=== PATIENT | male | born 1960 | race Caucasian/White ===

== ENCOUNTER 2019-04-10 10:50 | Inpatient (IN) | payer MEDICAID, SELFPAY ==
[2019-04-13] VITALS (12 sets, daily range): BP systolic 116–148; BP diastolic 82–102; PULSE 82–134; RESP 14–20; TEMP 36.5–37.5; O2SAT 90–99
[2019-04-13] MEDS: ipratropium-albuterol 3 mL Neb INHALATION ×2 (02:27→08:55)
[2019-04-13] MEDS: LORazepam 2 mg/mL INJ 1 mL IVP (07:37)
[2019-04-13] MEDS: folic acid 1 mg Tablet PO (08:25)
[2019-04-13] MEDS: multivitamin therapeutic Tablet 1 TAB PO (08:25)
[2019-04-13] MEDS: predniSONE 20 mg Tablet PO (08:25)
[2019-04-13] MEDS: duloxetine 20 mg Capsule PO (08:25)
[2019-04-13] MEDS: thiamine 100 mg Tablet PO (08:25)
[2019-04-13] MEDS: nicotine 21 mg Patch 1 PATCH TRANSDERMA (08:25)
[2019-04-13] MEDS: LORazepam 2 mg Tablet PO (09:31)
--- NOTE | 2019-04-13 10:57 | PM.PN ---
Subjective Subjective: Interval history: Overnight patient THALIA went up to greater than 20. This morning he was noted to be extremely jittery and tachycardic with a withdrawal of Precedex. He did receive some IV Ativan. Since resuming the Precedex this morning he is now more calm and not withdrawing. Vitals/I&O/Wt Last Vital Signs Temp 97.7 F 04/13/19 04:00 Pulse 104 H 04/13/19 09:00 Resp 16 04/13/19 08:58 BP 116/82 04/13/19 04:00 Pulse Ox 97 04/13/19 04:00 04/12/19 04/13/19 04/13/19 22:59 06:59 14:59 Intake Total 450 / 450 Balance 450 / 450 Weight last 48 hrs Weight 59.931 kg Physical Exam Const: COMMON NORMALS: no apparent distress, oriented x3 and alert GENERAL APPEARANCE: comfortable Resp: COMMON NORMALS: normal respiratory effort, no retractions, no use of accessory muscles and clear to auscultation bilaterally AUSCULTATION: clear to auscultation bilaterally Cardio: COMMON NORMALS: regular rate, regular rhythm, S1 normal heart sound and S2 normal heart sound RATE: regular rate RHYTHM: regular rhythm HEART SOUNDS: S1 normal and S2 normal GI: COMMON NORMALS: normal to inspection, nondistended, normoactive bowel sounds and non-tender Extremity: COMMON NORMALS: normal to inspection Neuro: COMMON NORMALS: oriented x3, CN's II-XII intact bilaterally and moves all extremities SENSORIUM/ORIENTATION: Yes alert Psych: COMMON NORMALS: mental status grossly normal OTHER: depressed Data Labs: Other Labs: All Labs last 24 hrs except CBC/BMP 04/12/19 04/12/19 03:04 03:04 RBC 3.82 L MCV 103.7 H D MCH 34.0 MCHC 32.8 RDW 13.4 MPV 10.2 Neut % (Auto) 79.2 Lymph % (Auto) 15.8 [place] % (Auto) 4.6 Eos % (Auto) 0.0 Baso % (Auto) 0.2 Neut # (Auto) 5.0 Lymph # (Auto) 1.0 [place] # (Auto) 0.3 Eos # (Auto) 0.0 Baso # (Auto) 0.0 Nucleated RBC % (a uto) 0 Nucleated RBCs # 0.0 GFR Calculation 172.0 H Random Glucose 175 H Calcium 9.6 Total Bilirubin 0.4 AST 86 H ALT 58 H Alkaline Phosphata se 108 Total Protein 6.5 L Albumin 4.6 Globulin 1.9 A&P Assessment and plan (1) COPD (chronic obstructive pulmonary disease): Status: Acute Code(s): J44.9 - Chronic obstructive pulmonary disease, unspecified (2) Alcohol withdrawal delirium: Poorly controlled with Ativan. With higher doses patient was noted to be going into deep sedation. Will stop ativan and switch to librium 50mg q8h. Also on Precedex infusion. Will aim to titrate down. Started On Cymbalta today. 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
[2019-04-13] MEDS: chlordiazePOXIDE 25 mg Capsule 50 MG PO (12:02)
--- NOTE | 2019-04-13 13:52 | PC.NURSE ---
PT resltess all morning requesting to leave and smoke cigarettes. Attmepting to get out of bed all morning. Bed alarm set, seizure precautions explained. Risks of DT's explained. Pt expeiriencing visual hallucinations seeing people out there plotting against him. Pt sweating and tremoring. Precedex drip restarted (see Mar) and other medications adjusted. at 1235 Pt attempting to get out of bed, RN in notices cigarettes in pt pocket. RN states that pt can't keep those in the room with him, that she will keep them at nurses station until his discharge. Pt refuses to be from cigarettes insists that he needs to go smoke. RN state she will have Dr. Ibanez come have conversation with pt. 1310 Dr. Ibanez at bedside along with Ace from Security. Policy on keeping cigarettes explained, risks of alcohol withdrawal explained. Pt insists on wanting to leave. Pt friend Gilson called to come get him per his request.
--- NOTE | 2019-04-13 14:34 | PC.CHAP ---
Pastoral Care Encounter/Spiritual Assessment Type of Contact [] Declined mud temperer visit [] Patient/Family/Request visit [] Outpatient visit [] Follow-up visit [] Physician referral [] Code/Alert [x] Routine visit [] Staff referral [] Actively dying [] Patient sleeping [] Family support [] [] Out of room [] Palliative care [] [] Receiving care in room [] Pre-surgical visit [] Trauma [] Long length of stay [] ICU visit [] Other: Relational/Emotional Strength [] Patient feels connected with others/family/visitors/staff [x Distress [x] Loneliness/isolation [] Abandonment Spirituality of Patient [x] Person of Keisha [x] Attends Restorationism of their Keisha [] Believes in Prayer [x] Reads Bible or Pentecostal materials [] There are Spiritual issues to be addressed Black Puller Interventions [x] Prayer [x] Active listening [] Non-anxious presence [x] Spiritual/emotional support [x] Crisis/trauma care [x] Spiritual counseling [] Bereavement support [] Provided bereavement packet [] Provided Bible/devotional materials [] Provided toy/stuffed animal, coloring book to patient or family member [] Completed spiritual assessment [] Provided Communion [] Anointing/[place] [] Salvation [] Other: Impact on Illness or Injury [] Angry [] Fearful [x] Anxious [] Often cries [] Exhaustion [] Unable to work [] Unable to attend voodoo [] Unable to walk/stand [] Unable to read [x] Unable to drive [] Unable to eat/drink [] Unable to sleep [x] Unable to be with family [] Other: Summary Talkive good commuination good attidue resppnsive to what is going on Time spent with patient 10 mins
--- NOTE | 2019-04-13 16:08 | PC.NURSE ---
Pt left AMA at 1515. Escorted to door with RN and friend Gilson. Belongings sent with pt.
--- NOTE | 2019-04-13 17:36 | P.CONIM_ITS ---
Providers/Reason for Consult Consulting Physican/Specialty*: Prem Smyth MD. Psychiatry. Reason for Consult*: Question of capacity for medical decision making Attending Physician: Meri Ibanez MD Primary Care Provider: Lazaro Mack MD Psych Consult HPI History of Present Illness Vasyl Reis is a 58 year old male who presented to the ICU after presenting to the ER with some dizziness and possible respiratory problems. Upon arrival he was also noted to be intoxicated and was admitted to the ICU. He has been here for a few days with his withdrawal being managed. He is a limited historian secondary to likely memory issues as well as guardedness related to hi s ultimate goals. He was upset multiple times during the hospitalization due to issues like not being able to smoke and the treatment team holding him down. There have been moments where he pulled his line out but he did allow them to re-establish a peripheral line. Per the treatment team he had a extensive conversation with him yesterday about the plan and ultimately if they can get another day or so in of treating his withdrawal they would feel comfortable discharging him and will give him prescriptions that he apparently has run out of. However today he is decided that he wants to leave. During the encounter there were moments where he was frustrated and upset with this radio script writer secondary to me identifying the fact that AMA discharges generally do not come with prescription coverage given that this physician has not had a chance to bring all concerns to a medically appropriate end. He understood the conversation and the points this radio script writer was making, however he also demonstrated very limited impulse control which seems to be clouding his ability to make the right decision. He was not the best historian. He did report that he gets around town with the assistance of a friend of the family and that he does not drive. He understands the impact of his drinking in the sense that he knows he could be bad he did not acknowledge that it was bad for him. But he was very driven by what is allowed. And per his report he is allowed to drink, it is not against the law. I discussed with him concerns about his beliefs and desire about getting certain prescriptions which was reportedly my goal of coming to the hospital in the first place, given that 1 of the medications he feels he should get is Ativan and he still has a little mild gait instability which is expected given that he has not really walked around for 3 or 4 days. He acknowledged his instability but stated they were keeping me in bed and saying that they were afraid I might fall. I am not going to fall. But he gives no rational argument as to how he knows that he wouldn't fall. We discussed the alternatives to treatment but he was focused on what he wanted and what he could not be prevented from doing. We discussed the risks of disengagement from treatment and he appeared to understand but was unwilling to consider another day of treatment. Ultimately the conversation ended after I had stepped out and talk to the doctor about her plans for prescriptions in the event he did leave AMA and return to convey that information and he angrily stood up and demanded to leave reporting that he would just get the prescriptions from somebody else. PFSH NPU PFSH: Statuses (acute, chronic, etc) shown below reflect problem list status as previously entered and may not be historically accurate Medical History Alcohol withdrawal delirium (Acute) COPD (chronic obstructive pulmonary disease) (Acute) continue nebulization q4h. Taper steroids to 10mg po qd. Social History Smoking and tobacco status: current every day smoker Alcohol intake: current Alcohol intake frequency: 3 or more drinks per day Alcohol type: hard liquor Substance/Drug Use: current Mental Status Exam MSE Comments: This is an underweight white male appearing older than his stated age with adequate dress and grooming but limited eye contact. No abnormal movements except for significant psychomotor retardation. Semicooperative with exam in mild distress sometimes moderate distress. Speech was decreased rate and volume with occasional bouts of raising his voice. Mood described as fine affect irritable. Thought process organized. Thought content: Patient denied any suicidal or homicidal ideation, there were no delusions reported or noted, he denied any auditory or visual hallucinations. Attention and concentration were intact and memory was generally reliable but none were formally tested. He is alert and oriented x3. Insight and judgment are limited. Vitals/I&O/Wt Last Vital Signs Temp 99.5 F 04/13/19 08:00 Pulse 88 04/13/19 14:00 Resp 20 H 04/13/19 14:00 BP 148/102 04/13/19 12:00 Pulse Ox 90 04/13/19 10:00 04/13/19 04/13/19 04/13/19 06:59 14:59 22:59 Intake Total 450 / 450 50.14 / 50.14 Balance 450 / 450 50.14 / 50.14 Weight last 48 hrs Weight 59.931 kg A&P Additional A&P Information Additional A&P Information: This is a 58-year-old white male with a history of alcohol use disorder, with recent ICU admission secondary to medical issues as well as withdrawal who presents desiring to discharge AMA with questions about his decision-making capacity. 1. Patient is capable of understanding the information provided to him including the risks, benefits and alternatives of treatment. 2. Patient appears to be having a common limitation seen with people with addictions that the drive to return to his smoking and to a lesser degree his drinking are clouding his judgment. 3. Additionally he may have some further issues related to a history of a TBI he reports which might be impacting his impulse control. 4. We will certainly not give him medication without leaving prior to treatment being concluded. 5. I would state that in situations like this when there is some ambiguity about capacity that he be allowed to exercise his civil liberties. Especially given that we are not suggesting that he have the door opened and he walked out in the elements and make his way home, but that the support network that he generally relies on is mobilized for his discharge. They have been made abreast of the concerns. And they are used to him being in this condition to a large extent. Attestations NPU Medical Necessity Statement*: Inpatient hospitalization is medically necessary and the clinically appropriate intervention at this time. However patient has requesting to leave AMA. We will defer to the treating physician but support her plan to allow AMA discharge as noted in this document. Coding Level of Care Code Acute [facility] Caretaker for Josey Hope
--- NOTE | 2019-04-14 10:47 | PC.NURSE ---
[facility] at [place] on phone stating Mr. Reis is looking for his Zyprexa and Hydrocodone prescriptions. Double checked with Dr Ibanez , via phone, Pt left AMA, no prescriptions given. Informed [facility] staff of this.
--- NOTE | 2019-05-27 07:46 | PM.DCS ---
Discharge Providers Date of Admission: 04/10/19 10:50 Date of Discharge: 04/13/19 Attending Provider at Admission: Meri Ibanez MD Attending Provider at Discharge: Meri Ibanez MD Primary Care Provider: Lazaro Mack MD Diagnoses at Discharge Discharge Diagnosis (1) COPD (chronic obstructive pulmonary disease): Status: Acute Problem details: continue nebulization q4h. Taper steroids to 10mg po qd. (2) Alcohol withdrawal delirium: Status: Acute Reason for Visit Reason for Visit: Reason For Visit: Copd Exacerbation, Alcohol Intoxication Hospital Course Discharge Summary: patient left AMA with his friend Gilson in spite of being counselled as to adverse effects such as risk of withdrawal, respiratory arrest and even . He is alert, awake at time of discharge, off precedex and wishes to leave AMA. Discharge Data Vitals: Last Vital Signs Temp 99.5 F 04/13/19 08:00 Pulse 88 04/13/19 14:00 Resp 20 H 04/13/19 14:00 BP 148/102 04/13/19 12:00 Pulse Ox 90 04/13/19 10:00 Discharge Plan Discharge Patient Disposition: Left Against Medical Advice Condition: Stable Prescriptions: No Action No Known Home Medications RF: 0 Discharge Date/Time: 04/13/19 15:15 Discharge Attestations Time Spent in Discharge Care*: other Quality Metrics Clinical Quality Measures During this hospital stay, did patient experience: None Coding Level of Care Code Acute Technical Associate for Chg Fwd Diagnoses COPD (chronic obstructive pulmonary disease) J44.9 Alcohol withdrawal delirium F10.231
== END 2019-04-13 15:15 | disposition left against medical advice (07) | DRG 894 ==
PROVIDERS: Admitting Provider Student in an Organized Health Care Education/Training Program; Emergency Provider Student in an Organized Health Care Education/Training Program; Family Provider Family Medicine; PCP Family Medicine; Referring Provider Student in an Organized Health Care Education/Training Program; Visit Provider Student in an Organized Health Care Education/Training Program
DX: F10.229 Alcohol dependence with intoxication, unspecified (principal); F10.239 Alcohol dependence with withdrawal, unspecified; Y90.8 Blood alcohol level of 240 mg/100 ml or more; J44.9 Chronic obstructive pulmonary disease, unspecified; F17.210 Nicotine dependence, cigarettes, uncomplicated
CPT/HCPCS: 12345; 36415; 36416; 36600; 71045; 80053; 80307; 81001; 82550; 82803; 82962; 83735; 83880; 84484; 85007; 85025; 85027; 87040; 87804; 93005; 94640; 96372; 96374; 96375; 96376; 97161; 97530; 99252; 99285; G0378; J0456; J1630; J1650; J1885; J2060; J2920; J2930; J7512; J7611; J7614; J7644; J7799

== ENCOUNTER 2020-07-10 18:58 | Emergency (ER) | payer MEDICAID, SELFPAY ==
[2020-07-10 19:01] VITALS: BP 124/83; PULSE 92; RESP 14; TEMP 36.8; O2SAT 94; BMI 19.1
--- NOTE | 2020-07-10 19:06 | ED_ITS ---
HPI - Back Pain/Injury General: Chief Complaint: Extremity Injury, Lower Stated Complaint: BILAT LOWER EXT PAIN Time Seen by Provider: 07/10/20 18:59 Source: patient and EMS Mode of arrival: EMS Limitations: no limitations History of Present Illness: HPI Narrative: 59-year-old male who has a history of chronic pain with chronic extremity pain from from an injury years ago. He states he has been in pain for years. He states that he had a fall roughly a month ago and injured his lower back. He states he been having increasing back and leg pain since then. He states he been having difficulty walking. Denies any leg injuries. Rates his pain a 7 out of 10. Denies hitting his head. Denies any fevers. Associated symptoms: Deny abdominal pain, chills, dysuria, fever(s), nausea or vomiting Review of Systems Const: Denies: fever(s), chills, body aches or change in appetite Eyes: Denies: blurry vision or eye discomfort ENMT: Denies: throat pain or dental pain Card: Denies: chest pain Resp: Denies: dyspnea GI: Denies: abdominal pain, nausea, vomiting or diarrhea : Denies: dysuria Musc: Reports: back pain and extremity pain Skin/Breast: Denies: rash Neuro: Denies: headache(s) Psych: Denies: depression Gabe/Lymph: Denies: easy bruising All/Imm: Denies: urticaria [facility] ED PFSH: Medical History (Updated 07/10/20 @ 21:37 by Crystal Javed MD) Alcohol withdrawal delirium COPD (chronic obstructive pulmonary disease) continue nebulization q4h. Taper steroids to 10mg po qd. Social History Smoking and tobacco status: current every day smoker Alcohol intake: current Alcohol intake frequency: 3 or more drinks per day Alcohol type: hard liquor Physical Exam Const: COMMON NORMALS: no acute distress, patient oriented x3 and healthy appearing HENMT: COMMON NORMALS: normocephalic and atraumatic HEAD & SCALP: normocephalic and atraumatic Eye: COMMON NORMALS: Equal, round and reactive pupils present and EOMs intact bilaterally PUPIL: Yes Equal, round and reactive pupils present Neck/C-Spine: COMMON NORMALS: full ROM and supple Chest: COMMONS NORMALS: normal inspection of the chest and normal palpation of entire chest wall Resp: COMMON NORMALS: normal respiratory effort, No retractions, No use of accessory muscles and clear to auscultation bilaterally AUSCULTATION: clear to auscultation bilaterally Cardio: COMMON NORMALS: regular rate, regular rhythm and No murmurs present (Cardio) RATE: regular rate RHYTHM: regular rhythm GI: COMMON NORMALS: Normal to inspection, nondistended, normoactive bowel sounds present, Soft to palpation, non-tender and no masses PALPATION: Yes Soft to palpation Back/Pelvis: OTHER: Tenderness along L and T-spine with no obvious abnormali ties Extremity: COMMON NORMALS: normal to inspection and full ROM Neuro: COMMON NORMALS: patient oriented x3, moves all extremities and no focal motor deficits Psych: COMMON NORMALS: mental status grossly normal, Normal thought process present and cooperative THOUGHT PROCESS: Normal thought process present Skin: COMMON NORMALS: no rashes or lesions noted and no wounds GENERAL SKIN EXAM: no rashes or lesions noted Course Vital Signs: Vital signs: Vital Signs Temperature 98.2 F 07/10/20 22:37 Pulse Rate 81 07/10/20 22:37 Respiratory Rate 16 07/10/20 22:37 Blood Pressure 156/109 07/10/20 22:37 Pulse Oximetry 93 07/10/20 22:37 MDM - Back Pain/Injury MDM Narrative: Medical decision making narrative: Patient presents here with a fall and chronic lower extremity and back pain. Exam of his legs are normal and he has no fractures in his back. He does have rib fractures from his fall and of possible pneumonia. We will place him on pain medicine and antibiotics needs follow-up with PCP for repeat imaging. He is return if worsening. Lab Data: Labs: Lab Results 07/10/20 07/10/20 Range/Units 19:58 19:58 WBC 4.1 (4.0-10.0) 10^3/ uL RBC 3.26 L (4.1-5.3) 10^6/u L Hgb 10.2 L (11.7-16.6) g/dL Hct 33.6 L (42.0-52.0) % MCV 103.1 H (80-94) fL MCH 31.3 (28.0-34.0) pg MCHC 30.4 (30.0-36.0) g/dL RDW 17.7 H (12.1-15.1) % Plt Count 307 (130-400) 10^3/c mm MPV 10.3 (7.4-10.4) fL Neut % (Auto) 47.3 % Lymph % (Auto) 43.0 % White % (Auto) 7.6 % Eos % (Auto) 0.7 % Baso % (Auto) 1.2 % Neut # (Auto) 1.93 (1.8-7.7) 10^3/u L Lymph # (Auto) 1.8 (0.8-4.8) 10^3/u L White # (Auto) 0.3 (0.2-0.9) 10^3/u L Eos # (Auto) 0.0 (0.0-0.8) 10^3/u L Baso # (Auto) 0.1 (0.0-0.1) 10^3/u L Nucleated RBC % (a uto) 0 % Nucleated RBCs # 0.0 /100WBC Sodium 142 (136-145) mmol/L Potassium 3.7 (3.5-5.1) mmol/L Chloride 100 (98-107) mmol/L Carbon Dioxide 28 (22-29) mmol/L Anion Gap 17.7 (5-19) BUN 6 (6-20) mg/dL Creatinine 0.3 L (0.7-1.2) mg/dL GFR Calculation 309.0 H (90-130) mL/min Glucose 82 (65-115) mg/dL Calculated Osmolal ity 291 (285-295) mOsm/k g Calcium 8.7 (8.5-10.5) mg/dL Imaging Data^: CT Chest: Attestation: I personally reviewed and interpreted this imaging study as follows: Radiologist's impression: [address] [address] [address] Scan Report Signed Patient: Vasyl Reis Unit #: [id number] : 1960 Age/Sex: 59 / M ADM Date: 07/10/20 Loc: ER Room/Bed: Attending Dr: Ordering Provider/Ordering MD: Crystal Javed MD Date of Service: 07/10/20 Procedure(s): CT chest w con* [id number] Accession Number(s): [id number] Report Number: [id number] PROCEDURE INFORMATION: Exam: CT Chest With Contrast; Diagnostic Exam date and time: 07/10/2020 7:58 PM Age: 59 years old Clinical indication: Injury or trauma; Fall; Blunt trauma (contusions or hematomas); Additional info: Rib FX TECHNIQUE: Imaging protocol: Diagnostic computed tomography of the chest with contrast. Total images: 281 Radiation optimization: All CT scans at this facility use at least one of these dose optimization techniques: automated exposure control; mA and/or kV adjustment per patient size (includes targeted exams where dose is matched to clinical indication); or iterative reconstruction. Contrast material: OMNI 300; Contrast volume: 95 ml; Contrast route: INTRAVENOUS (IV); COMPARISON: CR Chest 1 [place] [id number] 04/09/2019 2:15 AM RADIATION DOSE METRICS: Total DLP (mGy-cm): 378.96 FINDINGS: Lungs: Advanced centrilobular emphysema. Small volume subsegmental patchy consolidated alveolar airspace disease involving predominantly the posterior basal segment left lower lobe which could reflect active pneumonia. Would recommend follow-up until clearing to exclude a potential for underlying neoplasm. 5 mm posterior basal segment right lower lobe calcified pulmonary nodule (series 2, image 44) of antecedent granulomatous disease. Minimal dependent atelectasis. Pleural spaces: No pneumothorax. No pleural effusion. Heart: Coronary artery disease. No cardiomegaly. No visible pericardial effusion. Aorta: The thoracic aorta is nonaneurysmal. No visible intimal flap or dissection. Mild arteriosclerosis. Lymph nodes: No visible active mediastinal or hilar lymphadenopathy. Liver: Diffuse fatty infiltration of the liver. Gallbladder and bile ducts: Hepatization of the gallbladder within the field of view. Bones/joints: Nondisplaced fracture right 10th posterior rib at the costovertebral junction. Cortical fracture right 9th posterior rib at the costovertebral junction. Subacute minimally displaced posterolateral right 9th and 10th rib fractures. Old bilateral rib fractures. Soft tissues: No visible soft tissue contusion, hematoma, or seroma. CT/CT chest w con* [id number] IMPRESSION: 1. Small volume subsegmental patchy consolidated alveolar airspace disease involving predominantly the posterior basal segment left lower lobe which could reflect active pneumonia. Would recommend follow-up until clearing to exclude a potential for underlying neoplasm. 2. Advanced centrilobular emphysema. 3. Nondisplaced fracture right 10th posterior rib at the costovertebral junction. Cortical fracture right 9th posterior rib at the costovertebral junction. Subacute minimally displaced posterolateral right 9th and 10th rib fractures. Old bilateral rib fractures. 4. Coronary artery disease. 5. Antecedent granulomatous disease. ct l spine: Attestation: I personally reviewed and interpreted this imaging study as follows: Radiologist's impression: [employer] [address] [place] [address] CT Scan Report Signed Patient: Vasyl Reis Unit #: [id number] : 1960 Age/Sex: 59 / M ADM Date: 07/10/20 Loc: ER Room/Bed: Attending Dr: Ordering Provider/Ordering MD: Crystal Javed MD Date of Service: 07/10/20 Procedure(s): CT lumbar spine wo con* [id number] Accession Number(s): [id number] Report Number: [id number] PROCEDURE INFORMATION: Exam: CT Lumbar Spine Without Contrast Exam date and time: 07/10/2020 7:09 PM Age: 59 years old Clinical indication: Low back pain; Additional info: Fall TECHNIQUE: Imaging protocol: Computed tomography images of the lumbar spine without contrast. Total images: 490 Radiation optimization: All CT scans at this facility use at least one of these dose optimization techniques: automated exposure control; mA and/or kV adjustment per patient size (includes targeted exams where dose is matched to clinical indication); or iterative reconstruction. COMPARISON: No relevant prior studies available. RADIATION DOSE METRICS: Total DLP (mGy-cm): 1270.27 FINDINGS: Vertebrae: No acute fracture. Normal alignment. No visible traumatic spondylolysis or spondylolisthesis. Mild degenerative disease. Discs/Spinal canal/Neural foramina: Intervertebral disc space heights preserved. No visible herniated nucleus pulposis or significant posterior annular disc bulge. No significant disc protrusion. No severe spinal canal stenosis. No significant neural foraminal narrowing. Liver: Incidental note of diffuse fatty infiltration of the liver. Soft tissues: No visible soft tissue contusion, hematoma, or seroma. CT/CT lumbar spine wo con* [id number] IMPRESSION: No acute findings. ct t spine: Radiologist's impression: [employer] [place] [address] CT Scan Report Signed Patient: Vasyl Reis Unit #: [id number] : 1960 Age/Sex: 59 / M ADM Date: 07/10/20 Loc: ER Room/Bed: Attending Dr: Ordering Provider/Ordering MD: Crystal Javed MD Date of Service: 07/10/20 Procedure(s): CT thoracic spin wo con* [id number] Accession Number(s): [id number] Report Number: [id number] PROCEDURE INFORMATION: Exam: CT Thoracic Spine Without Contrast Exam date and time: 07/10/2020 7:09 PM Age: 59 years old Clinical indication: Pain in thoracic spine; Additional info: Fall TECHNIQUE: Imaging protocol: Computed tomography images of the thoracic spine without contrast. Total images: 530 Radiation optimization: All CT scans at this facility use at least one of these dose optimization techniques: automated exposure control; mA and/or kV adjustment per patient size (includes targeted exams where dose is matched to clinical indication); or iterative reconstruction. COMPARISON: No relevant prior studies available. RADIATION DOSE METRICS: Total DLP (mGy-cm): 812.85 FINDINGS: Vertebrae: Scoliosis. No visible fracture of the thoracic spine. Osteopenia/osteoporosis. Mild degenerative disease. Discs/Spinal canal/Neural foramina: No visible herniated nucleus pulposis or significant posterior annular disc bulge that would result in central canal stenosis or neural foraminal stenosis. Other bones/joints: Nondisplaced fracture right 10th posterior rib at the costovertebral junction. Cortical fracture right 9th posterior rib at the costovertebral junction. Old left rib fractures. Soft tissues: No visible soft tissue contusion, hematoma, or seroma. Lungs: Advanced centrilobular emphysema. Small volume subsegmental patchy consolidated alveolar airspace disease involving predominantly the posterior basal segment left lower lobe which could reflect active pneumonia. Would recommend follow-up until clearing to exclude a potential for underlying neoplasm. Heart: Coronary artery disease. CT/CT thoracic spin wo con* [id number] IMPRESSION: 1. Nondisplaced fracture right 10th posterior rib at the costovertebral junction. 2. Cortical fracture right 9th posterior rib at the costovertebral junction. 3. Old left rib fractures. 4. Advanced centrilobular emphysema. 5. Small volume subsegmental patchy consolidated alveolar airspace disease involving predominantly the posterior basal segment left lower lobe which could reflect active pneumonia. Would recommend follow-up until clearing to exclude a potential for underlying neoplasm. Discharge Plan Discharge Patient Disposition: Home Clinical Impression: Closed rib fracture Qualifiers: Encounter type: initial encounter Rib fracture type: multiple ribs Laterality: unspecified laterality Qualified Code(s): S22.49XA - Multiple fractures of ribs, unspecified side, initial encounter for closed fracture Pneumonia Qualifiers: Pneumonia type: due to unspecified organism Laterality: unspecified laterality Lung location: unspecified part of lung Qualified Code(s): J18.9 - Pneumonia, unspecified organism Back pain Qualifiers: Back pain location: thoracic back pain Chronicity: chronic Back pain laterality: bilateral Qualified Code(s): M54.6 - Pain in thoracic spine Condition: Stable Prescriptions: New hydrocodone-acetaminophen 5-325 mg tablet 1 tab PO Q6H PRN (Reason: pain) Qty: 14 RF: 0 doxycycline hyclate 100 mg capsule 100 mg PO BID 7 Days Qty: 14 RF: 0 Discharge Orders: Discharge ED (Routine); Ordered 07/10/20 Ordered By: Crystal Javed Discharge Diet: Advance as tolerated Discharge Activity: Resume usual activity Patient Instructions: Rib Fracture (ED), Opioid Safety Coding Level of Care Code 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
[2020-07-10 19:11] VITALS: PULSE 68
[2020-07-10 19:52] VITALS: RESP 16; O2SAT 98
[2020-07-10] MEDS: morphine 4 mg/mL SDV 1 mL IVP (19:52)
[2020-07-10] MEDS: ondansetron 2 mg/ML SDV 2 mL 4 MG IVP (19:53)
--- NOTE | 2020-07-10 19:58 | CTR_ITS ---
PROCEDURE INFORMATION: Exam: CT Chest With Contrast; Diagnostic Exam date and time: 07/10/2020 7:58 PM Age: 59 years old Clinical indication: Injury or trauma; Fall; Blunt trauma (contusions or hematomas); Additional info: Rib FX TECHNIQUE: Imaging protocol: Diagnostic computed tomography of the chest with contrast. Total images: 281 Radiation optimization: All CT scans at this facility use at least one of these dose optimization techniques: automated exposure control; mA and/or kV adjustment per patient size (includes targeted exams where dose is matched to clinical indication); or iterative reconstruction. Contrast material: OMNI 300; Contrast volume: 95 ml; Contrast route: INTRAVENOUS (IV); COMPARISON: CR Chest 1 [place] [id number] 04/09/2019 2:15 AM RADIATION DOSE METRICS: Total DLP (mGy-cm): 378.96 FINDINGS: Lungs: Advanced centrilobular emphysema. Small volume subsegmental patchy consolidated alveolar airspace disease involving predominantly the posterior basal segment left lower lobe which could reflect active pneumonia. Would recommend follow-up until clearing to exclude a potential for underlying neoplasm. 5 mm posterior basal segment right lower lobe calcified pulmonary nodule (series 2, image 44) of antecedent granulomatous disease. Minimal dependent atelectasis. Pleural spaces: No pneumothorax. No pleural effusion. Heart: Coronary artery disease. No cardiomegaly. No visible pericardial effusion. Aorta: The thoracic aorta is nonaneurysmal. No visible intimal flap or dissection. Mild arteriosclerosis. Lymph nodes: No visible active mediastinal or hilar lymphadenopathy. Liver: Diffuse fatty infiltration of the liver. Gallbladder and bile ducts: Hepatization of the gallbladder within the field of view. Bones/joints: Nondisplaced fracture right 10th posterior rib at the costovertebral junction. Cortical fracture right 9th posterior rib at the costovertebral junction. Subacute minimally displaced posterolateral right 9th and 10th rib fractures. Old bilateral rib fractures. Soft tissues: No visible soft tissue contusion, hematoma, or seroma. CT/CT chest w con* [id number] IMPRESSION: 1. Small volume subsegmental patchy consolidated alveolar airspace disease involving predominantly the posterior basal segment left lower lobe which could reflect active pneumonia. Would recommend follow-up until clearing to exclude a potential for underlying neoplasm. 2. Advanced centrilobular emphysema. 3. Nondisplaced fracture right 10th posterior rib at the costovertebral junction. Cortical fracture right 9th posterior rib at the costovertebral junction. Subacute minimally displaced posterolateral right 9th and 10th rib fractures. Old bilateral rib fractures. 4. Coronary artery disease. 5. Antecedent granulomatous disease. Radiation Dose CTDIVOL = (mGy): DLP = 378.96 (mGy-cm)
[2020-07-10 20:19] LABS: Basophils # 0.1 10^3/uL (0.0-0.1); Basophils % 1.2 %; Eosinophils % 0.7 %; Hematocrit 33.6 % (42.0-52.0); Hemoglobin 10.2 g/dL (11.7-16.6); Lymphocytes # 1.8 10^3/uL (0.8-4.8); Mean Corpuscular HGB Conc 30.4 g/dL (30.0-36.0); Mean Corpuscular Hemoglobin 31.3 pg (28.0-34.0); Mean Corpuscular Volume 103.1 fL (80-94); Mean Platelet Volume 10.3 fL (7.4-10.4); Monocytes # 0.3 10^3/uL (0.2-0.9); Monocytes % 7.6 %; Neutrophils # 1.93 10^3/uL (1.8-7.7); Neutrophils % 47.3 %; Nucleated Red Blood Cells % 0 %; Platelet Count 307 10^3/cmm (130-400); Red Blood Count 3.26 10^6/uL (4.1-5.3); Red Cell Distribution Width 17.7 % (12.1-15.1); White Blood Count 4.1 10^3/uL (4.0-10.0)
[2020-07-10] MEDS: iohexol 300 mg/mL 100 mL Btl IV (20:19)
[2020-07-10 20:43] LABS: Blood Urea Nitrogen 6 mg/dL (6-20); Calcium 8.7 mg/dL (8.5-10.5); Carbon Dioxide 28 mmol/L (22-29); Chloride 100 mmol/L (98-107); Glucose 82 mg/dL (65-115); Osmolality Calculated 291 mOsm/kg (285-295); Sodium 142 mmol/L (136-145)
[2020-07-10 20:49] LABS: Slide Review Slide Review Perform
[2020-07-10 20:50] LABS: Anion Gap 17.7 (5-19); Potassium 3.7 mmol/L (3.5-5.1)
[2020-07-10 21:11] VITALS: BP 127/76; PULSE 70; RESP 24; O2SAT 95
[2020-07-10] MEDS: HYDROcodone-acetaminophen 10-325 mg Tablet 1 TAB PO (22:29)
[2020-07-10 22:37] VITALS: BP 156/109; PULSE 81; RESP 16; TEMP 36.8; O2SAT 93
== END 2020-07-10 22:39 | disposition home or self-care (01) ==
PROVIDERS: Emergency Provider Emergency Medicine
DX: S22.41XA Multiple fractures of ribs, right side, initial encounter for closed fracture (principal); J18.9 Pneumonia, unspecified organism; M54.6 Pain in thoracic spine; J44.9 Chronic obstructive pulmonary disease, unspecified; F17.210 Nicotine dependence, cigarettes, uncomplicated; W19.XXXA Unspecified fall, initial encounter
CPT/HCPCS: 71260; 72128; 72131; 80048; 85025; 96374; 96375; 99283; J2270; J2405; Q9967

== ENCOUNTER 2020-07-15 19:00 | Emergency (ER) | payer MEDICAID, SELFPAY ==
[2020-07-15 19:33] VITALS: BP 105/76; PULSE 100; RESP 18; TEMP 36.7; O2SAT 98; BMI 15.8
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
[2020-07-15 20:39] VITALS: BP 110/80; PULSE 90; RESP 16; O2SAT 96
[2020-07-15] MEDS: HYDROcodone-acetaminophen 7.5-325 mg Tablet 1 TAB PO (20:40)
[2020-07-15] MEDS: dexamethasone 10 mg/mL INJ IM (20:43)
[2020-07-15 20:46] VITALS: PULSE 90
[2020-07-15 21:04] VITALS: BP 110/80; PULSE 91; RESP 15; TEMP 36.7; O2SAT 98
--- NOTE | 2020-07-18 11:50 | DCPLANNER ---
manager commercial sales had message to speak with patient about getting established with a primary care physician. manager commercial sales spoke with patient, he stated that he would like for comp field case manager to get him established with a primary care physician. manager commercial sales offered to get patient established at the [facility], patient stated that would be fine, but he does not know when he could make the appointment. Patient is to call comp field case manager when he wants an appointment scheduled.
== END 2020-07-15 21:16 | disposition home or self-care (01) ==
PROVIDERS: Emergency Provider Physician Assistant
DX: G89.29 Other chronic pain (principal); M79.605 Pain in left leg; M79.604 Pain in right leg; J44.9 Chronic obstructive pulmonary disease, unspecified; F17.210 Nicotine dependence, cigarettes, uncomplicated
CPT/HCPCS: 96372; 99283; J1100

== ENCOUNTER 2020-08-28 10:00 | Inpatient (IN) | payer MEDICAID, SELFPAY ==
[2020-08-28] VITALS (17 sets, daily range): BP systolic 97–123; BP diastolic 65–89; PULSE 76–119; RESP 14–27; TEMP 36.7–37.1; O2SAT 94–100; BMI 20.4
--- NOTE | 2020-08-28 10:15 | CT_ITS ---
WS: [id number] CT pelvis TECHNIQUE: Contrast-enhanced CT of the pelvis with coronal and sagittal reformatted images. CLINICAL INFORMATION: decub ulcer with lots of surrounding edema/cellulitis COMPARISON: None. DLP: 247.[address] scans at [facility] use at least one of these dose optimization techniques: automat ed exposure control; mA and/or kV adjustment per patient size (includes targeted exams where dose is matched to clinical indication); or iterative reconstruction. FINDINGS: Small amount of subcutaneous edema in the midline soft tissues overlying the distal sacral soft tissues. Small amount of edema extends along the upper gluteal cleft with edematous anal sphinct er and perirectal soft tissues. No evidence of drainable abscess or fluid collection. No evidence of perirectal fistula No evidence of osteomyelitis. Urine distended bladder. Prostate size appears normal. Mild body wall a nasarca. Diffuse fatty infiltration of the liver. Urine distended bladder. Distended rectum with rectosigmoid constipation. Small fat-containing umbilical hernia. Normal caliber distal abdominal aorta. CT/CT pelvis w con* [id number] IMPRESSION: 1. Small amount of subcutaneous edema overlying the distal sacrum with a tiny amount of induration extending along the upper gluteal cleft and perirectal sof t tissues. No evidence of drainable abscess or fluid collection. No definite ev idence of perirectal fistula. 2. Urine distended bladder. 3. Rectal constipation. 4. Diffuse fatty infiltration of the liver. Notified KYLIE Newton at 08/28/2020 12:03 PM.
--- NOTE | 2020-08-28 10:15 | XRR_ITS ---
PROCEDURE INFORMATION: Exam: XR Chest Exam date and time: 08/28/2020 10:22 AM Age: 59 years old Clinical indication: Other: AMS; Poss sepsis TECHNIQUE: Imaging protocol: XR of the chest. Views: 1 view. COMPARISON: CT chest w con* [id number] 07/10/2020 8:28 PM FINDINGS: Lungs: Unremarkable. No consolidation. Pleural spaces: Unremarkable. No pleural effusion. No pneumothorax. Heart/Mediastinum: Unremarkable. No cardiomegaly. Bones/joints: There are multiple old healed right rib fractures. XR/XR chest 1V portable [id number] IMPRESSION: No significant cardiopulmonary abnormality.
--- NOTE | 2020-08-28 10:20 | W.ED.GENADLT ---
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 impression: [facility] [id number] [place], [place] [address]Osjhiadgzv ReportSigned Patient: Vasyl Reis #: [id number]: 1960Acct#:[id number]/Sex: 59 / MADM Date: 08/28/20Loc: ERRoom/Bed:Attending Dr: Ordering Provider/Ordering MD: Shani Cm Date of Service: 08/28/20 Procedure(s): US gall bladder 24249 Accession Number(s): [id number] Report Number: [id number] WS: [id number] ULTRASOUND ABDOMEN LIMITED CLINICAL INFORMATION: RUQ pain, elevated LFTs COMPARISON: None. FINDINGS: Liver Size: Enlarged Craniocaudal length: 17.4 cm. Echogenicity: Dense Surface nodularity: None. Mass (size and location): None. Bile ducts Intrahepatic ducts: Normal. Common bile duct diameter: 0.3 cm. Gallbladder Tiny gallstones or sludge in the gallbladder Gallbladder wall thickening: None. Pericholecystic fluid: None. Sonographic Arias sign: Absent. Pancreas Normal as visualized. Right kidney: Normal. Hydronephrosis: None. Size: 11.1 cm x 5.6 cm x 5.2 cm. Abdominal aorta and IVC Visualized portions are normal. Ascites: None. US/US gall bladder 64038 IMPRESSION: 1. Hepatomegaly with diffuse fatty infiltration. 2. Tiny gallstones or sludge in the gallbladder. No gallbladder wall thickening or pericholecystic fluid. 3. No hydronephrosis in right kidney. Dictated By:Rob Grey MDSigned By:Rob Grey MDSigned Date/Time:08/28/20 1242DD/ 1234 Discharge Plan Discharge Patient Disposition: Admitted As Inpatient Admit Provider: Aramis Canas Clinical Impression: Acute alcohol intoxication, Decubitus ulcer of back, stage 2, Sepsis Condition: Stable Coding Level of Care Code ED Securities Adviser for Chg Fwd Exam Detailed Documented by User: Mariano Lopes MD, [facility] [place] 08/28/20 22:49 HPI - General Adult General: Chief complaint: General Medical Stated complaint: HURTING ALL OVER/ ETOH/ GENERALIZED WKNS Time Seen by Provider: 08/28/20 10:03 PFSH ED PFSH: Medical History Alcohol withdrawal delirium Alcoholism COPD (chronic obstructive pulmonary disease) continue nebulization q4h. Taper steroids to 10mg po qd. Social History (Updated 08/28/20 @ 15:23 by Aramis Canas MD) Smoking and tobacco status: current every day smoker Alcohol intake: current Alcohol intake frequency: 3 or more drinks per day Alcohol type: hard liquor Caregiver/support person: No Lives independently: No Household members: friend(s) Course Consultations: Consultation #1: Discussed the patient with Dr. Mata, hospitalist he kindly accepted the patient to his service. Time: 13:35 Vital Signs: Vital signs: Vital Signs Temperature 98.0 F 08/28/20 19:47 Pulse Rate 110 H 08/28/20 19:47 Respiratory Rate 18 08/28/20 19:47 Blood Pressure 122/84 08/28/20 19:47 Pulse Oximetry 99 08/28/20 19:47 MDM - General Adult MDM Narrative: Medical decision making narrative: Kindly evaluate the midlevel providers note for complete history and physical examination. I agree with her findings. Essentially he is a 59-year-old male who is in poor living conditions, he is an alcoholic and has sacral decubitus ulcer. He is admitted to the hospitalist service for further evaluation and management. Lab Data: Labs: Lab Results 08/28/20 08/28/20 08/28/20 Range/Units 10:40 11:00 11:00 WBC 8.7 (4.0-10.0) 10^3/ uL RBC 2.80 L (4.1-5.3) 10^6/u L Hgb 9.8 L (11.7-16.6) g/dL Hct 28.7 L (42.0-52.0) % MCV 102.5 H (80-94) fL MCH 35.0 H (28.0-34.0) pg MCHC 34.1 (30.0-36.0) g/dL RDW 17.2 H (12.1-15.1) % Plt Count 310 (130-400) 10^3/c mm MPV 9.1 (7.4-10.4) fL Neut % (Auto) 83.4 % Lymph % (Auto) 8.2 % [place] % (Auto) 7.5 % Eos % (Auto) 0.0 % Baso % (Auto) 0.2 % Neut # (Auto) 7.23 (1.8-7.7) 10^3/u L Lymph # (Auto) 0.7 L (0.8-4.8) 10^3/u L [place] # (Auto) 0.7 (0.2-0.9) 10^3/u L Eos # (Auto) 0.0 (0.0-0.8) 10^3/u L Baso # (Auto) 0.0 (0.0-0.1) 10^3/u L Nucleated RBC % (a uto) 0.2 % Nucleated RBCs # 0.0 /100WBC PT (12.1-14.9) SECO NDS INR (0.8-1.2) Specimen Type Arterial Sample Site Radial, right ABG pH 7.47 H (7.35-7.45) ABG pCO2 34.1 L (35-45) mmHg ABG pO2 64.2 L (80.0-100.0) mmH g ABG HCO3 24.8 (22-26) mmol/L ABG O2 Saturation 89.4 ABG Base Excess 1.2 (-2.0-2.0) mmol/ L Vasyl Test Pos A-a O2 Gradient 5.6 (5-10) mmHg Hematocrit 27.2 L (42-52) % Hgb O2 Saturation 86.6 L (95-100) % Carboxyhemoglobin 2.4 (0.4-20.1) %THgb Methemoglobin 0.8 (0.4-1.5) % Total Hemoglobin 8.9 L (14-18) g/dL Sodium 137.0 133 L (131-143) mmol/L Potassium 3.0 L 3.2 L (3.5-5.0) mmol/L Glucose 137.0 H 123 H (70-115) mg/dL Ionized Calcium 1.1 (1.1-1.4) mmol/L O2 Delivery Device Room air FiO2 21.0 % Archives Technician ID [place] Chloride 89 L (98-107) mmol/L Carbon Dioxide 22 (22-29) mmol/L Anion Gap 25.2 H (5-19) BUN 15 (6-20) mg/dL Creatinine 0.5 L (0.7-1.2) mg/dL GFR Calculation 171.4 H (90-130) mL/min Calculated Osmolal ity 278 L (285-295) mOsm/k g Lactic Acid (0.5-2.2) mmol/L Calcium 7.9 L (8.5-10.5) mg/dL Iron (59-158) ug/dL TIBC mcg/dl % Saturation (20-50) % Unsat Iron Binding (112-347) ug/dL Ferritin (30-400) ng/mL Total Bilirubin 1.1 (0.15-1.2) mg/dL AST 152 H (0-40) U/L ALT 45 H (0-41) U/L Alkaline Phosphata se 133 H (40-130) IU/L Ammonia (16-60) umol/L Creatine Kinase 190 (39-308) U/L Troponin T Baselin e (0-15) ng/L Troponin T 120 Min sun'aq (0-15) ng/L Delta Troponin T (0-10) ABS# C-Reactive Protein 10.1 H (0.0-4.9) mg/L NT-Pro-B Natriuret Pep 155 H (0-125) pg/mL Total Protein 6.6 (6.6-8.7) g/dL Albumin 3.6 (3.5-5.2) g/dL Globulin 3.0 (1.3-4.6) g/dL Vitamin B12 (232-1245) pg/mL Folate (4.5-32.2) ng/mL Procalcitonin 0.54 H (0-0.5) ng/mL TSH (0.27-4.20) uIU/ mL Urine Color (Yellow) Urine Appearance (CLEAR) Urine pH (5-7) Ur Specific Gravit y (1.005-1.030) Urine Protein (Negative) Urine Glucose (UA) (Normal) Urine Ketones (Negative) Urine Blood (Negative) Urine Nitrate (Negative) Urine Bilirubin (Negative) Urine Urobilinogen (Negative) mg/dL Ur Leukocyte Maribel ase (Negative) Urine RBC (0-2) /hpf Urine WBC (0-5) /hpf Ur Squamous Epith Cells (0-5) /hpf Amorphous Sediment Urine Bacteria (NONE) /hpf Hyaline Casts /lpf Urine Mucus /hpf Ur Random Sodium mmol/L Ur Random Potassiu m mmol/L Ur Random Chloride mmol/L Urine Opiates Scre en (Negative) ng/mL Ur Barbiturates Sc reen (Negative) ng/mL Ur Phencyclidine S crn (Negative) ng/mL Ur Amphetamines Sc reen (Negative) ng/mL U Benzodiazepines Scrn (Negative) ng/mL Urine Cocaine Scre en (Negative) ng/mL U Marijuana (THC) Screen (Negative) ng/mL Ethyl Alcohol 314 H* (0-10) mg/dL 08/28/20 08/28/20 08/28/20 Range/Units 11:00 11:00 11:00 WBC (4.0-10.0) 10^3/ uL RBC (4.1-5.3) 10^6/u L Hgb (11.7-16.6) g/dL Hct (42.0-52.0) % MCV (80-94) fL MCH (28.0-34.0) pg MCHC (30.0-36.0) g/dL RDW (12.1-15.1) % Plt Count (130-400) 10^3/c mm MPV (7.4-10.4) fL Neut % (Auto) % Lymph % (Auto) % [place] % (Auto) % Eos % (Auto) % Baso % (Auto) % Neut # (Auto) (1.8-7.7) 10^3/u L Lymph # (Auto) (0.8-4.8) 10^3/u L [place] # (Auto) (0.2-0.9) 10^3/u L Eos # (Auto) (0.0-0.8) 10^3/u L Baso # (Auto) (0.0-0.1) 10^3/u L Nucleated RBC % (a uto) % Nucleated RBCs # /100WBC PT (12.1-14.9) SECO NDS INR (0.8-1.2) Specimen Type Sample Site ABG pH (7.35-7.45) ABG pCO2 (35-45) mmHg ABG pO2 (80.0-100.0) mmH g ABG HCO3 (22-26) mmol/L ABG O2 Saturation ABG Base Excess (-2.0-2.0) mmol/ L Vasyl Test A-a O2 Gradient (5-10) mmHg Hematocrit (42-52) % Hgb O2 Saturation (95-100) % Carboxyhemoglobin (0.4-20.1) %THgb Methemoglobin (0.4-1.5) % Total Hemoglobin (14-18) g/dL Sodium (131-143) mmol/L Potassium (3.5-5.0) mmol/L Glucose (70-115) mg/dL Ionized Calcium (1.1-1.4) mmol/L O2 Delivery Device FiO2 % Archives Technician ID Chloride (98-107) mmol/L Carbon Dioxide (22-29) mmol/L Anion Gap (5-19) BUN (6-20) mg/dL Creatinine (0.7-1.2) mg/dL GFR Calculation (90-130) mL/min Calculated Osmolal ity (285-295) mOsm/k g Lactic Acid 3.8 H (0.5-2.2) mmol/L Calcium (8.5-10.5) mg/dL Iron (59-158) ug/dL TIBC mcg/dl % Saturation (20-50) % Unsat Iron Binding (112-347) ug/dL Ferritin (30-400) ng/mL Total Bilirubin (0.15-1.2) mg/dL AST (0-40) U/L ALT (0-41) U/L Alkaline Phosphata se (40-130) IU/L Ammonia 19 (16-60) umol/L Creatine Kinase (39-308) U/L Troponin T Baselin e 21 H (0-15) ng/L Troponin T 120 Min sun'aq (0-15) ng/L Delta Troponin T (0-10) ABS# C-Reactive Protein (0.0-4.9) mg/L NT-Pro-B Natriuret Pep (0-125) pg/mL Total Protein (6.6-8.7) g/dL Albumin (3.5-5.2) g/dL Globulin (1.3-4.6) g/dL Vitamin B12 (232-1245) pg/mL Folate (4.5-32.2) ng/mL Procalcitonin (0-0.5) ng/mL TSH (0.27-4.20) uIU/ mL Urine Color (Yellow) Urine Appearance (CLEAR) Urine pH (5-7) Ur Specific Gravit y (1.005-1.030) Urine Protein (Negative) Urine Glucose (UA) (Normal) Urine Ketones (Negative) Urine Blood (Negative) Urine Nitrate (Negative) Urine Bilirubin (Negative) Urine Urobilinogen (Negative) mg/dL Ur Leukocyte Maribel ase (Negative) Urine RBC (0-2) /hpf Urine WBC (0-5) /hpf Ur Squamous Epith Cells (0-5) /hpf Amorphous Sediment Urine Bacteria (NONE) /hpf Hyaline Casts /lpf Urine Mucus /hpf Ur Random Sodium mmol/L Ur Random Potassiu m mmol/L Ur Random Chloride mmol/L Urine Opiates Scre en (Negative) ng/mL Ur Barbiturates Sc reen (Negative) ng/mL Ur Phencyclidine S crn (Negative) ng/mL Ur Amphetamines Sc reen (Negative) ng/mL U Benzodiazepines Scrn (Negative) ng/mL Urine Cocaine Scre en (Negative) ng/mL U Marijuana (THC) Screen (Negative) ng/mL Ethyl Alcohol (0-10) mg/dL 08/28/20 08/28/20 08/28/20 Range/Units 11:00 11:00 11:00 WBC (4.0-10.0) 10^3/ uL RBC (4.1-5.3) 10^6/u L Hgb (11.7-16.6) g/dL Hct (42.0-52.0) % MCV (80-94) fL MCH (28.0-34.0) pg MCHC (30.0-36.0) g/dL RDW (12.1-15.1) % Plt Count (130-400) 10^3/c mm MPV (7.4-10.4) fL Neut % (Auto) % Lymph % (Auto) % [place] % (Auto) % Eos % (Auto) % Baso % (Auto) % Neut # (Auto) (1.8-7.7) 10^3/u L Lymph # (Auto) (0.8-4.8) 10^3/u L [place] # (Auto) (0.2-0.9) 10^3/u L Eos # (Auto) (0.0-0.8) 10^3/u L Baso # (Auto) (0.0-0.1) 10^3/u L Nucleated RBC % (a uto) % Nucleated RBCs # /100WBC PT 12.70 (12.1-14.9) SECO NDS INR 0.93 (0.8-1.2) Specimen Type Sample Site ABG pH (7.35-7.45) ABG pCO2 (35-45) mmHg ABG pO2 (80.0-100.0) mmH g ABG HCO3 (22-26) mmol/L ABG O2 Saturation ABG Base Excess (-2.0-2.0) mmol/ L Vasyl Test A-a O2 Gradient (5-10) mmHg Hematocrit (42-52) % Hgb O2 Saturation (95-100) % Carboxyhemoglobin (0.4-20.1) %THgb Methemoglobin (0.4-1.5) % Total Hemoglobin (14-18) g/dL Sodium (131-143) mmol/L Potassium (3.5-5.0) mmol/L Glucose (70-115) mg/dL Ionized Calcium (1.1-1.4) mmol/L O2 Delivery Device FiO2 % Archives Technician ID Chloride (98-107) mmol/L Carbon Dioxide (22-29) mmol/L Anion Gap (5-19) BUN (6-20) mg/dL Creatinine (0.7-1.2) mg/dL GFR Calculation (90-130) mL/min Calculated Osmolal ity (285-295) mOsm/k g Lactic Acid (0.5-2.2) mmol/L Calcium (8.5-10.5) mg/dL Iron 166 H (59-158) ug/dL TIBC 182.87312 mcg/dl % Saturation 90.0 H (20-50) % Unsat Iron Binding < 17 L (112-347) ug/dL Ferritin 2830 H (30-400) ng/mL Total Bilirubin (0.15-1.2) mg/dL AST (0-40) U/L ALT (0-41) U/L Alkaline Phosphata se (40-130) IU/L Ammonia (16-60) umol/L Creatine Kinase (39-308) U/L Troponin T Baselin e (0-15) ng/L Troponin T 120 Min sun'aq (0-15) ng/L Delta Troponin T (0-10) ABS# C-Reactive Protein (0.0-4.9) mg/L NT-Pro-B Natriuret Pep (0-125) pg/mL Total Protein (6.6-8.7) g/dL Albumin (3.5-5.2) g/dL Globulin (1.3-4.6) g/dL Vitamin B12 788 (232-1245) pg/mL Folate (4.5-32.2) ng/mL Procalcitonin (0-0.5) ng/mL TSH 2.34 (0.27-4.20) uIU/ mL Urine Color (Yellow) Urine Appearance (CLEAR) Urine pH (5-7) Ur Specific Gravit y (1.005-1.030) Urine Protein (Negative) Urine Glucose (UA) (Normal) Urine Ketones (Negative) Urine Blood (Negative) Urine Nitrate (Negative) Urine Bilirubin (Negative) Urine Urobilinogen (Negative) mg/dL Ur Leukocyte Maribel ase (Negative) Urine RBC (0-2) /hpf Urine WBC (0-5) /hpf Ur Squamous Epith Cells (0-5) /hpf Amorphous Sediment Urine Bacteria (NONE) /hpf Hyaline Casts /lpf Urine Mucus /hpf Ur Random Sodium mmol/L Ur Random Potassiu m mmol/L Ur Random Chloride mmol/L Urine Opiates Scre en (Negative) ng/mL Ur Barbiturates Sc reen (Negative) ng/mL Ur Phencyclidine S crn (Negative) ng/mL Ur Amphetamines Sc reen (Negative) ng/mL U Benzodiazepines Scrn (Negative) ng/mL Urine Cocaine Scre en (Negative) ng/mL U Marijuana (THC) Screen (Negative) ng/mL Ethyl Alcohol (0-10) mg/dL 08/28/20 08/28/20 08/28/20 Range/Units 11:00 12:19 12:19 WBC (4.0-10.0) 10^3/ uL RBC (4.1-5.3) 10^6/u L Hgb (11.7-16.6) g/dL Hct (42.0-52.0) % MCV (80-94) fL MCH (28.0-34.0) pg MCHC (30.0-36.0) g/dL RDW (12.1-15.1) % Plt Count (130-400) 10^3/c mm MPV (7.4-10.4) fL Neut % (Auto) % Lymph % (Auto) % [place] % (Auto) % Eos % (Auto) % Baso % (Auto) % Neut # (Auto) (1.8-7.7) 10^3/u L Lymph # (Auto) (0.8-4.8) 10^3/u L [place] # (Auto) (0.2-0.9) 10^3/u L Eos # (Auto) (0.0-0.8) 10^3/u L Baso # (Auto) (0.0-0.1) 10^3/u L Nucleated RBC % (a uto) % Nucleated RBCs # /100WBC PT (12.1-14.9) SECO NDS INR (0.8-1.2) Specimen Type Sample Site ABG pH (7.35-7.45) ABG pCO2 (35-45) mmHg ABG pO2 (80.0-100.0) mmH g ABG HCO3 (22-26) mmol/L ABG O2 Saturation ABG Base Excess (-2.0-2.0) mmol/ L Vasyl Test A-a O2 Gradient (5-10) mmHg Hematocrit (42-52) % Hgb O2 Saturation (95-100) % Carboxyhemoglobin (0.4-20.1) %THgb Methemoglobin (0.4-1.5) % Total Hemoglobin (14-18) g/dL Sodium (131-143) mmol/L Potassium (3.5-5.0) mmol/L Glucose (70-115) mg/dL Ionized Calcium (1.1-1.4) mmol/L O2 Delivery Device FiO2 % Archives Technician ID Chloride (98-107) mmol/L Carbon Dioxide (22-29) mmol/L Anion Gap (5-19) BUN (6-20) mg/dL Creatinine (0.7-1.2) mg/dL GFR Calculation (90-130) mL/min Calculated Osmolal ity (285-295) mOsm/k g Lactic Acid (0.5-2.2) mmol/L Calcium (8.5-10.5) mg/dL Iron (59-158) ug/dL TIBC mcg/dl % Saturation (20-50) % Unsat Iron Binding (112-347) ug/dL Ferritin (30-400) ng/mL Total Bilirubin (0.15-1.2) mg/dL AST (0-40) U/L ALT (0-41) U/L Alkaline Phosphata se (40-130) IU/L Ammonia (16-60) umol/L Creatine Kinase (39-308) U/L Troponin T Baselin e (0-15) ng/L Troponin T 120 Min sun'aq (0-15) ng/L Delta Troponin T (0-10) ABS# C-Reactive Protein (0.0-4.9) mg/L NT-Pro-B Natriuret Pep (0-125) pg/mL Total Protein (6.6-8.7) g/dL Albumin (3.5-5.2) g/dL Globulin (1.3-4.6) g/dL Vitamin B12 (232-1245) pg/mL Folate 2.0 L (4.5-32.2) ng/mL Procalcitonin (0-0.5) ng/mL TSH (0.27-4.20) uIU/ mL Urine Color Dark yellow (Yellow) Urine Appearance Hazy A (CLEAR) Urine pH 6 (5-7) Ur Specific Gravit y 1.010 (1.005-1.030) Urine Protein Trace (Negative) Urine Glucose (UA) Norm (Normal) Urine Ketones 1+ H (Negative) Urine Blood Neg (Negative) Urine Nitrate Negative (Negative) Urine Bilirubin 1+ H (Negative) Urine Urobilinogen 4 H (Negative) mg/dL Ur Leukocyte Maribel ase Negative (Negative) Urine RBC 0-4 H (0-2) /hpf Urine WBC None (0-5) /hpf Ur Squamous Epith Cells 0-4 H (0-5) /hpf Amorphous Sediment Not Reportable Urine Bacteria Trace (NONE) /hpf Hyaline Casts 25-40 H /lpf Urine Mucus 2+ /hpf Ur Random Sodium mmol/L Ur Random Potassiu m mmol/L Ur Random Chloride mmol/L Urine Opiates Scre en Negative (Negative) ng/mL Ur Barbiturates Sc reen Negative (Negative) ng/mL Ur Phencyclidine S crn Negative (Negative) ng/mL Ur Amphetamines Sc reen Negative (Negative) ng/mL U Benzodiazepines Scrn Negative (Negative) ng/mL Urine Cocaine Scre en Negative (Negative) ng/mL U Marijuana (THC) Screen Negative (Negative) ng/mL Ethyl Alcohol (0-10) mg/dL 08/28/20 08/28/20 Range/Units 12:19 13:00 WBC (4.0-10.0) 10^3/ uL RBC (4.1-5.3) 10^6/u L Hgb (11.7-16.6) g/dL Hct (42.0-52.0) % MCV (80-94) fL MCH (28.0-34.0) pg MCHC (30.0-36.0) g/dL RDW (12.1-15.1) % Plt Count (130-400) 10^3/c mm MPV (7.4-10.4) fL Neut % (Auto) % Lymph % (Auto) % [place] % (Auto) % Eos % (Auto) % Baso % (Auto) % Neut # (Auto) (1.8-7.7) 10^3/u L Lymph # (Auto) (0.8-4.8) 10^3/u L [place] # (Auto) (0.2-0.9) 10^3/u L Eos # (Auto) (0.0-0.8) 10^3/u L Baso # (Auto) (0.0-0.1) 10^3/u L Nucleated RBC % (a uto) % Nucleated RBCs # /100WBC PT (12.1-14.9) SECO NDS INR (0.8-1.2) Specimen Type Sample Site ABG pH (7.35-7.45) ABG pCO2 (35-45) mmHg ABG pO2 (80.0-100.0) mmH g ABG HCO3 (22-26) mmol/L ABG O2 Saturation ABG Base Excess (-2.0-2.0) mmol/ L Vasyl Test A-a O2 Gradient (5-10) mmHg Hematocrit (42-52) % Hgb O2 Saturation (95-100) % Carboxyhemoglobin (0.4-20.1) %THgb Methemoglobin (0.4-1.5) % Total Hemoglobin (14-18) g/dL Sodium (131-143) mmol/L Potassium (3.5-5.0) mmol/L Glucose (70-115) mg/dL Ionized Calcium (1.1-1.4) mmol/L O2 Delivery Device FiO2 % Archives Technician ID Chloride (98-107) mmol/L Carbon Dioxide (22-29) mmol/L Anion Gap (5-19) BUN (6-20) mg/dL Creatinine (0.7-1.2) mg/dL GFR Calculation (90-130) mL/min Calculated Osmolal ity (285-295) mOsm/k g Lactic Acid (0.5-2.2) mmol/L Calcium (8.5-10.5) mg/dL Iron (59-158) ug/dL TIBC mcg/dl % Saturation (20-50) % Unsat Iron Binding (112-347) ug/dL Ferritin (30-400) ng/mL Total Bilirubin (0.15-1.2) mg/dL AST (0-40) U/L ALT (0-41) U/L Alkaline Phosphata se (40-130) IU/L Ammonia (16-60) umol/L Creatine Kinase (39-308) U/L Troponin T Baselin e (0-15) ng/L Troponin T 120 Min sun'aq 17.79 H (0-15) ng/L Delta Troponin T -3.21 L (0-10) ABS# C-Reactive Protein (0.0-4.9) mg/L NT-Pro-B Natriuret Pep (0-125) pg/mL Total Protein (6.6-8.7) g/dL Albumin (3.5-5.2) g/dL Globulin (1.3-4.6) g/dL Vitamin B12 (232-1245) pg/mL Folate (4.5-32.2) ng/mL Procalcitonin (0-0.5) ng/mL TSH (0.27-4.20) uIU/ mL Urine Color (Yellow) Urine Appearance (CLEAR) Urine pH (5-7) Ur Specific Gravit y (1.005-1.030) Urine Protein (Negative) Urine Glucose (UA) (Normal) Urine Ketones (Negative) Urine Blood (Negative) Urine Nitrate (Negative) Urine Bilirubin (Negative) Urine Urobilinogen (Negative) mg/dL Ur Leukocyte Maribel ase (Negative) Urine RBC (0-2) /hpf Urine WBC (0-5) /hpf Ur Squamous Epith Cells (0-5) /hpf Amorphous Sediment Urine Bacteria (NONE) /hpf Hyaline Casts /lpf Urine Mucus /hpf Ur Random Sodium 19 mmol/L Ur Random Potassiu m 33 mmol/L Ur Random Chloride 30 mmol/L Urine Opiates Scre en (Negative) ng/mL Ur Barbiturates Sc reen (Negative) ng/mL Ur Phencyclidine S crn (Negative) ng/mL Ur Amphetamines Sc reen (Negative) ng/mL U Benzodiazepines Scrn (Negative) ng/mL Urine Cocaine Scre en (Negative) ng/mL U Marijuana (THC) Screen (Negative) ng/mL Ethyl Alcohol (0-10) mg/dL Discharge Plan Discharge Patient Disposition: Admitted As Inpatient Admit Provider: Aramis Canas Clinical Impression: Acute alcohol intoxication, Decubitus ulcer of back, stage 2, Sepsis Condition: Stable Coding Level of Care Code ED Securities Adviser for Chg Fwd Exam Detailed
[2020-08-28] MEDS: sodium chloride 0.9% 1,000 ML 250 ML IV (10:30)
[2020-08-28 10:53] LABS: ABG PCO2 34.1 mmHg (35-45); ABG PH Result 7.47 (7.35-7.45); Alveolar-Arterial Oxygen Gradi 5.6 mmHg (5-10); Arterial Blood Gas Hematocrit 27.2 % (42-52); Base Excess ABG 1.2 mmol/L (-2.0-2.0); Blood Gas Allen Test Pos; Blood Gas Operator Identificat MONRO; Blood Gas Sample Site Radial, right; Blood Gas Sample Type Arterial; Carboxyhemoglobin 2.4 %THgb (0.4-20.1); HCO3 ABG 24.8 mmol/L (22-26); HGB O2 Sat 86.6 % (95-100); Ionized Calcium Level - ABG 1.1 mmol/L (1.1-1.4); Methemoglobin 0.8 % (0.4-1.5); Oxygen Device ROOM AIR; Oxygen Saturation ABG 89.4; PO2 ABG 64.2 mmHg (80.0-100.0); Total Hemoglobin 8.9 g/dL (14-18)
[2020-08-28 11:02] LABS: Basophils % 0.2 %; Hematocrit 28.7 % (42.0-52.0); Hemoglobin 9.8 g/dL (11.7-16.6); Lymphocytes # 0.7 10^3/uL (0.8-4.8); Lymphocytes % 8.2 %; Mean Corpuscular HGB Conc 34.1 g/dL (30.0-36.0); Mean Corpuscular Volume 102.5 fL (80-94); Mean Platelet Volume 9.1 fL (7.4-10.4); Monocytes # 0.7 10^3/uL (0.2-0.9); Monocytes % 7.5 %; Neutrophils # 7.23 10^3/uL (1.8-7.7); Neutrophils % 83.4 %; Nucleated Red Blood Cells % 0.2 %; Platelet Count 310 10^3/cmm (130-400); Red Cell Distribution Width 17.2 % (12.1-15.1); White Blood Count 8.7 10^3/uL (4.0-10.0)
[2020-08-28 11:24] LABS: Ammonia 19 umol/L (16-60); Lactic Sepsis W/Reflex 3.8 mmol/L (0.5-2.2)
[2020-08-28] MEDS: iohexol 300 mg/mL 100 mL Btl IV ×2 (11:26→22:03)
[2020-08-28 11:28] LABS: Troponin(5th) Baseline 21 ng/L (0-15)
[2020-08-28 11:36] LABS: NT Pro B Type Natriuretic Pept 155 pg/mL (0-125); Procalcitonin 0.54 ng/mL (0-0.5)
[2020-08-28 11:47] LABS: Alanine Aminotransferase 45 U/L (0-41); Albumin Level 3.6 g/dL (3.5-5.2); Alkaline Phosphatase 133 IU/L (40-130); Anion Gap 25.2 (5-19); Aspartate Amino Transferase 152 U/L (0-40); Blood Urea Nitrogen 15 mg/dL (6-20); C Reactive Protein 10.1 mg/L (0.0-4.9); Calcium 7.9 mg/dL (8.5-10.5); Carbon Dioxide 22 mmol/L (22-29); Chloride 89 mmol/L (98-107); Creatine Phosphokinase 190 U/L (39-308); Glomerular Filtration Rate 171.4 mL/min (90-130); Glucose 123 mg/dL (65-115); Osmolality Calculated 278 mOsm/kg (285-295); Potassium 3.2 mmol/L (3.5-5.1); Sodium 133 mmol/L (136-145); Total Bilirubin 1.1 mg/dL (0.15-1.2); Total Protein 6.6 g/dL (6.6-8.7)
[2020-08-28 11:53] LABS: Alcohol Level 314 mg/dL (0-10)
[2020-08-28] MEDS: vancomycin 1,000 MG in sodium chloride 0.9% 250 ML 250 MG IV (11:54)
--- NOTE | 2020-08-28 12:01 | US_ITS ---
WS: [id number] ULTRASOUND ABDOMEN LIMITED CLINICAL INFORMATION: RUQ pain, elevated LFTs COMPARISON: None. FINDINGS: Liver Size: Enlarged Craniocaudal length: 17.4 cm. Echogenicity: Dense Surface nodularity: None. Mass (size and location): None. Bile ducts Intrahepatic ducts: Normal. Common bile duct diameter: 0.3 cm. Gallbladder Tiny gallstones or sludge in the gallbladder Gallbladder wall thickening: None. Pericholecystic fluid: None. Sonographic Arias sign: Absent. Pancreas Normal as visualized. Right kidney: Normal. Hydronephrosis: None. Size: 11.1 cm x 5.6 cm x 5.2 cm. Abdominal aorta and IVC Visualized portions are normal. Ascites: None. US/US gall bladder [id number] IMPRESSION: 1. Hepatomegaly with diffuse fatty infiltration. 2. Tiny gallstones or sludge in the gallbladder. No gallbladder wall thickenin g or pericholecystic fluid. 3. No hydronephrosis in right kidney.
--- NOTE | 2020-08-28 12:17 | ECG_ITS ---
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 Measurements Intervals [place] Rate: 109 P: 81 NE: 179 QRS: 81 QRSD: 79 T: 74 QT: 348 QTc: 469 Interpretive Statements SINUS TACHYCARDIA NONSPECIFIC T-WAVE ABNORMALITY Compared to ECG 04/09/2019 08:29:54 T-wave abnormality now present Sinus rhythm no longer present Electronically Signed On 08-29-2020 7:02:51 CDT by Yoko Restrepo M.D. [email or web address]
[2020-08-28 12:49] LABS: Reflex Lactate Order REFLEX LACTIC ORDERD
[2020-08-28] MEDS: ondansetron 2 mg/ML SDV 2 mL 4 MG IVP (13:00)
[2020-08-28 13:18] LABS: Add Urine Microscopic? YES; Bilirubin Urine 1+ (Negative); Blood Urine Neg (Negative); Glucose Urine UA Norm (Normal); Ketones Urine 1+ (Negative); Leukocyte Esterase Urine Negative (Negative); Nitrate Urine Negative (Negative); Protein Urine Trace (Negative); Urine Appearance Hazy (CLEAR); Urine Color Dark Yellow (Yellow); Urobilinogen Urine 4 mg/dL (Negative); pH Urine 6 (5-7)
[2020-08-28 13:23] LABS: Bacteria Urine TRACE /hpf; Hyaline Casts Urine 25-40 /lpf; Mucus Urine 2+ /hpf; RBC Urine 0-4 /hpf (0-2); Squamous Epithelial Cell Urine 0-4 /hpf (0-5)
[2020-08-28 13:24] LABS: Add Urine Culture? No
[2020-08-28] MEDS: morphine 4 mg/mL SDV 1 mL 2 MG IVP (14:14)
[2020-08-28] MEDS: metroNIDAZOLE IV 500 MG/100 ML PREMIX 100 MG IV (14:16)
[2020-08-28] MEDS: folic acid 1 MG, multivitamin inj 10 ML, thiamine 100 MG in sodium chloride 0.9% 1,000 ML 252.8 MG IV (14:17)
[2020-08-28 14:34] LABS: Lactic Acid level (Lactate) 2.2 mmol/L (0.5-2.2)
[2020-08-28 14:34] LABS: Troponin 5 2HR 17.79 ng/L (0-15)
[2020-08-28 14:39] LABS: Troponin 5 2HR Delta -3.21 ABS# (0-10)
[2020-08-28 14:57] LABS: Amphetamines Screen Urine Negative (Negative); Barbiturates Screen Urine Negative (Negative); Benzodiazepines Screen Urine Negative (Negative); Cocaine Screen Urine Negative (Negative); Opiate Screen Urine Negative (Negative); PCP Screen Urine Negative (Negative); THC Screen Urine Negative (Negative)
[2020-08-28 15:11] LABS: Thyroid Stimulating Hormone 2.34 uIU/mL (0.27-4.20)
--- NOTE | 2020-08-28 15:20 | PM.HP ---
Providers/Chief Complaint Admitting Physician: Aramis Canas MD Chief Complaint: HURTING ALL OVER/ ETOH/ GENERALIZED WKNS History of Present Illness Vasyl Reis is a 59 year old male with past medical history of alcoholism, COPD, chronic pain who presented to the ER today via EMS after a friend check documentation found him to be living in his home covered in his feces. When patient presented to the ER he was cleaned up and after that patient is a little more awake and gave history of drinking half a pint of whiskey today earlier in the morning. He stated he is drinking alcohol because of significant pain. He has been having diarrhea for the patient for last couple of weeks. He is not really sure the color of bowel movements or any blood in the bowel movements. Denies any nausea or vomiting. Complaining of generalized body pain. Not able to localize the pain. In the ER on examination he was found to have a small sacral decubitus ulcer. He has been afebrile, saturating well on 2 L oxygen supplementation. Blood pressure usually maintained with maps over 65. Blood work in the ER showed white count of 8.7, hemoglobin of 9.8, MCV of 102, ABG showing a pH of 7.4, CO2 34.1, PO2 of 64.2, chemistries, showing a sodium of 133, potassium of 3.2, anion gap of 25, creatinine of 0.5, lactic acid of 3.8, calcium 7.9, AST/ALT of 152/45 with alkaline phosphatase of 133, procalcitonin 0.5, UA negative for signs of infection, Ethyl alcohol levels of 314. Pelvis CT scan showed small amount of subcutaneous edema overlying distal sacrum without any abscess or rectal fistula, chest x-ray negative for any acute consolidation, gallbladder ultrasound showing hepatomegaly with diffuse fatty infiltration with tiny gallstones with sludge in the gallbladder. Review of Systems General: Reports: 10 or more systems reviewed and unremarkable except in HPI and below Const: Denies: fever(s), chills, body aches, change in appetite, change in weight, malaise, night sweats, diaphoresis, change in sleep pattern, daytime sleepiness or snoring Eyes: Denies: change in vision, blurry vision, photophobia, eye discomfort or eye discharge ENMT: Denies: throat pain, enlarged tonsils, hoarseness, mouth pain, oral sores, dry mouth, tinnitus, nasal congestion or post nasal drip Card: Denies: chest pain, palpitations, irregular heart rhythm, edema, swelling of feet/ankles, lightheadedness, syncope, pre-syncope, dyspnea on exertion, orthopnea, leg pain with exertion or acrocyanosis Resp: Denies: dyspnea, productive cough, non-productive cough, wheezing, stridor, pain on inspiration, change in phlegm color, hemoptysis or chest congestion GI: Denies: abdominal pain, nausea, vomiting, hematemesis, coffee ground emesis, dysphagia, heartburn, diarrhea, constipation, bloating, GI cramping, change in bowel habits, pain on defecation, hematochezia or melena : Denies: flank pain, difficulty urinating, dysuria, urinary frequency, urinary urgency, urinary hesitancy, urinary dribbling, difficulty starting urination, change in urine stream, nocturia or hematuria Musc: Denies: neck pain, back pain, extremity pain, joint pain, joint swelling, joint redness, joint stiffness or limited range of motion Neuro: Denies: headache(s), numbness in extremities, weakness in extremities, sensory changes, lack of coordination, difficulty walking, frequent falls, dizziness, vertigo, confusion, Slurred speech present, difficulty communicating thoughts or seizure-like activity Psych: Denies: anxiety, depression, mood swings, panic attacks, hopelessness or irritability Endo: Denies: polyuria, polydipsia, tired all the time, cold intolerance, excessive sweating, flushing or heat intolerance Gabe/Lymph: Denies: easy bruising or easy bleeding All/Imm: Denies: tongue swelling, facial swelling or acute wheezing Medications/Allergies Home Medications Medication Instructions Recorded Confirmed Last Taken Type No Known Home Medications 08/28/20 08/28/20 Unknown History Allergies Allergy/AdvReac Type Severity Reaction Status Date / Time Penicillins Allergy Unknown Verified 08/28/20 10:31 PFSH Acute PFSH: Medical History Alcohol withdrawal delirium Alcoholism COPD (chronic obstructive pulmonary disease) continue nebulization q4h. Taper steroids to 10mg po qd. Social History (Updated 08/28/20 @ 15:23 by Aramis Canas MD) Smoking and tobacco status: current every day smoker Alcohol intake: current Alcohol intake frequency: 3 or more drinks per day Alcohol type: hard liquor Caregiver/support person: No Lives independently: No Household members: friend(s) Vitals/I&O/Wt Last Vital Signs Temp 98.7 F 08/28/20 14:41 Pulse 109 H 08/28/20 14:41 Resp 18 08/28/20 14:41 BP 102/81 08/28/20 14:41 Pulse Ox 98 08/28/20 14:41 08/28/20 08/28/20 08/28/20 06:59 14:59 22:59 Intake Total 1250 / 1250 Balance 1250 / 1250 Weight last 48 hrs Weight 70.307 kg Physical Exam Narrative: EXAM NARRATIVE: General: No acute distress, AO x3, drowsy, smelling of alcohol HEENT: PERRLA, pupils bilaterally equal and reactive Chest: Normal vesicular breath sounds, no added sounds, equal good air entry bilaterally CVS: S1-S2 regular, no murmurs, no tachycardia, no gallops, no rubs Abdomen: Soft, generalized abdominal pain, no guarding, no organomegaly, bowel sounds present but sluggish Neuro: No focal deficits, no facial deformity, AO x3, power 5/5 in all limbs Urinary Catheter Management^: Orourke: Cath Placed During This Visit: yes Urinary Catheter Date of Insertion: 08/28/20 Urinary Catheter Time of Insertion: 12:11 Data : 08/28/20 11:00 08/28/20 11:00 Micro: Microbiology 08/28/20 10:47 Blood Culture - Preliminary Blood SPECIMEN COLLECTED 08/28/20 10:33 Blood Culture - Preliminary Blood SPECIMEN COLLECTED A&P Assessment and plan (1) AMS (altered mental status): Status: Acute (2) Acute alcohol intoxication: Status: Acute Qualifiers: Complication of substance-induced condition: uncomplicated Qualified Code(s): F10.920 - Alcohol use, unspecified with intoxication, uncomplicated (3) Diarrhea: Status: Acute (4) Anemia: Status: Acute (5) Hypoxia: Status: Acute Additional A&P Information Altered mental status: Secondary to acute alcohol intoxication. Check urine drug screen. Banana bag. After that normal saline with 20 mg potassium at 75 cc/h. Folic acid oral thiamine. WA protocol. Monitor for alcohol withdrawal. Fall precautions. Recurrent orientation. Diarrhea: No signs of sepsis for now. Patient has been afebrile, no tachycardia with blood pressure within normal limits. Patient does not have any leukocytosis. Patient having generalized abdominal pain. Check CT abdomen pelvis. Stool studies. For now start patient on Zosyn which will also cover for possible aspiration pneumonia. Hypoxia: Could be secondary to aspiration as patient was found in alcohol intoxication. Zosyn as above will also cover for any new pneumonia. We will try to de-escalate antibiotics as soon as possible. Blood culture, sputum culture. Anemia: Hemoglobin 9.8. Seems to be lower than his baseline a year ago. Stool studies. Occult blood. Protonix 40 twice daily orally for now. We will continue to monitor hemoglobin daily for now. Check vitamin B12, folate levels. Check iron panel, ferritin, HbA1c, TSH, lipid panel. Full code. Regular diet. CIWA protocol. Lovenox for DVT prophylaxis. Attestations Medical Necessity Statement*: Admission for more than 2 midnights for altered mental status secondary to alcohol intoxication, hypoxia, anemia Time Spent in Patient Care: Greater than 35 minutes (>than 50% of time spent in counselling and/or direct pt care on unit). Coding Level of Care Code Acute Tester [employer] for [facility] [place] Diagnoses AMS (altered mental status) R41.82 Acute alcohol intoxication F10.920 Complication of substance-induced condition: uncomplicated Diarrhea R19.7 Anemia D64.9 Hypoxia R09.02
--- NOTE | 2020-08-28 15:47 | CTR_ITS ---
PROCEDURE INFORMATION: Exam: CT Abdomen And Pelvis With Contrast Exam date and time: 08/28/2020 9:27 PM Age: 59 years old Clinical indication: Abdominal pain TECHNIQUE: Imaging protocol: Computed tomography of the abdomen and pelvis with contrast. Radiation optimization: All CT scans at this facility use at least one of these dose optimization techniques: automated exposure control; mA and/or kV adjustment per patient size (includes targeted exams where dose is matched to clinical indication); or iterative reconstruction. Contrast material: OMNI 300; Contrast volume: 95 ml; Contrast route: INTRAVENOUS (IV); COMPARISON: CT pelvis w con* [id number] 08/28/2020 11:04 AM RADIATION DOSE METRICS: Total DLP (mGy-cm): 714.84 FINDINGS: Lungs: There is a patchy focus of consolidation in the left lower lobe. Liver: There is fatty infiltration of the liver. Gallbladder and bile ducts: No wall thickening, pericholecystic fluid or stones. Pancreas: Normal. No ductal dilation. Spleen: Normal. No splenomegaly. Adrenal glands: Normal. No mass. Kidneys and ureters: 1.3 cm right interpolar region renal cyst. Stomach and bowel: Large formed stool in the rectum. Appendix: No evidence of appendicitis. Intraperitoneal space: Tiny amount of free fluid in the pelvis. Vasculature: Unremarkable. No abdominal aortic aneurysm. Lymph nodes: Unremarkable. No enlarged lymph nodes. Urinary bladder: Unremarkable as visualized. Reproductive: Unremarkable as visualized. Bones/joints: Unremarkable. No acute fracture. Soft tissues: Fat containing umbilical hernia. CT/CT abdomen pelvis w con* [id number] IMPRESSION: 1. Patchy consolidation in the left lower lobe concerning for pneumonia. 2. Fatty infiltration of the liver. 3. Large formed stool in the rectum. 4. Fat containing umbilical hernia. COMMENTS: Consistent with the [employer]'s Incidental Findings Committee white paper (J Am Ronit Radiol 2018): Any incidental renal lesion less than 1 cm or classified as too small to characterize, or any incidental cystic renal lesion characterized as simple-appearing, is likely benign. No follow-up imaging is recommended for these lesions per consensus recommendations based on imaging criteria. Radiation Dose CTDIVOL = (mGy): DLP = 714.84 (mGy-cm)
[2020-08-28 15:58] LABS: INR 0.93 (0.8-1.2)
--- NOTE | 2020-08-28 16:17 | ECG_ITS ---
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 Measurements Intervals [place] Rate: 100 P: 80 IN: 181 QRS: 83 QRSD: 77 T: 89 QT: 356 QTc: 461 Interpretive Statements SINUS TACHYCARDIA NONSPECIFIC ST & T-WAVE ABNORMALITY ABNORMAL RHYTHM ECG Compared to ECG 08/28/2020 12:55:06 No significant changes Electronically Signed On 08-29-2020 7:01:12 CDT by Yoko Restrepo M.D. [id number]
[2020-08-28 16:23] LABS: Potassium, Radom Urine 33 mmol/L; Urine Random Chloride 30 mmol/L
[2020-08-28 16:24] LABS: Urine Random Sodium 19 mmol/L
[2020-08-28 16:33] LABS: Iron 166 ug/dL (59-158); Vitamin B12 788 pg/mL (232-1245)
[2020-08-28 16:51] LABS: Ferritin 2830 ng/mL (30-400)
[2020-08-28] MEDS: pantoprazole DR 40 mg Tablet PO (18:05)
[2020-08-28] MEDS: enoxaparin 40 mg/0.4 mL Syringe SUBCUT (18:05)
--- NOTE | 2020-08-28 18:12 | PC.NURSE ---
1615 Attempted to start a second IV to get meds in but I had 2 unsuccessful attempts. Ask coworkers to try. 1715 Patient refused to let nurse try to get an IV since he was talking on the phone at the time. She will try when he's finished on the phone.
--- NOTE | 2020-08-28 18:14 | PC.NURSE ---
1800 Patient is asking for more pain med, but he keeps falling asleep as soon as I finish talking to him, and between admission questions. He fell asleep while talking on the phone. When he is sleeping he snores. SCD's applied.
[2020-08-28 18:24] LABS: Troponin 5 6HR 15.12 ng/L (0-15)
[2020-08-28 18:25] LABS: Troponin 5 6HR Delta -5.88 ng/L (0-12)
[2020-08-28] MEDS: sodium chlor 0.9% + KCl 20 mEq 20 MEQ/1,000 ML BAG 100 MEQ IV (18:35)
[2020-08-28 20:43] LABS: Unsaturated Iron Binding < 17 ug/dL (112-347)
[2020-08-28] MEDS: LORazepam 2 mg Tablet PO (21:34)
[2020-08-29] VITALS (71 sets, daily range): BP systolic 90–123; BP diastolic 58–85; PULSE 67–145; RESP 10–49; TEMP 36.3–37; O2SAT 61–100
[2020-08-29] MEDS: LORazepam 2 mg/mL INJ 1 mL IM ×2 (00:27→21:49)
--- NOTE | 2020-08-29 00:57 | PC.NURSE ---
Patients heart rate was 132 He scored 18 on Ciwa scale gave 2mg ativan IM due to nausea and dry heaves. Patients heart rate is staying at 117-135 called hospitalist. He said to put pt on continuous pulse ox and give additional Ativan dose if heart rate is still high in 30 minutes.
[2020-08-29] MEDS: tamsulosin 0.4 mg Capsule PO ×2 (04:44→21:28)
[2020-08-29 06:05] LABS: Basophils % 0.3 %; Eosinophils % 0.5 %; Hematocrit 21.3 % (42.0-52.0); Hemoglobin 6.8 g/dL (11.7-16.6); Lymphocytes # 0.8 10^3/uL (0.8-4.8); Lymphocytes % 13.6 %; Mean Corpuscular HGB Conc 31.9 g/dL (30.0-36.0); Mean Corpuscular Hemoglobin 34.5 pg (28.0-34.0); Mean Corpuscular Volume 108.1 fL (80-94); Mean Platelet Volume 10.2 fL (7.4-10.4); Monocytes # 0.7 10^3/uL (0.2-0.9); Monocytes % 11.5 %; Neutrophils % 73.4 %; Nucleated Red Blood Cells % 0.3 %; Platelet Count 246 10^3/cmm (130-400); Red Blood Count 1.97 10^6/uL (4.1-5.3); Red Cell Distribution Width 17.6 % (12.1-15.1); White Blood Count 5.7 10^3/uL (4.0-10.0)
[2020-08-29 06:38] LABS: Alanine Aminotransferase 34 U/L (0-41); Albumin Level 2.6 g/dL (3.5-5.2); Alkaline Phosphatase 94 IU/L (40-130); Aspartate Amino Transferase 116 U/L (0-40); Blood Urea Nitrogen 12 mg/dL (6-20); Calcium 6.9 mg/dL (8.5-10.5); Carbon Dioxide 28 mmol/L (22-29); Chloride 97 mmol/L (98-107); Globulin 2.6 g/dL (1.3-4.6); Glomerular Filtration Rate 493.4 mL/min (90-130); Glucose 75 mg/dL (65-115); Osmolality Calculated 280 mOsm/kg (285-295); Sodium 136 mmol/L (136-145); Total Bilirubin 1.1 mg/dL (0.15-1.2); Total Protein 5.2 g/dL (6.6-8.7)
[2020-08-29 06:39] LABS: Magnesium 1.1 mg/dL (1.7-2.3); Phosphorus 3.9 mg/dL (2.5-4.5)
[2020-08-29] MEDS: LORazepam 2 mg Tablet PO (09:35)
[2020-08-29] MEDS: sodium chlor 0.9% + KCl 20 mEq 20 MEQ/1,000 ML BAG 100 MEQ IV ×2 (09:36→18:32)
[2020-08-29] MEDS: pantoprazole DR 40 mg Tablet PO (09:37)
[2020-08-29] MEDS: multivitamin therapeutic Tablet 1 TAB PO (09:37)
[2020-08-29] MEDS: folic acid 1 mg Tablet PO (09:37)
[2020-08-29] MEDS: thiamine 100 mg Tablet PO (09:37)
[2020-08-29] MEDS: ipratropium-albuterol 3 mL Neb INHALATION ×3 (09:50→20:17)
--- NOTE | 2020-08-29 10:50 | CT_ITS ---
WS: [id number] CT CHEST TECHNIQUE: Noncontrast CT of the chest with coronal and sagittal reformatted images. CLINICAL INFORMATION: SOB COMPARISON: CT July 10, 2020 DLP: 577.[address] scans at [facility] use at least one of these dose optimization techniques: automat ed exposure control; mA and/or kV adjustment per patient size (includes targeted exams where dose is matched to clinical indication); or iterative reconstruction. FINDINGS: Moderate chronic emphysematous changes. Bullous formation lung apices. Patchy infiltrates in the left lower lobe with subsegmental atelectasis similar in appearance to previous. Small left pleural effus ion. Patchy infiltrates have improved slightly. Recommend follow-up to resolution. Stable calcified opacity right lower lobe. Subsegmental atelectasis right lower lobe. Aortic calcific ation. Normal caliber thoracic aorta. Coronary calcification. No mediastinal or hilar lymphadenopathy . No axillary lymphadenopathy. Previously described healing/healed rib fractures. Chronic fractures w ith callus formation. Moderate thoracic kyphosis. CT/CT chest wo con [id number] IMPRESSION: 1. Patchy infiltrate in left lower lobe with small left pleural effusion. Patc hy infiltrates in the left lower lobe are similar to previous with slight impro vement. Recommend follow-up to resolution. Findings suspicious for pneumonia. 2. Small left pleural effusion is new from previous. 3. Moderate chronic emphysematous changes. 4. Multiple subacute and chronic rib fractures previously described. 5. No mediastinal or hilar lymphadenopathy.
--- NOTE | 2020-08-29 10:50 | CT_ITS ---
WS: [id number] CT HEAD TECHNIQUE: Noncontrast and contrast-enhanced CT of the head. CLINICAL INFORMATION: seizure COMPARISON: 2 17,019 DLP: 1721.[address] scans at [facility] use at least one of these dose optimization techniques: automat ed exposure control; mA and/or kV adjustment per patient size (includes targeted exams where dose is matched to clinical indication); or iterative reconstruction. FINDINGS: Some images degraded by patient motion. Moderate small vessel changes. Moderate parenchymal volume lo ss. No intracranial hemorrhage or mass effect. No extra axial fluid collections. No abnormal intracranial enhancement. Normal optic chiasm and pituitary infundibulum. Mastoid air jr ls and paranasal sinuses are well aerated. Normal visualized soft tissues. CT/CT head wo/w con [id number] IMPRESSION: 1. No evidence of intracranial hemorrhage or mass effect. 2. Moderate small vessel changes moderate parenchymal volume loss. 3. No abnormal intracranial enhancement. 4. No acute intracranial findings.
--- NOTE | 2020-08-29 10:51 | PC.CHAP ---
Pastoral Care Encounter/Spiritual Assessment Type of Contact [] Declined hand carver visit [] Patient/Family/Request visit [] Outpatient visit [] Follow-up visit [] Physician referral [] Code/Alert [X] Routine visit [] Staff referral [] Actively dying [] Patient sleeping [] Family support [] [] Out of room [] Palliative care [] [] Receiving care in room [] Pre-surgical visit [] Trauma [] Long length of stay [] ICU visit [] Other: Relational/Emotional Strength [] Patient feels connected with others/family/visitors/staff [] Distress [] Loneliness/isolation [] Abandonment Spirituality of Patient [X] Person of Keisha [] Attends Methodist of their Keisha [] Believes in Prayer [] Reads Bible or Spiritism materials [] There are Spiritual issues to be addressed [employer] Interventions [X] Prayer [X] Active listening [] Non-anxious presence [] Spiritual/emotional support [] Crisis/trauma care [] Spiritual counseling [] Bereavement support [] Provided bereavement packet [X] Provided Bible/devotional materials [] Provided toy/stuffed animal, coloring book to patient or family member [] Provided Communion [] Anointing/[place] [] Salvation [X] Completed spiritual assessment [] Other: Impact on Illness or Injury [] Angry [] Fearful [] Anxious [] Often cries [] Exhaustion [] Unable to work [] Unable to attend gnosticism [] Unable to walk/stand [] Unable to read [] Unable to drive [] Unable to eat/drink [] Unable to sleep [] Unable to be with family [] Patient intubated [] Other: Summary PATIENT SHAKING VERY BAD COULD NOT HOLD CUP OF WATER Time spent with patient 15 MIN
[2020-08-29] MEDS: LORazepam 2 mg/mL INJ 1 mL IVP (10:57)
--- NOTE | 2020-08-29 11:00 | PC.NURSE ---
Pt transfer Received pt from Med Surg. Nurse report given at bedside. Pt is on CIWA protocol. Ativan IM given by MS Nurse Jennifer. Pt is on 3L/NC. HR is in the 130's. BP 110/63. Sat 97%. Orourke is in place.
[2020-08-29] MEDS: iohexol 300 mg/mL 100 mL Btl IV (11:11)
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
[2020-08-29] MEDS: pantoprazole 40 mg SDV IVP (12:52)
[2020-08-29] MEDS: dexmedetomidine 400 MCG in sodium chloride 0.9% (100 ml) 100 ML IV (13:26)
[2020-08-29] MEDS: sodium chloride 0.9% (100 ml) 100 ML 10 ML (15:10)
--- NOTE | 2020-08-29 17:57 | P.PN_ITS ---
Subjective Subjective: Interval history: Patient seen multiple times during the day. Overnight patient has received 4 mg of Ativan 2 mg p.o., 2 mg IM. He had urinary retention with Orourke was placed. Patient had one episode of seizure activity at around 11 AM this lasted for around 20 seconds and aborted by itself. After that patient was moved to the ICU and was loaded loaded with Keppra. CT head and CT chest were done. While in the ICU he was on oxygen mask oxygen supplementation with 10 L coming down to 6 L) saturation 100% with heart rate ranging from 110 to 120 bpm. He has been on Precedex drip. Vitals/I&O/Wt Last Vital Signs Temp 97.9 F 08/29/20 15:11 Pulse 128 H 08/29/20 15:48 Resp 12 08/29/20 15:11 BP 99/61 08/29/20 15:11 Pulse Ox 100 08/29/20 15:11 08/29/20 08/29/20 08/29/20 06:59 14:59 22:59 Intake Total 1100 / 2450 200 / 200 0 / 200 Output Total 0 / 250 Balance 1100 / 2200 200 / 200 0 / 200 Weight last 48 hrs Weight 70.307 kg Physical Exam Narrative: EXAM NARRATIVE: General: No acute distress, AO x3, Dex drip, arousable HEENT: PERRLA, pupils bilaterally equal and reactive Chest: Normal vesicular breath sounds, coarse crackles present on the lung pierre, more so on the right lower zone, equal good air entry bilaterally CVS: S1-S2 regular, no murmurs, tachycardia, no gallops, no rubs Abdomen: Soft, generalized abdominal pain, no guarding, no organomegaly, bowel sounds present but sluggish Neuro: No focal deficits, no facial deformity, AO x3, power 5/5 in all limbs Urinary Catheter Management^: Orourke: Cath Placed During This Visit: yes, but has since been removed by the nurse Reason for Continuing Indwelling Catheter: Acute Urinary Retention or Obstruction Urinary Catheter Date of Insertion: 08/28/20 Urinary Catheter Time of Insertion: 12:11 Date Urinary Catheter Removed: 08/28/20 Time Urinary Catheter Discontinued: 18:00 Data : 08/29/20 04:45 08/29/20 04:45 Micro: Microbiology 08/28/20 18:30 MRSA Culture - Final Nose 08/28/20 10:47 Blood Culture - Preliminary Blood NEGATIVE TO DATE 08/28/20 10:33 Blood Culture - Preliminary Blood NEGATIVE TO DATE 08/28/20 12:19 Legionella Urinary Antigen - Final Unknown Source A&P Assessment and plan (1) Seizure: Status: Acute (2) AMS (altered mental status): Status: Acute (3) Acute alcohol intoxication: Status: Acute Qualifiers: Complication of substance-induced condition: uncomplicated Qualified Code(s): F10.920 - Alcohol use, unspecified with intoxication, uncomplicated (4) Anemia: Status: Acute (5) Hypoxia: Status: Acute (6) COPD (chronic obstructive pulmonary disease): Status: Acute (7) Diarrhea: Status: Acute (8) Urinary retention: Status: Acute Additional A&P Information Seizure: Most likely alcohol withdrawal seizure. Continue with Keppra 1 g IV every 12. Continue with Ativan as needed as per [facility] protocol. Seizure precautions, fall precautions. Maintain saturation over 90%. Precedex drip. Alcohol intoxication: Continue with normal saline 1 disease per hour. Thiamine, folic acid. Once patient is able to take orally can start patient on Librium 50 every 6 from tomorrow. Will wean off Librium accordingly. Normal saline at 100 cc/h. Anemia: Cannot rule out GI bleed. Iron panel appreciated. Consistent with anemia of chronic disease. Vitamin B12 within normal limits, folate on the lower side. Transfuse 1 unit PRBC. Protonix 40 mg IV twice daily. GI consult for possible endoscopy and colonoscopy. NPO. Hypoxia: Most likely because of aspiration during seizure and alcohol intoxication along with COPD exacerbation. DuoNebs every 6 hour, budesonide twice daily. Solu-Medrol 40 every 12 hourly. Oxygen supplementation keeping saturation over 90%. Diarrhea: No bowel movements since admission. CT abdomen negative for colitis but does show retained stool. Bowel regimen once able. If not we'll do enema tomorrow. Urinary retention: Continue Flomax started last night. Orourke catheterization. Strict input output charting. Full code. NPO. [facility] protocol No therapeutic DVT prophylaxis because of severe anemia. 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
[2020-08-29] MEDS: budesonide 0.5 mg/2 mL Neb INHALATION (20:17)
[2020-08-29 21:11] LABS: Estmated Average Glucose 80; Hemoglobin A1C 4.4 % (4.0-6.0)
[2020-08-30] VITALS (109 sets, daily range): BP systolic 81–126; BP diastolic 53–88; PULSE 58–112; RESP 11–26; TEMP 36.6–37; O2SAT 80–100
[2020-08-30] MEDS: pantoprazole 40 mg SDV IVP ×2 (00:27→11:43)
[2020-08-30] MEDS: ipratropium-albuterol 3 mL Neb INHALATION ×4 (02:34→20:05)
[2020-08-30] MEDS: LORazepam 2 mg Tablet PO (03:13)
[2020-08-30] MEDS: sodium chlor 0.9% + KCl 20 mEq 20 MEQ/1,000 ML BAG 100 MEQ IV ×3 (03:14→19:20)
[2020-08-30] MEDS: dexmedetomidine 400 MCG in sodium chloride 0.9% (100 ml) 100 ML 7.3 MCG IV (05:01)
[2020-08-30 05:09] LABS: Basophils % 0.2 %; Hematocrit 25.2 % (42.0-52.0); Hemoglobin 7.9 g/dL (11.7-16.6); Lymphocytes # 0.5 10^3/uL (0.8-4.8); Lymphocytes % 8.9 %; Mean Corpuscular HGB Conc 31.3 g/dL (30.0-36.0); Mean Corpuscular Hemoglobin 32.4 pg (28.0-34.0); Mean Corpuscular Volume 103.3 fL (80-94); Mean Platelet Volume 9.9 fL (7.4-10.4); Monocytes # 0.5 10^3/uL (0.2-0.9); Monocytes % 9.2 %; Neutrophils # 4.45 10^3/uL (1.8-7.7); Neutrophils % 80.6 %; Nucleated Red Blood Cells % 0.5 %; Platelet Count 219 10^3/cmm (130-400); Red Blood Count 2.44 10^6/uL (4.1-5.3); Red Cell Distribution Width 21.5 % (12.1-15.1); White Blood Count 5.5 10^3/uL (4.0-10.0)
[2020-08-30 05:28] LABS: Alanine Aminotransferase 35 U/L (0-41); Albumin Level 2.3 g/dL (3.5-5.2); Alkaline Phosphatase 78 IU/L (40-130); Anion Gap 15.4 (5-19); Aspartate Amino Transferase 130 U/L (0-40); Blood Urea Nitrogen 6 mg/dL (6-20); Calcium 6.9 mg/dL (8.5-10.5); Carbon Dioxide 25 mmol/L (22-29); Chloride 102 mmol/L (98-107); Globulin 2.6 g/dL (1.3-4.6); Glomerular Filtration Rate 493.4 mL/min (90-130); Glucose 120 mg/dL (65-115); Osmolality Calculated 285 mOsm/kg (285-295); Potassium 4.4 mmol/L (3.5-5.1); Sodium 138 mmol/L (136-145); Total Bilirubin 0.4 mg/dL (0.15-1.2); Total Protein 4.9 g/dL (6.6-8.7)
--- NOTE | 2020-08-30 05:34 | PC.NURSE ---
Shift Summary Patient transfered from [facility] yesterday due to seizures, was started on precidex and keppra, also getting Ativan per CIWA protocol, seems to be tolerating it all fine so far, has a Orourke and great urine out put. He has had over 2L out so far. Patient is alert at times, has some pain, but then falls right back to sleep. Patient is on 5L NC tolerating it fine so far. Patient does not like to be repositioned overly much, having to do everything we can to keep him off his bottom, due to pressure ulcer. Patient states he is barely able to walk around at home, seems like he needs assistance at home.
[2020-08-30] MEDS: budesonide 0.5 mg/2 mL Neb INHALATION ×2 (08:21→20:05)
[2020-08-30] MEDS: thiamine 100 mg Tablet PO (08:45)
[2020-08-30] MEDS: folic acid 1 mg Tablet PO (08:46)
[2020-08-30] MEDS: multivitamin therapeutic Tablet 1 TAB PO (08:46)
[2020-08-30] MEDS: tamsulosin 0.4 mg Capsule PO (08:46)
--- NOTE | 2020-08-30 08:57 | PC.CHAP ---
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 [] Patient/Family/Request visit [] Outpatient visit [] Follow-up visit [] Physician referral [] Code/Alert [x] Routine visit [] Staff referral [] Actively dying [] Patient sleeping [] Family support [] [] Out of room [] Palliative care [] [] Receiving care in room [] Pre-surgical visit [] Trauma [] Long length of stay [x] ICU visit [] Other: Relational/Emotional Strength [] Patient feels connected with others/family/visitors/staff [] Distress [] Loneliness/isolation [] Abandonment Spirituality of Patient [] Person of Keisha [] Attends Synagogue of their Keisha [] Believes in Prayer [] Reads Bible or Baptism materials [] There are Spiritual issues to be addressed Judicial Clerk Interventions [x] Prayer [x] Active listening [x] Non-anxious presence [x] Spiritual/emotional support [] Crisis/trauma care [] Spiritual counseling [] Bereavement support [] Provided bereavement packet [] Provided Bible/devotional materials [] Provided toy/stuffed animal, coloring book to patient or family member [] Provided Communion [] Anointing/[place] [] Salvation [x] Completed spiritual assessment [] Other: Impact on Illness or Injury [] Angry [] Fearful [] Anxious [] Often cries [] Exhaustion [] Unable to work [] Unable to attend anglican [] Unable to walk/stand [] Unable to read [] Unable to drive [] Unable to eat/drink [] Unable to sleep [] Unable to be with family [] Patient intubated [] Other: Summary resting.. requested coffee. staff stated patient couldn't have it... asked to advise patient Time spent with patient 5 min
--- NOTE | 2020-08-30 11:15 | PM.PN ---
Subjective Subjective: Interval history: The patient seems more alert today but he is still slow to answer questions. He continues to say that my whole all was body hurts. He is unaware of any previous diagnoses of peptic ulcer disease. Vitals/I&O/Wt Last Vital Signs Temp 97.9 F 08/30/20 03:45 Pulse 91 08/30/20 08:33 Resp 14 08/30/20 08:19 BP 91/66 08/30/20 04:00 Pulse Ox 99 08/30/20 08:19 08/29/20 08/30/20 08/30/20 22:59 06:59 14:59 Intake Total 1152.583 / 2487.333 1023.73 / 2487.333 863.333 / 863.333 Output Total 1450 / 5 625 / 2075 Balance -297.417 / 412.333 398.73 / 412.333 863.333 / 863.333 Weight last 48 hrs Weight 132 lb Physical Exam Narrative: EXAM NARRATIVE: Abdomen remains soft. Urinary Catheter Management^: Orourke: Cath Placed During This Visit: yes, but has since been removed by the nurse Reason for Continuing Indwelling Catheter: Acute Urinary Retention or Obstruction Urinary Catheter Date of Insertion: 08/28/20 Urinary Catheter Time of Insertion: 12:11 Date Urinary Catheter Removed: 08/28/20 Time Urinary Catheter Discontinued: 18:00 Data : 08/30/20 04:40 08/30/20 04:40 Micro: Microbiology 08/28/20 18:30 MRSA Culture - Final Nose 08/28/20 10:47 Blood Culture - Preliminary Blood NEGATIVE TO DATE 08/28/20 10:33 Blood Culture - Preliminary Blood NEGATIVE TO DATE A&P Assessment and plan (1) Anemia: Hemoglobin improved following transfusion. I discussed an EGD with the patient in detail. Procedural details and risks were gone over. The patient has been n.p.o. He seems to understand and is agreeable to proceeding with an EGD today. Status: Acute (2) Melena: The patient reports black stools for the last 2 months. Status: Acute (3) Alcoholism: Status: Acute Attestations Medical Necessity Statement*: See admitting service's notation. 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 Diagnoses Anemia D64.9 Melena K92.1 Alcoholism F10.20
--- NOTE | 2020-08-30 14:05 | P.PN_ITS ---
Subjective Subjective: Interval history: No acute events overnight. Patient has remained hemodynamically stable. Patient underwent EGD today which showed gastritis, duodenitis without any active source of bleeding. On examination patient is on Precedex drip of 0.5. He complains of pain all over the body, nausea, patient is tremulous, denies any verbal or visual hallucinations. Asking for pain medication and something to eat. We discussed regarding alcohol rehabilitation center and he states he does not think he drink much. Vitals/I&O/Wt Last Vital Signs Temp 97.9 F 08/30/20 03:45 Pulse 91 08/30/20 08:33 Resp 14 08/30/20 08:19 BP 91/66 08/30/20 04:00 Pulse Ox 99 08/30/20 08:19 08/29/20 08/30/20 08/30/20 22:59 06:59 14:59 Intake Total 1152.583 / 1465.687 3949.73 / 2487.333 963.333 / 963.333 Output Total 1450 / 1450 625 / 2075 Balance -297.417 / 13.603 398.73 / 412.333 963.333 / 963.333 Weight last 48 hrs Weight 59.874 kg Physical Exam Narrative: EXAM NARRATIVE: General: No acute distress, AO x3, Precedex drip, arousable HEENT: PERRLA, pupils bilaterally equal and reactive Chest: Normal vesicular breath sounds, coarse crackles present on the lung pierre, more so on the right lower zone, equal good air entry bilaterally CVS: S1-S2 regular, no murmurs, tachycardia, no gallops, no rubs Abdomen: Soft, generalized abdominal pain, no guarding, no organomegaly, bowel sounds present but sluggish Neuro: No focal deficits, no facial deformity, AO x3, power 5/5 in all limbs Urinary Catheter Management^: Orourke: Cath Placed During This Visit: yes, but has since been removed by the nurse Reason for Continuing Indwelling Catheter: Acute Urinary Retention or Obstruction Urinary Catheter Date of Insertion: 08/28/20 Urinary Catheter Time of Insertion: 12:11 Date Urinary Catheter Removed: 08/28/20 Time Urinary Catheter Discontinued: 18:00 Data : 08/30/20 04:40 08/30/20 04:40 Micro: Microbiology 08/28/20 18:30 MRSA Culture - Final Nose 08/28/20 10:47 Blood Culture - Preliminary Blood NEGATIVE TO DATE 08/28/20 10:33 Blood Culture - Preliminary Blood NEGATIVE TO DATE Microbiology 08/28/20 18:30 Nose MRSA Culture - Final 08/28/20 10:47 Blood Blood Culture - Preliminary NEGATIVE TO DATE 08/28/20 10:33 Blood Blood Culture - Preliminary NEGATIVE TO DATE 08/28/20 12:19 Unknown Source Legionella Urinary Antigen - Final A&P Assessment and plan (1) Seizure: Status: Acute (2) AMS (altered mental status): Status: Acute (3) Acute alcohol intoxication: Status: Acute Qualifiers: Complication of substance-induced condition: uncomplicated Qualified Code(s): F10.920 - Alcohol use, unspecified with intoxication, uncomplicated (4) Anemia: Status: Acute (5) Hypoxia: Status: Acute (6) COPD (chronic obstructive pulmonary disease): Status: Acute (7) Diarrhea: Status: Acute (8) Urinary retention: Status: Acute Additional A&P Information Seizure: Most likely alcohol withdrawal seizure. Continue with Keppra 1 g IV every 12. Ativan as needed for seizure activity. Seizure precautions, fall precautions. Maintain saturation over 90%. Precedex drip. Alcohol intoxication: Normal saline at 100 cc/h. Thiamine, folic acid. None continue Precedex drip. Start patient on Librium 25 mg every 6 hours. For now stop CIWA protocol Ativan. If needed can uptitrate Precedex. Anemia: Post EGD. No active source of bleeding. Post 1 unit PRBC transfusion. Hemoglobin 7.9 today. Repeat hemoglobin in evening. Constipation: Milk of magnesia once. Lactulose 30 mg 3 times daily till the time patient has good bowel movements. Protonix 40 mg twice daily. Clear liquid diet Appreciate surgical recommendations. Hypoxia: Most likely because of aspiration during seizure and alcohol intoxication along with COPD exacerbation. DuoNebs every 6 hour, budesonide twice daily. Continue with Solu-Medrol 40 every 12 hourly. Will wean off tomorrow. Oxygen supplementation keeping saturation over 90%. Urinary retention: Continue Flomax started last night. Orourke catheterization. Strict input output charting. Full code. Clear liquid diet No therapeutic DVT prophylaxis because of severe anemia. 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
[2020-08-30] MEDS: lactulose oral liq 20 gm/30 mL UDC 30 GM PO ×2 (14:35→20:57)
[2020-08-30] MEDS: magnesium hydroxide 30 mL UDC 15 ML PO (14:36)
[2020-08-30] MEDS: chlordiazePOXIDE 25 mg Capsule PO ×2 (15:15→20:58)
--- NOTE | 2020-08-30 16:42 | PC.RESP ---
SMOKING CESSATION AND PULMONARY REHAB INFORMATION SENT TO PATIENT.
[2020-08-30 18:18] LABS: Hemoglobin 8.3 g/dL (11.7-16.6)
[2020-08-30] MEDS: morphine 4 mg/mL SDV 1 mL 1 MG IVP (20:58)
--- NOTE | 2020-08-30 21:14 | PC.NURSE ---
O2 sat at 2100 patient O2 sat dropped to 79% with good waveform. Breathing remained even and non-labored. Pt did express feeling some shortness of breath at this time. Placed on 3L oxymask at this time. O2 sat remained 95%. After few minutes pt was non-compliant and took oxygen off. O2 sat now 92% with no signs of breathing difficulty. Will continue to monitor.
--- NOTE | 2020-08-30 21:17 | PC.NURSE ---
Repositioned Nurse provided education on repositioning and turn schedule to assist with healing of wound to sacrum, reinforcement needed. Pt reports of pain to sacrum, will not allow nurse to turn him at this time. Pt remains slightly turned to right side. Will continue to provide education and redirection.
[2020-08-30] MEDS: dexmedetomidine 400 MCG in sodium chloride 0.9% (100 ml) 100 ML 9.1 MCG IV (23:19)
[2020-08-31] VITALS (37 sets, daily range): BP systolic 99–155; BP diastolic 66–103; PULSE 69–119; RESP 13–23; TEMP 36.5–37.1; O2SAT 84–99; BMI 18.3
[2020-08-31] MEDS: pantoprazole 40 mg SDV IVP ×3 (00:02→23:43)
[2020-08-31] MEDS: ipratropium-albuterol 3 mL Neb INHALATION ×4 (02:47→20:19)
[2020-08-31] MEDS: morphine 4 mg/mL SDV 1 mL 1 MG IVP (03:03)
[2020-08-31 04:56] LABS: Basophils % 0.1 %; Eosinophils % 0.2 %; Hemoglobin 7.6 g/dL (11.7-16.6); Lymphocytes % 11.8 %; Mean Corpuscular HGB Conc 31.7 g/dL (30.0-36.0); Mean Corpuscular Hemoglobin 32.9 pg (28.0-34.0); Mean Corpuscular Volume 103.9 fL (80-94); Mean Platelet Volume 9.6 fL (7.4-10.4); Monocytes # 0.8 10^3/uL (0.2-0.9); Monocytes % 8.8 %; Neutrophils # 6.59 10^3/uL (1.8-7.7); Neutrophils % 77.1 %; Nucleated Red Blood Cells % 0.2 %; Platelet Count 255 10^3/cmm (130-400); Red Blood Count 2.31 10^6/uL (4.1-5.3); Red Cell Distribution Width 21.3 % (12.1-15.1); White Blood Count 8.6 10^3/uL (4.0-10.0)
[2020-08-31 05:14] LABS: Alanine Aminotransferase 32 U/L (0-41); Alkaline Phosphatase 68 IU/L (40-130); Anion Gap 12.3 (5-19); Aspartate Amino Transferase 95 U/L (0-40); Blood Urea Nitrogen 4 mg/dL (6-20); Calcium 7.1 mg/dL (8.5-10.5); Carbon Dioxide 25 mmol/L (22-29); Chloride 105 mmol/L (98-107); Globulin 2.1 g/dL (1.3-4.6); Glomerular Filtration Rate 493.4 mL/min (90-130); Glucose 112 mg/dL (65-115); Osmolality Calculated 286 mOsm/kg (285-295); Potassium 3.3 mmol/L (3.5-5.1); Sodium 139 mmol/L (136-145); Total Bilirubin 0.5 mg/dL (0.15-1.2); Total Protein 5.1 g/dL (6.6-8.7)
[2020-08-31] MEDS: sodium chlor 0.9% + KCl 20 mEq 20 MEQ/1,000 ML BAG 100 MEQ IV ×2 (05:33→15:31)
[2020-08-31] MEDS: lactulose oral liq 20 gm/30 mL UDC 30 GM PO (08:04)
[2020-08-31] MEDS: multivitamin therapeutic Tablet 1 TAB PO (08:05)
[2020-08-31] MEDS: budesonide 0.5 mg/2 mL Neb INHALATION ×2 (08:05→20:20)
[2020-08-31] MEDS: thiamine 100 mg Tablet PO (08:05)
[2020-08-31] MEDS: tamsulosin 0.4 mg Capsule PO (08:05)
[2020-08-31] MEDS: folic acid 1 mg Tablet PO (08:05)
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
[2020-08-31] MEDS: chlordiazePOXIDE 25 mg Capsule 50 MG PO ×3 (09:29→20:03)
[2020-08-31] MEDS: dexmedetomidine 400 MCG in sodium chloride 0.9% (100 ml) 100 ML 9.1 MCG IV (10:59)
[2020-08-31] MEDS: levETIRAcetam 500 mg Tablet 1000 MG PO (17:34)
[2020-08-31] MEDS: TRAMadol 50 mg Tablet PO (20:04)
[2020-09-01] VITALS (32 sets, daily range): BP systolic 76–119; BP diastolic 53–85; PULSE 86–144; RESP 16–27; TEMP 36.8–37.1; O2SAT 88–98
[2020-09-01] MEDS: ipratropium-albuterol 3 mL Neb INHALATION ×3 (02:09→20:37)
[2020-09-01] MEDS: sodium chlor 0.9% + KCl 20 mEq 20 MEQ/1,000 ML BAG 100 MEQ IV (03:27)
[2020-09-01] MEDS: chlordiazePOXIDE 25 mg Capsule 50 MG PO ×4 (03:27→21:01)
[2020-09-01] MEDS: dexmedetomidine 400 MCG in sodium chloride 0.9% (100 ml) 100 ML 5.5 MCG IV (03:28)
[2020-09-01 05:50] LABS: Basophils % 0.3 %; Eosinophils # 0.1 10^3/uL (0.0-0.8); Eosinophils % 1.6 %; Hematocrit 25.6 % (42.0-52.0); Hemoglobin 8.3 g/dL (11.7-16.6); Lymphocytes # 1.1 10^3/uL (0.8-4.8); Lymphocytes % 16.3 %; Mean Corpuscular HGB Conc 32.4 g/dL (30.0-36.0); Mean Corpuscular Hemoglobin 33.1 pg (28.0-34.0); Monocytes # 0.7 10^3/uL (0.2-0.9); Monocytes % 9.7 %; Neutrophils # 4.86 10^3/uL (1.8-7.7); Neutrophils % 70.6 %; Nucleated Red Blood Cells % 0 %; Platelet Count 284 10^3/cmm (130-400); Red Blood Count 2.51 10^6/uL (4.1-5.3); White Blood Count 6.9 10^3/uL (4.0-10.0)
[2020-09-01 06:14] LABS: Alanine Aminotransferase 25 U/L (0-41); Albumin Level 3.2 g/dL (3.5-5.2); Alkaline Phosphatase 67 IU/L (40-130); Anion Gap 13.5 (5-19); Aspartate Amino Transferase 56 U/L (0-40); Blood Urea Nitrogen 2 mg/dL (6-20); Calcium 7.7 mg/dL (8.5-10.5); Carbon Dioxide 27 mmol/L (22-29); Chloride 104 mmol/L (98-107); Globulin 1.6 g/dL (1.3-4.6); Glomerular Filtration Rate 493.4 mL/min (90-130); Glucose 86 mg/dL (65-115); Osmolality Calculated 287 mOsm/kg (285-295); Potassium 3.5 mmol/L (3.5-5.1); Sodium 141 mmol/L (136-145); Total Bilirubin 0.5 mg/dL (0.15-1.2); Total Protein 4.8 g/dL (6.6-8.7)
[2020-09-01] MEDS: budesonide 0.5 mg/2 mL Neb INHALATION ×2 (07:46→20:37)
[2020-09-01] MEDS: tamsulosin 0.4 mg Capsule PO (08:04)
[2020-09-01] MEDS: thiamine 100 mg Tablet PO (08:04)
[2020-09-01] MEDS: levETIRAcetam 500 mg Tablet 1000 MG PO (08:04)
[2020-09-01] MEDS: multivitamin therapeutic Tablet 1 TAB PO (08:04)
[2020-09-01] MEDS: folic acid 1 mg Tablet PO (08:04)
--- NOTE | 2020-09-01 10:45 | PM.PN ---
Subjective Subjective: Interval history: No acute events overnight. Precedex turned off early in the morning. Patient is tremulous but a more awake today morning. Asking for food. Denies any nausea, vomiting, but complaining of marked pain all over the body, tremors, sweats. Heart rate running high since morning. Patient denies any palpitations or chest pain. Documented urine output in last 24 hours around 4 L and 3 bowel movements after bowel regimen. Vitals/I&O/Wt Last Vital Signs Temp 98.4 F 09/01/20 08:00 Pulse 130 H 09/01/20 10:00 Resp 18 09/01/20 10:00 BP 77/53 09/01/20 10:00 Pulse Ox 92 09/01/20 10:00 08/31/20 09/01/20 09/01/20 22:59 06:59 14:59 Intake Total 1287.515 / 2985.905 6277.435 / 3156.950 8.757 / 8.757 Output Total 1800 / 3000 1000 / 4000 480 / 480 Balance -512.485 / -1068.485 225.435 / -843.050 -471.243 / -471.243 Weight last 48 hrs Weight 62.051 kg Weight 61.507 kg Weight 61.507 kg Physical Exam Narrative: EXAM NARRATIVE: General: No acute distress, AO x3,, tremors present, CIWA 8 HEENT: PERRLA, pupils bilaterally equal and reactive Chest: Normal vesicular breath sounds, coarse crackles present on the lung pierre, more so on the right lower zone, equal good air entry bilaterally CVS: S1-S2 regular, no murmurs, tachycardia, no gallops, no rubs Abdomen: Soft, generalized abdominal pain, no guarding, no organomegaly, bowel sounds present but sluggish Neuro: No focal deficits, no facial deformity, AO x3, power 5/5 in all limbs Urinary Catheter Management^: Orourke: Cath Placed During This Visit: yes, but has since been removed by the nurse Reason for Continuing Indwelling Catheter: Acute Urinary Retention or Obstruction Urinary Catheter Date of Insertion: 08/28/20 Urinary Catheter Time of Insertion: 12:11 Date Urinary Catheter Removed: 08/28/20 Time Urinary Catheter Discontinued: 18:00 Data : 09/01/20 05:33 09/01/20 05:33 Micro: Microbiology 08/30/20 18:45 Stool Lactoferrin - Final Stool Enteric Pathogens (PCR) - Final Parasite Antigen Panel - Final C.difficile Toxin B Gene (PCR) - Final Occult Blood (FIT) - Final A&P Assessment and plan (1) Seizure: Status: Acute (2) AMS (altered mental status): Status: Acute (3) Acute alcohol intoxication: Status: Acute Qualifiers: Complication of substance-induced condition: uncomplicated Qualified Code(s): F10.920 - Alcohol use, unspecified with intoxication, uncomplicated (4) Anemia: Status: Acute (5) Hypoxia: Status: Acute (6) COPD (chronic obstructive pulmonary disease): Status: Acute (7) Diarrhea: Status: Acute (8) Urinary retention: Status: Acute Additional A&P Information Seizure: Most likely alcohol withdrawal seizure. No further seizure. Keppra 1 g oral daily twice daily. GI soft diet. Seizure precautions, fall precautions. Maintain saturation over 90%. Ativan as needed for seizures. Alcohol intoxication: Increase fluids to 150 cc/h given high urine output at present normal saline at 100 cc/h. Thiamine, folic acid. Precedex stop last night. Wean Librium to 50 every 8 hourly. We will continue to monitor. For now stop CIWA protocol Ativan. If needed can uptitrate Precedex. Tachycardia: Most likely secondary to alcohol withdrawal and dehydration from excess urine output. 500 cc bolus. Increase fluid 250 cc/h. Lopressor 12.5 mg twice daily. Will monitor for hypotension. Polyuria: Most likely secondary to seizure and excessive alcohol intake before. Check urine lites. Urine osmolality. Anemia: Post EGD. No active source of bleeding. Hemoglobin stable. Post 1 unit PRBC transfusion. Protonix 40 mg twice daily. EGD consistent with gastritis, duodenitis without any active source of bleeding. Constipation: Resolved. Patient having multiple bowel movements. Lactulose as needed now. Hypoxia: Most likely because of aspiration during seizure and alcohol intoxication along with COPD exacerbation. DuoNebs every 6 hour, budesonide twice daily. Prednisone 40 mg oral daily for next 5 days. Oxygen supplementation keeping saturation over 90%. Patient has remained afebrile. Has finished antibiotic course of 4 days. Low suspicion of pneumonia at present. Currently on 1 L saturating 96%. Stop imipenem. Urinary retention: Continue Flomax. Orourke catheterization. Will do Orourke removal trial tomorrow. Strict input output charting. Full code. GI soft diet No therapeutic DVT prophylaxis because of severe anemia. Attestations Medical Necessity Statement*: Requires further hospitalization for management of severe alcohol withdrawal, alcohol withdrawal seizures Time Spent in Patient Care: Greater than 35 minutes (>than 50% of time spent in counselling and/or direct pt care on unit). 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
[2020-09-01] MEDS: sodium chlor 0.9% + KCl 20 mEq 20 MEQ/1,000 ML BAG 150 MEQ IV ×2 (11:08→17:43)
[2020-09-01] MEDS: sodium chloride 0.9% 500 ML 999 ML IV (11:08)
[2020-09-01] MEDS: pantoprazole 40 mg SDV IVP (11:09)
[2020-09-01] MEDS: metoprolol tartrate 25 mg Tablet 12.5 MG PO ×2 (14:12→21:01)
--- NOTE | 2020-09-01 14:48 | ECG_ITS ---
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 Measurements Intervals [place] Rate: 124 P: 18 PA: 128 QRS: 38 QRSD: 77 T: 87 QT: 336 QTc: 483 Interpretive Statements SINUS TACHYCARDIA NONSPECIFIC T-WAVE ABNORMALITY Compared to ECG 08/28/2020 16:08:36 No significant changes Electronically Signed On 09-02-2020 15:37:09 CDT by Hermann Nava M.D. [id number]
[2020-09-01 15:56] LABS: Potassium, Radom Urine 66 mmol/L; Urine Random Sodium 162 mmol/L
[2020-09-01 16:35] LABS: Urine Random Chloride 241 mmol/L
[2020-09-01] MEDS: levETIRAcetam 500 mg Tablet PO (17:40)
--- NOTE | 2020-09-01 23:28 | XRR_ITS ---
PROCEDURE INFORMATION: Exam: XR Chest Exam date and time: 09/01/2020 11:30 PM Age: 59 years old Clinical indication: Dyspnea; Additional info: Evaluation of pulmonary congestion TECHNIQUE: Imaging protocol: XR of the chest. Views: 1 view. COMPARISON: CT chest con [id number] 08/29/2020 11:06 AM FINDINGS: Lungs: Mild right basilar atelectasis. No focal consolidation. Mildly prominent pulmonary vasculature. Pleural spaces: Trace right pleural effusion. No pneumothorax. Heart/Mediastinum: The cardiac shadow is normal in size. Bones/joints: No acute abnormality. XR/XR chest 1V portable [id number] IMPRESSION: 1. No focal consolidation. Mild right basilar atelectasis. 2. Mildly prominent pulmonary vasculature and trace right pleural effusion.
--- NOTE | 2020-09-01 23:30 | PC.NURSE ---
Pt resting in bed on nurse heard coughing and went to bedside. Pt was found gurgling white frothy secretions from mouth. HOB raised to fowlers, preformed suction and had copious amount of thin clear frothy sputum. Maintained oxygen saturation on 2L. Lung sounds diminished throughout with rhonchi auscultated to RLL. Audible wet vocal cords. Pt refuses to cough to clear any more secretions at this time. Fluids stopped due to suspicion of fluid overload. Dr. Byrd was notified and received orders for chest xray and BNP. Order received to hold fluids until other orders have been completed.
[2020-09-02] VITALS (27 sets, daily range): BP systolic 97–128; BP diastolic 75–92; PULSE 93–129; RESP 14–29; TEMP 36.4–37; O2SAT 90–99
[2020-09-02] MEDS: pantoprazole 40 mg SDV IVP ×3 (00:23→23:45)
[2020-09-02 00:37] LABS: NT Pro B Type Natriuretic Pept 1372 pg/mL (0-125)
[2020-09-02] MEDS: ipratropium-albuterol 3 mL Neb INHALATION ×4 (02:28→19:59)
[2020-09-02 05:31] LABS: Basophils # 0.1 10^3/uL (0.0-0.1); Basophils % 0.7 %; Eosinophils # 0.1 10^3/uL (0.0-0.8); Eosinophils % 1.5 %; Hematocrit 30.4 % (42.0-52.0); Lymphocytes # 1.4 10^3/uL (0.8-4.8); Lymphocytes % 19.4 %; Mean Corpuscular HGB Conc 29.6 g/dL (30.0-36.0); Mean Corpuscular Hemoglobin 32.5 pg (28.0-34.0); Mean Corpuscular Volume 109.7 fL (80-94); Mean Platelet Volume 9.4 fL (7.4-10.4); Monocytes # 0.9 10^3/uL (0.2-0.9); Neutrophils # 4.69 10^3/uL (1.8-7.7); Nucleated Red Blood Cells % 0 %; Platelet Count 273 10^3/cmm (130-400); Red Blood Count 2.77 10^6/uL (4.1-5.3); Red Cell Distribution Width 21.1 % (12.1-15.1); White Blood Count 7.2 10^3/uL (4.0-10.0)
[2020-09-02] MEDS: chlordiazePOXIDE 25 mg Capsule 50 MG PO ×3 (05:51→21:25)
[2020-09-02 05:55] LABS: Alanine Aminotransferase 25 U/L (0-41); Alkaline Phosphatase 76 IU/L (40-130); Anion Gap 13.6 (5-19); Aspartate Amino Transferase 45 U/L (0-40); Blood Urea Nitrogen 4 mg/dL (6-20); Calcium 7.8 mg/dL (8.5-10.5); Carbon Dioxide 25 mmol/L (22-29); Chloride 103 mmol/L (98-107); Globulin 2.1 g/dL (1.3-4.6); Glucose 82 mg/dL (65-115); Osmolality Calculated 282 mOsm/kg (285-295); Potassium 3.6 mmol/L (3.5-5.1); Sodium 138 mmol/L (136-145); Total Bilirubin 0.6 mg/dL (0.15-1.2); Total Protein 5.1 g/dL (6.6-8.7)
[2020-09-02] MEDS: levETIRAcetam 500 mg Tablet PO ×2 (08:03→18:03)
[2020-09-02] MEDS: folic acid 1 mg Tablet PO (08:03)
[2020-09-02] MEDS: tamsulosin 0.4 mg Capsule PO (08:03)
[2020-09-02] MEDS: thiamine 100 mg Tablet PO (08:03)
[2020-09-02] MEDS: predniSONE 20 mg Tablet 40 MG PO (08:03)
[2020-09-02] MEDS: multivitamin therapeutic Tablet 1 TAB PO (08:03)
[2020-09-02] MEDS: metoprolol tartrate 25 mg Tablet PO ×2 (08:03→21:25)
[2020-09-02] MEDS: budesonide 0.5 mg/2 mL Neb INHALATION ×2 (09:01→19:59)
--- NOTE | 2020-09-02 09:22 | PM.PN ---
Subjective Subjective: Interval history: Patient remains in ICU due to tachycardia but hemoglobin appears to be remaining stable. He might be getting transferred to the floor today. Vitals/I&O/Wt Last Vital Signs Temp 98.0 F 09/02/20 07:00 Pulse 111 H 09/02/20 09:11 Resp 18 09/02/20 08:55 BP 111/87 09/02/20 08:00 Pulse Ox 97 09/02/20 08:55 09/01/20 09/02/20 09/02/20 22:59 06:59 14:59 Intake Total 1327.5 / 3675.424 867.5 / 3675.424 250 / 250 Output Total 780 / 4335 1675 / 4335 Balance 547.5 / -659.576 -807.5 / -659.576 250 / 250 Weight last 48 hrs Weight 137 lb 8 oz Weight 136 lb 12.8 oz Weight 135 lb 9.6 oz Physical Exam Urinary Catheter Management^: Orourke: Cath Placed During This Visit: yes, but has since been removed by the nurse Reason for Continuing Indwelling Catheter: Acute Urinary Retention or Obstruction Urinary Catheter Date of Insertion: 08/28/20 Urinary Catheter Time of Insertion: 12:11 Date Urinary Catheter Removed: 08/28/20 Time Urinary Catheter Discontinued: 18:00 Data : 09/02/20 05:10 09/02/20 05:10 A&P Assessment and plan (1) Anemia: Status post EGD on 08/31/2020 with findings of gastritis. I performed a BRITTON test at the time of the patient's procedure but cannot find the results anywhere in the computer system. I have contacted the lab and they cannot find one, either. They have sent a message to pathology, but with today being Thursday I do not expect we will get any further information on this until at least tomorrow. Status: Acute (2) Gastritis: Status: Acute (3) Melena: The patient reports black stools for the last 2 months. Status: Acute (4) Alcoholism: Status: Acute Attestations Medical Necessity Statement*: See admitting service's notation. 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
--- NOTE | 2020-09-02 10:55 | PM.PN ---
Subjective Subjective: Interval history: No acute events overnight. Patient on examination he still having tremors, seems confused but is able to tell me his name, his date of he thinks he is at home complaining of pain all over his body. Denies any nausea. Patient seems to have been having occasional hallucinations as well as per the nurse. Has remained hemodynamically stable. On 3 l nasal cannula. Vitals/I&O/Wt Last Vital Signs Temp 98.0 F 09/02/20 07:00 Pulse 111 H 09/02/20 09:11 Resp 18 09/02/20 08:55 BP 111/87 09/02/20 08:00 Pulse Ox 97 09/02/20 08:55 09/01/20 09/02/20 09/02/20 22:59 06:59 14:59 Intake Total 1327.5 / 2807.924 867.5 / 3675.424 250 / 250 Output Total 780 / 2660 1675 / 4335 Balance 547.5 / 147.924 -807.5 / -659.576 250 / 250 Weight last 48 hrs Weight 62.369 kg Weight 62.051 kg Weight 61.507 kg Physical Exam Narrative: EXAM NARRATIVE: General: No acute distress, AO x3, tremors present, CIWA 8 HEENT: PERRLA, pupils bilaterally equal and reactive Chest: Normal vesicular breath sounds, coarse crackles present on the lung pierre, more so on the right lower zone, equal good air entry bilaterally CVS: S1-S2 regular, no murmurs, tachycardia, no gallops, no rubs Abdomen: Soft, generalized abdominal pain, no guarding, no organomegaly, bowel sounds present but sluggish Neuro: No focal deficits, no facial deformity, AO x3, power 5/5 in all limbs Urinary Catheter Management^: Orourke: Cath Placed During This Visit: yes, but has since been removed by the nurse Reason for Continuing Indwelling Catheter: Acute Urinary Retention or Obstruction Urinary Catheter Date of Insertion: 08/28/20 Urinary Catheter Time of Insertion: 12:11 Date Urinary Catheter Removed: 08/28/20 Time Urinary Catheter Discontinued: 18:00 Data : 09/02/20 05:10 09/02/20 05:10 A&P Assessment and plan (1) Alcohol withdrawal seizure with delirium: Status: Acute (2) AMS (altered mental status): Status: Acute (3) Acute alcohol intoxication: Status: Acute Qualifiers: Complication of substance-induced condition: uncomplicated Qualified Code(s): F10.920 - Alcohol use, unspecified with intoxication, uncomplicated (4) Gastritis: Status: Acute (5) Anemia: Status: Acute (6) Hypoxia: Status: Acute (7) COPD (chronic obstructive pulmonary disease): Status: Acute (8) Urinary retention: Status: Acute (9) Diarrhea: Status: Acute Additional A&P Information Alcohol withdrawal seizure: Continue Keppra 500 mg twice daily as per the body weight. Seizure precautions, fall precautions. Maintain saturation 90%. Ativan as needed for seizure. History of alcohol abuse: Alcohol withdrawal present: Continue with Librium 50 every 8 hours for now. For now we will continue the same dose and wean off tomorrow. Thiamine, folic acid. Swallow eval. Will change diet accordingly. Hypoxia: Has a history of COPD: Mild exacerbation most likely because of occasional aspiration. Swallow eval as above. Start IV fluids. Cannot rule out possible CHF. Echocardiogram to rule out alcohol induced cardiomyopathy. For now hold off on any Lasix as patient is having polyuria. Prednisone 40 mg oral daily for next 4 days. DuoNebs, budesonide. Oxygen supplementation keeping saturation of 90%. Anemia: Post monitored transfusion. Hemoglobin stable. EEG done consistent with gastritis and duodenitis. Continue with Protonix twice daily. Lactulose as needed for constipation. Polyuria: Most likely secondary to excessive alcohol intake in the past. Urine lites appreciated. Osmolality pending. No signs of dehydration for now. Urinary retention: Continue Flomax. Orourke catheterization. Will do Orourke removal trial tomorrow. Strict input output charting. Full code. GI soft diet for now. Will change as per speech and swallow eval. No therapeutic DVT prophylaxis because of severe anemia. Transfer to medical surgical floor. Attestations Medical Necessity Statement*: Requires further hospitalization for management of alcohol withdrawal seizure and delirium Time Spent in Patient Care: Greater than 35 minutes (>than 50% of time spent in counselling and/or direct pt care on unit). 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
[2020-09-02] MEDS: lactulose oral liq 20 gm/30 mL UDC 30 GM PO (11:08)
--- NOTE | 2020-09-02 13:26 | USCV_ITS ---
Vasyl Reis Age: 59 Gender: M : 1960 Exam Date: 09/02/2020 15:57 Ordering Phys: Aramis Canas MD Technologist: July Falcon Exam Location: [facility] [place] Indication: ALCOHOLIC CARDIOMYOPATHY BP: 112 / 81 HR: 111 Rhythm: Sinus Technical Quality: TDS MEASUREMENTS (Male / Female) Normal Values 2D ECHO LV Diastolic Diameter PLAX 2.6 cm 4.2 - 5.9 / 3.9 - 5.3 cm LV Systolic Diameter PLAX 2.3 cm LV Chamber Size 3.1 cm IVS Diastolic Thickness 1.3 cm 0.6 - 1.0 / 0.6 - 0.9 cm IVS Systolic Thickness 1.3 cm LVPW Diastolic Thickness 1.1 cm 0.6 - 1.0 / 0.6 - 0.9 cm LVPW Systolic Thickness 1.5 cm RV Chamber Size 1.6 cm LVOT Diameter 2.0 cm LV Ejection Fraction 2D Teich 1.2 % LV Ejection Fraction MOD 2C 69.0 % LV Ejection Fraction 2C AL 68.7 % LA Diameter 2.7 cm LA Width 2.4 cm LA Height 0.0 cm RA Width 3.3 cm RA Height 3.9 cm Aorta at Sinotubular Diameter 3.2 cm M-MODE LV Diastolic Diameter MM 4.6 cm 4.2 - 5.9 / 3.9 - 5.3 cm LV Systolic Diameter MM 2.6 cm LV Ejection Fraction MM Teich 75.7 % IVS Diastolic Thickness MM 1.6 cm 0.6 - 1.0 / 0.6 - 0.9 cm IVS Systolic Thickness MM 1.6 cm LVPW Diastolic Thickness MM 1.7 cm 0.6 - 1.0 / 0.6 - 0.9 cm LVPW Systolic Thickness MM 2.0 cm Aortic Annulus Diameter 3.5 cm LA Ao Ratio MM 0.9 MV E Point Septal Separation 0.8 cm DOPPLER AV Peak Velocity 123.7 cm/s LVOT Peak Velocity 95.0 cm/s AV Area Cont Eq vti 2.3 cm squared AV Area Cont Eq pk 2.5 cm squared MV Area PHT 11.0 cm squared Mitral E to A Ratio 0.8 MV E' Velocity 37.5 cm/s Mitral E to MV E' Ratio 5.1 Mitral E to LV E' Lateral Ratio 6.3 Mitral E to LV E' Septal Ratio 4.3 TR Peak Velocity 203.4 cm/s TR Peak Gradient 16.5 mmHg TR Mean Velocity 130.9 cm/s TR Mean Gradient 8.0 mmHg TR Velocity Time Integral 47.5 cm TV Peak E Velocity 75.0 cm/s Right Atrial Pressure 3.0 mmHg Pulmonary Artery Systolic Pressu 19.5 mmHg PV Peak Velocity 73.0 cm/s RV Acceleration Time 0.1 s RV Ejection Time 0.3 s RV AcT/ET 0.3 FINDINGS Left Ventricle Technically difficult study. Normal left ventricular size. LV systolic function is normal with EF of 60-65%. No regional wall motion abnormalities. Diastolic function is indeterminate because of tachycardia Right Ventricle Grossly normal Right Atrium Grossly normal Left Atrium Grossly normal Mitral Valve Grossly normal Aortic Valve Not well visualized. No significant stenosis noted Tricuspid Valve Not well visualized Pulmonic Valve Not visualized Pericardium Normal pericardium without effusion. Aorta Grossly normal CONCLUSIONS Poor ultrasonic windows LV systolic function is normal with EF of 60-65% Valvular structures not well visualized but no gross abnormalities No comparison studies are available Hermann Nava MD (Electronically Signed) Final Date: 02 Sep 2020 21:43 S
[2020-09-03] VITALS (12 sets, daily range): BP systolic 96–138; BP diastolic 64–91; PULSE 82–111; RESP 16–22; TEMP 36.4–36.7; O2SAT 92–100
[2020-09-03] MEDS: ipratropium-albuterol 3 mL Neb INHALATION ×3 (02:58→15:50)
[2020-09-03 05:02] LABS: Basophils % 0.4 %; Eosinophils % 0.5 %; Hematocrit 27.2 % (42.0-52.0); Hemoglobin 8.7 g/dL (11.7-16.6); Mean Corpuscular Hemoglobin 33.3 pg (28.0-34.0); Mean Corpuscular Volume 104.2 fL (80-94); Mean Platelet Volume 9.4 fL (7.4-10.4); Monocytes # 1.1 10^3/uL (0.2-0.9); Monocytes % 14.8 %; Neutrophils # 5.07 10^3/uL (1.8-7.7); Neutrophils % 69.3 %; Nucleated Red Blood Cells % 0 %; Platelet Count 386 10^3/cmm (130-400); Red Blood Count 2.61 10^6/uL (4.1-5.3); White Blood Count 7.3 10^3/uL (4.0-10.0)
--- NOTE | 2020-09-03 05:07 | PC.NURSE ---
When entering the pt's room, pt was sideways in bed with one leg hanging over the bedrail. After placing pt's leg back into bed, and bending down to empty catheter, this nurse noticed that the clamp had been unclamped and urine leaked all under the bed all the way to the wall next to the bathroom. This was documented as one void, but it was a large amount of urine that was cleaned up.
[2020-09-03 05:22] LABS: Alanine Aminotransferase 25 U/L (0-41); Albumin Level 3.4 g/dL (3.5-5.2); Alkaline Phosphatase 76 IU/L (40-130); Blood Urea Nitrogen 4 mg/dL (6-20); Calcium 8.1 mg/dL (8.5-10.5); Carbon Dioxide 29 mmol/L (22-29); Chloride 105 mmol/L (98-107); Globulin 2.1 g/dL (1.3-4.6); Glucose 83 mg/dL (65-115); Osmolality Calculated 292 mOsm/kg (285-295); Sodium 143 mmol/L (136-145); Total Bilirubin 0.7 mg/dL (0.15-1.2); Total Protein 5.5 g/dL (6.6-8.7)
[2020-09-03 05:28] LABS: Anion Gap 12.5 (5-19); Aspartate Amino Transferase 42 U/L (0-40); Potassium 3.5 mmol/L (3.5-5.1)
[2020-09-03] MEDS: chlordiazePOXIDE 25 mg Capsule 50 MG PO (06:47)
[2020-09-03] MEDS: budesonide 0.5 mg/2 mL Neb INHALATION (08:17)
--- NOTE | 2020-09-03 10:47 | P.PN_ITS ---
Subjective Subjective: Interval history: No events overnight. Patient is a lot more alert today but still having episodes of confusion. Continues to remain tremulous. Wants to go home. States he wants to wear his clothes and walked out of the room. Denies any nausea vomiting, headache. Still feels extremely weak. Not able to stand up by himself. Vitals/I&O/Wt Last Vital Signs Temp 97.6 F 09/03/20 08:00 Pulse 111 H 09/03/20 08:28 Resp 22 H 09/03/20 08:17 BP 135/90 09/03/20 08:00 Pulse Ox 94 09/03/20 08:17 09/02/20 09/03/20 09/03/20 22:59 06:59 14:59 Intake Total 132.5 / 832.5 Output Total 0 / 1000 350 / 1350 Balance 132.5 / -167.5 -350 / -517.5 Weight last 48 hrs Weight 54.023 kg Weight 62.369 kg Physical Exam Narrative: EXAM NARRATIVE: General: No acute distress, AO x3, tremors present, CIWA 5 HEENT: PERRLA, pupils bilaterally equal and reactive Chest: Normal vesicular breath sounds, coarse crackles present on the lung pierre, more so on the right lower zone, equal good air entry bilaterally CVS: S1-S2 regular, no murmurs, tachycardia, no gallops, no rubs Abdomen: Soft, generalized abdominal pain, no guarding, no organomegaly, bowel sounds present but sluggish Neuro: No focal deficits, no facial deformity, AO x3, power 5/5 in all limbs Urinary Catheter Management^: Orourke: Cath Placed During This Visit: yes, but has since been removed by the nurse Reason for Continuing Indwelling Catheter: Acute Urinary Retention or Obstruction Urinary Catheter Date of Insertion: 08/28/20 Urinary Catheter Time of Insertion: 12:11 Date Urinary Catheter Removed: 08/28/20 Time Urinary Catheter Discontinued: 18:00 Data : 09/03/20 04:43 09/03/20 04:43 Micro: Microbiology 08/28/20 10:47 Blood Culture - Final Blood NO GROWTH AFTER 5 DAYS 08/28/20 10:33 Blood Culture - Final Blood NO GROWTH AFTER 5 DAYS A&P Assessment and plan (1) Alcohol withdrawal seizure with delirium: Status: Acute (2) AMS (altered mental status): Status: Acute (3) Acute alcohol intoxication: Status: Acute Qualifiers: Complication of substance-induced condition: uncomplicated Qualified Code(s): F10.920 - Alcohol use, unspecified with intoxication, uncomplicated (4) Gastritis: Status: Acute (5) Anemia: Status: Acute (6) Hypoxia: Status: Acute (7) COPD (chronic obstructive pulmonary disease): Status: Acute (8) Urinary retention: Status: Acute (9) Diarrhea: Status: Acute Additional A&P Information Alcohol withdrawal seizure: Continue Keppra 500 mg twice daily as per the body weight. Seizure precautions, fall precautions. Maintain saturation 90%. Ativan as needed for seizure. History of alcohol abuse: Alcohol withdrawal present: Wean Librium 25 every 8 hours for now. We will continue to wean and most likely convert to twice daily tomorrow. Thiamine, folic acid. Add gabapentin 200 mg 3 times daily. Swallow eval. Will change diet accordingly. Hypoxia: Has a history of COPD: Mild exacerbation most likely because of occasional aspiration. Fluids stopped. Echocardiogram shows EF of 60 to 65% without concerns for alcohol induced cardiomyopathy. Prednisone 40 mg daily for 2 more days. DuoNebs, budesonide. Oxygen supplementation keeping saturation of 90%. Anemia: Post monitored transfusion. Hemoglobin stable. EEG done consistent with gastritis and duodenitis. Continue with Protonix twice daily. Lactulose as needed for constipation. Polyuria: Resolved. Most likely secondary to excessive alcohol intake in the past. Urine lites appreciated. Osmolality pending. No signs of dehydration for now. Urinary retention: Continue Flomax. DC Orourke and do a voiding trial. Strict input output charting. Full code. Pur?ed diet as per swallow evaluation. No therapeutic DVT prophylaxis because of severe anemia. PT/OT/swallow evaluation. Attestations Medical Necessity Statement*: Requires further hospitalization for alcohol withdrawal. Time Spent in Patient Care: Greater than 35 minutes (>than 50% of time spent in counselling and/or direct pt care on unit) . 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
--- NOTE | 2020-09-03 11:12 | PC.NUTR ---
Nutrition reassessment: Added Ensure Plus with meals back to diet order, as it appears to have been dropped when texture was changed. Recommend to encourage po intakes of meals/supplement. Recommend assistance at meals and weighted utensils as appropriate, per nursing report that pt is struggling to feed self. Weight loss of 16 lbs noted since last review--error in current weight suspected. Recommend obtain current weight when possible to rule out significant weight loss since admission.
[2020-09-03] MEDS: pantoprazole 40 mg SDV IVP (12:10)
[2020-09-03 13:38] LABS: Osmolality Urine 593 mOsm/kg (50-1200)
[2020-09-03] MEDS: chlordiazePOXIDE 25 mg Capsule PO ×2 (13:49→21:33)
--- NOTE | 2020-09-03 14:42 | PC.OT ---
Patient refused OT x 3 today. Will attempt again tomorrow.
[2020-09-03] MEDS: gabapentin 100 mg Capsule 200 MG PO ×2 (18:07→21:32)
[2020-09-03] MEDS: levETIRAcetam 500 mg Tablet PO (18:07)
[2020-09-03] MEDS: metoprolol tartrate 25 mg Tablet PO (21:33)
[2020-09-04] VITALS (35 sets, daily range): BP systolic 81–117; BP diastolic 53–95; PULSE 92–126; RESP 13–24; TEMP 36.7; O2SAT 88–100
[2020-09-04] MEDS: pantoprazole 40 mg SDV IVP (00:46)
[2020-09-04 01:14] LABS: Glucose Point of Care 88 mg/dL (70-110)
--- NOTE | 2020-09-04 01:18 | XRR_ITS ---
PROCEDURE INFORMATION: Exam: XR Chest Exam date and time: 09/04/2020 1:41 AM Age: 59 years old Clinical indication: Dyspnea; Additional info: Lung sounds TECHNIQUE: Imaging protocol: XR of the chest. Views: 1 view. COMPARISON: CR (CHEST, ) 09/01/2020 11:43 PM FINDINGS: Lungs: Upper lobe emphysema. Increase in right basilar opacities likely relating to increase in pleural fluid from prior study. Left basilar opacities are stable. Pleural spaces: See Lungs finding. Heart/Mediastinum: Unremarkable. No cardiomegaly. Bones/joints: No acute findings. XR/XR chest 1V portable [id number] IMPRESSION: Interval increase in right basilar opacities likely relating to increase in pleural fluid. Left basilar opacities that may relate to combination of airspace disease and pleural fluid are stable.
[2020-09-04 01:22] LABS: ABG PCO2 51.6 mmHg (35-45); ABG PH Result 7.41 (7.35-7.45); Arterial Blood Gas Hematocrit 26.9 % (42-52); Base Excess ABG 6.8 mmol/L (-2.0-2.0); Blood Gas Allen Test Pos; Blood Gas Sample Site Radial, left; Blood Gas Sample Type Arterial; HCO3 ABG 32.4 mmol/L (22-26); Oxygen Device OXY MASK; PO2 ABG 59.7 mmHg (80.0-100.0)
--- NOTE | 2020-09-04 01:44 | PM.EVENT ---
Event Note Event Note: I was notified by the nurse regarding hypoxia. Patient was evaluated at the bedside, he was saturating 84-88% on 10 L oxymask, lethargic, however able to follow commands Fingerstick review blood glucose 80 mg/deciliter Sinus tachycardia Pale complexion Chest congestion, patient sounds very wet, upper airway secretions Assessment and plan Start nonrebreather 15 L, I stayed in the room to see the response, O2 saturation was 98% on nonrebreather mask, Patient received 1 amp of D50 as well Transfer to ICU Requested stat x-ray, as per the nurses he is swallowing is not optimal, high risk for aspiration, previous x-ray is showing right lower lobe infiltrate however he has been afebrile no leukocytosis, I would hold off on adding antibiotics until I compare today's x-ray
[2020-09-04] MEDS: dextrose 50% syringe 50 mL IVP (01:47)
--- NOTE | 2020-09-04 02:18 | PC.NURSE ---
Arrived on unit from [place] approximately 0200, arrived on 15L NRB sat 100% switched to 5L Oxymask sat currently 94%. suctioned per RT, AO to name and being in [place] follows commands, lungs coarse, supine 45 degrees call light within reach at this time
--- NOTE | 2020-09-04 02:44 | PC.NURSE ---
O2 sat 86 5L Oxymask, 88 10L Oxymask, NRB 15L placed back on, RT notified
[2020-09-04] MEDS: acetylcysteine 200 mg/mL SDV 4 mL 100 MG INHALATION ×6 (04:01→23:01)
[2020-09-04] MEDS: ipratropium-albuterol 3 mL Neb INHALATION ×6 (04:01→22:59)
[2020-09-04] MEDS: clindamycin 300 MG/50 ML PREMIX 100 MG IV (04:18)
[2020-09-04 04:33] LABS: Basophils # 0.1 10^3/uL (0.0-0.1); Basophils % 0.6 %; Eosinophils # 0.1 10^3/uL (0.0-0.8); Eosinophils % 0.8 %; Hematocrit 29.2 % (42.0-52.0); Lymphocytes # 0.7 10^3/uL (0.8-4.8); Lymphocytes % 7.8 %; Mean Corpuscular HGB Conc 30.8 g/dL (30.0-36.0); Mean Corpuscular Hemoglobin 33.1 pg (28.0-34.0); Mean Corpuscular Volume 107.4 fL (80-94); Mean Platelet Volume 8.9 fL (7.4-10.4); Monocytes # 1.1 10^3/uL (0.2-0.9); Monocytes % 12.5 %; Neutrophils % 77.7 %; Nucleated Red Blood Cells % 0 %; Platelet Count 457 10^3/cmm (130-400); Red Blood Count 2.72 10^6/uL (4.1-5.3); Red Cell Distribution Width 19.8 % (12.1-15.1); White Blood Count 8.7 10^3/uL (4.0-10.0)
[2020-09-04 04:38] LABS: Alanine Aminotransferase 22 U/L (0-41); Albumin Level 3.1 g/dL (3.5-5.2); Alkaline Phosphatase 75 IU/L (40-130); Aspartate Amino Transferase 33 U/L (0-40); Blood Urea Nitrogen 7 mg/dL (6-20); Carbon Dioxide 31 mmol/L (22-29); Chloride 104 mmol/L (98-107); Globulin 2.3 g/dL (1.3-4.6); Glucose 103 mg/dL (65-115); Osmolality Calculated 296 mOsm/kg (285-295); Sodium 144 mmol/L (136-145); Total Bilirubin 0.5 mg/dL (0.15-1.2); Total Protein 5.4 g/dL (6.6-8.7)
[2020-09-04 04:45] LABS: Anion Gap 12.8 (5-19); Potassium 3.8 mmol/L (3.5-5.1)
[2020-09-04 05:09] LABS: Procalcitonin 0.08 ng/mL (0-0.5)
[2020-09-04 05:18] LABS: Glucose Point of Care 96 mg/dL (70-110)
[2020-09-04 06:54] LABS: H. Pylori IgG Antibody Negative (Negative)
--- NOTE | 2020-09-04 08:00 | PC.NURSE ---
Pt was 100% on Non rebreather. Put on Simple mask at 8.
--- NOTE | 2020-09-04 09:15 | PC.NURSE ---
Sats dropped to 86% on 8L. Increased to 15 simple mask. Spoke with Felecia SHERWOOD, regarding next options regarding cpap/bipap. Also notified Dr. Curiel regarding decrease in BP and decreased Mean. New orders received.
--- NOTE | 2020-09-04 09:22 | PC.NURSE ---
Oral medications held this am because pt is too weak to take anything by mouth. is aware.
--- NOTE | 2020-09-04 09:33 | PC.CHAP ---
Pastoral Care Encounter/Spiritual Assessment Type of Contact [] Declined household refrigerator mechanic visit [] Patient/Family/Request visit [] Outpatient visit [] Follow-up visit [] Physician referral [] Code/Alert [x] Routine visit [] Staff referral [] Actively dying [] Patient sleeping [] Family support [] [] Out of room [] Palliative care [] [x] Receiving care in room [] Pre-surgical visit [] Trauma [] Long length of stay [x] ICU visit [x] Other: 3 doctors present.. Relational/Emotional Strength [] Patient feels connected with others/family/visitors/staff [] Distress [] Loneliness/isolation [] Abandonment Spirituality of Patient [] Person of Keisha [] Attends Muslim of their Keisha [] Believes in Prayer [] Reads Bible or Adventism materials [] There are Spiritual issues to be addressed Oil Well Engineer Interventions [x] Prayer [] Active listening [] Non-anxious presence [] Spiritual/emotional support [] Crisis/trauma care [] Spiritual counseling [] Bereavement support [] Provided bereavement packet [] Provided Bible/devotional materials [] Provided toy/stuffed animal, coloring book to patient or family member [] Provided Communion [] Anointing/[place] [] Salvation [x Completed spiritual assessment [] Other: Impact on Illness or Injury [] Angry [] Fearful [] Anxious [] Often cries [] Exhaustion [] Unable to work [] Unable to attend hinduism [] Unable to walk/stand [] Unable to read [] Unable to drive [] Unable to eat/drink [] Unable to sleep [] Unable to be with family [] Patient intubated [] Other: Summary Time spent with patient
[2020-09-04] MEDS: lactated ringers 500 ML 999 ML IV (10:37)
[2020-09-04 11:25] LABS: Add Urine Microscopic? NO; Charge for UA Resulting for Rev
[2020-09-04 11:59] LABS: Bilirubin Urine Neg (Negative); Blood Urine Neg (Negative); Glucose Urine UA 1+ (Normal); Ketones Urine Negative (Negative); Leukocyte Esterase Urine Negative (Negative); Nitrate Urine Negative (Negative); Protein Urine Neg (Negative); Urine Appearance Clear (CLEAR); Urine Color Yellow (Yellow); Urobilinogen Urine 1 mg/dL (Negative); pH Urine 6.5 (5-7)
[2020-09-04 12:26] LABS: SARS Covid-2 Antigen Negative (Negative)
[2020-09-04 12:30] LABS: Glucose Point of Care 87 mg/dL (70-110)
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
--- NOTE | 2020-09-04 16:14 | PC.OT ---
OT tx attempted. Pt transferred to ICU due to decline in status. ICU nurse requested therapy to be held today. OTR to attempt tomorrow.
[2020-09-04] MEDS: chlordiazePOXIDE 25 mg Capsule PO (16:32)
[2020-09-04] MEDS: vancomycin 750 MG in sodium chloride 0.9% 250 ML 250 MG IV ×2 (16:35→22:00)
[2020-09-04 16:39] LABS: Levetiracetam Keppra 24.3 mcg/mL
--- NOTE | 2020-09-04 17:04 | PM.PN ---
Subjective Subjective: Interval history: Somewhat difficult to understand due to speaking quietly and indistinctly. Appears to perhaps be bothered by some neck pain. Denies being short of breath. No chest pain. Overnight became more hypoxic. This morning also hypotensive. Nursing staff reported concern regarding aspiration on pudding last night, though not clear that this was witnessed. Vitals/I&O/Wt Last Vital Signs Temp 98.1 F 09/04/20 11:00 Pulse 96 09/04/20 15:20 Resp 17 09/04/20 15:05 BP 99/66 09/04/20 12:00 Pulse Ox 98 09/04/20 15:05 09/04/20 09/04/20 09/04/20 06:59 14:59 22:59 Intake Total 100 / 100 108.047 / 208.047 Output Total 500 / 500 Balance -400 / -400 108.047 / -291.953 Weight last 48 hrs Weight 53.977 kg Weight 54.023 kg Physical Exam Const: COMMON NORMALS: no acute distress GENERAL APPEARANCE: disheveled and frail appearing OTHER: Generally weak HENMT: COMMON NORMALS: oropharynx normal Neck/C-Spine: COMMON NORMALS: no JVD Resp: COMMON NORMALS: normal respiratory effort AUSCULTATION: rhonchi, wheezes and diminished lung sounds Cardio: COMMON NORMALS: no JVD, regular rhythm, S1 normal heart sound present, S2 normal heart sound present and No murmurs present (Cardio) RHYTHM: regular rhythm HEART SOUNDS: S1 normal heart sound present and S2 normal heart sound present GI: COMMON NORMALS: Normal to inspection, nondistended, normoactive bowel sounds present, Soft to palpation and non-tender PALPATION: Yes Soft to palpation Extremity: COMMON NORMALS: no joint enlargement and no pedal edema Neuro: COMMON NORMALS: moves all extremities Skin: COMMON NORMALS: no rashes or lesions noted GENERAL SKIN EXAM: no rashes or lesions noted Urinary Catheter Management^: Orourke: Cath Placed During This Visit: yes, but has since been removed by the nurse Reason for Continuing Indwelling Catheter: Decision to DC Catheter Urinary Catheter Date of Insertion: 09/04/20 Urinary Catheter Time of Insertion: 10:00 Date Urinary Catheter Removed: 09/03/20 Time Urinary Catheter Discontinued: 15:30 Data : 09/04/20 04:26 09/04/20 03:27 Micro: Microbiology 05/25/21 10:12 Blood Culture - Preliminary Blood SPECIMEN COLLECTED 09/04/20 10:00 Blood Culture - Preliminary Blood SPECIMEN COLLECTED A&P Assessment and plan (1) Acute respiratory failure with hypoxemia: Suspected aspiration pneumonia. Rapid COVID-19 negative. Afebrile. Suspected aspiration on pudding last night. Small pleural effusion. Not enough at this time for thoracentesis. Appreciate pulmonology assessment. Penicillin allergic. Broaden antibiotic coverage with Zosyn. Vancomycin. Follow-up blood cultures. Reassess chest x-ray, ABG in the morning. Continue oxygen support, wean off as tolerating. Aspiration precautions. Was n.p.o. initially, assessed by speech therapy with recommendation for level 2 dysphagia diet. Status: Acute (2) Hypotension: Considerations resume given to need for pressors, however, responded to bolus. For now hold off additional bolus as per discussion with intensive care. Appears without fluctuation and IVC for now. Per night, appears may be fluid responsive. Blood pressure has improved. Monitor. Hold Flomax. Status: Acute (3) Alcohol withdrawal seizure with delirium: So far without seizure recurrence. Continue alcohol withdrawal protocol. For now continue Librium. Taper off. Is also on Keppra. Status: Acute (4) AMS (altered mental status): Continue supportive care for alcohol withdrawal. Status: Acute Qualifiers: Altered mental status type: transient alteration of awareness Qualified Code(s): R40.4 - Transient alteration of awareness (5) Acute alcohol intoxication: Resolved Status: Acute Qualifiers: Complication of substance-induced condition: uncomplicated Qualified Code(s): F10.920 - Alcohol use, unspecified with intoxication, uncomplicated (6) Gastritis: PPI Status: Acute (7) Anemia: Appears stable posttransfusion Gastritis, duodenitis Status: Acute (8) Hypoxia: Status: Acute (9) COPD (chronic obstructive pulmonary disease): Status: Acute Qualifiers: COPD type: unspecified COPD Qualified Code(s): J44.9 - Chronic obstructive pulmonary disease, unspecified (10) Urinary retention: Orourke replaced due to hypotension, lack of urine output. Prior retention. Appears close to a liter came out after placing a Orourke. Flomax on hold for now due to hypotension. Status: Acute (11) Diarrhea: Status: Acute (12) Aspiration pneumonia: As above. Status: Acute Qualifiers: Aspiration pneumonia type: due to regurgitated food Laterality: right Lung location: lower lobe of lung Qualified Code(s): J69.0 - Pneumonitis due to inhalation of food and vomit Additional A&P Information History of alcohol abuse Polyuria: Resolved. Most likely secondary to excessive alcohol intake in the past. Attestations Medical Necessity Statement*: Continue admission for assessment management of acute respiratory failure with hypoxia, hypotension, aspiration pneumonia, urinary retention. 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 [facility] Diagnoses Acute respiratory failure with hypoxemia J96.01 Hypotension I95.9 Alcohol withdrawal seizure with delirium F10.231; R56.9 AMS (altered mental status) R40.4 Altered mental status type: transient alteration of awareness Acute alcohol intoxication F10.920 Complication of substance-induced condition: uncomplicated Gastritis K29.70 Anemia D64.9 Hypoxia R09.02 COPD (chronic obstructive pulmonary disease) J44.9 COPD type: unspecified COPD Urinary retention R33.9 Diarrhea R19.7 Aspiration pneumonia J69.0 Aspiration pneumonia type: due to regurgitated food Laterality: right Lung location: lower lobe of lung
[2020-09-04 20:50] LABS: Glucose Point of Care 118 mg/dL (70-110)
--- NOTE | 2020-09-04 21:03 | ECG_ITS ---
[facility] Test Date: 2020-09-04 Pat Name: Vasyl Reis Department: Room: [facility] Gender: Male Director Software: : 1960 Requested By: Aspen Mijares Order Number: [id number] Agustin MD: Yoko Restrepo M.D. Measurements Intervals [place] Rate: 127 P: 68 WI: 156 QRS: 64 QRSD: 72 T: 86 QT: 335 QTc: 488 Interpretive Statements SINUS TACHYCARDIA WITH OCCASIONAL SUPRAVENTRICULAR PREMATURE COMPLEXES NONSPECIFIC T-WAVE ABNORMALITY ABNORMAL RHYTHM ECG Compared to ECG 09/01/2020 17:19:33 No significant changes Electronically Signed On 09-04-2020 23:10:23 CDT by Yoko Restrepo M.D. [id number]
--- NOTE | 2020-09-04 21:07 | PC.NURSE ---
New Orders; RN notified MD Dyllan on shift of patient's condition and status. Concerns voiced of patient inability to effectively clear throat, and currently has PO medications ordered to be administered including Lopressor. PO meds held as of now based on inability to swallow. New orders received to obtain EKG. Patient currently needs frequently reminding to cough and attempt to clear throat. Yaunker suction used to clear secretions frequently thus far. EKG results reported to .
--- NOTE | 2020-09-04 23:23 | PC.NURSE ---
New Orders; MD Dyllan on shift gave orders to RN to give PRN IVP Labetalol if HR increases/sustains >150
[2020-09-05] VITALS (33 sets, daily range): BP systolic 92–150; BP diastolic 67–89; PULSE 80–121; RESP 14–23; TEMP 36.8; O2SAT 90–100
[2020-09-05] MEDS: ipratropium-albuterol 3 mL Neb INHALATION ×5 (02:59→23:39)
[2020-09-05] MEDS: acetylcysteine 200 mg/mL SDV 4 mL 100 MG INHALATION ×4 (02:59→23:39)
[2020-09-05] MEDS: chlordiazePOXIDE 25 mg Capsule PO (05:05)
[2020-09-05] MEDS: vancomycin 750 MG in sodium chloride 0.9% 250 ML 250 MG IV ×2 (05:07→18:16)
[2020-09-05 05:43] LABS: Basophils # 0.1 10^3/uL (0.0-0.1); Basophils % 0.8 %; Eosinophils # 0.1 10^3/uL (0.0-0.8); Eosinophils % 1.1 %; Hemoglobin 8.5 g/dL (11.7-16.6); Lymphocytes # 1.2 10^3/uL (0.8-4.8); Lymphocytes % 13.4 %; Mean Corpuscular HGB Conc 31.5 g/dL (30.0-36.0); Mean Corpuscular Hemoglobin 33.1 pg (28.0-34.0); Mean Corpuscular Volume 105.1 fL (80-94); Mean Platelet Volume 9.4 fL (7.4-10.4); Monocytes % 11.4 %; Neutrophils # 6.57 10^3/uL (1.8-7.7); Nucleated Red Blood Cells % 0 %; Platelet Count 442 10^3/cmm (130-400); Red Blood Count 2.57 10^6/uL (4.1-5.3); Red Cell Distribution Width 18.9 % (12.1-15.1)
[2020-09-05 05:45] LABS: ABG PCO2 40.4 mmHg (35-45); ABG PH Result 7.51 (7.35-7.45); Arterial Blood Gas Hematocrit 25.8 % (42-52); Blood Gas Allen Test Pos; Blood Gas Operator Identificat JB; Blood Gas Sample Site Radial, right; Blood Gas Sample Type Arterial; HCO3 ABG 31.8 mmol/L (22-26); Oxygen Device HAG; PO2 ABG 47.7 mmHg (80.0-100.0)
[2020-09-05 05:53] LABS: Anion Gap 9.1 (5-19); Blood Urea Nitrogen 9 mg/dL (6-20); Calcium 7.5 mg/dL (8.5-10.5); Carbon Dioxide 30 mmol/L (22-29); Chloride 104 mmol/L (98-107); Glucose 85 mg/dL (65-115); Osmolality Calculated 288 mOsm/kg (285-295); Potassium 3.1 mmol/L (3.5-5.1); Sodium 140 mmol/L (136-145)
[2020-09-05 05:56] LABS: Glucose Point of Care 111 mg/dL (70-110)
--- NOTE | 2020-09-05 06:00 | XR_ITS ---
WS: [id number] Exam: XR chest 1V portable [id number] Date/Time of Exam: 09/05/2020 12:00 AM Reason For Exam: Hypoxia Comparison 09/04/2020. Increasing consolidating infiltrate in the mid and lower right lung and also the left lower lung zone since previous study. Heart size is within normal limits. Bibasal pleural effusions are noted. No pn eumothorax. The mediastinum and bony thorax are unremarkable. Monitoring leads superimpose the chest. XR/XR chest 1V portable [id number] IMPRESSION: 1. Increasing bilateral pulmonary infiltrates since previous exam. Bilateral ba mike pleural effusions.
[2020-09-05 08:05] LABS: Glucose Point of Care 94 mg/dL (70-110)
--- NOTE | 2020-09-05 09:12 | FL_ITS ---
WS: [id number] The exam was performed in conjunction with the speech therapy department. Exam: FL barium swallow modifd [id number] Date/Time of Exam: 09/05/2020 9:12 AM Reason For Exam: Other dysphagia Fluoroscopy time: 3.0 minutes The exam was performed in conjunction with the speech therapy department. The patient tolerated thin liquid, thick liquid and nectar consistency barium foodstuffs without aspi ration or penetration into the laryngeal inlet. Swallowing function at the level of the oropharynx wa s normal. FL/FL barium swallow modifd [id number] IMPRESSION: 1. The patient tolerated thin liquid, thick liquid and nectar consistency bariu m foodstuffs without aspiration or penetration. The speech therapy department will also report findings and recommendations.
[2020-09-05] MEDS: potassium chloride ER 20 mEq Tablet 40 MEQ PO (09:13)
[2020-09-05] MEDS: pantoprazole DR 40 mg Tablet PO (09:13)
[2020-09-05] MEDS: folic acid 1 mg Tablet PO (09:13)
[2020-09-05] MEDS: multivitamin therapeutic Tablet 1 TAB PO (09:13)
[2020-09-05] MEDS: predniSONE 20 mg Tablet 40 MG PO (09:13)
[2020-09-05] MEDS: thiamine 100 mg Tablet PO (09:14)
[2020-09-05] MEDS: levETIRAcetam 500 mg Tablet PO (09:14)
[2020-09-05] MEDS: metoprolol tartrate 25 mg Tablet PO (09:16)
--- NOTE | 2020-09-05 09:40 | PC.CHAP ---
Pastoral Care Encounter/Spiritual Assessment Type of Contact [] Declined courtesy car driver visit [] Patient/Family/Request visit [] Outpatient visit [] Follow-up visit [] Physician referral [] Code/Alert [x] Routine visit [] Staff referral [] Actively dying [] Patient sleeping [] Family support [] [] Out of room [] Palliative care [] [x] Receiving care in room [] Pre-surgical visit [] Trauma [] Long length of stay [x] ICU visit [] Other: Relational/Emotional Strength [] Patient feels connected with others/family/visitors/staff [] Distress [] Loneliness/isolation [] Abandonment Spirituality of Patient [] Person of Keisha [] Attends Hinduism of their Keisha [] Believes in Prayer [] Reads Bible or Alevism materials [] There are Spiritual issues to be addressed Marketing Copywriter Interventions [x] Prayer [] Active listening [] Non-anxious presence [] Spiritual/emotional support [] Crisis/trauma care [] Spiritual counseling [] Bereavement support [] Provided bereavement packet [] Provided Bible/devotional materials [] Provided toy/stuffed animal, coloring book to patient or family member [] Provided Communion [] Anointing/[place] [] Salvation [x] Completed spiritual assessment [] Other: Impact on Illness or Injury [] Angry [] Fearful [] Anxious [] Often cries [] Exhaustion [] Unable to work [] Unable to attend bahai [] Unable to walk/stand [] Unable to read [] Unable to drive [] Unable to eat/drink [] Unable to sleep [] Unable to be with family [] Patient intubated [] Other: Summary Time spent with patient
[2020-09-05 12:55] LABS: Glucose Point of Care 133 mg/dL (70-110)
[2020-09-05] MEDS: FUROsemide 10 mg/mL SDV 2mL 20 MG IVP (15:17)
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
--- NOTE | 2020-09-05 16:00 | PC.NURSE ---
Vanc trough clotted from lab draw. Nurse had to draw labs. Collected and sent down to lab. Vanc will be administered late.
[2020-09-05 17:23] LABS: Glucose Point of Care 157 mg/dL (70-110)
--- NOTE | 2020-09-05 17:26 | PC.NURSE ---
MAR other delay on Imipenem-cilastin due to nurse very busy with other patients.
[2020-09-05 17:42] LABS: Vancomycin Trough 9.2 ug/mL (10-15)
[2020-09-05 17:59] LABS: Anion Gap 17.7 (5-19); Blood Urea Nitrogen 9 mg/dL (6-20); Calcium 7.8 mg/dL (8.5-10.5); Carbon Dioxide 23 mmol/L (22-29); Chloride 101 mmol/L (98-107); Glucose 116 mg/dL (65-115); Magnesium 1.4 mg/dL (1.7-2.3); Osmolality Calculated 286 mOsm/kg (285-295); Potassium 3.7 mmol/L (3.5-5.1); Sodium 138 mmol/L (136-145)
--- NOTE | 2020-09-05 18:45 | PC.NURSE ---
NG inserted. Meds scanned. Pt pulled out NG tube while waiting on XRay. Pt adamantly refusing NG placement. Med administration undone and meds left with night nurse.
--- NOTE | 2020-09-05 19:00 | XRR_ITS ---
PROCEDURE INFORMATION: Exam: XR Chest Exam date and time: 09/05/2020 7:03 PM Age: 59 years old Clinical indication: Device placement; Ng tube; Additional info: For ng tube /tube feeding TECHNIQUE: Imaging protocol: XR of the chest. Views: 1 view. COMPARISON: CR (CHEST, ) 09/04/2020 1:39 AM FINDINGS: Tubes, catheters and devices: Enteric tube tip is beyond the proximal portion of the stomach and is not seen because it is below the inferior margin of the film. Lungs: Decreased [id number] right basilar atelectasis and/or infiltrate and/or effusion. Mild left basilar atelectasis and/or infiltrate and/or effusion. Pleural spaces: Unremarkable. No pleural effusion. No pneumothorax. Heart/Mediastinum: Unremarkable. No cardiomegaly. Bones/joints: Stable one or more healed right rib fractures. XR/XR chest 1V portable [id number] IMPRESSION: 1. Enteric tube tip is beyond the proximal portion of the stomach and is not seen because it is below the inferior margin of the film. 2. Decreased [id number] right basilar atelectasis and/or infiltrate and/or effusion. 3. Mild left basilar atelectasis and/or infiltrate and/or effusion.
--- NOTE | 2020-09-05 19:13 | P.PN_ITS ---
Subjective Subjective: Interval history: Overall he is feeling about the same. Bothered by some hardened mucus in his nose behind the nasal cannula. Denies chest pain. Vitals/I&O/Wt Last Vital Signs Temp 98.1 F 09/04/20 11:00 Pulse 91 09/05/20 15:45 Resp 16 09/05/20 15:38 BP 101/69 09/05/20 04:01 Pulse Ox 93 09/05/20 15:38 09/05/20 09/05/20 09/05/20 06:59 14:59 22:59 Intake Total 600 / 1272.994 Output Total 400 / 1050 1900 / 1900 Balance 200 / 222.994 -1900 / -1900 Weight last 48 hrs Weight 56.245 kg Weight 53.977 kg Physical Exam Const: COMMON NORMALS: no acute distress GENERAL APPEARANCE: disheveled and frail appearing OTHER: Generally weak, but appears more alert, more interactive, will be stronger today. HENMT: COMMON NORMALS: oropharynx normal Neck/C-Spine: COMMON NORMALS: no JVD Resp: COMMON NORMALS: normal respiratory effort AUSCULTATION: diminished lung sounds Cardio: COMMON NORMALS: no JVD, regular rhythm, S1 normal heart sound present, S2 normal heart sound present and No murmurs present (Cardio) RHYTHM: regular rhythm HEART SOUNDS: S1 normal heart sound present and S2 normal heart sound present GI: COMMON NORMALS: Normal to inspection, nondistended, normoactive bowel so unds present, Soft to palpation and non-tender PALPATION: Yes Soft to palpation Extremity: COMMON NORMALS: no joint enlargement and no pedal edema Neuro: COMMON NORMALS: moves all extremities Skin: COMMON NORMALS: no rashes or lesions noted GENERAL SKIN EXAM: no rashes or lesions noted Urinary Catheter Management^: Orourke: Cath Placed During This Visit: yes, but has since been removed by the nurse Reason for Continuing Indwelling Catheter: Accurate Measurement of Urinary Out put in Critically Ill Patients Urinary Catheter Date of Insertion: 09/04/20 Urinary Catheter Time of Insertion: 10:00 Date Urinary Catheter Removed: 09/03/20 Time Urinary Catheter Discontinued: 15:30 Data : 09/05/20 05:15 09/05/20 16:10 Micro: Microbiology 09/05/20 14:50 Gram Stain - Final Sputum - Expectorated Sputum 09/04/20 10:12 Blood Culture - Preliminary Blood NEGATIVE TO DATE 09/04/20 10:00 Blood Culture - Preliminary Blood NEGATIVE TO DATE A&P Assessment and plan (1) Acute respiratory failure with hypoxemia: Today there is some worsening on chest x-ray noted, however, clinically he actually appears to be showing improvement, with improvement in oxygenation. Weaning down on oxygen requirement. With slight increase in pleural effusion, some possible degree of pulmonary edema, was given small dose, 20 mg IV Lasix by pulmonology and appears to be responding well. Was assessed also by speech therapy and additionally by MBS with finding of poor awareness of food bolus presence, required extensive coaching regarding swallowing to avoid aspiration. Aspiration not noted during the study, but at high risk. High possibility that he has had 1 or several events leading to the current respiratory failure. As such for now we will place NG tube, starting tube feeds until his mental status improves, continue speech therapy assessments, and consider repeat imaging once he is doing a bit better. At this time continue antibiotics. Pulmonary toilet. Status: Acute (2) Hypotension: Hypotension so far has resolved, has not required pressors. Monitor. Flomax on hold for now. Status: Acute (3) Alcohol withdrawal seizure with delirium: CIWA scores decreasing. We will further cut down Librium dose. So far without seizure recurrence. Continue alcohol withdrawal protocol. Is also on Keppra. Status: Acute (4) AMS (altered mental status): Appears to be showing gradual improvement. Continue supportive care for alcohol withdrawal. Status: Acute Qualifiers: Altered mental status type: transient alteration of awareness Qualified Code(s): R40.4 - Transient alteration of awareness (5) Acute alcohol intoxication: Resolved Status: Acute Qualifiers: Complication of substance-induced condition: uncomplicated Qualified Code(s): F10.920 - Alcohol use, unspecified with intoxication, uncomplicated (6) Gastritis: PPI Status: Acute (7) Anemia: Appears stable posttransfusion Gastritis, duodenitis Status: Acute (8) Hypoxia: Status: Acute (9) COPD (chronic obstructive pulmonary disease): Status: Acute Qualifiers: COPD type: unspecified COPD Qualified Code(s): J44.9 - Chronic obstructive pulmonary disease, unspecified (10) Urinary retention: Orourke replaced due to hypotension, lack of urine output. Prior retention. Appears close to a liter came out after placing a Orourke. Flomax on hold for now due to hypotension. Keep Orourke in place for now. Status: Acute (11) Diarrhea: Status: Acute (12) Aspiration pneumonia: As above. Status: Acute Qualifiers: Aspiration pneumonia type: due to regurgitated food Laterality: right Lung location: lower lobe of lung Qualified Code(s): J69.0 - Pneumonitis due to inhalation of food and vomit Additional A&P Information History of alcohol abuse Polyuria: Resolved. Most likely secondary to excessive alcohol intake in the past. Attestations Medical Necessity Statement*: Continue admission for assessment management of acute respiratory failure, aspiration and aspiration pneumonia, improving encephalopathy with alcohol withdrawal. Coding Level of Care Code Acute [employer] [facility] Fwd Diagnoses Acute respiratory failure with hypoxemia J96.01 Hypotension I95.9 Alcohol withdrawal seizure with delirium F10.231; R56.9 AMS (altered mental status) R40.4 Altered mental status type: transient alteration of awareness Acute alcohol intoxication F10.920 Complication of substance-induced condition: uncomplicated Gastritis K29.70 Anemia D64.9 Hypoxia R09.02 COPD (chronic obstructive pulmonary disease) J44.9 COPD type: unspecified COPD Urinary retention R33.9 Diarrhea R19.7 Aspiration pneumonia J69.0 Aspiration pneumonia type: due to regurgitated food Laterality: right Lung location: lower lobe of lung
--- NOTE | 2020-09-05 19:30 | PC.NURSE ---
Pt pulled out NG tube after chest xray verification. Pt refuses for nurse to put another one in. Nurse explained use for it explained prior test results. Pt continues to refuse says you can not make me . RT in room and also refuses breathing treatment at this time. Pt verbalizes he is going to walk to [email or web address] and get him something to eat
[2020-09-05] MEDS: magnesium sulfate premix 4 GM/100 ML PREMIX IV (20:25)
--- NOTE | 2020-09-05 21:00 | PC.NURSE ---
Hallucinations During assessment, pt pointing out into hallway reports seeing all the little kittens . Pt oriented to self. Redirected and provided reorientation.
[2020-09-05] MEDS: pantoprazole 40 mg SDV IVP (22:01)
[2020-09-05 22:14] LABS: Glucose Point of Care 105 mg/dL (70-110)
[2020-09-06] VITALS (28 sets, daily range): BP systolic 92–151; BP diastolic 64–90; PULSE 72–99; RESP 12–23; TEMP 36.5–37.1; O2SAT 89–100
[2020-09-06] MEDS: vancomycin 750 MG in sodium chloride 0.9% 250 ML 250 MG IV ×3 (02:21→18:12)
[2020-09-06 02:35] LABS: Glucose Point of Care 84 mg/dL (70-110)
[2020-09-06] MEDS: ipratropium-albuterol 3 mL Neb INHALATION ×5 (03:22→19:37)
[2020-09-06] MEDS: acetylcysteine 200 mg/mL SDV 4 mL 100 MG INHALATION ×5 (03:22→19:38)
[2020-09-06 05:34] LABS: Basophils # 0.1 10^3/uL (0.0-0.1); Basophils % 0.7 %; Eosinophils # 0.1 10^3/uL (0.0-0.8); Eosinophils % 1.2 %; Hematocrit 26.1 % (42.0-52.0); Lymphocytes # 1.4 10^3/uL (0.8-4.8); Lymphocytes % 18.1 %; Mean Corpuscular HGB Conc 30.7 g/dL (30.0-36.0); Mean Corpuscular Hemoglobin 32.8 pg (28.0-34.0); Mean Platelet Volume 10.1 fL (7.4-10.4); Monocytes % 13.6 %; Neutrophils # 4.96 10^3/uL (1.8-7.7); Neutrophils % 65.9 %; Nucleated Red Blood Cells % 0 %; Platelet Count 463 10^3/cmm (130-400); Red Blood Count 2.44 10^6/uL (4.1-5.3); Red Cell Distribution Width 18.6 % (12.1-15.1); White Blood Count 7.5 10^3/uL (4.0-10.0)
[2020-09-06 05:58] LABS: Procalcitonin 0.12 ng/mL (0-0.5)
[2020-09-06 06:03] LABS: Anion Gap 12.9 (5-19); Blood Urea Nitrogen 7 mg/dL (6-20); Calcium 7.8 mg/dL (8.5-10.5); Carbon Dioxide 28 mmol/L (22-29); Chloride 105 mmol/L (98-107); Glucose 76 mg/dL (65-115); Magnesium 2.1 mg/dL (1.7-2.3); Osmolality Calculated 293 mOsm/kg (285-295); Sodium 143 mmol/L (136-145)
[2020-09-06 06:05] LABS: Potassium 2.9 mmol/L (3.5-5.1)
[2020-09-06] MEDS: lidocaine 1% 5 ML in potassium chloride premix 100 ML 25 ML IV (06:32)
[2020-09-06] MEDS: pantoprazole 40 mg SDV IVP ×2 (08:08→21:19)
[2020-09-06] MEDS: multivitamin therapeutic Tablet 1 TAB PO (08:08)
[2020-09-06] MEDS: metoprolol tartrate 25 mg Tablet PO (08:08)
[2020-09-06] MEDS: folic acid 1 mg Tablet PO (08:08)
[2020-09-06] MEDS: predniSONE 20 mg Tablet 40 MG PO (08:09)
--- NOTE | 2020-09-06 09:16 | PC.CHAP ---
Pastoral Care Encounter/Spiritual Assessment Type of Contact [] Declined data center operator visit [] Patient/Family/Request visit [] Outpatient visit [] Follow-up visit [] Physician referral [] Code/Alert [x] Routine visit [] Staff referral [] Actively dying [] Patient sleeping [] Family support [] [] Out of room [] Palliative care [] [] Receiving care in room [] Pre-surgical visit [] Trauma [] Long length of stay [x] ICU visit [] Other: Relational/Emotional Strength [] Patient feels connected with others/family/visitors/staff [] Distress [] Loneliness/isolation [] Abandonment Spirituality of Patient [x] Person of Keisha [] Attends Jew of their Keisha [] Believes in Prayer [] Reads Bible or Zoroastrian materials [] There are Spiritual issues to be addressed Billet Heater Operator Interventions [x] Prayer [x] Active listening [x] Non-anxious presence [x] Spiritual/emotional support [] Crisis/trauma care [] Spiritual counseling [] Bereavement support [] Provided bereavement packet [] Provided Bible/devotional materials [] Provided toy/stuffed animal, coloring book to patient or family member [] Provided Communion [] Anointing/[place] [] Salvation [x] Completed spiritual assessment [] Other: Impact on Illness or Injury [] Angry [] Fearful [] Anxious [] Often cries [] Exhaustion [] Unable to work [] Unable to attend advent [] Unable to walk/stand [] Unable to read [] Unable to drive [] Unable to eat/drink [] Unable to sleep [] Unable to be with family [] Patient intubated [] Other: Summary spend some time with patient... discussed Leonard.. patient states he is feeling better Time spent with patient 15 min
--- NOTE | 2020-09-06 12:22 | PC.NUTR ---
Nutritional reassessment: Pt with significant weight loss since admission of 9% X 7 days, from 132 to 120 lbs, assuming admit weight of 155 lbs to be inaccurate. Estimated nutritional needs recalculated using current weight. Recommend advance diet if appropriate pending further MANAGER KNOWLEDGE recommendations and/or initiate TF if pt is willing to accept. If diet resumed, recommend resuming Ensure Plus supplement as well, thickened to appropriate consistency if necessary. If TF initiated, recommend Pulmocare at 20 ml/hr, increasing by 10 ml q 8 hours, to goal rate of 55 ml/hr, with 200 mL H2O flushes q6 hours, to provide 1980 kcal, 83 g protein, and 1836 ml [address]2O. See RD assessment for further details.
--- NOTE | 2020-09-06 14:55 | P.PN_ITS ---
Subjective Subjective: Interval history: Patient seen at bedside today Labs and imaging reviewed Appears a bit more alert today Pulled off his NG tube and had possible aspiration again today morning Bedside ultrasound showed mild to moderate pleural effusion -Responded well to Lasix 20 mg yesterday and had 2.3 L urine output Potassium today morning 2.9 and received supplementation Still having tremors, less confused and still complaining of generalized body pains Medications: Reviewed: Yes Vitals/I&O/Wt Last Vital Signs Temp 98.8 F 09/06/20 14:00 Pulse 86 09/06/20 14:00 Resp 16 09/06/20 14:00 BP 151/84 09/06/20 14:00 Pulse Ox 98 09/06/20 14:00 09/05/20 09/06/20 09/06/20 22:59 06:59 14:59 Intake Total 555 / 555 350 / 905 900 / 900 Output Total 2125 / 2125 225 / 2350 625 / 625 Balance -1570 / -1570 125 / -1445 275 / 275 Weight last 48 hrs Weight 120 lb 1.6 oz Weight 124 lb Physical Exam Narrative: EXAM NARRATIVE: General: Appears drowsy, responding appropriately to questions HEENT:NCAT, PERRLA, EOMI Neck: Supple Lungs: Reduced breath sounds on right lower zone, mild wheeze on the left upper zone Heart: s1/s2, RRR Abd: soft, NT, ND, BS + Normoactive Extremities: No edema MANAGER OF PATIENT: Drowsy, 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, moving all limbs, strength 3 x 5, no gross sensory de fects SKIN: no rash Urinary Catheter Management^: [place]: Cath Placed During This Visit: yes, but has since been removed by the nurse Reason for Continuing Indwelling Catheter: Accurate Measurement of Urinary Output in Critically Ill Patients Urinary Catheter Date of Insertion: 09/04/20 Urinary Catheter Time of Insertion: 10:00 Date Urinary Catheter Removed: 09/03/20 Time Urinary Catheter Discontinued: 15:30 Data : 09/06/20 04:34 09/06/20 04:34 Other Labs: Laboratory Results WBC 7.5 10^3/uL (4.0-10.0) 09/06/20 04:34 Corrected WBC Cancelled 09/04/20 03:27 RBC 2.44 10^6/uL (4.1-5.3) L 09/06/20 04:34 Hgb 8.0 g/dL (11.7-16.6) L 09/06/20 04:34 Hct 26.1 % (42.0-52.0) L 09/06/20 04:34 MCV 107.0 fL (80-94) H 09/06/20 04:34 MCH 32.8 pg (28.0-34.0) 09/06/20 04:34 MCHC 30.7 g/dL (30.0-36.0) 09/06/20 04:34 RDW 18.6 % (12.1-15.1) H 09/06/20 04:34 Plt Count 463 10^3/cmm (130-400) H 09/06/20 04:34 MPV 10.1 fL (7.4-10.4) 09/06/20 04:34 Gran % Cancelled 09/04/20 03:27 Neut % (Auto) 65.9 % 09/06/20 04:34 Lymph % (Auto) 18.1 % 09/06/20 04:34 [place] % (Auto) 13.6 % 09/06/20 04:34 Eos % (Auto) 1.2 % 09/06/20 04:34 Baso % (Auto) 0.7 % 09/06/20 04:34 Neut # (Auto) 4.96 10^3/uL (1.8-7.7) 09/06/20 04:34 Lymph # (Auto) 1.4 10^3/uL (0.8-4.8) 09/06/20 04:34 [place] # (Auto) 1.0 10^3/uL (0.2-0.9) H 09/06/20 04:34 Eos # (Auto) 0.1 10^3/uL (0.0-0.8) 09/06/20 04:34 Baso # (Auto) 0.1 10^3/uL (0.0-0.1) 09/06/20 04:34 Absolute Gran (auto) Cancelled 09/04/20 03:27 Nucleated RBC % (auto) 0 % 09/06/20 04:34 Nucleated RBCs # 0.0 /100WBC 09/06/20 04:34 PT 12.70 SECONDS (12.1-14.9) 08/28/20 11:00 INR 0.93 (0.8-1.2) 08/28/20 11:00 Specimen Type Arterial 09/05/20 05:31 Sample Site Radial, right 09/05/20 05:31 ABG pH 7.51 (7.35-7.45) H 09/05/20 05:31 ABG pCO2 40.4 mmHg (35-45) 09/05/20 05:31 ABG pO2 47.7 mmHg (80.0-100.0) L 09/05/20 05:31 ABG HCO3 31.8 mmol/L (22-26) H 09/05/20 05:31 ABG O2 Saturation 89.4 08/28/20 10:40 ABG Base Excess 8.0 mmol/L (-2.0-2.0) H 09/05/20 05:31 Vasyl Test Pos 09/05/20 05:31 A-a O2 Gradient 5.6 mmHg (5-10) 08/28/20 10:40 Hematocrit 25.8 % (42-52) L 09/05/20 05:31 Hgb O2 Saturation 86.6 % (95-100) L 08/28/20 10:40 Carboxyhemoglobin 2.4 %THgb (0.4-20.1) 08/28/20 10:40 Methemoglobin 0.8 % (0.4-1.5) 08/28/20 10:40 Total Hemoglobin 8.9 g/dL (14-18) L 08/28/20 10:40 Sodium 137.0 mmol/L (131-143) 08/28/20 10:40 Potassium 3.0 mmol/L (3.5-5.0) L 08/28/20 10:40 Glucose 137.0 mg/dL (70-115) H 08/28/20 10:40 Ionized Calcium 1.1 mmol/L (1.1-1.4) 08/28/20 10:40 O2 Delivery Device Hag 09/05/20 05:31 O2 Liters/Min 35.0 % 09/05/20 05:31 FiO2 40.0 % 09/05/20 05:31 Vp Treasurer ID Hieu 09/05/20 05:31 Sodium 143 mmol/L (136-145) 09/06/20 04:34 Potassium 2.9 mmol/L (3.5-5.1) L D 09/06/20 04:34 Chloride 105 mmol/L (98-107) 09/06/20 04:34 Carbon Dioxide 28 mmol/L (22-29) 09/06/20 04:34 Anion Gap 12.9 (5-19) 09/06/20 04:34 BUN 7 mg/dL (6-20) 09/06/20 04:34 Creatinine 0.3 mg/dL (0.7-1.2) L 09/06/20 04:34 GFR Calculation 309.0 mL/min (90-130) H 09/06/20 04:34 Glucose 76 mg/dL (65-115) 09/06/20 04:34 POC Glucose 84 mg/dL (70-110) 09/06/20 02:20 Estimat Average Glucose 80 08/29/20 04:45 Hemoglobin A1c 4.4 % (4.0-6.0) 08/29/20 04:45 Calculated Osmolality 293 mOsm/kg (285-295) 09/06/20 04:34 Lactic Acid 3.8 mmol/L (0.5-2.2) H 08/28/20 11:00 Lactic Acid (Sepsis) 2.2 mmol/L (0.5-2.2) 08/28/20 13:58 Calcium 7.8 mg/dL (8.5-10.5) L 09/06/20 04:34 Phosphorus 3.9 mg/dL (2.5-4.5) 08/29/20 04:45 Magnesium 2.1 mg/dL (1.7-2.3) 09/06/20 04:34 Iron 166 ug/dL (59-158) H 08/28/20 11:00 TIBC 182.84252 mcg/dl 08/28/20 11:00 % Saturation 90.0 % (20-50) H 08/28/20 11:00 Unsat Iron Binding < 17 ug/dL (112-347) L 08/28/20 11:00 Ferritin 2830 ng/mL (30-400) H 08/28/20 11:00 Total Bilirubin 0.5 mg/dL (0.15-1.2) 09/04/20 03:27 AST 33 U/L (0-40) 09/04/20 03:27 ALT 22 U/L (0-41) 09/04/20 03:27 Alkaline Phosphatase 75 IU/L (40-130) 09/04/20 03:27 Ammonia 19 umol/L (16-60) 08/28/20 11:00 Creatine Kinase 190 U/L (39-308) 08/28/20 11:00 Troponin T Baseline 21 ng/L (0-15) H 08/28/20 11:00 Troponin T 120 Minute 17.79 ng/L (0-15) H 08/28/20 13:00 Delta Troponin T -3.21 ABS# (0-10) L 08/28/20 13:00 Troponin T Hi Sens 6Hr 15.12 ng/L (0-15) H 08/28/20 17:39 Troponin T Hi Sens 6Hr Delta -5.88 ng/L (0-12) L 08/28/20 17:39 C-Reactive Protein 10.1 mg/L (0.0-4.9) H 08/28/20 11:00 NT-Pro-B Natriuret Pep 1372 pg/mL (0-125) H 09/01/20 23:45 Total Protein 5.4 g/dL (6.6-8.7) L 09/04/20 03:27 Albumin 3.1 g/dL (3.5-5.2) L 09/04/20 03:27 Globulin 2.3 g/dL (1.3-4.6) 09/04/20 03:27 Vitamin B12 788 pg/mL (232-1245) 08/28/20 11:00 Folate 2.0 ng/mL (4.5-32.2) L 08/28/20 11:00 Procalcitonin 0.12 ng/mL (0-0.5) 09/06/20 04:34 TSH 2.34 uIU/mL (0.27-4.20) 08/28/20 11:00 Urine Color Yellow (Yellow) 09/04/20 11:00 Urine Appearance Clear (CLEAR) 09/04/20 11:00 Urine pH 6.5 (5-7) 09/04/20 11:00 Ur Specific [place] 1.010 (1.005-1.030) 09/04/20 11:00 Urine Protein Neg (Negative) 09/04/20 11:00 Urine Glucose (UA) 1+ (Normal) 09/04/20 11:00 Urine Ketones Negative (Negative) 09/04/20 11:00 Urine Blood Neg (Negative) 09/04/20 11:00 Urine Nitrate Negative (Negative) 09/04/20 11:00 Urine Bilirubin Neg (Negative) 09/04/20 11:00 Urine Urobilinogen 1 mg/dL (Negative) H 09/04/20 11:00 Ur Leukocyte Esterase Negative (Negative) 09/04/20 11:00 Urine RBC 0-4 /hpf (0-2) H 08/28/20 12:19 Urine WBC None /hpf (0-5) 08/28/20 12:19 Ur Squamous Epith Cells 0-4 /hpf (0-5) H 08/28/20 12:19 Amorphous Sediment Not Reportable 08/28/20 12:19 Urine Bacteria Trace /hpf (NONE) 08/28/20 12:19 Hyaline Casts 25-40 /lpf H 08/28/20 12:19 Urine Mucus 2+ /hpf 08/28/20 12:19 Urine Osmolality 593 mOsm/kg (50-1200) 09/01/20 15:15 Ur Random Sodium 162 mmol/L 09/01/20 15:15 Ur Random Potassium 66 mmol/L 09/01/20 15:15 Ur Random Chloride 241 mmol/L 09/01/20 15:15 Vancomycin Trough 9.2 ug/mL (10-15) L 09/05/20 16:10 Urine Opiates Screen Negative ng/mL (Negative) 08/28/20 12:19 Ur Barbiturates Screen Negative ng/mL (Negative) 08/28/20 12:19 Levetiracetam 24.3 mcg/mL 08/31/20 04:35 Ur Phencyclidine Scrn Negative ng/mL (Negative) 08/28/20 12:19 Ur Amphetamines Screen Negative ng/mL (Negative) 08/28/20 12:19 U Benzodiazepines Scrn Negative ng/mL (Negative) 08/28/20 12:19 Urine Cocaine Screen Negative ng/mL (Negative) 08/28/20 12:19 U Marijuana (THC) Screen Negative ng/mL (Negative) 08/28/20 12:19 Ethyl Alcohol 314 mg/dL (0-10) H* 08/28/20 11:00 H. pylori IgG Antibody Negative (Negative) 09/04/20 03:27 SARS-CoV-2 Ag (Rapid) Negative (Negative) 09/04/20 11:00 Blood Type O Positive 08/29/20 12:12 Rho(D) Type Positive / 4+ 08/29/20 12:12 Antibody Screen Negative 08/29/20 12:12 Crossmatch See Detail 08/29/20 12:[address] 08/28/20 10:15 IMPRESSION: 1. Small amount of subcutaneous edema overlying the distal sacrum with a tiny amount of induration extending along the upper gluteal cleft and perirectal soft tissues. No evidence of drainable abscess or fluid collection. No definite evidence of perirectal fistula. 2. Urine distended bladder. 3. Rectal constipation. 4. Diffuse fatty infiltration of the liver. Notified KYLIE Newton at 08/28/2020 12:03 PM. Gallbladder Ultrasound 08/28/20 12:01 IMPRESSION: 1. Hepatomegaly with diffuse fatty infiltration. 2. Tiny gallstones or sludge in the gallbladder. No gallbladder wall thickening or pericholecystic fluid. 3. No hydronephrosis in right kidney. Abdomen/Pelvis CT 08/28/20 15:47 IMPRESSION: 1. Patchy consolidation in the left lower lobe concerning for pneumonia. 2. Fatty infiltration of the liver. 3. Large formed stool in the rectum. 4. Fat containing umbilical hernia. COMMENTS: Consistent with the [employer]'s Incidental Findings Committee white paper (J Am Ronit Radiol 2018): Any incidental renal lesion less than 1 cm or classified as too small to characterize, or any incidental cystic renal lesion characterized as simple-appearing, is likely benign. No follow-up imaging is recommended for these lesions per consensus recommendations based on imaging criteria. Radiation Dose CTDIVOL = (mGy): DLP = 714.84 (mGy-cm) Chest CT 08/29/20 10:50 IMPRESSION: 1. Patchy infiltrate in left lower lobe with small left pleural effusion. P atchy infiltrates in the left lower lobe are similar to previous with slight improvement. Recommend follow-up to resolution. Findings suspicious for pneumonia. 2. Small left pleural effusion is new from previous. 3. Moderate chronic emphysematous changes. 4. Multiple subacute and chronic rib fractures previously described. 5. No mediastinal or hilar lymphadenopathy. Head CT 08/29/20 10:50 IMPRESSION: 1. No evidence of intracranial hemorrhage or mass effect. 2. Moderate small vessel changes moderate parenchymal volume loss. 3. No abnormal intracranial enhancement. 4. No acute intracranial findings. Modified Barium Swallow 09/05/20 09:12 IMPRESSION: 1. The patient tolerated thin liquid, thick liquid and nectar consistency barium foodstuffs without aspiration or penetration. The speech therapy department will also report findings and recommendations. Chest X-Ray 09/05/20 19:00 IMPRESSION: 1. Enteric tube tip is beyond the proximal portion of the stomach and is not seen because it is below the inferior margin of the film. 2. Decreased maen-lt-yfalemwm right basilar atelectasis and/or infiltrate and/or effusion. 3. Mild left basilar atelectasis and/or infiltrate and/or effusion. Micro: Microbiology 09/05/20 14:50 Gram Stain - Final Sputum - Expectorated Sputum Sputum Culture - Preliminary Gram Negative Rods 09/04/20 10:12 Blood Culture - Preliminary Blood NEGATIVE TO DATE 09/04/20 10:00 Blood Culture - Preliminary Blood NEGATIVE TO DATE A&P Assessment and plan (1) AMS (altered mental status): Status: Acute Qualifiers: Altered mental status type: transient alteration of awareness Qualified Code(s): R40.4 - Transient alteration of awareness (2) Alcohol withdrawal seizure with delirium: Status: Acute (3) Alcoholism: Status: Acute (4) Hypoxia: Status: Acute (5) COPD (chronic obstructive pulmonary disease): Status: Acute Qualifiers: COPD type: unspecified COPD Qualified Code(s): J44.9 - Chronic obstructive pulmonary disease, unspecified (6) Aspiration pneumonia: Status: Acute Qualifiers: Aspiration pneumonia type: due to regurgitated food Laterality: right Lung location: lower lobe of lung Qualified Code(s): J69.0 - Pneumonitis due to inhalation of food and vomit (7) At high risk for aspiration: Status: Acute (8) Melena: Status: Acute (9) Seizure: Status: Acute (10) Sepsis: Status: Acute Qualifiers: Sepsis acute organ dysfunction status: without acute organ dysfunction Sepsis type: sepsis due to unspecified organism Qualified Code(s): A41.9 - Sepsis, unspecified organism (11) Unspecified pleural effusion: Status: Acute # Altered mental status due to alcohol delirium & possible sepsis due to aspiration pneumonia # Acute hypoxic respiratiory failure due to COPD exacerbation and aspiration pneumonia # At high risk for aspiration and intubation # Drop in H & H - S/P 1 Unit prbc - secondary to gastritis - Currently on room air- saturating 95% - Hemodynamically stable - CXR: Decreased [id number] right basilar atelectasis and/or infiltrate; and/or effusion. Mild left basilar atelectasis and/or infiltrate and/or effusion. -Bedside USG today: right pleural effusion - not enough pocket to safely tap -Hemodynamically stable -Monitor bp and if MAP < 65 ; Recommended to start Levophed -Echo 09/02/20: Poor ultrasonic windows. LV systolic function is normal with EF of 60-65%. Valvular structures not well visualized but no gross abnormalities. No comparison studies are available. -Currently on Vancomycin & Imipenam to cover gram negative and anerobes ; sputum cultures positive for gram-negative rods, identification and sensitivity pending; send for MRSA nares - Continue Scheduled Duoneb nebulizations and prednisone 20 mg daily - CIWA score: Visible Tremors at rest - 7 , mild nausea - 1, mildy anxious - 0, moderate fidgety & restlessness - 3 , mild Headache - 2 = 13 - On tapering doses of PO librium; - H & H - stable after 1 unit prbc ; on pantoprazole for gastritis - Keppra 500 mg PO bid for seizures - MVT/FA/Thaimine - Monitor electrolytes and supplement to keep K > 4 and Mg > 2 - Barium swallow 09/06/2020 reported as the patient tolerated thin liquid, thick liquid and nectar consistency barium foodstuffs without aspiration or penetration. But speech therapy assessment is that his cognitive status is impr oving and already pulled to NG placements and he was noted to demonstrate significant tongue pumping in an effort to propel the bolus posteriorly. Even with half teaspoon of pudding patient demonstrated difficulty breathing and suctioning was attempted however patient refused -Patient is high risk of aspiration-needs PEG tube but is refusing and has history of PEG tube placed 18 months ago which was taken out later - Continue clinical monitoring for delirium tremens & respiratory status Recommendations conveyed to Hospitalist , RN covering the patient. Attestations Medical Necessity Statement*: Continue admission for assessment management of acute respiratory failure with hypoxia, hypotension, aspiration pneumonia, urinary retention. Time Spent in Patient Care: Greater than 35 minutes (>than 50% of time spent in counselling and/or direct pt care on unit) . The high probability of a clinically significant, sudden or life threatening deterioration of the patient's respiratory, cardiac, neurological, system(s) required my full and d irect attention, intervention and personal management. The critical care time is as shown. 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 Die Designer for Chg Fwd Patient Type Established History Comprehensive Exam Comprehensive Medical Decision Making High Complexity Diagnoses AMS (altered mental status) R40.4 Altered mental status type: transient alteration of awareness Alcohol withdrawal seizure with delirium F10.231; R56.9 Alcoholism F10.20 Hypoxia R09.02 COPD (chronic obstructive pulmonary disease) J44.9 COPD type: unspecified COPD Aspiration pneumonia J69.0 Aspiration pneumonia type: due to regurgitated food Laterality: right Lung location: lower lobe of lung At high risk for aspiration Z91.89 Melena K92.1 Seizure R56.9 Sepsis A41.9 Sepsis acute organ dysfunction status: without acute organ dysfunction Sepsis type: sepsis due to unspecified organism Unspecified pleural effusion J90 Time Spent (min) 45
[2020-09-06 17:25] LABS: Amylase 39 U/L (28-100); Anion Gap 15.6 (5-19); Blood Urea Nitrogen 6 mg/dL (6-20); Calcium 8.1 mg/dL (8.5-10.5); Carbon Dioxide 27 mmol/L (22-29); Chloride 102 mmol/L (98-107); Glucose 97 mg/dL (65-115); Lipase 10 U/L (13-60); Magnesium 1.9 mg/dL (1.7-2.3); Osmolality Calculated 290 mOsm/kg (285-295); Potassium 3.6 mmol/L (3.5-5.1); Sodium 141 mmol/L (136-145)
[2020-09-06 17:51] LABS: Vancomycin Trough 13.4 ug/mL (10-15)
[2020-09-06 17:54] LABS: Glucose Point of Care 111 mg/dL (70-110)
--- NOTE | 2020-09-06 18:35 | P.PN_ITS ---
Subjective Subjective: Interval history: He subjectively reports feeling better today, ostomy if he can see improved brightness in his eyes . Still noted confused by nursing staff. Did not do well during speech therapy reevaluation today with aspiration. Declines consideration of replacement of NG tube for tube feeding. Request for some coffee with cream and sugar. Vitals/I&O/Wt Last Vital Signs Temp 98.8 F 09/06/20 18:00 Pulse 82 09/06/20 18:00 Resp 16 09/06/20 18:00 BP 151/84 09/06/20 18:00 Pulse Ox 93 09/06/20 18:00 09/06/20 09/06/20 09/06/20 06:59 14:59 22:59 Intake Total 350 / 905 900 / 900 Output Total 225 / 2350 625 / 625 1000 / 1625 Balance 125 / -1445 275 / 275 -1000 / -725 Weight last 48 hrs Weight 54.476 kg Weight 56.245 kg Physical Exam Const: COMMON NORMALS: no acute distress GENERAL APPEARANCE: disheveled and frail appearing OTHER: More awake and alert. HENMT: COMMON NORMALS: oropharynx normal Neck/C-Spine: COMMON NORMALS: no JVD Resp: COMMON NORMALS: normal respiratory effort AUSCULTATION: diminished lung sounds Cardio: COMMON NORMALS: no JVD, regular rhythm, S1 normal heart sound present, S2 normal heart sound present and No murmurs present (Cardio) RHYTHM: regular rhythm HEART SOUNDS: S1 normal heart sound present and S2 normal heart sound present GI: COMMON NORMALS: Normal to inspection, nondistended, normoactive bowel sounds present, Soft to palpation and non-tender PALPATION: Yes Soft to palpation Extremity: COMMON NORMALS: no joint enlargement and no pedal edema Neuro: COMMON NORMALS: moves all extremities Skin: COMMON NORMALS: no rashes or lesions noted GENERAL SKIN EXAM: no rashes or lesions noted Urinary Catheter Management^: Orourke: Cath Placed During This Visit: yes, but has since been removed by the nurse Reason for Continuing Indwelling Catheter: Accurate Measurement of Urinary Output in Critically Ill Patients Urinary Catheter Date of Insertion: 09/04/20 Urinary Catheter Time of Insertion: 10:00 Date Urinary Catheter Removed: 09/03/20 Time Urinary Catheter Discontinued: 15:30 Data : 09/06/20 04:34 09/06/20 16:54 Micro: Microbiology 09/05/20 14:50 Gram Stain - Final Sputum - Expectorated Sputum Sputum Culture - Preliminary Gram Negative Rods A&P Assessment and plan (1) Acute respiratory failure with hypoxemia: Was doing much better in terms of oxygenation this morning, off oxygen and on room air, however, still did not do well with speech therapy, without suppuration. Overall does appear more alert and interactive. However, still n oted confused, with possibly some hallucinations prescription with nursing staff. Appears to still have persistent DT. He had pulled out his NG tube, and absolutely declined to have it replaced. Dis cussing today again does not want it back in. At this time as he does appear to show some slow but positive improvement in mental status, continue speech therapy reassessments. Appears replacement of NG tube or placement of PEG tube at this time is not an option. Consideration may be given to TPN in case there is delay in resumption of oral intake. Otherwise continue supportive care for severe alcohol withdrawal. Continue treatment of aspiration pneumonia. Gram-negative rods in sputum. Co ntinue IV antibiotics. Aspiration precautions. Discussed with pulmonology, since she had a very good response to Lasix yesterday, they will repeat additional small dose today. Status: Acute (2) Hypotension: Resolved. Resume Flomax if will be able to tolerate oral intake. Hypotension so far has resolved, has not required pressors. Monitor. Status: Acute (3) Alcohol withdrawal seizure with delirium: Continue Librium for now due to persistent DT. Appears to be responding positively. So far without seizure recurrence. Continue alcohol withdrawal protocol. Quin. Status: Acute (4) AMS (altered mental status): Very slow improvement. Persistent DTs, severe alcohol withdrawal. Continue supportive care for alcohol withdrawal. Status: Acute Qualifiers: Altered mental status type: transient alteration of awareness Qualified Code(s): R40.4 - Transient alteration of awareness (5) Acute alcohol intoxication: Resolved Status: Acute Qualifiers: Complication of substance-induced condition: uncomplicated Qualified Code(s): F10.920 - Alcohol use, unspecified with intoxication, uncomplicated (6) Gastritis: PPI Status: Acute (7) Anemia: Appears stable posttransfusion Gastritis, duodenitis Status: Acute (8) Hypoxia: Status: Acute (9) COPD (chronic obstructive pulmonary disease): Status: Acute Qualifiers: COPD type: unspecified COPD Qualified Code(s): J44.9 - Chronic obstructive pulmonary disease, unspecified (10) Urinary retention: Orourke replaced due to hypotension, lack of urine output. Prior retention. Appears close to a liter came out after placing a Orourke. Flomax on hold for now due to hypotension. Keep Orourke in place for now. Status: Acute (11) Diarrhea: Status: Acute (12) Aspiration pneumonia: As above. Status: Acute Qualifiers: Aspiration pneumonia type: due to regurgitated food Laterality: right Lung location: lower lobe of lung Qualified Code(s): J69.0 - Pneumonitis due to inhalation of food and vomit Additional A&P Information History of alcohol abuse Polyuria: Resolved. Most likely secondary to excessive alcohol intake in the past. Attestations Medical Necessity Statement*: Continue admission for assessment management of respiratory failure, aspiration pneumonia, severe alcohol withdrawal, severe dysphagia with risk of aspiration. Coding Level of Care Code Acute International Marketing Intern for [facility] Diagnoses Acute respiratory failure with hypoxemia J96.01 Hypotension I95.9 Alcohol withdrawal seizure with delirium F10.231; R56.9 AMS (altered mental status) R40.4 Altered mental status type: transient alteration of awareness Acute alcohol intoxication F10.920 Complication of substance-induced condition: uncomplicated Gastritis K29.70 Anemia D64.9 Hypoxia R09.02 COPD (chronic obstructive pulmonary disease) J44.9 COPD type: unspecified COPD Urinary retention R33.9 Diarrhea R19.7 Aspiration pneumonia J69.0 Aspiration pneumonia type: due to regurgitated food Laterality: right Lung location: lower lobe of lung
[2020-09-06 21:43] LABS: Glucose Point of Care 86 mg/dL (70-110)
[2020-09-07] VITALS (21 sets, daily range): BP systolic 92–149; BP diastolic 59–99; PULSE 74–132; RESP 14–23; TEMP 36.6–36.7; O2SAT 90–99
[2020-09-07] MEDS: vancomycin 750 MG in sodium chloride 0.9% 250 ML 166 MG IV (01:36)
--- NOTE | 2020-09-07 01:43 | PC.NURSE ---
Continues to have hallucinations throughout night. Oriented to self only. Reorientation and redirection ineffective. Attempting to get out of bed and go down yonder . Pt restless and agitated, argumentative and wanting food, a cigarette, and alcohol. Continues to refuse NG tube placement. Will not leave monitor on, continuously removing leads, probes, and oxygen. Tugging at alvarenga catheter. Dr. Mijares notified by phone concerns of patient not receiving librium due to failed swallowed study and no NG tube to administer medications. Orders received to give 1mg Ativan IV X 1. Bed alarm on, bed in lowest position. Will continue to monitor.
[2020-09-07] MEDS: LORazepam 2 mg/mL INJ 1 mL 1 MG IVP (01:54)
[2020-09-07] MEDS: ipratropium-albuterol 3 mL Neb INHALATION ×4 (03:42→20:21)
[2020-09-07] MEDS: acetylcysteine 200 mg/mL SDV 4 mL 100 MG INHALATION ×4 (03:42→20:21)
[2020-09-07 05:25] LABS: Glucose Point of Care 78 mg/dL (70-110)
[2020-09-07 05:27] LABS: Basophils % 0.5 %; Eosinophils # 0.1 10^3/uL (0.0-0.8); Eosinophils % 0.7 %; Hematocrit 26.2 % (42.0-52.0); Hemoglobin 8.1 g/dL (11.7-16.6); Lymphocytes # 1.1 10^3/uL (0.8-4.8); Lymphocytes % 13.7 %; Mean Corpuscular HGB Conc 30.9 g/dL (30.0-36.0); Mean Corpuscular Hemoglobin 32.4 pg (28.0-34.0); Mean Corpuscular Volume 104.8 fL (80-94); Mean Platelet Volume 9.9 fL (7.4-10.4); Monocytes # 0.9 10^3/uL (0.2-0.9); Monocytes % 10.8 %; Neutrophils # 6.01 10^3/uL (1.8-7.7); Neutrophils % 73.8 %; Nucleated Red Blood Cells % 0 %; Platelet Count 546 10^3/cmm (130-400); Red Cell Distribution Width 17.8 % (12.1-15.1); White Blood Count 8.2 10^3/uL (4.0-10.0)
[2020-09-07 06:02] LABS: Anion Gap 14.2 (5-19); Blood Urea Nitrogen 4 mg/dL (6-20); Calcium 7.6 mg/dL (8.5-10.5); Carbon Dioxide 27 mmol/L (22-29); Chloride 103 mmol/L (98-107); Glomerular Filtration Rate 493.4 mL/min (90-130); Glucose 66 mg/dL (65-115); Osmolality Calculated 287 mOsm/kg (285-295); Potassium 3.2 mmol/L (3.5-5.1); Sodium 141 mmol/L (136-145)
[2020-09-07] MEDS: pantoprazole 40 mg SDV IVP ×2 (09:07→20:32)
[2020-09-07] MEDS: folic acid 1 mg Tablet PO (09:08)
[2020-09-07] MEDS: predniSONE 20 mg Tablet PO (09:09)
[2020-09-07] MEDS: multivitamin therapeutic Tablet 1 TAB PO (09:09)
[2020-09-07] MEDS: tamsulosin 0.4 mg Capsule PO (09:09)
[2020-09-07] MEDS: metoprolol tartrate 25 mg Tablet PO ×2 (09:10→20:32)
[2020-09-07] MEDS: vancomycin 750 MG in sodium chloride 0.9% 250 ML 250 MG IV (09:59)
[2020-09-07 12:28] LABS: Glucose Point of Care 95 mg/dL (70-110)
--- NOTE | 2020-09-07 13:13 | P.PN_ITS ---
Subjective Subjective: Interval history: Patient seen at bedside -Sitting out of bed to chair -Slight improvement in his mentation and alertness but still confused at times -Labs and imaging reviewed -Potassium 3.2 and supplemented --800 cc in last 24 hours -Complain pain all over the body, denied any hallucinations, tremors still present Medications: Reviewed: Yes Vitals/I&O/Wt Last Vital Signs Temp 97.8 F 09/07/20 12:00 Pulse 100 09/07/20 12:00 Resp 18 09/07/20 12:00 BP 131/80 09/07/20 12:00 Pulse Ox 94 09/07/20 12:00 09/06/20 09/07/20 09/07/20 22:59 06:59 14:59 Intake Total 455 / 1355 350 / 1705 475 / 475 Output Total 1250 / 1875 650 / 2525 700 / 700 Balance -795 / -520 -300 / -820 -225 / -225 Weight last 48 hrs Weight 119 lb Weight 120 lb 1.6 oz Physical Exam Narrative: EXAM NARRATIVE: General: Appears drowsy, responding appropriately to questions HEENT:NCAT, PERRLA, EOMI Neck: Supple Lungs: Improving breath sounds on the right lower lobe Heart: s1/s2, RRR Abd: soft, NT, ND, BS + Normoactive Extremities: No edema SUPERVISOR FINE GRADING: Drowsy, 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, moving all limbs, strength 4 x 5, no gross sensory defects, sitting out of bed to chair SKIN: no rash Urinary Catheter Management^: Orourke: Cath Placed During This Visit: yes, but has since been removed by the nurse Reason for Continuing Indwelling Catheter: Accurate Measurement of Urinary Output in Critically Ill Patients Urinary Catheter Date of Insertion: 09/04/20 Urinary Catheter Time of Insertion: 10:00 Date Urinary Catheter Removed: 09/03/20 Time Urinary Catheter Discontinued: 15:30 Data : 09/07/20 04:02 09/07/20 04:02 Micro: Microbiology 09/06/20 15:40 MRSA Culture - Final Nose 09/05/20 14:50 Gram Stain - Final Sputum - Expectorated Sputum Sputum Culture - Final Proteus mirabilis A&P Assessment and plan (1) AMS (altered mental status): Status: Acute Qualifiers: Altered mental status type: transient alteration of awareness Qualified Code(s): R40.4 - Transient alteration of awareness (2) Alcohol withdrawal seizure with delirium: Status: Acute (3) Alcoholism: Status: Acute (4) Hypoxia: Status: Acute (5) COPD (chronic obstructive pulmonary disease): Status: Acute Qualifiers: COPD type: unspecified COPD Qualified Code(s): J44.9 - Chronic obstructive pulmonary disease, unspecified (6) Aspiration pneumonia: Status: Acute Qualifiers: Aspiration pneumonia type: due to regurgitated food Laterality: right Lung location: lower lobe of lung Qualified Code(s): J69.0 - Pneumonitis due to inhalation of food and vomit (7) At high risk for aspiration: Status: Acute (8) Melena: Status: Acute (9) Seizure: Status: Acute (10) Sepsis: Status: Acute Qualifiers: Sepsis acute organ dysfunction status: without acute organ dysfunction Sepsis type: sepsis due to unspecified organism Qualified Code(s): A41.9 - Sepsis, unspecified organism (11) Unspecified pleural effusion: Status: Acute # Altered mental status due to alcohol delirium & possible sepsis due to aspiration pneumonia # Acute hypoxic respiratiory failure due to COPD exacerbation and aspiration pneumonia # At high risk for aspiration and intubation # Drop in H & H - S/P 1 Unit prbc - secondary to gastritis - Currently on room air- saturating 95% and sitting out of bed to chair - Hemodynamically stable - CXR: Decreased [id number] right basilar atelectasis and/or infiltrate; and/or effusion. Mild left basilar atelectasis and/or infiltrate and/or effusion. -Bedside USG today: right pleural effusion -appeared improving-not enough pocket to safely tap -Hemodynamically stable -Echo 09/02/20: Poor ultrasonic windows. LV systolic function is normal with EF of 60-65%. Valvular structures not well visualized but no gross abnormalities. No comparison studies are available. -Currently on Vancomycin & Imipenam to cover gram negative and anerobes ; sputum cultures positive for pansensitive Proteus mirabilis, MRSA nares negative -DC vancomycin and change imipenem to levofloxacin - Continue Scheduled Duoneb nebulizations and prednisone 20 mg daily - CIWA score: Visible Tremors at rest -5, mild nausea -0, mildy anxious - 0, moderate fidgety & restlessness -2, mild Headache - 2 = 9 - On tapering doses of PO librium; Ativan 2 mg every every 8 hours - H & H - stable after 1 unit prbc ; on pantoprazole for gastritis - Keppra 500 mg PO bid for seizures - MVT/FA/Thaimine - Monitor electrolytes and supplement to keep K > 4 and Mg > 2 - Barium swallow 09/06/2020 reported as the patient tolerated thin liquid, thick liquid and nectar consistency barium foodstuffs without aspiration or penetration. But speech therapy assessment is that his cognitive status is improving and already pulled to NG placements and he was noted to demonstrate significant tongue pumping in an effort to propel the bolus posteriorly. Even with half teaspoon of pudding patient demonstrated difficulty breathing and suctioning was attempted however patient refused -Patient is high risk of aspiration-needs PEG tube but is refusing and has history of PEG tube placed 18 months ago which was taken out later -Okay to do soft food with aspiration precautions - Continue clinical monitoring for delirium tremens & respiratory status Recommendations conveyed to Hospitalist , RN covering the patient. Attestations Medical Necessity Statement*: Continue admission for assessment management of acute respiratory failure with hypoxia, hypotension, aspiration pneumonia, urinary retention. Time Spent in Patient Care: Greater than 35 minutes (>than 50% of time spent in counselling and/or direct pt care on unit) . The high probability of a clinically significant, sudden or life threatening deterioration of the patient's respiratory, cardiac, neurological, system(s) required my full and direct attention, intervention and personal management. The critical care time is as shown. This time is in addition to time spent performing any reported procedures but includes the following: [x] Data and vital sign review and interpretation [x] Patient assessment, examination and intervention [x] Documentation [x] Medication orders and management Critical Care Time: Critical Care Time (min): 45 Coding Level of Care Code Established Pt Acute [employer]yglo Technician for [facility] Patient Type Established History Comprehensive Exam Comprehensive Medical Decision Making High Complexity Diagnoses AMS (altered mental status) R40.4 Altered mental status type: transient alteration of awareness Alcohol withdrawal seizure with delirium F10.231; R56.9 Alcoholism F10.20 Hypoxia R09.02 COPD (chronic obstructive pulmonary disease) J44.9 COPD type: unspecified COPD Aspiration pneumonia J69.0 Aspiration pneumonia type: due to regurgitated food Laterality: right Lung location: lower lobe of lung At high risk for aspiration Z91.89 Melena K92.1 Seizure R56.9 Sepsis A41.9 Sepsis acute organ dysfunction status: without acute organ dysfunction Sepsis type: sepsis due to unspecified organism Unspecified pleural effusion J90 Time Spent (min) 45
[2020-09-07] MEDS: levofloxacin-dextrose 5 % 750 MG/150 ML PREMIX 100 MG IV (14:30)
[2020-09-07] MEDS: chlordiazePOXIDE 10 mg Capsule PO (18:08)
--- NOTE | 2020-09-07 20:00 | PC.NURSE ---
Assuming Care; RN found patient had removed leads, electrodes, BP cuff, and other monitoring devices. Patient rambling and hard to understand verbally. RN educated on need for these to be kept on for assessment and monitoring, and placed devices back on patient. Patient immediately removed these, once again. VS obtained while at bedside included; 101-120 HR SR/ST, 98.0 temp, 94% SPO2, and BP 116/83. Patient asked RN to phone his brother, and began rambling off random number sequences that were inconclusive of being a designated phone number. Patient's brother Tom had called the unit about this time, wishing to speak with RN and with his brother. RN updated family on patient's condition and current plan of care. All questioned answered. Brother Tom had given information into patient's mentality, and states that patient will return to a more baseline normal and be somewhat more alert when alcohol has left his system. He also stated that this typically can take a couple of days for baseline to return. History given stating patient typically drinks a 5th of whiskey and/or Vodka with multiple beers each day. And that the patient was not very compliant with medical care/advice after being discharged from the hospital in the past. Family also asked if patient was ready to be picked up and could be discharged at this time. RN explained that patient was not discharged at this time, to which brother agreed that he was not ready to be discharged at this time.
--- NOTE | 2020-09-07 21:43 | P.PN_ITS ---
Subjective Subjective: Interval history: Today he is doing little bit better. Denies pain. Denies trouble breathing. Appears still somewhat confused. States that his girl keeps walking around with his food, getting it cold . Request whether he could get placement to alf facility. Vitals/I&O/Wt Last Vital Signs Temp 97.8 F 09/07/20 18:00 Pulse 109 H 09/07/20 20:33 Resp 16 09/07/20 20:23 BP 131/80 09/07/20 18:00 Pulse Ox 92 09/07/20 20:23 09/07/20 09/07/20 09/07/20 06:59 14:59 22:59 Intake Total 350 / 1705 475 / 475 500 / 975 Output Total 650 / 2525 700 / 700 900 / 1600 Balance -300 / -820 -225 / -225 -400 / -625 Weight last 48 hrs Weight 53.977 kg Weight 54.476 kg Physical Exam Const: COMMON NORMALS: no acute distress GENERAL APPEARANCE: disheveled and frail appearing ORIENTATION/CONSCIOUSNESS: Yes confused OTHER: More awake and alert. HENMT: COMMON NORMALS: oropharynx normal Neck/C-Spine: COMMON NORMALS: no JVD Resp: COMMON NORMALS: normal respiratory effort AUSCULTATION: diminished l juan jose sounds Cardio: COMMON NORMALS: no JVD, regular rhythm, S1 normal heart sound present, S2 normal heart sound present and No murmurs present (Cardio) RHYTHM: regular rhythm HEART SOUNDS: S1 normal heart sound present and S2 normal heart sound present GI: COMMON NORMALS: Normal to inspection, nondistended, normoactive bowel sounds present, Soft to palpation and non-tender PALPATION: Yes Soft to palpation Extremity: COMMON NORMALS: no joint enlargement and no pedal edema Neuro: COMMON NORMALS: moves all extremities Skin: COMMON NORMALS: no rashes or lesions noted GENERAL SKIN EXAM: no rashes or lesions noted Urinary Catheter Management^: Orourke: Cath Placed During This Visit: yes, but has since been removed by the nurse Reason for Continuing Indwelling Catheter: Accurate Measurement of Urinary Output in Critically Ill Patients Urinary Catheter Date of Insertion: 09/04/20 Urinary Catheter Time of Insertion: 10:00 Date Urinary Catheter Removed: 09/03/20 Time Urinary Catheter Discontinued: 15:30 Data : 09/07/20 04:02 09/07/20 04:02 Micro: Microbiology 09/06/20 20:30 Occult Blood (FIT) - Final Stool Routine Collection 09/06/20 15:40 MRSA Culture - Final Nose 09/05/20 14:50 Gram Stain - Final Sputum - Expectorated Sputum Sputum Culture - Final Proteus mirabilis A&P Assessment and plan (1) Alcohol withdrawal delirium: Persistence of confusion, tremor, protracted alcohol withdrawal. Continue supportive care with benzodiazepines. Appreciate inspector coated fabrics recommendations. Started on Ativan. Today perhaps slightly better, more redirectable, little bit better safety awareness. Worked with speech therapy. Status: Acute (2) At high risk for aspiration: High risk of aspiration, but today a little bit better safety awareness, more redirectable. Starting on trial of oral intake. Status: Acute (3) Acute respiratory failure with hypoxemia: Improved, but at high risk of recurrence of aspiration. Continue treatment of aspiration pneumonia. Proteus mirabilis and sputum culture. Appreciate pulmonology recommendations, antibiotics adjusted to Levaquin. MRSA PCR negative. Primaxin, vancomycin discontinued. Pulmonology noted decrease in pleural effusion. Status: Acute (4) Hypotension: Resolved. Resume Flomax if will be able to tolerate oral intake. Hypotension so far has resolved, has not required pressors. Monitor. Status: Acute (5) Alcohol withdrawal seizure with delirium: Continue support with benzodiazepines for protracted alcohol withdrawal. Keppra. Status: Acute (6) AMS (altered mental status): Very slow improvement. Persistent DTs, severe alcohol withdrawal. Continue supportive care for alcohol withdrawal as above. Status: Acute Qualifiers: Altered mental status type: transient alteration of awareness Qualified Code(s): R40.4 - Transient alteration of awareness (7) Acute alcohol intoxication: Resolved Status: Acute Qualifiers: Complication of substance-induced condition: uncomplicated Qualified Code(s): F10.920 - Alcohol use, unspecified with intoxication, uncomplicated (8) Gastritis: PPI Status: Acute (9) Anemia: Appears stable posttransfusion Gastritis, duodenitis Status: Acute (10) Hypoxia: Status: Acute (11) COPD (chronic obstructive pulmonary disease): Status: Acute Qualifiers: COPD type: unspecified COPD Qualified Code(s): J44.9 - Chronic obstructive pulmonary disease, unspecified (12) Urinary retention: Orourke replaced due to hypotension, lack of urine output. Prior retention. Appears close to a liter came out after placing a Orourke. Flomax on hold for now due to hypotension. Keep Orourke in place for now. Status: Acute (13) Diarrhea: Status: Acute (14) Aspiration pneumonia: As above. Status: Acute Qualifiers: Aspiration pneumonia type: due to regurgitated food Laterality: right Lung location: lower lobe of lung Qualified Code(s): J69.0 - Pneumonitis due to inhalation of food and vomit Additional A&P Information History of alcohol abuse Polyuria: Resolved. Most likely secondary to excessive alcohol intake in the past. Attestations Medical Necessity Statement*: Continue admission for assessment management of protracted alcohol withdrawal with delirium tremens, status post withdrawal seizure, treatment of aspiration pneumonia with very high risk of reaspiration. Coding Level of Care Code Acute Icing Mixer for [facility] Diagnoses Alcohol withdrawal delirium F10.231 At high risk for aspiration Z91.89 Acute respiratory failure with hypoxemia J96.01 Hypotension I95.9 Alcohol withdrawal seizure with delirium F10.231; R56.9 AMS (altered mental status) R40.4 Altered mental status type: transient alteration of awareness Acute alcohol intoxication F10.920 Complication of substance-induced condition: uncomplicated Gastritis K29.70 Anemia D64.9 Hypoxia R09.02 COPD (chronic obstructive pulmonary disease) J44.9 COPD type: unspecified COPD Urinary retention R33.9 Diarrhea R19.7 Aspiration pneumonia J69.0 Aspiration pneumonia type: due to regurgitated food Laterality: right Lung location: lower lobe of lung
[2020-09-08] VITALS (24 sets, daily range): BP systolic 96–140; BP diastolic 63–89; PULSE 75–177; RESP 0–21; TEMP 36.7–36.9; O2SAT 92–98
[2020-09-08] MEDS: acetylcysteine 200 mg/mL SDV 4 mL 100 MG INHALATION ×6 (00:32→23:36)
[2020-09-08] MEDS: ipratropium-albuterol 3 mL Neb INHALATION ×6 (00:32→23:36)
[2020-09-08 04:56] LABS: Basophils # 0.1 10^3/uL (0.0-0.1); Basophils % 0.9 %; Eosinophils % 0.6 %; Hematocrit 30.4 % (42.0-52.0); Hemoglobin 9.4 g/dL (11.7-16.6); Lymphocytes # 1.6 10^3/uL (0.8-4.8); Lymphocytes % 25.8 %; Mean Corpuscular HGB Conc 30.9 g/dL (30.0-36.0); Mean Corpuscular Hemoglobin 32.1 pg (28.0-34.0); Mean Corpuscular Volume 103.8 fL (80-94); Mean Platelet Volume 9.4 fL (7.4-10.4); Monocytes # 0.8 10^3/uL (0.2-0.9); Monocytes % 12.6 %; Neutrophils # 3.79 10^3/uL (1.8-7.7); Neutrophils % 59.6 %; Nucleated Red Blood Cells % 0 %; Platelet Count 645 10^3/cmm (130-400); Red Blood Count 2.93 10^6/uL (4.1-5.3); Red Cell Distribution Width 17.9 % (12.1-15.1); White Blood Count 6.4 10^3/uL (4.0-10.0)
[2020-09-08 05:18] LABS: Alanine Aminotransferase 24 U/L (0-41); Albumin Level 3.4 g/dL (3.5-5.2); Alkaline Phosphatase 98 IU/L (40-130); Anion Gap 15.3 (5-19); Aspartate Amino Transferase 34 U/L (0-40); Blood Urea Nitrogen 3 mg/dL (6-20); Calcium 8.3 mg/dL (8.5-10.5); Carbon Dioxide 29 mmol/L (22-29); Chloride 106 mmol/L (98-107); Globulin 2.5 g/dL (1.3-4.6); Glomerular Filtration Rate 171.4 mL/min (90-130); Glucose 99 mg/dL (65-115); Magnesium 1.5 mg/dL (1.7-2.3); Osmolality Calculated 301 mOsm/kg (285-295); Potassium 3.3 mmol/L (3.5-5.1); Sodium 147 mmol/L (136-145); Total Bilirubin 0.5 mg/dL (0.15-1.2); Total Protein 5.9 g/dL (6.6-8.7)
[2020-09-08] MEDS: chlordiazePOXIDE 10 mg Capsule PO ×2 (06:05→17:07)
[2020-09-08 06:13] LABS: Glucose Point of Care 128 mg/dL (70-110)
--- NOTE | 2020-09-08 07:12 | PC.NURSE ---
Shift Summary; Patient had restless evening in total. RN had to remind patient on multiple attempts to keep monitoring devices alone, in order for assessment and monitoring. RN found patient pulling at IV, and had pulled out IV catheter. 2 new IV's placed in return to bilateral arms. Bed bath given with linen change completed. Patient's tremors, anxiety, and hallucinations (both visual and auditory) increased in severity and frequency throughout overnight hours. Patient unable to grasp at objects without dropping items almost immediately. RN reoriented patient to self and situation on multiple occasions, and gave education on importance of adhering to current medical plan of care. Changed from Rm Air, to 3L NC based on increased O2 demand and need. During breathing tx, patient began coughing and had episode of O2 decreasing sporadically. RN placed O2 on patient, and adamantly reminded patient to remember to take deep breaths as needed, and avoid talking when these episodes occur. Patient still continues to have difficultly in swallowing fluids and/or bites of soft foods without leaning into a coughing episode. Multiple episodes of patient becoming agitated with RN and other staff, accusing them of stealing his cartons of cigarettes, and conspiring in multiple ways against him. No needs at this time. Patient now relaxed and resting. Report given to marie simeon RN.
[2020-09-08] MEDS: predniSONE 20 mg Tablet PO (08:26)
[2020-09-08] MEDS: lidocaine 1% 5 ML in potassium chloride premix 100 ML 25 ML IV (08:26)
[2020-09-08] MEDS: magnesium sulfate premix 2 GM/50 ML PIGGYBACK IV (08:26)
[2020-09-08] MEDS: folic acid 1 mg Tablet PO (08:26)
[2020-09-08] MEDS: tamsulosin 0.4 mg Capsule PO (08:27)
[2020-09-08] MEDS: multivitamin therapeutic Tablet 1 TAB PO (08:27)
[2020-09-08] MEDS: pantoprazole 40 mg SDV IVP ×2 (08:27→20:20)
[2020-09-08] MEDS: metoprolol tartrate 25 mg Tablet PO ×2 (08:30→20:20)
[2020-09-08 11:13] LABS: Glucose Point of Care 158 mg/dL (70-110)
--- NOTE | 2020-09-08 16:07 | PC.OT ---
OT tx attempted at 1130. Pt is sleeping and nurse requests pt be allowed to sleep today as pt hasn't slept in several days. will attempt OT tx again tomorrow.
--- NOTE | 2020-09-08 20:15 | P.PN_ITS ---
Subjective Subjective: Interval history: This morning he is finally getting some sleep for the first time in a while as reported by his RN. On waking confused, going off on random tangents, at one point asks for a cigarette. Agreeable to nicotine patch instead. Vitals/I&O/Wt Last Vital Signs Temp 98.1 F 09/08/20 18:00 Pulse 83 09/08/20 20:05 Resp 19 H 09/08/20 19:56 BP 101/64 09/08/20 18:00 Pulse Ox 93 09/08/20 19:56 09/08/20 09/08/20 09/08/20 06:59 14:59 22:59 Intake Total 150 / 1330 455 / 455 395 / 850 Output Total 1300 / 2900 600 / 600 Balance -1150 / -1570 455 / 455 -205 / 250 Weight last 48 hrs Weight 54.724 kg Weight 53.977 kg Physical Exam Const: COMMON NORMALS: no acute distress GENERAL APPEARANCE: cooperative (Cooperative, but needing several prompts for simple commands), disheveled and frail appearing ORIENTATION/CONSCIOUSNESS: Yes confused OTHER: Sleeping, wakes up easily. HENMT: COMMON NORMALS: oropharynx normal Neck/C-Spine: COMMON NORMALS: no JVD Resp: COMMON NORMALS: normal respiratory effort AUSCULTATION: diminished lung sounds Cardio: COMMON NORMALS: no JVD, regular rhythm, S1 normal heart sound present, S2 normal heart sound present and No murmurs present (Cardio) RHYTHM: regular rhythm HEART SOUNDS: S1 normal heart sound present and S2 normal heart sound present GI: COMMON NORMALS: Normal to inspection, nondistended, normoactive bowel sounds present, Soft to palpation and non-tender PALPATION: Yes Soft to palpation Extremity: COMMON NORMALS: no joint enlargement and no pedal edema Neuro: COMMON NORMALS: moves all extremities Skin: COMMON NORMALS: no rashes or lesions noted GENERAL SKIN EXAM: no rashes or lesions noted Urinary Catheter Management^: [place]: Cath Placed During This Visit: yes, but has since been removed by the nurse Reason for Continuing Indwelling Catheter: Accurate Measurement of Urinary Output in Critically Ill Patients Urinary Catheter Date of Insertion: 09/04/20 Urinary Catheter Time of Insertion: 10:00 Date Urinary Catheter Removed: 09/03/20 Time Urinary Catheter Discontinued: 15:30 Data : 09/08/20 04:36 09/08/20 04:36 Micro: Microbiology 09/06/20 20:30 Occult Blood (FIT) - Final Stool Routine Collection A&P Assessment and plan (1) Alcohol withdrawal delirium: Replace hypomagnesemia. Hypokalemia. Confused, tremulous. No additional seizure. No sign of active infection. Continue benzodiazepine support for persistent DT, protracted withdrawal. Librium, Ativan as needed. He has done better eating today. Requesting for cigarette, but agreeable to nicotine patch instead. Added. Status: Acute (2) At high risk for aspiration: Has been eating little bit better. Continue aspiration precautions. ST. Status: Acute (3) Acute respiratory failure with hypoxemia: Improved, but at high risk of recurrence of aspiration. Proteus mirabilis and sputum culture. Levaquin. MRSA PCR negative. Primaxin, vancomycin discontinued. Noted decrease in pleural effusion. Status: Acute (4) Hypotension: Resolved. BP soft, but tolerating Flomax. Hypotension so far has resolved, has not required pressors. Monitor. Status: Acute (5) Alcohol withdrawal seizure with delirium: Continue support with benzodiazepines for protracted alcohol withdrawal. Keppra. Status: Acute (6) AMS (altered mental status): Very slow improvement. Persistent DTs, severe alcohol withdrawal. Continue supportive care. Status: Acute Qualifiers: Altered mental status type: transient alteration of awareness Qualified Code(s): R40.4 - Transient alteration of awareness (7) Acute alcohol intoxication: Resolved Status: Acute Qualifiers: Complication of substance-induced condition: uncomplicated Qualified Code(s): F10.920 - Alcohol use, unspecified with intoxication, uncomplicated (8) Gastritis: PPI Status: Acute (9) Anemia: Appears stable posttransfusion Gastritis, duodenitis Status: Acute (10) Hypoxia: Status: Acute (11) COPD (chronic obstructive pulmonary disease): Status: Acute Qualifiers: COPD type: unspecified COPD Qualified Code(s): J44.9 - Chronic obstructive pulmonary disease, unspecified (12) Urinary retention: [place]. Monitor for recurrence of retention with voiding trial. Flomax restarted. Status: Acute (13) Diarrhea: Status: Acute (14) Aspiration pneumonia: As above. Status: Acute Qualifiers: Aspiration pneumonia type: due to regurgitated food Laterality: right Lung location: lower lobe of lung Qualified Code(s): J69.0 - Pneumonitis due to inhalation of food and vomit Additional A&P Information History of alcohol abuse Polyuria: Resolved. Most likely secondary to excessive alcohol intake in the past. Attestations Medical Necessity Statement*: Continue admission for assessment management of protracted delirium, alcohol withdrawal, benzodiazepine support, supportive care, aspiration precautions with high risk of aspiration, with prior aspiration and aspiration pneumonia. Coding Level of Care Code Acute [facility] for [facility] Fwd Diagnoses Alcohol withdrawal delirium F10.231 At high risk for aspiration Z91.89 Acute respiratory failure with hypoxemia J96.01 Hypotension I95.9 Alcohol withdrawal seizure with delirium F10.231; R56.9 AMS (altered mental status) R40.4 Altered mental status type: transient alteration of awareness Acute alcohol intoxication F10.920 Complication of substance-induced condition: uncomplicated Gastritis K29.70 Anemia D64.9 Hypoxia R09.02 COPD (chronic obstructive pulmonary disease) J44.9 COPD type: unspecified COPD Urinary retention R33.9 Diarrhea R19.7 Aspiration pneumonia J69.0 Aspiration pneumonia type: due to regurgitated food Laterality: right Lung location: lower lobe of lung
[2020-09-09] VITALS (21 sets, daily range): BP systolic 101–145; BP diastolic 67–88; PULSE 70–120; RESP 13–92; TEMP 36.4–36.8; O2SAT 91–100; BMI 16.2
[2020-09-09] MEDS: acetylcysteine 200 mg/mL SDV 4 mL 100 MG INHALATION ×2 (03:19→08:30)
[2020-09-09] MEDS: ipratropium-albuterol 3 mL Neb INHALATION ×6 (03:19→23:14)
[2020-09-09 03:26] LABS: Basophils # 0.1 10^3/uL (0.0-0.1); Basophils % 0.8 %; Eosinophils % 0.3 %; Hematocrit 28.6 % (42.0-52.0); Hemoglobin 8.4 g/dL (11.7-16.6); Lymphocytes # 1.7 10^3/uL (0.8-4.8); Lymphocytes % 26.2 %; Mean Corpuscular HGB Conc 29.4 g/dL (30.0-36.0); Mean Corpuscular Hemoglobin 31.9 pg (28.0-34.0); Mean Corpuscular Volume 108.7 fL (80-94); Mean Platelet Volume 9.5 fL (7.4-10.4); Monocytes # 0.8 10^3/uL (0.2-0.9); Monocytes % 11.6 %; Neutrophils # 3.92 10^3/uL (1.8-7.7); Neutrophils % 60.6 %; Nucleated Red Blood Cells % 0 %; Platelet Count 488 10^3/cmm (130-400); Red Blood Count 2.63 10^6/uL (4.1-5.3); Red Cell Distribution Width 18.6 % (12.1-15.1); White Blood Count 6.5 10^3/uL (4.0-10.0)
[2020-09-09 03:44] LABS: Alanine Aminotransferase 25 U/L (0-41); Albumin Level 2.9 g/dL (3.5-5.2); Alkaline Phosphatase 86 IU/L (40-130); Aspartate Amino Transferase 35 U/L (0-40); Blood Urea Nitrogen 6 mg/dL (6-20); Calcium 7.9 mg/dL (8.5-10.5); Carbon Dioxide 24 mmol/L (22-29); Chloride 111 mmol/L (98-107); Globulin 2.4 g/dL (1.3-4.6); Glomerular Filtration Rate 221.7 mL/min (90-130); Glucose 99 mg/dL (65-115); Magnesium 1.9 mg/dL (1.7-2.3); Osmolality Calculated 300 mOsm/kg (285-295); Sodium 146 mmol/L (136-145); Total Bilirubin 0.4 mg/dL (0.15-1.2); Total Protein 5.3 g/dL (6.6-8.7)
[2020-09-09 03:54] LABS: Anion Gap 14.4 (5-19); Potassium 3.4 mmol/L (3.5-5.1)
[2020-09-09] MEDS: chlordiazePOXIDE 10 mg Capsule PO ×2 (06:15→17:04)
--- NOTE | 2020-09-09 06:39 | PC.NURSE ---
SHIFT SUMMARY Patient remains very confused and is having hallucinations that continued throughout the evening. He had 150 mLs of clear dark urine out all evening. No drips are infusing at this time. Patient reported generalized body pain at a 10 out of 10 on the numeric scale except for when sleeping, then patient was not noted to be in any pain per the FACES scale.
[2020-09-09] MEDS: pantoprazole 40 mg SDV IVP ×2 (08:24→20:26)
[2020-09-09] MEDS: predniSONE 20 mg Tablet PO (08:25)
[2020-09-09] MEDS: tamsulosin 0.4 mg Capsule PO (08:25)
[2020-09-09] MEDS: folic acid 1 mg Tablet PO (08:25)
[2020-09-09] MEDS: multivitamin therapeutic Tablet 1 TAB PO (08:25)
[2020-09-09] MEDS: lidocaine 1% 5 ML in potassium chloride premix 100 ML 50 ML IV (08:26)
[2020-09-09] MEDS: metoprolol tartrate 25 mg Tablet PO ×2 (08:30→20:27)
--- NOTE | 2020-09-09 09:41 | PM.PN ---
Subjective Subjective: Interval history: When asked how he is doing, states terrible, when asked if he is in pain, states yes, everywhere. Discussing with his nurse, he was doing great earlier this morning, conversant, cracking jokes, and did great with his breakfast, ate the whole thing which he also tells me, however, currently is having pain in his right arm with the potassium replacement which is completely changed his mood. He remembers that he is in [place] when asked, but does not recall what type of place we are in. Vitals/I&O/Wt Last Vital Signs Temp 97.9 F 09/09/20 08:00 Pulse 103 H 09/09/20 08:58 Resp 18 09/09/20 08:31 BP 117/83 09/09/20 08:00 Pulse Ox 93 09/09/20 08:31 09/08/20 09/09/20 09/09/20 22:59 06:59 14:59 Intake Total 700 / 1155 300 / 1455 250.833 / 250.833 Output Total 600 / 600 150 / 750 Balance 100 / 555 150 / 705 250.833 / 250.833 Weight last 48 hrs Weight 54.459 kg Weight 54.724 kg Physical Exam Const: COMMON NORMALS: no acute distress GENERAL APPEARANCE: cooperative (Cooperative, but needing several prompts for simple commands), disheveled and frail appearing ORIENTATION/CONSCIOUSNESS: Yes confused OTHER: Sleeping, wakes up easily. HENMT: COMMON NORMALS: oropharynx normal Neck/C-Spine: COMMON NORMALS: no JVD Resp: COMMON NORMALS: normal respiratory effort AUSCULTATION: diminished lung sounds Cardio: COMMON NORMALS: no JVD, regular rhythm, S1 normal heart sound present, S2 normal heart sound present and No murmurs present (Cardio) RHYTHM: regular rhythm HEART SOUNDS: S1 normal heart sound present and S2 normal heart sound present GI: COMMON NORMALS: Normal to inspection, nondistended, normoactive bowel sounds present, Soft to palpation and non-tender PALPATION: Yes Soft to palpation Extremity: COMMON NORMALS: no joint enlargement and no pedal edema Neuro: COMMON NORMALS: moves all extremities Skin: COMMON NORMALS: no rashes or lesions noted GENERAL SKIN EXAM: no rashes or lesions noted Urinary Catheter Management^: [place]: Cath Placed During This Visit: yes, but has since been removed by the nurse Reason for Continuing Indwelling Catheter: Accurate Measurement of Urinary Output in Critically Ill Patients Urinary Catheter Date of Insertion: 09/04/20 Urinary Catheter Time of Insertion: 10:00 Date Urinary Catheter Removed: 09/03/20 Time Urinary Catheter Discontinued: 15:30 Data : 09/09/20 02:34 09/09/20 02:34 A&P Assessment and plan (1) Alcohol withdrawal delirium: Overall he appears to be doing a bit better. He is bothered by the potassium infusion, but otherwise reportedly has had a good morning, conversant, joking. 8 his entire breakfast. He is still tremulous. He is still having difficulty telling me what place he is in, although knows it is located in [place]. Still goes off on unrelated tangents, when discussing blood glucose checks, states that those are off his brother. Continue Librium, Ativan as needed. Received magnesium replacement. Not tolerating potassium replacement once a day, will switch to oral. Maintain fall precautions, seizure precautions. Otherwise should be able to transition to medical floor. Maintain aspiration precautions. Speech therapy follow-up. Case management working on disposition planning. Status: Acute (2) At high risk for aspiration: Oral intake improving. At risk of aspiration. Continue aspiration precautions. ST. Status: Acute (3) Acute respiratory failure with hypoxemia: Continue Levaquin course. Aspiration precautions. ST. Improved, but at high risk of recurrence of aspiration. Proteus mirabilis and sputum culture. MRSA PCR negative. Primaxin, vancomycin discontinued. Noted decrease in pleural effusion. Status: Acute (4) Hypotension: Resolved. BP soft, but tolerating Flomax. Hypotension so far has resolved, has not required pressors. Monitor. Status: Acute (5) Alcohol withdrawal seizure with delirium: Continue support with benzodiazepines for protracted alcohol withdrawal. Keppra. Status: Acute (6) AMS (altered mental status): Very slow improvement. Persistent DTs, severe alcohol withdrawal. Continue supportive care. Status: Acute Qualifiers: Altered mental status type: transient alteration of awareness Qualified Code(s): R40.4 - Transient alteration of awareness (7) Acute alcohol intoxication: Resolved Status: Acute Qualifiers: Complication of substance-induced condition: uncomplicated Qualified Code(s): F10.920 - Alcohol use, unspecified with intoxication, uncomplicated (8) Gastritis: PPI Status: Acute (9) Anemia: Appears stable posttransfusion Gastritis, duodenitis Status: Acute (10) Hypoxia: Status: Acute (11) COPD (chronic obstructive pulmonary disease): Status: Acute Qualifiers: COPD type: unspecified COPD Qualified Code(s): J44.9 - Chronic obstructive pulmonary disease, unspecified (12) Urinary retention: [place]. Monitor for recurrence of retention with voiding trial. Flomax restarted. Status: Acute (13) Diarrhea: Status: Acute (14) Aspiration pneumonia: As above. Status: Acute Qualifiers: Aspiration pneumonia type: due to regurgitated food Laterality: right Lung location: lower lobe of lung Qualified Code(s): J69.0 - Pneumonitis due to inhalation of food and vomit Additional A&P Information Smoking addiction: Nicotine patch History of alcohol abuse Polyuria: Resolved. Most likely secondary to excessive alcohol intake in the past. Attestations Medical Necessity Statement*: Continue admission for assessment management of protracted alcohol withdrawal, aspiration pneumonia, at risk of reaspiration while recovering from alcohol withdrawal.. Coding Level of Care Code Acute [employer] [facility] for [facility] Fwd Diagnoses Alcohol withdrawal delirium F10.231 At high risk for aspiration Z91.89 Acute respiratory failure with hypoxemia J96.01 Hypotension I95.9 Alcohol withdrawal seizure with delirium F10.231; R56.9 AMS (altered mental status) R40.4 Altered mental status type: transient alteration of awareness Acute alcohol intoxication F10.920 Complication of substance-induced condition: uncomplicated Gastritis K29.70 Anemia D64.9 Hypoxia R09.02 COPD (chronic obstructive pulmonary disease) J44.9 COPD type: unspecified COPD Urinary retention R33.9 Diarrhea R19.7 Aspiration pneumonia J69.0 Aspiration pneumonia type: due to regurgitated food Laterality: right Lung location: lower lobe of lung
[2020-09-09] MEDS: potassium chloride oral liq 20 mEq/15 mL UDC PO (10:08)
[2020-09-09] MEDS: HYDROmorphone 1 mg/mL INJ 1 mL IVP (23:41)
[2020-09-10] VITALS (18 sets, daily range): BP systolic 102–155; BP diastolic 65–96; PULSE 76–126; RESP 16–22; TEMP 36.4–37.3; O2SAT 90–99
[2020-09-10] MEDS: ipratropium-albuterol 3 mL Neb INHALATION ×6 (03:02→23:28)
[2020-09-10] MEDS: chlordiazePOXIDE 10 mg Capsule PO ×2 (06:14→17:36)
[2020-09-10 07:09] LABS: Basophils # 0.1 10^3/uL (0.0-0.1); Basophils % 1.3 %; Eosinophils # 0.1 10^3/uL (0.0-0.8); Eosinophils % 1.3 %; Hematocrit 30.5 % (42.0-52.0); Hemoglobin 9.1 g/dL (11.7-16.6); Lymphocytes # 2.6 10^3/uL (0.8-4.8); Lymphocytes % 30.7 %; Mean Corpuscular HGB Conc 29.8 g/dL (30.0-36.0); Mean Corpuscular Hemoglobin 31.9 pg (28.0-34.0); Mean Platelet Volume 9.2 fL (7.4-10.4); Monocytes # 0.8 10^3/uL (0.2-0.9); Monocytes % 9.5 %; Neutrophils # 4.75 10^3/uL (1.8-7.7); Neutrophils % 56.5 %; Nucleated Red Blood Cells % 0 %; Platelet Count 485 10^3/cmm (130-400); Red Blood Count 2.85 10^6/uL (4.1-5.3); Red Cell Distribution Width 18.6 % (12.1-15.1); White Blood Count 8.4 10^3/uL (4.0-10.0)
[2020-09-10 07:28] LABS: Alanine Aminotransferase 26 U/L (0-41); Albumin Level 3.2 g/dL (3.5-5.2); Alkaline Phosphatase 90 IU/L (40-130); Anion Gap 12.7 (5-19); Aspartate Amino Transferase 35 U/L (0-40); Blood Urea Nitrogen 8 mg/dL (6-20); Calcium 8.1 mg/dL (8.5-10.5); Carbon Dioxide 30 mmol/L (22-29); Chloride 108 mmol/L (98-107); Globulin 2.5 g/dL (1.3-4.6); Glomerular Filtration Rate 221.7 mL/min (90-130); Glucose 72 mg/dL (65-115); Osmolality Calculated 301 mOsm/kg (285-295); Potassium 3.7 mmol/L (3.5-5.1); Sodium 147 mmol/L (136-145); Total Bilirubin 0.3 mg/dL (0.15-1.2); Total Protein 5.7 g/dL (6.6-8.7)
[2020-09-10] MEDS: pantoprazole DR 40 mg Tablet PO ×2 (10:18→21:00)
[2020-09-10] MEDS: tamsulosin 0.4 mg Capsule PO (10:19)
[2020-09-10] MEDS: folic acid 1 mg Tablet PO (10:19)
[2020-09-10] MEDS: multivitamin therapeutic Tablet 1 TAB PO (10:19)
[2020-09-10] MEDS: levETIRAcetam 500 mg Tablet PO ×2 (10:19→21:00)
[2020-09-10] MEDS: thiamine 100 mg Tablet PO (10:19)
[2020-09-10] MEDS: metoprolol tartrate 25 mg Tablet PO ×2 (10:19→21:00)
[2020-09-10] MEDS: predniSONE 20 mg Tablet PO (10:19)
--- NOTE | 2020-09-10 16:16 | PC.NURSE ---
patient had 250ml urine output for shift. patient has isolation order and is negative for covid. food writer notified Dr Harris
--- NOTE | 2020-09-10 16:18 | PC.NURSE ---
cleaned patient's pressure ulcer with NS and optifoam applied.
--- NOTE | 2020-09-10 20:11 | PM.PN ---
Subjective Subjective: Interval history: He is feeling somewhat achy today. Having some tenderness in the right bottom side of his chest which he says is new. When asked about her breathing says it is not the best . Knows he is in [place], does not remember what kind of building he is in. States the year correctly. He is not entirely sure why he is here. Vitals/I&O/Wt Last Vital Signs Temp 98.7 F 09/10/20 16:00 Pulse 125 H 09/10/20 20:10 Resp 18 09/10/20 20:10 BP 102/65 09/10/20 16:00 Pulse Ox 91 09/10/20 20:10 09/10/20 09/10/20 09/10/20 06:59 14:59 22:59 Intake Total 530 / 530 0 / 530 Output Total 250 / 250 250 / 500 Balance 280 / 280 -250 / 30 Weight last 48 hrs Weight 59.012 kg Weight 54.459 kg Physical Exam Const: COMMON NORMALS: no acute distress GENERAL APPEARANCE: cooperative (Cooperative, but needing several prompts for simple commands), disheveled and frail appearing ORIENTATION/CONSCIOUSNESS: Yes confused OTHER: Awake, laying lopsided in this bed diagonally with his head against the bed rail, and feet hanging down, gown off to the side exposed below the waist. HENMT: COMMON NORMALS: oropharynx normal Neck/C-Spine: COMMON NORMALS: no JVD Resp: COMMON NORMALS: normal respiratory effort AUSCULTATION: diminished lung sounds Cardio: COMMON NORMALS: no JVD, regular rhythm, S1 normal heart sound present, S2 normal heart sound present and No murmurs present (Cardio) RHYTHM: regular rhythm HEART SOUNDS: S1 normal heart sound present and S2 normal heart sound present GI: COMMON NORMALS: Normal to inspection, nondistended, normoactive bowel sounds present, Soft to palpation and non-tender PALPATION: Yes Soft to palpation Extremity: COMMON NORMALS: no joint enlargement and no pedal edema Neuro: COMMON NORMALS: moves all extremities Skin: COMMON NORMALS: no rashes or lesions noted GENERAL SKIN EXAM: no rashes or lesions noted Urinary Catheter Management^: [place]: Cath Placed During This Visit: yes, but has since been removed by the nurse Reason for Continuing Indwelling Catheter: Assist healing open wound Urinary Catheter Date of Insertion: 09/04/20 Urinary Catheter Time of Insertion: 10:00 Date Urinary Catheter Removed: 09/03/20 Time Urinary Catheter Discontinued: 15:30 Data : 09/10/20 06:55 09/10/20 06:55 A&P Assessment and plan (1) Alcohol withdrawal delirium: Overall he appears to be doing a bit better. He is bothered by the potassium infusion, but otherwise reportedly has had a good morning, conversant, joking. 8 his entire breakfast. He is still tremulous. He is still having difficulty telling me what place he is in, although knows it is located in [place]. Still goes off on unrelated tangents, when discussing blood glucose checks, states that those are off his brother. Continue Librium, Ativan as needed. Received magnesium replacement. Not tolerating potassium replacement once a day, will switch to oral. Maintain fall precautions, seizure precautions. Otherwise should be able to transition to medical floor. Maintain aspiration precautions. Speech therapy follow-up. Case management working on disposition planning. Status: Acute (2) At high risk for aspiration: Oral intake improving. At risk of aspiration. Continue aspiration precautions. ST. Status: Acute (3) Acute respiratory failure with hypoxemia: Appears to be back on oxygen. Reports some pain in his right lower chest. Ordered repeat chest x-ray. Continue Levaquin course. Aspiration precautions. Dysphagia level [address] Improved, but at high risk of recurrence of aspiration. Proteus mirabilis and sputum culture. MRSA PCR negative. Off Primaxin, vancomycin Noted decrease in pleural effusion. Status: Acute (4) Hypotension: Resolved. Blood pressures rather variable. Monitor. So far tolerating resumed Flomax. Hypotension so far has resolved, has not required pressors. Monitor. Status: Acute (5) Alcohol withdrawal seizure with delirium: Continue support with benzodiazepines for protracted alcohol withdrawal. Keppra. Status: Acute (6) AMS (altered mental status): Very slow improvement. Persistent DTs, severe alcohol withdrawal. Continue supportive care. Status: Acute Qualifiers: Altered mental status type: transient alteration of awareness Qualified Code(s): R40.4 - Transient alteration of awareness (7) Acute alcohol intoxication: Resolved Status: Acute Qualifiers: Complication of substance-induced condition: uncomplicated Qualified Code(s): F10.920 - Alcohol use, unspecified with intoxication, uncomplicated (8) Gastritis: PPI Status: Acute (9) Anemia: Appears stable posttransfusion Gastritis, duodenitis Status: Acute (10) Hypoxia: Status: Acute (11) COPD (chronic obstructive pulmonary disease): Status: Acute Qualifiers: COPD type: unspecified COPD Qualified Code(s): J44.9 - Chronic obstructive pulmonary disease, unspecified (12) Urinary retention: [place]. Monitor for recurrence of retention with voiding trial. Flomax restarted and has tolerated it so far. Consider repeat voiding trial. Status: Acute (13) Diarrhea: Status: Acute (14) Aspiration pneumonia: As above. Status: Acute Qualifiers: Aspiration pneumonia type: due to regurgitated food Laterality: right Lung location: lower lobe of lung Qualified Code(s): J69.0 - Pneumonitis due to inhalation of food and vomit Additional A&P Information Smoking addiction: Nicotine patch History of alcohol abuse Polyuria: Resolved. Most likely secondary to excessive alcohol intake in the past. Attestations Medical Necessity Statement*: Continue admission for assessment management of persistent alcohol withdrawal, delirium, aspiration pneumonia, with high risk of aspiration, reassessment of return of hypoxia. Coding Level of Care Code Acute [employer] for [facility] Fwd Diagnoses Alcohol withdrawal delirium F10.231 At high risk for aspiration Z91.89 Acute respiratory failure with hypoxemia J96.01 Hypotension I95.9 Alcohol withdrawal seizure with delirium F10.231; R56.9 AMS (altered mental status) R40.4 Altered mental status type: transient alteration of awareness Acute alcohol intoxication F10.920 Complication of substance-induced condition: uncomplicated Gastritis K29.70 Anemia D64.9 Hypoxia R09.02 COPD (chronic obstructive pulmonary disease) J44.9 COPD type: unspecified COPD Urinary retention R33.9 Diarrhea R19.7 Aspiration pneumonia J69.0 Aspiration pneumonia type: due to regurgitated food Laterality: right Lung location: lower lobe of lung
--- NOTE | 2020-09-10 20:24 | XRR_ITS ---
PROCEDURE INFORMATION: Exam: XR Chest Exam date and time: 09/10/2020 8:45 PM Age: 59 years old Clinical indication: Shortness of breath; Additional info: Hypoxia TECHNIQUE: Imaging protocol: XR of the chest. Views: 1 view. COMPARISON: CR (CHEST, ) 09/05/2020 7:11 PM FINDINGS: Lungs: Bibasilar atelectasis versus minimal infiltrate decreased compared to prior exam. Emphysematous changes suspected. Pleural spaces: Unremarkable. No pleural effusion. No pneumothorax. Heart/Mediastinum: Unremarkable. No cardiomegaly. Bones/joints: Unremarkable. XR/XR chest 1V portable [id number] IMPRESSION: 1. Bibasilar atelectasis versus minimal infiltrate decreased compared to prior exam. 2. Emphysematous changes suspected.
[2020-09-11] VITALS (19 sets, daily range): BP systolic 98–171; BP diastolic 62–92; PULSE 88–126; RESP 16–22; TEMP 36.6–36.8; O2SAT 87–99
[2020-09-11] MEDS: ipratropium-albuterol 3 mL Neb INHALATION ×6 (03:05→23:05)
[2020-09-11] MEDS: chlordiazePOXIDE 10 mg Capsule PO ×3 (05:48→23:11)
[2020-09-11 06:18] LABS: Basophils # 0.1 10^3/uL (0.0-0.1); Basophils % 1.7 %; Eosinophils # 0.1 10^3/uL (0.0-0.8); Eosinophils % 1.7 %; Hematocrit 30.9 % (42.0-52.0); Hemoglobin 8.9 g/dL (11.7-16.6); Lymphocytes # 2.2 10^3/uL (0.8-4.8); Mean Corpuscular HGB Conc 28.8 g/dL (30.0-36.0); Mean Corpuscular Hemoglobin 32.1 pg (28.0-34.0); Mean Corpuscular Volume 111.6 fL (80-94); Mean Platelet Volume 9.2 fL (7.4-10.4); Monocytes # 0.7 10^3/uL (0.2-0.9); Monocytes % 9.5 %; Neutrophils # 4.32 10^3/uL (1.8-7.7); Nucleated Red Blood Cells % 0 %; Platelet Count 409 10^3/cmm (130-400); Red Blood Count 2.77 10^6/uL (4.1-5.3); Red Cell Distribution Width 18.4 % (12.1-15.1); White Blood Count 7.6 10^3/uL (4.0-10.0)
[2020-09-11 06:29] LABS: Anion Gap 12.4 (5-19); Blood Urea Nitrogen 10 mg/dL (6-20); Carbon Dioxide 29 mmol/L (22-29); Chloride 106 mmol/L (98-107); Glomerular Filtration Rate 221.7 mL/min (90-130); Glucose 79 mg/dL (65-115); Osmolality Calculated 296 mOsm/kg (285-295); Potassium 3.4 mmol/L (3.5-5.1); Sodium 144 mmol/L (136-145)
[2020-09-11] MEDS: thiamine 100 mg Tablet PO (08:30)
[2020-09-11] MEDS: tamsulosin 0.4 mg Capsule PO (08:30)
[2020-09-11] MEDS: pantoprazole DR 40 mg Tablet PO ×2 (08:30→21:15)
[2020-09-11] MEDS: nicotine 14 mg Patch 1 PATCH TRANSDERMA (08:30)
[2020-09-11] MEDS: folic acid 1 mg Tablet PO (08:30)
[2020-09-11] MEDS: levETIRAcetam 500 mg Tablet PO ×2 (08:30→21:15)
[2020-09-11] MEDS: predniSONE 20 mg Tablet PO (08:30)
[2020-09-11] MEDS: metoprolol tartrate 25 mg Tablet PO ×2 (08:30→21:15)
[2020-09-11] MEDS: multivitamin therapeutic Tablet 1 TAB PO (08:30)
[2020-09-11] MEDS: LORazepam 2 mg Tablet PO (08:37)
--- NOTE | 2020-09-11 14:20 | P.PN_ITS ---
Subjective Subjective: Interval history: Hospital course and labs appreciated. Examination patient on phone with his friend. He is a lot more awake today. Alert and oriented to self, time, place. He is complaining of epigastric pain. Denies any nausea, vomiting. Did receive p.o. Ativan early in the morning for high CIWA score. Currently CIWA score seems to be around 4 Medications: Reviewed: Yes Vitals/I&O/Wt Last Vital Signs Temp 98.3 F 09/11/20 11:06 Pulse 102 H 09/11/20 13:43 Resp 18 09/11/20 13:39 BP 98/62 09/11/20 11:06 Pulse Ox 96 09/11/20 13:39 09/10/20 09/11/20 09/11/20 22:59 06:59 14:59 Intake Total 0 / 530 360 / 360 Output Total 650 / 900 350 / 1250 Balance -650 / -370 -350 / -720 360 / 360 Weight last 48 hrs Weight 55.656 kg Weight 59.012 kg Physical Exam Narrative: EXAM NARRATIVE: General: No acute distress, AO x3, tremors present, CIWA 5 HEENT: PERRLA, pupils bilaterally equal and reactive Chest: Normal vesicular breath sounds, coarse crackles present on the lung pierre, more so on the right lower zone, equal good air entry bilaterally CVS: S1-S2 regular, no murmurs, tachycardia, no gallops, no rubs Abdomen: Soft, generalized abdominal pain, no guarding, no organomegaly, bowel sounds present but sluggish Neuro: No focal deficits, no facial deformity, AO x3, power 5/5 in all limbs Urinary Catheter Management^: Orourke: Cath Placed During This Visit: yes, but has since been removed by the nurse Reason for Continuing Indwelling Catheter: Assist healing open wound Urinary Catheter Date of Insertion: 09/04/20 Urinary Catheter Time of Insertion: 10:00 Date Urinary Catheter Removed: 09/03/20 Time Urinary Catheter Discontinued: 15:30 Data : 09/11/20 06:00 09/11/20 06:00 A&P Assessment and plan (1) Alcohol withdrawal delirium: CIWA improving. AOx3. He is still tremulous. Continue Librium 10 mg every 8 hours, Ativan as needed. Received magnesium replacement. Not tolerating potassium replacement once a day, will switch to oral. Maintain aspiration precautions. Speech therapy follow-up. Case management working on disposition planning. Status: Acute (2) At high risk for aspiration: Oral intake improving. At risk of aspiration. Continue aspiration precautions. ST. Status: Acute (3) Acute respiratory failure with hypoxemia: Secondary to COPD exacerbation with aspiration pneumonia. Improving now. Off antibiotics. Oxygen supplementation keeping saturation over 92%. DuoNebs every 6 hours. Prednisone 10 mg for 3 more days. Weaning today. Dysphagia 1 diet as per aspiration precautions and speech and swallow evaluation. Case discussed with pulmonology on board. Noted decrease in pleural effusion. Status: Acute (4) Hypotension: Resolved. Blood pressures rather variable. Monitor. So far tolerating resumed Flomax. Hypotension so far has resolved, has not required pressors. Monitor. Status: Acute (5) Alcohol withdrawal seizure with delirium: Continue support with benzodiazepines for protracted alcohol withdrawal. Keppra. Status: Acute (6) AMS (altered mental status): Very slow improvement. Persistent DTs, severe alcohol withdrawal. Continue supportive care. Status: Acute Qualifiers: Altered mental status type: transient alteration of awareness Qualified Code(s): R40.4 - Transient alteration of awareness (7) Acute alcohol intoxication: Resolved Status: Acute Qualifiers: Complication of substance-induced condition: uncomplicated Qualified Code(s): F10.920 - Alcohol use, unspecified with intoxication, uncomplicated (8) Gastritis: PPI and Carafate with meals and at bedtime. Status: Acute (9) Anemia: Appears stable posttransfusion Gastritis, duodenitis Status: Acute (10) Hypoxia: Status: Acute (11) COPD (chronic obstructive pulmonary disease): Status: Acute Qualifiers: COPD type: unspecified COPD Qualified Code(s): J44.9 - Chronic obstruct corbin pulmonary disease, unspecified (12) Urinary retention: Orourke. Monitor for recurrence of retention with voiding trial. Flomax restarted and has tolerated it so far. Consider repeat voiding trial. Status: Acute (13) Diarrhea: To rule out C. difficile. Status: Acute (14) Aspiration pneumonia: As above. Status: Acute Qualifiers: Aspiration pneumonia type: due to regurgitated food Laterality: right Lung location: lower lobe of lung Qualified Code(s): J69.0 - Pneumonitis due to inhalation of food and vomit (15) Physical deconditioning: Status: Acute Additional A&P Information Smoking addiction: Nicotine patch History of alcohol abuse Polyuria: Resolved. Most likely secondary to excessive alcohol intake in the past. Discharge planning: Given extreme weakness, multiple episodes of aspiration pneumonia patient would need placement to SNF. Patient is agreeable. Case management has been consulted and is working on the same. Attestations Medical Necessity Statement*: Patient requires further hospitalization for management of alcohol withdrawal delirium, high risk of aspiration, severe decon ditioning while safe discharge planning is sought. Time Spent in Patient Care: Greater than 35 minutes (>than 50% of time spent in counselling and/or direct pt care on unit) . 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 [facility] Fwd Diagnoses Alcohol withdrawal delirium F10.231 At high risk for aspiration Z91.89 Acute respiratory failure with hypoxemia J96.01 Hypotension I95.9 Alcohol withdrawal seizure with delirium F10.231; R56.9 AMS (altered mental status) R40.4 Altered mental status type: transient alteration of awareness Acute alcohol intoxication F10.920 Complication of substance-induced condition: uncomplicated Gastritis K29.70 Anemia D64.9 Hypoxia R09.02 COPD (chronic obstructive pulmonary disease) J44.9 COPD type: unspecified COPD Urinary retention R33.9 Diarrhea R19.7 Aspiration pneumonia J69.0 Aspiration pneumonia type: due to regurgitated food Laterality: right Lung location: lower lobe of lung Physical deconditioning R53.81
[2020-09-11] MEDS: gabapentin 100 mg Capsule PO (17:57)
[2020-09-11] MEDS: sucralfate 1 gm/10 mL Oral Liq UDC PO (21:15)
[2020-09-11] MEDS: HYDROmorphone 1 mg/mL INJ 1 mL 0.5 MG IVP (23:26)
[2020-09-12] VITALS (18 sets, daily range): BP systolic 105–141; BP diastolic 69–90; PULSE 90–111; RESP 16–22; TEMP 36.6–36.9; O2SAT 90–98
[2020-09-12] MEDS: ipratropium-albuterol 3 mL Neb INHALATION ×4 (03:09→15:27)
[2020-09-12 06:20] LABS: Basophils # 0.1 10^3/uL (0.0-0.1); Basophils % 1.3 %; Eosinophils # 0.1 10^3/uL (0.0-0.8); Eosinophils % 1.6 %; Hematocrit 28.4 % (42.0-52.0); Hemoglobin 8.5 g/dL (11.7-16.6); Lymphocytes % 28.9 %; Mean Corpuscular HGB Conc 29.9 g/dL (30.0-36.0); Mean Corpuscular Hemoglobin 32.7 pg (28.0-34.0); Mean Corpuscular Volume 109.2 fL (80-94); Mean Platelet Volume 9.6 fL (7.4-10.4); Monocytes # 0.7 10^3/uL (0.2-0.9); Neutrophils # 4.07 10^3/uL (1.8-7.7); Neutrophils % 57.5 %; Nucleated Red Blood Cells % 0 %; Platelet Count 407 10^3/cmm (130-400); Red Cell Distribution Width 18.8 % (12.1-15.1); White Blood Count 7.1 10^3/uL (4.0-10.0)
[2020-09-12] MEDS: sucralfate 1 gm/10 mL Oral Liq UDC PO ×4 (06:50→21:36)
[2020-09-12] MEDS: chlordiazePOXIDE 10 mg Capsule PO ×3 (06:50→17:48)
[2020-09-12 06:56] LABS: Alanine Aminotransferase 28 U/L (0-41); Alkaline Phosphatase 76 IU/L (40-130); Anion Gap 10.4 (5-19); Aspartate Amino Transferase 30 U/L (0-40); Blood Urea Nitrogen 11 mg/dL (6-20); Calcium 7.9 mg/dL (8.5-10.5); Carbon Dioxide 31 mmol/L (22-29); Chloride 105 mmol/L (98-107); Globulin 2.6 g/dL (1.3-4.6); Glucose 88 mg/dL (65-115); Osmolality Calculated 295 mOsm/kg (285-295); Potassium 3.4 mmol/L (3.5-5.1); Sodium 143 mmol/L (136-145); Total Bilirubin 0.2 mg/dL (0.15-1.2); Total Protein 5.6 g/dL (6.6-8.7)
[2020-09-12] MEDS: levETIRAcetam 500 mg Tablet PO ×2 (08:46→21:35)
[2020-09-12] MEDS: pantoprazole DR 40 mg Tablet PO ×2 (08:46→21:35)
[2020-09-12] MEDS: tamsulosin 0.4 mg Capsule PO (08:46)
[2020-09-12] MEDS: folic acid 1 mg Tablet PO (08:46)
[2020-09-12] MEDS: multivitamin therapeutic Tablet 1 TAB PO (08:46)
[2020-09-12] MEDS: thiamine 100 mg Tablet PO (08:46)
[2020-09-12] MEDS: gabapentin 100 mg Capsule PO ×2 (08:46→17:31)
[2020-09-12] MEDS: predniSONE 20 mg Tablet 10 MG PO (08:47)
[2020-09-12] MEDS: nicotine 14 mg Patch 1 PATCH TRANSDERMA (08:48)
[2020-09-12] MEDS: metoprolol tartrate 25 mg Tablet PO ×2 (08:49→21:35)
[2020-09-12] MEDS: LORazepam 0.5 mg Tablet PO ×2 (12:34→18:46)
--- NOTE | 2020-09-12 14:46 | PM.PN ---
Subjective Subjective: Interval history: No acute events overnight. Patient denies any nausea, vomiting, headache. Patient is a lot more awake. Complaining of generalized body pain. He states he has been having diarrhea though is confirming with the nurse he has not had any bowel movement since last night. Patient is alert oriented to self and place but not to the ER which seems to be consistent with his examination from yesterday. Has remained hemodynamically stable and afebrile overnight. Medications: Reviewed: Yes Vitals/I&O/Wt Last Vital Signs Temp 98.0 F 09/12/20 11:53 Pulse 90 09/12/20 11:53 Resp 16 09/12/20 11:53 BP 107/72 09/12/20 11:53 Pulse Ox 93 09/12/20 13:51 09/11/20 09/12/20 09/12/20 22:59 06:59 14:59 Intake Total 240 / 600 480 / 480 Output Total 825 / 1825 Balance 240 / -400 -825 / -1225 480 / 480 Weight last 48 hrs Weight 58.423 kg Weight 55.656 kg Physical Exam Narrative: EXAM NARRATIVE: General: No acute distress, AO x3, tremors present, CIWA 5-8 HEENT: PERRLA, pupils bilaterally equal and reactive Chest: Normal vesicular breath sounds, coarse crackles present on the lung pierre, more so on the right lower zone, equal good air entry bilaterally CVS: S1-S2 regular, no murmurs, tachycardia, no gallops, no rubs Abdomen: Soft, generalized abdominal pain, no guarding, no organomegaly, bowel sounds present but sluggish Neuro: No focal deficits, no facial deformity, AO x3, power 5/5 in all limbs Urinary Catheter Management^: Orourke: Cath Placed During This Visit: yes, but has since been removed by the nurse Reason for Continuing Indwelling Catheter: Assist healing open wound Urinary Catheter Date of Insertion: 09/04/20 Urinary Catheter Time of Insertion: 10:00 Date Urinary Catheter Removed: 09/03/20 Time Urinary Catheter Discontinued: 15:30 Data : 09/12/20 05:40 09/12/20 05:40 A&P Assessment and plan (1) Alcohol withdrawal delirium: CIWA improving. AOx3. He is still tremulous. Wean Librium to 10 mg twice daily. Start patient on Ativan 0.5 mg every 8 hours. Received magnesium replacement. Maintain aspiration precautions. Speech therapy follow-up. Case management working on disposition planning. Status: Acute (2) At high risk for aspiration: Oral intake improving. At risk of aspiration. Continue aspiration precautions. ST. Status: Acute (3) Acute respiratory failure with hypoxemia: Secondary to COPD exacerbation with aspiration pneumonia. Improving now. Off antibiotics. Oxygen supplementation keeping saturation over 92%. DuoNebs every 8 hours. Stop Mucomyst. Tapering prednisone. 10 mg 2/3. Dysphagia 1 diet as per aspiration precautions and speech and swallow evaluation. Case discussed with pulmonology on board. Noted decrease in pleural effusion. Status: Acute (4) Hypotension: Resolved. Blood pressures rather variable. Monitor. So far tolerating resumed Flomax. Hypotension so far has resolved, has not required pressors. Monitor. Status: Acute (5) Alcohol withdrawal seizure with delirium: Continue support with benzodiazepines for protracted alcohol withdrawal. Keppra. Status: Acute (6) AMS (altered mental status): Cannot rule out Warnicke's encephalopathy. MR brain if possible. Thiamine 250 mg IM for next 3 days. Continue oral supplementation as well. Very slow improvement. Persistent DTs, severe alcohol withdrawal. Continue supportive care. Status: Acute Qualifiers: Altered mental status type: transient alteration of awareness Qualified Code(s): R40.4 - Transient alteration of awareness (7) Acute alcohol intoxication: Resolved Status: Acute Qualifiers: Complication of substance-induced condition: uncomplicated Qualified Code(s): F10.920 - Alcohol use, unspecified with intoxication, uncomplicated (8) Gastritis: PPI and Carafate with meals and at bedtime. Status: Acute (9) Anemia: Appears stable posttransfusion Gastritis, duodenitis Status: Acute (10) Hypoxia: Status: Acute (11) COPD (chronic obstructive pulmonary disease): Status: Acute Qualifiers: COPD type: unspecified COPD Qualified Code(s): J44.9 - Chronic obstructive pulmonary disease, unspecified (12) Urinary retention: Orourke. Monitor for recurrence of retention with voiding trial. Flomax restarted and has tolerated it so far. Consider repeat voiding trial. Status: Acute (13) Diarrhea: To rule out C. difficile. Status: Acute (14) Aspiration pneumonia: As above. Status: Acute Qualifiers: Aspiration pneumonia type: due to regurgitated food Laterality: right Lung location: lower lobe of lung Qualified Code(s): J69.0 - Pneumonitis due to inhalation of food and vomit (15) Physical deconditioning: Status: Acute Additional A&P Information Smoking addiction: Nicotine patch History of alcohol abuse Polyuria: Resolved. Most likely secondary to excessive alcohol intake in the past. Discharge planning: Given extreme weakness, multiple episodes of aspiration pneumonia patient would need placement to SNF. Patient is agreeable. Case management has been consulted and is working on the same. Attestations Medical Necessity Statement*: Requires further hospitalization for management of alcohol withdrawal delirium, possible Wernicke's while safe discharge planning is sought due to severe physical deconditioning, ongoing aspiration risk. Time Spent in Patient Care: Greater than 35 minutes (>than 50% of time spent in counselling and/or direct pt care on unit). 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 [facility] Fwd Diagnoses Alcohol withdrawal delirium F10.231 At high risk for aspiration Z91.89 Acute respiratory failure with hypoxemia J96.01 Hypotension I95.9 Alcohol withdrawal seizure with delirium F10.231; R56.9 AMS (altered mental status) R40.4 Altered mental status type: transient alteration of awareness Acute alcohol intoxication F10.920 Complication of substance-induced condition: uncomplicated Gastritis K29.70 Anemia D64.9 Hypoxia R09.02 COPD (chronic obstructive pulmonary disease) J44.9 COPD type: unspecified COPD Urinary retention R33.9 Diarrhea R19.7 Aspiration pneumonia J69.0 Aspiration pneumonia type: due to regurgitated food Laterality: right Lung location: lower lobe of lung Physical deconditioning R53.81
[2020-09-12] MEDS: TRAMadol 50 mg Tablet PO (15:35)
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
--- NOTE | 2020-09-12 21:26 | XRR_ITS ---
PROCEDURE INFORMATION: Exam: XR Left Shoulder Exam date and time: 09/12/2020 9:35 PM Age: 59 years old Clinical indication: Injury or trauma; Fall; Blunt trauma (contusions or hematomas); Shoulder; Left; Injury date: 09/12/2020 TECHNIQUE: Imaging protocol: XR Left shoulder. Views: 1 view. COMPARISON: No relevant prior studies available. FINDINGS: Bones/joints: No acute fractures. No evidence of joint dislocation. Elevated humeral head with narrowing of subacromial space suggestive of underlying rotator tearing or dysfunction. Hypertrophic osseous spurring of distal clavicle and acromion process. Suspect old left posterior rib fractures. Soft tissues: Normal. XR/XR shoulder LT 1V [id number] IMPRESSION: No acute fractures are identified.
[2020-09-12 21:34] LABS: Glucose Point of Care 119 mg/dL (70-110)
--- NOTE | 2020-09-12 23:15 | PM.EVENT ---
Event Note Event Note: I was called by Gayathri to evaluate the patient after a fall. When I entered the room patient was laying supine comfortably in his bed he was awake, alert oriented x3 GCS 15 NIH 0 Blood sugar 119 mg/dL Patient was able to tell me that he was trying to walk in the room with a walker when because of his excessive tremors he could not balance himself and fell on his right side and his arm twisted around the walker, he is able to tell me that nursing unit coordinator witnessed this fall and called for help When he was evaluated by the nurses, for about 10 to 20 seconds he seemed confused however his mentation improved afterwards, his pupils were reported to be pinpoint and nonreactive however at the time of my evaluation there is symmetrical and normal in dimensions. 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
[2020-09-13] VITALS (14 sets, daily range): BP systolic 105–134; BP diastolic 63–89; PULSE 88–106; RESP 16–23; TEMP 36.6–36.8; O2SAT 84–97
[2020-09-13] MEDS: ipratropium-albuterol 3 mL Neb INHALATION ×4 (00:11→23:30)
[2020-09-13] MEDS: TRAMadol 50 mg Tablet PO ×3 (00:21→21:36)
--- NOTE | 2020-09-13 00:57 | PC.NURSE ---
FALL 2112- JESSICA Dyson, called for help in patient's room. Karis reports she heard a noise and when she came in to the patient's room she found him lying in the floor. When this magnetic tape typewriter operator entered the room the patient was saying my arm hurts then he went silent. BRODIE Hodges assessed the patient's pupils and found them to be twitching from side to side. Patient would not respond for about a minute. Patient began to arouse but pupils were pinpoint and nonreactive. Dr Mijares was notified and patient was assisted back to bed. Patient's oxygen saturation was at 84%. Patient was put back on his 2L nasal cannula and oxygen saturations came up to 91-92%. Patient was able to tell his last name and the year he was born but states he has to think about his first name as he goes by a couple of names. Dr Mijares arrived to room and assessed patient and ordered A CT of the head and a Left shoulder xray and ordered removal of patient's alvarenga catheter. BRETT Zavala attempted to notify the person to notify that is listed in the patient's medical record, but was unsuccessful to reach anyone as the only phone number that is in the chart is a disconnected phone number. Since the fall patient has been resting comfortably in bed and is alert and oriented to person, place, and time but not to situation.
[2020-09-13] MEDS: LORazepam 0.5 mg Tablet PO ×3 (03:32→18:19)
[2020-09-13] MEDS: sucralfate 1 gm/10 mL Oral Liq UDC PO ×4 (06:51→20:56)
[2020-09-13] MEDS: gabapentin 100 mg Capsule PO ×2 (08:50→17:45)
[2020-09-13] MEDS: levETIRAcetam 500 mg Tablet PO (08:50)
[2020-09-13] MEDS: tamsulosin 0.4 mg Capsule PO (08:50)
[2020-09-13] MEDS: nicotine 14 mg Patch 1 PATCH TRANSDERMA (08:50)
[2020-09-13] MEDS: multivitamin therapeutic Tablet 1 TAB PO (08:50)
[2020-09-13] MEDS: pantoprazole DR 40 mg Tablet PO ×2 (08:50→20:56)
[2020-09-13] MEDS: folic acid 1 mg Tablet PO (08:50)
[2020-09-13] MEDS: metoprolol tartrate 25 mg Tablet PO ×2 (08:50→20:56)
[2020-09-13] MEDS: thiamine 100 mg Tablet PO (08:50)
[2020-09-13] MEDS: predniSONE 20 mg Tablet 10 MG PO (08:51)
[2020-09-13] MEDS: chlordiazePOXIDE 10 mg Capsule PO (09:27)
--- NOTE | 2020-09-13 10:15 | MR_ITS ---
WS: [id number] MRI HEAD WITH CONTRAST TECHNIQUE: Sagittal T1, T2 axial, T2 axial FLAIR, axial susceptibility weighted imaging, axial diffus ion weighted images, and coronal T2 images were obtained. Pre and post-T1 axial and post T1 coronal i mages. ADC and FSPGR images. CLINICAL INFORMATION: possible wernicke's encephalopathy COMPARISON: CT head September 12, 2020 FINDINGS: No evidence of restricted diffusion to suggest acute ischemia. Ventricular system and basal cisterns are patent. Moderate small vessel changes with moderate parenchymal volume loss. Small vessel changes in the judi. Normal cerebellum. Normal vascular flow voids at the skull base. No extra axial fluid c ollections. No evidence of mass or mass effect. Paranasal sinuses are well aerated. Mild mucosal thic kening in the left mastoid air cells. No hemosiderin on the susceptibly weighted images. Mild superior vermian atrophy. Small amount of T2 signal abnormality involving the mamillary bodies which are somewhat atrophic. Tiny amount of T2 hype rintensity in the periaqueductal arellano. Findings can be seen with chronic alcoholic encephalopathy. No abnormal enhancement. Normal optic chiasm and pituitary infundibulum. Some images degraded by patient motion. Impression MR/MR head wo/w con [id number] IMPRESSION: 1. No evidence of restricted diffusion to suggest acute ischemia. 2. Moderate small vessel changes with moderate parenchymal volume loss. 3. Small vessel changes in the judi. 4. Findings suggestive of chronic alcoholic encephalopathy described above. 5. No abnormal gadolinium enhancement.
--- NOTE | 2020-09-13 11:22 | PC.OT ---
Attempted to see patient, he was out for MRI. Will attempt later when able.
--- NOTE | 2020-09-13 17:20 | PM.PN ---
Subjective Subjective: Interval history: Overnight patient had a fall which seems mechanical. CT head seems negative. On examination patient seems to be at baseline mentation. He is AO x2-3. Denies any nausea, vomiting, headache. Complaining of generalized body pain. Eating almost 100% of his meals. Still on 2 L oxygen supplementation saturating 95%. Has remained medically stable and afebrile. CIWA 3. Medications: Reviewed: Yes Vitals/I&O/Wt Last Vital Signs Temp 97.8 F 09/13/20 16:00 Pulse 92 09/13/20 16:00 Resp 18 09/13/20 16:00 BP 111/75 09/13/20 16:00 Pulse Ox 97 09/13/20 16:00 09/13/20 09/13/20 09/13/20 06:59 14:59 22:59 Intake Total 360 / 1080 365 / 365 Output Total 240 / 1360 450 / 450 Balance 120 / -280 365 / 365 -450 / -85 Weight last 48 hrs Weight 55.066 kg Weight 58.423 kg Physical Exam Narrative: EXAM NARRATIVE: General: No acute distress, AO x3, tremors present, CIWA 3 HEENT: PERRLA, pupils bilaterally equal and reactive Chest: Normal vesicular breath sounds, coarse crackles present on the lung pierre, more so on the right lower zone, equal good air entry bilaterally CVS: S1-S2 regular, no murmurs, tachycardia, no gallops, no rubs Abdomen: Soft, generalized abdominal pain, no guarding, no organomegaly, bowel sounds present but sluggish Neuro: No focal deficits, no facial deformity, AO x3, power 5/5 in all limbs Urinary Catheter Management^: Orourke: Cath Placed During This Visit: yes, but has since been removed by the nurse Reason for Continuing Indwelling Catheter: Decision to DC Catheter Urinary Catheter Date of Insertion: 09/04/20 Urinary Catheter Time of Insertion: 10:00 Date Urinary Catheter Removed: 09/12/20 Time Urinary Catheter Discontinued: 22:54 Data : 09/12/20 05:40 09/12/20 05:40 Micro: Microbiology 09/11/20 17:23 Stool Lactoferrin - Final Stool Enteric Pathogens (PCR) - Final Parasite Antigen Panel - Final C.difficile Toxin B Gene (PCR) - Final Occult Blood (FIT) - Final A&P Assessment and plan (1) Wernicke encephalopathy: MRI results appreciated. Continue with IM thiamine for 3 days. Continue with oral thiamine. Status: Acute (2) Alcohol withdrawal delirium: CIWA improving. AOx3. He is still tremulous. Wean Librium to 10 mg daily. Start patient on Ativan 0.5 mg every 8 hours. Received magnesium replacement. Maintain aspiration precautions. Speech therapy follow-up. Case management working on disposition planning. Status: Acute (3) At high risk for aspiration: Oral intake improving. At risk of aspiration. Continue aspiration precautions. ST. Status: Acute (4) Acute respiratory failure with hypoxemia: Secondary to COPD exacerbation with aspiration pneumonia. Improving now. Off antibiotics. Remained stable. Oxygen supplementation keeping saturation around 90%. We will try to wean. DuoNebs every 8 hours. Stop Mucomyst. Tapering prednisone. Last dose of 10 mg today. Dysphagia 1 diet as per aspiration precautions and speech and swallow evaluation. Case discussed with pulmonology on board. Noted decrease in pleural effusion. Status: Acute (5) Hypotension: Resolved. Blood pressures rather variable. Monitor. So far tolerating resumed Flomax. Hypotension so far has resolved, has not required pressors. Monitor. Status: Acute (6) Alcohol withdrawal seizure with delirium: Continue support with benzodiazepines for protracted alcohol withdrawal. Keppra. Status: Acute (7) AMS (altered mental status): Secondary to Wernicke's encephalopathy. Has been resolved. Status: Acute Qualifiers: Altered mental status type: transient alteration of awareness Qualified Code(s): R40.4 - Transient alteration of awareness (8) Acute alcohol intoxication: Resolved Status: Acute Qualifiers: Complication of substance-induced condition: uncomplicated Qualified Code(s): F10.920 - Alcohol use, unspecified with intoxication, uncomplicated (9) Gastritis: PPI and Carafate with meals and at bedtime. Status: Acute (10) Anemia: Appears stable posttransfusion Gastritis, duodenitis Status: Acute (11) Hypoxia: Status: Acute (12) COPD (chronic obstructive pulmonary disease): Status: Acute Qualifiers: COPD type: unspecified COPD Qualified Code(s): J44.9 - Chronic obstructive pulmonary disease, unspecified (13) Urinary retention: Orourke. Monitor for recurrence of retention with voiding trial. Flomax restarted and has tolerated it so far. Consider repeat voiding trial. Status: Acute (14) Diarrhea: To rule out C. difficile. Status: Acute (15) Aspiration pneumonia: As above. Status: Acute Qualifiers: Aspiration pneumonia type: due to regurgitated food Laterality: right Lung location: lower lobe of lung Qualified Code(s): J69.0 - Pneumonitis due to inhalation of food and vomit (16) Physical deconditioning: Status: Acute Additional A&P Information Smoking addiction: Nicotine patch History of alcohol abuse Polyuria: Resolved. Most likely secondary to excessive alcohol intake in the past. Discharge planning: Given extreme weakness, multiple episodes of aspiration pneumonia patient would need placement to SNF but unfortunately unable to place because of insurance issues. Patient is refusing as well. Discussed with family members are trying to arrange for somebody to stay with patient for next few days daily regain strength. Attestations Medical Necessity Statement*: Patient was further hospitalization for management of Wernicke's include fatigue, high aspiration risk while safe discharge planning is sought. Time Spent in Patient Care: Greater than 35 minutes (>than 50% of time spent in counselling and/or direct pt care on unit). Coding Level of Care Code Acute Supervisor [employer] for [facility] F[facility] Diagnoses Wernicke encephalopathy E51.2 Alcohol withdrawal delirium F10.231 At high risk for aspiration Z91.89 Acute respiratory failure with hypoxemia J96.01 Hypotension I95.9 Alcohol withdrawal seizure with delirium F10.231; R56.9 AMS (altered mental status) R40.4 Altered mental status type: transient alteration of awareness Acute alcohol intoxication F10.920 Complication of substance-induced condition: uncomplicated Gastritis K29.70 Anemia D64.9 Hypoxia R09.02 COPD (chronic obstructive pulmonary disease) J44.9 COPD type: unspecified COPD Urinary retention R33.9 Diarrhea R19.7 Aspiration pneumonia J69.0 Aspiration pneumonia type: due to regurgitated food Laterality: right Lung location: lower lobe of lung Physical deconditioning R53.81
[2020-09-13] MEDS: levETIRAcetam 500 mg Tablet 250 MG PO (20:56)
[2020-09-14] VITALS (8 sets, daily range): BP systolic 108–131; BP diastolic 73–92; PULSE 85–119; RESP 17–24; TEMP 36.4–37.2; O2SAT 90–98
[2020-09-14] MEDS: LORazepam 0.5 mg Tablet PO ×4 (03:25→23:06)
[2020-09-14 06:40] LABS: Basophils # 0.1 10^3/uL (0.0-0.1); Basophils % 1.4 %; Eosinophils # 0.2 10^3/uL (0.0-0.8); Eosinophils % 2.4 %; Hemoglobin 7.8 g/dL (11.7-16.6); Lymphocytes # 1.4 10^3/uL (0.8-4.8); Lymphocytes % 17.4 %; Mean Corpuscular Hemoglobin 32.1 pg (28.0-34.0); Mean Platelet Volume 9.8 fL (7.4-10.4); Monocytes # 0.6 10^3/uL (0.2-0.9); Neutrophils # 5.66 10^3/uL (1.8-7.7); Neutrophils % 70.3 %; Nucleated Red Blood Cells % 0 %; Platelet Count 361 10^3/cmm (130-400); Red Blood Count 2.43 10^6/uL (4.1-5.3); Red Cell Distribution Width 18.3 % (12.1-15.1)
[2020-09-14] MEDS: sucralfate 1 gm/10 mL Oral Liq UDC PO ×4 (06:40→23:09)
--- NOTE | 2020-09-14 06:44 | PC.NURSE ---
SHIFT SUMMARY Has rested well tonight. Is quite tremory and has no balance when he tries to sit up on side of bed. Has been incont of urine and bowels and used urinal couple of times as well. Has c/o generalized pain and received po Tramadol per request X1. Has confusion as to date month and year and tells me that sometimes he sees and hears things. Leaves his O2 in his mouth and says it is a tooth.
[2020-09-14 07:03] LABS: Alanine Aminotransferase 25 U/L (0-41); Albumin Level 2.7 g/dL (3.5-5.2); Alkaline Phosphatase 76 IU/L (40-130); Anion Gap 10.9 (5-19); Aspartate Amino Transferase 25 U/L (0-40); Blood Urea Nitrogen 8 mg/dL (6-20); Carbon Dioxide 31 mmol/L (22-29); Chloride 104 mmol/L (98-107); Globulin 2.8 g/dL (1.3-4.6); Glucose 80 mg/dL (65-115); Osmolality Calculated 291 mOsm/kg (285-295); Potassium 3.9 mmol/L (3.5-5.1); Sodium 142 mmol/L (136-145); Total Bilirubin 0.3 mg/dL (0.15-1.2); Total Protein 5.5 g/dL (6.6-8.7)
[2020-09-14] MEDS: predniSONE 20 mg Tablet 10 MG PO (08:49)
[2020-09-14] MEDS: tamsulosin 0.4 mg Capsule PO (08:49)
[2020-09-14] MEDS: levETIRAcetam 500 mg Tablet 250 MG PO ×2 (08:50→23:06)
[2020-09-14] MEDS: multivitamin therapeutic Tablet 1 TAB PO (08:50)
[2020-09-14] MEDS: pantoprazole DR 40 mg Tablet PO ×2 (08:50→23:08)
[2020-09-14] MEDS: metoprolol tartrate 25 mg Tablet PO ×2 (08:50→23:08)
[2020-09-14] MEDS: chlordiazePOXIDE 10 mg Capsule PO (08:50)
[2020-09-14] MEDS: folic acid 1 mg Tablet PO (08:50)
[2020-09-14] MEDS: thiamine 100 mg Tablet PO (08:50)
[2020-09-14] MEDS: gabapentin 100 mg Capsule PO ×2 (08:51→17:26)
[2020-09-14 13:16] LABS: Lipase 9 U/L (13-60)
--- NOTE | 2020-09-14 14:15 | PM.PN ---
Subjective Medications: Reviewed: Yes Vitals/I&O/Wt Last Vital Signs Temp 97.6 F 09/14/20 11:48 Pulse 113 H 09/14/20 11:48 Resp 17 09/14/20 11:48 BP 110/79 09/14/20 11:48 Pulse Ox 94 09/14/20 11:48 09/13/20 09/14/20 09/14/20 22:59 06:59 14:59 Intake Total 420 / 785 120 / 905 720 / 720 Output Total 825 / 825 650 / 1475 Balance -405 / -40 -530 / -570 720 / 720 Weight last 48 hrs Weight 121 lb 8 oz Weight 121 lb 6.4 oz Physical Exam Narrative: EXAM NARRATIVE: General:bit more alert, responding appropriately to questions HEENT:NCAT, PERRLA, EOMI Neck: Supple Lungs: Improving breath sounds on the right lower lobe Heart: s1/s2, RRR Abd:epigastic tenderness, soft, , ND, BS + Normoactive Extremities: No edema COLLECTIONS DIRECTOR: Drowsy, 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, moving all limbs, strength 4 x 5, no gross sensory defects, sitting out of bed to chair SKIN: no rash Urinary Catheter Management^: Orourke: Cath Placed During This Visit: yes, but has since been removed by the nurse Reason for Continuing Indwelling Catheter: Decision to DC Catheter Urinary Catheter Date of Insertion: 09/04/20 Urinary Catheter Time of Insertion: 10:00 Date Urinary Catheter Removed: 09/12/20 Time Urinary Catheter Discontinued: 21:00 Data : 09/14/20 06:13 09/14/20 06:13 Other Labs: Laboratory Results WBC 8.0 10^3/uL (4.0-10.0) 09/14/20 06:13 Corrected WBC Cancelled 09/04/20 03:27 RBC 2.43 10^6/uL (4.1-5.3) L 09/14/20 06:13 Hgb 7.8 g/dL (11.7-16.6) L 09/14/20 06:13 Hct 26.0 % (42.0-52.0) L 09/14/20 06:13 MCV 107.0 fL (80-94) H 09/14/20 06:13 MCH 32.1 pg (28.0-34.0) 09/14/20 06:13 MCHC 30.0 g/dL (30.0-36.0) 09/14/20 06:13 RDW 18.3 % (12.1-15.1) H 09/14/20 06:13 Plt Count 361 10^3/cmm (130-400) 09/14/20 06:13 MPV 9.8 fL (7.4-10.4) 09/14/20 06:13 Gran % Cancelled 09/04/20 03:27 Neut % (Auto) 70.3 % 09/14/20 06:13 Lymph % (Auto) 17.4 % 09/14/20 06:13 [place] % (Auto) 8.0 % 09/14/20 06:13 Eos % (Auto) 2.4 % 09/14/20 06:13 Baso % (Auto) 1.4 % 09/14/20 06:13 Neut # (Auto) 5.66 10^3/uL (1.8-7.7) 09/14/20 06:13 Lymph # (Auto) 1.4 10^3/uL (0.8-4.8) 09/14/20 06:13 [place] # (Auto) 0.6 10^3/uL (0.2-0.9) 09/14/20 06:13 Eos # (Auto) 0.2 10^3/uL (0.0-0.8) 09/14/20 06:13 Baso # (Auto) 0.1 10^3/uL (0.0-0.1) 09/14/20 06:13 Absolute Gran (auto) Cancelled 09/04/20 03:27 Nucleated RBC % (auto) 0 % 09/14/20 06:13 Nucleated RBCs # 0.0 /100WBC 09/14/20 06:13 PT 12.70 SECONDS (12.1-14.9) 08/28/20 11:00 INR 0.93 (0.8-1.2) 08/28/20 11:00 Specimen Type Arterial 09/05/20 05:31 Sample Site Radial, right 09/05/20 05:31 ABG pH 7.51 (7.35-7.45) H 09/05/20 05:31 ABG pCO2 40.4 mmHg (35-45) 09/05/20 05:31 ABG pO2 47.7 mmHg (80.0-100.0) L 09/05/20 05:31 ABG HCO3 31.8 mmol/L (22-26) H 09/05/20 05:31 ABG O2 Saturation 89.4 08/28/20 10:40 ABG Base Excess 8.0 mmol/L (-2.0-2.0) H 09/05/20 05:31 Vasyl Test Pos 09/05/20 05:31 A-a O2 Gradient 5.6 mmHg (5-10) 08/28/20 10:40 Hematocrit 25.8 % (42-52) L 09/05/20 05:31 Hgb O2 Saturation 86.6 % (95-100) L 08/28/20 10:40 Carboxyhemoglobin 2.4 %THgb (0.4-20.1) 08/28/20 10:40 Methemoglobin 0.8 % (0.4-1.5) 08/28/20 10:40 Total Hemoglobin 8.9 g/dL (14-18) L 08/28/20 10:40 Sodium 137.0 mmol/L (131-143) 08/28/20 10:40 Potassium 3.0 mmol/L (3.5-5.0) L 08/28/20 10:40 Glucose 137.0 mg/dL (70-115) H 08/28/20 10:40 Ionized Calcium 1.1 mmol/L (1.1-1.4) 08/28/20 10:40 O2 Delivery Device Hag 09/05/20 05:31 O2 Liters/Min 35.0 % 09/05/20 05:31 FiO2 40.0 % 09/05/20 05:31 Staffing Account Manager ID Hieu 09/05/20 05:31 Sodium 142 mmol/L (136-145) 09/14/20 06:13 Potassium 3.9 mmol/L (3.5-5.1) 09/14/20 06:13 Chloride 104 mmol/L (98-107) 09/14/20 06:13 Carbon Dioxide 31 mmol/L (22-29) H 09/14/20 06:13 Anion Gap 10.9 (5-19) 09/14/20 06:13 BUN 8 mg/dL (6-20) 09/14/20 06:13 Creatinine 0.3 mg/dL (0.7-1.2) L 09/14/20 06:13 GFR Calculation 309.0 mL/min (90-130) H 09/14/20 06:13 Glucose 80 mg/dL (65-115) 09/14/20 06:13 POC Glucose 119 mg/dL (70-110) H 09/12/20 21:30 Estimat Average Glucose 80 08/29/20 04:45 Hemoglobin A1c 4.4 % (4.0-6.0) 08/29/20 04:45 Calculated Osmolality 291 mOsm/kg (285-295) 09/14/20 06:13 Lactic Acid 3.8 mmol/L (0.5-2.2) H 08/28/20 11:00 Lactic Acid (Sepsis) 2.2 mmol/L (0.5-2.2) 08/28/20 13:58 Calcium 8.0 mg/dL (8.5-10.5) L 09/14/20 06:13 Phosphorus 3.9 mg/dL (2.5-4.5) 08/29/20 04:45 Magnesium 1.9 mg/dL (1.7-2.3) 09/09/20 02:34 Iron 166 ug/dL (59-158) H 08/28/20 11:00 TIBC 182.78281 mcg/dl 08/28/20 11:00 % Saturation 90.0 % (20-50) H 08/28/20 11:00 Unsat Iron Binding < 17 ug/dL (112-347) L 08/28/20 11:00 Ferritin 2830 ng/mL (30-400) H 08/28/20 11:00 Total Bilirubin 0.3 mg/dL (0.15-1.2) 09/14/20 06:13 AST 25 U/L (0-40) 09/14/20 06:13 ALT 25 U/L (0-41) 09/14/20 06:13 Alkaline Phosphatase 76 IU/L (40-130) 09/14/20 06:13 Ammonia 19 umol/L (16-60) 08/28/20 11:00 Creatine Kinase 190 U/L (39-308) 08/28/20 11:00 Troponin T Baseline 21 ng/L (0-15) H 08/28/20 11:00 Troponin T 120 Minute 17.79 ng/L (0-15) H 08/28/20 13:00 Delta Troponin T -3.21 ABS# (0-10) L 08/28/20 13:00 Troponin T Hi Sens 6Hr 15.12 ng/L (0-15) H 08/28/20 17:39 Troponin T Hi Sens 6Hr Delta -5.88 ng/L (0-12) L 08/28/20 17:39 C-Reactive Protein 10.1 mg/L (0.0-4.9) H 08/28/20 11:00 NT-Pro-B Natriuret Pep 1372 pg/mL (0-125) H 09/01/20 23:45 Total Protein 5.5 g/dL (6.6-8.7) L 09/14/20 06:13 Albumin 2.7 g/dL (3.5-5.2) L 09/14/20 06:13 Globulin 2.8 g/dL (1.3-4.6) 09/14/20 06:13 Amylase 39 U/L (28-100) 09/06/20 16:54 Lipase 9 U/L (13-60) L 09/14/20 06:13 Vitamin B12 788 pg/mL (232-1245) 08/28/20 11:00 Folate 2.0 ng/mL (4.5-32.2) L 08/28/20 11:00 Procalcitonin 0.12 ng/mL (0-0.5) 09/06/20 04:34 TSH 2.34 uIU/mL (0.27-4.20) 08/28/20 11:00 Urine Color Yellow (Yellow) 09/04/20 11:00 Urine Appearance Clear (CLEAR) 09/04/20 11:00 Urine pH 6.5 (5-7) 09/04/20 11:00 Ur Specific [place] 1.010 (1.005-1.030) 09/04/20 11:00 Urine Protein Neg (Negative) 09/04/20 11:00 Urine Glucose (UA) 1+ (Normal) 09/04/20 11:00 Urine Ketones Negative (Negative) 09/04/20 11:00 Urine Blood Neg (Negative) 09/04/20 11:00 Urine Nitrate Negative (Negative) 09/04/20 11:00 Urine Bilirubin Neg (Negative) 09/04/20 11:00 Urine Urobilinogen 1 mg/dL (Negative) H 09/04/20 11:00 Ur Leukocyte Esterase Negative (Negative) 09/04/20 11:00 Urine RBC 0-4 /hpf (0-2) H 08/28/20 12:19 Urine WBC None /hpf (0-5) 08/28/20 12:19 Ur Squamous Epith Cells 0-4 /hpf (0-5) H 08/28/20 12:19 Amorphous Sediment Not Reportable 08/28/20 12:19 Urine Bacteria Trace /hpf (NONE) 08/28/20 12:19 Hyaline Casts 25-40 /lpf H 08/28/20 12:19 Urine Mucus 2+ /hpf 08/28/20 12:19 Urine Osmolality 593 mOsm/kg (50-1200) 09/01/20 15:15 Ur Random Sodium 162 mmol/L 09/01/20 15:15 Ur Random Potassium 66 mmol/L 09/01/20 15:15 Ur Random Chloride 241 mmol/L 09/01/20 15:15 Vancomycin Trough 13.4 ug/mL (10-15) 09/06/20 16:54 Urine Opiates Screen Negative ng/mL (Negative) 08/28/20 12:19 Ur Barbiturates Screen Negative ng/mL (Negative) 08/28/20 12:19 Levetiracetam 24.3 mcg/mL 08/31/20 04:35 Ur Phencyclidine Scrn Negative ng/mL (Negative) 08/28/20 12:19 Ur Amphetamines Screen Negative ng/mL (Negative) 08/28/20 12:19 U Benzodiazepines Scrn Negative ng/mL (Negative) 08/28/20 12:19 Urine Cocaine Screen Negative ng/mL (Negative) 08/28/20 12:19 U Marijuana (THC) Screen Negative ng/mL (Negative) 08/28/20 12:19 Ethyl Alcohol 314 mg/dL (0-10) H* 08/28/20 11:00 H. pylori IgG Antibody Negative (Negative) 09/04/20 03:27 SARS-CoV-2 Ag (Rapid) Negative (Negative) 09/04/20 11:00 Blood Type O Positive 08/29/20 12:12 Rho(D) Type Positive / 4+ 08/29/20 12:12 Antibody Screen Negative 08/29/20 12:12 Crossmatch See Detail 08/29/20 12:[address] 08/28/20 10:15 IMPRESSION: 1. Small amount of subcutaneous edema overlying the distal sacrum with a tiny amount of induration extending along the upper gluteal cleft and perirectal soft tissues. No evidence of drainable abscess or fluid collection. No definite evidence of perirectal fistula. 2. Urine distended bladder. 3. Rectal constipation. 4. Diffuse fatty infiltration of the liver. Notified KYLIE Newton at 08/28/2020 12:03 PM. Gallbladder Ultrasound 08/28/20 12:01 IMPRESSION: 1. Hepatomegaly with diffuse fatty infiltration. 2. Tiny gallstones or sludge in the gallbladder. No gallbladder wall thickening or pericholecystic fluid. 3. No hydronephrosis in right kidney. Abdomen/Pelvis CT 08/28/20 15:47 IMPRESSION: 1. Patchy consolidation in the left lower lobe concerning for pneumonia. 2. Fatty infiltration of the liver. 3. Large formed stool in the rectum. 4. Fat containing umbilical hernia. COMMENTS: Consistent with the [employer]'s Incidental Findings Committee white paper (J Am Ronit Radiol 2018): Any incidental renal lesion less than 1 cm or classified as too small to characterize, or any incidental cystic renal lesion characterized as simple-appearing, is likely benign. No follow-up imaging is recommended for these lesions per consensus recommendations based on imaging criteria. Radiation Dose CTDIVOL = (mGy): DLP = 714.84 (mGy-cm) Chest CT 08/29/20 10:50 IMPRESSION: 1. Patchy infiltrate in left lower lobe with small left pleural effusion. Patchy infiltrates in the left lower lobe are similar to previous with slight improvement. Recommend follow-up to resolution. Findings suspicious for pneumonia. 2. Small left pleural effusion is new from previous. 3. Moderate chronic emphysematous changes. 4. Multiple subacute and chronic rib fractures previously described. 5. No mediastinal or hilar lymphadenopathy. Modified Barium Swallow 09/05/20 09:12 IMPRESSION: 1. The patient tolerated thin liquid, thick liquid and nectar consistency barium foodstuffs without aspiration or penetration. The speech therapy department will also report findings and recommendations. Chest X-Ray 09/10/20 20:24 IMPRESSION: 1. Bibasilar atelectasis versus minimal infiltrate decreased compared to prior exam. 2. Emphysematous changes suspected. Head CT 09/12/20 21:25 IMPRESSION: Negative for acute intracranial injury. Radiation Dose CTDIVOL = (mGy): DLP = 1355.41 (mGy-cm) Shoulder X-Ray 09/12/20 21:26 IMPRESSION: No acute fractures are identified. Head MRI 09/13/20 10:15 IMPRESSION: 1. No evidence of restricted diffusion to suggest acute ischemia. 2. Moderate small vessel changes with moderate parenchymal volume loss. 3. Small vessel changes in the judi. 4. Findings suggestive of chronic alcoholic encephalopathy described above. 5. No abnormal gadolinium enhancement. Micro: Microbiology 09/11/20 17:23 Stool Lactoferrin - Final Stool Enteric Pathogens (PCR) - Final Parasite Antigen Panel - Final C.difficile Toxin B Gene (PCR) - Final Occult Blood (FIT) - Final A&P Assessment and plan (1) AMS (altered mental status): Status: Acute Qualifiers: Altered mental status type: transient alteration of awareness Qualified Code(s): R40.4 - Transient alteration of awareness (2) Alcohol withdrawal seizure with delirium: Status: Acute (3) Alcoholism: Status: Acute (4) Hypoxia: Status: Acute (5) COPD (chronic obstructive pulmonary disease): Status: Acute Qualifiers: COPD type: unspecified COPD Qualified Code(s): J44.9 - Chronic obstructive pulmonary disease, unspecified (6) Aspiration pneumonia: Status: Acute Qualifiers: Aspiration pneumonia type: due to regurgitated food Laterality: right Lung location: lower lobe of lung Qualified Code(s): J69.0 - Pneumonitis due to inhalation of food and vomit (7) At high risk for aspiration: Status: Acute (8) Melena: Status: Acute (9) Seizure: Status: Acute (10) Sepsis: Status: Acute Qualifiers: Sepsis acute organ dysfunction status: without acute organ dysfunction Sepsis type: sepsis due to unspecified organism Qualified Code(s): A41.9 - Sepsis, unspecified organism (11) Unspecified pleural effusion: Status: Acute # Altered mental status due to alcohol delirium-slowly recovering #MRA head findings suggestive of chronic alcoholic encephalopathy-possible Wernicke's # Acute hypoxic respiratiory failure due to COPD exacerbation and aspiration pneumonia # At high risk for aspiration and intubation # Drop in H & H - S/P 1 Unit prbc - secondary to gastritis #Epigastric pain and tenderness-lipase 9-likely gastritis - Currently on room air- saturating 95% and sitting out of bed to chair - Hemodynamically stable -Improving alertness, reducing tremors-overall CIWA improving - Keppra 250 mg PO bid for seizures -On weaning dose of Librium-currently 10 mg daily and on Ativan 0.5 mg every 8 hours -Continue MBT/FA/thiamine -Monitor electrolytes and supplement to keep magnesium more than 2 and potassium greater than 4 -Chest x-ray 09/10/2020: Bibasilar atelectasis versus minimal infiltrate decreased compared to previous chest x-rays. Emphysematous changes suspected. -Echo 09/02/20: Poor ultrasonic windows. LV systolic function is normal with EF of 60-65%. Valvular structures not well visualized but no gross abnormalities. No comparison studies are available. -sputum cultures positive for pansensitive Proteus mirabilis, MRSA nares negative-s/p imipenem and Levaquin for 5 days; afebrile, normal WBC - Continue Scheduled Duoneb nebulizations and prednisone 10 mg daily - H & H - stable after 1 unit prbc ; on pantoprazole and sucralfate for gastritis - Barium swallow 09/06/2020 reported as the patient tolerated thin liquid, thick liquid and nectar consistency barium foodstuffs without aspiration or penetration. But speech therapy assessment is that his cognitive status is improving and already pulled to NG placements and he was noted to demonstrate significant tongue pumping in an effort to propel the bolus posteriorly. Even with half teaspoon of pudding patient demonstrated difficulty breathing and suctioning was attempted however patient refused -Patient is high risk of aspiration-needs PEG tube but is refusing and has history of PEG tube placed 18 months ago which was taken out later -Okay to do soft food with aspiration precautions - Continue clinical monitoring for delirium tremens & respiratory status -Upon discharge patient needs ICS plus LABA twice daily we will follow up in pulmonary clinic for COPD Recommendations conveyed to Hospitalist , RN covering the patient. Attestations Medical Necessity Statement*: Patient was further hospitalization for management of Wernicke's include fatigue, high aspiration risk while safe discharge planning is sought. Time Spent in Patient Care: Greater than 35 minutes (>than 50% of time spent in counselling and/or direct pt care on unit). 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 [employer] Patient Type Established History Comprehensive Exam Comprehensive Medical Decision Making High Complexity Diagnoses AMS (altered mental status) R40.4 Altered mental status type: transient alteration of awareness Alcohol withdrawal seizure with delirium F10.231; R56.9 Alcoholism F10.20 Hypoxia R09.02 COPD (chronic obstructive pulmonary disease) J44.9 COPD type: unspecified COPD Aspiration pneumonia J69.0 Aspiration pneumonia type: due to regurgitated food Laterality: right Lung location: lower lobe of lung At high risk for aspiration Z91.89 Melena K92.1 Seizure R56.9 Sepsis A41.9 Sepsis acute organ dysfunction status: without acute organ dysfunction Sepsis type: sepsis due to unspecified organism Unspecified pleural effusion J90 Time Spent (min) 35
[2020-09-14] MEDS: ipratropium-albuterol 3 mL Neb INHALATION (15:07)
[2020-09-14] MEDS: TRAMadol 50 mg Tablet PO (15:12)
--- NOTE | 2020-09-14 16:10 | CTR_ITS ---
PROCEDURE INFORMATION: Exam: CT Abdomen And Pelvis With Contrast Exam date and time: 09/14/2020 8:55 PM Age: 59 years old Clinical indication: Abdominal pain; Epigastric; Additional info: Epigastric pain TECHNIQUE: Imaging protocol: Computed tomography of the abdomen and pelvis with contrast. Radiation optimization: All CT scans at this facility use at least one of these dose optimization techniques: automated exposure control; mA and/or kV adjustment per patient size (includes targeted exams where dose is matched to clinical indication); or iterative reconstruction. Contrast material: OMNI 300; Contrast volume: 95 ml; Contrast route: INTRAVENOUS (IV); COMPARISON: CT abdomen pelvis w con* [id number] 08/28/2020 9:56 PM RADIATION DOSE METRICS: Total DLP (mGy-cm): 800.5 FINDINGS: Lungs: Lower lobe compressive atelectasis. Noncalcified 6 mm right lower lobe pulmonary nodule on axial series 2, image 3. Moderate severity emphysematous lung changes. Pleural spaces: Small volume bilateral pleural effusions. Liver: Normal. No mass. Gallbladder and bile ducts: Normal. No calcified stones. No ductal dilation. Pancreas: Normal. No ductal dilation. Spleen: Normal. No splenomegaly. Adrenal glands: Normal. No mass. Kidneys and ureters: Normal. No hydronephrosis. Stomach and bowel: Large fecal volume. Mild rectal distension. No inflammatory bowel wall thickening changes. Negative for focal bowel wall mass. Negative for bowel obstruction. Negative bowel perforation. Distal small bowel loops are mildly distended with fluid. There is a short segment small bowel to small bowel intussusception in the anterior left lower quadrant conspicuous on coronal series 602, images 30 1-32. There is no evidence a lead point. No surrounding soft tissue inflammation. Appendix: No evidence of appendicitis. Intraperitoneal space: Unremarkable. No free air. No significant fluid collection. Vasculature: Mesenteric vasculature is patent. Scattered atherosclerosis of abdominal aorta without aneurysm. Lymph nodes: Unremarkable. No enlarged lymph nodes. Urinary bladder: Unremarkable as visualized. Reproductive: Unremarkable as visualized. Bones/joints: Several chronic right posterior rib fractures. Negative for acute fracture. Unremarkable lumbar alignment. No focal suspicious bone lesion. Soft tissues: Unremarkable abdominal wall. CT/CT abdomen pelvis w con* [id number] IMPRESSION: 1. No focal acute pathology in the abdomen or pelvis identified. 2. Incidental finding of a short segment small bowel to small bowel intussusception in the anterior left lower abdomen. Generally discovered as an incidental, self-limiting subclinical finding but clinical correlation is recommended. Radiation Dose CTDIVOL = (mGy): DLP = 800.5 (mGy-cm)
--- NOTE | 2020-09-14 16:11 | P.PN_ITS ---
Subjective Subjective: Interval history: No events overnight. Patient has remained hemodynamically stable. He is currently on 2 L oxygen supplementation maintaining saturation 94%. Complaining of epigastric pain. No diarrhea. Has remained afebrile. Patient is alert oriented on examination. States he wants to go home. We discussed in detail regarding safe discharge planning. Medications: Reviewed: Yes Vitals/I&O/Wt Last Vital Signs Temp 97.6 F 09/14/20 11:48 Pulse 100 09/14/20 15:12 Resp 18 09/14/20 15:10 BP 110/79 09/14/20 11:48 Pulse Ox 94 09/14/20 15:10 09/14/20 09/14/20 09/14/20 06:59 14:59 22:59 Intake Total 120 / 905 720 / 720 Output Total 650 / 1475 Balance -530 / -570 720 / 720 Weight last 48 hrs Weight 55.111 kg Weight 55.066 kg Physical Exam Narrative: EXAM NARRATIVE: General: No acute distress, AO x3, tremors present, CIWA 3 HEENT: PERRLA, pupils bilaterally equal and reactive Chest: Normal vesicular breath sounds, coarse crackles present on the lung pierre, more so on the right lower zone, equal good air entry bilaterally CVS: S1-S2 regular, no murmurs, tachycardia, no gallops, no rubs Abdomen: Soft, generalized abdominal pain, no guarding, no organomegaly, bowel sounds present but sluggish Neuro: No focal deficits, no facial deformity, AO x3, power 5/5 in all limbs Urinary Catheter Management^: Orourke: Cath Placed During This Visit: yes, but has since been removed by the nurse Reason for Continuing Indwelling Catheter: Decision to DC Catheter Urinary Catheter Date of Insertion: 09/04/20 Urinary Catheter Time of Insertion: 10:00 Date Urinary Catheter Removed: 09/12/20 Time Urinary Catheter Discontinued: 21:00 Data : 09/14/20 06:13 09/14/20 06:13 Micro: Microbiology 09/11/20 17:23 Stool Lactoferrin - Final Stool Enteric Pathogens (PCR) - Final Parasite Antigen Panel - Final C.difficile Toxin B Gene (PCR) - Final Occult Blood (FIT) - Final A&P Assessment and plan (1) Wernicke encephalopathy: MRI results appreciated. She has finished 3-day course of IM thiamine. Continue with oral thiamine. Status: Acute (2) Alcohol withdrawal delirium: CIWA improving. AOx3. He is still tremulous. Wean Librium to 10 mg daily. Will stop Librium tomorrow. Continue on Ativan 0.5 mg 8 hourly. Maintain aspiration precautions. Speech therapy follow-up. Case management working on disposition planning. Status: Acute (3) At high risk for aspiration: Oral intake improving. At risk of aspiration. Continue aspiration precautions. ST. Status: Acute (4) Acute respiratory failure with hypoxemia: Secondary to COPD exacerbation with aspiration pneumonia. Improving now. Off antibiotics. Remained stable. Oxygen supplementation keeping saturation around 90%. We will try to wean. DuoNebs every 8 hours. Stop Mucomyst. Last oral steroids today. Dysphagia 1 diet as per aspiration precautions and speech and swallow evaluation. Case discussed with pulmonology on board. Noted decrease in pleural effusion. Status: Acute (5) Hypotension: Resolved. Blood pressures rather variable. Monitor. So far tolerating resumed Flomax. Hypotension so far has resolved, has not required pressors. Monitor. Status: Acute (6) Alcohol withdrawal seizure with delirium: Continue support with benzodiazepines for protracted alcohol withdrawal. Decrease Keppra to 50 mg twice daily. Status: Acute (7) AMS (altered mental status): Secondary to Wernicke's encephalopathy. Has been resolved. Status: Acute Qualifiers: Altered mental status type: transient alteration of awareness Qualified Code(s): R40.4 - Transient alteration of awareness (8) Acute alcohol intoxication: Resolved Status: Acute Qualifiers: Complication of substance-induced condition: uncomplicated Qualified Code(s): F10.920 - Alcohol use, unspecified with intoxication, uncomplicated (9) Gastritis: PPI and Carafate with meals and at bedtime. Status: Acute (10) Anemia: Appears stable posttransfusion Gastritis, duodenitis Status: Acute (11) Hypoxia: Status: Acute (12) COPD (chronic obstructive pulmonary disease): Status: Acute Qualifiers: COPD type: unspecified COPD Qualified Code(s): J44.9 - Chronic obstructive pulmonary disease, unspecified (13) Urinary retention: [place]ourke. Monitor for recurrence of retention with voiding trial. Flomax restarted and has tolerated it so far. Consider repeat voiding trial. Status: Acute (14) Diarrhea: To rule out C. difficile. Status: Acute (15) Aspiration pneumonia: As above. Status: Acute Qualifiers: Aspiration pneumonia type: due to regurgitated food Laterality: right Lung location: lower lobe of lung Qualified Code(s): J69.0 - Pneumonitis due to inhalation of food and vomit (16) Physical deconditioning: Status: Acute Additional A&P Information Smoking addiction: Nicotine patch History of alcohol abuse Epigastric pain: Continue with Carafate and pantoprazole. Check lipase. Check CT abdomen pelvis with contrast. Patient's LFTs are within normal limits. Discharge planning: Patient is evaluated for physical deconditioning. Patient requires continuous physical therapy. Unfortunately safe discharge planning is difficult. Patient does not qualify for physical therapy at SNF because he is Medicaid only. Patient does not have good family support to take care of him as an outpatient if he remains this physically deconditioned. Patient has been declined to swing bed and at LTAC. Case management is involved. Had a long discussion with patient regarding safe discharge planning. We discus sed that if patient does not want placed to be SNF he would need to work better with physical therapy and get stronger. He should at least be able to stand up with assist and walk a few steps. Patient states he understands and will try. Attestations Medical Necessity Statement*: Patient requires further hospitalization for Wernicke's encephalopathy while safe discharge planning is sought because of severe physical deconditioning. Patient is at risk of fall and readmission because of severe deconditioning. Time Spent in Patient Care: Greater than 35 minutes (>than 50% of time spent in counselling and/or direct pt care on unit) . 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[facility] Diagnoses Wernicke encephalopathy E51.2 Alcohol withdrawal delirium F10.231 At high risk for aspiration Z91.89 Acute respiratory failure with hypoxemia J96.01 Hypotension I95.9 Alcohol withdrawal seizure with delirium F10.231; R56.9 AMS (altered mental status) R40.4 Altered mental status type: transient alteration of awareness Acute alcohol intoxication F10.920 Complication of substance-induced condition: uncomplicated Gastritis K29.70 Anemia D64.9 Hypoxia R09.02 COPD (chronic obstructive pulmonary disease) J44.9 COPD type: unspecified COPD Urinary retention R33.9 Diarrhea R19.7 Aspiration pneumonia J69.0 Aspiration pneumonia type: due to regurgitated food Laterality: right Lung location: lower lobe of lung Physical deconditioning R53.81
[2020-09-14] MEDS: nicotine 14 mg Patch 1 PATCH TRANSDERMA (18:51)
[2020-09-14] MEDS: iohexol 300 mg/mL 100 mL Btl IV (20:58)
[2020-09-15] VITALS (14 sets, daily range): BP systolic 79–151; BP diastolic 53–88; PULSE 90–122; RESP 16–20; TEMP 36.7–37.1; O2SAT 78–95
[2020-09-15] MEDS: LORazepam 0.5 mg Tablet PO ×3 (03:15→18:21)
[2020-09-15] MEDS: sucralfate 1 gm/10 mL Oral Liq UDC PO ×4 (06:02→22:14)
[2020-09-15] MEDS: ipratropium-albuterol 3 mL Neb INHALATION ×3 (07:49→23:53)
[2020-09-15] MEDS: chlordiazePOXIDE 10 mg Capsule PO (08:44)
[2020-09-15] MEDS: levETIRAcetam 500 mg Tablet 250 MG PO ×2 (08:44→20:34)
[2020-09-15] MEDS: gabapentin 100 mg Capsule PO ×2 (08:44→18:21)
[2020-09-15] MEDS: thiamine 100 mg Tablet PO (08:44)
[2020-09-15] MEDS: multivitamin therapeutic Tablet 1 TAB PO (08:45)
[2020-09-15] MEDS: pantoprazole DR 40 mg Tablet PO ×2 (08:45→20:35)
[2020-09-15] MEDS: tamsulosin 0.4 mg Capsule PO (08:45)
[2020-09-15] MEDS: folic acid 1 mg Tablet PO (08:45)
[2020-09-15] MEDS: metoprolol tartrate 25 mg Tablet PO ×2 (08:45→20:35)
--- NOTE | 2020-09-15 16:38 | P.PN_ITS ---
Subjective Subjective: Interval history: No acute events overnight. Today morning patient sitting in chair on examination. Complaining of abdominal pain. Denies any nausea, vomiting. Complaining of generalized pain, denies having any hallucinations headache or cold sweats. Worked with physical therapy and OT but was max assist. Medications: Reviewed: Yes Vitals/I&O/Wt Last Vital Signs Temp 98.2 F 09/15/20 15:48 Pulse 106 H 09/15/20 15:48 Resp 16 09/15/20 15:48 BP 79/53 09/15/20 15:48 Pulse Ox 94 09/15/20 15:48 09/15/20 09/15/20 09/15/20 06:59 14:59 22:59 Intake Total 240 / 1080 240 / 240 Output Total 800 / 800 500 / 500 Balance -560 / 280 -260 / -260 Weight last 48 hrs Weight 54.567 kg Weight 55.111 kg Physical Exam Narrative: EXAM NARRATIVE: General: No acute distress, AO x3, tremors present, CIWA 3 HEENT: PERRLA, pupils bilaterally equal and reactive Chest: Normal vesicular breath sounds, coarse crackles present on the lung pierre, more so on the right lower zone, equal good air entry bilaterally CVS: S1-S2 regular, no murmurs, tachycardia, no gallops, no rubs Abdomen: Soft, generalized abdominal pain, no guarding, no organomegaly, bowel s ounds present but sluggish Neuro: No focal deficits, no facial deformity, AO x3, power 5/5 in all limbs Urinary Catheter Management^: Orourke: Cath Placed During This Visit: yes, but has since been removed by the nurse Reason for Continuing Indwelling Catheter: Decision to DC Catheter Urinary Catheter Date of Insertion: 09/04/20 Urinary Catheter Time of Insertion: 10:00 Date Urinary Catheter Removed: 09/12/20 Time Urinary Catheter Discontinued: 21:00 Data : 09/14/20 06:13 09/14/20 06:13 A&P Assessment and plan (1) Wernicke encephalopathy: MRI results appreciated. She has finished 3-day course of IM thiamine. Continue with oral thiamine. Status: Acute (2) Alcohol withdrawal delirium: CIWA improving. AOx3. He is still tremulous. Librium stopped on September 15. Continue on Ativan 0.5 mg 8 hourly. Maintain aspiration precautions. Speech therapy follow-up. Case management working on disposition planning. Status: Acute (3) At high risk for aspiration: Oral intake improving. At risk of aspiration. Continue aspiration precautions. ST. Status: Acute (4) Acute respiratory failure with hypoxemia: Secondary to COPD exacerbation with aspiration pneumonia. Improving now. Off antibiotics. Remained stable. Oxygen supplementation keeping saturation around 90%. We will try to wean. DuoNebs every 8 hours. Stop Mucomyst. Last oral steroids today. Dysphagia 1 diet as per aspiration precautions and speech and swallow evaluation. Case discussed with pulmonology on board. Noted decrease in pleural effusion. Status: Acute (5) Hypotension: Resolved. Blood pressures rather variable. Monitor. So far tolerating resumed Flomax. Hypotension so far has resolved, has not required pressors. Monitor. Status: Acute (6) Alcohol withdrawal seizure with delirium: Continue support with benzodiazepines for protracted alcohol withdrawal. Decrease Keppra to 50 mg twice daily. Status: Acute (7) AMS (altered mental status): Secondary to Wernicke's encephalopathy. Has been resolved. Status: Acute Qualifiers: Altered mental status type: transient alteration of awareness Qualified Code(s): R40.4 - Transient alteration of awareness (8) Acute alcohol intoxication: Resolved Status: Acute Qualifiers: Complication of substance-induced condition: uncomplicated Qualified Code(s): F10.920 - Alcohol use, unspecified with intoxication, uncomplicated (9) Gastritis: PPI and Carafate with meals and at bedtime. Status: Acute (10) Anemia: Appears stable posttransfusion Gastritis, duodenitis Status: Acute (11) Hypoxia: Status: Acute (12) COPD (chronic obstructive pulmonary disease): Status: Acute Qualifiers: COPD type: unspecified COPD Qualified Code(s): J44.9 - Chronic obstructive pulmonary disease, unspecified (13) Urinary retention: [place]ourke. Monitor for recurrence of retention with voiding trial. Flomax restarted and has tolerated it so far. Consider repeat voiding trial. Status: Acute (14) Diarrhea: To rule out C. difficile. Status: Acute (15) Aspiration pneumonia: As above. Status: Acute Qualifiers: Aspiration pneumonia type: due to regurgitated food Laterality: right Lung location: lower lobe of lung Qualified Code(s): J69.0 - Pneumonitis due to inhalation of food and vomit (16) Physical deconditioning: Status: Acute Additional A&P Information Smoking addiction: Nicotine patch History of alcohol abuse Abdominal pain: Continue with Carafate and pantoprazole. Lipase within normal limits. CT abdomen pelvis: Consistent with possible intussusception. Care discussed with Dr. Allen from surgery. He states we will continue to monitor for next few days and patient continues to have abdominal pain to repeat a CT scan. Dr. Allen advises for aggressive bowel regimen and an enema for constipation seen on CT scan. Discharge planning: Patient is evaluated for physical deconditioning. Patient requires continuous physical therapy. Unfortunately safe discharge planning is difficult. Patient does not qualify for physical therapy at SNF because he is Medicaid only. Patient does not have good family support to take care of him as an outpatient if he remains this physically deconditioned. Patient has been declined to swing bed and at LTAC. Case management is involved. Had a long discussion with patient regarding safe discharge planning. We discussed that if patient does not want placed to be SNF he would need to work better with physical therapy and get stronger. He should at least be able to stand up with assist and walk a few steps. Patient states he understands and will try. Attestations Medical Necessity Statement*: Patient requires further hospitalization for management of severe generalized deconditioning in setting of chronic alcohol abuse, Wernicke's encephalopathy, severe risk of fall and aspiration pneumonia while safe discharge planning is sought. Time Spent in Patient Care: Greater than 35 minutes (>than 50% of time spent in counselling and/or direct pt care on unit) . 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[facility] Diagnoses Wernicke encephalopathy E51.2 Alcohol withdrawal delirium F10.231 At high risk for aspiration Z91.89 Acute respiratory failure with hypoxemia J96.01 Hypotension I95.9 Alcohol withdrawal seizure with delirium F10.231; R56.9 AMS (altered mental status) R40.4 Altered mental status type: transient alteration of awareness Acute alcohol intoxication F10.920 Complication of substance-induced condition: uncomplicated Gastritis K29.70 Anemia D64.9 Hypoxia R09.02 COPD (chronic obstructive pulmonary disease) J44.9 COPD type: unspecified COPD Urinary retention R33.9 Diarrhea R19.7 Aspiration pneumonia J69.0 Aspiration pneumonia type: due to regurgitated food Laterality: right Lung location: lower lobe of lung Physical deconditioning R53.81
[2020-09-15] MEDS: TRAMadol 50 mg Tablet PO (18:20)
[2020-09-15] MEDS: magnesium citrate Btl 296 mL PO (18:20)
[2020-09-15] MEDS: nicotine 14 mg Patch 1 PATCH TRANSDERMA (20:35)
[2020-09-16] VITALS (13 sets, daily range): BP systolic 100–148; BP diastolic 32–90; PULSE 87–104; RESP 16–20; TEMP 36.4–37.8; O2SAT 90–100
[2020-09-16] MEDS: TRAMadol 50 mg Tablet PO ×3 (00:26→20:49)
[2020-09-16] MEDS: LORazepam 0.5 mg Tablet PO ×3 (02:59→18:28)
--- NOTE | 2020-09-16 05:22 | PC.NURSE ---
SHIFT SUMMARY Was awake much of the night. Resting with eyes closed after he received scheduled po Ativan. At first of shift was oriented and able to tell me correctly where he was, what day, month and year it was. Later in night was not able to do this. Did always know place but confused to date, year and time. Tells me he has hallucinations and sometimes he sees good things and sometimes he sees bad things that scare me Talks about seeing kids playing. Also says he hears people talking to him. Contines to have tremors but are better than they were. Reports generalized pain. Received po Tramadol X1. Voids per urinal at times and is incont occ as well.
[2020-09-16] MEDS: sucralfate 1 gm/10 mL Oral Liq UDC PO ×4 (07:02→20:49)
[2020-09-16] MEDS: ipratropium-albuterol 3 mL Neb INHALATION ×2 (07:18→23:08)
[2020-09-16] MEDS: pantoprazole DR 40 mg Tablet PO ×2 (09:56→20:49)
[2020-09-16] MEDS: folic acid 1 mg Tablet PO (09:56)
[2020-09-16] MEDS: multivitamin therapeutic Tablet 1 TAB PO (09:56)
[2020-09-16] MEDS: tamsulosin 0.4 mg Capsule PO (09:57)
[2020-09-16] MEDS: metoprolol tartrate 25 mg Tablet PO ×2 (09:57→20:48)
[2020-09-16] MEDS: gabapentin 100 mg Capsule PO ×2 (09:57→18:28)
[2020-09-16] MEDS: levETIRAcetam 500 mg Tablet 250 MG PO ×2 (09:57→20:48)
[2020-09-16] MEDS: thiamine 100 mg Tablet PO (09:57)
--- NOTE | 2020-09-16 11:02 | P.PN_ITS ---
Subjective Subjective: Interval history: No acute events overnight. Today on examination patient is sitting up in chair. Patient up to the chair with help of physical therapy and Occupational Therapy and was max assist. Patient participating poorly in physical therapy. Denies any nausea vomiting, headache. Having occasional hallucinations. Does not have suicidal or homicidal ideation. St ates abdominal pain is little better. Did not have any bowel movement today morning but did have one last night. Refused enema yesterday. Medications: Reviewed: Yes Vitals/I&O/Wt Last Vital Signs Temp 98.1 F 09/16/20 07:37 Pulse 87 09/16/20 07:37 Resp 17 09/16/20 07:37 BP 137/90 09/16/20 07:37 Pulse Ox 96 09/16/20 07:37 09/15/20 09/16/20 09/16/20 22:59 06:59 14:59 Intake Total 120 / 360 360 / 720 120 / 120 Output Total 650 / 1150 300 / 1450 Balance -530 / -790 60 / -730 120 / 120 Weight last 48 hrs Weight 55.066 kg Weight 54.567 kg Physical Exam Narrative: EXAM NARRATIVE: General: No acute distress, AO x3, tremors present, CIWA 3 HEENT: PERRLA, pupils bilaterally equal and reactive Chest: Normal vesicular breath sounds, coarse crackles present on the lung f ields, more so on the right lower zone, equal good air entry bilaterally CVS: S1-S2 regular, no murmurs, tachycardia, no gallops, no rubs Abdomen: Soft, generalized abdominal pain, no guarding, no organomegaly, bowel sounds present but sluggish Neuro: No focal deficits, no facial deformity, AO x3, power 5/5 in all limbs Urinary Catheter Management^: Orourke: Cath Placed During This Visit: yes, but has since been removed by the nurse Reason for Continuing Indwelling Catheter: Decision to DC Catheter Urinary Catheter Date of Insertion: 09/04/20 Urinary Catheter Time of Insertion: 10:00 Date Urinary Catheter Removed: 09/12/20 Time Urinary Catheter Discontinued: 21:00 Data : 09/14/20 06:13 09/14/20 06:13 A&P Assessment and plan (1) Wernicke encephalopathy: MRI results appreciated. She has finished 3-day course of IM thiamine. Continue with oral thiamine. Status: Acute (2) Alcohol withdrawal delirium: CIWA improving. AOx3. He is still tremulous. Librium stopped on September 15. Continue on Ativan 0.5 mg 8 hourly. Maintain aspiration precautions. Speech therapy follow-up. Case management working on disposition planning. Status: Acute (3) At high risk for aspiration: Oral intake improving. At risk of aspiration. Continue aspiration precautions. ST. Status: Acute (4) Acute respiratory failure with hypoxemia: Secondary to COPD exacerbation with aspiration pneumonia. Improving now. Off antibiotics. Remained stable. Oxygen supplementation keeping saturation around 90%. We will try to wean. DuoNebs every 8 hours. Stop Mucomyst. Last oral steroids today. Dysphagia 1 diet as per aspiration precautions and speech and swallow evaluatio n. Case discussed with pulmonology on board. Noted decrease in pleural effusion. Status: Acute (5) Hypotension: Resolved. Blood pressures rather variable. Monitor. So far tolerating resumed Flomax. Hypotension so far has resolved, has not required pressors. Monitor. Status: Acute (6) Alcohol withdrawal seizure with delirium: Continue support with benzodiazepines for protracted alcohol withdrawal. Decrease Keppra to 50 mg twice daily. Status: Acute (7) AMS (altered mental status): Secondary to Wernicke's encephalopathy. Has been resolved. Status: Acute Qualifiers: Altered mental status type: transient alteration of awareness Qualified Code(s): R40.4 - Transient alteration of awareness (8) Acute alcohol intoxication: Resolved Status: Acute Qualifiers: Complication of substance-induced condition: uncomplicated Qualified Code(s): F10.920 - Alcohol use, unspecified with intoxication, uncomplicated (9) Gastritis: PPI and Carafate with meals and at bedtime. Status: Acute (10) Anemia: Appears stable posttransfusion Gastritis, duodenitis Status: Acute (11) Hypoxia: Status: Acute (12) COPD (chronic obstructive pulmonary disease): Status: Acute Qualifiers: COPD type: unspecified COPD Qualified Code(s): J44.9 - Chronic obstructive pulmonary disease, unspecified (13) Urinary retention: Orourke. Monitor for recurrence of retention with voiding trial. Flomax restarted and has tolerated it so far. Consider repeat voiding trial. Status: Acute (14) Diarrhea: To rule out C. difficile. Status: Acute (15) Aspiration pneumonia: As above. Status: Acute Qualifiers: Aspiration pneumonia type: due to regurgitated food Laterality: right Lung location: lower lobe of lung Qualified Code(s): J69.0 - Pneumonitis due to inhalation of food and vomit (16) Physical deconditioning: Status: Acute Additional A&P Information Smoking addiction: Nicotine patch History of alcohol abuse Abdominal pain: Continue with Carafate and pantoprazole. Lipase within normal limits. CT abdomen pelvis done was consistent with possible intussusception. Care discussed with Dr. Allen from surgery. He states we will continue to monitor for next few days and patient continues to have abdominal pain to repeat a CT scan. Dr. Allen advises for aggressive bowel regimen and an enema for constipation seen on CT scan. Patient refused enema yesterday. Will repeat mag citrate today. Discharge planning: Patient is evaluated for physical deconditioning. Patient requires continuous physical therapy. Unfortunately safe discharge planning is difficult. Patient does not qualify for physical therapy at SNF because he is Medicaid only. Patient does not have good family support to take care of him as an outpatient if he remains this physically deconditioned. Patient has been declined to swing bed and at LTAC. Case management is involved. Had a long discussion with patient regarding safe discharge planning. We discussed that if patient does not want placed to be SNF he would need to work better with physical therapy and get stronger. He should at least be able to stand up with assist and walk a few steps. Patient states he understands and will try. Attestations Medical Necessity Statement*: Requires further hospitalization for management of Wernicke's encephalopathy, severe physical deconditioning at a high risk of fall and aspiration risk while safe discharge planning is sought Time Spent in Patient Care: Greater than 35 minutes (>than 50% of time spent in counselling and/or direct pt care on unit) . Coding Level of Care Code Acute Manager Of Engineering for [facility] Fwd Diagnoses Wernicke encephalopathy E51.2 Alcohol withdrawal delirium F10.231 At high risk for aspiration Z91.89 Acute respiratory failure with hypoxemia J96.01 Hypotension I95.9 Alcohol withdrawal seizure with delirium F10.231; R56.9 AMS (altered mental status) R40.4 Altered mental status type: transient alteration of awareness Acute alcohol intoxication F10.920 Complication of substance-induced condition: uncomplicated Gastritis K29.70 Anemia D64.9 Hypoxia R09.02 COPD (chronic obstructive pulmonary disease) J44.9 COPD type: unspecified COPD Urinary retention R33.9 Diarrhea R19.7 Aspiration pneumonia J69.0 Aspiration pneumonia type: due to regurgitated food Laterality: right Lung location: lower lobe of lung Physical deconditioning R53.81
[2020-09-16] MEDS: magnesium citrate Btl 296 mL PO (12:46)
[2020-09-17] VITALS (9 sets, daily range): BP systolic 94–125; BP diastolic 57–85; PULSE 90–129; RESP 16–18; TEMP 36.7–37.7; O2SAT 90–93
[2020-09-17] MEDS: LORazepam 0.5 mg Tablet PO ×3 (03:32→18:53)
[2020-09-17] MEDS: sucralfate 1 gm/10 mL Oral Liq UDC PO ×4 (06:38→20:31)
[2020-09-17] MEDS: ipratropium-albuterol 3 mL Neb INHALATION ×3 (07:47→15:28)
[2020-09-17] MEDS: gabapentin 100 mg Capsule PO ×2 (08:22→17:57)
[2020-09-17] MEDS: tamsulosin 0.4 mg Capsule PO (08:22)
[2020-09-17] MEDS: folic acid 1 mg Tablet PO (08:22)
[2020-09-17] MEDS: metoprolol tartrate 25 mg Tablet PO ×2 (08:22→20:31)
[2020-09-17] MEDS: levETIRAcetam 500 mg Tablet 250 MG PO ×2 (08:22→20:31)
[2020-09-17] MEDS: thiamine 100 mg Tablet PO (08:22)
[2020-09-17] MEDS: pantoprazole DR 40 mg Tablet PO ×2 (08:22→20:31)
[2020-09-17] MEDS: multivitamin therapeutic Tablet 1 TAB PO (08:22)
--- NOTE | 2020-09-17 08:45 | PC.NURSE ---
Was called to patient's bedside by Occupational therapist. Patient had multiple episodes of coughing and seemed to be having trouble choking. Patient was done coughing when I got to room. Patient had been drinking milk previous to choking fit. Was not using a straw. Lungs were auscultated and found to have crackles in left lower lung. Physician notified. Will continue to monitor.
--- NOTE | 2020-09-17 11:35 | PC.NURSE ---
Spoke to patient about what his plan was for discharge. Patient reported that he would have to stay another night, and would consider [facility]. Patient seemed confused at the time, so will reassess at a later time.
[2020-09-17] MEDS: TRAMadol 50 mg Tablet PO (17:57)
--- NOTE | 2020-09-17 20:05 | P.PN_ITS ---
Subjective Subjective: Interval history: States he continues to see things which are not there. Today saw a group of [place] at his table playing cards. States he thinks he knew they were not real, but they were playing real . States he is in some pain in his shoulders, upper back, neck, denies any numbness, overall has been getting gradually stronger, although I cannot walk. Has been feeding himself, otherwise unable to care for himself beyond that. States that his friend, as well as his brother and other family would not be able to adequately care for him, at the same time states would perhaps consider going to skilled nurse facility if he did not have to give up his check. Vitals/I&O/Wt Last Vital Signs Temp 98.6 F 09/17/20 19:54 Pulse 129 H 09/17/20 19:54 Resp 16 09/17/20 19:54 BP 105/66 09/17/20 19:54 Pulse Ox 91 09/17/20 19:54 09/17/20 09/17/20 09/17/20 06:59 14:59 22:59 Intake Total 480 / 1440 480 / 480 360 / 840 Balance 480 / 1438 480 / 480 360 / 840 Weight last 48 hrs Weight 55.021 kg Weight 55.066 kg Physical Exam Const: COMMON NORMALS: no acute distress GENERAL APPEARANCE: cooperative (Cooperative, but needing several prompts for simple commands) and frail appearing ORIENTATION/CONSCIOUSNESS: Yes confused OTHER: Sitting up in chair, slowly working on his lunch. Tremulous. HENMT: COMMON NORMALS: oropharynx normal Neck/C-Spine: COMMON NORMALS: no JVD Resp: COMMON NORMALS: normal respiratory effort AUSCULTATION: diminished lung sounds Cardio: COMMON NORMALS: no JVD, regular rhythm, S1 normal heart sound present, S2 normal heart sound present and No murmurs present (Cardio) RHYTHM: regular rhythm HEART SOUNDS: S1 normal heart sound present and S2 normal heart sound present GI: COMMON NORMALS: Normal to inspection, nondistended, normoactive bowel sounds present, Soft to palpation and non-tender PALPATION: Yes Soft to palpation Extremity: COMMON NORMALS: no joint enlargement and no pedal edema Neuro: COMMON NORMALS: moves all extremities Skin: COMMON NORMALS: no rashes or lesions noted GENERAL SKIN EXAM: no rashes or lesions noted Urinary Catheter Management^: Orourke: Cath Placed During This Visit: yes, but has since been removed by the nurse Reason for Continuing Indwelling Catheter: Decision to DC Catheter Urinary Catheter Date of Insertion: 09/04/20 Urinary Catheter Time of Insertion: 10:00 Date Urinary Catheter Removed: 09/12/20 Time Urinary Catheter Discontinued: 21:00 Data : 09/14/20 06:13 09/14/20 06:13 A&P Assessment and plan (1) Wernicke encephalopathy: Appears to still be having intermittent hallucinations. Generally weak. Tremulous. Very deconditioned. Does appear to have general understanding of his condition, with generalized weakness, inability to care for self at the moment. MRI results appreciated. She has finished 3-day course of IM thiamine. Continue with oral thiamine. Status: Acute (2) Alcohol withdrawal delirium: Still intermittent hallucinations. Appears to have gradually/slowly improving acute on chronic encephalopathy with chronic alcoholic encephalopathy, as well as acute withdrawal delirium. Continue on Ativan 0.5 mg 8 hourly. Maintain aspiration precautions. Speech therapy follow-up. Case management working on disposition planning. Status: Acute (3) At high risk for aspiration: Low-grade fever last night, 100 Fahrenheit. Appears may have choked on some milk. We are asking for additional reassessment by speech therapy. He does appear to be overall functioning better. Feeding himself. As his appetite is coming back, he does appear to possibly kathleen through his meal somewhat. Continue aspiration precautions. Status: Acute (4) Acute respiratory failure with hypoxemia: Low-grade temp, possibly mild aspiration, monitor. Continues on minimal oxygen 2 L nasal cannula. Secondary to COPD exacerbation with aspiration pneumonia. Off antibiotics. Off steroid. Remained stable. DuoNebs every 8 hours. Status: Acute (5) Hypotension: Resolved. Blood pressures variable. Monitor. Status: Acute (6) Alcohol withdrawal seizure with delirium: Continue support with benzodiazepines for protracted alcohol withdrawal. Decrease Keppra to 50 mg twice daily. Status: Acute (7) AMS (altered mental status): Secondary to Wernicke's encephalopathy. Status: Acute Qualifiers: Altered mental status type: transient alteration of awareness Qualified Code(s): R40.4 - Transient alteration of awareness (8) Acute alcohol intoxication: Resolved Status: Acute Qualifiers: Complication of substance-induced condition: uncomplicated Qualified Code(s): F10.920 - Alcohol use, unspecified with intoxication, uncomplicated (9) Gastritis: PPI and Carafate with meals and at bedtime. Status: Acute (10) Anemia: Appears stable posttransfusion Gastritis, duodenitis Status: Acute (11) Hypoxia: Status: Acute (12) COPD (chronic obstructive pulmonary disease): Status: Acute Qualifiers: COPD type: unspecified COPD Qualified Code(s): J44.9 - Chronic obstructive pulmonary disease, unspecified (13) Urinary retention: Orourke has been removed. Continue Flomax. Monitor for retention. Status: Acute (14) Diarrhea: Negative C. difficile Status: Acute (15) Aspiration pneumonia: As above. Status: Acute Qualifiers: Aspiration pneumonia type: due to regurgitated food Laterality: right Lung location: lower lobe of lung Qualified Code(s): J69.0 - Pneumonitis due to inhalation of food and vomit (16) Physical deconditioning: Status: Acute Additional A&P Information Smoking addiction: Nicotine patch History of alcohol abuse Abdominal pain: Continue with Carafate and pantoprazole. Tolerating oral intake. In case recurrence of abdominal pain, repeat CT scan. Continue aggressive bowel regimen. Attestations Medical Necessity Statement*: Continue admission for assessment of management of Warnicke encephalopathy, gradually resolving acute on chronic encephalopathy secondary to alcohol withdrawal, severe deconditioning and generalized weakness, unable to care for self. Coding Level of Care Code Acute Senior Consultant for [facility] Fwd Diagnoses Wernicke encephalopathy E51.2 Alcohol withdrawal delirium F10.231 At high risk for aspiration Z91.89 Acute respiratory failure with hypoxemia J96.01 Hypotension I95.9 Alcohol withdrawal seizure with delirium F10.231; R56.9 AMS (altered mental status) R40.4 Altered mental status type: transient alteration of awareness Acute alcohol intoxication F10.920 Complication of substance-induced condition: uncomplicated Gastritis K29.70 Anemia D64.9 Hypoxia R09.02 COPD (chronic obstructive pulmonary disease) J44.9 COPD type: unspecified COPD Urinary retention R33.9 Diarrhea R19.7 Aspiration pneumonia J69.0 Aspiration pneumonia type: due to regurgitated food Laterality: right Lung location: lower lobe of lung Physical deconditioning R53.81
[2020-09-18] VITALS (10 sets, daily range): BP systolic 92–141; BP diastolic 58–94; PULSE 90–122; RESP 16–18; TEMP 36.4–37.1; O2SAT 90–98
[2020-09-18] MEDS: LORazepam 0.5 mg Tablet PO ×3 (03:14→18:29)
[2020-09-18 05:40] LABS: Basophils # 0.1 10^3/uL (0.0-0.1); Eosinophils # 0.3 10^3/uL (0.0-0.8); Hematocrit 28.8 % (42.0-52.0); Hemoglobin 8.8 g/dL (11.7-16.6); Lymphocytes # 1.6 10^3/uL (0.8-4.8); Lymphocytes % 19.9 %; Mean Corpuscular HGB Conc 30.6 g/dL (30.0-36.0); Mean Corpuscular Hemoglobin 32.2 pg (28.0-34.0); Mean Corpuscular Volume 105.5 fL (80-94); Mean Platelet Volume 9.9 fL (7.4-10.4); Monocytes # 0.9 10^3/uL (0.2-0.9); Monocytes % 10.3 %; Neutrophils # 5.38 10^3/uL (1.8-7.7); Neutrophils % 65.4 %; Nucleated Red Blood Cells % 0 %; Platelet Count 419 10^3/cmm (130-400); Red Blood Count 2.73 10^6/uL (4.1-5.3); Red Cell Distribution Width 17.2 % (12.1-15.1); White Blood Count 8.2 10^3/uL (4.0-10.0)
[2020-09-18 05:59] LABS: Blood Urea Nitrogen 10 mg/dL (6-20); Calcium 8.4 mg/dL (8.5-10.5); Carbon Dioxide 27 mmol/L (22-29); Chloride 102 mmol/L (98-107); Glomerular Filtration Rate 221.7 mL/min (90-130); Glucose 107 mg/dL (65-115); Osmolality Calculated 292 mOsm/kg (285-295); Sodium 141 mmol/L (136-145)
[2020-09-18] MEDS: sucralfate 1 gm/10 mL Oral Liq UDC PO ×4 (06:49→21:13)
[2020-09-18] MEDS: ipratropium-albuterol 3 mL Neb INHALATION ×2 (07:40→15:25)
[2020-09-18] MEDS: thiamine 100 mg Tablet PO (09:34)
[2020-09-18] MEDS: multivitamin therapeutic Tablet 1 TAB PO (09:34)
[2020-09-18] MEDS: tamsulosin 0.4 mg Capsule PO (09:34)
[2020-09-18] MEDS: metoprolol tartrate 25 mg Tablet PO ×2 (09:34→21:14)
[2020-09-18] MEDS: gabapentin 100 mg Capsule PO ×2 (09:35→17:18)
[2020-09-18] MEDS: folic acid 1 mg Tablet PO (09:35)
[2020-09-18] MEDS: pantoprazole DR 40 mg Tablet PO ×2 (09:35→21:13)
[2020-09-18] MEDS: levETIRAcetam 500 mg Tablet 250 MG PO ×2 (09:36→21:14)
--- NOTE | 2020-09-18 21:01 | P.PN_ITS ---
Subjective Subjective: Interval history: He states that he is intent on trying to improve. I have got to get stronger, even if I have to do something on my own . Not sure what you had meant by this as he did not elaborate when asked, however, encouraged him to work with physical therapy given generalized weakness, poor ability to maintain activities of daily living. He does still state intermittently seeing things that should not be there, previously had seen several people sitting in his room. Vitals/I&O/Wt Last Vital Signs Temp 98.8 F 09/18/20 20:00 Pulse 90 09/18/20 20:00 Resp 18 09/18/20 20:00 BP 127/86 09/18/20 20:00 Pulse Ox 91 09/18/20 20:00 09/18/20 09/18/20 09/18/20 06:59 14:59 22:59 Intake Total 200 / 1280 360 / 360 360 / 720 Balance 200 / 1280 360 / 360 360 / 720 Weight last 48 hrs Weight 55.021 kg Physical Exam Const: COMMON NORMALS: no acute distress GENERAL APPEARANCE: cooperative (Cooperative, but needing several prompts for simple commands) and frail appearing ORIENTATION/CONSCIOUSNESS: Yes confused OTHER: Sitting up in bed. Sleeping. Wakes up to voice. Initially somewhat confused, thinking he is in [place]. HENMT: COMMON NORMALS: oropharynx normal Neck/C-Spine: COMMON NORMALS: no JVD Resp: COMMON NORMALS: normal respiratory effort AUSCULTATION: diminished lung sounds Cardio: COMMON NORMALS: no JVD, regular rhythm, S1 normal heart sound present, S2 normal heart sound present and No murmurs present (Cardio) RHYTHM: regular rhythm HEART SOUNDS: S1 normal heart sound present and S2 normal heart sound present GI: COMMON NORMALS: Normal to inspection, nondistended, normoactive bowel sounds present, Soft to palpation and non-tender PALPATION: Yes Soft to palpation Extremity: COMMON NORMALS: no joint enlargement and no pedal edema Neuro: COMMON NORMALS: moves all extremities Skin: COMMON NORMALS: no rashes or lesions noted GENERAL SKIN EXAM: no rashes or lesions noted Urinary Catheter Management^: Orourke: Cath Placed During This Visit: yes, but has since been removed by the nurse Reason for Continuing Indwelling Catheter: Decision to DC Catheter Urinary Catheter Date of Insertion: 09/04/20 Urinary Catheter Time of Insertion: 10:00 Date Urinary Catheter Removed: 09/12/20 Time Urinary Catheter Discontinued: 21:00 Data : 09/18/20 05:30 09/18/20 05:30 A&P Assessment and plan (1) Wernicke encephalopathy: We are additionally scaling back on his Ativan as concern is whether this may be affecting his mental status. Monitor. Appears to still be having intermittent hallucinations. Generally weak. Tremulous. Very deconditioned. Does appear to have general understanding of his condition, with generalized weakness, inability to care for self at the moment. MRI results appreciated. Continue with oral thiamine. Status: Acute (2) Alcohol withdrawal delirium: Still intermittent hallucinations. Appears to have gradually/slowly improving acute on chronic encephalopathy with chronic alcoholic encephalopathy, as well as acute withdrawal delirium. Ativan 0.5 mg daily as needed. Maintain aspiration precautions. Speech therapy follow-up. Case management working on disposition planning. Status: Acute (3) At high risk for aspiration: No recurrence of low-grade fever so far since 09/16. Appears may have choked on some milk at that time. So far otherwise feeding himself. Continue special precautions. Speech therapy follow-up. Status: Acute (4) Acute respiratory failure with hypoxemia: Low-grade temp resolved, possibly mild aspiration, mild pneumonitis, monitor off antibiotic for now. Continues on minimal oxygen nasal cannula. Secondary to COPD exacerbation with aspiration pneumonia. Off antibiotics. Off steroid. Remained stable. DuoNebs every 8 hours. Status: Acute (5) Hypotension: Resolved. Blood pressures variable. Monitor. Status: Acute (6) Alcohol withdrawal seizure with delirium: Weaning of benzodiazepine support. Continue Keppra. Status: Acute (7) AMS (altered mental status): Secondary to Wernicke's encephalopathy. Status: Acute Qualifiers: Altered mental status type: transient alteration of awareness Qualified Code(s): R40.4 - Transient alteration of awareness (8) Acute alcohol intoxication: Resolved Status: Acute Qualifiers: Complication of substance-induced condition: uncomplicated Qualified Code(s): F10.920 - Alcohol use, unspecified with intoxication, uncomplicated (9) Gastritis: PPI and Carafate with meals and at bedtime. Status: Acute (10) Anemia: Appears stable posttransfusion Gastritis, duodenitis Status: Acute (11) Hypoxia: Status: Acute (12) COPD (chronic obstructive pulmonary disease): Status: Acute Qualifiers: COPD type: unspecified COPD Qualified Code(s): J44.9 - Chronic obstructive pulmonary disease, unspecified (13) Urinary retention: Orourke has been removed. Continue Flomax. Monitor for retention. Status: Acute (14) Diarrhea: Negative C. difficile Status: Acute (15) Aspiration pneumonia: As above. Status: Acute Qualifiers: Aspiration pneumonia type: due to regurgitated food Laterality: right Lung location: lower lobe of lung Qualified Code(s): J69.0 - Pneumonitis due to inhalation of food and vomit (16) Physical deconditioning: Status: Acute Additional A&P Information Smoking addiction: Nicotine patch History of alcohol abuse Abdominal pain: Continue with Carafate and pantoprazole. Tolerating oral intake. In case recurrence of abdominal pain, repeat CT scan. Continue aggressive bowel regimen. Attestations Medical Necessity Statement*: Continue admission for assessment management of chronic encephalopathy, weaning of benzodiazepines, continued mobilization, strengthening due to physical and functional decline. Disposition planning and arrangements. Coding Level of Care Code Acute Handkerchief Folder for g Fwd Diagnoses Wernicke encephalopathy E51.2 Alcohol withdrawal delirium F10.231 At high risk for aspiration Z91.89 Acute respiratory failure with hypoxemia J96.01 Hypotension I95.9 Alcohol withdrawal seizure with delirium F10.231; R56.9 AMS (altered mental status) R40.4 Altered mental status type: transient alteration of awareness Acute alcohol intoxication F10.920 Complication of substance-induced condition: uncomplicated Gastritis K29.70 Anemia D64.9 Hypoxia R09.02 COPD (chronic obstructive pulmonary disease) J44.9 COPD type: unspecified COPD Urinary retention R33.9 Diarrhea R19.7 Aspiration pneumonia J69.0 Aspiration pneumonia type: due to regurgitated food Laterality: right Lung location: lower lobe of lung Physical deconditioning R53.81
[2020-09-19] VITALS (14 sets, daily range): BP systolic 114–144; BP diastolic 69–93; PULSE 87–118; RESP 17–20; TEMP 36.6–38.5; O2SAT 84–96
[2020-09-19] MEDS: TRAMadol 50 mg Tablet PO ×2 (00:20→19:46)
[2020-09-19] MEDS: LORazepam 0.5 mg Tablet PO (04:38)
[2020-09-19] MEDS: sucralfate 1 gm/10 mL Oral Liq UDC PO ×3 (06:10→20:27)
[2020-09-19 06:14] LABS: Basophils # 0.1 10^3/uL (0.0-0.1); Basophils % 1.1 %; Eosinophils # 0.2 10^3/uL (0.0-0.8); Eosinophils % 2.6 %; Hematocrit 27.5 % (42.0-52.0); Hemoglobin 8.4 g/dL (11.7-16.6); Lymphocytes # 1.4 10^3/uL (0.8-4.8); Mean Corpuscular HGB Conc 30.5 g/dL (30.0-36.0); Mean Corpuscular Hemoglobin 31.2 pg (28.0-34.0); Mean Corpuscular Volume 102.2 fL (80-94); Mean Platelet Volume 10.2 fL (7.4-10.4); Monocytes # 0.9 10^3/uL (0.2-0.9); Monocytes % 10.1 %; Neutrophils # 5.91 10^3/uL (1.8-7.7); Neutrophils % 69.8 %; Nucleated Red Blood Cells % 0 %; Platelet Count 439 10^3/cmm (130-400); Red Blood Count 2.69 10^6/uL (4.1-5.3); Red Cell Distribution Width 16.9 % (12.1-15.1); White Blood Count 8.5 10^3/uL (4.0-10.0)
[2020-09-19 06:32] LABS: Anion Gap 13.1 (5-19); Blood Urea Nitrogen 6 mg/dL (6-20); Calcium 8.6 mg/dL (8.5-10.5); Carbon Dioxide 30 mmol/L (22-29); Chloride 101 mmol/L (98-107); Glomerular Filtration Rate 221.7 mL/min (90-130); Glucose 83 mg/dL (65-115); Osmolality Calculated 287 mOsm/kg (285-295); Potassium 4.1 mmol/L (3.5-5.1); Sodium 140 mmol/L (136-145)
--- NOTE | 2020-09-19 08:24 | XR_ITS ---
WS: [id number] Portable AP upright chest, 09/19/2020 Clinical Data: fever Comparison: Portable chest, 09/10/2020. Findings: No nodules, masses or effusions are seen. The heart is normal. The pulmonary vascularity is not increased. No pneumonia or pneumothorax is seen. The diaphragms are flattened. The aortic arch a nd descending aorta show tortuosity. There is a dextroscoliosis of the thoracic spine. There are heal ed right fourth through eighth rib fractures. XR/XR chest 1V portable [id number] Impression: Atherosclerosis and hyperinflation.
[2020-09-19] MEDS: ipratropium-albuterol 3 mL Neb INHALATION ×3 (08:55→23:35)
[2020-09-19] MEDS: pantoprazole DR 40 mg Tablet PO ×2 (10:04→20:27)
[2020-09-19] MEDS: thiamine 100 mg Tablet PO (10:04)
[2020-09-19] MEDS: folic acid 1 mg Tablet PO (10:04)
[2020-09-19] MEDS: gabapentin 100 mg Capsule PO ×2 (10:04→18:36)
[2020-09-19] MEDS: tamsulosin 0.4 mg Capsule PO (10:04)
[2020-09-19] MEDS: multivitamin therapeutic Tablet 1 TAB PO (10:05)
[2020-09-19] MEDS: levETIRAcetam 500 mg Tablet 250 MG PO ×2 (10:17→20:27)
[2020-09-19] MEDS: metoprolol tartrate 25 mg Tablet PO ×2 (10:18→20:27)
[2020-09-19 16:01] LABS: Add Urine Microscopic? NO; Charge for UA Resulting for Rev
[2020-09-19 16:38] LABS: Bilirubin Urine Neg (Negative); Blood Urine Neg (Negative); Glucose Urine UA Norm (Normal); Ketones Urine Negative (Negative); Nitrate Urine Negative (Negative); Protein Urine Neg (Negative); Sulfosalicylic Acid Urine Negative (Negative); Urine Appearance Clear (CLEAR); Urine Color Yellow (Yellow); Urobilinogen Urine Norm (Negative); pH Urine 8 (5-7)
[2020-09-19 16:39] LABS: Leukocyte Esterase Urine Negative (Negative)
--- NOTE | 2020-09-19 20:36 | P.PN_ITS ---
Subjective Subjective: Interval history: He is awake, watching TV. Having some pain in his shoulders and a mild headache. Feels like breathing is not the best like it is diminished . Nose he is in [place]. States the year is 22, but agrees when corrected. Vitals/I&O/Wt Last Vital Signs Temp 99.0 F 09/19/20 19:53 Pulse 99 09/19/20 19:53 Resp 17 09/19/20 19:53 BP 131/82 09/19/20 19:53 Pulse Ox 93 09/19/20 19:53 09/19/20 09/19/20 09/19/20 06:59 14:59 22:59 Intake Total 960 / 960 240 / 1200 Output Total 350 / 350 Balance -350 / 430 959 / 959 240 / 1199 Weight last 48 hrs Weight 53.977 kg Physical Exam Const: COMMON NORMALS: no acute distress GENERAL APPEARANCE: cooperative (Cooperative, but needing several prompts for simple commands) and frail appearing ORIENTATION/CONSCIOUSNESS: Yes confused OTHER: Sitting up in bed. HENMT: COMMON NORMALS: oropharynx normal Neck/C-Spine: COMMON NORMALS: no JVD Resp: COMMON NORMALS: normal respiratory effort AUSCULTATION: diminished lung sounds Cardio: COMMON NORMALS: no JVD, regular rhythm, S1 normal heart sound present, S2 normal heart sound present and No murmurs present (Cardio) RHYTHM: regular rhythm HEART SOUNDS: S1 normal heart sound present and S2 normal heart sound present GI: COMMON NORMALS: Normal to inspection, nondistended, normoactive bowel sounds present, Soft to palpation and non-tender PALPATION: Yes Soft to palpation Extremity: COMMON NORMALS: no joint enlargement and no pedal edema Neuro: COMMON NORMALS: moves all extremities Skin: COMMON NORMALS: no rashes or lesions noted GENERAL SKIN EXAM: no rashes or lesions noted Urinary Catheter Management^: Orourke: Cath Placed During This Visit: yes, but has since been removed by the nurse Reason for Continuing Indwelling Catheter: Decision to DC Catheter Urinary Catheter Date of Insertion: 09/04/20 Urinary Catheter Time of Insertion: 10:00 Date Urinary Catheter Removed: 09/12/20 Time Urinary Catheter Discontinued: 21:00 Data : 09/19/20 05:55 09/19/20 05:55 A&P Assessment and plan (1) Wernicke encephalopathy: Not oriented to year, but close, knows he is in [place]. Perhaps slightly better today. Appears to be thinking somewhat about discharge from hospital, asking me that he does not have any close, and that he had had a brand-new pair of pants caught up with him on the way to the hospital. We will try to confirm if this statement is true as this may be making further improvement with regards to cognition, planning, safety awareness. Monitor after scaling back on Ativan. Generally weak. Tremulous. Very deconditioned. MRI results appreciated. Continue with oral thiamine. Status: Acute (2) Fever: Up to one 101.3 at midnight last night. No leukocytosis. Obtain chest x- ray, urinalysis. No obvious pneumonia, but I do suspect microaspiration given history of with dysphagia. UA unremarkable. Denies abdominal pain. Tiny gallstones and sludge previously noted, will check CMP. Continue aspiration precautions. Patient also some noted possible intussusception. He again does not have abdominal pain, however, if fever recurs, consider repeat imaging. Status: Acute (3) Alcohol withdrawal delirium: Intermittent hallucinations, but overall appears to be slowly improving. Ativan 0.5 mg daily as needed. Maintain aspiration precautions. Speech therapy follow-up. Case management working on disposition planning. Status: Acute (4) At high risk for aspiration: No recurrence of low-grade fever so far since 09/16. Appears may have choked on some milk at that time. So far otherwise feeding himself. Continue special precautions. Speech therapy follow-up. Status: Acute (5) Acute respiratory failure with hypoxemia: Continues on minimal oxygen nasal cannula. Secondary to COPD exacerbation with aspiration pneumonia. Off antibiotics. Off steroid. Remained stable. DuoNebs every 8 hours. Status: Acute (6) Hypotension: Resolved. Blood pressures variable. Monitor. Status: Acute (7) Alcohol withdrawal seizure with delirium: Weaning of benzodiazepine support. Continue Keppra. Status: Acute (8) AMS (altered mental status): Secondary to Wernicke's encephalopathy. Status: Acute Qualifiers: Altered mental status type: transient alteration of awareness Qualified Code(s): R40.4 - Transient alteration of awareness (9) Acute alcohol intoxication: Resolved Status: Acute Qualifiers: Complication of substance-induced condition: uncomplicated Qualified Code(s): F10.920 - Alcohol use, unspecified with intoxication, uncomplicated (10) Gastritis: PPI and Carafate with meals and at bedtime. Status: Acute (11) Anemia: Appears stable posttransfusion Gastritis, duodenitis Status: Acute (12) Hypoxia: Status: Acute (13) COPD (chronic obstructive pulmonary disease): Status: Acute Qualifiers: COPD type: unspecified COPD Qualified Code(s): J44.9 - Chronic obstructive pulmonary disease, unspecified (14) Urinary retention: Orourke has been removed. Continue Flomax. Monitor for retention. Status: Acute (15) Diarrhea: Negative C. difficile Status: Acute (16) Aspiration pneumonia: As above. Status: Acute Qualifiers: Aspiration pneumonia type: due to regurgitated food Laterality: right Lung location: lower lobe of lung Qualified Code(s): J69.0 - Pneumonitis due to inhalation of food and vomit (17) Physical deconditioning: Status: Acute Additional A&P Information Smoking addiction: Nicotine patch History of alcohol abuse Abdominal pain: Had resolved. Continue with Carafate and pantoprazole. Tolerating oral intake. In case recurrence of abdominal pain, repeat CT scan. Continue aggressive bowel regimen. Attestations Medical Necessity Statement*: Continue admission for assessment management of delirium, Warnicke encephalopathy, recurrence of fever. Disposition planning and arrangements. Coding Level of Care Code Acute Director Traffic And Planning for [facility] Fwd Diagnoses Wernicke encephalopathy E51.2 Fever R50.9 Alcohol withdrawal delirium F10.231 At high risk for aspiration Z91.89 Acute respiratory failure with hypoxemia J96.01 Hypotension I95.9 Alcohol withdrawal seizure with delirium F10.231; R56.9 AMS (altered mental status) R40.4 Altered mental status type: transient alteration of awareness Acute alcohol intoxication F10.920 Complication of substance-induced condition: uncomplicated Gastritis K29.70 Anemia D64.9 Hypoxia R09.02 COPD (chronic obstructive pulmonary disease) J44.9 COPD type: unspecified COPD Urinary retention R33.9 Diarrhea R19.7 Aspiration pneumonia J69.0 Aspiration pneumonia type: due to regurgitated food Laterality: right Lung location: lower lobe of lung Physical deconditioning R53.81
[2020-09-19 21:05] LABS: C Reactive Protein 33.9 mg/L (0.0-4.9)
[2020-09-20] VITALS (9 sets, daily range): BP systolic 86–149; BP diastolic 57–91; PULSE 91–135; RESP 12–18; TEMP 36.4–37.6; O2SAT 87–99
[2020-09-20 06:00] LABS: Basophils # 0.1 10^3/uL (0.0-0.1); Basophils % 1.1 %; Eosinophils # 0.3 10^3/uL (0.0-0.8); Eosinophils % 4.9 %; Hematocrit 27.9 % (42.0-52.0); Hemoglobin 8.7 g/dL (11.7-16.6); Lymphocytes # 1.5 10^3/uL (0.8-4.8); Lymphocytes % 22.2 %; Mean Corpuscular HGB Conc 31.2 g/dL (30.0-36.0); Mean Corpuscular Hemoglobin 31.6 pg (28.0-34.0); Mean Corpuscular Volume 101.5 fL (80-94); Mean Platelet Volume 9.9 fL (7.4-10.4); Monocytes # 0.8 10^3/uL (0.2-0.9); Monocytes % 11.9 %; Neutrophils # 3.93 10^3/uL (1.8-7.7); Neutrophils % 59.6 %; Nucleated Red Blood Cells % 0 %; Platelet Count 405 10^3/cmm (130-400); Red Blood Count 2.75 10^6/uL (4.1-5.3); Red Cell Distribution Width 16.8 % (12.1-15.1); White Blood Count 6.6 10^3/uL (4.0-10.0)
[2020-09-20] MEDS: sucralfate 1 gm/10 mL Oral Liq UDC PO ×4 (06:13→21:22)
[2020-09-20 06:19] LABS: Anion Gap 12.6 (5-19); Blood Urea Nitrogen 8 mg/dL (6-20); Calcium 8.9 mg/dL (8.5-10.5); Carbon Dioxide 29 mmol/L (22-29); Chloride 102 mmol/L (98-107); Creatinine Clr Calc Pharmacy 150.5758; Glomerular Filtration Rate 221.7 mL/min (90-130); Glucose 91 mg/dL (65-115); Osmolality Calculated 288 mOsm/kg (285-295); Potassium 3.6 mmol/L (3.5-5.1); Sodium 140 mmol/L (136-145)
[2020-09-20] MEDS: ipratropium-albuterol 3 mL Neb INHALATION (07:45)
[2020-09-20] MEDS: metoprolol tartrate 25 mg Tablet PO (08:16)
[2020-09-20] MEDS: tamsulosin 0.4 mg Capsule PO (08:16)
[2020-09-20] MEDS: levETIRAcetam 500 mg Tablet 250 MG PO ×2 (08:16→21:22)
[2020-09-20] MEDS: thiamine 100 mg Tablet PO (08:16)
[2020-09-20] MEDS: multivitamin therapeutic Tablet 1 TAB PO (08:16)
[2020-09-20] MEDS: folic acid 1 mg Tablet PO (08:16)
[2020-09-20] MEDS: gabapentin 100 mg Capsule PO (08:16)
[2020-09-20] MEDS: pantoprazole DR 40 mg Tablet PO ×2 (08:16→21:22)
--- NOTE | 2020-09-20 08:30 | PC.NURSE ---
i reprted low BPs to nurse and low O2 saturation to nurse
[2020-09-20] MEDS: nicotine 14 mg Patch 1 PATCH TRANSDERMA (08:40)
--- NOTE | 2020-09-20 09:40 | ECG_ITS ---
[facility] ED Test Date: 2020-09-20 Pat Name: Vasyl Reis Department: Room: 259 Gender: Male Superintendent Meters: : 1960 Requested By: Jose Harris Order Number: [id number] Agustin MD: Yoko Restrepo M.D. Measurements Intervals [place] Rate: 96 P: 76 [place]: 160 QRS: 78 QRSD: 77 T: 79 QT: 388 QTc: 491 Interpretive Statements SINUS RHYTHM Compared to ECG 09/04/2020 21:08:21 Sinus tachycardia no longer present T-wave abnormality no longer present Electronically Signed On 09-24-2020 23:16:49 CDT by Yoko Restrepo M.D. [id number]
[2020-09-20] MEDS: sodium chloride 0.9% 250 ML IV (10:36)
--- NOTE | 2020-09-20 19:40 | PM.PN ---
Subjective Subjective: Interval history: He is doing little bit better today. This morning blood pressure was low, but this resolved. She is looking forward to his lunch. Reports slight abdominal discomfort with palpation, otherwise has not been bothered. Breathing is a little bit better today. Saw some people sitting in his room this morning which he realized were not there. He is not seeing any currently. Vitals/I&O/Wt Last Vital Signs Temp 97.6 F 09/20/20 15:48 Pulse 99 09/20/20 15:48 Resp 15 09/20/20 15:48 BP 123/82 09/20/20 15:48 Pulse Ox 96 09/20/20 15:48 09/20/20 09/20/20 09/20/20 06:59 14:59 22:59 Intake Total 490 / 490 240 / 730 Output Total 450 / 451 325 / 325 Balance -450 / 749 165 / 165 240 / 405 Weight last 48 hrs Weight 52.248 kg Weight 53.977 kg Physical Exam Const: COMMON NORMALS: no acute distress and alert GENERAL APPEARANCE: cooperative and frail appearing ORIENTATION/CONSCIOUSNESS: Yes awake OTHER: Sitting up in bed. Putting [id number] on his lunch. Conversant. HENMT: COMMON NORMALS: oropharynx normal Neck/C-Spine: COMMON NORMALS: no JVD Resp: COMMON NORMALS: normal respiratory effort and clear to auscultation bilaterally AUSCULTATION: clear to auscultation bilaterally Cardio: COMMON NORMALS: no JVD, regular rhythm, S1 normal heart sound present, S2 normal heart sound present and No murmurs present (Cardio) RHYTHM: regular rhythm HEART SOUNDS: S1 normal heart sound present and S2 normal heart sound present GI: COMMON NORMALS: Normal to inspection, nondistended, normoactive bowel sounds present, Soft to palpation and non-tender PALPATION: Yes Soft to palpation and Yes Tenderness to palpation present (GI) (Mildly tender) Extremity: COMMON NORMALS: no joint enlargement and no pedal edema Neuro: COMMON NORMALS: moves all extremities SENSORIUM/ORIENTATION: Yes alert Skin: COMMON NORMALS: no rashes or lesions noted GENERAL SKIN EXAM: no rashes or lesions noted Urinary Catheter Management^: Orourke: Cath Placed During This Visit: yes, but has since been removed by the nurse Reason for Continuing Indwelling Catheter: Decision to DC Catheter Urinary Catheter Date of Insertion: 09/04/20 Urinary Catheter Time of Insertion: 10:00 Date Urinary Catheter Removed: 09/12/20 Time Urinary Catheter Discontinued: 21:00 Data : 09/20/20 05:51 09/20/20 05:51 A&P Assessment and plan (1) Hypotension: Blood pressure this morning low, down to 86/57. Suspect due to some autonomic instability. Otherwise she did not have new complaints. Afebrile currently. We held his metoprolol, Flomax, gabapentin, although this was after he had already received them. Monitor blood pressures. Responded well to 250 mL bolus of NS. This afternoon doing well, eating lunch. Asymptomatic. Status: Acute (2) Wernicke encephalopathy: Episodes of hallucinations/visions appear to be less frequent, less pronounced. Now appear limited to him seeing some people who are not there occasionally, and realizing the extent of the illusion. He is not oriented to year, but is close, stating 2021. Knows he is in [place]. Appears to be working better with physical therapy. Continue mobilization. Reorient. Supportive care. Generally weak. Very deconditioned. MRI results appreciated. Continue with oral thiamine. Case management working on discharge planning. Perhaps may be able to return to live with his brother. Status: Acute (3) Fever: Fevers so far has resolved. No leukocytosis. Monitor. In case of recurrence given mild tenderness of the abdomen we will reimage due to prior findings of possible intussusception. No obvious pneumonia, but I do suspect had microaspiration given history of with dysphagia. UA unremarkable. Denies abdominal pain. Tiny gallstones and sludge previously noted, will check CMP. Continue aspiration precautions. Status: Acute (4) Alcohol withdrawal delirium: Intermittent hallucinations, but overall appears to be slowly improving. Ativan 0.5 mg daily as needed. Maintain aspiration precautions. Speech therapy follow-up. Status: Acute (5) At high risk for aspiration: Continue aspiration precautions. Speech therapy follow-up. Status: Acute (6) Acute respiratory failure with hypoxemia: Continues on minimal oxygen nasal cannula. Secondary to COPD exacerbation with aspiration pneumonia. Off antibiotics. Off steroid. Remained stable. DuoNebs every 8 hours. Status: Acute (7) Alcohol withdrawal seizure with delirium: Weaning of benzodiazepine support. Continue Keppra. Status: Acute (8) AMS (altered mental status): Secondary to Wernicke's encephalopathy. Status: Acute Qualifiers: Altered mental status type: transient alteration of awareness Qualified Code(s): R40.4 - Transient alteration of awareness (9) Acute alcohol intoxication: Resolved Status: Acute Qualifiers: Complication of substance-induced condition: uncomplicated Qualified Code(s): F10.920 - Alcohol use, unspecified with intoxication, uncomplicated (10) Gastritis: PPI and Carafate with meals and at bedtime. Status: Acute (11) Anemia: Appears stable posttransfusion Gastritis, duodenitis Status: Acute (12) Hypoxia: Status: Acute (13) COPD (chronic obstructive pulmonary disease): Status: Acute Qualifiers: COPD type: unspecified COPD Qualified Code(s): J44.9 - Chronic obstructive pulmonary disease, unspecified (14) Urinary retention: Orourke has been removed. Continue Flomax. Monitor for retention. Status: Acute (15) Diarrhea: Negative C. difficile Status: Acute (16) Aspiration pneumonia: As above. Status: Acute Qualifiers: Aspiration pneumonia type: due to regurgitated food Laterality: right Lung location: lower lobe of lung Qualified Code(s): J69.0 - Pneumonitis due to inhalation of food and vomit (17) Physical deconditioning: Status: Acute Additional A&P Information Smoking addiction: Nicotine patch History of alcohol abuse Abdominal pain: Had resolved. Continue with Carafate and pantoprazole. Tolerating oral intake. In case recurrence of abdominal pain, repeat CT scan. Continue aggressive bowel regimen. Attestations Medical Necessity Statement*: Continue admission for assessment management following episode of hypotension, with autonomic instability, Warnicke encephalopathy, assess management of episodes of fevers, with aspiration, with severe physical deconditioning, disposition arrangements. Coding Level of Care Code Acute Extruder Operator Helper for [facility] Fwd Diagnoses Hypotension I95.9 Wernicke encephalopathy E51.2 Fever R50.9 Alcohol withdrawal delirium F10.231 At high risk for aspiration Z91.89 Acute respiratory failure with hypoxemia J96.01 Alcohol withdrawal seizure with delirium F10.231; R56.9 AMS (altered mental status) R40.4 Altered mental status type: transient alteration of awareness Acute alcohol intoxication F10.920 Complication of substance-induced condition: uncomplicated Gastritis K29.70 Anemia D64.9 Hypoxia R09.02 COPD (chronic obstructive pulmonary disease) J44.9 COPD type: unspecified COPD Urinary retention R33.9 Diarrhea R19.7 Aspiration pneumonia J69.0 Aspiration pneumonia type: due to regurgitated food Laterality: right Lung location: lower lobe of lung Physical deconditioning R53.81
[2020-09-21] VITALS (12 sets, daily range): BP systolic 123–156; BP diastolic 84–89; PULSE 67–113; RESP 15–19; TEMP 36.7–37.4; O2SAT 0–100
[2020-09-21 05:28] LABS: Basophils # 0.1 10^3/uL (0.0-0.1); Basophils % 0.9 %; Eosinophils # 0.3 10^3/uL (0.0-0.8); Eosinophils % 4.6 %; Hematocrit 29.4 % (42.0-52.0); Lymphocytes # 1.4 10^3/uL (0.8-4.8); Lymphocytes % 20.5 %; Mean Corpuscular HGB Conc 30.6 g/dL (30.0-36.0); Mean Corpuscular Hemoglobin 30.7 pg (28.0-34.0); Mean Corpuscular Volume 100.3 fL (80-94); Mean Platelet Volume 10.3 fL (7.4-10.4); Monocytes # 0.9 10^3/uL (0.2-0.9); Monocytes % 12.3 %; Neutrophils # 4.29 10^3/uL (1.8-7.7); Neutrophils % 61.4 %; Nucleated Red Blood Cells % 0 %; Platelet Count 473 10^3/cmm (130-400); Red Blood Count 2.93 10^6/uL (4.1-5.3); Red Cell Distribution Width 16.7 % (12.1-15.1)
[2020-09-21 05:44] LABS: Alanine Aminotransferase 13 U/L (0-41); Albumin Level 3.2 g/dL (3.5-5.2); Alkaline Phosphatase 72 IU/L (40-130); Anion Gap 12.7 (5-19); Aspartate Amino Transferase 19 U/L (0-40); Blood Urea Nitrogen 8 mg/dL (6-20); Calcium 8.7 mg/dL (8.5-10.5); Carbon Dioxide 29 mmol/L (22-29); Chloride 104 mmol/L (98-107); Globulin 3.1 g/dL (1.3-4.6); Glomerular Filtration Rate 221.7 mL/min (90-130); Glucose 92 mg/dL (65-115); Osmolality Calculated 292 mOsm/kg (285-295); Potassium 3.7 mmol/L (3.5-5.1); Sodium 142 mmol/L (136-145); Total Bilirubin 0.3 mg/dL (0.15-1.2); Total Protein 6.3 g/dL (6.6-8.7)
[2020-09-21] MEDS: sucralfate 1 gm/10 mL Oral Liq UDC PO ×4 (06:07→20:56)
[2020-09-21] MEDS: levETIRAcetam 500 mg Tablet 250 MG PO ×2 (08:14→20:56)
[2020-09-21] MEDS: folic acid 1 mg Tablet PO (08:15)
[2020-09-21] MEDS: nicotine 14 mg Patch 1 PATCH TRANSDERMA (08:15)
[2020-09-21] MEDS: pantoprazole DR 40 mg Tablet PO ×2 (08:15→20:56)
[2020-09-21] MEDS: thiamine 100 mg Tablet PO (08:15)
[2020-09-21] MEDS: gabapentin 100 mg Capsule PO ×2 (08:15→17:29)
[2020-09-21] MEDS: multivitamin therapeutic Tablet 1 TAB PO (08:15)
[2020-09-21] MEDS: metoprolol tartrate 25 mg Tablet 12.5 MG PO ×2 (10:09→20:56)
--- NOTE | 2020-09-21 12:59 | PM.PN ---
Subjective Subjective: Interval history: He is a little bit after asked how he is doing, and says actually he is doing better. Says occasionally is bothered by some pain in his shoulders, mild frontal headache, but otherwise currently is feeling well. Says that occasionally was seeing some people in his room who were not there, but not currently inside so far had not seen him this morning. Denies any abdominal pain. Appetite has been good. Vitals/I&O/Wt Last Vital Signs Temp 98.1 F 09/21/20 11:46 Pulse 102 H 09/21/20 11:46 Resp 18 09/21/20 11:46 BP 136/89 09/21/20 11:46 Pulse Ox 100 09/21/20 11:46 09/20/20 09/21/20 09/21/20 22:59 06:59 14:59 Intake Total 240 / 730 120 / 850 Output Total 0 / 325 100 / 425 275 / 275 Balance 240 / 405 20 / 425 -275 / -275 Weight last 48 hrs Weight 53.342 kg Weight 52.248 kg Physical Exam Const: COMMON NORMALS: no acute distress and alert GENERAL APPEARANCE: cooperative and frail appearing ORIENTATION/CONSCIOUSNESS: Yes awake OTHER: Sitting up in bed. Conversant. HENMT: COMMON NORMALS: oropharynx normal Neck/C-Spine: COMMON NORMALS: no JVD Resp: COMMON NORMALS: normal respiratory effort and clear to auscultation bilaterally AUSCULTATION: clear to auscultation bilaterally Cardio: COMMON NORMALS: no JVD, regular rhythm, S1 normal heart sound present, S2 normal heart sound present and No murmurs present (Cardio) RHYTHM: regular rhythm HEART SOUNDS: S1 normal heart sound present and S2 normal heart sound present GI: COMMON NORMALS: Normal to inspection, nondistended, normoactive bowel sounds present, Soft to palpation and non-tender PALPATION: Yes Soft to palpation and Yes Tenderness to palpation present (GI) (Mildly tender) Extremity: COMMON NORMALS: no joint enlargement and no pedal edema Neuro: COMMON NORMALS: moves all extremities SENSORIUM/ORIENTATION: Yes alert Skin: COMMON NORMALS: no rashes or lesions noted GENERAL SKIN EXAM: no rashes or lesions noted Urinary Catheter Management^: Orourke: Cath Placed During This Visit: yes, but has since been removed by the nurse Reason for Continuing Indwelling Catheter: Decision to DC Catheter Urinary Catheter Date of Insertion: 09/04/20 Urinary Catheter Time of Insertion: 10:00 Date Urinary Catheter Removed: 09/12/20 Time Urinary Catheter Discontinued: 21:00 Data : 09/21/20 05:00 09/21/20 05:00 A&P Assessment and plan (1) Hypotension: Hypotension so far appears to have resolved. He is tachycardic today heart rate 1-teens. We are resuming his metoprolol. Monitor blood pressure. If tolerating well, resume Flomax as well. Afebrile currently. Status: Acute (2) Wernicke encephalopathy: Episodes of hallucinations/visions appear to be less frequent, less pronounced. Now appear limited to him seeing some people who are not there occasionally, and realizing the extent of the illusion. He appears to be not making a few steps with PT. Continue mobilization. Reorient. Supportive care. Generally weak. Very deconditioned. MRI results appreciated. Continue with oral thiamine. Case management working on discharge planning. Perhaps may be able to return to live with his brother. Status: Acute (3) Fever: Fevers so far has resolved. Last on 09/19. No leukocytosis. Monitor. No abdominal pain or tenderness. In case of recurrence given mild tenderness of the abdomen we will reimage due to prior findings of possible intussusception. No obvious pneumonia, but I do suspect had microaspiration given history of with dysphagia. UA unremarkable. No abdominal pain. Tiny gallstones and sludge previously noted, will check CMP. Continue aspiration precautions. Status: Acute (4) Alcohol withdrawal delirium: Intermittent hallucinations, but overall appears to be slowly improving. Ativan 0.5 mg daily as needed. Last dose was 09/19. Maintain aspiration precautions. Speech therapy follow-up. Status: Acute (5) At high risk for aspiration: Continue aspiration precautions. Speech therapy follow-up. Status: Acute (6) Acute respiratory failure with hypoxemia: Continues on minimal oxygen nasal cannula. Secondary to COPD exacerbation with aspiration pneumonia. Off antibiotics. Off steroid. Remained stable. DuoNebs every 8 hours. Status: Acute (7) Alcohol withdrawal seizure with delirium: Weaning of benzodiazepine support. Continue Keppra. Status: Acute (8) AMS (altered mental status): Secondary to Wernicke's encephalopathy. Status: Acute Qualifiers: Altered mental status type: transient alteration of awareness Qualified Code(s): R40.4 - Transient alteration of awareness (9) Acute alcohol intoxication: Resolved Status: Acute Qualifiers: Complication of substance-induced condition: uncomplicated Qualified Code(s): F10.920 - Alcohol use, unspecified with intoxication, uncomplicated (10) Gastritis: PPI and Carafate with meals and at bedtime. Status: Acute (11) Anemia: Appears stable posttransfusion Gastritis, duodenitis Status: Acute (12) Hypoxia: Status: Acute (13) COPD (chronic obstructive pulmonary disease): Status: Acute Qualifiers: COPD type: unspecified COPD Qualified Code(s): J44.9 - Chronic obstructive pulmonary disease, unspecified (14) Urinary retention: Orourke has been removed. Continue Flomax. Monitor for retention. Status: Acute (15) Diarrhea: Negative C. difficile Status: Acute (16) Aspiration pneumonia: As above. Status: Acute Qualifiers: Aspiration pneumonia type: due to regurgitated food Laterality: right Lung location: lower lobe of lung Qualified Code(s): J69.0 - Pneumonitis due to inhalation of food and vomit (17) Physical deconditioning: Status: Acute Additional A&P Information Smoking addiction: Nicotine patch History of alcohol abuse Abdominal pain: Had resolved. Continue with Carafate and pantoprazole. Tolerating oral intake. In case recurrence of abdominal pain, repeat CT scan. Continue aggressive bowel regimen. Attestations Medical Necessity Statement*: Monitor blood pressure due to hypotension will restarting medications, continue mobilization, continue disposition arrangements. Coding Level of Care Code Acute Environmental Sampler for [facility] Fwd Diagnoses Hypotension I95.9 Wernicke encephalopathy E51.2 Fever R50.9 Alcohol withdrawal delirium F10.231 At high risk for aspiration Z91.89 Acute respiratory failure with hypoxemia J96.01 Alcohol withdrawal seizure with delirium F10.231; R56.9 AMS (altered mental status) R40.4 Altered mental status type: transient alteration of awareness Acute alcohol intoxication F10.920 Complication of substance-induced condition: uncomplicated Gastritis K29.70 Anemia D64.9 Hypoxia R09.02 COPD (chronic obstructive pulmonary disease) J44.9 COPD type: unspecified COPD Urinary retention R33.9 Diarrhea R19.7 Aspiration pneumonia J69.0 Aspiration pneumonia type: due to regurgitated food Laterality: right Lung location: lower lobe of lung Physical deconditioning R53.81
[2020-09-21] MEDS: ipratropium-albuterol 3 mL Neb INHALATION ×2 (15:21→23:36)
--- NOTE | 2020-09-21 15:30 | XR_ITS ---
WS: [id number] Portable AP upright chest, 09/21/2020 Clinical Data: shoulder, upper chest pain Comparison: Portable chest, 09/19/2020. Findings: No nodules, masses or effusions are seen. The heart is normal. The pulmonary vascularity is not increased. No pneumonia or pneumothorax is seen. The diaphragms are flattened. The aortic arch a nd descending aorta show tortuosity. There are healed bilateral rib fractures. XR/XR chest 1V portable [id number] Impression: Atherosclerosis and hyperinflation.
--- NOTE | 2020-09-21 15:34 | ECG_ITS ---
[facility] ED Test Date: 2020-09-21 Pat Name: Vasyl Reis Department: Room: 259 Gender: Male Curator Of Education: : 1960 Requested By: Jose Harris Order Number: [id number] Agustin MD: Yoko Restrepo M.D. Measurements Intervals [place] Rate: 110 P: 81 [place]: 174 QRS: 74 QRSD: 73 T: 80 QT: 293 QTc: 397 Interpretive Statements SINUS TACHYCARDIA NONSPECIFIC T-WAVE ABNORMALITY ABNORMAL RHYTHM ECG Compared to ECG 09/20/2020 09:56:30 T-wave abnormality now present Sinus rhythm no longer present Electronically Signed On 09-22-2020 23:15:14 CDT by Yoko Restrepo M.D. [id number]
[2020-09-21 16:32] LABS: Troponin T (5th) Once 19 ng/L (0-15)
--- NOTE | 2020-09-21 17:55 | ECG_ITS ---
[facility] ED Test Date: 2020-09-21 Pat Name: Vasyl Reis Department: Room: 259 Gender: Male Bioassayist: : 1960 Requested By: Jose Harris Order Number: [id number] Agustin MD: Yoko Restrepo M.D. Measurements Intervals [place] Rate: 107 P: 82 [place]: 180 QRS: 73 QRSD: 74 T: 78 QT: 358 QTc: 478 Interpretive Statements SINUS TACHYCARDIA Compared to ECG 09/21/2020 16:04:43 T-wave abnormality no longer present Electronically Signed On 09-22-2020 23:13:32 CDT by Yoko Restrepo M.D. [id number]
[2020-09-21 18:57] LABS: Troponin 5 2HR 15.48 ng/L (0-15)
--- NOTE | 2020-09-21 22:00 | ECG_ITS ---
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 Measurements Intervals [place] Rate: 104 P: 73 DE: 182 QRS: 67 QRSD: 68 T: 77 QT: 374 QTc: 492 Interpretive Statements SINUS TACHYCARDIA ABNORMAL RHYTHM ECG Compared to ECG 09/21/2020 18:41:37 No significant changes Electronically Signed On 09-22-2020 23:13:15 CDT by Yoko Restrepo M.D. [id number]
[2020-09-21 22:42] LABS: Troponin 5 6HR 16.71 ng/L (0-15)
[2020-09-22] VITALS (7 sets, daily range): BP systolic 104–161; BP diastolic 66–97; PULSE 73–110; RESP 16–18; TEMP 36.5–37.8; O2SAT 91–99
[2020-09-22] MEDS: sucralfate 1 gm/10 mL Oral Liq UDC PO ×4 (06:19→20:29)
[2020-09-22] MEDS: TRAMadol 50 mg Tablet PO ×2 (07:42→20:29)
[2020-09-22] MEDS: ipratropium-albuterol 3 mL Neb INHALATION ×2 (08:30→16:22)
[2020-09-22] MEDS: levETIRAcetam 500 mg Tablet 250 MG PO ×2 (09:35→20:29)
[2020-09-22] MEDS: pantoprazole DR 40 mg Tablet PO ×2 (09:35→20:29)
[2020-09-22] MEDS: nicotine 14 mg Patch 1 PATCH TRANSDERMA (09:35)
[2020-09-22] MEDS: gabapentin 100 mg Capsule PO ×2 (09:36→17:21)
[2020-09-22] MEDS: multivitamin therapeutic Tablet 1 TAB PO (09:36)
[2020-09-22] MEDS: folic acid 1 mg Tablet PO (09:36)
[2020-09-22] MEDS: thiamine 100 mg Tablet PO (09:36)
[2020-09-22] MEDS: metoprolol tartrate 25 mg Tablet 12.5 MG PO ×2 (09:38→20:29)
--- NOTE | 2020-09-22 09:51 | PC.OT ---
Occupational therapy treatment attempted twice. Patient declined both times, but he did open his eyes and look at therapist when he declined. He agreed to attempt therapy tomorrow if, and these are his words, he is still here in this place.
[2020-09-22 14:32] LABS: Basophils # 0.1 10^3/uL (0.0-0.1); Basophils % 0.9 %; Eosinophils # 0.2 10^3/uL (0.0-0.8); Eosinophils % 1.6 %; Hemoglobin 9.5 g/dL (11.7-16.6); Lymphocytes # 1.5 10^3/uL (0.8-4.8); Lymphocytes % 12.8 %; Mean Corpuscular HGB Conc 30.6 g/dL (30.0-36.0); Mean Corpuscular Hemoglobin 31.4 pg (28.0-34.0); Mean Corpuscular Volume 102.3 fL (80-94); Mean Platelet Volume 9.8 fL (7.4-10.4); Monocytes # 1.2 10^3/uL (0.2-0.9); Monocytes % 10.2 %; Nucleated Red Blood Cells % 0 %; Platelet Count 529 10^3/cmm (130-400); Red Blood Count 3.03 10^6/uL (4.1-5.3); Red Cell Distribution Width 16.7 % (12.1-15.1); White Blood Count 11.8 10^3/uL (4.0-10.0)
[2020-09-22 14:55] LABS: Alanine Aminotransferase 10 U/L (0-41); Albumin Level 3.4 g/dL (3.5-5.2); Alkaline Phosphatase 70 IU/L (40-130); Anion Gap 12.5 (5-19); Aspartate Amino Transferase 16 U/L (0-40); Blood Urea Nitrogen 8 mg/dL (6-20); Calcium 8.6 mg/dL (8.5-10.5); Carbon Dioxide 29 mmol/L (22-29); Chloride 101 mmol/L (98-107); Glomerular Filtration Rate 171.4 mL/min (90-130); Glucose 98 mg/dL (65-115); Osmolality Calculated 286 mOsm/kg (285-295); Potassium 3.5 mmol/L (3.5-5.1); Sodium 139 mmol/L (136-145); Total Bilirubin 0.4 mg/dL (0.15-1.2); Total Protein 6.4 g/dL (6.6-8.7)
--- NOTE | 2020-09-22 21:48 | P.PN_ITS ---
Subjective Subjective: Interval history: ChestStates last night was seeing a bed outside the window. Denies that it was reflection of his bed as the bed outside the window had all kinds of bedrails and bills and whistles not available on the beds in this facility. Having some aches and pains in various places. Nothing specific. I asked him if his brother Tom or nephew Khadar could connect electricity to the camper on Tom's property and if he is able to contribute financially to help Tom pay the bill. Tells me he owns the camper on Tom's property. States would like to avoid Tom's involvement in too many things. States he previously lived in that camper without air conditioning/electricity. Discussed with him that that would not be safe with the summer heat due to risk of . Vitals/I&O/Wt Last Vital Signs Temp 98.5 F 09/22/20 20:00 Pulse 98 09/22/20 20:00 Resp 16 09/22/20 20:00 BP 130/88 09/22/20 20:00 Pulse Ox 99 09/22/20 20:00 09/22/20 09/22/20 09/22/20 06:59 14:59 22:59 Intake Total 150 / 150 Output Total 375 / 650 400 / 400 Balance -375 / -410 -250 / -250 Weight last 48 hrs Weight 52.662 kg Weight 53.342 kg Physical Exam Const: COMMON NORMALS: no acute distress and alert GENERAL APPEARANCE: cooperative and frail appearing ORIENTATION/CONSCIOUSNESS: Yes awake OTHER: Sitting up in bed. Conversant. HENMT: COMMON NORMALS: oropharynx normal Neck/C-Spine: COMMON NORMALS: no JVD Resp: COMMON NORMALS: normal respiratory effort and clear to auscultation bilaterally AUSCULTATION: clear to auscultation bilaterally Cardio: COMMON NORMALS: no JVD, regular rhythm, S1 normal heart sound present, S2 normal heart sound present and No murmurs present (Cardio) RHYTHM: regular rhythm HEART SOUNDS: S1 normal heart sound present and S2 normal heart sound present GI: COMMON NORMALS: Normal to inspection, nondistended, normoactive bowel sounds present, Soft to palpation and non-tender PALPATION: Yes Soft to palpation and Yes Tenderness to palpation present (GI) (Mildly tender) Extremity: COMMON NORMALS: no joint enlargement and no pedal edema Neuro: COMMON NORMALS: moves all extremities SENSORIUM/ORIENTATION: Yes alert Skin: COMMON NORMALS: no rashes or lesions noted GENERAL SKIN EXAM: no rashes or lesions noted Urinary Catheter Management^: Orourke: Cath Placed During This Visit: yes, but has since been removed by the nurse Reason for Continuing Indwelling Catheter: Decision to DC Catheter Urinary Catheter Date of Insertion: 09/04/20 Urinary Catheter Time of Insertion: 10:00 Date Urinary Catheter Removed: 09/12/20 Time Urinary Catheter Discontinued: 21:00 Data : 09/22/20 14:17 09/22/20 14:17 A&P Assessment and plan (1) Hypotension: Hypotension so far resolved, tolerating metoprolol. We will go ahead and resume Flomax. Monitor for any urinary retention. Hypotension so far appears to have resolved. He is tachycardic today heart rate 1-teens. We are resuming his metoprolol. Monitor blood pressure. If tolerating well, resume Flomax as well. Afebrile currently. Status: Acute (2) Wernicke encephalopathy: Episodes of hallucinations/visions appear to be less frequent, less pronounced. Saw a bed outside his window last night. He appears to be not making a few steps with walker. Continue mobilization. Reorient. Supportive care. Generally weak. Very deconditioned. MRI results appreciated. Continue with oral thiamine. Case management working on discharge planning. Perhaps may be able to return to live with his brother. Status: Acute (3) Shoulder pain, bilateral: Bilateral shoulder pain, upper chest, neck, in case of recurrence of severe pain, consider assessment by CT angiogram. Chest x-ray did not remarkable apart from chronic changes. Troponin with moderate elevation 19-15.48-16.71, without acute peak to suggest acute NV. Sinus rhythm on EKG. CRP abnormal at 33.9. In case no additional signs of infection, no severe pain/no major vascular abnormalities, consider trial of low-dose steroid for possible PMR due to persi stent/recurrent symptoms. Perhaps may explain low-grade fevers as well. Status: Acute (4) Fever: Low-grade temp this morning 100 Fahrenheit. Again either possible microaspiration, or consider PMR as above. Does have some rise of leukocytosis to 11.8 today. Otherwise no new complaints. No suggestion of pulmonary or urinary infection recent studies. No new rashes or integumentary complaints. No focal joint swelling, erythema. No GI problems, although previously possibility of intussusception on abdominal i maging. Has not had further abdominal pain or discomfort. Tolerating diet without any problems. 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 Currently off antibiotics. Continue to monitor for any changes in symptoms. Consider low-dose steroid course for possible PMR. In case of high-grade fever, consider imaging with abdominal CT. Tiny gallstones and sludge previously noted, unremarkable CMP. No right upper quadrant pain. Doubt these are of significance. Continue aspiration precautions. Status: Acute (5) Alcohol withdrawal delirium: Intermittent hallucinations, but overall appears to be slowly improving. Ativan 0.5 mg daily as needed. Last dose was 09/19. Maintain aspiration precautions. Speech therapy follow-up. Status: Acute (6) At high risk for aspiration: Continue aspiration precautions. Speech therapy follow-up. Status: Acute (7) Acute respiratory failure with hypoxemia: Continues on minimal oxygen nasal cannula. Secondary to COPD exacerbation with aspiration pneumonia. Off antibiotics. Off steroid. Remained stable. DuoNebs every 8 hours. Status: Acute (8) Alcohol withdrawal seizure with delirium: Weaning of benzodiazepine support. Continue Keppra. Status: Acute (9) AMS (altered mental status): Secondary to Wernicke's encephalopathy. Status: Acute Qualifiers: Altered mental status type: transient alteration of awareness Qualified Code(s): R40.4 - Transient alteration of awareness (10) Acute alcohol intoxication: Resolved Status: Acute Qualifiers: Complication of substance-induced condition: uncomplicated Qualified Code(s): F10.920 - Alcohol use, unspecified with intoxication, uncomplicated (11) Gastritis: PPI and Carafate with meals and at bedtime. Status: Acute (12) Anemia: Appears stable posttransfusion Gastritis, duodenitis Status: Acute (13) Hypoxia: Status: Acute (14) COPD (chronic obstructive pulmonary disease): Status: Acute Qualifiers: COPD type: unspecified COPD Qualified Code(s): J44.9 - Chronic obstructive pulmonary disease, unspecified (15) Urinary retention: Orourke has been removed. Continue Flomax. Monitor for retention. Status: Acute (16) Diarrhea: Negative C. difficile Status: Acute (17) Aspiration pneumonia: As above. Status: Acute Qualifiers: Aspiration pneumonia type: due to regurgitated food Laterality: right Lung location: lower lobe of lung Qualified Code(s): J69.0 - Pneumonitis due to inhalation of food and vomit (18) Physical deconditioning: Status: Acute Additional A&P Information Smoking addiction: Nicotine patch History of alcohol abuse Abdominal pain: Had resolved. Continue with Carafate and pantoprazole. Tolerating oral intake. In case recurrence of abdominal pain, repeat CT scan. Continue aggressive bowel regimen. Attestations Medical Necessity Statement*: Continue assessment of management of low-grade fever, resumption of medications after episode of hypotension with monitoring blood pressure, mobilization, rate mentation, supportive care after severe alcohol withdrawal, with Warnicke encephalopathy, disposition planning and arrangements. Coding Level of Care Code Acute Granulating Blender for [facility] Fwd Diagnoses Hypotension I95.9 Wernicke encephalopathy E51.2 Shoulder pain, bilateral M25.511; M25.512 Fever R50.9 Alcohol withdrawal delirium F10.231 At high risk for aspiration Z91.89 Acute respiratory failure with hypoxemia J96.01 Alcohol withdrawal seizure with delirium F10.231; R56.9 AMS (altered mental status) R40.4 Altered mental status type: transient alteration of awareness Acute alcohol intoxication F10.920 Complication of substance-induced condition: uncomplicated Gastritis K29.70 Anemia D64.9 Hypoxia R09.02 COPD (chronic obstructive pulmonary disease) J44.9 COPD type: unspecified COPD Urinary retention R33.9 Diarrhea R19.7 Aspiration pneumonia J69.0 Aspiration pneumonia type: due to regurgitated food Laterality: right Lung location: lower lobe of lung Physical deconditioning R53.81
[2020-09-23] VITALS (10 sets, daily range): BP systolic 123–145; BP diastolic 75–95; PULSE 78–118; RESP 12–18; TEMP 36.6–37.6; O2SAT 93–100
[2020-09-23 05:44] LABS: Basophils # 0.1 10^3/uL (0.0-0.1); Basophils % 0.8 %; Eosinophils # 0.3 10^3/uL (0.0-0.8); Eosinophils % 3.3 %; Hematocrit 26.7 % (42.0-52.0); Hemoglobin 8.4 g/dL (11.7-16.6); Lymphocytes # 1.7 10^3/uL (0.8-4.8); Lymphocytes % 22.7 %; Mean Corpuscular HGB Conc 31.5 g/dL (30.0-36.0); Mean Corpuscular Hemoglobin 31.3 pg (28.0-34.0); Mean Corpuscular Volume 99.6 fL (80-94); Mean Platelet Volume 9.6 fL (7.4-10.4); Monocytes # 0.9 10^3/uL (0.2-0.9); Neutrophils # 4.55 10^3/uL (1.8-7.7); Neutrophils % 60.9 %; Nucleated Red Blood Cells % 0 %; Platelet Count 466 10^3/cmm (130-400); Red Blood Count 2.68 10^6/uL (4.1-5.3); Red Cell Distribution Width 16.6 % (12.1-15.1); White Blood Count 7.5 10^3/uL (4.0-10.0)
[2020-09-23 06:07] LABS: Alanine Aminotransferase 9 U/L (0-41); Albumin Level 3.2 g/dL (3.5-5.2); Alkaline Phosphatase 66 IU/L (40-130); Anion Gap 12.1 (5-19); Aspartate Amino Transferase 17 U/L (0-40); Blood Urea Nitrogen 8 mg/dL (6-20); Calcium 8.7 mg/dL (8.5-10.5); Carbon Dioxide 27 mmol/L (22-29); Chloride 101 mmol/L (98-107); Creatinine Clr Calc Pharmacy 152.4232; Globulin 2.7 g/dL (1.3-4.6); Glomerular Filtration Rate 221.7 mL/min (90-130); Glucose 87 mg/dL (65-115); Osmolality Calculated 282 mOsm/kg (285-295); Potassium 3.1 mmol/L (3.5-5.1); Sodium 137 mmol/L (136-145); Total Bilirubin 0.3 mg/dL (0.15-1.2); Total Protein 5.9 g/dL (6.6-8.7)
[2020-09-23] MEDS: ipratropium-albuterol 3 mL Neb INHALATION ×2 (07:31→15:53)
[2020-09-23] MEDS: sucralfate 1 gm/10 mL Oral Liq UDC PO ×4 (07:39→20:59)
[2020-09-23] MEDS: pantoprazole DR 40 mg Tablet PO ×2 (08:13→20:59)
[2020-09-23] MEDS: gabapentin 100 mg Capsule PO ×2 (08:13→17:04)
[2020-09-23] MEDS: levETIRAcetam 500 mg Tablet 250 MG PO ×2 (08:13→20:59)
[2020-09-23] MEDS: nicotine 14 mg Patch 1 PATCH TRANSDERMA (08:13)
[2020-09-23] MEDS: tamsulosin 0.4 mg Capsule PO (08:13)
[2020-09-23] MEDS: folic acid 1 mg Tablet PO (08:13)
[2020-09-23] MEDS: thiamine 100 mg Tablet PO (08:13)
[2020-09-23] MEDS: metoprolol tartrate 25 mg Tablet 12.5 MG PO ×2 (08:13→20:59)
[2020-09-23] MEDS: multivitamin therapeutic Tablet 1 TAB PO (08:13)
--- NOTE | 2020-09-23 08:18 | PC.NURSE ---
Sitting up on side of bed eating breakfast, denies pain, oriented to person, place and month. call light in reach, side rails up X2.
[2020-09-23] MEDS: potassium chloride ER 20 mEq Tablet 40 MEQ PO (10:06)
--- NOTE | 2020-09-23 11:21 | XRR_ITS ---
PROCEDURE INFORMATION: Exam: XR Spine; Lumbar Exam date and time: 09/23/2020 11:21 AM Age: 59 years old Clinical indication: Patient status: Conscious; Pain: Low back pain TECHNIQUE: Imaging protocol: XR of the spine. Exam focused on the lumbar spine. Views: 1 view. 1 view. COMPARISON: No relevant prior studies available. FINDINGS: Bones/joints: There is a transitional lumbosacral vertebra. There are degenerative changes throughout the visualized spine including marginal osteophyte formations, endplate degenerative changes, and facet arthropathy. Multilevel disc space narrowing. 8 degree lumbar levoscoliosis. Soft tissues: Normal. XR/XR lumbar spine 1V [id number] IMPRESSION: 1. There is an 8 degree lumbar levoscoliosis. 2. There are degenerative changes in the lumbar spine as described above.
--- NOTE | 2020-09-23 11:21 | XRR_ITS ---
PROCEDURE INFORMATION: Exam: XR Right Shoulder Exam date and time: 09/23/2020 11:21 AM Age: 59 years old Clinical indication: Pain; Shoulder; Right; Additional info: Shoulder pain TECHNIQUE: Imaging protocol: XR Right shoulder. Views: 1 view. COMPARISON: CR (CHEST, ) 09/12/2020 10:00 PM FINDINGS: Bones/joints: There are moderate degenerative changes across the acromioclavicular joint. There are old right rib fracture sites. Soft tissues: Normal. XR/XR shoulder RT 1V [id number] IMPRESSION: There are moderate degenerative changes across the acromioclavicular joint.
--- NOTE | 2020-09-23 11:21 | XRR_ITS ---
PROCEDURE INFORMATION: Exam: XR Cervical Spine Exam date and time: 09/23/2020 11:21 AM Age: 59 years old Clinical indication: Neck pain TECHNIQUE: Imaging protocol: XR of the cervical spine. Views: 2 or 3 views. COMPARISON: CT Cervical Spine wo* [id number] 10/12/2015 7:48 PM FINDINGS: Bones/joints: There are degenerative changes throughout the visualized spine including marginal osteophyte formations, endplate degenerative changes, and facet arthropathy. Multilevel disc space narrowing. Straightening of the usual cervical lordosis. Soft tissues: There are benign-appearing soft tissue calcifications. Vasculature: There is calcified plaque in the carotid bulbs. XR/XR cervical spine 3V* [id number] IMPRESSION: 1. There are degenerative changes as described above. No evidence for acute fracture. 2. Straightening of the usual cervical lordosis. This may be positional in nature however can be seen with muscle spasm as well.
--- NOTE | 2020-09-23 11:21 | XRR_ITS ---
PROCEDURE INFORMATION: Exam: XR Left Shoulder Exam date and time: 09/23/2020 11:21 AM Age: 59 years old Clinical indication: Pain; Shoulder; Left; Additional info: Shoulder pain TECHNIQUE: Imaging protocol: XR Left shoulder. Views: 2 or more views. COMPARISON: CR (CHEST, ) 09/12/2020 10:00 PM FINDINGS: Bones/joints: There are moderate degenerative changes across the acromioclavicular joint. There are old left rib fracture sites. Soft tissues: Normal. XR/XR shoulder LT 1V [id number] IMPRESSION: There are moderate degenerative changes across the acromioclavicular joint.
[2020-09-23] MEDS: bisacodyl 5 mg Tablet 10 MG PO (11:34)
[2020-09-23] MEDS: TRAMadol 50 mg Tablet PO (11:34)
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
[2020-09-23] MEDS: LORazepam 0.5 mg Tablet PO (22:06)
[2020-09-24] VITALS (8 sets, daily range): BP systolic 126–155; BP diastolic 85–98; PULSE 92–115; RESP 12–20; TEMP 36.9–37.6; O2SAT 94–98
[2020-09-24 05:25] LABS: Basophils # 0.1 10^3/uL (0.0-0.1); Basophils % 0.9 %; Eosinophils # 0.3 10^3/uL (0.0-0.8); Eosinophils % 3.9 %; Hematocrit 26.9 % (42.0-52.0); Hemoglobin 8.2 g/dL (11.7-16.6); Lymphocytes # 1.4 10^3/uL (0.8-4.8); Lymphocytes % 19.4 %; Mean Corpuscular HGB Conc 30.5 g/dL (30.0-36.0); Mean Corpuscular Hemoglobin 30.6 pg (28.0-34.0); Mean Corpuscular Volume 100.4 fL (80-94); Mean Platelet Volume 10.1 fL (7.4-10.4); Monocytes # 0.8 10^3/uL (0.2-0.9); Monocytes % 12.1 %; Neutrophils # 4.43 10^3/uL (1.8-7.7); Neutrophils % 63.4 %; Nucleated Red Blood Cells % 0 %; Platelet Count 508 10^3/cmm (130-400); Red Blood Count 2.68 10^6/uL (4.1-5.3); Red Cell Distribution Width 16.8 % (12.1-15.1)
[2020-09-24 05:47] LABS: Alanine Aminotransferase 10 U/L (0-41); Albumin Level 3.2 g/dL (3.5-5.2); Alkaline Phosphatase 64 IU/L (40-130); Anion Gap 13.5 (5-19); Aspartate Amino Transferase 17 U/L (0-40); Blood Urea Nitrogen 8 mg/dL (6-20); Calcium 8.7 mg/dL (8.5-10.5); Carbon Dioxide 27 mmol/L (22-29); Chloride 103 mmol/L (98-107); Globulin 2.8 g/dL (1.3-4.6); Glomerular Filtration Rate 221.7 mL/min (90-130); Glucose 89 mg/dL (65-115); Magnesium 1.3 mg/dL (1.7-2.3); Osmolality Calculated 288 mOsm/kg (285-295); Potassium 3.5 mmol/L (3.5-5.1); Sodium 140 mmol/L (136-145); Total Bilirubin 0.3 mg/dL (0.15-1.2)
[2020-09-24] MEDS: sucralfate 1 gm/10 mL Oral Liq UDC PO ×4 (06:22→20:41)
[2020-09-24] MEDS: ipratropium-albuterol 3 mL Neb INHALATION (07:54)
[2020-09-24] MEDS: thiamine 100 mg Tablet PO (10:21)
[2020-09-24] MEDS: nicotine 14 mg Patch 1 PATCH TRANSDERMA (10:21)
[2020-09-24] MEDS: tamsulosin 0.4 mg Capsule PO (10:21)
[2020-09-24] MEDS: gabapentin 100 mg Capsule PO ×2 (10:21→17:34)
[2020-09-24] MEDS: multivitamin therapeutic Tablet 1 TAB PO (10:21)
[2020-09-24] MEDS: folic acid 1 mg Tablet PO (10:21)
[2020-09-24] MEDS: metoprolol tartrate 25 mg Tablet 12.5 MG PO ×2 (10:23→20:42)
[2020-09-24] MEDS: levETIRAcetam 500 mg Tablet 250 MG PO ×2 (10:23→20:42)
[2020-09-24] MEDS: pantoprazole DR 40 mg Tablet PO ×2 (10:24→20:42)
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
[2020-09-25] VITALS (8 sets, daily range): BP systolic 118–155; BP diastolic 78–97; PULSE 82–97; RESP 14–17; TEMP 36.9–37.3; O2SAT 90–100
[2020-09-25 06:03] LABS: Basophils # 0.1 10^3/uL (0.0-0.1); Basophils % 0.8 %; Eosinophils # 0.3 10^3/uL (0.0-0.8); Eosinophils % 4.9 %; Hemoglobin 8.5 g/dL (11.7-16.6); Lymphocytes # 1.6 10^3/uL (0.8-4.8); Mean Corpuscular HGB Conc 30.4 g/dL (30.0-36.0); Mean Corpuscular Hemoglobin 30.2 pg (28.0-34.0); Mean Corpuscular Volume 99.6 fL (80-94); Mean Platelet Volume 10.1 fL (7.4-10.4); Monocytes # 0.9 10^3/uL (0.2-0.9); Monocytes % 14.8 %; Neutrophils # 3.45 10^3/uL (1.8-7.7); Nucleated Red Blood Cells % 0 %; Platelet Count 540 10^3/cmm (130-400); Red Blood Count 2.81 10^6/uL (4.1-5.3); Red Cell Distribution Width 16.3 % (12.1-15.1); White Blood Count 6.4 10^3/uL (4.0-10.0)
[2020-09-25 06:26] LABS: Alanine Aminotransferase 9 U/L (0-41); Albumin Level 3.4 g/dL (3.5-5.2); Alkaline Phosphatase 67 IU/L (40-130); Anion Gap 12.5 (5-19); Aspartate Amino Transferase 16 U/L (0-40); Blood Urea Nitrogen 7 mg/dL (6-20); Carbon Dioxide 28 mmol/L (22-29); Chloride 104 mmol/L (98-107); Creatinine Clr Calc Pharmacy 150.3309; Globulin 2.9 g/dL (1.3-4.6); Glomerular Filtration Rate 221.7 mL/min (90-130); Glucose 94 mg/dL (65-115); Magnesium 1.4 mg/dL (1.7-2.3); Osmolality Calculated 290 mOsm/kg (285-295); Phosphorus 4.3 mg/dL (2.5-4.5); Potassium 3.5 mmol/L (3.5-5.1); Sodium 141 mmol/L (136-145); Total Bilirubin 0.3 mg/dL (0.15-1.2); Total Protein 6.3 g/dL (6.6-8.7)
[2020-09-25] MEDS: sucralfate 1 gm/10 mL Oral Liq UDC PO ×2 (06:28→11:32)
[2020-09-25] MEDS: ipratropium-albuterol 3 mL Neb INHALATION (07:46)
[2020-09-25] MEDS: gabapentin 100 mg Capsule PO (09:08)
[2020-09-25] MEDS: levETIRAcetam 500 mg Tablet 250 MG PO (09:08)
[2020-09-25] MEDS: multivitamin therapeutic Tablet 1 TAB PO (09:08)
[2020-09-25] MEDS: thiamine 100 mg Tablet PO (09:08)
[2020-09-25] MEDS: tamsulosin 0.4 mg Capsule PO (09:08)
[2020-09-25] MEDS: pantoprazole DR 40 mg Tablet PO (09:08)
[2020-09-25] MEDS: folic acid 1 mg Tablet PO (09:08)
[2020-09-25] MEDS: metoprolol tartrate 25 mg Tablet 12.5 MG PO (09:09)
[2020-09-25] MEDS: nicotine 14 mg Patch 1 PATCH TRANSDERMA (09:11)
--- NOTE | 2020-09-25 11:43 | PM.DCS ---
Discharge Providers Date of Admission: 08/28/20 13:40 Date of Discharge: September 25, 2020 Attending Provider at Admission: Aramis Canas MD Attending Provider at Discharge: Eze Croft MD Diagnoses at Discharge Discharge Diagnosis (1) Hypotension: Status: Acute (2) Wernicke encephalopathy: Status: Acute (3) Shoulder pain, bilateral: Status: Acute (4) Fever: Status: Acute (5) Alcohol withdrawal delirium: Status: Acute (6) At high risk for aspiration: Status: Acute (7) Acute respiratory failure with hypoxemia: Status: Acute (8) Alcohol withdrawal seizure with delirium: Status: Acute (9) AMS (altered mental status): Status: Acute Qualifiers: Altered mental status type: transient alteration of awareness Qualified Code(s): R40.4 - Transient alteration of awareness (10) Acute alcohol intoxication: Status: Acute Qualifiers: Complication of substance-induced condition: uncomplicated Qualified Code(s): F10.920 - Alcohol use, unspecified with intoxication, uncomplicated (11) Gastritis: Status: Acute (12) Anemia: Status: Acute (13) Hypoxia: Status: Acute (14) COPD (chronic obstructive pulmonary disease): Status: Acute Qualifiers: COPD type: unspecified COPD Qualified Code(s): J44.9 - Chronic obstructive pulmonary disease, unspecified (15) Urinary retention: Status: Acute (16) Diarrhea: Status: Acute (17) Aspiration pneumonia: Status: Acute Qualifiers: Aspiration pneumonia type: due to regurgitated food Laterality: right Lung location: lower lobe of lung Qualified Code(s): J69.0 - Pneumonitis due to inhalation of food and vomit (18) Physical deconditioning: Status: Acute Reason for Visit Reason for Visit: HURTING ALL OVER/ ETOH/ [facility] Hospital Course Hospital Course This is a 59-year-old male with a past medical history of alcoholism, COPD chronic pain, who presents [facility] due to being found in his home by his friend confused, and covered in feces Patient was admitted to [facility] for altered mental status, secondary to alcohol intoxication, received banana bag, folic acid, thiamine, CIWA protocol, monitored for alcohol withdrawal, received antibiotics for aspiration pneumonia, found to be hypoxic requiring 2 L secondary to aspiration and COPD. Patient was managed to alcohol withdrawal, through CIWA protocol, eventually clinically improved, moved to general medical floors discharged to his friend's home on folic acid, thiamine, instructions to abstain from alcohol consumption. Patient also had evidence of Wernicke's encephalopathy and Korsakoff syndrome during his hospital admission, at baseline he is alert oriented x3, however continues to have episodes of confabulation and intermittent episodes of confusion. He throughout his hospitalization denied any suicidal ideation, no homicidal ideation, no attempts, denied feeling down, depresse,d or sad, denied any visual or auditory or tactile or command hallucinations. Discharged home with folic acid, thiamine, instructions to abstain from alcohol consumption For his seizures, he was discharged on Keppra Patient developed acute hypoxic respiratory failure secondary to alcohol delirium, sepsis secondary to aspiration pneumonia, COPD, was managed in the ICU, received broad-spectrum antibiotic therapy, pulmonary was consulted, clinically improved, remained on 2 L, had some degree of persistent low-grade fevers, likely secondary to recurrent aspiration events, no complaints of shortness of breath, no episodes of respiratory distress, lungs clear to auscultation bilaterally discharged on Levaquin for 5 remaining days, and oxygen therapy for COPD For his swallowing, he has a high risk of aspiration, barium swallow showed that he tolerated thin liquids, thick liquids, nectar thickened consistencies without aspiration For his anemia, hemoglobin nectar 9.8, with reports of melena, EGD performed showed gastritis, did receive 1 unit PRBC, no evidence of hemodynamic compromise, no evidence of lower GI bleed, hemoglobin at discharge 8.5. Likely anemia is a combination of bone marrow suppression from chronic alcoholism. Nonetheless have discharged on Protonix, Carafate, with outpatient follow-up with general surgery for consideration of colonoscopy In terms of discharge plan, given patient's deconditioning, chronic alcoholism, Warnicke's encephalopathy Korsakoff syndrome, I highly encourage patient to go to long term for short-term rehab however patient declined. I have encouraged patient to have home health care, however patient declined. I highly encourage patient to have his discharge plan to a stable home environment however patient declined. I highly encourage patient for admission to inpatient alcohol rehab however patient declined. Patient was alert oriented x3, answering all questions appropriately, following all commands, he was of sound mind to make his own decisions. I advised patient my significant concerns of his home environment, as he lives in a trailer on his brother's property and does not have adequate water or electricity. In addition discharging him to his friend's home is of concern as there is a concern that the environment might encourage alcohol consumption. I advised patient that I am highly concerned about his alcohol consumption, that if he continues to drink alcohol he has a high risk of morbidity and mortality, high risk of including but not limited to permanent brain damage, falls, liver cirrhosis, esophageal varices, bleeding, aspiration. After discussion of the risks and benefits, he voiced understanding, all questions answered, he declined all my interventions, agreed to go stay with his friend. He did agree to take all the medications I have prescribed, to follow-up with [facility], to abstain from alcohol consumption. Physical Exam Const: COMMON NORMALS: no acute distress and patient oriented x3 Lymph: LYMPHATIC: no lymphadenopathy noted Resp: COMMON NORMALS: normal respiratory effort and clear to auscultation bilaterally AUSCULTATION: clear to auscultation bilaterally Cardio: COMMON NORMALS: regular rate, regular rhythm, S1 normal heart sound present, S2 normal heart sound present, No gallops present (Cardio), No clicks present (Cardio) and No murmurs present (Cardio) RATE: regular rate RHYTHM: regular rhythm HEART SOUNDS: S1 normal heart sound present and S2 normal heart sound present GI: COMMON NORMALS: Normal to inspection, nondistended, normoactive bowel sounds present, Soft to palpation and non-tender PALPATION: Yes Soft to palpation Neuro: COMMON NORMALS: patient oriented x3 Psych: COMMON NORMALS: Normal thought process present and speech normal SPEECH: Yes normal speech THOUGHT PROCESS: Normal thought process present Urinary Catheter Management^: Orourke: Cath Placed During This Visit: yes, but has since been removed by the nurse Reason for Continuing Indwelling Catheter: Decision to DC Catheter Urinary Catheter Date of Insertion: 09/04/20 Urinary Catheter Time of Insertion: 10:00 Date Urinary Catheter Removed: 09/12/20 Time Urinary Catheter Discontinued: 21:00 Discharge Data Data Completed and Pending: Completed Studies During Hospitalization Category Date Time Status CT abdomen pelvis w con* 39488 Rout ine Cat Scan 08/28/20 15:[address] abdomen pelvis w con* 26531 Rout ine Cat Scan 09/14/20 16:[address] chest wo con 7 1250 Routine Cat Scan 08/29/20 10:[address] head wo con* 7 0450 Stat Cat Scan 09/12/20 21:[address] head wo/w con 24195 Routine Cat Scan 08/29/20 10:[address] pelvis w con* [id number] Urgent Cat Scan 08/28/20 10:15 Completed CXRP [XR chest 1V portable [id number]] S tat Exams 09/05/20 19:00 Completed Modified barium s wallow [FL barium swallow modifd 742 30 Exams 09/05/20 09:12 Completed ] Routine XR cervical spine 3V* [id number] Routine Exams 09/23/20 11:21 Completed XR chest 1V madai ble 37720 Routine Exams 09/01/20 23:28 Completed XR chest 1V madai ble 36924 Routine Exams 09/05/20 06:00 Completed XR chest 1V madai ble 22686 Routine Exams 09/10/20 20:24 Completed XR chest 1V madai ble 62082 Routine Exams 09/19/20 08:24 Completed XR chest 1V madai ble 88185 Stat Exams 09/04/20 01:18 Completed XR chest 1V madai ble 23605 Stat Exams 09/21/20 15:30 Completed XR chest 1V madai ble 90765 Urgent Exams 08/28/20 10:15 Completed XR lumbar spine 1 V 24886 Routine Exams 09/23/20 11:21 Completed XR shoulder LT 1V 26764 Routine Exams 09/12/20 21:26 Completed XR shoulder LT 1V 52764 Routine Exams 09/23/20 11:21 Completed XR shoulder RT 1V 97200 Routine Exams 09/23/20 11:21 Completed MR head wo/w con 55265 Routine MRI 09/13/20 10:15 Completed Pathology: Surgic al [PTH] Routine Pth 08/30/20 14:10 Completed CV echo complete* 06126 Routine Ultrasound 09/02/20 13:26 Completed US gall bladder 7 6705 Urgent Ultrasound 08/28/20 12:01 Completed Pending at discharge Category Date Time Status Complete Blood Co unt w/Auto AM LABS Lab 09/26/20 04:00 Ordered Comprehensive Met abolic Panel AM LA BS Lab 09/26/20 04:00 Ordered Magnesium AM LABS Lab 09/26/20 04:00 Ordered Phosphorus AM LAB S Lab 09/26/20 04:00 Ordered Labs from last 24 hours 09/25/20 09/25/20 05:33 05:33 WBC 6.4 RBC 2.81 L Hgb 8.5 L Hct 28.0 L MCV 99.6 H MCH 30.2 MCHC 30.4 RDW 16.3 H Plt Count 540 H MPV 10.1 Neut % (Auto) 54.0 Lymph % (Auto) 25.0 Will % (Auto) 14.8 Eos % (Auto) 4.9 Baso % (Auto) 0.8 Neut # (Auto) 3.45 Lymph # (Auto) 1.6 Will # (Auto) 0.9 Eos # (Auto) 0.3 Baso # (Auto) 0.1 Nucleated RBC % (a uto) 0 Nucleated RBCs # 0.0 Sodium 141 Potassium 3.5 Chloride 104 Carbon Dioxide 28 Anion Gap 12.5 BUN 7 Creatinine 0.4 L GFR Calculation 221.7 H Glucose 94 Calculated Osmolal ity 290 Calcium 9.0 Phosphorus 4.3 Magnesium 1.4 L Total Bilirubin 0.3 AST 16 ALT 9 Alkaline Phosphata se 67 Total Protein 6.3 L Albumin 3.4 L Globulin 2.9 Vitals: Last Vital Signs Temp 99.1 F 09/25/20 08:00 Pulse 84 09/25/20 08:00 Resp 14 09/25/20 08:00 BP 148/93 09/25/20 08:00 Pulse Ox 96 09/25/20 08:00 Discharge Plan Discharge Patient Disposition: Home Condition: Stable Prescriptions: New levetiracetam 500 mg Tablet 250 mg PO BID@00,2099 30 Days Qty: 30 RF: 0 gabapentin 100 mg Capsule 100 mg PO BID 30 Days Qty: 60 RF: 0 metoprolol tartrate 25 mg Tablet 12.5 mg PO BID@899,2099 30 Days Qty: 30 RF: 0 Thera 400 mcg Tablet 1 tab PO DAILY 30 Days Qty: 30 RF: 0 nicotine 14 mg/24 hr Patch 24 Hour 1 patch transdermal DAILY 30 Days Qty: 30 RF: 0 sucralfate 100 mg/mL Suspension 1 g PO AC&BEDTIME 30 Days Qty: 1000 RF: 0 tamsulosin 0.4 mg Capsule 0.4 mg PO DAILY 30 Days Qty: 30 RF: 0 pantoprazole 40 mg Tablet,Delayed Release (Dr/Ec) 40 mg PO BID@00,2099 30 Days Qty: 60 RF: 0 Vitamin B-1 (mononitrate) 100 mg Tablet 100 mg PO DAILY 30 Days Qty: 30 RF: 0 Non-Aspirin 325 mg tablet 325 mg PO Q6H PRN (Reason: pain) 14 Days Qty: 60 RF: 0 levofloxacin 750 mg tablet 750 mg PO DAILY 5 Days Qty: 5 RF: 0 Discharge Orders: Discharge Order (Routine); Ordered 09/25/20 Ordered By: Eze Croft Referrals: [facility] [Outside] Shobha Barros MD [Physician] - 10/01/20 1:40 pm (NEEDS COLONOSCOPY/ EGD CONSULT) Discharge Diet: GI Soft Discharge Activity: Resume usual activity Patient Instructions: Alcohol Abuse, Alcohol Withdrawal, Metoprolol (By mouth), Sucralfate (By mouth), Thiamine (Vitamin B-1) (By mouth), Nicotine (Absorbed through the skin), Gabapentin (By mouth), Levofloxacin (By mouth), Tamsulosin (By mouth), Pantoprazole (By mouth), Levetiracetam (By mouth), How to Stop Smoking (GEN), Cigarette Smoking and Your Health (GEN), GI Discharge Instructions, Opioid Safety, Seizures Activity Restrictions/Additional Instructions: -Please stop alcohol consumption -Please take multivitamins as prescribed -Please follow-up with general physician in 1 to 2 weeks -Follow-up with general surgery -Follow-up with [facility] in 1 to 3 days Discharge Attestations Time Spent in Discharge Care*: other Quality Metrics Clinical Quality Measures During this hospital stay, did patient experience: None Coding Level of Care Code Acute [facility] note Exam Detailed Diagnoses Hypotension I95.9 Wernicke encephalopathy E51.2 Shoulder pain, bilateral M25.511; M25.512 Fever R50.9 Alcohol withdrawal delirium F10.231 At high risk for aspiration Z91.89 Acute respiratory failure with hypoxemia J96.01 Alcohol withdrawal seizure with delirium F10.231; R56.9 AMS (altered mental status) R40.4 Altered mental status type: transient alteration of awareness Acute alcohol intoxication F10.920 Complication of substance-induced condition: uncomplicated Gastritis K29.70 Anemia D64.9 Hypoxia R09.02 COPD (chronic obstructive pulmonary disease) J44.9 COPD type: unspecified COPD Urinary retention R33.9 Diarrhea R19.7 Aspiration pneumonia J69.0 Aspiration pneumonia type: due to regurgitated food Laterality: right Lung location: lower lobe of lung Physical deconditioning R53.81
== END 2020-09-25 16:11 | disposition home or self-care (01) | DRG 896 ==
LOC: ER 13:42 → MEDSURG 14:10 → ICU 08-29 11:49 → MEDSURG 09-02 15:12 → ICU 09-04 02:02 → MEDSURG 09-09 12:20
PROVIDERS: Family Medicine; Internal Medicine; Internal Medicine Pulmonary Disease; Surgery; Admitting Provider Student in an Organized Health Care Education/Training Program; Emergency Provider Physician Assistant; Visit Provider Family Medicine
PROC: 0DJ08ZZ Inspection of Upper Intestinal Tract, Via Natural or Artificial Opening Endoscopic (ICD-10-PCS; CPT 43235; principal; 2020-08-30 12:40)
DX: F10.221 Alcohol dependence with intoxication delirium (principal); J96.01 Acute respiratory failure with hypoxia; J69.0 Pneumonitis due to inhalation of food and vomit; A41.9 Sepsis, unspecified organism; G40.89 Other seizures; J44.1 Chronic obstructive pulmonary disease with (acute) exacerbation; J90 Pleural effusion, not elsewhere classified; F10.231 Alcohol dependence with withdrawal delirium; G62.1 Alcoholic polyneuropathy; Y90.8 Blood alcohol level of 240 mg/100 ml or more; D63.8 Anemia in other chronic diseases classified elsewhere; F10.251 Alcohol dependence with alcohol-induced psychotic disorder with hallucinations; K44.9 Diaphragmatic hernia without obstruction or gangrene; K29.20 Alcoholic gastritis without bleeding; G89.29 Other chronic pain; F17.210 Nicotine dependence, cigarettes, uncomplicated; R19.7 Diarrhea, unspecified; F41.9 Anxiety disorder, unspecified; F32.9 Major depressive disorder, single episode, unspecified; F39 Unspecified mood [affective] disorder; I10 Essential (primary) hypertension; R33.9 Retention of urine, unspecified; K29.80 Duodenitis without bleeding; K59.00 Constipation, unspecified; Z88.0 Allergy status to penicillin; M25.562 Pain in left knee; M25.561 Pain in right knee; M25.512 Pain in left shoulder; M25.511 Pain in right shoulder; K80.80 Other cholelithiasis without obstruction; R51.9 Headache, unspecified; R53.81 Other malaise; W01.0XXA Fall on same level from slipping, tripping and stumbling without subsequent striking against object, initial encounter; Y92.230 Patient room in hospital as the place of occurrence of the external cause; M54.2 Cervicalgia; I95.9 Hypotension, unspecified; L89.152 Pressure ulcer of sacral region, stage 2
CPT/HCPCS: 12345; 36415; 36416; 36430; 36600; 43239; 51702; 70450; 70470; 70553; 71045; 71250; 72020; 72040; 72193; 73020; 74177; 74230; 76705; 80048; 80051; 80053; 80177; 80202; 80306; 80307; 81001; 81003; 82140; 82150; 82274; 82330; 82436; 82550; 82607; 82728; 82746; 82803; 82805; 82962; 83036; 83540; 83550; 83605; 83630; 83690; 83735; 83880; 83935; 84100; 84133; 84145; 84300; 84443; 84484; 85018; 85025; 85610; 86140; 86677; 86850; 86900; 86920; 87040; 87070; 87077; 87186; 87205; 87426; 87449; 87493; 87506; 87641; 88305; 92523; 92526; 92610; 92611; 93005; 93306; 94640; 94664; 94669; 96365; 96367; 96372; 96375; 97110; 97116; 97161; 97166; 97530; 97535; 99285; C9113; J0743; J1170; J1650; J1940; J1953; J1956; J2060; J2270; J2405; J2704; J2920; J3370; J3411; J3475; J3480; J3490; J7030; J7040; J7050; J7512; J7608; J7626; P9016; P9047; Q9967; S0030

== ENCOUNTER 2020-11-01 22:46 | Emergency (ER) | payer MEDICAID, SELFPAY ==
[2020-11-01 22:54] VITALS: BP 112/76; PULSE 112; RESP 16; TEMP 36.7; O2SAT 97; BMI 20.4
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
[2020-11-02] MEDS: LORazepam 0.5 mg Tablet PO (01:44)
[2020-11-02] MEDS: ketorolac 30 mg/mL INJ 15 MG IM (01:46)
[2020-11-02 02:07] VITALS: PULSE 101; O2SAT 95
== END 2020-11-02 02:08 | disposition home or self-care (01) ==
PROVIDERS: Emergency Provider Nurse Practitioner Family; PCP Family Medicine
DX: M54.16 Radiculopathy, lumbar region (principal); M54.5 Low back pain; G89.29 Other chronic pain; J44.9 Chronic obstructive pulmonary disease, unspecified; I10 Essential (primary) hypertension; F17.210 Nicotine dependence, cigarettes, uncomplicated
CPT/HCPCS: 96372; 99283; J1885

== ENCOUNTER 2020-11-30 13:08 | Emergency (ER) | payer MEDICAID, SELFPAY ==
[2020-11-30] VITALS (7 sets, daily range): BP systolic 122–168; BP diastolic 77–112; PULSE 65–147; RESP 14–22; TEMP 36.7; O2SAT 96–98
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
--- NOTE | 2020-11-30 14:37 | CTR_ITS ---
PROCEDURE INFORMATION: Exam: CT Head Without Contrast Exam date and time: 11/30/2020 2:37 PM Age: 59 years old Clinical indication: Walking, difficulty; Additional info: Fall, balance problems TECHNIQUE: Imaging protocol: Computed tomography of the head without contrast. Radiation optimization: All CT scans at this facility use at least one of these dose optimization techniques: automated exposure control; mA and/or kV adjustment per patient size (includes targeted exams where dose is matched to clinical indication); or iterative reconstruction. COMPARISON: MR head wo/w con [id number] 09/13/2020 10:30 AM RADIATION DOSE METRICS: Total DLP (mGy-cm): 828.02 FINDINGS: Brain: No hemorrhage. Moderate diffuse cerebral atrophy. Moderate low attenuation signal changes of the periventricular and deep white matter tracts suggestive of chronic small vessel ischemic disease. No mass effect. Cerebral ventricles: No ventriculomegaly. Paranasal sinuses: Visualized sinuses are unremarkable. No fluid levels. Mastoid air cells: Visualized mastoid air cells are well aerated. Bones/joints: Unremarkable. No acute fracture. Soft tissues: Unremarkable. CT/CT head wo con* [id number] IMPRESSION: 1. No acute intracranial abnormality. 2. Moderate diffuse cerebral atrophy and sequela of chronic small vessel ischemic disease. Radiation Dose CTDIVOL = (mGy): DLP = 828.02 (mGy-cm)
--- NOTE | 2020-11-30 14:42 | ECG_ITS ---
"[facility] Test Date: 2020-11-30 Pat Name: Vasyl Reis Department: Room: Gender: Male System Administrator: : 1960 Requested By: Aaron Mcleod Order Number: [id number] Agustin MD: Karen Villarreal M.D. Measurements Intervals [place] Rate: 121 P: 82 IL: 163 QRS: 79 QRSD: 85 T: 89 QT: 418 QTc: 595 Interpretive Statements Multifocal atrial tachycardia NONSPECIFIC T-WAVE ABNORMALITY ABNORMAL RHYTHM ECG Compared to ECG 09/21/2020 22:12:55 T-wave abnormality now present Electronically Signed On 11-30-2020 19:33:27 CDT by Karen Villarreal M.D. [email or web address]"
--- NOTE | 2020-11-30 14:50 | CTR_ITS ---
PROCEDURE INFORMATION: Exam: CTA Chest With Contrast Exam date and time: 11/30/2020 2:50 PM Age: 59 years old Clinical indication: Abdominal pain; Acute; Chest pressure; Additional info: Chest pain, tachy, abd pain, fall, generalized complaints TECHNIQUE: Imaging protocol: Computed tomographic angiography of the chest with contrast. 3D rendering (Not supervised by radiologist): MIP and/or 3D reconstructed images were created by the technologist. Radiation optimization: All CT scans at this facility use at least one of these dose optimization techniques: automated exposure control; mA and/or kV adjustment per patient size (includes targeted exams where dose is matched to clinical indication); or iterative reconstruction. Contrast material: OMNI 350; Contrast volume: 75 ml; Contrast route: INTRAVENOUS (IV); COMPARISON: CT chest [facility] [id number] 08/29/2020 11:06 AM RADIATION DOSE METRICS: Total DLP (mGy-cm): 1042.21 FINDINGS: Pulmonary arteries: Normal. No pulmonary emboli. Aorta: Unremarkable. No aortic aneurysm. No aortic dissection. Lungs: Advanced centrilobular emphysematous changes in the lungs. No mass. No consolidation. Calcified granuloma noted in the right lower lobe. Pleural spaces: Unremarkable. No pneumothorax. No pleural effusion. Heart: Coronary artery calcifications. Lymph nodes: Unremarkable. No enlarged lymph nodes. Bones/joints: Generalized osseous demineralization. No acute fracture. Soft tissues: Unremarkable. IMPRESSION: 1. Negative for pulmonary embolism. No acute intrathoracic findings. 2. Advanced emphysema. PROCEDURE INFORMATION: Exam: CT Abdomen And Pelvis With Contrast Exam date and time: 11/30/2020 2:50 PM Age: 59 years old Clinical indication: Abdominal pain; Acute; Chest pressure; Additional info: Chest pain, tachy, abd pain, fall, generalized complaints TECHNIQUE: Imaging protocol: Computed tomography of the abdomen and pelvis with contrast. Radiation optimization: All CT scans at this facility use at least one of these dose optimization techniques: automated exposure control; mA and/or kV adjustment per patient size (includes targeted exams where dose is matched to clinical indication); or iterative reconstruction. Contrast material: OMNI 350; Contrast volume: 75 ml; Contrast route: INTRAVENOUS (IV); COMPARISON: CT chest [facility] [id number] 08/29/2020 11:06 AM RADIATION DOSE METRICS: Total DLP (mGy-cm): 1042.21 FINDINGS: Liver: Normal. No mass. Gallbladder and bile ducts: Normal. No calcified stones. No ductal dilation. Pancreas: Normal. No ductal dilation. Spleen: Normal. No splenomegaly. Adrenal glands: Normal. No mass. Kidneys and ureters: Normal. No hydronephrosis. Stomach and bowel: Unremarkable. No obstruction. No mucosal thickening. Appendix: No evidence of appendicitis. Intraperitoneal space: Unremarkable. No free air. No significant fluid collection. Vasculature: Unremarkable. No abdominal aortic aneurysm. Lymph nodes: Unremarkable. No enlarged lymph nodes. Urinary bladder: Unremarkable as visualized. Reproductive: Unremarkable as visualized. Bones/joints: Generalized osseous demineralization. No acute fracture. Soft tissues: Unremarkable. CT/CT angio chest w abd pel w con IMPRESSION: No acute abdominal/pelvic findings. Radiation Dose CTDIVOL = (mGy): DLP = 1042.21~1042.21 (mGy-cm)
--- NOTE | 2020-11-30 15:08 | PC.PHAR ---
pt states he takes no rx medications-pt has rxs on hold at [facility] from 09/25/20 for gabapentin 100mg bid,levetiracetam 250mg bid,metoprolol tartrate 12.5mg bid,nicotine 1 patch daily, aspirin 325mg q6h prn,pantoprazole 40mg bid,sucralfate 1 g before meals and hs,flomax 0.4mg daily,thera 1 tab daily, vitamin b-1 100mg po daily, [facility] never filled just transferred to [facility]-rxs written on 11/02/20 for celecoxib 100mg bid and lyrica 25mg bid pt states he never filled those medications either
[2020-11-30] MEDS: ondansetron 2 mg/ML SDV 2 mL 4 MG IVP (15:33)
[2020-11-30] MEDS: morphine 4 mg/mL SDV 1 mL IVP (15:34)
[2020-11-30] MEDS: sodium chloride 0.9% 500 ML IV (15:38)
[2020-11-30 15:39] LABS: Basophils % 0.4 %; Eosinophils # 0.1 10^3/uL (0.0-0.8); Eosinophils % 1.1 %; Hematocrit 37.2 % (42.0-52.0); Hemoglobin 11.9 g/dL (11.7-16.6); Lymphocytes # 1.6 10^3/uL (0.8-4.8); Lymphocytes % 29.4 %; Mean Corpuscular Hemoglobin 30.9 pg (28.0-34.0); Mean Corpuscular Volume 96.6 fl (80-94); Mean Platelet Volume 10.5 fL (7.4-10.4); Monocytes # 0.6 10^3/uL (0.2-0.9); Monocytes % 10.6 %; Neutrophils # 3.08 10^3/uL (1.8-7.7); Neutrophils % 58.3 %; Nucleated Red Blood Cells % 0 %; Platelet Count 230 10^3/cmm (130-400); Red Blood Count 3.85 10^6/uL (4.1-5.3); White Blood Count 5.3 10^3/uL (4.0-10.0)
[2020-11-30] MEDS: iohexol 350 mg/mL 100 mL Btl IV (15:49)
[2020-11-30 16:13] LABS: Blood Urine Neg (Negative); Glucose Urine UA 2+ (Normal); Ketones Urine 1+ (Negative); Nitrate Urine Negative (Negative); Protein Urine Neg (Negative); Specific Gravity, Urine 1.005 (1.005-1.030); Urine Appearance Hazy (CLEAR); Urine Color Amber (Yellow); pH Urine 8 (5-7)
[2020-11-30 16:13] LABS: Troponin(5th) Baseline 16 ng/L (0-15)
[2020-11-30 16:14] LABS: Add Urine Microscopic? YES; Bilirubin Urine 1+ (Negative); Leukocyte Esterase Urine Trace (Negative); Squamous Epithelial Cell Urine 0-4 /hpf (0-5); Sulfosalicylic Acid Urine Negative (Negative); Transitional Epi Cells Urine 0-4 /hpf; Urobilinogen Urine 4+ mg/dL (Negative); WBC Urine 0-4 /hpf (0-5)
[2020-11-30 16:15] LABS: Add Urine Culture? No; Bacteria Urine TRACE /hpf; Mucus Urine 2+ /hpf
[2020-11-30 16:18] LABS: Alanine Aminotransferase 36 U/L (0-41); Albumin Level 4.1 g/dL (3.5-5.2); Alkaline Phosphatase 72 IU/L (40-130); Aspartate Amino Transferase 88 U/L (0-40); Blood Urea Nitrogen 11 mg/dL (6-20); Calcium 8.9 mg/dL (8.5-10.5); Carbon Dioxide 34 mmol/L (22-29); Chloride 91 mmol/L (98-107); Globulin 2.7 g/dL (1.3-4.6); Glomerular Filtration Rate 116.2 mL/min (90-130); Glucose 108 mg/dL (65-115); Osmolality Calculated 278 mOsm/kg (285-295); Sodium 134 mmol/L (136-145); Thyroid Stimulating Hormone 1.84 uIU/mL (0.27-4.20); Total Bilirubin 0.6 mg/dL (0.15-1.2); Total Protein 6.8 g/dL (6.6-8.7)
[2020-11-30 16:19] LABS: Anion Gap 12.4 (5-19); Potassium 3.4 mmol/L (3.5-5.1)
--- NOTE | 2020-11-30 16:42 | ECG_ITS ---
[facility] Test Date: 2020-11-30 Pat Name: Vasyl Reis Department: Room: Gender: Male Diamond Picker: : 1960 Requested By: Aaron Mcleod Order Number: [id number] Agustin MD: Karen Villarreal M.D. Measurements Intervals [place] Rate: 78 P: 79 SC: 204 QRS: 78 QRSD: 81 T: 83 QT: 408 QTc: 466 Interpretive Statements SINUS RHYTHM Compared to ECG 11/30/2020 13:31:26 Sinus tachycardia no longer present T-wave abnormality no longer present Electronically Signed On 11-30-2020 19:41:42 CDT by Karen Villarreal M.D. [email or web address] [email or web address].[employer]/store/[id number]
[2020-11-30 17:31] LABS: Troponin 5 2HR 15.83 ng/L (0-15)
[2020-11-30 17:33] LABS: Troponin 5 2HR Delta -0.17 ABS# (0-10)
[2020-11-30] MEDS: potassium chloride ER 20 mEq Tablet 40 MEQ PO (17:33)
--- NOTE | 2020-11-30 18:21 | ECG_ITS ---
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 Measurements Intervals [place] Rate: 68 P: 75 SD: 214 QRS: 78 QRSD: 86 T: 83 QT: 422 QTc: 450 Interpretive Statements SINUS RHYTHM WITH FIRST DEGREE AV BLOCK Compared to ECG 11/30/2020 15:34:30 First degree AV block now present Electronically Signed On 11-30-2020 19:36:11 CDT by Karen Villarreal M.D. [email or web address] Conceptswayne general hospitalHactusuniversity hospitals [facility].[employer]/store/[id number]
--- NOTE | 2020-12-04 15:31 | DCPLANNER ---
bench manager had message to schedule an outpatient stress test for patient and a follow up appointment with Heart Care. bench manager faxed signed order to centralized scheduling, who will call patient with appointment information. bench manager also had message to schedule a follow up appointment for patient with heart care. bench manager called heart care, spoke with Ashley, gave clinic patients information. A follow up appointment was scheduled for , January 03, 2021 at 12:[address] Torres. bench manager spoke with patients nephew, gave him the appointment information.
--- NOTE | 2020-12-05 11:51 | DCPLANNER ---
Patient has a followup appointment scheduled for Friday, January 01, 2021 at 11:30 for a stress test. Patient has an echo cardiogram scheduled for Friday, January 01, 2021 at 1:30.
--- NOTE | 2021-01-04 09:04 | DCPLANNER ---
Patient had a stress test and echo scheduled for 01.01.21 - patient did not attend Patient had a follow up appointment with heart care scheduled for 01.03.21 - patient did attend
== END 2020-11-30 18:11 | disposition home or self-care (01) ==
PROVIDERS: Emergency Provider Emergency Medicine
DX: R07.89 Other chest pain (principal); J44.9 Chronic obstructive pulmonary disease, unspecified; I10 Essential (primary) hypertension; F17.210 Nicotine dependence, cigarettes, uncomplicated
CPT/HCPCS: 70450; 71275; 74177; 80053; 81001; 84443; 84484; 85025; 93005; 96361; 96374; 96375; 99284; J2270; J2405; J7040; Q9967

== ENCOUNTER 2020-12-30 21:10 | Emergency (ER) | payer MEDICAID, SELFPAY ==
[2020-12-30 21:12] VITALS: BMI 20.4
--- NOTE | 2020-12-30 21:13 | XRR_ITS ---
PROCEDURE INFORMATION: Exam: XR Chest Exam date and time: 12/30/2020 9:13 PM Age: 60 years old Clinical indication: Patient HX: Weakness; just doesn't feel well ; Hasn't eaten much lately TECHNIQUE: Imaging protocol: XR of the chest. Views: 1 view. COMPARISON: CR XR chest 1V portable [id number] 09/21/2020 3:49 PM FINDINGS: Lungs: Severe emphysema. The lungs are clear. No consolidation. Pleural spaces: Unremarkable. No pleural effusion. No pneumothorax. Heart/Mediastinum: Unremarkable. No cardiomegaly. Bones/joints: Multiple old bilateral rib fractures. Thoracic curvature. No fracture visualized. XR/XR chest 1V portable [id number] IMPRESSION: 1. No acute finding.
--- NOTE | 2020-12-30 21:14 | ECG_ITS ---
[facility] Test Date: 2020-12-30 Pat Name: Vasyl Reis Department: Room: Gender: Male Public Speaker: : 1960 Requested By: Crystal Javed Order Number: [id number] Reading MD: Measurements Intervals [place] Rate: 88 P: 82 [place]: 183 QRS: 77 QRSD: 71 T: 98 QT: 356 QTc: 432 Interpretive Statements SINUS RHYTHM NONSPECIFIC T-WAVE ABNORMALITY No previous ECG available for comparison [id number]
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
[2020-12-30 21:27] LABS: Basophils # 0.1 10^3/uL (0.0-0.1); Basophils % 0.8 %; Eosinophils # 0.2 10^3/uL (0.0-0.8); Eosinophils % 2.7 %; Hematocrit 35.3 % (42.0-52.0); Hemoglobin 11.5 g/dL (11.7-16.6); Lymphocytes # 2.5 10^3/uL (0.8-4.8); Lymphocytes % 37.9 %; Mean Corpuscular HGB Conc 32.6 g/dL (30.0-36.0); Mean Corpuscular Hemoglobin 31.1 pg (28.0-34.0); Mean Corpuscular Volume 95.4 fl (80-94); Mean Platelet Volume 9.5 fL (7.4-10.4); Monocytes # 0.6 10^3/uL (0.2-0.9); Monocytes % 9.3 %; Neutrophils # 3.27 10^3/uL (1.8-7.7); Neutrophils % 49.1 %; Nucleated Red Blood Cells % 0 %; Platelet Count 355 10^3/cmm (130-400); Red Cell Distribution Width 14.8 % (12.1-15.1); White Blood Count 6.7 10^3/uL (4.0-10.0)
[2020-12-30] MEDS: sodium chloride 0.9% 1,000 ML 999 ML IV (21:29)
[2020-12-30 21:50] VITALS: BP 131/79; PULSE 78; RESP 18; O2SAT 98
[2020-12-30 21:57] LABS: Alanine Aminotransferase 8 U/L (0-41); Albumin Level 3.8 g/dL (3.5-5.2); Alcohol Level 202 mg/dL (0-10); Alkaline Phosphatase 63 IU/L (40-130); Anion Gap 15.1 (5-19); Aspartate Amino Transferase 15 U/L (0-40); Blood Urea Nitrogen 7 mg/dL (6-20); Calcium 9.4 mg/dL (8.5-10.5); Carbon Dioxide 25 mmol/L (22-29); Chloride 98 mmol/L (98-107); Globulin 2.7 g/dL (1.3-4.6); Glomerular Filtration Rate 138.4 mL/min (90-130); Glucose 91 mg/dL (65-115); Osmolality Calculated 278 mOsm/kg (285-295); Potassium 3.1 mmol/L (3.5-5.1); Sodium 135 mmol/L (136-145); Thyroid Stimulating Hormone 2.89 uIU/mL (0.27-4.20); Total Bilirubin 0.2 mg/dL (0.15-1.2); Total Protein 6.5 g/dL (6.6-8.7)
[2020-12-30 22:15] LABS: Add Urine Microscopic? NO; Charge for UA Resulting for Rev
[2020-12-30 22:19] LABS: Bilirubin Urine Neg (Negative); Blood Urine Neg (Negative); Glucose Urine UA Norm (Normal); Ketones Urine Negative (Negative); Leukocyte Esterase Urine Negative (Negative); Nitrate Urine Negative (Negative); Protein Urine Neg (Negative); Urine Appearance Clear (CLEAR); Urine Color Yellow (Yellow); Urobilinogen Urine Norm (Negative); pH Urine 5 (5-7)
[2020-12-30 22:31] VITALS: BP 132/86; PULSE 80; RESP 20; O2SAT 98
== END 2020-12-30 22:30 | disposition home or self-care (01) ==
PROVIDERS: Emergency Provider Emergency Medicine
DX: G89.29 Other chronic pain (principal); M79.606 Pain in leg, unspecified; F10.920 Alcohol use, unspecified with intoxication, uncomplicated; J44.9 Chronic obstructive pulmonary disease, unspecified; I10 Essential (primary) hypertension; F17.210 Nicotine dependence, cigarettes, uncomplicated
CPT/HCPCS: 71045; 80053; 80307; 81003; 84443; 85025; 93005; 96360; 99284; J7030

== ENCOUNTER 2021-06-05 18:56 | Inpatient (IN) | payer MEDICAID, SELFPAY ==
[2021-06-05] VITALS (30 sets, daily range): BP systolic 111–145; BP diastolic 64–90; PULSE 86–105; RESP 16–25; TEMP 36.5–36.6; O2SAT 88–98; BMI 20.5
--- NOTE | 2021-06-05 19:00 | CTR_ITS ---
PROCEDURE INFORMATION: Exam: CT Head Without Contrast Exam date and time: 06/05/2021 7:00 PM Age: 60 years old Clinical indication: Injury or trauma; Patient HX: Fall yesterday striking forehead TECHNIQUE: Imaging protocol: Computed tomography of the head without contrast. Radiation optimization: All CT scans at this facility use at least one of these dose optimization techniques: automated exposure control; mA and/or kV adjustment per patient size (includes targeted exams where dose is matched to clinical indication); or iterative reconstruction. COMPARISON: CT head wo con* [id number] 11/30/2020 3:42 PM RADIATION DOSE METRICS: Total DLP (mGy-cm): 1424.66 FINDINGS: Brain: Moderate diffuse white matter disease likely reflecting chronic microvascular ischemic changes. Cerebral ventricles: No ventriculomegaly. Paranasal sinuses: Visualized sinuses are unremarkable. No fluid levels. Mastoid air cells: Visualized mastoid air cells are well aerated. Bones/joints: Unremarkable. No acute fracture. Soft tissues: Unremarkable. CT/CT head wo con* [id number] IMPRESSION: Negative for intracranial hemorrhage or mass effect
--- NOTE | 2021-06-05 19:00 | ECG_ITS ---
[facility] Test Date: 2021-06-05 Pat Name: Vasyl Reis Department: Room: Gender: Male Wire Strander: : 1960 Requested By: Crystal Javed Order Number: [id number] Agustin MD: Karen Villarreal M.D. Measurements Intervals [place] Rate: 102 P: 101 [place]: 161 QRS: 83 QRSD: 80 T: 90 QT: 393 QTc: 513 Interpretive Statements SINUS TACHYCARDIA ABNORMAL RHYTHM ECG Compared to ECG 12/30/2020 21:20:37 Sinus rhythm no longer present T-wave abnormality no longer present Electronically Signed On 06-05-2021 20:08:24 LOCKET MAKER by Karen Villarreal M.D. [id number]
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
[2021-06-05 19:25] LABS: Basophils # 0.1 10^3/uL (0.0-0.1); Basophils % 0.3 %; Hematocrit 36.7 % (42.0-52.0); Hemoglobin 12.3 g/dL (11.7-16.6); Lymphocytes # 0.7 10^3/uL (0.8-4.8); Lymphocytes % 3.2 %; Mean Corpuscular HGB Conc 33.5 g/dL (30.0-36.0); Mean Corpuscular Hemoglobin 34.7 pg (28.0-34.0); Mean Corpuscular Volume 103.7 fl (80-94); Mean Platelet Volume 9.9 fL (7.4-10.4); Monocytes % 4.4 %; Neutrophils # 20.61 10^3/uL (1.8-7.7); Neutrophils % 91.7 %; Nucleated Red Blood Cells % 0 %; Platelet Count 318 10^3/cmm (130-400); Red Blood Count 3.54 10^6/uL (4.1-5.3); Red Cell Distribution Width 13.2 % (12.1-15.1); White Blood Count 22.5 10^3/uL (4.0-10.0)
--- NOTE | 2021-06-05 19:28 | CTR_ITS ---
PROCEDURE INFORMATION: Exam: CT Chest With Contrast; Diagnostic Exam date and time: 06/05/2021 7:28 PM Age: 60 years old Clinical indication: Abdominal pain; Generalized; Right-sided; Additional info: Abd pain, SOB, right sided rib pain. PT fell today hitting head and right side of ribs. TECHNIQUE: Imaging protocol: Diagnostic computed tomography of the chest with contrast. Radiation optimization: All CT scans at this facility use at least one of these dose optimization techniques: automated exposure control; mA and/or kV adjustment per patient size (includes targeted exams where dose is matched to clinical indication); or iterative reconstruction. Contrast material: OMNI 300; Contrast volume: 95 ml; Contrast route: INTRAVENOUS (IV); COMPARISON: CT abdomen pelvis w con* [id number] 09/14/2020 8:54 PM RADIATION DOSE METRICS: Total DLP (mGy-cm): 990.8 FINDINGS: Lungs: Emphysematous changes. Patchy bilateral airspace opacities may reflect pneumonic infiltrates. Pleural spaces: Small right pleural effusion. Heart: Coronary artery atherosclerotic calcifications. Aorta: Unremarkable. No aortic aneurysm. Lymph nodes: Several prominent mediastinal lymph nodes measuring up to 6.7 mm, nonspecific. Bones/joints: Bilateral chronic rib fractures. Soft tissues: Unremarkable. PROCEDURE INFORMATION: Exam: CT Abdomen And Pelvis With Contrast Exam date and time: 06/05/2021 7:28 PM Age: 60 years old Clinical indication: Abdominal pain; Generalized; Right-sided; Additional info: Abd pain, SOB, right sided rib pain. PT fell today hitting head and right side of ribs. TECHNIQUE: Imaging protocol: Computed tomography of the abdomen and pelvis with contrast. Radiation optimization: All CT scans at this facility use at least one of these dose optimization techniques: automated exposure control; mA and/or kV adjustment per patient size (includes targeted exams where dose is matched to clinical indication); or iterative reconstruction. Contrast material: OMNI 300; Contrast volume: 95 ml; Contrast route: INTRAVENOUS (IV); COMPARISON: CT abdomen pelvis w con* [id number] 09/14/2020 8:54 PM RADIATION DOSE METRICS: Total DLP (mGy-cm): 990.8 FINDINGS: Liver: Normal. No mass. Gallbladder and bile ducts: Normal. No calcified stones. No ductal dilation. Pancreas: Normal. No ductal dilation. Spleen: Normal. No splenomegaly. Adrenal glands: Normal. No mass. Kidneys and ureters: Right kidney cyst, negative for follow-up advised. Stomach and bowel: Prominent fluid throughout the small bowel without dilation may reflect an enteritis. Appendix: No evidence of appendicitis. Intraperitoneal space: Unremarkable. No free air. No significant fluid collection. Vasculature: Unremarkable. No abdominal aortic aneurysm. Lymph nodes: Unremarkable. No enlarged lymph nodes. Urinary bladder: Unremarkable as visualized. Reproductive: Unremarkable as visualized. Bones/joints: Unremarkable. No acute fracture. Soft tissues: Unremarkable. CT/CT chest abd pel w con* IMPRESSION: 1. Negative for acute traumatic injury to the chest. 2. Small right pleural effusion. 3. Coronary artery atherosclerotic calcifications. 4. Several prominent mediastinal lymph nodes measuring up to 6.7 mm, nonspecific. 5. Emphysematous changes. 6. Patchy bilateral airspace opacities may reflect pneumonic infiltrates. 7. Bilateral chronic rib fractures. IMPRESSION: 1. Negative for acute traumatic injury to the abdomen or pelvis. 2. Prominent fluid throughout the small bowel without dilation may reflect an enteritis. 3. Right kidney cyst, negative for follow-up advised.
[2021-06-05] MEDS: sodium chloride 0.9% 1,000 ML 999 ML IV ×2 (19:42→20:24)
[2021-06-05] MEDS: multivitamin therapeutic Tablet 1 TAB PO (19:44)
[2021-06-05] MEDS: iohexol 300 mg/mL 100 mL Btl IV (19:52)
[2021-06-05 19:55] LABS: Alanine Aminotransferase 11 U/L (0-41); Albumin Level 3.8 g/dL (3.5-5.2); Alcohol Level 245 mg/dL (0-10); Alkaline Phosphatase 76 IU/L (40-130); Anion Gap 21.2 (5-19); Aspartate Amino Transferase 23 U/L (0-40); Blood Urea Nitrogen 12 mg/dL (6-20); Calcium 8.7 mg/dL (8.5-10.5); Carbon Dioxide 22 mmol/L (22-29); Chloride 95 mmol/L (98-107); Globulin 3.3 g/dL (1.3-4.6); Glomerular Filtration Rate 170.8 mL/min (90-130); Glucose 126 mg/dL (65-115); Osmolality Calculated 279 mOsm/kg (285-295); Potassium 4.2 mmol/L (3.5-5.1); Sodium 134 mmol/L (136-145); Total Bilirubin 0.6 mg/dL (0.15-1.2); Total Protein 7.1 g/dL (6.6-8.7)
[2021-06-05] MEDS: cefTRIAXone 1,000 MG in sodium chloride 0.9% (plus) 50 ML 100 MG IV (20:25)
[2021-06-05 20:38] LABS: Add Urine Microscopic? NO; Charge for UA Resulting for Rev
[2021-06-05 20:49] LABS: Bilirubin Urine Neg (Negative); Blood Urine Neg (Negative); Glucose Urine UA Norm (Normal); Ketones Urine Negative (Negative); Leukocyte Esterase Urine Negative (Negative); Nitrate Urine Negative (Negative); Protein Urine Neg (Negative); Specific Gravity, Urine 1.005 (1.005-1.030); Urine Appearance Clear (CLEAR); Urine Color Straw (Yellow); Urobilinogen Urine Neg (Negative); pH Urine 5 (5-7)
[2021-06-05] MEDS: ondansetron 2 mg/ML SDV 2 mL 4 MG IVP (20:51)
[2021-06-05] MEDS: azithromycin 500 MG in sodium chloride 0.9% 250 ML 250 MG IV (20:59)
[2021-06-05] MEDS: morphine 4 mg/mL SDV 1 mL IVP (20:59)
[2021-06-05 22:01] LABS: Troponin T (5th) Once 12 ng/L (0-15)
[2021-06-05 22:04] LABS: Magnesium 1.2 mg/dL (1.7-2.3)
[2021-06-05 22:07] LABS: Lactic Sepsis W/Reflex 5.5 mmol/L (0.5-2.2)
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
[2021-06-05 22:21] LABS: Adenovirus Not Detected (NOT DETECT); Chlamydia Pneumoniae Not Detected (NOT DETECT); Coronavirus 229E,HKU1,NL63,OC4 Not Detected (NOT DETECT); Human Metapneumovirus Not Detected (NOT DETECT); Human Rhinovirus/Enterovirus Not Detected (NOT DETECT); Influenza A Not Detected (NOT DETECT); Influenza A H1 Not Detected (NOT DETECT); Influenza A H1-2009 Not Detected (NOT DETECT); Influenza A H3 Not Detected (NOT DETECT); Influenza B Not Detected (NOT DETECT); Mycoplasma Pneumoniae Not Detected (NOT DETECT); Parainfluenza Virus Type 1 Not Detected (NOT DETECT); Parainfluenza Virus Type 2 Not Detected (NOT DETECT); Parainfluenza Virus Type 3 Not Detected (NOT DETECT); Parainfluenza Virus Type 4 Not Detected (NOT DETECT); Respiratory Syncytial Virus A Not Detected (NOT DETECT); Respiratory Syncytial Virus B Not Detected (NOT DETECT); SARS-COV-2 Not Detected (NOT DETECT)
[2021-06-05] MEDS: sodium chloride 0.9% 1,000 ML 75 ML IV (22:42)
[2021-06-05] MEDS: acetaminophen 325 mg Tablet 650 MG PO (22:42)
--- NOTE | 2021-06-05 23:00 | PC.NURSE ---
Transfer Note Patient transferred to ICU from ER via wheelchair. Handoff received from BRETT Amador. Patient oriented to environment and equipment. Covering service notified. Orders reviewed and will continue to monitor. Family and/or sales representative jewelry notified. Patient belongings include belt, shoes, hat, and clothing placed in closet at bedside.
[2021-06-05 23:31] LABS: Reflex Lactate Order REFLEX LACTIC ORDERD
[2021-06-06] VITALS (88 sets, daily range): BP systolic 116–166; BP diastolic 68–113; PULSE 84–119; RESP 16–33; TEMP 36.7–37.7; O2SAT 85–97; BMI 16.8
[2021-06-06 00:03] LABS: Lactic Acid level (Lactate) 2.7 mmol/L (0.5-2.2)
[2021-06-06] MEDS: LORazepam 2 mg/mL INJ 1 mL IVP ×2 (00:39→08:02)
[2021-06-06 04:41] LABS: Basophils # 0.1 10^3/uL (0.0-0.1); Basophils % 0.3 %; Hematocrit 32.1 % (42.0-52.0); Hemoglobin 10.8 g/dL (11.7-16.6); Lymphocytes # 1.8 10^3/uL (0.8-4.8); Lymphocytes % 10.5 %; Mean Corpuscular HGB Conc 33.6 g/dL (30.0-36.0); Mean Corpuscular Hemoglobin 34.5 pg (28.0-34.0); Mean Corpuscular Volume 102.6 fl (80-94); Mean Platelet Volume 9.9 fL (7.4-10.4); Monocytes # 0.7 10^3/uL (0.2-0.9); Monocytes % 3.8 %; Neutrophils # 14.62 10^3/uL (1.8-7.7); Nucleated Red Blood Cells % 0 %; Platelet Count 274 10^3/cmm (130-400); Red Blood Count 3.13 10^6/uL (4.1-5.3); Red Cell Distribution Width 13.4 % (12.1-15.1); White Blood Count 17.2 10^3/uL (4.0-10.0)
[2021-06-06 05:03] LABS: Alanine Aminotransferase 9 U/L (0-41); Albumin Level 3.3 g/dL (3.5-5.2); Alkaline Phosphatase 70 IU/L (40-130); Anion Gap 9.9 (5-19); Aspartate Amino Transferase 18 U/L (0-40); Blood Urea Nitrogen 10 mg/dL (6-20); Calcium 8.1 mg/dL (8.5-10.5); Carbon Dioxide 27 mmol/L (22-29); Chloride 102 mmol/L (98-107); Globulin 2.7 g/dL (1.3-4.6); Glomerular Filtration Rate 220.9 mL/min (90-130); Glucose 85 mg/dL (65-115); Osmolality Calculated 278 mOsm/kg (285-295); Potassium 3.9 mmol/L (3.5-5.1); Sodium 135 mmol/L (136-145); Total Bilirubin 0.6 mg/dL (0.15-1.2)
--- NOTE | 2021-06-06 05:16 | PC.NURSE ---
Shift Note Frequent safety and comfort rounds continue. Orders and/or nursing care completed as indicated. Patient monitored for response to intervention and treatment(s). Education provided includes oxygen requirements. Patient verbalizes understanding of teaching but requires reinforcement. Patient is having auditory and visual disturbances, PRN Ativan administered per CIWA scale. Remains on 2LNC with no wounds/skin issues at this time. Patient reported pain overnight, PRN medication was administered. Will continue to monitor.
[2021-06-06] MEDS: azithromycin 250 mg Tablet 500 MG PO (08:04)
[2021-06-06] MEDS: folic acid 1 mg Tablet PO (08:05)
[2021-06-06] MEDS: multivitamin therapeutic Tablet 1 TAB PO (08:05)
[2021-06-06] MEDS: thiamine 100 mg Tablet PO (08:05)
[2021-06-06] MEDS: LORazepam 2 mg Tablet PO ×2 (10:01→15:30)
--- NOTE | 2021-06-06 10:20 | PC.CHAP ---
Pastoral Care Encounter/Spiritual Assessment Type of Contact [] Declined wastewater supervisor visit [] Patient/Family/Request visit [] Outpatient visit [] Follow-up visit [] Physician referral [] Code/Alert [x] Routine visit [] Staff referral [] Actively dying [] Patient sleeping [] Family support [] [] Out of room [] Palliative care [] [x] Receiving care in room [] Pre-surgical visit [] Trauma [] Long length of stay [x] ICU visit [] Other: Relational/Emotional Strength [] Patient feels connected with others/family/visitors/staff [] Distress [] Loneliness/isolation [] Abandonment Spirituality of Patient [] Person of Keisha [] Attends Advent of their Keisha [] Believes in Prayer [] Reads Bible or Restorationist materials [] There are Spiritual issues to be addressed Outpatient Coder Interventions [x] Prayer [] Active listening [] Non-anxious presence [] Spiritual/emotional support [] Crisis/trauma care [] Spiritual counseling [] Bereavement support [] Provided bereavement packet [] Provided Bible/devotional materials [] Provided toy/stuffed animal, coloring book to patient or family member [] Provided Communion [] Anointing/[place] [] Salvation [x] Completed spiritual assessment [] Other: Impact on Illness or Injury [] Angry [] Fearful [] Anxious [] Often cries [] Exhaustion [] Unable to work [] Unable to attend synagogue [] Unable to walk/stand [] Unable to read [] Unable to drive [] Unable to eat/drink [] Unable to sleep [] Unable to be with family [] Patient intubated [] Other: Summary Time spent with patient
[2021-06-06 10:29] LABS: Amphetamines Screen Urine Negative (Negative); Barbiturates Screen Urine Negative (Negative); Benzodiazepines Screen Urine Negative (Negative); Cocaine Screen Urine Negative (Negative); Opiate Screen Urine Negative (Negative); PCP Screen Urine Negative (Negative); THC Screen Urine Negative (Negative)
[2021-06-06 11:09] LABS: Iron 49 ug/dL (59-158); Percent Saturation 22.6 % (20-50); Total Iron Binding Capacity 216 mcg/dl; Unsaturated Iron Binding 167 ug/dL (112-347)
[2021-06-06 11:24] LABS: Vitamin B12 485 pg/mL (232-1245)
[2021-06-06 11:36] LABS: Folate Level > 20.0 ng/mL (4.5-32.2)
[2021-06-06] MEDS: sodium chloride 0.9% 1,000 ML 75 ML IV (13:43)
--- NOTE | 2021-06-06 14:20 | P.PN_ITS ---
Subjective Subjective: No events overnight. On examination patient lying comfortably in bed. Asking for food as he is hungry. No signs of alcohol withdrawal for now. Remains on 2 L. Vitals/I&O/Wt Last Vital Signs Temp 98.9 F 06/06/21 14:00 Pulse 102 H 06/06/21 14:00 Resp 27 H 06/06/21 14:00 BP 145/98 06/06/21 14:00 Pulse Ox 94 06/06/21 14:00 06/05/21 06/06/21 06/06/21 22:59 06:59 14:59 Intake Total 2300.000 / 2300.000 50 / 2350.000 1600 / 1600 Output Total 450 / 450 600 / 600 Balance 2300.000 / 2300.000 -400 / 0466.435 4824 / 1000 Weight last 48 hrs Weight 56.387 kg Weight 70.76 kg Physical Exam Narrative: GEN: Awake, alert and oriented, no acute distress CVS: S1S2 N RS: CTA B/L Abd: Soft, nt/nd , bs+ FARROWING WORKER: no focal neuro deficits Data : 06/06/21 04:27 06/06/21 04:27 Micro: Microbiology 06/05/21 20:23 Bacterial Antigens - Final Urine Kidney 06/06/21 08:20 Legionella Urinary Antigen - Final Unknown Source 06/05/21 20:24 Blood Culture - Preliminary Blood SPECIMEN COLLECTED 06/05/21 20:20 Blood Culture - Preliminary Blood SPECIMEN COLLECTED A&P Assessment and plan (1) Pneumonia: Concern for community acquired pneumonia vs aspiration pneumonia Started on empiric treatment with ceftriaxone and azithromycin DuoNebs, budesonide. Check MRSA swab, sputum culture. Urine Legionella, bacterial antigen negative. In past sputum culture positive for Proteus mirabilis. Follow blood cultures. Oxygen supplementation keeping saturation over 90%. Status: Acute (2) Fall: no intracranial injuries, no trauma related injuries on CT CAP Has a h/o seziures related to withdrawal. Monitor closely for seziure episodes as cause of passing out , though falls may be related to alcohol intoxication Status: Acute (3) Alcohol intoxication: blood alcohol level 245 monitor for withdrawal has a prior h/o withdrawal seizures CIWA protocol, Ativan per protocol Aspiration precautions and seizure precautions Thiamine 100mg po daily for h/o wernicke Korsakoff encephalopathy in 2021 Folic acid and MV daily. Status: Acute (4) Hypertension: continue home dose of metroprolol. BP currently within range Status: Acute Plan Lovenox for DVT prophylaxis. Protonix for PUD prophylaxis. Regular diet. Attestations Medical Necessity Statement*: Requires further hospitalization for management of alcohol intoxication, history of Wernicke's encephalopathy, pneumonia Time Spent in Patient Care: Greater than 35 minutes Coding Level of Care Code Acute Vacuum Cleaner Assembler for [facility] Diagnoses Pneumonia J18.9 Fall W19.XXXA Alcohol intoxication F10.929 Hypertension I10
[2021-06-06] MEDS: ipratropium-albuterol 3 mL Neb INHALATION (15:27)
[2021-06-06] MEDS: enoxaparin 40 mg/0.4 mL Syringe SUBCUT (15:28)
[2021-06-06] MEDS: metoprolol tartrate 1 mg/1 mL SDV 5 mL 5 MG IVP (16:47)
--- NOTE | 2021-06-06 16:54 | PC.NURSE ---
Pt persistently moves his nasal cannula to below his chin or up past his forehead.
[2021-06-06] MEDS: ferrous gluconate 324 mg Tablet PO (17:59)
[2021-06-06] MEDS: metoprolol tartrate 25 mg Tablet PO (17:59)
--- NOTE | 2021-06-06 18:49 | PC.NURSE ---
Shift Note Pt has rested in bed throughout shift. He stated he has fallen at home and he is afraid to move for falling. He has scored 15-9 on the CIWA. He has ate part of his meals. His main thing he requests coffee often. He does not leave the O2 cannula in his nose it is more often than not in his hair line or under his chin. He had an elevated heart rate this afternoon, metoprolol IVP administered, heart rate decreased to 90's. Frequent safety and comfort rounds continue. Orders and/or nursing care completed as indicated. Patient monitored for response to intervention and treatment(s). Education provided includes Metoprolol, ativan and plan of care. Patient and/or registration representative Progress, plan of care and medications. Will continue to monitor.
[2021-06-06] MEDS: cefTRIAXone 1,000 MG in sodium chloride 0.9% (plus) 50 ML 100 MG IV (21:15)
[2021-06-07] VITALS (21 sets, daily range): BP systolic 125–182; BP diastolic 86–113; PULSE 87–114; RESP 16–26; TEMP 36.3–37; O2SAT 88–98; BMI 16.3
[2021-06-07] MEDS: LORazepam 2 mg/mL INJ 1 mL IVP ×2 (00:17→20:19)
[2021-06-07] MEDS: sodium chloride 0.9% 1,000 ML 75 ML IV ×2 (02:50→17:12)
[2021-06-07 04:03] LABS: Basophils % 0.2 %; Eosinophils % 0.4 %; Hematocrit 31.8 % (42.0-52.0); Hemoglobin 10.6 g/dL (11.7-16.6); Lymphocytes # 1.4 10^3/uL (0.8-4.8); Lymphocytes % 12.4 %; Mean Corpuscular HGB Conc 33.3 g/dL (30.0-36.0); Mean Corpuscular Hemoglobin 34.2 pg (28.0-34.0); Mean Corpuscular Volume 102.6 fl (80-94); Mean Platelet Volume 10.6 fL (7.4-10.4); Monocytes # 0.5 10^3/uL (0.2-0.9); Monocytes % 4.7 %; Neutrophils # 8.98 10^3/uL (1.8-7.7); Nucleated Red Blood Cells % 0 %; Platelet Count 248 10^3/cmm (130-400); White Blood Count 10.9 10^3/uL (4.0-10.0)
[2021-06-07 04:20] LABS: Alanine Aminotransferase 7 U/L (0-41); Albumin Level 3.4 g/dL (3.5-5.2); Alkaline Phosphatase 82 IU/L (40-130); Anion Gap 16.6 (5-19); Aspartate Amino Transferase 17 U/L (0-40); Blood Urea Nitrogen 7 mg/dL (6-20); Calcium 8.7 mg/dL (8.5-10.5); Carbon Dioxide 25 mmol/L (22-29); Chloride 97 mmol/L (98-107); Globulin 2.3 g/dL (1.3-4.6); Glomerular Filtration Rate 170.8 mL/min (90-130); Glucose 83 mg/dL (65-115); Osmolality Calculated 277 mOsm/kg (285-295); Potassium 3.6 mmol/L (3.5-5.1); Sodium 135 mmol/L (136-145); Total Bilirubin 0.7 mg/dL (0.15-1.2); Total Protein 5.7 g/dL (6.6-8.7)
[2021-06-07 04:24] LABS: Chol HDL Ratio 1.59 mg/dL (1.0-5.00); Cholesterol 116 mg/dL (0-200); HDL Cholesterol 73 mg/dL (60-100); LDL Cholesterol Calculated 27 mg/dL (50-129); Triglycerides 79 mg/dL (0-150); VLDL Cholestrol Calculation 16 mg/dL (0-30)
[2021-06-07 04:29] LABS: Estmated Average Glucose 85; Hemoglobin A1C 4.6 % (4.0-6.0)
--- NOTE | 2021-06-07 06:47 | PC.NURSE ---
Shift Summary Patient had an uneventful shift, he remains confused. Nurse frequently reoriented patient to surroundings and place. Patient had 1380 mls of urine out overnight. NS is infusing please see MAR for infusion rates. No wounds or skin issues noted at this time.
[2021-06-07] MEDS: metoprolol tartrate 25 mg Tablet PO (08:02)
[2021-06-07] MEDS: multivitamin therapeutic Tablet 1 TAB PO (08:02)
[2021-06-07] MEDS: ferrous gluconate 324 mg Tablet PO ×2 (08:02→17:31)
[2021-06-07] MEDS: thiamine 100 mg Tablet PO (08:02)
[2021-06-07] MEDS: LORazepam 2 mg Tablet PO ×3 (08:02→16:45)
[2021-06-07] MEDS: folic acid 1 mg Tablet PO (08:02)
[2021-06-07] MEDS: acetaminophen 325 mg Tablet 650 MG PO (08:03)
[2021-06-07] MEDS: azithromycin 250 mg Tablet 500 MG PO (08:03)
[2021-06-07] MEDS: pantoprazole DR 40 mg Tablet PO (08:03)
[2021-06-07] MEDS: ipratropium-albuterol 3 mL Neb INHALATION ×4 (08:18→22:00)
[2021-06-07] MEDS: budesonide 0.5 mg/2 mL Neb INHALATION ×2 (08:19→22:01)
--- NOTE | 2021-06-07 10:10 | PC.CHAP ---
Pastoral Care Encounter/Spiritual Assessment Type of Contact [] Declined sound engineer visit [] Patient/Family/Request visit [] Outpatient visit [] Follow-up visit [] Physician referral [] Code/Alert [x] Routine visit [] Staff referral [] Actively dying [x] Patient sleeping [] Family support [] [] Out of room [] Palliative care [] [] Receiving care in room [] Pre-surgical visit [] Trauma [] Long length of stay [x] ICU visit [] Other: Relational/Emotional Strength [] Patient feels connected with others/family/visitors/staff [] Distress [] Loneliness/isolation [] Abandonment Spirituality of Patient [] Person of Keisha [] Attends Alevism of their Keisha [] Believes in Prayer [] Reads Bible or Pentecostal materials [] There are Spiritual issues to be addressed Certified Credit Counselor Interventions [x] Prayer [] Active listening [] Non-anxious presence [] Spiritual/emotional support [] Crisis/trauma care [] Spiritual counseling [] Bereavement support [] Provided bereavement packet [] Provided Bible/devotional materials [] Provided toy/stuffed animal, coloring book to patient or family member [] Provided Communion [] Anointing/[place] [] Salvation [x] Completed spiritual assessment [] Other: Impact on Illness or Injury [] Angry [] Fearful [] Anxious [] Often cries [] Exhaustion [] Unable to work [] Unable to attend muslim [] Unable to walk/stand [] Unable to read [] Unable to drive [] Unable to eat/drink [] Unable to sleep [] Unable to be with family [] Patient intubated [] Other: Summary Time spent with patient
[2021-06-07] MEDS: nicotine 14 mg Patch 1 PATCH TRANSDERMA (12:38)
--- NOTE | 2021-06-07 12:46 | P.PN_ITS ---
Subjective Subjective: Patient was seen and examined this morning, he was complaining of generalized body pain, says that morphine works fine for him. Medications: Medication Review Details: Generic Name Dose Route Start Last Admin Trade Name Clemente PRN Reason Stop Dose Admin Acetaminophen 650 mg 06/05/21 22:04 06/07/21 08:03 Acetaminophen 32 5 Mg Tablet PO 650 mg Q6H PRN Administration MILD PAIN Albuterol/Ipratrop ium 3 ml 06/06/21 16:00 06/07/21 11:21 Ipratropium-Albu terol 3 Ml Neb INHALATION 3 ml QID.RESPIRATORY S CH Administration Azithromycin 500 mg 06/06/21 09:00 06/07/21 08:03 Azithromycin 250 Mg Tablet PO 06/08/21 08:59 500 mg DAILY PRECIOUS Administration Protocol Budesonide 0.5 mg 06/06/21 20:00 06/07/21 08:19 Budesonide 0.5 M g/2 Ml Neb INHALATION 0.5 mg BID.RESPIRATORY S CH Administration Enoxaparin Sodium 40 mg 06/06/21 14:30 06/06/21 15:28 Enoxaparin 40 Mg /0.4 Ml Syringe SUBCUT 40 mg Q24H PRECIOUS Administration Ferrous Gluconate 324 mg 06/06/21 18:00 06/07/21 08:02 Ferrous Gluconat e 324 Mg Tablet PO 324 mg BIDWM PRECIOUS Administration Folic Acid 1 mg 06/06/21 09:00 06/07/21 08:02 Folic Acid 1 Mg Tablet PO 1 mg DAILY PRECIOUS Administration Ceftriaxone Sodium 1,000 mg/ 50 mls @ 100 mls/ hr 06/06/21 20:00 06/06/21 21:45 Sodium Chloride IV Infused Q24H PRECIOUS Infusion Protocol Sodium Chloride 1,000 mls @ 75 ml s/hr 06/05/21 22:04 06/07/21 02:50 Sodium Chloride 0.9% IV 75 mls/hr .[id number] PRECIOUS Administration Lorazepam 2 mg 06/05/21 22:04 06/07/21 12:38 Lorazepam 2 Mg T ablet PO 2 mg Q4H PRN Administration WITHDRAWAL Protocol Lorazepam 2 mg 06/05/21 22:04 06/07/21 00:17 Lorazepam 2 Mg/M l Inj 1 Ml IVP 2 mg PRN PRN Administration WITHDRAWAL Protocol Multivitamins Ther apeutic 1 tab 06/06/21 09:00 06/07/21 08:02 Multivitamin The rapeutic Tablet PO 1 tab DAILY PRECIOUS Administration Nicotine 1 patch 06/07/21 12:20 06/07/21 12:38 Nicotine 14 Mg P atch TRANSDERMA 1 patch DAILY PRECIOUS Administration Pantoprazole Sodiu m 40 mg 06/07/21 09:00 06/07/21 08:[address] 40 Mg Tablet PO 40 mg DAILY PRECIOUS Administration Thiamine Mononitra te 100 mg 06/06/21 09:00 06/07/21 08:02 Thiamine 100 Mg Tablet PO 100 mg DAILY PRECIOUS Administration Vitals/I&O/Wt Last Vital Signs Temp 98.6 F 06/07/21 04:00 Pulse 93 06/07/21 11:25 Resp 16 06/07/21 11:21 BP 155/104 06/07/21 07:53 Pulse Ox 92 06/07/21 11:21 06/06/21 06/07/21 06/07/21 22:59 06:59 14:59 Intake Total 850 / 2450 1983.75 / 4433.75 400 / 400 Output Total 200 / 800 1400 / 2200 390 / 390 Balance 650 / 1650 583.75 / 2233.75 10 / 10 Weight last 48 hrs Weight 54.601 kg Weight 56.387 kg Weight 70.76 kg Physical Exam Const: COMMON NORMALS: patient oriented x3 HENMT: COMMON NORMALS: normocephalic, atraumatic, hearing grossly normal bilaterally and external ears normal HEAD & SCALP: normocephalic and atraumatic EXTERNAL EAR: Yes external ears normal Eye: COMMON NORMALS: no scleral icterus GENERAL EYE: appearance normal, both eyes and all related structures Chest: COMMONS NORMALS: normal inspection of the chest and normal palpation of entire chest wall CHEST: Yes Symmetrical chest wall rise Resp: COMMON NORMALS: normal respiratory effort, No retractions, No use of accessory muscles and clear to auscultation bilaterally EFFORT & INSPECTION: Yes symmetric chest movement AUSCULTATION: clear to auscultation bilaterally Cardio: COMMON NORMALS: regular rate, regular rhythm, S1 normal heart sound present, S2 normal heart sound present, No gallops present (Cardio), No murmurs present (Cardio), No rub (Cardio) and Peripheral pulses 2+ throughout RATE: regular rate RHYTHM: regular rhythm HEART SOUNDS: S1 normal heart sound present and S2 normal heart sound present PERIPHERAL PULSES: Peripheral pulses 2+ throughout GI: COMMON NORMALS: Normal to inspection, nondistended, normoactive bowel sounds present, Soft to palpation, non-tender, No hepatosplenomegaly present and no masses AUSCULTATION: Yes normoactive bowel sounds PALPATION: Yes Soft to palpation and Yes No hepatosplenomegaly present RECTAL EXAM: Yes deferred Extremity: COMMON NORMALS: no clubbing, cyanosis or edema and no pedal edema Neuro: COMMON NORMALS: patient oriented x3 Data : 06/07/21 03:22 06/07/21 03:22 Micro: Microbiology 06/06/21 12:30 MRSA Culture - Final Nose 06/05/21 20:24 Blood Culture - Preliminary Blood NEGATIVE TO DATE 06/05/21 20:20 Blood Culture - Preliminary Blood NEGATIVE TO DATE 06/05/21 20:23 Bacterial Antigens - Final Urine Kidney 06/06/21 08:20 Legionella Urinary Antigen - Final Unknown Source A&P Assessment and plan (1) Pneumonia: Concern for community acquired pneumonia vs aspiration pneumonia Started on empiric treatment with ceftriaxone and azithromycin DuoNebs, budesonide. Check MRSA swab, sputum culture. Urine Legionella, bacterial antigen negative. In past sputum culture positive for Proteus mirabilis. Follow blood cultures. Oxygen supplementation keeping saturation over 90%. Status: Acute (2) Fall: no intracranial injuries, no trauma related injuries on CT CAP Has a h/o seziures related to withdrawal. Monitor closely for seziure episodes as cause of passing out , though falls may be related to alcohol intoxication Status: Acute (3) Alcohol intoxication: blood alcohol level 245 monitor for withdrawal has a prior h/o withdrawal seizures CIWA protocol, Ativan per protocol Aspiration precautions and seizure precautions Thiamine 100mg po daily for h/o wernicke Korsakoff encephalopathy in 2020 Folic acid and MV daily. Status: Acute (4) Hypertension: continue home dose of metroprolol. BP currently within range Status: Acute Plan Assessment: 60 year old male past medical history of alcoholism, delirium tremens, COPD on baseline 2lpm 02, chronic pain, Wernicke's encephalopathy and Korsakoff syndrome?presenting to ER with c/o falls and with alcohol intoxication. #Pneumonia : ( CAP , V/S Aspiration pneumonia ) CTA chest with contrast: Negative for PE. Small right pleural effusion.Patchy bilateral airspace opacities may reflect pneumonic infiltrates.Bilateral chronic rib fractures. Covid PCR negative MRSA culture: Negative Urine Legionella antigen and bacterial antigen panel negative Blood cultures negative so far. Sputum culture pending Has been on ceftriaxone and azithromycin. Currently saturating well on room air. DuoNebs as needed #Chronic alcohol abuse: Presented with alcohol intoxication on admission: MICHAEL: 245 Currently on CIWA protocol. Continue thiamine folic acid , IV hydration . #History of Warnicke's encephalopathy: Continue thiamine 100 mg p.o. daily #Hypertension: Metoprolol tartrate dose has been increased to 50 mg p.o. twice daily for better heart rate and blood pressure control. Lovenox for DVT prophylaxis. Protonix for PUD prophylaxis. Regular diet. Attestations Medical Necessity Statement*: Patient is to be in hospital for management of pneumonia. Time Spent in Patient Care: Greater than 35 minutes (>than 50% of time spent in counselling and/or direct pt care on unit) . Coding Level of Care Code Acute Printed Products Assembler for [facility] Fwd Exam Comprehensive Diagnoses Pneumonia J18.9 Fall W19.XXXA Alcohol intoxication F10.929 Hypertension I10
[2021-06-07] MEDS: enoxaparin 40 mg/0.4 mL Syringe SUBCUT (15:17)
--- NOTE | 2021-06-07 17:10 | PC.NURSE ---
Report faxed to [facility].
--- NOTE | 2021-06-07 17:45 | PC.NURSE ---
Pt transferred to room 277-2. All belongings with pt.
--- NOTE | 2021-06-07 17:59 | PC.NURSE ---
Patient arrived from ICU at 1755. Report given by BRETT Armstrong. Patient was settled into room eating dinner, vitals stable except for patient being hypertensive at 160/105, MD aware. This has been normal for patient. Will continue care and give report to night nurse.
--- NOTE | 2021-06-07 18:29 | PC.NURSE ---
Shift Note Pt rested in bed most of the shift. He has scored 10-14 on the CIWA, this shift. He complained of dizziness and general just not feeling well. Nicotine patches started. He had another run of tachycardia 130-150's it resolved itself this am. Metoprolol dosage increased from 25 to 50mg starting tonight. He has requested coffee all shift. He has actually ate everything, madelin. if tray is left for at lest an hour. He has left his O2 cannula off for most of the shift, his O2 sats have been 89% or greater. Adequate urine output this shfit. He was just transferred to [facility] floor. Frequent safety and comfort rounds continue. Orders and/or nursing care completed as indicated. Patient monitored for response to intervention and treatment(s). Education provided includes Lovenox, ativan and plan of care. Patient verbalized understanding but does require reinforcement. Will continue to monitor.
--- NOTE | 2021-06-07 19:35 | PC.NURSE ---
Attempted to notify both family members listed in contacts of pt's ptrasnfer to another floor and room. Neither # was available.
[2021-06-07] MEDS: cefTRIAXone 1,000 MG in sodium chloride 0.9% (plus) 50 ML 50 MG IV (20:15)
[2021-06-07] MEDS: metoprolol tartrate 50 mg Tablet PO (20:19)
[2021-06-07 22:31] LABS: Glucose Point of Care 123 mg/dL (70-110)
[2021-06-08] VITALS (10 sets, daily range): BP systolic 152–171; BP diastolic 94–100; PULSE 86–102; RESP 16–18; TEMP 36.5–37.2; O2SAT 91–97
[2021-06-08] MEDS: LORazepam 2 mg/mL INJ 1 mL IVP (03:57)
[2021-06-08] MEDS: metoprolol tartrate 50 mg Tablet PO (04:59)
[2021-06-08] MEDS: ipratropium-albuterol 3 mL Neb INHALATION ×2 (08:29→11:36)
[2021-06-08] MEDS: budesonide 0.5 mg/2 mL Neb INHALATION (08:29)
[2021-06-08] MEDS: pantoprazole DR 40 mg Tablet PO (09:05)
[2021-06-08] MEDS: ferrous gluconate 324 mg Tablet PO (09:05)
[2021-06-08] MEDS: multivitamin therapeutic Tablet 1 TAB PO (09:05)
[2021-06-08] MEDS: sodium chloride 0.9% 1,000 ML 75 ML IV (09:06)
[2021-06-08] MEDS: thiamine 100 mg Tablet PO (09:06)
[2021-06-08] MEDS: nicotine 14 mg Patch 1 PATCH TRANSDERMA (09:06)
[2021-06-08] MEDS: folic acid 1 mg Tablet PO (09:06)
--- NOTE | 2021-06-08 12:16 | PC.CHAP ---
Pastoral Care Encounter/Spiritual Assessment Type of Contact [] Declined animal caretaker supervisor visit [] Patient/Family/Request visit [] Outpatient visit [] Follow-up visit [] Physician referral [] Code/Alert [X] Routine visit [] Staff referral [] Actively dying [X] Patient sleeping [] Family support [] [] Out of room [] Palliative care [] [] Receiving care in room [] Pre-surgical visit [] Trauma [] Long length of stay [] ICU visit [] Other: Relational/Emotional Strength [] Patient feels connected with others/family/visitors/staff [] Distress [] Loneliness/isolation [] Abandonment Spirituality of Patient [] Person of Keisha [] Attends Restorationist of their Keisha [] Believes in Prayer [] Reads Bible or Synagogue materials [] There are Spiritual issues to be addressed Manager Consumer Insights Interventions [] Prayer [] Active listening [] Non-anxious presence [] Spiritual/emotional support [] Crisis/trauma care [] Spiritual counseling [] Bereavement support [] Provided bereavement packet [] Provided Bible/devotional materials [] Provided toy/stuffed animal, coloring book to patient or family member [] Provided Communion [] Anointing/[place] [] Salvation [] Completed spiritual assessment [] Other: Impact on Illness or Injury [] Angry [] Fearful [] Anxious [] Often cries [] Exhaustion [] Unable to work [] Unable to attend hindu [] Unable to walk/stand [] Unable to read [] Unable to drive [] Unable to eat/drink [] Unable to sleep [] Unable to be with family [] Patient intubated [] Other: Summary Time spent with patient
--- NOTE | 2021-06-08 15:46 | P.DS_ITS ---
Discharge Providers Date of Admission: 06/05/21 20:17 Date of Discharge: June 08, 2021 Attending Provider at Admission: Meri Ibanez MD Attending Provider at Discharge: Elliott Burrell MD Diagnoses at Discharge Discharge Diagnosis (1) Pneumonia: Status: Acute (2) Fall: Status: Acute (3) Alcohol intoxication: Status: Acute (4) Hypertension: Status: Acute Reason for Visit Reason for Visit: ETOH/ FALL Hospital Course Hospital Course HPI :Dr. Ibanez 60 year old male past medical history of alcoholism, delirium tremens, COPD on baseline 2lpm 02, chronic pain, Wernicke's encephalopathy and Korsakoff syndrome?presenting to ER today with c/o 2 falls which he related to feeling syncopal. He has been drinking, currently intoxicated, alcohol level 245. He says he struck his ribs with fall today. CT head negative. CT CAP without signs of acute trauma. No PE. Note made of possible pneumonia and small pleural effusion. Patient has a h/o aspiration pneumonia and effusion previosuly also during prolonged admission in 08/2020. Elevated EBC count today at 22. COVID PCR: Negative: Hospital course: Patient was admitted for the management of pneumonia: Community-acquired versus aspiration: Patient was kept on broad-spectrum antibiotics, MRSA PCR was negative , urine Legionella antigen and bacterial antigen panel was negative, blood culture was negative, sputum culture: Few Mixed upper respiratory marianne. Patient responded well to above medical management, at the time of discharge he was afebrile, saturating well on room air, hemodynamically stable.Discharged on levofloxacin p.o. 750 mg daily for additional 7 days to complete 10 days course of antibiotic. Also managed for alcohol intoxication and monitor for withdrawal, CIWA protocol, thiamine , folic acid , IV hydration, counseling was done to avoid alcohol abuse. Patient was discharged on, thiamine , folic acid , multivitamins. For his hypertension he was continued on metoprolol tartrate. Physical Exam Const: COMMON NORMALS: patient oriented x3 HENMT: COMMON NORMALS: normocephalic, atraumatic, hearing grossly normal bilaterally and external ears normal HEAD & SCALP: normocephalic and atraumatic EXTERNAL EAR: Yes external ears normal Eye: COMMON NORMALS: no scleral icterus GENERAL EYE: appearance normal, both eyes and all related structures Chest: COMMONS NORMALS: normal inspection of the chest and normal palpation of entire chest wall CHEST: Yes Symmetrical chest wall rise Resp: COMMON NORMALS: normal respiratory effort, No retractions, No use of accessory muscles and clear to auscultation bilaterally EFFORT & INSPECTION: Yes symmetric chest movement AUSCULTATION: clear to auscultation bilaterally Cardio: COMMON NORMALS: regular rate, regular rhythm, S1 normal heart sound present, S2 normal heart sound present, No gallops present (Cardio), No murmurs present (Cardio), No rub (Cardio) and Peripheral pulses 2+ throughout RATE: regular rate RHYTHM: regular rhythm HEART SOUNDS: S1 normal heart sound present and S2 normal heart sound present PERIPHERAL PULSES: Peripheral pulses 2+ throughout GI: COMMON NORMALS: Normal to inspection, nondistended, normoactive bowel sounds present, Soft to palpation, non-tender, No hepatosplenomegaly present and no masses AUSCULTATION: Yes normoactive bowel sounds PALPATION: Yes Soft to palpation and Yes No hepatosplenomegaly present RECTAL EXAM: Yes deferred Extremity: COMMON NORMALS: no clubbing, cyanosis or edema and no pedal edema Neuro: COMMON NORMALS: patient oriented x3 Discharge Data Studies Completed and Pending Completed Studies During Hospitalization Category Date Time Status CT chest abd pel w con* Urgent Cat Scan 06/05/21 19:[address] head wo con* [id number] Urgent Cat Scan 06/05/21 19:00 Completed Pending at discharge Category Date Time Status Blood Culture Stat Lab 06/05/21 20:24 Results Sputum Culture and Gram Stain Stat Lab 06/07/21 11:20 Results Radiology Impressions Head CT 06/05/21 19:00 IMPRESSION: Negative for intracranial hemorrhage or mass effect Chest/Abdomen/Pelvis CT 06/05/21 19:28 IMPRESSION: 1. Negative for acute traumatic injury to the chest. 2. Small right pleural effusion. 3. Coronary artery atherosclerotic calcifications. 4. Several prominent mediastinal lymph nodes measuring up to 6.7 mm, nonspecific. 5. Emphysematous changes. 6. Patchy bilateral airspace opacities may reflect pneumonic infiltrates. 7. Bilateral chronic rib fractures. IMPRESSION: 1. Negative for acute traumatic injury to the abdomen or pelvis. 2. Prominent fluid throughout the small bowel without dilation may reflect an enteritis. 3. Right kidney cyst, negative for follow-up advised. Laboratory Results WBC 10.9 10^3/uL (4.0-10.0) H 06/07/21 03: RBC 3.10 10^6/uL (4.1-5.3) L 06/07/21 03:22 Hgb 10.6 g/dL (11.7-16.6) L 06/07/21 03:22 Hct 31.8 % (42.0-52.0) L 06/07/21 03: MCV 102.6 fl (80-94) H 06/07/21 03: MCH 34.2 pg (28.0-34.0) H 06/07/21 03: MCHC 33.3 g/dL (30.0-36.0) 06/07/21 03: RDW 13.0 % (12.1-15.1) 06/07/21 03: Plt Count 248 10^3/cmm (130-400) 06/07/21 03: MPV 10.6 fL (7.4-10.4) H 06/07/21 03: Neut % (Auto) 82.0 % 06/07/21 03: Lymph % (Auto) 12.4 % 06/07/21 03: Crawford % (Auto) 4.7 % 06/07/21 03: Eos % (Auto) 0.4 % 06/07/21 03: Baso % (Auto) 0.2 % 06/07/21 03: Neut # (Auto) 8.98 10^3/uL (1.8-7.7) H 06/07/21 03: Lymph # (Auto) 1.4 10^3/uL (0.8-4.8) 06/07/21 03:22 Crawford # (Auto) 0.5 10^3/uL (0.2-0.9) 06/07/21 03: Eos # (Auto) 0.0 10^3/uL (0.0-0.8) 06/07/21 03: Baso # (Auto) 0.0 10^3/uL (0.0-0.1) 06/07/21 03:22 Nucleated RBC % (auto) 0 % 06/07/21 03:22 Nucleated RBCs # 0.0 /100WBC 06/07/21 03:22 Sodium 135 mmol/L (136-145) L 06/07/21 03:22 Potassium 3.6 mmol/L (3.5-5.1) 06/07/21 03:22 Chloride 97 mmol/L (98-107) L 06/07/21 03:22 Carbon Dioxide 25 mmol/L (22-29) 06/07/21 03:22 Anion Gap 16.6 (5-19) 06/07/21 03:22 BUN 7 mg/dL (6-20) 06/07/21 03:22 Creatinine 0.5 mg/dL (0.7-1.2) L 06/07/21 03:22 GFR Calculation 170.8 mL/min (90-130) H 06/07/21 03:22 Glucose 83 mg/dL (65-115) 06/07/21 03:22 POC Glucose 123 mg/dL (70-110) H 06/07/21 18:06 Estimat Average Glucose 85 06/07/21 03:22 Hemoglobin A1c 4.6 % (4.0-6.0) 06/07/21 03:22 Calculated Osmolality 277 mOsm/kg (285-295) L 06/07/21 03:22 Lactic Acid 5.5 mmol/L (0.5-2.2) H* 06/05/21 19:06 Lactic Acid (Sepsis) 2.7 mmol/L (0.5-2.2) H 06/05/21 23:41 Calcium 8.7 mg/dL (8.5-10.5) 06/07/21 03:22 Magnesium 1.2 mg/dL (1.7-2.3) L 06/05/21 19:06 Iron 49 ug/dL (59-158) L 06/06/21 10:41 TIBC 216 mcg/dl 06/06/21 10:41 % Saturation 22.6 % (20-50) 06/06/21 10:41 Unsat Iron Binding 167 ug/dL (112-347) 06/06/21 10:41 Total Bilirubin 0.7 mg/dL (0.15-1.2) 06/07/21 03:22 AST 17 U/L (0-40) 06/07/21 03:22 ALT 7 U/L (0-41) 06/07/21 03:22 Alkaline Phosphatase 82 IU/L (40-130) 06/07/21 03:22 Troponin T Gen 5 ng/L 12 ng/L (0-15) 06/05/21 19:06 Total Protein 5.7 g/dL (6.6-8.7) L 06/07/21 03:22 Albumin 3.4 g/dL (3.5-5.2) L 06/07/21 03:22 Globulin 2.3 g/dL (1.3-4.6) 06/07/21 03:22 Triglycerides 79 mg/dL (0-150) 06/07/21 03:22 Cholesterol 116 mg/dL (0-200) 06/07/21 03:22 LDL Cholesterol, Calc 27 mg/dL (50-129) L 06/07/21 03:22 Total VLDL Cholesterol 16 mg/dL (0-30) 06/07/21 03:22 HDL Cholesterol 73 mg/dL (60-100) 06/07/21 03:22 Cholesterol/HDL Ratio 1.59 mg/dL (1.0-5.00) 06/07/21 03:22 Vitamin B12 485 pg/mL (232-1245) 06/06/21 10:41 Folate > 20.0 ng/mL (4.5-32.2) 06/06/21 10:41 Procalcitonin 0.30 ng/mL (0-0.5) 06/06/21 10:41 Urine Color Straw (Yellow) 06/05/21 20:30 Urine Appearance Clear (CLEAR) 06/05/21 20:30 Urine pH 5 (5-7) 06/05/21 20:30 Ur Specific Odonnell 1.005 (1.005-1.030) 06/05/21 20:30 Urine Protein Neg (Negative) 06/05/21 20:30 Urine Glucose (UA) Norm (Normal) 06/05/21 20:30 Urine Ketones Negative (Negative) 06/05/21 20:30 Urine Blood Neg (Negative) 06/05/21 20:30 Urine Nitrate Negative (Negative) 06/05/21 20:30 Urine Bilirubin Neg (Negative) 06/05/21 20:30 Urine Urobilinogen Neg mg/dL (Negative) 06/05/21 20:30 Ur Leukocyte Esterase Negative (Negative) 06/05/21 20:30 Urine Opiates Screen Negative ng/mL (Negative) 06/05/21 20:23 Ur Barbiturates Screen Negative ng/mL (Negative) 06/05/21 20:23 Ur Phencyclidine Scrn Negative ng/mL (Negative) 06/05/21 20:23 Ur Amphetamines Screen Negative ng/mL (Negative) 06/05/21 20:23 U Benzodiazepines Scrn Negative ng/mL (Negative) 06/05/21 20:23 Urine Cocaine Screen Negative ng/mL (Negative) 06/05/21 20:23 U Marijuana (THC) Screen Negative ng/mL (Negative) 06/05/21 20:23 Ethyl Alcohol 245 mg/dL (0-10) H 06/05/21 19:06 Coronavirus 229E (PCR) Not detected (NOT DETECT) 06/05/21 20:30 SARS-CoV-2 (PCR) Not detected (NOT DETECT) 06/05/21 20:30 Vitals Last Vital Signs Temp 98.1 F 06/08/21 12:00 Pulse 92 06/08/21 12:00 Resp 18 06/08/21 12:00 BP 152/95 06/08/21 12:00 Pulse Ox 97 06/08/21 12:00 Discharge Plan Discharge Patient Disposition: Home Condition: Stable Prescriptions: New Thera 400 mcg Tablet 1 tab PO DAILY 30 Days Qty: 30 0RF Vitamin B-1 (mononitrate) 100 mg Tablet 100 mg PO DAILY 15 Days Qty: 15 0RF folic acid 1 mg Tablet 1 mg PO DAILY 30 Days Qty: 30 2RF levofloxacin 750 mg tablet 750 mg PO DAILY 7 Days Qty: 7 0RF Continued metoprolol tartrate 25 mg tablet 25 mg PO BID Qty: 180 3RF acetaminophen [Tylenol Extra Strength] 500 mg Tablet 1,000 mg PO Q4H PRN (Reason: Pain) 0RF ibuprofen 200 mg Tablet 400 mg PO Q4H PRN (Reason: Pain) 0RF albuterol sulfate [ProAir HFA] 90 mcg/actuation Hfa Aerosol Inhaler 2 puff INHALATION Q6H PRN (Reason: Shortness Of Breath) 0RF albuterol sulfate 90 mcg/actuation HFA aerosol inhaler 2 inh inhalation Q4H PRN (Reason: shortness of breath or wheezing) Qty: 8.5 0RF Discharge Orders: Discharge Order (Routine); Ordered 06/08/21 Ordered By: Elliott Burrell Referrals: Shobha Barros MD [Physician] - 7-10 days (ARCADIO Reaves/ [facility] will call you to set up a new patient appointment.) Patient Instructions: Folic Acid (By mouth), Levofloxacin (By mouth), Abuse of Alcohol (GEN), Pneumonia (GEN), Opioid Safety Discharge Attestations Time Spent in Discharge Care*: greater than 30 min Specific Discharge Activities: educating patient, educating and/or supporting family/caregiver, discussing with case repairer/social workers/dc planners, documenting/other paperwork and evaluating patient/reviewing data Status at Discharge: Cognitive status at discharge: cognitively intact , Behavioral status at discharge: cooperative , Functional status at discharge: independent ambulation , Overall status at discharge: patient is back to baseline Quality Metrics Clinical Quality Measures [ No reported AMI, CVA or VTE this stay] Coding Level of Care Code Acute g [facility] note Diagnoses Pneumonia J18.9 Fall W19.XXXA Alcohol intoxication F10.929 Hypertension I10
== END 2021-06-08 17:08 | disposition home or self-care (01) | DRG 179 ==
LOC: ER 20:25 → ICU 20:32 → MEDSURG 06-07 17:47
PROVIDERS: Student in an Organized Health Care Education/Training Program; Admitting Provider Student in an Organized Health Care Education/Training Program; Emergency Provider Emergency Medicine; Visit Provider Internal Medicine
DX: J69.0 Pneumonitis due to inhalation of food and vomit (principal); F10.229 Alcohol dependence with intoxication, unspecified; Y90.8 Blood alcohol level of 240 mg/100 ml or more; W19.XXXA Unspecified fall, initial encounter; F41.9 Anxiety disorder, unspecified; G89.29 Other chronic pain; J44.9 Chronic obstructive pulmonary disease, unspecified; F32.A Depression, unspecified; I10 Essential (primary) hypertension; F17.210 Nicotine dependence, cigarettes, uncomplicated; Z79.51 Long term (current) use of inhaled steroids
CPT/HCPCS: 36415; 36416; 70450; 71260; 74177; 80053; 80061; 80306; 80307; 81003; 82607; 82746; 82962; 83036; 83540; 83550; 83605; 83735; 84145; 84484; 85025; 86403; 87040; 87070; 87205; 87449; 87635; 87641; 93005; 94640; 96365; 96367; 96372; 96375; 99285; J0456; J0696; J1650; J2060; J2270; J2405; J3411; J3490; J7030; J7050; J7626; Q0144; Q9967

== ENCOUNTER 2021-06-15 00:58 | Emergency (ER) | payer MEDICAID, SELFPAY ==
[2021-06-15] VITALS (8 sets, daily range): BP systolic 140–162; BP diastolic 84–97; PULSE 90–116; RESP 16–20; TEMP 37.1; O2SAT 94–99; BMI 19.6
--- NOTE | 2021-06-15 01:22 | XRR_ITS ---
PROCEDURE INFORMATION: Exam: XR Chest Exam date and time: 06/15/2021 1:22 AM Age: 60 years old Clinical indication: Shortness of breath; Patient HX: C/O SOB. Recent pneumonia. TECHNIQUE: Imaging protocol: XR of the chest. Views: 1 view. COMPARISON: CT chest abd pel w con* 06/05/2021 7:54 PM FINDINGS: Lungs: Emphysematous lung changes. Negative for space consolidation. Pleural spaces: Unremarkable. No pleural effusion. No pneumothorax. Heart/Mediastinum: Unremarkable. No cardiomegaly. Bones/joints: Several old rib fractures. XR/XR chest 1V portable [id number] IMPRESSION: No focal acute pulmonary disease identified.
--- NOTE | 2021-06-15 01:23 | ECG_ITS ---
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 [email or web address]
[2021-06-15 01:30] LABS: Basophils % 0.5 %; Eosinophils # 0.1 10^3/uL (0.0-0.8); Eosinophils % 1.9 %; Hematocrit 36.1 % (42.0-52.0); Hemoglobin 11.8 g/dL (11.7-16.6); Lymphocytes # 1.7 10^3/uL (0.8-4.8); Lymphocytes % 29.7 %; Mean Corpuscular HGB Conc 32.7 g/dL (30.0-36.0); Mean Corpuscular Hemoglobin 34.4 pg (28.0-34.0); Mean Corpuscular Volume 105.2 fl (80-94); Mean Platelet Volume 9.2 fL (7.4-10.4); Monocytes # 0.3 10^3/uL (0.2-0.9); Monocytes % 5.9 %; Neutrophils # 3.53 10^3/uL (1.8-7.7); Neutrophils % 61.7 %; Nucleated Red Blood Cells % 0 %; Platelet Count 411 10^3/cmm (130-400); Red Blood Count 3.43 10^6/uL (4.1-5.3); Red Cell Distribution Width 13.9 % (12.1-15.1); White Blood Count 5.7 10^3/uL (4.0-10.0)
[2021-06-15 01:53] LABS: Troponin(5th) Baseline 15 ng/L (0-15)
[2021-06-15 02:02] LABS: Alanine Aminotransferase 10 U/L (0-41); Albumin Level 4.1 g/dL (3.5-5.2); Alcohol Level 166 mg/dL (0-10); Alkaline Phosphatase 84 IU/L (40-130); Anion Gap 22.4 (5-19); Aspartate Amino Transferase 24 U/L (0-40); Blood Urea Nitrogen 8 mg/dL (6-20); Calcium 8.1 mg/dL (8.5-10.5); Carbon Dioxide 25 mmol/L (22-29); Chloride 98 mmol/L (98-107); Glomerular Filtration Rate 170.8 mL/min (90-130); Glucose 77 mg/dL (65-115); NT Pro B Type Natriuretic Pept 177 pg/mL (0-125); Osmolality Calculated 291 mOsm/kg (285-295); Potassium 3.4 mmol/L (3.5-5.1); Sodium 142 mmol/L (136-145); Total Bilirubin 0.4 mg/dL (0.15-1.2); Total Protein 7.1 g/dL (6.6-8.7)
[2021-06-15] MEDS: ondansetron 2 mg/ML SDV 2 mL 4 MG IVP (02:02)
[2021-06-15] MEDS: morphine 4 mg/mL SDV 1 mL IVP (02:04)
[2021-06-15 02:23] LABS: Lactic Sepsis W/Reflex 5.6 mmol/L (0.5-2.2)
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
[2021-06-15 03:15] LABS: ABG PCO2 42.5 mmHg (35-45); Arterial Blood Gas Hematocrit 35.1 % (42-52); Base Excess ABG 1.2 mmol/L (-2.0-2.0); Blood Gas Allen Test Pos; Blood Gas Sample Type Arterial; Carboxyhemoglobin 5.2 %THgb (0.4-20.1); HCO3 ABG 26.2 mmol/L (22-26); HGB O2 Sat 89.3 % (95-100); Methemoglobin 0.9 % (0.4-1.5); PO2 ABG 77.1 mmHg (80.0-100.0); Total Hemoglobin 11.4 g/dL (14-18)
[2021-06-15 03:16] LABS: Blood Gas Sample Site Radial, right; Oxygen Device NC
[2021-06-15] MEDS: ipratropium-albuterol 3 mL Neb INHALATION (03:28)
[2021-06-15 03:35] LABS: Reflex Lactate Order REFLEX LACTIC ORDERD
[2021-06-15] MEDS: sodium chloride 0.9% 1,000 ML 999 ML IV ×2 (04:33→05:20)
[2021-06-15 05:02] LABS: Troponin 5 2HR 14.61 ng/L (0-15)
[2021-06-15] MEDS: ketorolac 30 mg/mL INJ 15 MG IVP (05:24)
[2021-06-15] MEDS: LORazepam 2 mg/mL INJ 1 mL 1 MG IVP (06:12)
--- NOTE | 2021-06-15 07:14 | PC.NURSE ---
PROVIDED PT WITH WATER AND COFFEE PER PT REQUEST.
--- NOTE | 2021-06-15 07:21 | PC.NURSE ---
ATTEMPTED TO CALL [place] [employer] AT [phone] AND [phone]. NO ANSWER INFORMED PT.
== END 2021-06-15 07:28 | disposition home or self-care (01) ==
PROVIDERS: Emergency Provider Emergency Medicine
DX: J44.1 Chronic obstructive pulmonary disease with (acute) exacerbation (principal); F10.129 Alcohol abuse with intoxication, unspecified; Y90.6 Blood alcohol level of 120-199 mg/100 ml; F17.210 Nicotine dependence, cigarettes, uncomplicated
CPT/HCPCS: 36415; 36600; 71045; 80053; 80307; 82805; 83605; 83880; 84484; 85025; 87040; 93005; 94640; 96361; 96374; 96375; 99284; J1885; J2060; J2270; J2405; J2930; J7030

== ENCOUNTER 2021-08-27 21:15 | Emergency (ER) | payer MEDICAID, SELFPAY ==
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
[2021-08-27 21:27] VITALS: BMI 19.8
[2021-08-27 21:35] VITALS: BP 108/72; PULSE 82; RESP 18; O2SAT 93
--- NOTE | 2021-08-27 21:49 | ECG_ITS ---
[facility] Test Date: 2021-08-27 Pat Name: Vasyl Reis Department: Room: Gender: Male Head Setter: : 1960 Requested By: Aaron Mcleod Order Number: [id number] Velez MD: Hermann Nava M.D. Measurements Intervals [place] Rate: 74 P: 79 IN: 215 QRS: 79 QRSD: 93 T: 82 QT: 413 QTc: 458 Interpretive Statements SINUS RHYTHM WITH FIRST DEGREE AV BLOCK Compared to ECG 06/15/2021 01:17:55 First degree AV block now present Sinus tachycardia no longer present Myocardial infarct finding no longer present Electronically Signed On 08-27-2021 22:00:31 CDT by Hermann Nava M.D. [email or web address] [facility].[employer]/store/OM/[id number]
--- NOTE | 2021-08-27 21:49 | XRR_ITS ---
PROCEDURE INFORMATION: Exam: XR Chest Exam date and time: 08/27/2021 10:23 PM Age: 60 years old Clinical indication: Shortness of breath; Additional info: SOB, wheezing TECHNIQUE: Imaging protocol: XR of the chest. Views: 1 view. COMPARISON: CR (CHEST, ) 06/15/2021 1:27 AM FINDINGS: Lungs: Emphysematous changes. Pleural spaces: Unremarkable. No pleural effusion. No pneumothorax. Heart/Mediastinum: Unremarkable. No cardiomegaly. Bones/joints: Multiple right posterolateral chronic healed rib fractures. XR/XR chest 1V portable [id number] IMPRESSION: Emphysematous changes, negative for infiltrate.
[2021-08-27] MEDS: ipratropium-albuterol 3 mL Neb INHALATION (21:58)
[2021-08-27 22:00] VITALS: PULSE 88; RESP 14; O2SAT 96
[2021-08-27 22:05] VITALS: PULSE 83
[2021-08-27 22:26] LABS: Basophils % 0.4 %; Eosinophils # 0.1 10^3/uL (0.0-0.8); Eosinophils % 1.2 %; Hematocrit 34.8 % (42.0-52.0); Hemoglobin 11.9 g/dL (11.7-16.6); Lymphocytes # 2.2 10^3/uL (0.8-4.8); Lymphocytes % 38.9 %; Mean Corpuscular HGB Conc 34.2 g/dL (30.0-36.0); Mean Corpuscular Hemoglobin 34.3 pg (28.0-34.0); Mean Corpuscular Volume 100.3 fl (80-94); Mean Platelet Volume 9.7 fL (7.4-10.4); Monocytes # 0.5 10^3/uL (0.2-0.9); Monocytes % 9.3 %; Neutrophils # 2.81 10^3/uL (1.8-7.7); Nucleated Red Blood Cells % 0 %; Platelet Count 173 10^3/cmm (130-400); Red Blood Count 3.47 10^6/uL (4.1-5.3); Red Cell Distribution Width 14.5 % (12.1-15.1); White Blood Count 5.6 10^3/uL (4.0-10.0)
[2021-08-27 22:45] LABS: Alanine Aminotransferase 15 U/L (0-41); Albumin Level 4.1 g/dL (3.5-5.2); Alkaline Phosphatase 80 IU/L (40-130); Anion Gap 20.2 (5-19); Aspartate Amino Transferase 42 U/L (0-40); Blood Urea Nitrogen 14 mg/dL (6-20); Calcium 8.1 mg/dL (8.5-10.5); Carbon Dioxide 29 mmol/L (22-29); Chloride 94 mmol/L (98-107); Globulin 2.7 g/dL (1.3-4.6); Glomerular Filtration Rate 138.4 mL/min (90-130); Glucose 95 mg/dL (65-115); Osmolality Calculated 290 mOsm/kg (285-295); Potassium 3.2 mmol/L (3.5-5.1); Sodium 140 mmol/L (136-145); Total Bilirubin 0.4 mg/dL (0.15-1.2); Total Protein 6.8 g/dL (6.6-8.7)
[2021-08-27 23:05] VITALS: BP 119/84; PULSE 94; RESP 20; O2SAT 93
[2021-08-27] MEDS: potassium chloride ER 20 mEq Tablet 40 MEQ PO (23:09)
[2021-08-28 00:12] VITALS: PULSE 95; RESP 17; O2SAT 92
[2021-08-28 00:20] VITALS: PULSE 84
[2021-08-28 00:44] VITALS: BP 120/70; PULSE 95; RESP 22; O2SAT 88
[2021-08-28] MEDS: doxycycline 100 mg Tablet PO (00:47)
[2021-08-28 02:21] VITALS: BP 110/59; PULSE 98; RESP 20; O2SAT 89
[2021-08-28 02:30] VITALS: BP 109/68; PULSE 89; RESP 20; O2SAT 88
[2021-08-28] MEDS: ketorolac 30 mg/mL INJ 15 MG IVP (02:34)
[2021-08-28] MEDS: acetaminophen 500 mg Tablet 1000 MG PO (02:34)
[2021-08-28 03:15] VITALS: BP 109/68; PULSE 89; RESP 20; O2SAT 88
== END 2021-08-28 03:18 | disposition home or self-care (01) ==
PROVIDERS: Emergency Provider Emergency Medicine
DX: J44.1 Chronic obstructive pulmonary disease with (acute) exacerbation (principal); R53.1 Weakness; I10 Essential (primary) hypertension; F17.210 Nicotine dependence, cigarettes, uncomplicated
CPT/HCPCS: 71045; 80053; 85025; 93005; 94640; 96374; 96375; 99284; J1885; J2930; J7611

== ENCOUNTER 2021-11-03 14:34 | Inpatient (IN) | payer MEDICAID, SELFPAY ==
[2021-11-03] VITALS (11 sets, daily range): BP systolic 96–135; BP diastolic 45–81; PULSE 66–96; RESP 16–18; TEMP 36.3–36.9; O2SAT 88–99; BMI 2929.1; BMI 17.2
--- NOTE | 2021-11-03 14:39 | XRR_ITS ---
PROCEDURE INFORMATION: Exam: XR Chest Exam date and time: 11/03/2021 3:11 PM Age: 60 years old Clinical indication: Shortness of breath; Additional info: SOB TECHNIQUE: Imaging protocol: Radiologic exam of the chest. Views: 1 view. COMPARISON: CR XR chest 1V portable [id number] 08/27/2021 10:23 PM FINDINGS: Lungs: The lungs are clear. Pleural spaces: Unremarkable. No pleural effusion. No pneumothorax. Heart/Mediastinum: Unremarkable. No cardiomegaly. Bones/joints: Several bilateral rib fractures are noted. No acute fracture is seen. XR/XR chest 1V portable [id number] IMPRESSION: No acute cardiopulmonary abnormality.
--- NOTE | 2021-11-03 14:40 | ECG_ITS ---
[facility] Test Date: 2021-11-03 Pat Name: Vasyl Reis Department: Room: Gender: Male Zmt Operator: : 1960 Requested By: Terry Rajput Order Number: [id number] Agustin MD: Karen Villarreal M.D. Measurements Intervals [place] Rate: 77 P: 78 WV: 189 QRS: 70 QRSD: 79 T: 84 QT: 410 QTc: 464 Interpretive Statements SINUS RHYTHM Compared to ECG 08/27/2021 21:58:56 First degree AV block no longer present Electronically Signed On 11-03-2021 21:00:30 CDT by Karen Villarreal M.D. [id number]
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
[2021-11-03] MEDS: ipratropium-albuterol 3 mL Neb INHALATION (14:56)
[2021-11-03 15:13] LABS: ABG PCO2 46.8 mmHg (35-45); ABG PH Result 7.38 (7.35-7.45); Alveolar-Arterial Oxygen Gradi 11.1 mmHg (5-10); Arterial Blood Gas Hematocrit 38.9 % (42-52); Blood Gas Operator Identificat ED; Blood Gas Sample Site Brachial, left; Blood Gas Sample Type Arterial; Carboxyhemoglobin 5.5 %THgb (0.4-20.1); HCO3 ABG 27.7 mmol/L (22-26); HGB O2 Sat 92.3 % (95-100); Ionized Calcium Level - ABG 1.1 mmol/L (1.1-1.4); Methemoglobin 0.9 % (0.4-1.5); Oxygen Device NC; Oxygen Saturation ABG 98.6; Potassium Level - ABG 3.5 mmol/L (3.5-5.0); Total Hemoglobin 12.7 g/dL (14-18)
[2021-11-03 15:22] LABS: Basophils % 0.6 %; Eosinophils # 0.2 10^3/uL (0.0-0.8); Eosinophils % 3.5 %; Hematocrit 38.6 % (42.0-52.0); Hemoglobin 12.7 g/dL (11.7-16.6); Lymphocytes # 2.2 10^3/uL (0.8-4.8); Lymphocytes % 34.6 %; Mean Corpuscular HGB Conc 32.9 g/dL (30.0-36.0); Mean Corpuscular Hemoglobin 33.3 pg (28.0-34.0); Mean Corpuscular Volume 101.3 fl (80-94); Mean Platelet Volume 9.2 fL (7.4-10.4); Monocytes # 0.6 10^3/uL (0.2-0.9); Neutrophils # 3.28 10^3/uL (1.8-7.7); Neutrophils % 52.1 %; Nucleated Red Blood Cells % 0 %; Platelet Count 381 10^3/cmm (130-400); Red Blood Count 3.81 10^6/uL (4.1-5.3); Red Cell Distribution Width 14.9 % (12.1-15.1); White Blood Count 6.3 10^3/uL (4.0-10.0)
[2021-11-03 15:37] LABS: D Dimer 0.66 ug/mIFEU (0-0.59)
--- NOTE | 2021-11-03 15:39 | CTR_ITS ---
PROCEDURE INFORMATION: Exam: CTA Chest With Contrast Exam date and time: 11/03/2021 4:23 PM Age: 60 years old Clinical indication: Shortness of breath; Patient HX: HX of copd C/O SOB; Additional info: Pe TECHNIQUE: Imaging protocol: Computed tomographic angiography of the chest with contrast. 3D rendering (Not supervised by radiologist): MIP and/or 3D reconstructed images were created by the technologist. Radiation optimization: All CT scans at this facility use at least one of these dose optimization techniques: automated exposure control; mA and/or kV adjustment per patient size (includes targeted exams where dose is matched to clinical indication); or iterative reconstruction. Contrast material: OMNI 350; Contrast volume: 82 ml; Contrast route: INTRAVENOUS (IV); COMPARISON: CT angio chest w abd pel w con 11/30/2020 3:46 PM RADIATION DOSE METRICS: Total DLP (mGy-cm): 515.61 FINDINGS: Pulmonary arteries: No pulmonary embolus is seen. Aorta: Unremarkable. No aortic aneurysm. No aortic dissection. Lungs: Pulmonary emphysema changes are noted. A calcified granuloma is present in the right lower lobe. Mild scarring is present in the right middle and left lower lobes. Pleural spaces: Unremarkable. No pneumothorax. No pleural effusion. Heart: The heart is normal in size. Left coronary artery calcifications are appreciated. Lymph nodes: Unremarkable. No enlarged lymph nodes. Gallbladder and bile ducts: Small gallstones are present in the gallbladder. No biliary ductal dilatation is seen. Bones/joints: No acute fracture. Soft tissues: Unremarkable. CT/CT angio chest PE protcl [id number] IMPRESSION: 1. No pulmonary embolus is seen. 2. Pulmonary emphysema. 3. Coronary artery disease. 4. Cholelithiasis.
[2021-11-03 15:46] LABS: Troponin(5th) Baseline 17 ng/L (0-15)
[2021-11-03 15:54] LABS: Alanine Aminotransferase 9 U/L (0-41); Alkaline Phosphatase 86 IU/L (40-130); Anion Gap 19.5 (5-19); Aspartate Amino Transferase 21 U/L (0-40); Blood Urea Nitrogen 14 mg/dL (6-20); Calcium 8.2 mg/dL (8.5-10.5); Carbon Dioxide 25 mmol/L (22-29); Chloride 105 mmol/L (98-107); Globulin 2.4 g/dL (1.3-4.6); Glomerular Filtration Rate 99.3 mL/min (90-130); Glucose 146 mg/dL (65-115); NT Pro B Type Natriuretic Pept 246 pg/mL (0-125); Osmolality Calculated 305 mOsm/kg (285-295); Potassium 3.5 mmol/L (3.5-5.1); Sodium 146 mmol/L (136-145); Total Bilirubin 0.2 mg/dL (0.15-1.2); Total Protein 6.4 g/dL (6.6-8.7)
[2021-11-03 16:15] LABS: SARS Covid-2 Antigen Negative (Negative)
[2021-11-03] MEDS: iohexol 350 mg/mL 100 mL Btl IV (16:28)
--- NOTE | 2021-11-03 16:40 | ECG_ITS ---
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 Measurements Intervals [place] Rate: 78 P: 77 WV: 193 QRS: 65 QRSD: 83 T: 88 QT: 415 QTc: 475 Interpretive Statements SINUS RHYTHM Compared to ECG 11/03/2021 15:00:38 No significant changes Electronically Signed On 11-03-2021 21:02:38 CDT by Karen Villarreal M.D. [email or web address].[employer]/store/[id number]
[2021-11-03 18:20] LABS: Troponin 5 2HR 16.14 ng/L (0-15)
[2021-11-03 18:34] LABS: Troponin 5 2HR Delta -0.86 ABS# (0-10)
--- NOTE | 2021-11-03 20:40 | ECG_ITS ---
[facility] Test Date: 2021-11-04 Pat Name: Vasyl Reis Department: Room: 279 Gender: Male International Marketing Specialist: : 1960 Requested By: Terry Rajput Order Number: [id number] Agustin MD: Karen Villarreal M.D. Measurements Intervals [place] Rate: 82 P: 81 MD: 185 QRS: 83 QRSD: 75 T: 87 QT: 377 QTc: 442 Interpretive Statements SINUS RHYTHM POSSIBLE ANTERIOR MYOCARDIAL INFARCTION , OF INDETERMINATE AGE [30 ms Q WAVE IN V3/V4, OR R < 0.2 mV IN V4] Compared to ECG 11/03/2021 16:38:40 Myocardial infarct finding now present Electronically Signed On 11-04-2021 21:01:38 CDT by Karen Villarreal M.D. [email or web address]/store/[id number]
--- NOTE | 2021-11-03 20:41 | PC.NURSE ---
report to BRETT Davenport for room 279
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
[2021-11-03 21:16] LABS: Troponin 5 6HR 10.22 ng/L (0-15)
[2021-11-03 21:27] LABS: Troponin 5 6HR Delta -6.78 ng/L (0-12)
[2021-11-03 22:10] LABS: Lipase 22 U/L (13-60)
[2021-11-03] MEDS: lactated ringers 1,000 ML 30 ML IV (22:56)
[2021-11-03] MEDS: acetaminophen 325 mg Tablet 650 MG PO (23:03)
[2021-11-04] VITALS (15 sets, daily range): BP systolic 143–178; BP diastolic 55–109; PULSE 60–110; RESP 16–20; TEMP 36.4–36.6; O2SAT 92–99
[2021-11-04] MEDS: ipratropium-albuterol 3 mL Neb INHALATION ×4 (03:19→20:19)
[2021-11-04 04:49] LABS: Hematocrit 41.9 % (42.0-52.0); Hemoglobin 13.6 g/dL (11.7-16.6); Lymphocytes # 0.6 10^3/uL (0.8-4.8); Lymphocytes % 18.7 %; Mean Corpuscular HGB Conc 32.5 g/dL (30.0-36.0); Mean Corpuscular Hemoglobin 33.1 pg (28.0-34.0); Mean Corpuscular Volume 101.9 fl (80-94); Mean Platelet Volume 9.5 fL (7.4-10.4); Monocytes % 1.3 %; Neutrophils # 2.43 10^3/uL (1.8-7.7); Neutrophils % 79.7 %; Nucleated Red Blood Cells % 0 %; Platelet Count 366 10^3/cmm (130-400); Red Blood Count 4.11 10^6/uL (4.1-5.3); Red Cell Distribution Width 14.6 % (12.1-15.1); White Blood Count 3.1 10^3/uL (4.0-10.0)
[2021-11-04 05:13] LABS: Alanine Aminotransferase 10 U/L (0-41); Albumin Level 4.4 g/dL (3.5-5.2); Alkaline Phosphatase 105 IU/L (40-130); Anion Gap 17.9 (5-19); Aspartate Amino Transferase 25 U/L (0-40); Blood Urea Nitrogen 15 mg/dL (6-20); Calcium 9.3 mg/dL (8.5-10.5); Carbon Dioxide 27 mmol/L (22-29); Chloride 99 mmol/L (98-107); Glomerular Filtration Rate 170.8 mL/min (90-130); Glucose 170 mg/dL (65-115); Magnesium 1.7 mg/dL (1.7-2.3); Osmolality Calculated 295 mOsm/kg (285-295); Potassium 3.9 mmol/L (3.5-5.1); Sodium 140 mmol/L (136-145); Total Bilirubin 0.2 mg/dL (0.15-1.2); Total Protein 7.4 g/dL (6.6-8.7)
[2021-11-04 05:54] LABS: Amphetamines Screen Urine Negative (Negative); Barbiturates Screen Urine Negative (Negative); Benzodiazepines Screen Urine Negative (Negative); Cocaine Screen Urine Negative (Negative); Opiate Screen Urine Negative (Negative); PCP Screen Urine Negative (Negative); THC Screen Urine Negative (Negative)
--- NOTE | 2021-11-04 08:32 | ECG_ITS ---
[facility] Test Date: 2021-11-04 Pat Name: Vasyl Reis Department: Room: 279 Gender: Male Psychologist Engineering: : 1960 Requested By: Aspen Mijares Order Number: [id number] Agustin MD: Karen Villarreal M.D. Measurements Intervals [place] Rate: 74 P: 81 NM: 170 QRS: 80 QRSD: 82 T: 83 QT: 386 QTc: 430 Interpretive Statements SINUS RHYTHM POSSIBLE ANTERIOR MYOCARDIAL INFARCTION , OF INDETERMINATE AGE [30 ms Q WAVE IN V3/V4, OR R < 0.2 mV IN V4] INTERPRETATION BASED ON A DEFAULT AGE OF 40 YEARS Compared to ECG 11/04/2021 00:45:42 No significant changes Electronically Signed On 11-04-2021 21:04:03 CDT by Karen Villarreal M.D. [email or web address]
[2021-11-04] MEDS: thiamine 100 mg Tablet PO (09:06)
[2021-11-04] MEDS: folic acid 1 mg Tablet PO (09:06)
[2021-11-04] MEDS: pantoprazole DR 40 mg Tablet PO (09:06)
[2021-11-04] MEDS: multivitamin therapeutic Tablet 1 TAB PO (09:06)
[2021-11-04] MEDS: nicotine 21 mg Patch 1 PATCH TRANSDERMA (09:06)
[2021-11-04] MEDS: LORazepam 2 mg Tablet PO ×3 (09:10→23:19)
[2021-11-04] MEDS: acetaminophen 325 mg Tablet 650 MG PO ×2 (09:10→23:20)
[2021-11-04 09:26] LABS: Vitamin B12 480 pg/mL (232-1245)
--- NOTE | 2021-11-04 09:56 | PC.CHAP ---
Pastoral Care Encounter/Spiritual Assessment Type of Contact [] Declined board mixer tender visit [] Patient/Family/Request visit [] Outpatient visit [] Follow-up visit [] Physician referral [] Code/Alert [x] Routine visit [] Staff referral [] Actively dying [x] Patient sleeping [] Family support [] [] Out of room [] Palliative care [] [] Receiving care in room [] Pre-surgical visit [] Trauma [] Long length of stay [] ICU visit [] Other: Relational/Emotional Strength [] Patient feels connected with others/family/visitors/staff [] Distress [] Loneliness/isolation [] Abandonment Spirituality of Patient [] Person of Keisha [] Attends Yazidism of their Keisha [] Believes in Prayer [] Reads Bible or Mandaeism materials [] There are Spiritual issues to be addressed Manager Instrumentation Interventions [] Prayer [] Active listening [] Non-anxious presence [] Spiritual/emotional support [] Crisis/trauma care [] Spiritual counseling [] Bereavement support [] Provided bereavement packet [] Provided Bible/devotional materials [] Provided toy/stuffed animal, coloring book to patient or family member [] Provided Communion [] Anointing/Brant [] Salvation [] Completed spiritual assessment [] Other: Impact on Illness or Injury [] Angry [] Fearful [] Anxious [] Often cries [] Exhaustion [] Unable to work [] Unable to attend quaker [] Unable to walk/stand [] Unable to read [] Unable to drive [] Unable to eat/drink [] Unable to sleep [] Unable to be with family [] Patient intubated [] Other: Summary Time spent with patient
--- NOTE | 2021-11-04 10:27 | USCV_ITS ---
Vasyl Reis Age: 60 Gender: M : 1960 Exam Date: 11/04/2021 14:37 Ordering Phys: Aspen Mijares MD Technologist: Josh Lugo [place] [facility]: Chest pain BP: 168 / 109 HR: 79 Rhythm: Sinus Technical Quality: Very poor MEASUREMENTS (Male / Female) Normal Values 2D ECHO LV Diastolic Diameter PLAX 2.8 cm 4.2 - 5.9 / 3.9 - 5.3 cm LV Systolic Diameter PLAX 2.1 cm IVS Diastolic Thickness 1.0 cm 0.6 - 1.0 / 0.6 - 0.9 cm IVS Systolic Thickness 1.6 cm LVPW Diastolic Thickness 1.1 cm 0.6 - 1.0 / 0.6 - 0.9 cm LVPW Systolic Thickness 1.8 cm LVOT Diameter 2.0 cm LV Ejection Fraction 2D Teich 50.2 % LV Ejection Fraction MOD 2C 81.5 % LV Ejection Fraction 2C AL 81.4 % LA Diameter 3.3 cm Aorta at Sinotubular Diameter 2.9 cm IVC Diameter 0.9 cm M-MODE MV E Point Septal Separation 0.8 cm DOPPLER AV Peak Velocity 113.0 cm/s LVOT Peak Velocity 86.0 cm/s AV Area Cont Eq vti 2.4 cm squared AV Area Cont Eq pk 2.4 cm squared TR Peak Velocity 179.8 cm/s TR Peak Gradient 12.9 mmHg TV Peak E Velocity 103.0 cm/s Right Atrial Pressure 3.0 mmHg Pulmonary Artery Systolic Pressu 15.9 mmHg PV Peak Velocity 115.0 cm/s FINDINGS Left Ventricle Normal left ventricular size and systolic function. Left ventricular systolic function grossly estimated at 60-65%. Although no diagnostic regional wall motion abnormality could be identified, this possibility cannot be completely excluded based on this study. Right Ventricle Grossly normal right ventricular size and systolic function. Right ventricular systolic pressure 15.9 mmHg. Right Atrium Right atrium not well visualized. Normal right atrial size. Left Atrium Left atrium not well visualized. Probably normal left atrial size. Mitral Valve Thickened mitral valve. No mitral valve stenosis. Trace mitral valve regurgitation. Aortic Valve Aortic valve not well visualized. No aortic valve stenosis. Tricuspid Valve Structurally normal tricuspid valve. Trace tricuspid valve regurgitation. Pulmonic Valve Pulmonic valve not well visualized. Pericardium No pericardial effusion. Aorta Aorta not well visualized. IVC Normal sized inferior vena cava. CONCLUSIONS 1. This is a technically difficult study with no parasternal windows. 2. Normal left ventricular size and systolic function. Left ventricular systolic function grossly estimated at 60-65%. Although no diagnostic regional wall motion abnormality could be identified, this possibility cannot be completely excluded based on this study. 3. No change when compared to study dated 09/02/2020. Yoko Restrepo MD (Electronically Signed) Final Date: 05 November 2021 07:51 S
[2021-11-04] MEDS: ketorolac 30 mg/mL INJ 15 MG IVP (11:04)
[2021-11-04] MEDS: lidocaine 2% viscous 15 ML, aluminum-mag hydrox-simethicon 30 ML, sucralfate oral liq 1 GM PO (11:04)
[2021-11-04] MEDS: metoprolol tartrate 25 mg Tablet PO (11:06)
--- NOTE | 2021-11-04 13:03 | P.PN_ITS ---
Subjective Subjective: This morning patient was complaining of reproducible pleuritic chest pain EKG was reviewed, troponin downtrending He I have given him anti-inflammatory ketorolac 1 dose Also given him 1 dose of GI cocktail He is hemodynamically stable He is complaining of pain every time he is coughing He does not use oxygen at home He does not want to give up his Social Security check in order to go to group home Is very wobbly, his gait is ataxic, drunken gait Vitals/I&O/Wt Last Vital Signs Temp 97.8 F 11/04/21 04:00 Pulse 74 11/04/21 08:28 Resp 20 H 11/04/21 08:28 BP 172/94 11/04/21 08:00 Pulse Ox 96 11/04/21 08:28 11/03/21 11/04/21 11/04/21 22:59 06:59 14:59 Intake Total 480 / 480 240 / 720 100 / 100 Output Total 600 / 600 400 / 1000 Balance -120 / -120 -160 / -280 100 / 100 Weight last 48 hrs Weight 59.109 kg Weight 68.039 kg Physical Exam Narrative: Malnourished male Drunken gait Dehydrated Active tremors CIWA less than 8 Abdomen soft S1, S2 sinus tachycardia Hypertensive Nonfocal neuro exam Saturating well on 3 L nasal cannula Afebrile Data : 11/04/21 04:25 11/04/21 04:25 A&P Assessment and plan (1) Falls: Status: Acute (2) Unsteady gait: Status: Acute (3) Hypoxia: Status: Acute (4) Acute exacerbation of chronic obstructive pulmonary disease: Status: Acute (5) Tick-borne disease: Status: Acute (6) Claudication: Status: Acute (7) Shoulder pain, bilateral: Status: Acute (8) Wernicke encephalopathy: Status: Acute (9) Physical deconditioning: Status: Acute (10) Alcoholism: Status: Acute (11) Anemia: Status: Acute (12) COPD (chronic obstructive pulmonary disease): Status: Acute (13) Hypoxia: Status: Acute Plan Acute COPD exacerbation Active alcohol abuse Hypertensive Pleuritic chest pain Drunken gait Warnicke encephalopathy CIWA less than 8 , Erythema migrans Plan for today DuoNeb for COPD exacerbation, he will need oxygen evaluation before discharge No active wheezing I will add ceftriaxone to his doxycycline regimen Taper down steroid regimen For his tick bite continue doxycycline no active signs of heart block, facial palsy or meningitis no active joint pain Pleuritic chest pain costochondritis in nature Troponin trending down EKG showing biphasic T waves Will request echo to see wall motion abnormality No need of initiation of ACS protocol Anti-inflammatory 1 dose given Alcohol abuse thiamine, folic acid, CIWA protocol Patient does not want to go to group home does not want to give up his check, he is very unsteady on his gait, check B12, will reevaluate Full code Cardiac diet No severe electrolyte imbalance DVT prophylaxis with Lovenox to SCDs Attestations Medical Necessity Statement*: Continue monitor 1 more day Time Spent in Patient Care: 30 Coding Level of Care Code Acute Glass Mechanic for g Fwd Diagnoses Falls W19.XXXA Unsteady gait R26.81 Hypoxia R09.02 Acute exacerbation of chronic obstructive pulmonary disease J44.1 Tick-borne disease B88.2 Claudication I73.9 Shoulder pain, bilateral M25.511; M25.512 Wernicke encephalopathy E51.2 Physical deconditioning R53.81 Alcoholism F10.20 Anemia D64.9 COPD (chronic obstructive pulmonary disease) J44.9 Hypoxia R09.02
[2021-11-04] MEDS: enoxaparin 40 mg/0.4 mL Syringe SUBCUT (14:31)
[2021-11-04] MEDS: cefTRIAXone 1,000 MG in sodium chloride 0.9% (plus) 50 ML 100 MG IV (14:31)
[2021-11-04] MEDS: lactated ringers 1,000 ML 30 ML IV (23:01)
[2021-11-05] VITALS (14 sets, daily range): BP systolic 142–163; BP diastolic 80–97; PULSE 60–102; RESP 16–20; TEMP 36.3–36.8; O2SAT 95–100
[2021-11-05] MEDS: LORazepam 2 mg Tablet PO ×3 (04:35→15:57)
[2021-11-05] MEDS: ipratropium-albuterol 3 mL Neb INHALATION ×3 (09:08→20:38)
[2021-11-05] MEDS: thiamine 100 mg Tablet PO (09:43)
[2021-11-05] MEDS: multivitamin therapeutic Tablet 1 TAB PO (09:43)
[2021-11-05] MEDS: predniSONE 20 mg Tablet 40 MG PO (09:43)
[2021-11-05] MEDS: potassium chloride ER 10 mEq Tablet PO (09:43)
[2021-11-05] MEDS: metoprolol tartrate 25 mg Tablet PO ×2 (09:44→21:40)
[2021-11-05] MEDS: folic acid 1 mg Tablet PO (09:44)
[2021-11-05] MEDS: nicotine 21 mg Patch 1 PATCH TRANSDERMA (09:44)
[2021-11-05] MEDS: pantoprazole DR 40 mg Tablet PO (09:44)
[2021-11-05 10:36] LABS: Basophils % 0.2 %; Eosinophils % 0.1 %; Hematocrit 36.9 % (42.0-52.0); Hemoglobin 12.3 g/dL (11.7-16.6); Lymphocytes # 1.8 10^3/uL (0.8-4.8); Lymphocytes % 17.4 %; Mean Corpuscular HGB Conc 33.3 g/dL (30.0-36.0); Mean Corpuscular Hemoglobin 32.9 pg (28.0-34.0); Mean Corpuscular Volume 98.7 fl (80-94); Mean Platelet Volume 9.4 fL (7.4-10.4); Monocytes # 0.7 10^3/uL (0.2-0.9); Monocytes % 7.1 %; Neutrophils # 7.54 10^3/uL (1.8-7.7); Neutrophils % 74.9 %; Nucleated Red Blood Cells % 0 %; Platelet Count 291 10^3/cmm (130-400); Red Blood Count 3.74 10^6/uL (4.1-5.3); Red Cell Distribution Width 15.1 % (12.1-15.1); White Blood Count 10.1 10^3/uL (4.0-10.0)
[2021-11-05 10:55] LABS: Alanine Aminotransferase 8 U/L (0-41); Albumin Level 3.8 g/dL (3.5-5.2); Alkaline Phosphatase 87 IU/L (40-130); Anion Gap 14.7 (5-19); Aspartate Amino Transferase 18 U/L (0-40); Blood Urea Nitrogen 15 mg/dL (6-20); Calcium 9.1 mg/dL (8.5-10.5); Carbon Dioxide 28 mmol/L (22-29); Chloride 99 mmol/L (98-107); Globulin 2.5 g/dL (1.3-4.6); Glomerular Filtration Rate 138.4 mL/min (90-130); Glucose 120 mg/dL (65-115); Magnesium 1.4 mg/dL (1.7-2.3); Osmolality Calculated 288 mOsm/kg (285-295); Potassium 3.7 mmol/L (3.5-5.1); Sodium 138 mmol/L (136-145); Total Bilirubin 0.2 mg/dL (0.15-1.2); Total Protein 6.3 g/dL (6.6-8.7)
--- NOTE | 2021-11-05 12:22 | PM.PN ---
Subjective Subjective: Vitamin B12 480 Patient is stating that he wants to go home however he is unstable I did tell him that if he wants to go home he will be leaving AGAINST MEDICAL ADVICE, I would recommend skilled nursing placement, he is unsafe to return home, he lives alone and is at risk of falls patient is stating that he would wait until his brother is here to decide further Vitals/I&O/Wt Last Vital Signs Temp 97.4 F L 11/05/21 12:00 Pulse 79 11/05/21 12:00 Resp 18 11/05/21 12:00 BP 153/95 11/05/21 12:00 Pulse Ox 98 11/05/21 12:00 11/04/21 11/05/21 11/05/21 22:59 06:59 14:59 Intake Total 290 / 323.971 8165.5 / 1732.500 700 / 700 Output Total 350 / 350 350 / 700 Balance -60 / 320.000 712.5 / 1032.500 700 / 700 Weight last 48 hrs Weight 59.109 kg Weight 68.039 kg Physical Exam Narrative: Patient is laying supine He is wearing his boots Malnourished Abdomen soft S1, S2 COPD No acute audible stridor or wheezing Currently on 1 L nasal cannula He struggles to produce a sputum Still complaining of pleuritic chest pain Reproducible complaint Nonfocal neuro exam Unkept appearance Data : 11/05/21 10:20 11/05/21 10:20 A&P Assessment and plan (1) Hypoxia: Status: Acute (2) Falls: Status: Acute (3) Unsteady gait: Status: Acute (4) Acute exacerbation of chronic obstructive pulmonary disease: Status: Acute (5) Tick-borne disease: Status: Acute (6) Shoulder pain, bilateral: Status: Acute (7) Wernicke encephalopathy: Status: Acute (8) Physical deconditioning: Status: Acute (9) Alcoholism: Status: Acute Plan Acute COPD exacerbation Hypoxia Patient is requiring 1 L nasal cannula Nonproductive cough Pleuritic chest pain Echo EKG and troponin unremarkable I would add ibuprofen scheduled dose DVT prophylaxis Lovenox to be continued He is getting ceftriaxone because of COPD exacerbation Clear due to prednisone 40 mg No signs of worsening of withdrawal Continue CIWA Patient has drunken gait, B12 is above 400 I did recommend him to go to skilled nursing however he is adamant that he would like to go home, He lives alone and he is at risk of multiple falls, Is full code Continue doxycycline for his tickborne rash Attestations Medical Necessity Statement*: Continue medical management Time Spent in Patient Care: 30 Coding Level of Care Code Acute Hospice Volunteer Coordinator for Chg Fwd Diagnoses Hypoxia R09.02 Falls W19.XXXA Unsteady gait R26.81 Acute exacerbation of chronic obstructive pulmonary disease J44.1 Tick-borne disease B88.2 Shoulder pain, bilateral M25.511; M25.512 Wernicke encephalopathy E51.2 Physical deconditioning R53.81 Alcoholism F10.20
[2021-11-05] MEDS: cefTRIAXone 1,000 MG in sodium chloride 0.9% (plus) 50 ML 100 MG IV (13:50)
[2021-11-05] MEDS: enoxaparin 40 mg/0.4 mL Syringe SUBCUT (13:51)
[2021-11-05 13:58] LABS: Lyme AB Screen <0.90 index
[2021-11-05] MEDS: acetaminophen 325 mg Tablet 650 MG PO (15:57)
[2021-11-05] MEDS: magnesium oxide 400 mg tablet PO (21:40)
--- NOTE | 2021-11-05 23:55 | PC.NURSE ---
Patient used restroom with assistance, very unstable, used walker but lost balance with that as well. Shower chair was used while showering. Clean linens and gown were given to the patient. Bed is low and locked, call light in reach as well as personal items. No needs during assessment.
[2021-11-06] VITALS (14 sets, daily range): BP systolic 131–171; BP diastolic 79–104; PULSE 50–122; RESP 13–18; TEMP 36.6–36.7; O2SAT 94–98
[2021-11-06] MEDS: ipratropium-albuterol 3 mL Neb INHALATION ×4 (02:38→20:35)
[2021-11-06] MEDS: acetaminophen 325 mg Tablet 650 MG PO ×3 (06:36→21:12)
[2021-11-06] MEDS: thiamine 100 mg Tablet PO (08:29)
[2021-11-06] MEDS: nicotine 21 mg Patch 1 PATCH TRANSDERMA (08:29)
[2021-11-06] MEDS: multivitamin therapeutic Tablet 1 TAB PO (08:29)
[2021-11-06] MEDS: predniSONE 20 mg Tablet 40 MG PO (08:29)
[2021-11-06] MEDS: potassium chloride ER 10 mEq Tablet PO (08:29)
[2021-11-06] MEDS: magnesium oxide 400 mg tablet PO ×2 (08:29→17:06)
[2021-11-06] MEDS: pantoprazole DR 40 mg Tablet PO (08:29)
[2021-11-06] MEDS: folic acid 1 mg Tablet PO (08:29)
[2021-11-06] MEDS: metoprolol tartrate 25 mg Tablet PO ×2 (08:30→20:28)
[2021-11-06] MEDS: LORazepam 2 mg Tablet PO ×2 (08:30→21:12)
[2021-11-06 11:24] LABS: Basophils % 0.3 %; Eosinophils % 0.1 %; Hematocrit 39.9 % (42.0-52.0); Hemoglobin 13.6 g/dL (11.7-16.6); Lymphocytes # 1.4 10^3/uL (0.8-4.8); Lymphocytes % 18.3 %; Mean Corpuscular HGB Conc 34.1 g/dL (30.0-36.0); Mean Corpuscular Hemoglobin 32.8 pg (28.0-34.0); Mean Corpuscular Volume 96.1 fl (80-94); Monocytes # 0.5 10^3/uL (0.2-0.9); Monocytes % 5.8 %; Neutrophils # 5.86 10^3/uL (1.8-7.7); Neutrophils % 75.2 %; Nucleated Red Blood Cells % 0 %; Platelet Count 298 10^3/cmm (130-400); Red Blood Count 4.15 10^6/uL (4.1-5.3); White Blood Count 7.8 10^3/uL (4.0-10.0)
[2021-11-06 11:42] LABS: Alanine Aminotransferase 10 U/L (0-41); Albumin Level 4.1 g/dL (3.5-5.2); Alkaline Phosphatase 79 IU/L (40-130); Aspartate Amino Transferase 21 U/L (0-40); Blood Urea Nitrogen 11 mg/dL (6-20); Calcium 9.6 mg/dL (8.5-10.5); Carbon Dioxide 30 mmol/L (22-29); Chloride 95 mmol/L (98-107); Glomerular Filtration Rate 138.4 mL/min (90-130); Glucose 99 mg/dL (65-115); Magnesium 1.5 mg/dL (1.7-2.3); Osmolality Calculated 285 mOsm/kg (285-295); Sodium 138 mmol/L (136-145); Total Bilirubin 0.4 mg/dL (0.15-1.2); Total Protein 7.1 g/dL (6.6-8.7)
[2021-11-06 11:47] LABS: Anion Gap 16.8 (5-19); Potassium 3.8 mmol/L (3.5-5.1)
--- NOTE | 2021-11-06 13:02 | PM.PN ---
Subjective Subjective: Morning he was able to work with physical therapy however still unsteady and weak he was complaining of dizziness during his physical therapy session, he use a walker, still not safe to return home, patient is stating that at no cost is going to nursing, he wants to go with his brother or live alone, I told him I recommendation is still long term placement because he needs some rehab to get some strength back and there is nerve damage might be irreversible from his alcohol If he leaves it might be AGAINST MEDICAL ADVICE Vitals/I&O/Wt Last Vital Signs Temp 98.1 F 11/06/21 11:35 Pulse 75 11/06/21 11:35 Resp 18 11/06/21 11:35 BP 148/79 11/06/21 11:35 Pulse Ox 97 11/06/21 11:35 O2 Del Method 11/06/21 08:27 O2 Flow Rate 2 11/06/21 08:27 11/05/21 11/06/21 11/06/21 22:59 06:59 14:59 Intake Total 720 / 1710 360 / 360 Output Total 650 / 650 650 / 650 Balance 70 / 1060 -290 / -290 Physical Exam Narrative: Weak and lethargic Complaining of dizziness on ambulation Ataxic gait No active signs of stroke Muscle mass loss Unkept appearance Bilateral breath sounds with mild rhonchi at the bases Currently on room air saturating well Rhonchi present on lung auscultation Abdomen is flat Nonfocal neuro exam Nonproductive cough Data : 11/06/21 10:29 11/06/21 10:29 Micro: Microbiology 11/05/21 09:14 Gram Stain - Final Sputum - Expectorated Sputum Sputum Culture - Preliminary A&P Assessment and plan (1) Hypoxia: Status: Acute (2) Falls: Status: Acute (3) Unsteady gait: Status: Acute (4) Hypoxia: Status: Acute (5) Acute exacerbation of chronic obstructive pulmonary disease: Status: Acute (6) Tick-borne disease: Status: Acute (7) COPD (chronic obstructive pulmonary disease): Status: Acute (8) Physical deconditioning: Status: Acute (9) Wernicke encephalopathy: Status: Acute Plan Acute COPD exacerbation I will discontinue antibiotics He has been afebrile Will only continue doxycycline Tickborne illness: Continue p.o. doxycycline, continue IV regimen Alcohol-related neuropathy Still unsteady on his feet Will need rehab Continue thiamine, B12 on 400 No active signs of stroke Patient is malnourished, unkept We are recommending long term placement, patient does not want to go to long term at all I have tried to call his brother it went to voicemail Is full code Cardiac diet DVT prophylaxis Lovenox He did not qualify for oxygen during PT session I did watch him and his oxygen, he was saturating 98% on room air Attestations Medical Necessity Statement*: Continue medical management Time Spent in Patient Care: 30 Coding Level of Care Code Acute Direct Marketing Intern for Chg Fwd Diagnoses Hypoxia R09.02 Falls W19.XXXA Unsteady gait R26.81 Hypoxia R09.02 Acute exacerbation of chronic obstructive pulmonary disease J44.1 Tick-borne disease B88.2 COPD (chronic obstructive pulmonary disease) J44.9 Physical deconditioning R53.81 Wernicke encephalopathy E51.2
[2021-11-06] MEDS: enoxaparin 40 mg/0.4 mL Syringe SUBCUT (13:44)
[2021-11-06] MEDS: doxycycline 100 mg Tablet PO (17:06)
--- NOTE | 2021-11-06 20:19 | PC.NURSE ---
i reported high pulse 122 to nurse
--- NOTE | 2021-11-06 20:29 | PC.NURSE ---
Pt in bed resting, put his o2 on at 1.5 L to help him rest, he was feeling a bit SOB, no needs at assessment, bed low and locked, rails x's 2 up top with padding on them, items in reach, call light in reach as well, bed is low and locked
[2021-11-07] VITALS (12 sets, daily range): BP systolic 117–136; BP diastolic 68–97; PULSE 76–102; RESP 16–18; TEMP 36.4–36.6; O2SAT 92–98
[2021-11-07] MEDS: LORazepam 2 mg Tablet PO (00:29)
[2021-11-07] MEDS: ipratropium-albuterol 3 mL Neb INHALATION ×2 (02:59→09:27)
--- NOTE | 2021-11-07 04:26 | PC.NURSE ---
Patient in bed resting, also having hallucinations this evening, very little sleep tonight, bed is low and locked, call light in reach
[2021-11-07] MEDS: doxycycline 100 mg Tablet PO (09:15)
[2021-11-07] MEDS: magnesium oxide 400 mg tablet PO (09:15)
[2021-11-07] MEDS: pantoprazole DR 40 mg Tablet PO (09:16)
[2021-11-07] MEDS: nicotine 21 mg Patch 1 PATCH TRANSDERMA (09:16)
[2021-11-07] MEDS: metoprolol tartrate 25 mg Tablet PO (09:16)
[2021-11-07] MEDS: folic acid 1 mg Tablet PO (09:16)
[2021-11-07] MEDS: thiamine 100 mg Tablet PO (09:16)
[2021-11-07] MEDS: multivitamin therapeutic Tablet 1 TAB PO (09:16)
[2021-11-07] MEDS: potassium chloride ER 10 mEq Tablet PO (09:16)
--- NOTE | 2021-11-07 10:39 | P.DS_ITS ---
Discharge Providers Date of Admission: 11/03/21 20:10 Date of Discharge: November 07, 2021 Attending Provider at Admission: Jose Harris Attending Provider at Discharge: Aspen Mijares MD Diagnoses at Discharge Discharge Diagnosis (1) Hypoxia: Status: Acute (2) Falls: Status: Acute (3) Unsteady gait: Status: Acute (4) Hypoxia: Status: Acute (5) Acute exacerbation of chronic obstructive pulmonary disease: Status: Acute (6) Tick-borne disease: Status: Acute (7) COPD (chronic obstructive pulmonary disease): Status: Acute (8) Physical deconditioning: Status: Acute (9) Wernicke encephalopathy: Status: Acute Reason for Visit Reason for Visit: SOB Hospital Course Hospital Course 60-year-old male who was admitted for management of emphysematous COPD exacerbation, he was not using oxygen at home, this time he was requiring 2 L, he was diagnosed with COPD exacerbation however no active consolidation or signs of PE. 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 B12 around 400. No signs of stroke. Muscle mass loss. He did well with physical therapy. Patient is stating that he does have a walker at home. We recommended snf however he does not want to go to any snf at any cost he does not want to give up his Social Security check. At the time of discharge I have notified his b adam who is willing to take care of him for short period time until he regains his strength. We will give him outpatient physical therapy referral as well. We will give him trilogy inhaler and doxycycline. His left arm had typical bull's-eye/erythema migrans tick bite rash. He did receive ceftriaxone and doxycycline during his hospitalization. His antibiotics were changed to only doxycycline at the time of discharge. No leukocytosis, he remained afebrile. Cultures negative. He did not qualify for oxygen during PT evaluation. We will discharge him after home O2 eval by RT. Echo showed preserved ejection fraction, patient was complaining of chest pain when he came in, his chest pain was not cardiac in nature, it responded well to anti-inflammatory, it was reproducible pleuritic chest pain. CTA ruled out PE. Physical Exam Narrative: Patient is malnourished, muscle mass loss is apparent Awake and alert Nonfocal neuro exam No active shortness of breath conversational dyspnea and tachypnea S1, S2 No active confabulation no signs of withdrawal of alcohol Nonfocal neuro exam He is able to walk with the help of physical therapist using a walker Discharge Data Studies Completed and Pending Completed Studies During Hospitalization Category Date Time Status CTA chest [CT angio chest PE protcl [id number]] Urgent Cat Scan 11/03/21 15:39 Completed XR chest 1V portable [id number] Stat Exams 11/03/21 14:39 Completed CV. echo complete* [id number] Routine Ultrasound 11/04/21 10:27 Completed Pending at discharge Category Date Time Status Tick Panel Stat Lab 11/03/21 15:15 Results Radiology Impressions Chest X-Ray 11/03/21 14:39 IMPRESSION: No acute cardiopulmonary abnormality. Chest CTA 11/03/21 15:39 IMPRESSION: 1. No pulmonary embolus is seen. 2. Pulmonary emphysema. 3. Coronary artery disease. 4. Cholelithiasis. Laboratory Results WBC 7.8 10^3/uL (4.0-10.0) 11/06/21 10:29 RBC 4.15 10^6/uL (4.1-5.3) 11/06/21 10:29 Hgb 13.6 g/dL (11.7-16.6) 11/06/21 10:29 Hct 39.9 % (42.0-52.0) L 11/06/21 10:29 MCV 96.1 fl (80-94) H 11/06/21 10:29 MCH 32.8 pg (28.0-34.0) 11/06/21 10:29 MCHC 34.1 g/dL (30.0-36.0) 11/06/21 10:29 RDW 15.0 % (12.1-15.1) 11/06/21 10:29 Plt Count 298 10^3/cmm (130-400) 11/06/21 10:29 MPV 10.0 fL (7.4-10.4) 11/06/21 10:29 Neut % (Auto) 75.2 % 11/06/21 10:29 Lymph % (Auto) 18.3 % 11/06/21 10:29 [place] % (Auto) 5.8 % 11/06/21 10:29 Eos % (Auto) 0.1 % 11/06/21 10:29 Baso % (Auto) 0.3 % 11/06/21 10:29 Neut # (Auto) 5.86 10^3/uL (1.8-7.7) 11/06/21 10: Lymph # (Auto) 1.4 10^3/uL (0.8-4.8) 11/06/21 10:29 [place] # (Auto) 0.5 10^3/uL (0.2-0.9) 11/06/21 10: Eos # (Auto) 0.0 10^3/uL (0.0-0.8) 11/06/21 10: Baso # (Auto) 0.0 10^3/uL (0.0-0.1) 11/06/21 10: Nucleated RBC % (auto) 0 % 11/06/21 10: Nucleated RBCs # 0.0 /100WBC 11/06/21 10: D-Dimer 0.66 ug/mIFEU (0-0.59) H 11/03/21 15:15 Specimen Type Arterial 11/03/21 15:02 Sample Site Brachial, left 11/03/21 15:02 ABG pH 7.38 (7.35-7.45) 11/03/21 15:02 ABG pCO2 46.8 mmHg (35-45) H 11/03/21 15:02 ABG pO2 112.0 mmHg (80.0-100.0) H 11/03/21 15:02 ABG HCO3 27.7 mmol/L (22-26) H 11/03/21 15:02 ABG O2 Saturation 98.6 11/03/21 15:02 ABG Base Excess 2.0 mmol/L (-2.0-2.0) 11/03/21 15:02 Vasyl Test N/a 11/03/21 15:02 A-a O2 Gradient 11.1 mmHg (5-10) H 11/03/21 15:02 Hematocrit 38.9 % (42-52) L 11/03/21 15:02 Hgb O2 Saturation 92.3 % (95-100) L 11/03/21 15:02 Carboxyhemoglobin 5.5 %THgb (0.4-20.1) 11/03/21 15:02 Methemoglobin 0.9 % (0.4-1.5) 11/03/21 15:02 Total Hemoglobin 12.7 g/dL (14-18) L 11/03/21 15:02 Sodium 150.0 mmol/L (131-143) H 11/03/21 15:02 Potassium 3.5 mmol/L (3.5-5.0) 11/03/21 15:02 Glucose 150.0 mg/dL (70-115) H 11/03/21 15:02 Ionized Calcium 1.1 mmol/L (1.1-1.4) 11/03/21 15:02 O2 Delivery Device Nc 11/03/21 15:02 O2 Liters/Min 4.0 % 11/03/21 15:02 FiO2 36.0 % 11/03/21 15:02 Government Instructor ID Ed 11/03/21 15:02 Sodium 138 mmol/L (136-145) 11/06/21 10:29 Potassium 3.8 mmol/L (3.5-5.1) 11/06/21 10:29 Chloride 95 mmol/L (98-107) L 11/06/21 10:29 Carbon Dioxide 30 mmol/L (22-29) H 11/06/21 10:29 Anion Gap 16.8 (5-19) 11/06/21 10:29 BUN 11 mg/dL (6-20) 11/06/21 10:29 Creatinine 0.6 mg/dL (0.7-1.2) L 11/06/21 10:29 GFR Calculation 138.4 mL/min (90-130) H 11/06/21 10:29 Glucose 99 mg/dL (65-115) 11/06/21 10:29 Calculated Osmolality 285 mOsm/kg (285-295) 11/06/21 10:29 Calcium 9.6 mg/dL (8.5-10.5) 11/06/21 10:29 Magnesium 1.5 mg/dL (1.7-2.3) L 11/06/21 10:29 Total Bilirubin 0.4 mg/dL (0.15-1.2) 11/06/21 10:29 AST 21 U/L (0-40) 11/06/21 10:29 ALT 10 U/L (0-41) 11/06/21 10:29 Alkaline Phosphatase 79 IU/L (40-130) 11/06/21 10:29 Troponin T Baseline 17 ng/L (0-15) H 11/03/21 15:15 Troponin T 120 Minute 16.14 ng/L (0-15) H 11/03/21 17:45 Delta Troponin T -0.86 ABS# (0-10) L 11/03/21 17:45 Troponin T Hi Sens 6Hr 10.22 ng/L (0-15) 11/03/21 20:45 Troponin T Hi Sens 6Hr Delta -6.78 ng/L (0-12) L 11/03/21 20:45 NT-Pro-B Natriuret Pep 246 pg/mL (0-125) H 11/03/21 15:15 Total Protein 7.1 g/dL (6.6-8.7) 11/06/21 10:29 Albumin 4.1 g/dL (3.5-5.2) 11/06/21 10:29 Globulin 3.0 g/dL (1.3-4.6) 11/06/21 10:29 Lipase 22 U/L (13-60) 11/03/21 20:45 Vitamin B12 480 pg/mL (232-1245) 11/04/21 04:25 Urine Opiates Screen Negative ng/mL (Negative) 11/04/21 05:37 Ur Barbiturates Screen Negative ng/mL (Negative) 11/04/21 05:37 Ur Phencyclidine Scrn Negative ng/mL (Negative) 11/04/21 05:37 Ur Amphetamines Screen Negative ng/mL (Negative) 11/04/21 05:37 U Benzodiazepines Scrn Negative ng/mL (Negative) 11/04/21 05:37 Urine Cocaine Screen Negative ng/mL (Negative) 11/04/21 05:37 U Marijuana (THC) Screen Negative ng/mL (Negative) 11/04/21 05:37 Lyme Ab (Western Blot) <0.90 index 11/03/21 15:15 SARS-CoV-2 Ag (Rapid) Negative (Negative) 11/03/21 15:40 Vitals Last Vital Signs Temp 97.7 F 11/07/21 07:43 Pulse 102 H 11/07/21 09:32 Resp 17 11/07/21 09:27 BP 136/97 11/07/21 07:43 Pulse Ox 96 11/07/21 09:37 O2 Del Method 11/07/21 09:27 O2 Flow Rate 2 11/06/21 20:24 Discharge Plan Discharge Patient Disposition: Home Condition: Stable Prescriptions: New prednisone 50 mg tablet 50 mg PO DAILY 5 Days Qty: 5 0RF albuterol sulfate 90 mcg/actuation HFA aerosol inhaler 1 inh inhalation Q6H PRN (Reason: shortness of breath or wheezing) Qty: 8.5 0RF doxycycline hyclate 100 mg tablet 100 mg PO BID 5 Days Qty: 10 0RF folic acid 1 mg Tablet 1 mg PO DAILY Qty: 30 0RF thiamine mononitrate (vit B1) [Vitamin B-1 (mononitrate)] 100 mg Tablet 100 mg PO DAILY Qty: 90 0RF Magnesium Oxide [Magox] 400 mg PO BID Qty: 6 0RF cyanocobalamin (vitamin B-12) 1,000 mcg capsule 1,000 mcg PO DAILY Qty: 60 1RF Trelegy Ellipta 100-62.5-25 mcg blister with device 1 inh inhalation DAILY Qty: 60 4RF Continued metoprolol tartrate 25 mg tablet 25 mg PO BID Qty: 180 3RF acetaminophen [Tylenol Extra Strength] 500 mg Tablet 1,000 mg PO Q4H PRN (Reason: Pain) ibuprofen 200 mg Tablet 400 mg PO Q4H PRN (Reason: Pain) folic acid 1 mg Tablet 1 mg PO DAILY 30 Days Qty: 30 2RF albuterol sulfate 90 mcg/actuation HFA aerosol inhaler 2 inh inhalation Q6H PRN (Reason: shortness of breath or wheezing) Discharge Orders: Discharge Order (Routine); Ordered 11/07/21 Ordered By: Aspen Mijares Other Ambulatory Orders: DME: Oxygen (Order) Location: None Selected Ordered By: Terry Rajput Physical Therapy Eval and Treat Outpatient (Order) Timeframe: 2 Months Facility: [facility] - Location: PT & OT [facility] Ordered By: Aspen Mijares Referrals: your, PCP [Other] - 1-3 days Discharge Diet: Cardiac Discharge Activity: As per PT/OT instructions Patient Instructions: Tick Bite (ED), COPD (Chronic Obstructive Pulmonary Disease) (ED), Opioid Safety Discharge Attestations Time Spent in Discharge Care*: less than 30 min Status at Discharge: Cognitive status at discharge: cognitively intact , Behavioral status at discharge: cooperative , Quality Metrics Clinical Quality Measures [ No reported AMI, CVA or VTE this stay] Coding Level of Care Code Acute Chg FW DC note Diagnoses Hypoxia R09.02 Falls W19.XXXA Unsteady gait R26.81 Hypoxia R09.02 Acute exacerbation of chronic obstructive pulmonary disease J44.1 Tick-borne disease B88.2 COPD (chronic obstructive pulmonary disease) J44.9 Physical deconditioning R53.81 Wernicke encephalopathy E51.2
--- NOTE | 2021-11-07 11:16 | PC.NURSE ---
Medications called into [facility] pharmacy for Meds to beds
--- NOTE | 2021-11-07 13:08 | PC.NURSE ---
Discharge Note Patient discharged to Home via transport services accompanied by national dedicated truck driver. Discharge instructions reviewed with patient and/or cordage sales representative. Mobile pharmacy medications and/or prescriptions provided. Belongings/home medications returned.
[2021-11-08 17:52] LABS: RMSF IGG NOT DETECTED; RMSF IGM NOT DETECTED
[2021-11-13 20:58] LABS: E. Chaffeensis AB IGG <1:64; E. Chaffeensis AB IGM <1:20
== END 2021-11-07 13:13 | disposition home or self-care (01) | DRG 191 ==
LOC: ER 19:07 → MEDSURG 20:33
PROVIDERS: Admitting Provider Internal Medicine; Emergency Provider Emergency Medicine; Visit Provider Internal Medicine
DX: J44.1 Chronic obstructive pulmonary disease with (acute) exacerbation (principal); A94 Unspecified arthropod-borne viral fever; E51.2 Wernicke's encephalopathy; F10.288 Alcohol dependence with other alcohol-induced disorder; E46 Unspecified protein-calorie malnutrition; Z68.1 Body mass index [BMI] 19.9 or less, adult; F10.239 Alcohol dependence with withdrawal, unspecified; G62.1 Alcoholic polyneuropathy; R07.81 Pleurodynia; R26.0 Ataxic gait; R29.6 Repeated falls; G89.29 Other chronic pain; I10 Essential (primary) hypertension; R11.0 Nausea; F17.210 Nicotine dependence, cigarettes, uncomplicated; F41.9 Anxiety disorder, unspecified; F32.9 Major depressive disorder, single episode, unspecified; M25.512 Pain in left shoulder; M25.511 Pain in right shoulder; Z91.81 History of falling; Z20.822 Contact with and (suspected) exposure to COVID-19; Z59.89 Other problems related to housing and economic circumstances
CPT/HCPCS: 36415; 36600; 71045; 71275; 80051; 80053; 80306; 82330; 82607; 82805; 83690; 83735; 83880; 84484; 85025; 85378; 86618; 86666; 86757; 87070; 87205; 87426; 93005; 93306; 94640; 94664; 94760; 96372; 97110; 97116; 97161; 97166; 97530; 97535; 99285; J0696; J1650; J1885; J2920; J2930; J3411; J3490; J7512; Q9967

== ENCOUNTER 2021-11-07 21:18 | Emergency (ER) | payer MEDICAID, SELFPAY ==
--- NOTE | 2021-11-07 21:23 | XRR_ITS ---
PROCEDURE INFORMATION: Exam: XR Chest Exam date and time: 11/07/2021 9:29 PM Age: 60 years old Clinical indication: Chest pressure; Patient HX: C/O chest pain. History of copd. ; Additional info: Cp TECHNIQUE: Imaging protocol: Radiologic exam of the chest. Views: 1 view. COMPARISON: CR (CHEST, ) 11/03/2021 3:11 PM FINDINGS: Lungs: Lungs are clear bilaterally. Pleural spaces: No pleural effusion. No pneumothorax. Heart/Mediastinum: Stable mild enlargement of the cardiac silhouette. Mediastinal contours are unremarkable. Vasculature: Stable vascular calcifications in the aorta. Bones/joints: Bones are diffusely osteopenic. Degenerative changes in the spine and shoulders. Multiple old right rib fractures. Osseous findings are stable. XR/XR chest 1V portable [id number] IMPRESSION: 1. No acute cardiopulmonary process. 2. Incidental/nonacute findings are listed in the report.
[2021-11-07 21:25] VITALS: BP 90/58; PULSE 79; RESP 18; TEMP 36.6; O2SAT 92; BMI 20.8
--- NOTE | 2021-11-07 21:39 | ECG_ITS ---
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 Measurements Intervals [place] Rate: 75 P: 76 [place]: 178 QRS: 79 QRSD: 78 T: 79 QT: 387 QTc: 435 Interpretive Statements SINUS RHYTHM Compared to ECG 11/04/2021 08:34:20 Myocardial infarct finding no longer present Electronically Signed On 11-08-2021 10:33:46 CDT by Yoko Restrepo M.D. [id number]
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
[2021-11-07] MEDS: ondansetron 2 mg/ML SDV 2 mL 4 MG IVP (21:48)
[2021-11-07 21:50] VITALS: RESP 17
[2021-11-07] MEDS: morphine 4 mg/mL SDV 1 mL IVP (21:50)
[2021-11-07 21:57] LABS: Basophils % 0.3 %; Eosinophils % 0.6 %; Hemoglobin 10.6 g/dL (11.7-16.6); Lymphocytes # 2.1 10^3/uL (0.8-4.8); Lymphocytes % 33.7 %; Mean Corpuscular HGB Conc 31.2 g/dL (30.0-36.0); Mean Corpuscular Hemoglobin 32.8 pg (28.0-34.0); Mean Corpuscular Volume 105.3 fl (80-94); Mean Platelet Volume 9.7 fL (7.4-10.4); Monocytes # 0.5 10^3/uL (0.2-0.9); Monocytes % 7.4 %; Neutrophils # 3.66 10^3/uL (1.8-7.7); Neutrophils % 57.7 %; Nucleated Red Blood Cells % 0 %; Platelet Count 246 10^3/cmm (130-400); Red Blood Count 3.23 10^6/uL (4.1-5.3); Red Cell Distribution Width 15.6 % (12.1-15.1); White Blood Count 6.4 10^3/uL (4.0-10.0)
[2021-11-07 22:21] LABS: Alanine Aminotransferase 13 U/L (0-41); Albumin Level 2.9 g/dL (3.5-5.2); Alcohol Level 172 mg/dL (0-10); Alkaline Phosphatase 48 IU/L (40-130); Anion Gap 11.7 (5-19); Aspartate Amino Transferase 20 U/L (0-40); Blood Urea Nitrogen 19 mg/dL (6-20); Calcium 7.4 mg/dL (8.5-10.5); Carbon Dioxide 24 mmol/L (22-29); Chloride 109 mmol/L (98-107); Globulin 1.7 g/dL (1.3-4.6); Glomerular Filtration Rate 99.3 mL/min (90-130); Glucose 67 mg/dL (65-115); Lipase 24 U/L (13-60); Osmolality Calculated 293 mOsm/kg (285-295); Potassium 3.7 mmol/L (3.5-5.1); Sodium 141 mmol/L (136-145); Total Bilirubin 0.2 mg/dL (0.15-1.2); Total Protein 4.6 g/dL (6.6-8.7); Troponin(5th) Baseline 9 ng/L (0-15)
[2021-11-07 22:29] VITALS: BP 92/58; PULSE 72; RESP 17; O2SAT 93
[2021-11-07] MEDS: ondansetron 4 MG Tablet PO (23:45)
[2021-11-07] MEDS: HYDROcodone-acetaminophen 5-325 mg Tablet 1 TAB PO (23:45)
--- NOTE | 2021-11-08 00:02 | PC.NURSE ---
attempted to d/c patient and he refused to go, stating wanted to speak with Dr. Dr Javed spoke with the patient and discussed care with the patient again. Patient states I need to be admitted. was again explained to him that he did not meet criteria for admission. He became agitated with me and stated he wants to see the other doctor that saw him last time he was here. advised him that Dr Javed was the physician on duty tonbri and he has spoken with him. patient then asked for a Uber ride back to his home. I informed him we would not be able to assist him with that and he then told me he would be contacting his occ therapy asst and his occ therapy asst would be contacting me about the care he received tonight.
[2021-11-08 00:06] VITALS: RESP 18
== END 2021-11-08 00:08 | disposition home or self-care (01) ==
PROVIDERS: Emergency Provider Emergency Medicine
DX: R07.9 Chest pain, unspecified (principal); F10.20 Alcohol dependence, uncomplicated; J44.9 Chronic obstructive pulmonary disease, unspecified; I10 Essential (primary) hypertension; F17.210 Nicotine dependence, cigarettes, uncomplicated
CPT/HCPCS: 71045; 80053; 80307; 83690; 84484; 85025; 93005; 96374; 96375; 99285; J2270; J2405; Q0162

== ENCOUNTER 2021-11-14 17:46 | Emergency (ER) | payer MEDICAID, SELFPAY ==
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
[2021-11-14 17:52] VITALS: BP 105/72; PULSE 87; RESP 16; TEMP 36.8; O2SAT 97; BMI 20.5
[2021-11-14 17:57] VITALS: BP 118/68; PULSE 83; RESP 18; O2SAT 86
[2021-11-14 18:00] VITALS: O2SAT 93
--- NOTE | 2021-11-14 18:17 | CTR_ITS ---
PROCEDURE INFORMATION: Exam: CT Head Without Contrast Exam date and time: 11/14/2021 7:19 PM Age: 60 years old Clinical indication: Altered mental status/memory loss; Additional info: AMS TECHNIQUE: Imaging protocol: Computed tomography of the head without contrast. Radiation optimization: All CT scans at this facility use at least one of these dose optimization techniques: automated exposure control; mA and/or kV adjustment per patient size (includes targeted exams where dose is matched to clinical indication); or iterative reconstruction. COMPARISON: CT head wo con* [id number] 06/05/2021 7:19 PM RADIATION DOSE METRICS: Total DLP (mGy-cm): 1057.18 FINDINGS: Brain: Moderate diffuse cortical volume loss. Moderate hypodensities in supratentorial periventricular and subcortical white matter, consistent with microangiopathy. No intracranial hemorrhage. Cerebral ventricles: No ventriculomegaly. Paranasal sinuses: Mucosal thickening in the inferior frontal sinuses and anterior ethmoid air cells. No air-fluid level. Mastoid air cells: Visualized mastoid air cells are well aerated. Bones/joints: Unremarkable. No acute fracture. Soft tissues: Unremarkable. Vasculature: No hyperdense artery. CT/CT head wo con* [id number] IMPRESSION: No acute intracranial finding.
--- NOTE | 2021-11-14 18:17 | CTR_ITS ---
PROCEDURE INFORMATION: Exam: CT Lumbar Spine Without Contrast Exam date and time: 11/14/2021 7:38 PM Age: 60 years old Clinical indication: Low back pain TECHNIQUE: Imaging protocol: Computed tomography of the lumbar spine without contrast. Radiation optimization: All CT scans at this facility use at least one of these dose optimization techniques: automated exposure control; mA and/or kV adjustment per patient size (includes targeted exams where dose is matched to clinical indication); or iterative reconstruction. COMPARISON: CT lumbar spine wo con* [id number] 07/10/2020 7:35 PM RADIATION DOSE METRICS: Total DLP (mGy-cm): 578.93 FINDINGS: Bones/joints: Generalized osseous demineralization. No acute fracture. Normal alignment. Discs/Spinal canal/Neural foramina: No severe spinal canal stenosis. No significant neural foraminal narrowing. Soft tissues: Unremarkable. CT/CT lumbar spine wo con* [id number] IMPRESSION: No acute findings.
--- NOTE | 2021-11-14 18:17 | CTR_ITS ---
PROCEDURE INFORMATION: Exam: CT Cervical Spine Without Contrast Exam date and time: 11/14/2021 7:33 PM Age: 60 years old Clinical indication: Weakness; Additional info: AMS TECHNIQUE: Imaging protocol: Computed tomography of the cervical spine without contrast. Radiation optimization: All CT scans at this facility use at least one of these dose optimization techniques: automated exposure control; mA and/or kV adjustment per patient size (includes targeted exams where dose is matched to clinical indication); or iterative reconstruction. COMPARISON: CT Cervical Spine wo* [id number] 10/12/2015 7:48 PM RADIATION DOSE METRICS: Total DLP (mGy-cm): 190.37 FINDINGS: Bones/joints: The vertebral body stature is maintained. Mild anterior degenerative subluxations of C3 on C4 and C4 on C5. The facets are intact with hypertrophic degenerative changes. Discs/Spinal canal/Neural foramina: Disc space narrowing at C5-C6 and C6-C7 with anterior degenerative endplate changes. Right bony foraminal stenosis at C3-C4 through C5-C6. No significant central canal stenosis identified. Lungs: Severe emphysema. 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 CT/CT cervical spin wo con* [id number] IMPRESSION: 1. No fracture or acute finding. 2. Multilevel degenerative changes.
--- NOTE | 2021-11-14 18:17 | XRR_ITS ---
PROCEDURE INFORMATION: Exam: XR Chest Exam date and time: 11/14/2021 6:34 PM Age: 60 years old Clinical indication: Angina; Additional info: Cp TECHNIQUE: Imaging protocol: Radiologic exam of the chest. Views: 1 view. COMPARISON: CR (CHEST, ) 11/07/2021 9:29 PM FINDINGS: Lungs: Unremarkable. No consolidation. Pleural spaces: Unremarkable. No pleural effusion. No pneumothorax. Heart/Mediastinum: Unremarkable. No cardiomegaly. Bones/joints: Old healed right rib fractures. Thoracolumbar scoliosis. XR/XR chest 1V portable [id number] IMPRESSION: No acute findings.
--- NOTE | 2021-11-14 18:27 | ECG_ITS ---
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 Measurements Intervals [place] Rate: 82 P: 79 MT: 184 QRS: 79 QRSD: 85 T: 84 QT: 403 QTc: 471 Interpretive Statements SINUS RHYTHM Compared to ECG 11/07/2021 21:39:26 No significant changes Electronically Signed On 11-15-2021 11:23:03 CDT by Yoko Restrepo M.D. [id number]
[2021-11-14 18:33] VITALS: BP 130/81; PULSE 88; RESP 18; O2SAT 94
[2021-11-14 19:03] VITALS: BP 121/75; PULSE 89; RESP 15; O2SAT 97
[2021-11-15 00:11] VITALS: RESP 19; O2SAT 94
[2021-11-15 01:00] VITALS: BP 127/79; PULSE 81; RESP 20; O2SAT 94
[2021-11-15 02:03] VITALS: BP 146/83; PULSE 74; RESP 16; O2SAT 98
--- NOTE | 2021-11-15 02:43 | PC.NURSE ---
patient awoke from sleep grabbing chest stating sob and chest pain radiating into left arm. denies heart or lung history. daily smoker and drinker. EKG performed and given to dr mcneill, dr mcneill made aware of patient statements and pain.
--- NOTE | 2021-11-15 02:43 | ECG_ITS ---
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 Measurements Intervals [place] Rate: 76 P: 81 OR: 186 QRS: 81 QRSD: 81 T: 83 QT: 396 QTc: 446 Interpretive Statements SINUS RHYTHM Compared to ECG 11/14/2021 18:27:23 No significant changes Electronically Signed On 11-15-2021 11:22:36 CDT by Yoko Restrepo M.D. [id number]
--- NOTE | 2021-11-15 02:53 | PC.NURSE ---
pt lying supine in bed, states that sob improving, cp persists. no new orders from dr mcneill at this time.
--- NOTE | 2021-11-15 04:17 | PC.NURSE ---
cp and sob ceased, patient resting in bed eyes closed resp even and unlabored. clarified with charge nurse if patient is d/c to waiting or contain in ed until ride appears for patient due to no orders for MICHAEL clearance. states at this time patient will remain in ed bed.
[2021-11-15 06:00] VITALS: BP 159/92; PULSE 63; RESP 19; O2SAT 98
--- NOTE | 2021-11-15 07:27 | PC.NURSE ---
report given to oncoming nurse.
--- NOTE | 2021-11-15 07:28 | PC.NURSE ---
attempted to contact family e contacts at [phone] and [phone] without answer multiple times.
[2021-11-15 07:53] VITALS: BP 169/95; PULSE 73; RESP 18; O2SAT 96
== END 2021-11-15 07:55 | disposition home or self-care (01) ==
PROVIDERS: Emergency Provider Emergency Medicine
DX: F10.10 Alcohol abuse, uncomplicated (principal); G89.29 Other chronic pain; F17.210 Nicotine dependence, cigarettes, uncomplicated; J44.9 Chronic obstructive pulmonary disease, unspecified; I10 Essential (primary) hypertension
CPT/HCPCS: 70450; 71045; 72125; 72131; 93005; 99284

== ENCOUNTER 2021-11-18 22:28 | Emergency (ER) | payer MEDICAID, SELFPAY ==
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
[2021-11-18 22:40] VITALS: BP 151/90; PULSE 80; RESP 15; TEMP 36.8; O2SAT 95; BMI 19.8
[2021-11-18 22:50] VITALS: BP 151/90; PULSE 76; RESP 15; O2SAT 94
--- NOTE | 2021-11-18 22:52 | XRR_ITS ---
PROCEDURE INFORMATION: Exam: XR Chest Exam date and time: 11/18/2021 11:08 PM Age: 60 years old Clinical indication: Patient HX: C/O RT facial/rt upper ext numbness. ; Additional info: AMS TECHNIQUE: Imaging protocol: Radiologic exam of the chest. Views: 1 view. COMPARISON: CR (CHEST, ) 11/14/2021 6:34 PM FINDINGS: Lungs: Mild bibasilar opacities may represent atelectasis. No consolidation. Pleural spaces: Unremarkable. No pleural effusion. No pneumothorax. Heart/Mediastinum: Unremarkable. No cardiomegaly. Bones/joints: Re-demonstration of multiple chronic right-sided rib fractures. XR/XR chest 1V portable [id number] IMPRESSION: No acute radiographic findings in the chest.
--- NOTE | 2021-11-18 22:52 | CTR_ITS ---
PROCEDURE INFORMATION: Exam: CT Head Without Contrast Exam date and time: 11/18/2021 11:14 PM Age: 60 years old Clinical indication: Weakness, extremity and weakness, facial; Right; Patient HX: C/O RT facial/rt upper ext numbness. ; Additional info: AMS, reports stroke sympoms R face/arm TECHNIQUE: Imaging protocol: Computed tomography of the head without contrast. Radiation optimization: All CT scans at this facility use at least one of these dose optimization techniques: automated exposure control; mA and/or kV adjustment per patient size (includes targeted exams where dose is matched to clinical indication); or iterative reconstruction. COMPARISON: CT head wo con* [id number] 11/14/2021 7:19 PM RADIATION DOSE METRICS: Total DLP (mGy-cm): 1001.68 FINDINGS: Brain: No evidence of acute intracranial hemorrhage. The arellano-white matter differentiation is otherwise maintained. No significant mass effect or midline shift. Suspected partial empty sella. Periventricular hypoattenuation is a nonspecific finding but likely the sequela of chronic small vessel ischemic disease. There are atherosclerotic calcifications of the carotid siphons and the V4 segment of the left vertebral artery. Cerebral ventricles: Moderate cerebral and mild cerebellar volume loss with ex vacuo dilation of the ventricles. Paranasal sinuses: Mild paranasal sinus disease. Opacification of a few ethmoid air cells.. No fluid levels. Mastoid air cells: Visualized mastoid air cells are well aerated. Pneumatization of the petrous apices, right more than left. Small amount of cerumen is present in the left external auditory canal. Bones/joints: Unremarkable. No acute fracture. Soft tissues: Unremarkable. CT/CT head wo con* [id number] IMPRESSION: 1. No acute intracranial hemorrhage, mass effect, or midline shift. 2. Please note that CT is insensitive to nonhemorrhagic gastrocs and MRI of the brain should be considered if there is continued clinical concern for acute cerebral infarction.
--- NOTE | 2021-11-18 22:54 | ECG_ITS ---
[facility] Test Date: 2021-11-18 Pat Name: Vasyl Reis Department: Room: Gender: Male Casing Inspector: : 1960 Requested By: Aaron Mcleod Order Number: [id number] Agustin MD: Hermann Nava M.D. Measurements Intervals [place] Rate: 73 P: 85 [place]: 205 QRS: 78 QRSD: 82 T: 86 QT: 417 QTc: 460 Interpretive Statements SINUS RHYTHM Compared to ECG 11/15/2021 02:43:17 No significant changes Electronically Signed On 11-19-2021 19:02:49 CDT by Hermann Nava M.D. [email or web address]
[2021-11-18 23:17] LABS: Basophils % 0.5 %; Eosinophils % 0.5 %; Erythrocyte Sedimentation Rate 3 mm/hr (0-10); Hematocrit 38.3 % (42.0-52.0); Hemoglobin 12.8 g/dL (11.7-16.6); Lymphocytes # 1.8 10^3/uL (0.8-4.8); Lymphocytes % 30.5 %; Mean Corpuscular HGB Conc 33.4 g/dL (30.0-36.0); Mean Corpuscular Volume 98.7 fl (80-94); Mean Platelet Volume 9.6 fL (7.4-10.4); Monocytes # 0.3 10^3/uL (0.2-0.9); Monocytes % 5.3 %; Nucleated Red Blood Cells % 0 %; Platelet Count 339 10^3/cmm (130-400); Red Blood Count 3.88 10^6/uL (4.1-5.3); Red Cell Distribution Width 14.9 % (12.1-15.1)
[2021-11-18 23:21] LABS: Add Urine Microscopic? NO; Charge for UA Resulting for Rev
[2021-11-18 23:23] LABS: Bilirubin Urine Neg (Negative); Blood Urine Neg (Negative); Glucose Urine UA Norm (Normal); Ketones Urine Negative (Negative); Leukocyte Esterase Urine Negative (Negative); Nitrate Urine Negative (Negative); Protein Urine Neg (Negative); Specific Gravity, Urine 1.005 (1.005-1.030); Urine Appearance Clear (CLEAR); Urine Color Colorless (Yellow); Urobilinogen Urine Norm (Negative); pH Urine 6 (5-7)
[2021-11-18 23:32] LABS: Amphetamines Screen Urine Negative (Negative); Barbiturates Screen Urine Negative (Negative); Benzodiazepines Screen Urine Negative (Negative); Cocaine Screen Urine Negative (Negative); Opiate Screen Urine Negative (Negative); PCP Screen Urine Negative (Negative); THC Screen Urine Negative (Negative)
[2021-11-18 23:43] LABS: Alanine Aminotransferase 19 U/L (0-41); Albumin Level 4.6 g/dL (3.5-5.2); Alcohol Level 290 mg/dL (0-10); Alkaline Phosphatase 85 IU/L (40-130); Anion Gap 22.1 (5-19); Aspartate Amino Transferase 37 U/L (0-40); Blood Urea Nitrogen 13 mg/dL (6-20); Calcium 9.5 mg/dL (8.5-10.5); Carbon Dioxide 26 mmol/L (22-29); Chloride 99 mmol/L (98-107); Globulin 2.5 g/dL (1.3-4.6); Glomerular Filtration Rate 170.8 mL/min (90-130); Glucose 71 mg/dL (65-115); Osmolality Calculated 295 mOsm/kg (285-295); Potassium 4.1 mmol/L (3.5-5.1); Sodium 143 mmol/L (136-145); Thyroid Stimulating Hormone 1.08 uIU/mL (0.27-4.20); Total Bilirubin 0.8 mg/dL (0.15-1.2); Total Protein 7.1 g/dL (6.6-8.7)
[2021-11-19 00:18] LABS: SARS Covid-2 Antigen Negative (Negative)
[2021-11-19 00:20] VITALS: BP 127/69; PULSE 77; RESP 19; O2SAT 90
[2021-11-19 01:30] VITALS: BP 140/74; PULSE 69; RESP 17; O2SAT 90
[2021-11-19] MEDS: ketorolac 30 mg/mL INJ 15 MG IVP (01:33)
[2021-11-19] MEDS: acetaminophen 500 mg Tablet 1000 MG PO (01:33)
[2021-11-19 04:00] VITALS: BP 95/57; PULSE 67; RESP 20; O2SAT 92
[2021-11-19 05:30] VITALS: BP 131/78; PULSE 67; RESP 17; O2SAT 91
[2021-11-19 08:00] VITALS: BP 161/101; PULSE 75; RESP 16; O2SAT 92
[2021-11-19] MEDS: lidocaine 2% viscous 15 ML, aluminum-mag hydrox-simethicon 30 ML, sucralfate oral liq 1 GM PO (11:15)
[2021-11-19 11:21] VITALS: BP 178/108
--- NOTE | 2021-11-21 11:07 | DCPLANNER ---
manager basketball had message to speak with patient about getting established with a primary care physician. manager basketball called phone number [phone] unable to speak with patient and unable to leave a voicemail for patient.
== END 2021-11-19 11:23 | disposition home or self-care (01) ==
PROVIDERS: Emergency Medicine; Emergency Provider Family Medicine
DX: G89.29 Other chronic pain (principal); F10.10 Alcohol abuse, uncomplicated; Y90.8 Blood alcohol level of 240 mg/100 ml or more; Z20.822 Contact with and (suspected) exposure to COVID-19; J44.9 Chronic obstructive pulmonary disease, unspecified; I10 Essential (primary) hypertension; F17.210 Nicotine dependence, cigarettes, uncomplicated
CPT/HCPCS: 70450; 71045; 80053; 80306; 80307; 81003; 84443; 85025; 85651; 86140; 87426; 93005; 99285; J1885

== ENCOUNTER 2021-12-03 17:06 | Emergency (ER) | payer MEDICAID, SELFPAY ==
[2021-12-03 17:18] VITALS: BP 105/64; PULSE 77; RESP 16; TEMP 36.7; O2SAT 93; BMI 21.7
--- NOTE | 2021-12-03 17:22 | XRR_ITS ---
PROCEDURE INFORMATION: Exam: XR Chest Exam date and time: 12/03/2021 5:43 PM Age: 61 years old Clinical indication: Chest wall pain; Additional info: Chest pain TECHNIQUE: Imaging protocol: Radiologic exam of the chest. Views: 1 view. COMPARISON: CR (CHEST, ) 11/18/2021 11:08 PM FINDINGS: Lungs: Unremarkable. No consolidation. Pleural spaces: Unremarkable. No pleural effusion. No pneumothorax. Heart/Mediastinum: Unremarkable. No cardiomegaly. Bones/joints: Rightward thoracic scoliosis. Old bilateral rib fractures. No definite acute fracture identified. XR/XR chest 1V portable [id number] IMPRESSION: No acute finding.
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
--- NOTE | 2021-12-03 17:32 | PC.NURSE ---
Pt reports epigastric pain, shortness of breath, frequent urination, and nausea for months. reports came to ER today because its is getting worst. reports he drinks plenty of water daily. he reports he drank a pint today. Lung sounds clear bilat, speaking in complete sentences without difficulty. bowel sounds present, abdomen soft and nontender to palpation.
--- NOTE | 2021-12-03 17:38 | PC.NURSE ---
pt resting in bed with eyes closed. respirations even and unlabored. no obvious respiratory distress or objective pain symptoms noted.
--- NOTE | 2021-12-03 18:01 | ECG_ITS ---
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 Measurements Intervals [place] Rate: 82 P: 78 [place]: 182 QRS: 75 QRSD: 79 T: 81 QT: 376 QTc: 442 Interpretive Statements SINUS RHYTHM Compared to ECG 11/18/2021 23:58:13 No significant changes Electronically Signed On 12-04-2021 0:17:06 CDT by Hermann Nava M.D. [id number]
[2021-12-03 18:36] LABS: Basophils % 0.8 %; Eosinophils # 0.1 10^3/uL (0.0-0.8); Eosinophils % 1.8 %; Hematocrit 40.8 % (42.0-52.0); Hemoglobin 12.5 g/dL (11.7-16.6); Lymphocytes # 1.9 10^3/uL (0.8-4.8); Lymphocytes % 48.8 %; Mean Corpuscular HGB Conc 30.6 g/dL (30.0-36.0); Mean Corpuscular Hemoglobin 33.3 pg (28.0-34.0); Mean Corpuscular Volume 108.8 fl (80-94); Mean Platelet Volume 10.6 fL (7.4-10.4); Monocytes # 0.4 10^3/uL (0.2-0.9); Monocytes % 9.4 %; Neutrophils # 1.49 10^3/uL (1.8-7.7); Neutrophils % 38.9 %; Nucleated Red Blood Cells % 0 %; Platelet Count 140 10^3/cmm (130-400); Red Blood Count 3.75 10^6/uL (4.1-5.3); Red Cell Distribution Width 16.1 % (12.1-15.1); White Blood Count 3.8 10^3/uL (4.0-10.0)
[2021-12-03 19:06] LABS: Troponin(5th) Baseline 10 ng/L (0-15)
[2021-12-03] MEDS: gabapentin 300 mg Capsule PO (19:19)
[2021-12-03] MEDS: acetaminophen 500 mg Tablet 1000 MG PO (19:19)
[2021-12-03] MEDS: ketorolac 30 mg/mL INJ 15 MG IVP (19:20)
[2021-12-03 20:30] VITALS: BP 112/64; PULSE 88; RESP 18; O2SAT 94
--- NOTE | 2021-12-03 20:31 | PC.NURSE ---
spoke with Dr Alaniz about rest of cmp not being resulted, he stated that he was ok with discharge, no re draw, due to trop being his concern which was neg.
== END 2021-12-03 20:32 | disposition home or self-care (01) ==
PROVIDERS: Emergency Provider Emergency Medicine
DX: R07.9 Chest pain, unspecified (principal); G62.9 Polyneuropathy, unspecified; J44.9 Chronic obstructive pulmonary disease, unspecified; I10 Essential (primary) hypertension; F17.210 Nicotine dependence, cigarettes, uncomplicated
CPT/HCPCS: 36415; 71045; 84484; 85025; 93005; 96374; 99285; J1885

== ENCOUNTER 2022-04-17 20:01 | Inpatient (IN) | payer MEDICAID, SELFPAY ==
[2022-04-17 20:02] VITALS: BMI 19.8
--- NOTE | 2022-04-17 20:03 | XRR_ITS ---
PROCEDURE INFORMATION: Exam: XR Chest Exam date and time: 04/17/2022 8:25 PM Age: 61 years old Clinical indication: Shortness of breath; Additional info: SOB TECHNIQUE: Imaging protocol: Radiologic exam of the chest. Views: 1 view. COMPARISON: CR (CHEST, ) 12/03/2021 5:43 PM FINDINGS: Lungs: Unremarkable. No consolidation. Pleural spaces: Unremarkable. No pleural effusion. No pneumothorax. Heart/Mediastinum: Unremarkable. No cardiomegaly. Bones/joints: Unremarkable. XR/XR chest 1V portable [id number] IMPRESSION: No acute findings.
--- NOTE | 2022-04-17 20:03 | ECG_ITS ---
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 Measurements Intervals [place] Rate: 89 P: 79 OR: 175 QRS: 79 QRSD: 82 T: 83 QT: 391 QTc: 478 Interpretive Statements SINUS RHYTHM Compared to ECG 12/03/2021 18:01:30 No significant changes Electronically Signed On 04-18-2022 16:59:02 RN [facility] by Yoko Restrepo M.D. [id number] f
--- NOTE | 2022-04-17 20:06 | CTR_ITS ---
PROCEDURE INFORMATION: Exam: CT Head Without Contrast Exam date and time: 04/17/2022 8:42 PM Age: 61 years old Clinical indication: Altered mental status/memory loss; Confusion or disorientation; Patient HX: Arrival via ambulance for AMS. Confusion. ETOH on board. TECHNIQUE: Imaging protocol: Computed tomography of the head without contrast. Radiation optimization: All CT scans at this facility use at least one of these dose optimization techniques: automated exposure control; mA and/or kV adjustment per patient size (includes targeted exams where dose is matched to clinical indication); or iterative reconstruction. COMPARISON: CT head wo con* [id number] 11/18/2021 11:14 PM RADIATION DOSE METRICS: Total DLP (mGy-cm): 1018.08 FINDINGS: Brain: No hemorrhage. No edema. Moderate diffuse cerebral atrophy and mild sequela of chronic small vessel ischemic disease. No mass effect. Cerebral ventricles: No ventriculomegaly. Paranasal sinuses: Visualized sinuses are unremarkable. No fluid levels. Mastoid air cells: Visualized mastoid air cells are well aerated. Bones/joints: Unremarkable. No acute fracture. Soft tissues: Unremarkable. CT/CT head wo con* [id number] IMPRESSION: No acute intracranial abnormality.
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
[2022-04-17] MEDS: multivitamin therapeutic Tablet 1 TAB PO (20:23)
[2022-04-17 20:32] LABS: Basophils # 0.1 10^3/uL (0.0-0.1); Basophils % 1.3 %; Eosinophils % 0.4 %; Hematocrit 46.4 % (42.0-52.0); Hemoglobin 14.4 g/dL (11.7-16.6); Lymphocytes % 22.8 %; Mean Corpuscular Hemoglobin 33.4 pg (28.0-34.0); Mean Corpuscular Volume 107.7 fl (80-94); Mean Platelet Volume 9.3 fL (7.4-10.4); Monocytes # 0.4 10^3/uL (0.2-0.9); Monocytes % 4.2 %; Neutrophils # 6.29 10^3/uL (1.8-7.7); Neutrophils % 70.9 %; Nucleated Red Blood Cells % 0 %; Platelet Count 498 10^3/cmm (130-400); Red Blood Count 4.31 10^6/uL (4.1-5.3); Red Cell Distribution Width 15.8 % (12.1-15.1); White Blood Count 8.9 10^3/uL (4.0-10.0)
[2022-04-17 20:58] LABS: Troponin(5th) Baseline 16 ng/L (0-15)
[2022-04-17 21:06] LABS: Alanine Aminotransferase 15 U/L (0-41); Albumin Level 4.1 g/dL (3.5-5.2); Alkaline Phosphatase 94 U/L (40-130); Blood Urea Nitrogen 10 mg/dL (6-20); Calcium 8.3 mg/dL (8.5-10.5); Carbon Dioxide 27 mmol/L (22-29); Chloride 97 mmol/L (98-107); Globulin 3.2 g/dL (1.3-4.6); Glomerular Filtration Rate 137.9 mL/min (90-130); Glucose 74 mg/dL (65-115); Lipase 11 U/L (13-60); NT Pro B Type Natriuretic Pept 647 pg/mL (0-125); Osmolality Calculated 290 mOsm/kg (285-295); Sodium 141 mmol/L (136-145); Total Bilirubin 0.4 mg/dL (0.15-1.2); Total Protein 7.3 g/dL (6.6-8.7)
[2022-04-17 21:13] LABS: Alcohol Level 419 mg/dL (0-10)
[2022-04-17 21:14] LABS: Anion Gap 21.5 (5-19); Aspartate Amino Transferase 36 U/L (0-40); Potassium 4.5 mmol/L (3.5-5.1)
[2022-04-17 21:36] VITALS: BP 133/78; PULSE 79; RESP 21; O2SAT 93
--- NOTE | 2022-04-17 22:03 | ECG_ITS ---
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 Measurements Intervals [place] Rate: 84 P: 74 NE: 181 QRS: 77 QRSD: 79 T: 80 QT: 410 QTc: 485 Interpretive Statements SINUS RHYTHM Compared to ECG 04/17/2022 20:07:56 No significant changes Electronically Signed On 04-18-2022 17:04:10 DIRECTOR EMERGENCY by Yoko Restrepo M.D. [id number]
[2022-04-17 22:06] VITALS: BP 123/82; PULSE 73; RESP 20; O2SAT 93
[2022-04-17 22:36] VITALS: BP 131/90; PULSE 82; RESP 16; O2SAT 93
[2022-04-17 22:52] LABS: Troponin 5 2HR 14.85 ng/L (0-15)
[2022-04-17 23:06] VITALS: BP 117/79; PULSE 78; RESP 16; O2SAT 95
[2022-04-17 23:30] VITALS: BP 121/73; PULSE 85; RESP 16
[2022-04-17 23:34] LABS: Troponin 5 2HR Delta -1.15 ABS# (0-10)
[2022-04-18] VITALS (152 sets, daily range): BP systolic 109–144; BP diastolic 68–99; PULSE 67–138; RESP 12–30; TEMP 36.6–37.6; O2SAT 74–100; BMI 16.8
--- NOTE | 2022-04-18 05:26 | CTR_ITS ---
PROCEDURE INFORMATION: Exam: CTA Chest With Contrast Exam date and time: 04/18/2022 5:59 AM Age: 61 years old Clinical indication: Shortness of breath; Additional info: SOB TECHNIQUE: Imaging protocol: Computed tomographic angiography of the chest with contrast. 3D rendering (Not supervised by radiologist): MIP and/or 3D reconstructed images were created by the technologist. Radiation optimization: All CT scans at this facility use at least one of these dose optimization techniques: automated exposure control; mA and/or kV adjustment per patient size (includes targeted exams where dose is matched to clinical indication); or iterative reconstruction. Contrast material: OMNI 350; Contrast volume: 55 ml; Contrast route: INTRAVENOUS (IV); COMPARISON: CT angio chest PE protcl [id number] 11/03/2021 4:23 PM RADIATION DOSE METRICS: Total DLP (mGy-cm): 228.41 FINDINGS: Pulmonary arteries: No CTA evidence for proximal segmental or larger pulmonary emboli. Respiratory motion artifact limits definitive exclusion of small peripheral pulmonary emboli. The central pulmonary arteries appear normal. Aorta: No thoracic aortic aneurysm. No thoracic aortic dissection. Trachea: The central airway is normal. Lungs: There is unchanged hyperinflation of lungs with moderate to severe centrilobular emphysema. Small irregular patchy ground-glass opacities are seen in the inferior right middle lobe, right lower lobe lateral basilar segment and in the left lower lobe. Associated tiny left pleural effusion. This is suspicious for multifocal pneumonia. Recommend follow-up until complete resolution. Pleural spaces: No right pleural effusion. No pneumothorax. Heart: The heart size is normal. Normal RV to LV ratio of 1. Unchanged moderate left proximal to mid anterior descending coronary arterial atherosclerotic vascular calcifications are seen. No pericardial effusion. Lymph nodes: No enlarged lymph nodes. Bones/joints: No acute osseous abnormalities. Small degenerative osteophytes and moderate degenerative disc disease changes are seen throughout the thoracic spine. Multiple regions of Schmorl's nodes are seen. There is osteopenia. Old healed mid sternal body fracture is seen. Unchanged multiple old healed bilateral rib fractures are seen. Soft tissues: Unremarkable. Other findings: Moderate fatty infiltration of the liver. Unchanged small hiatal hernia. Stomach not well distended, limiting assessment. CT/CT angio chest PE protcl [id number] IMPRESSION: 1. No CTA evidence for proximal segmental or larger pulmonary emboli. Respiratory motion artifact limits definitive exclusion of small peripheral pulmonary emboli. No thoracic aortic aneurysm or thoracic aortic dissection. 2. Small irregular patchy ground-glass opacities in the inferior right middle lobe, right lower lobe lateral basilar segment and in the left lower lobe. Associated tiny left pleural effusion. This is suspicious for multifocal pneumonia. Recommend follow-up until complete resolution. 3. Unchanged hyperinflation of lungs and moderate to severe centrilobular emphysema. 4. Unchanged small hiatal hernia. COMMENTS: In the absence of a history or active diagnosis of lung cancer, it is recommended that this patient with emphysema be evaluated for enrollment in a low dose CT lung cancer screening program.
--- NOTE | 2022-04-18 05:36 | ECG_ITS ---
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 Measurements Intervals [place] Rate: 81 P: 73 RI: 168 QRS: 81 QRSD: 86 T: 73 QT: 412 QTc: 479 Interpretive Statements SINUS RHYTHM SEPTAL MYOCARDIAL INFARCTION , OF INDETERMINATE AGE [40+ ms Q WAVE IN V1/V2] MODERATE T-WAVE ABNORMALITY, CONSIDER ANTERIOR ISCHEMIA [-0.1+ mV T-WAVE IN V3/V4] Compared to ECG 04/17/2022 22:05:17 Myocardial infarct finding now present T-wave abnormality now present Possible ischemia now present Electronically Signed On 04-18-2022 17:03:37 INFORMATION TECHNOLOGY INTERN by Yoko Restrepo M.D. [email or web address].Chinese Whispers MusicJdguanjiaregency hospital [facility] east.Activism.com/store/[id number]
[2022-04-18] MEDS: ipratropium-albuterol 3 mL Neb INHALATION ×6 (05:39→23:21)
[2022-04-18] MEDS: LORazepam 2 mg/mL INJ 1 mL 1 MG IVP ×2 (05:46→08:19)
--- NOTE | 2022-04-18 05:48 | XRR_ITS ---
PROCEDURE INFORMATION: Exam: XR Chest Exam date and time: 04/18/2022 5:50 AM Age: 61 years old Clinical indication: Shortness of breath; Additional info: SOB TECHNIQUE: Imaging protocol: Radiologic exam of the chest. Views: 1 view. COMPARISON: CR (CHEST, ) 04/17/2022 8:25 PM FINDINGS: Lungs: There are normal lung volumes. Unchanged mild biapical pleuroparenchymal scarring is seen. Age-related interstitial prominence is seen in the lungs. Mild left basilar interstitial opacities are seen with suspected tiny left pleural effusion. This is suspicious for pneumonia. Recommend follow-up until complete resolution. Pleural spaces: No right pleural effusion or pneumothorax. Heart/Mediastinum: Normal heart size. Normal mediastinum. Midline trachea. Bones/joints: No acute osseous abnormalities seen. Multiple old healed bilateral rib fractures are seen. Mild right shoulder degenerative changes are seen. Soft tissues: Multiple external densities are seen overlying the chest, limiting assessment. XR/XR chest 1V portable [id number] IMPRESSION: Mild left basilar interstitial opacities with suspected tiny left pleural effusion. This is suspicious for pneumonia. Recommend follow-up until complete resolution.
--- NOTE | 2022-04-18 05:53 | PC.NURSE ---
Patient blood glucose is 122.
[2022-04-18 06:00] LABS: ABG PCO2 56.5 mmHg (35-45); ABG PH Result 7.39 (7.35-7.45); Arterial Blood Gas Hematocrit 38.9 % (42-52); Base Excess ABG 7.2 mmol/L (-2.0-2.0); Blood Gas Allen Test Pos; Blood Gas Sample Site Radial, right; Blood Gas Sample Type Arterial; HCO3 ABG 33.9 mmol/L (22-26); Oxygen Device NC; PO2 ABG 58.2 mmHg (80.0-100.0)
[2022-04-18 06:02] LABS: Influenza A by IFA negative (Negative); Influenza B by IFA negative (Negative)
[2022-04-18] MEDS: iohexol 350 mg/mL 500 mL Btl (per mL) IV (06:08)
[2022-04-18 06:10] LABS: Alcohol Level 162 mg/dL (0-10)
[2022-04-18 07:21] LABS: Procalcitonin 0.05 ng/mL (0-0.5)
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
[2022-04-18] MEDS: heparin 5,000 unit/mL INJ 1 mL 5000 UNIT SUBCUT ×2 (08:20→17:59)
[2022-04-18] MEDS: metoprolol tartrate 25 mg Tablet PO ×2 (08:20→20:53)
[2022-04-18] MEDS: pantoprazole 40 mg SDV IVP (08:22)
--- NOTE | 2022-04-18 08:44 | ECG_ITS ---
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 Measurements Intervals [place] Rate: 114 P: 0 RI: 0 QRS: 86 QRSD: 77 T: 120 QT: 339 QTc: 468 Interpretive Statements Sinus TACHYCARDIA NONSPECIFIC ST & T-WAVE ABNORMALITY Compared to ECG 04/18/2022 05:36:50 Sinus rhythm no longer present Myocardial infarct finding no longer present Possible ischemia no longer present T-wave abnormality still present Electronically Signed On 04-19-2022 7:12:04 PUMP HOUSE OPERATOR by Yoko Restrepo M.D. [email or web address].[facility].E-Semble/store/[id number]
[2022-04-18] MEDS: morphine 4 mg/mL SDV 1 mL 2 MG IVP ×3 (09:19→20:59)
[2022-04-18] MEDS: folic acid 5 mg/ml MDV 10mL 1 MG IV (09:23)
[2022-04-18] MEDS: levofloxacin-dextrose 5 % 750 MG/150 ML PREMIX 100 MG IV (09:23)
--- NOTE | 2022-04-18 09:37 | PC.PHAR ---
pt states he tries to take his medications everyday but states may not have taken for a month-medications entered are meds the pt states he takes on and off-notes are made in the pharmacy comments
--- NOTE | 2022-04-18 09:42 | USCV_ITS ---
Smiley, Vasyl Age: 61 Gender: M : 1960 Exam Date: 04/18/2022 10:33 Ordering Phys: Aspen Mijares MD Technologist: FRANTZ [place] [facility] [place]: [place] BP: / HR: Rhythm: Sinus Technical Quality: Adequate MEASUREMENTS (Male / Female) Normal Values FINDINGS Left Ventricle Normal left ventricular size and systolic function, EF65%.no regional wall motion abnormalities. Grade I/IV diastolic dysfunction (abnormal relaxation filling pattern), normal to mildly elevated filling pressures. Right Ventricle The right ventricle is normal in size and function. Right Atrium The right atrium is normal in size. Left Atrium The left atrium is normal in size. Mitral Valve Structurally normal mitral valve. Trace mitral valve regurgitation. Aortic Valve Thickened aortic valve. Tricuspid Valve Trace tricuspid valve regurgitation. Normal pulmonary artery peak systolic pressure Pulmonic Valve No gross abnormalities noted Pericardium Normal pericardium without effusion. Aorta Normal ascending aorta dimension. IVC The inferior vena cava appears normal. CONCLUSIONS Normal left ventricular size and systolic function, EF65%.no regional wall motion abnormalities. Grade I/IV diastolic dysfunction (abnormal relaxation filling pattern), normal to mildly elevated filling pressures. Minimally thickened aortic and mitral valves. Trace of mitral and tricuspid regurgitation. There is no pericardial effusion. There are no intracardiac masses. Compared to the study from 11/04/2021, there is no significant change in the 2D findings Dr Karen Villarreal MD FAC (Electronically Signed) Final Date: 18 April 2022 16:39 S
[2022-04-18] MEDS: gabapentin 300 mg Capsule PO ×2 (09:54→17:16)
[2022-04-18] MEDS: lidocaine 2% viscous 15 ML, aluminum-mag hydrox-simethicon 30 ML, sucralfate oral liq 1 GM PO (11:10)
[2022-04-18] MEDS: PHENobarbital 130 mg/mL SDV 1 mL 120 MG IV ×4 (12:31→22:20)
[2022-04-18] MEDS: ondansetron 2 mg/ML SDV 2 mL 4 MG IVP ×2 (12:31→22:20)
--- NOTE | 2022-04-18 12:52 | PC.NURSE ---
Addendum entered by Anders Cardoza RN 04/18/22 18:27: Patient has reported anxiety, nausea, sensitivity to light, and visual hallucinations of nondescript people that he knows aren't there. Nurse administered phenobarbital PRN for alcohol withdrawal and nurse alerted Dr Mijares. Patient brother called in and said that the patient drinks 2 to 3 pints of whiskey per day. Original Note: Patient has reported anxiety, nausea, sensitivity to light, and visual hallucinations of nondescript people that he knows aren't there. Nurse administered phenobarbital PRN for alcohol withdrawal and nurse alerted Dr Mijares. Patient brother called in and said that the patient drinks 203 pints of whiskey per day.
[2022-04-18 14:07] LABS: Adenovirus Not Detected (NOT DETECT); Chlamydia Pneumoniae Not Detected (NOT DETECT); Coronavirus 229E,HKU1,NL63,OC4 Not Detected (NOT DETECT); Human Metapneumovirus Not Detected (NOT DETECT); Human Rhinovirus/Enterovirus Not Detected (NOT DETECT); Influenza A Not Detected (NOT DETECT); Influenza A H1 Not Detected (NOT DETECT); Influenza A H1-2009 Not Detected (NOT DETECT); Influenza A H3 Not Detected (NOT DETECT); Influenza B Not Detected (NOT DETECT); Mycoplasma Pneumoniae Not Detected (NOT DETECT); Parainfluenza Virus Type 1 Not Detected (NOT DETECT); Parainfluenza Virus Type 2 Not Detected (NOT DETECT); Parainfluenza Virus Type 3 Not Detected (NOT DETECT); Parainfluenza Virus Type 4 Not Detected (NOT DETECT); Respiratory Syncytial Virus A Not Detected (NOT DETECT); Respiratory Syncytial Virus B Not Detected (NOT DETECT); SARS-COV-2 Not Detected (NOT DETECT)
[2022-04-18] MEDS: sucralfate 1 gm/10 mL Oral Liq UDC PO ×2 (16:02→20:53)
[2022-04-18] MEDS: nicotine 21 mg Patch 1 PATCH TRANSDERMA (17:58)
--- NOTE | 2022-04-18 18:15 | PC.NURSE ---
Shift summary: Patient has started to have withdrawal symptoms. Brother reports that the patient drinks 2 to 3 pints of whiskey per day. Patient is experiencing visual hallucinations, anxiety, nausea, tremors, and sensitivity to light. Symptoms still present, but show improvement with phenobarbital administration. Patient walked about 12 feet with PT today.
[2022-04-18 21:24] LABS: Glucose Point of Care 291 mg/dL (70-110)
[2022-04-18] MEDS: insulin lispro 100 unit/1 mL SUBCUT (22:18)
[2022-04-18 22:36] LABS: Glucose Point of Care 318 mg/dL (70-110)
[2022-04-19] VITALS (48 sets, daily range): BP systolic 86–139; BP diastolic 60–91; PULSE 67–95; RESP 12–24; TEMP 36.3–38.1; O2SAT 87–100; BMI 17.9
[2022-04-19] MEDS: HYDROcodone-acetaminophen 5-325 mg Tablet 1 TAB PO (00:25)
[2022-04-19] MEDS: PHENobarbital 130 mg/mL SDV 1 mL 120 MG IV ×2 (00:30→01:44)
[2022-04-19] MEDS: morphine 4 mg/mL SDV 1 mL 2 MG IVP ×4 (01:22→16:41)
--- NOTE | 2022-04-19 01:23 | ECG_ITS ---
[facility] Test Date: 2022-04-19 Pat Name: Vasyl Reis Department: Room: [facility] Gender: Male Video System Repairer: : 1960 Requested By: Rere Guy Order Number: [id number] Agustin MD: Karen Villarreal M.D. Measurements Intervals [place] Rate: 86 P: 79 NV: 172 QRS: 77 QRSD: 81 T: 82 QT: 415 QTc: 497 Interpretive Statements SINUS RHYTHM MODERATE T-WAVE ABNORMALITY, CONSIDER ANTERIOR ISCHEMIA [-0.1+ mV T-WAVE IN V3/V4] Compared to ECG 04/18/2022 08:44:58 Possible ischemia now present Supraventricular tachycardia no longer present T-wave abnormality still present Electronically Signed On 04-20-2022 19:46:23 DOOR PULLER by Karen Villarreal M.D. [email or web address].AquarisPLUS Intmerit health biloxiKips Bay Medicalselect [facility].Sonda41/store/OM/[id number]
[2022-04-19 02:25] LABS: Add Urine Culture? No; Bacteria Urine TRACE /hpf; Bilirubin Urine Neg (Negative); Blood Urine Neg (Negative); Glucose Urine UA 4+ (Normal); Ketones Urine Negative (Negative); Leukocyte Esterase Urine Negative (Negative); Nitrate Urine Negative (Negative); Protein Urine Neg (Negative); RBC Urine 0-4 /hpf (0-2); Squamous Epithelial Cell Urine 0-4 /hpf (0-5); Urine Appearance Clear (CLEAR); Urine Color Yellow (Yellow); Urobilinogen Urine Norm (Negative); WBC Urine 0-4 /hpf (0-5); pH Urine 6 (5-7)
[2022-04-19] MEDS: dexmedetomidine 400 MCG in sodium chloride 0.9% (100 ml) 100 ML IV (02:52)
[2022-04-19 03:07] LABS: Troponin(5th) Baseline 7 ng/L (0-15)
--- NOTE | 2022-04-19 03:41 | ECG_ITS ---
[facility] Test Date: 2022-04-19 Pat Name: Vasyl Reis Department: Room: [facility] Gender: Male Vascular Surgeon: : 1960 Requested By: Rere Guy Order Number: [id number] Agustin MD: Karen Villarreal M.D. Measurements Intervals [place] Rate: 85 P: 84 ND: 220 QRS: 79 QRSD: 93 T: 82 QT: 433 QTc: 516 Interpretive Statements SINUS RHYTHM WITH FIRST DEGREE AV BLOCK WITH OCCASIONAL VENTRICULAR PREMATURE COMPLEXES LEFT ATRIAL ENLARGEMENT [-0.15mV P-WAVE IN V1/V2] PROLONGED QT INTERVAL Compared to ECG 04/19/2022 01:23:26 Ventricular premature complex(es) now present First degree AV block now present Atrial abnormality now present Prolonged QT interval now present T-wave abnormality no longer present Possible ischemia no longer present Electronically Signed On 04-20-2022 20:12:25 ANALYST BUSINESS ANALYSIS by Karen Villarreal M.D. [email or web address].[facility].Eridan Technology/store/[id number]
[2022-04-19] MEDS: ipratropium-albuterol 3 mL Neb INHALATION ×5 (03:53→20:26)
[2022-04-19 05:48] LABS: Basophils % 0.1 %; Hemoglobin 11.3 g/dL (11.7-16.6); Lymphocytes # 0.4 10^3/uL (0.8-4.8); Lymphocytes % 4.2 %; Mean Corpuscular HGB Conc 32.3 g/dL (30.0-36.0); Mean Corpuscular Hemoglobin 32.7 pg (28.0-34.0); Mean Corpuscular Volume 101.2 fl (80-94); Mean Platelet Volume 10.1 fL (7.4-10.4); Monocytes # 0.5 10^3/uL (0.2-0.9); Monocytes % 5.2 %; Neutrophils # 8.28 10^3/uL (1.8-7.7); Neutrophils % 90.1 %; Nucleated Red Blood Cells % 0 %; Platelet Count 397 10^3/cmm (130-400); Red Blood Count 3.46 10^6/uL (4.1-5.3); Red Cell Distribution Width 15.4 % (12.1-15.1); White Blood Count 9.2 10^3/uL (4.0-10.0)
[2022-04-19 06:04] LABS: Troponin 5 2HR 9.84 ng/L (0-15)
[2022-04-19 06:36] LABS: Anion Gap 15.4 (5-19); Blood Urea Nitrogen 10 mg/dL (6-20); Calcium 8.6 mg/dL (8.5-10.5); Carbon Dioxide 33 mmol/L (22-29); Chloride 89 mmol/L (98-107); Glomerular Filtration Rate 170.2 mL/min (90-130); Glucose 221 mg/dL (65-115); Osmolality Calculated 282 mOsm/kg (285-295); Potassium 4.4 mmol/L (3.5-5.1); Sodium 133 mmol/L (136-145)
[2022-04-19] MEDS: sucralfate 1 gm/10 mL Oral Liq UDC PO ×4 (06:46→21:19)
[2022-04-19] MEDS: heparin 5,000 unit/mL INJ 1 mL 5000 UNIT SUBCUT ×2 (06:46→17:31)
[2022-04-19 06:58] LABS: Troponin 5 2HR Delta 2.84 ABS# (0-10)
--- NOTE | 2022-04-19 07:15 | ECG_ITS ---
[facility] Test Date: 2022-04-19 Pat Name: Vasyl Reis Department: Room: [facility] Gender: Male Call Or Contact Centre Manager: : 1960 Requested By: Rere Guy Order Number: [id number] Agustin MD: Karen Villarreal M.D. Measurements Intervals [place] Rate: 69 P: 85 RI: 182 QRS: 68 QRSD: 92 T: 75 QT: 466 QTc: 501 Interpretive Statements SINUS RHYTHMjavascript:perform('study_confirm'); PROLONGED QT INTERVAL Compared to ECG 04/19/2022 03:41:22 Ventricular premature complex(es) no longer present First degree AV block no longer present Atrial abnormality no longer present Electronically Signed On 04-20-2022 20:16:28 BOX NAILER by Karen Villarreal M.D. [email or web address].Dynamics Researchpacific[facility].ELDR Media/store/[id number]
--- NOTE | 2022-04-19 07:26 | PC.NURSE ---
Physician Communication At 2109, patient's blood glucose 291, additionally patient complaining of frequent urination urges. Dr. Guy contacted and order received for a SubQ low sliding scale insulin dose TIDWM with first dose starting this evening as well as a U/A and bladder scan. While discussing patient care, lack of antibiotic use also mentioned; telephone order received to restart d/c'd order for levofloxacin Q24Hr. Bladder scan performed; 362 ml of urine remaining in bladder. Upon asking patient if he could urinate, 350 ml of urine voided in urinal. Dr. Guy notified of results. At 110, patient complaining of chest pain that he states is different from before, it moved on me. It's now more to the left. Patient not diaphoretic, no ekg changes noted, nausea present but unchanged. Dr. Guy notified and order received for troponin/ekg series. PRN Morphine administered per JUN. Dr. Guy also notified of persistent alcohol withdrawal symptoms treated with repeated doses of phenobarbitol. Order received to speak with pharmacy to ask about the maximum amount of phenobarbitol allowed in 24 hrs. Josh with pharmacy called; max dosage for phenobarbitol is 15mg/kg in 24 hours. With patient weighing 57.7 kg, only 7 doses of 120 mg IV phenobarbitol allowed in [address] Guy notified at 220 and order received to start precedex drip for symptoms. See MAR for medication administration.
[2022-04-19 07:59] LABS: Glucose Point of Care 181 mg/dL (70-110)
[2022-04-19 08:54] LABS: Troponin 5 6HR 8.08 ng/L (0-15)
[2022-04-19] MEDS: insulin lispro 100 unit/1 mL SUBCUT ×3 (09:47→17:38)
[2022-04-19] MEDS: pantoprazole 40 mg SDV IVP (09:47)
[2022-04-19] MEDS: nicotine 21 mg Patch 1 PATCH TRANSDERMA (09:48)
[2022-04-19] MEDS: gabapentin 300 mg Capsule PO ×2 (09:48→17:21)
[2022-04-19] MEDS: levofloxacin-dextrose 5 % 750 MG/150 ML PREMIX 100 MG IV (09:49)
[2022-04-19] MEDS: folic acid 5 mg/ml MDV 10mL 1 MG IV (10:08)
[2022-04-19 10:33] LABS: Troponin 5 6HR Delta 1.08 ng/L (0-12)
--- NOTE | 2022-04-19 11:53 | PM.PN ---
Subjective Subjective: This morning patient was calm and cooperative Last night required sedatives for his alcohol withdrawal symptoms I have increased phenobarbital to 240 mg nightly hours if needed I have told ICU nurse that We could do in 1 day could be around 1100 mg Patient has mild tremors, hallucination improved with use of Precedex Vitals/I&O/Wt Last Vital Signs Temp 97.4 F L 04/19/22 10:38 Pulse 79 04/19/22 11:31 Resp 16 04/19/22 11:25 BP 94/67 04/19/22 11:00 Pulse Ox 92 04/19/22 11:25 O2 Del Method 04/19/22 11:25 O2 Flow Rate 3 04/19/22 11:25 04/18/22 04/19/22 04/19/22 22:59 06:59 14:59 Intake Total 920 / 2320 406.267 / 406.267 Output Total 735 / 1310 875 / 2185 Balance 185 / 1010 -875 / 135 406.267 / 406.267 Weight last 48 hrs Weight 61.598 kg Weight 57.969 kg Weight 68.039 kg Physical Exam Narrative: Hemodynamically stable Awake and alert Mild tremors on clinical exam Hallucination improved Cooperative and calm Autonomic dysfunction Severe neuropathy of lower extremities Euvolemic Currently on 3 L nasal cannula Abdomen soft Data 04/19/22 04:25 04/19/22 04:25 A&P Assessment and plan (1) Alcohol intoxication: (2) Chest pain: (3) Acute respiratory failure with hypoxemia: (4) Gastritis: Plan Alcohol withdrawal symptoms started last night Currently on phenobarbital Maximum dose in 1 day could be 1100 mg Continue Precedex I do suspect autonomic dysfunction Currently doing well on 3 L nasal cannula No recurrence of chest pain No ischemic or infarctive changes on EKG Responded well to GI cocktail for alcohol-related gastritis Continue thiamine and folic acid Switch antibiotics to p.o. regimen, CT scan consistent with pneumonia, no significant leukocytosis, afebrile, Echo unremarkable Full code Dysphagia diet Patient is not sure if he would agree for an rehab at the time of discharge Attestations Medical Necessity Statement*: Continue ICU management Time Spent in Patient Care: 35 Critical Care Time: 35 Coding Level of Care Code Acute Maintenance Director for [facility] Fwd Diagnoses Alcohol intoxication F10.929 Chest pain R07.9 Acute respiratory failure with hypoxemia J96.01 Gastritis K29.70
[2022-04-19 12:01] LABS: Glucose Point of Care 177 mg/dL (70-110)
[2022-04-19] MEDS: lidocaine 2% viscous 15 ML, aluminum-mag hydrox-simethicon 30 ML, sucralfate oral liq 1 GM PO (14:10)
[2022-04-19] MEDS: PHENobarbital 130 mg/mL SDV 1 mL 240 MG IV ×2 (16:41→21:19)
[2022-04-19 17:36] LABS: Glucose Point of Care 147 mg/dL (70-110)
--- NOTE | 2022-04-19 18:18 | PC.NURSE ---
Patient is complaining of pain to his penis and bladder related to the alvarenga catheter. Yelling out in pain. NUrse administered morphine for pain relief, but it was ineffective. Patient demands removal of urinary catheter. Nurse explained that the reason for placement was for urinary retention. If retention occurs again, he will likely require additional straight catheterizations, and multiple catheterizations would put him at an increase risk of an infection. Patient still wants catheter out. Nurse removed alvarenga catheter.
--- NOTE | 2022-04-19 18:23 | PC.NURSE ---
SHift SUmmary: Uneventful shift. Patient was up to a chair for about half of the day and ambulated 50 feet with physical therapy. Alvarenga catheter was placed due to urinary retention, but patient was unable to tolerate it so it was removed. Patient is still on precedex. required 1 dose of phenobarbital for withdrawal symptoms. Urine output has been 1100mL through the alvarenga catheter. patient has been unable to void without a alvarenga catheter.
[2022-04-19 21:18] LABS: Glucose Point of Care 121 mg/dL (70-110)
[2022-04-19] MEDS: ondansetron 2 mg/ML SDV 2 mL 4 MG IVP (21:52)
[2022-04-20] VITALS (54 sets, daily range): BP systolic 82–139; BP diastolic 51–95; PULSE 62–150; RESP 16–18; TEMP 36.6–38.1; O2SAT 87–100; BMI 17.8
[2022-04-20] MEDS: dexmedetomidine 400 MCG in sodium chloride 0.9% (100 ml) 100 ML 6.03 MCG IV (00:55)
[2022-04-20] MEDS: ipratropium-albuterol 3 mL Neb INHALATION ×5 (03:08→20:02)
[2022-04-20] MEDS: morphine 4 mg/mL SDV 1 mL 2 MG IVP ×2 (05:06→20:37)
[2022-04-20] MEDS: ondansetron 2 mg/ML SDV 2 mL 4 MG IVP (05:13)
[2022-04-20 05:17] LABS: Alanine Aminotransferase 12 U/L (0-41); Albumin Level 3.2 g/dL (3.5-5.2); Alkaline Phosphatase 63 U/L (40-130); Anion Gap 11.3 (5-19); Aspartate Amino Transferase 24 U/L (0-40); Blood Urea Nitrogen 8 mg/dL (6-20); Calcium 8.9 mg/dL (8.5-10.5); Carbon Dioxide 34 mmol/L (22-29); Chloride 96 mmol/L (98-107); Globulin 3.1 g/dL (1.3-4.6); Glomerular Filtration Rate 170.2 mL/min (90-130); Glucose 100 mg/dL (65-115); Osmolality Calculated 282 mOsm/kg (285-295); Potassium 4.3 mmol/L (3.5-5.1); Sodium 137 mmol/L (136-145); Total Bilirubin 0.3 mg/dL (0.15-1.2); Total Protein 6.3 g/dL (6.6-8.7)
[2022-04-20] MEDS: heparin 5,000 unit/mL INJ 1 mL 5000 UNIT SUBCUT ×2 (06:03→17:44)
[2022-04-20] MEDS: levoFLOXacin 750 mg Tablet PO (06:05)
[2022-04-20] MEDS: sucralfate 1 gm/10 mL Oral Liq UDC PO ×4 (06:05→20:38)
--- NOTE | 2022-04-20 07:20 | XRR_ITS ---
PROCEDURE INFORMATION: Exam: XR Chest Exam date and time: 04/20/2022 11:14 AM Age: 61 years old Clinical indication: Shortness of breath; Additional info: Pna TECHNIQUE: Imaging protocol: Radiologic exam of the chest. Views: 1 view. COMPARISON: 1. CR (CHEST, ) 04/18/2022 5:[address] angio chest PE protcl [id number] 04/18/2022 5:59 AM FINDINGS: Lungs: Persistent mild left basilar ground-glass density. Previously CT noted consolidation in the right lung not radiographically evident. Pleural spaces: Small left-sided pleural effusion similar to prior exam. Heart/Mediastinum: The cardiomediastinal silhouette is within normal limits. Bones/joints: Chronic deformities in the posterior bilateral ribs. XR/XR chest 1V portable [id number] IMPRESSION: 1. No significant change from prior chest radiograph. 2. Persistent left basilar consolidation concerning for pneumonia.
[2022-04-20 08:14] LABS: Glucose Point of Care 96 mg/dL (70-110)
[2022-04-20] MEDS: nicotine 21 mg Patch 1 PATCH TRANSDERMA (08:59)
[2022-04-20] MEDS: pantoprazole DR 40 mg Tablet PO (08:59)
[2022-04-20] MEDS: gabapentin 300 mg Capsule PO ×2 (08:59→17:17)
[2022-04-20 09:14] LABS: Lactate (Lactic Acid level) 1.2 mmol/L (0.5-2.2)
[2022-04-20 11:17] LABS: Glucose Point of Care 109 mg/dL (70-110)
--- NOTE | 2022-04-20 11:37 | PM.PN ---
Subjective Subjective: Febrile events noted Requested chest x-ray, UA, blood cultures Change levofloxacin to IV antibiotics Patient is experiencing productive cough, sputum culture obtained Patient is endorsing dysuria He has been experiencing visual hallucination, stating that he is seeing Pastor people with a donkey This morning he was pleasant and cooperative very communicative I asked ICU nurse to lower his Precedex 2.1 and 0.4 Adequate urine output He removed his Orourke catheter yesterday Vitals/I&O/Wt Last Vital Signs Temp 98 F 04/20/22 04:30 Pulse 86 04/20/22 11:35 Resp 16 04/20/22 11:30 BP 85/51 04/20/22 09:30 Pulse Ox 94 04/20/22 11:30 O2 Del Method 04/20/22 11:30 O2 Flow Rate 4 04/20/22 11:30 04/19/22 04/20/22 04/20/22 22:59 06:59 14:59 Intake Total 939.319 / 2095.586 337.386 / 2432.972 400 / 400 Output Total 875 / 1175 550 / 1725 Balance 64.319 / 920.586 -212.614 / 707.972 400 / 400 Weight last 48 hrs Weight 61.235 kg Weight 61.598 kg Physical Exam Narrative: Patient is sitting comfortably in bed Currently on 4 L nasal cannula Bilateral breath sounds with slight rhonchi otherwise clear to auscultation Abdomen soft Lower extremity no edema Very talkative Hemoglobin PERRLA GCS 15 Nonfocal neuro exam Urinary Catheter Management: Orourke: Cath Placed During This Visit: yes Urinary Catheter Date of Insertion: 04/19/22 Urinary Catheter Time of Insertion: 14:20 Data 04/19/22 04:25 04/20/22 04:15 Micro: Microbiology 04/18/22 09:20 Gram Stain - Final Sputum - Expectorated Sputum Sputum Culture - Final 04/18/22 21:30 Urine Culture - Final Urine,Voided 04/20/22 08:25 Blood Culture - Preliminary Blood SPECIMEN COLLECTED 04/20/22 08:20 Blood Culture - Preliminary Blood SPECIMEN COLLECTED A&P Assessment and plan (1) Chest pain: (2) Alcohol intoxication: (3) Acute respiratory failure with hypoxemia: (4) Gastritis: (5) Community acquired pneumonia: (6) Visual hallucinations: (7) Neuropathy, alcoholic: Plan Alcohol-related gastritis, patient's chest pain is reproducible He can get Tylenol or ibuprofen as needed basis Febrile events, requesting UA, blood culture, chest x-ray today, change antibiotics to IV He was x-ray consistent with community-acquired pneumonia he was getting p.o. Levaquin Acute hypoxia requiring 4 L nasal cannula He is not septic Patient is endorsing dysuria Sputum sample sent, productive cough Related to poor showing multi marianne Alcohol-related withdrawal continue phenobarbital and use of Precedex UTI: I would use ceftriaxone and doxycycline for now Signs of dehydration: Improving Visual hallucination related to alcohol withdrawal Alcohol-related neuropathy added gabapentin Full code Dysphagia diet because of poor dentition Continue thiamine folic acid Attestations Medical Necessity Statement*: Continue ICU management because of risk of withdrawals Critical Care Time: 30 Coding Level of Care Code Acute Desktop Publishing Associate for [facility] Fwd Diagnoses Chest pain R07.9 Alcohol intoxication F10.929 Acute respiratory failure with hypoxemia J96.01 Gastritis K29.70 Community acquired pneumonia J18.9 Visual hallucinations R44.1 Neuropathy, alcoholic G62.1
[2022-04-20] MEDS: ketorolac 10 mg Tablet PO (13:07)
[2022-04-20 16:37] LABS: Glucose Point of Care 121 mg/dL (70-110)
[2022-04-20] MEDS: doxycycline 100 mg Tablet PO (17:17)
--- NOTE | 2022-04-20 17:50 | PC.NURSE ---
Shift Summary: patient had 3 or 4 episodes of SVT with HR 140s to 150s and associated angina but episodes resolved without intervention dr. Mijares aware, patient only voided approximately 300 but refused foly or straight cath
[2022-04-20 20:50] LABS: Glucose Point of Care 118 mg/dL (70-110)
[2022-04-20 22:47] LABS: Glucose Point of Care 122 mg/dL (70-110)
[2022-04-21] VITALS (43 sets, daily range): BP systolic 81–143; BP diastolic 54–90; PULSE 59–110; RESP 4–27; TEMP 36.6–36.8; O2SAT 79–100; BMI 17.8
[2022-04-21] MEDS: dexmedetomidine 400 MCG in sodium chloride 0.9% (100 ml) 100 ML 6.03 MCG IV (00:10)
[2022-04-21 03:18] LABS: Basophils % 0.3 %; Eosinophils % 0.6 %; Hematocrit 35.8 % (42.0-52.0); Hemoglobin 11.2 g/dL (11.7-16.6); Lymphocytes # 1.4 10^3/uL (0.8-4.8); Lymphocytes % 19.8 %; Mean Corpuscular HGB Conc 31.3 g/dL (30.0-36.0); Mean Corpuscular Hemoglobin 32.9 pg (28.0-34.0); Mean Corpuscular Volume 105.3 fl (80-94); Mean Platelet Volume 10.2 fL (7.4-10.4); Monocytes # 0.5 10^3/uL (0.2-0.9); Monocytes % 6.4 %; Neutrophils # 5.21 10^3/uL (1.8-7.7); Neutrophils % 72.5 %; Nucleated Red Blood Cells % 0 %; Platelet Count 261 10^3/cmm (130-400); Red Cell Distribution Width 15.9 % (12.1-15.1); White Blood Count 7.2 10^3/uL (4.0-10.0)
[2022-04-21] MEDS: ipratropium-albuterol 3 mL Neb INHALATION ×3 (03:31→14:47)
[2022-04-21 03:37] LABS: Add Urine Microscopic? NO; Charge for UA Resulting for Rev
[2022-04-21 03:48] LABS: Bilirubin Urine Neg (Negative); Blood Urine Neg (Negative); Glucose Urine UA Norm (Normal); Ketones Urine Negative (Negative); Leukocyte Esterase Urine Negative (Negative); Nitrate Urine Negative (Negative); Protein Urine Neg (Negative); Sulfosalicylic Acid Urine Negative (Negative); Urine Appearance Clear (CLEAR); Urine Color Light yellow (Yellow); Urobilinogen Urine Neg (Negative); pH Urine 9 (5-7)
[2022-04-21 03:49] LABS: Blood Urea Nitrogen 12 mg/dL (6-20); Calcium 8.9 mg/dL (8.5-10.5); Carbon Dioxide 31 mmol/L (22-29); Chloride 98 mmol/L (98-107); Glomerular Filtration Rate 115.4 mL/min (90-130); Glucose 93 mg/dL (65-115); Magnesium 1.3 mg/dL (1.7-2.3); Osmolality Calculated 279 mOsm/kg (285-295); Phosphorus 2.2 mg/dL (2.5-4.5); Sodium 135 mmol/L (136-145)
[2022-04-21] MEDS: heparin 5,000 unit/mL INJ 1 mL 5000 UNIT SUBCUT ×2 (05:42→17:47)
[2022-04-21] MEDS: sucralfate 1 gm/10 mL Oral Liq UDC PO ×4 (06:58→20:42)
[2022-04-21 07:59] LABS: Glucose Point of Care 97 mg/dL (70-110)
[2022-04-21] MEDS: nicotine 21 mg Patch 1 PATCH TRANSDERMA (08:05)
[2022-04-21] MEDS: pantoprazole DR 40 mg Tablet PO (08:05)
[2022-04-21] MEDS: gabapentin 300 mg Capsule PO ×2 (08:05→17:44)
[2022-04-21] MEDS: doxycycline 100 mg Tablet PO ×2 (08:05→17:44)
[2022-04-21] MEDS: morphine 4 mg/mL SDV 1 mL 2 MG IVP ×3 (08:06→21:11)
[2022-04-21] MEDS: cefTRIAXone 1,000 MG in sodium chloride 0.9% (plus) 50 ML 100 MG IV (08:07)
--- NOTE | 2022-04-21 08:53 | XR_ITS ---
WS: [id number] XR KUB portable [id number] REASON FOR EXAM: abdominal pain FINDINGS: No no free air or retroperitoneal air identified. Moderate/significant gaseous distention of the stomach which appears to have been present on the ches t x-ray the previous day. Moderate amount of fecal material throughout the colon including the rectum. No significant small bow el distention. XR/XR KUB portable [id number] IMPRESSION: Moderate to significant gaseous distention of the stomach as above.
--- NOTE | 2022-04-21 10:17 | PM.PN ---
Subjective Subjective: Patient is complaining of constipation Requested KUB On Precedex 0.3 On 2 L, No overnight events, no fever Vitals/I&O/Wt Last Vital Signs Temp 98 F 04/21/22 02:30 Pulse 78 04/21/22 10:00 Resp 16 04/21/22 10:00 BP 103/65 04/21/22 10:00 Pulse Ox 95 04/21/22 10:00 O2 Del Method 04/21/22 10:00 O2 Flow Rate 2 04/21/22 10:00 04/20/22 04/21/22 04/21/22 22:59 06:59 14:59 Intake Total 404 / 804 33.969 / 837.969 665.293 / 665.293 Output Total 700 / 700 625 / 1325 700 / 700 Balance -296 / 104 -591.031 / -487.031 -34.707 / -34.707 Weight last 48 hrs Weight 61.235 kg Weight 61.235 kg Physical Exam Narrative: Abdomen was tender to palpation around umbilicus Awake and alert Currently on 2 L nasal cannula Hallucination improved Pleasant and cooperative Euvolemic Lower extremity no edema Paresthesia of lower limbs No active emesis Awake and alert Nonfocal neuro exam Urinary Catheter Management: Orourke: Cath Placed During This Visit: yes Urinary Catheter Date of Insertion: 04/19/22 Urinary Catheter Time of Insertion: 14:20 Data 04/21/22 02:27 04/21/22 02:27 Micro: Microbiology 04/20/22 08:25 Blood Culture - Preliminary Blood NEGATIVE TO DATE 04/20/22 08:20 Blood Culture - Preliminary Blood NEGATIVE TO DATE 04/18/22 09:20 Gram Stain - Final Sputum - Expectorated Sputum Sputum Culture - Final 04/18/22 21:30 Urine Culture - Final Urine,Voided A&P Assessment and plan (1) Neuropathy, alcoholic: (2) Visual hallucinations: (3) Community acquired pneumonia: (4) Chest pain: (5) Acute respiratory failure with hypoxemia: (6) Gastritis: (7) Constipation: Plan Patient is doing well Turned off Precedex today We want to transfer him to [facility] today Most likely patient will need rehab Patient has significant alcohol related neuropathy No fever last night He has been started on ceftriaxone azithromycin for pneumonia No bowel movement since admission Patient is stating that he has had no urge to pass gas as well Requested KUB which showed moderate gaseous distention of stomach Continue thiamine folic acid, ceftriaxone and azithromycin Acute hypoxia requiring 2 L of oxygen Gastritis continue Protonix Constipation: Bowel regimen added Alcohol withdrawal symptoms: Improving Hallucination improved Full code Dysphagia diet PT evaluation Attestations Medical Necessity Statement*: transfer to [facility] Time Spent in Patient Care: 40 Coding Level of Care Code Acute Machine Guide Base Winder for [facility] Fwd Diagnoses Neuropathy, alcoholic G62.1 Visual hallucinations R44.1 Community acquired pneumonia J18.9 Chest pain R07.9 Acute respiratory failure with hypoxemia J96.01 Gastritis K29.70 Constipation K59.00
[2022-04-21] MEDS: magnesium hydroxide 30 mL UDC 15 ML PO (10:56)
[2022-04-21] MEDS: sennosides-docusate Tablet 2 TAB PO (10:56)
[2022-04-21] MEDS: PHENobarbital 130 mg/mL SDV 1 mL 240 MG IV (11:24)
--- NOTE | 2022-04-21 12:07 | PC.CHAP ---
Pastoral Care Encounter/Spiritual Assessment Type of Contact [] Declined clinic business manager visit [] Patient/Family/Request visit [] Outpatient visit [] Follow-up visit [] Physician referral [] Code/Alert [x] Routine visit [] Staff referral [] Actively dying [] Patient sleeping [] Family support [] [] Out of room [] Palliative care [] [] Receiving care in room [] Pre-surgical visit [] Trauma [] Long length of stay x] ICU visit [] Other: Relational/Emotional Strength [] Patient feels connected with others/family/visitors/staff [] Distress [] Loneliness/isolation [] Abandonment Spirituality of Patient [] Person of Keisha [] Attends Mosque of their Keisha [] Believes in Prayer [] Reads Bible or Yazdanism materials [] There are Spiritual issues to be addressed Business Intelligence Manager Interventions [x] Prayer [] Active listening [] Non-anxious presence [] Spiritual/emotional support [] Crisis/trauma care [] Spiritual counseling [] Bereavement support [] Provided bereavement packet [] Provided Bible/devotional materials [] Provided toy/stuffed animal, coloring book to patient or family member [] Provided Communion [] Anointing/Pleasant Unity [] Salvation [x] Completed spiritual assessment [] Other: Impact on Illness or Injury [] Angry [] Fearful [] Anxious [] Often cries [] Exhaustion [] Unable to work [] Unable to attend muslim [] Unable to walk/stand [] Unable to read [] Unable to drive [] Unable to eat/drink [] Unable to sleep [] Unable to be with family [] Patient intubated [] Other: Summary Time spent with patient
[2022-04-21 12:22] LABS: Glucose Point of Care 107 mg/dL (70-110)
[2022-04-21 14:54] LABS: Add Urine Microscopic? NO; Charge for UA Resulting for Rev
[2022-04-21 15:17] LABS: Bilirubin Urine Neg (Negative); Blood Urine Neg (Negative); Glucose Urine UA Norm (Normal); Ketones Urine Negative (Negative); Leukocyte Esterase Urine Negative (Negative); Nitrate Urine Negative (Negative); Protein Urine Neg (Negative); Specific Gravity, Urine 1.015 (1.005-1.030); Sulfosalicylic Acid Urine Negative (Negative); Urine Appearance Clear (CLEAR); Urine Color Yellow (Yellow); Urobilinogen Urine Neg (Negative); pH Urine 9 (5-7)
[2022-04-21 17:40] LABS: Glucose Point of Care 98 mg/dL (70-110)
[2022-04-21] MEDS: phosphorus 250 mg Tablet PO (17:44)
--- NOTE | 2022-04-21 18:32 | PC.NURSE ---
Report called to BRETT Alexander. No further questions. Patient and belongings taken to room 258-1
[2022-04-21 22:23] LABS: Glucose Point of Care 122 mg/dL (70-110)
[2022-04-21] MEDS: LORazepam 2 mg/mL INJ 1 mL 1 MG IVP (23:24)
[2022-04-22] VITALS (8 sets, daily range): BP systolic 122–156; BP diastolic 59–93; PULSE 81–106; RESP 17–20; TEMP 36.5–36.8; O2SAT 91–96
--- NOTE | 2022-04-22 00:36 | PC.NURSE ---
This nurse has educated the patient many times to not get up by their self because they are at an increase risk of falling. The patient has verbalized understanding every time and yet refuses to takes this nurse's advise. The patient started ambulating by their self upon rounding and this nurse stayed with the patient and got them settled back into bed. They were re educated to not get up from bed without a staff member. The patient did verbalize understanding again. Patient stated if I fall, I am going to tell everyone that you knew nothing about it and that it is not your fault This nurse explained that he wanted the patient to be safe above all else.
--- NOTE | 2022-04-22 00:50 | PC.NURSE ---
Patients bed alarm has been reset.
[2022-04-22] MEDS: sucralfate 1 gm/10 mL Oral Liq UDC PO ×2 (06:01→11:31)
[2022-04-22] MEDS: heparin 5,000 unit/mL INJ 1 mL 5000 UNIT SUBCUT (06:01)
[2022-04-22 06:36] LABS: Glucose Point of Care 78 mg/dL (70-110)
[2022-04-22 06:54] LABS: Anion Gap 13.1 (5-19); Blood Urea Nitrogen 11 mg/dL (6-20); Calcium 8.7 mg/dL (8.5-10.5); Carbon Dioxide 30 mmol/L (22-29); Chloride 100 mmol/L (98-107); Glomerular Filtration Rate 115.4 mL/min (90-130); Glucose 92 mg/dL (65-115); Osmolality Calculated 285 mOsm/kg (285-295); Potassium 5.1 mmol/L (3.5-5.1); Sodium 138 mmol/L (136-145)
[2022-04-22] MEDS: nicotine 21 mg Patch 1 PATCH TRANSDERMA (08:44)
[2022-04-22] MEDS: phosphorus 250 mg Tablet PO (08:44)
[2022-04-22] MEDS: gabapentin 300 mg Capsule PO (08:44)
[2022-04-22] MEDS: pantoprazole DR 40 mg Tablet PO (08:44)
[2022-04-22] MEDS: sennosides-docusate Tablet 2 TAB PO (08:44)
[2022-04-22] MEDS: cefTRIAXone 1,000 MG in sodium chloride 0.9% (plus) 50 ML 100 MG IV (08:45)
[2022-04-22] MEDS: doxycycline 100 mg Tablet PO (08:50)
[2022-04-22] MEDS: ipratropium-albuterol 3 mL Neb INHALATION (09:33)
--- NOTE | 2022-04-22 10:51 | PM.PN ---
Subjective Subjective: This morning patient is endorsing feeling better He was not wearing oxygen saturating well Will desaturate to 91% Patient is stating that he will not be able to go home because his brother has been admitted to the hospital He might think about going to intermediate for rehab [facility] most likely will accept him as per pillowcase folder No BM yet, patient stating he might be able to go in next few hours, nurse updated to use enema if needed Vitals/I&O/Wt Last Vital Signs Temp 98.3 F 04/22/22 07:44 Pulse 96 04/22/22 09:36 Resp 20 H 04/22/22 09:36 BP 125/85 04/22/22 07:44 Pulse Ox 91 04/22/22 09:36 O2 Del Method 04/22/22 09:36 O2 Flow Rate 2 04/22/22 08:00 04/21/22 04/22/22 04/22/22 22:59 06:59 14:59 Intake Total 480 / 1440.162 440 / 440 Output Total 1150 / 2350 750 / 3100 500 / 500 Balance -670 / -909.838 -750 / -1659.838 -60 / -60 Weight last 48 hrs Weight 61.598 kg Weight 61.235 kg Physical Exam Narrative: Awake and alert Abdomen soft No active emesis Doing well on room air Pleasant cooperative Looks well-hydrated Lower extremity neuropathy present No signs of edema S1, S2 Urinary Catheter Management: Orourke: Cath Placed During This Visit: yes Urinary Catheter Date of Insertion: 04/19/22 Urinary Catheter Time of Insertion: 14:20 Data 04/21/22 02:27 04/22/22 05:59 Micro: Microbiology 04/20/22 08:25 Blood Culture - Preliminary Blood NEGATIVE TO DATE 04/20/22 08:20 Blood Culture - Preliminary Blood NEGATIVE TO DATE A&P Assessment and plan (1) Constipation: (2) Neuropathy, alcoholic: (3) Visual hallucinations: (4) Community acquired pneumonia: (5) Chest pain: (6) Acute respiratory failure with hypoxemia: (7) Gastritis: Plan No need of labs for tomorrow Alcohol-related withdrawal symptoms improved Alcohol-related neuropathy persistent Truncal ataxia Wernicke's encephalopathy: Resolved Continue thiamine and folic acid Continue antibiotics for community-acquired pneumonia Afebrile Visual hallucination: Resolved Acute hypoxia: Resolved currently doing well on room air Awaiting placement to [facility] likely tomorrow Constipation: No BM in last 10 days, will do enema if no BM today Attestations Medical Necessity Statement*: Continue medical management Time Spent in Patient Care: 30 Coding Level of Care Code Acute Vehicle Dynamics Engineer for [facility] Fwd Diagnoses Constipation K59.00 Neuropathy, alcoholic G62.1 Visual hallucinations R44.1 Community acquired pneumonia J18.9 Chest pain R07.9 Acute respiratory failure with hypoxemia J96.01 Gastritis K29.70
--- NOTE | 2022-04-22 10:59 | P.DS_ITS ---
Discharge Providers Date of Admission: 04/20/22 13:11 Date of Discharge: April 22, 2022 Attending Provider at Admission: Rere Guy MD Attending Provider at Discharge: Aspen Mijares MD Diagnoses at Discharge Discharge Diagnosis (1) Constipation: Status: Acute (2) Neuropathy, alcoholic: Status: Acute (3) Visual hallucinations: Status: Acute (4) Community acquired pneumonia: Status: Acute (5) Chest pain: Status: Acute (6) Acute respiratory failure with hypoxemia: Status: Acute (7) Gastritis: Status: Acute Reason for Visit Reason for Visit: CP, SOB Hospital Course Hospital Course 61 male who was admitted for alcohol intoxication, community-acquired pneumonia acute hypoxia. He was admitted to ICU, patient experienced withdrawal symptoms with visual hallucination, tremors, required phenobarbital and Precedex. We were able to wean him off oxygen to room air successfully with use of antibiotics. Sputum culture showing gram-positive cocci, it has not been finalized however his fever subsided with use of ceftriaxone and doxycycline. At the time of discharge she will get cefpodoxime and doxycycline regimen. He is not requiring oxygen at the time of discharge. Withdrawal symptoms improved. He has alcohol-related severe neuropathy of lower extremities, he has drunken gait PT recommended half-way placement. He lives with his brother who is admitted currently because of health issues. He will get thiamine and folic acid along antibiotics at the time of discharge. He is going to [facility]. He suffered from severe constipation requiring aggressive bowel regimen including senna S, milk of magnesia, suppository and enema. No signs of obstruction patient is passing flatus. He had 1 bowel movement before he was released from the hospital Physical Exam Narrative: Awake and alert Abdomen soft No active emesis Doing well on room air Pleasant cooperative Looks well-hydrated Lower extremity neuropathy present No signs of edema S1, S2 Urinary Catheter Management: Orourke: Cath Placed During This Visit: yes Urinary Catheter Date of Insertion: 04/19/22 Urinary Catheter Time of Insertion: 14:20 Discharge Data Studies Completed and Pending Completed Studies During Hospitalization Category Date Time Status CT head wo con* [id number] Stat Cat Scan 04/17/22 20:06 Completed CTA chest [CT angio chest PE protcl [id number]] Stat Cat Scan 04/18/22 05:26 Completed CXRP [XR chest 1V portable [id number]] Stat Exams 04/18/22 05:48 Completed XR KUB portable [id number] Routine Exams 04/21/22 08:53 Completed XR chest 1V portable [id number] Routine Exams 04/20/22 07:20 Completed XR chest 1V portable [id number] Stat Exams 04/17/22 20:03 Completed CV. echo complete* [id number] Routine Ultrasound 04/18/22 09:42 Completed Pending at discharge Category Date Time Status Blood Culture Stat Lab 04/20/22 08:25 Results Radiology Impressions Head CT 04/17/22 20:06 IMPRESSION: No acute intracranial abnormality. Chest CTA 04/18/22 05:26 IMPRESSION: 1. No CTA evidence for proximal segmental or larger pulmonary emboli. Respiratory motion artifact limits definitive exclusion of small peripheral pulmonary emboli. No thoracic aortic aneurysm or thoracic aortic dissection. 2. Small irregular patchy ground-glass opacities in the inferior right middle lobe, right lower lobe lateral basilar segment and in the left lower lobe. Associated tiny left pleural effusion. This is suspicious for multifocal pneumonia. Recommend follow-up until complete resolution. 3. Unchanged hyperinflation of lungs and moderate to severe centrilobular emphysema. 4. Unchanged small hiatal hernia. COMMENTS: In the absence of a history or active diagnosis of lung cancer, it is recommended that this patient with emphysema be evaluated for enrollment in a low dose CT lung cancer screening program. Chest X-Ray 04/20/22 07:20 IMPRESSION: 1. No significant change from prior chest radiograph. 2. Persistent left basilar consolidation concerning for pneumonia. KUB X-Ray 04/21/22 08:53 IMPRESSION: Moderate to significant gaseous distention of the stomach as above. Laboratory Results WBC 7.2 10^3/uL (4.0-10.0) 04/21/22 02:27 RBC 3.40 10^6/uL (4.1-5.3) L 04/21/22 02:27 Hgb 11.2 g/dL (11.7-16.6) L 04/21/22 02:27 Hct 35.8 % (42.0-52.0) L 04/21/22 02:27 MCV 105.3 fl (80-94) H 04/21/22 02:27 MCH 32.9 pg (28.0-34.0) 04/21/22 02:27 MCHC 31.3 g/dL (30.0-36.0) 04/21/22 02: RDW 15.9 % (12.1-15.1) H 04/21/22 02:27 Plt Count 261 10^3/cmm (130-400) 04/21/22 02:27 MPV 10.2 fL (7.4-10.4) 04/21/22 02:27 Neut % (Auto) 72.5 % 04/21/22 02:27 Lymph % (Auto) 19.8 % 04/21/22 02:27 Camas % (Auto) 6.4 % 04/21/22 02:27 Eos % (Auto) 0.6 % 04/21/22 02:27 Baso % (Auto) 0.3 % 04/21/22 02:27 Neut # (Auto) 5.21 10^3/uL (1.8-7.7) 04/21/22 02:27 Lymph # (Auto) 1.4 10^3/uL (0.8-4.8) 04/21/22 02:27 Camas # (Auto) 0.5 10^3/uL (0.2-0.9) 04/21/22 02:27 Eos # (Auto) 0.0 10^3/uL (0.0-0.8) 04/21/22 02:27 Baso # (Auto) 0.0 10^3/uL (0.0-0.1) 04/21/22 02:27 Nucleated RBC % (auto) 0 % 04/21/22 02: Nucleated RBCs # 0.0 /100WBC 04/21/22 02:27 Specimen Type Arterial 04/18/22 06:00 Sample Site Radial, right 04/18/22 06:00 ABG pH 7.39 (7.35-7.45) 04/18/22 06:00 ABG pCO2 56.5 mmHg (35-45) H 04/18/22 06:00 ABG pO2 58.2 mmHg (80.0-100.0) L 04/18/22 06:00 ABG HCO3 33.9 mmol/L (22-26) H 04/18/22 06:00 ABG Base Excess 7.2 mmol/L (-2.0-2.0) H 04/18/22 06:00 Vasyl Test Pos 04/18/22 06:00 Hematocrit 38.9 % (42-52) L 04/18/22 06:00 O2 Delivery Device Nc 04/18/22 06:00 O2 Liters/Min 6.0 % 04/18/22 06:00 FiO2 44.0 % 04/18/22 06:00 Shipping And Receiving Specialist YESY Ferrari 04/18/22 06:00 Sodium 138 mmol/L (136-145) 04/22/22 05:59 Potassium 5.1 mmol/L (3.5-5.1) 04/22/22 05:59 Chloride 100 mmol/L (98-107) 04/22/22 05:59 Carbon Dioxide 30 mmol/L (22-29) H 04/22/22 05:59 Anion Gap 13.1 (5-19) 04/22/22 05:59 BUN 11 mg/dL (6-20) 04/22/22 05:59 Creatinine 0.7 mg/dL (0.7-1.2) 04/22/22 05:59 GFR Calculation 115.4 mL/min (90-130) 04/22/22 05:59 Glucose 92 mg/dL (65-115) 04/22/22 05:59 POC Glucose 78 mg/dL (70-110) 04/22/22 06:17 Calculated Osmolality 285 mOsm/kg (285-295) 04/22/22 05:59 Lactate 1.2 mmol/L (0.5-2.2) 04/20/22 08:20 Calcium 8.7 mg/dL (8.5-10.5) 04/22/22 05:59 Phosphorus 2.2 mg/dL (2.5-4.5) L 04/21/22 02:27 Magnesium 1.3 mg/dL (1.7-2.3) L 04/21/22 02:27 Total Bilirubin 0.3 mg/dL (0.15-1.2) 04/20/22 04:15 AST 24 U/L (0-40) 04/20/22 04:15 ALT 12 U/L (0-41) 04/20/22 04:15 Alkaline Phosphatase 63 U/L (40-130) 04/20/22 04:15 Troponin T Baseline 7 ng/L (0-15) 04/19/22 02:00 Troponin T 120 Minute 9.84 ng/L (0-15) 04/19/22 04:25 Delta Troponin T 2.84 ABS# (0-10) 04/19/22 04:25 Troponin T Hi Sens 6Hr 8.08 ng/L (0-15) 04/19/22 08:17 Troponin T Hi Sens 6Hr Delta 1.08 ng/L (0-12) 04/19/22 08:17 NT-Pro-B Natriuret Pep 647 pg/mL (0-125) H 04/17/22 20:24 Total Protein 6.3 g/dL (6.6-8.7) L 04/20/22 04:15 Albumin 3.2 g/dL (3.5-5.2) L 04/20/22 04:15 Globulin 3.1 g/dL (1.3-4.6) 04/20/22 04:15 Lipase 11 U/L (13-60) L 04/17/22 20:24 Procalcitonin 0.05 ng/mL (0-0.5) 04/18/22 05:49 Urine Color Yellow (Yellow) 04/21/22 14:35 Urine Appearance Clear (CLEAR) 04/21/22 14:35 Urine pH 9 (5-7) H 04/21/22 14:35 Ur Specific [place] 1.015 (1.005-1.030) 04/21/22 14:35 Urine Protein Neg (Negative) 04/21/22 14:35 Urine Glucose (UA) Norm (Normal) 04/21/22 14:35 Urine Ketones Negative (Negative) 04/21/22 14:35 Urine Blood Neg (Negative) 04/21/22 14:35 Urine Nitrate Negative (Negative) 04/21/22 14:35 Urine Bilirubin Neg (Negative) 04/21/22 14:35 Prot Sulfosalicylic Acd Negative (Negative) 04/21/22 14:35 Urine Urobilinogen Neg mg/dL (Negative) 04/21/22 14:35 Ur Leukocyte Esterase Negative (Negative) 04/21/22 14:35 Urine RBC 0-4 /hpf (0-2) H 04/18/22 21:30 Urine WBC 0-4 /hpf (0-5) H 04/18/22 21:30 Ur Squamous Epith Cells 0-4 /hpf (0-5) H 04/18/22 21:30 Amorphous Sediment Not Reportable 04/18/22 21:30 Urine Bacteria Trace /hpf (NONE) 04/18/22 21:30 Ethyl Alcohol 162 mg/dL (0-10) H 04/18/22 05:49 Coronavirus 229E (PCR) Not detected (NOT DETECT) 04/18/22 11:17 Influenza Type A Ag negative (Negative) 04/18/22 05:43 Influenza Type B Ag negative (Negative) 04/18/22 05:43 SARS-CoV-2 (PCR) Not detected (NOT DETECT) 04/18/22 11:17 Vitals Last Vital Signs Temp 98.3 F 04/22/22 07:44 Pulse 96 04/22/22 09:36 Resp 20 H 04/22/22 09:36 BP 125/85 04/22/22 07:44 Pulse Ox 91 04/22/22 09:36 O2 Del Method 04/22/22 09:36 O2 Flow Rate 2 04/22/22 08:00 Discharge Plan Discharge Patient Disposition: Xfer SNF Condition: Stable Prescriptions: New sennosides-docusate sodium [Stool Softener-Laxative] 8.6-50 mg Tablet 2 tab PO DAILY Qty: 30 0RF doxycycline monohydrate 100 mg Tablet 100 mg PO BID Qty: 10 0RF gabapentin 300 mg Capsule 300 mg PO BID Qty: 60 0RF Phospha 250 Neutral 250 mg Tablet 250 mg PO BID Qty: 6 0RF cefpodoxime 200 mg tablet 200 mg PO BID Qty: 20 0RF Rx Instructions: must administer with a meal/food Continued metoprolol tartrate 25 mg tablet 25 mg PO BID Qty: 180 3RF magnesium oxide 400 mg magnesium Tablet 400 mg PO BID PRN (Reason: unknown) albuterol sulfate 90 mcg/actuation HFA aerosol inhaler 1 inh inhalation Q6H PRN (Reason: shortness of breath or wheezing) Qty: 8.5 0RF folic acid 1 mg Tablet 1 mg PO DAILY Qty: 30 0RF thiamine mononitrate (vit B1) [Vitamin B-1 (mononitrate)] 100 mg Tablet 100 mg PO DAILY Qty: 90 0RF cyanocobalamin (vitamin B-12) 1,000 mcg capsule 1,000 mcg PO DAILY Qty: 60 1RF Trelegy Ellipta 100-62.5-25 mcg blister with device 1 inh inhalation DAILY Qty: 60 4RF Discharge Orders: Discharge Order (Routine); Ordered 04/22/22 Ordered By: Aspen Mijares Referrals: [facility] [Outside] Denise Coulter FNP [Nurse Practitioner] - (Need a new PCP appointment @ [place]. ) Discharge Diet: Advance as tolerated Discharge Activity: Resume usual activity Patient Instructions: Alcohol Intoxication (ED), Opioid Safety Discharge Attestations Time Spent in Discharge Care*: less than 30 min Status at Discharge: Cognitive status at discharge: cognitively intact , Behavioral status at discharge: cooperative , Quality Metrics Clinical Quality Measures [ No reported AMI, CVA or VTE this stay] Coding Level of Care Code Acute [facility] note Diagnoses Constipation K59.00 Neuropathy, alcoholic G62.1 Visual hallucinations R44.1 Community acquired pneumonia J18.9 Chest pain R07.9 Acute respiratory failure with hypoxemia J96.01 Gastritis K29.70
[2022-04-22] MEDS: magnesium hydroxide 30 mL UDC 15 ML PO (11:31)
[2022-04-22] MEDS: bisacodyl 10 mg Supp PR (11:47)
[2022-04-22 11:54] LABS: Glucose Point of Care 96 mg/dL (70-110)
[2022-04-22] MEDS: morphine 4 mg/mL SDV 1 mL 2 MG IVP (11:56)
[2022-04-22 12:22] LABS: SARS Covid-2 Antigen negative (Negative)
--- NOTE | 2022-04-22 13:07 | PC.NURSE ---
Report called to Leila WEST at [facility]. Patient had medium sized BM. AAOx4, VSS.
== END 2022-04-22 13:54 | disposition skilled nursing facility (03) | DRG 896 ==
LOC: ER 04-18 05:31 → ICU 04-18 07:02 → MEDSURG 04-21 18:50
PROVIDERS: Admitting Provider Internal Medicine; Emergency Provider Emergency Medicine; Visit Provider Internal Medicine
DX: F10.129 Alcohol abuse with intoxication, unspecified (principal); I50.31 Acute diastolic (congestive) heart failure; J18.9 Pneumonia, unspecified organism; J96.01 Acute respiratory failure with hypoxia; J44.0 Chronic obstructive pulmonary disease with (acute) lower respiratory infection; E51.2 Wernicke's encephalopathy; N39.0 Urinary tract infection, site not specified; Y90.9 Presence of alcohol in blood, level not specified; F10.131 Alcohol abuse with withdrawal delirium; G62.1 Alcoholic polyneuropathy; K29.20 Alcoholic gastritis without bleeding; Z79.51 Long term (current) use of inhaled steroids; F10.180 Alcohol abuse with alcohol-induced anxiety disorder; G89.29 Other chronic pain; I11.0 Hypertensive heart disease with heart failure; F17.210 Nicotine dependence, cigarettes, uncomplicated; E86.0 Dehydration; R13.10 Dysphagia, unspecified; K59.00 Constipation, unspecified
CPT/HCPCS: 36415; 36416; 36600; 51702; 70450; 71045; 71275; 74018; 80048; 80053; 80307; 81001; 81003; 82803; 82962; 83605; 83690; 83735; 83880; 84100; 84145; 84484; 85025; 87040; 87070; 87086; 87205; 87426; 87635; 87804; 93005; 93306; 94640; 94664; 96372; 96374; 97110; 97116; 97162; 97166; 97530; 97535; 99285; C9113; G0378; J0696; J1644; J1815; J1956; J2060; J2270; J2405; J2560; J2930; J3411; J3475; J3490; Q9967

== ENCOUNTER 2022-09-06 20:23 | Emergency (ER) | payer MEDICAID, SELFPAY ==
[2022-09-06 20:25] VITALS: BP 130/83; PULSE 84; RESP 24; TEMP 36.6; O2SAT 90; BMI 19.8
--- NOTE | 2022-09-06 20:29 | XRR_ITS ---
PROCEDURE INFORMATION: Exam: XR Chest Exam date and time: 09/06/2022 8:38 PM Age: 61 years old Clinical indication: Chest wall pain; Additional info: Cp TECHNIQUE: Imaging protocol: Radiologic exam of the chest. Views: 1 view. COMPARISON: CR (CHEST, ) 04/20/2022 11:14 AM FINDINGS: Lungs: The lungs are clear. Pleural spaces: Unremarkable. No pleural effusion. No pneumothorax. Heart/Mediastinum: Unremarkable. No cardiomegaly. Bones/joints: Several old rib fractures are again noted. No acute fracture is detected. XR/XR chest 1V portable [id number] IMPRESSION: No acute cardiopulmonary abnormality.
--- NOTE | 2022-09-06 20:37 | PC.NURSE ---
Pt. has been drinking alcohol today and states that he is short of breath, but he is always short of breath.
--- NOTE | 2022-09-06 20:38 | ECG_ITS ---
[facility] Test Date: 2022-09-06 Pat Name: Vasyl Reis Department: Room: Gender: Male Weed Eradicator: : 1960 Requested By: Crystal Javed Order Number: [id number] Agustin MD: Hermann Nava M.D. Measurements Intervals [place] Rate: 88 P: 84 [place]: 172 QRS: 94 QRSD: 83 T: 92 QT: 380 QTc: 460 Interpretive Statements SINUS RHYTHM BORDERLINE RIGHT AXIS DEVIATION [QRS AXIS > 90] POSSIBLE ANTERIOR MYOCARDIAL INFARCTION , OF INDETERMINATE AGE [30 ms Q WAVE IN V3/V4, OR R < 0.2 mV IN V4] Compared to ECG 04/19/2022 08:16:50 Myocardial infarct finding now present Prolonged QT interval no longer present Electronically Signed On 09-07-2022 8:01:24 CDT by Hermann Nava M.D. [id number]
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
[2022-09-06 21:20] VITALS: BP 130/83; PULSE 84; RESP 18; O2SAT 92
[2022-09-06 21:27] LABS: Alanine Aminotransferase 29 U/L (0-41); Albumin Level 4.2 g/dL (3.5-5.2); Alkaline Phosphatase 95 U/L (40-130); Aspartate Amino Transferase 46 U/L (0-40); Blood Urea Nitrogen 15 mg/dL (6-20); Calcium 8.2 mg/dL (8.5-10.5); Carbon Dioxide 24 mmol/L (22-29); Chloride 93 mmol/L (98-107); Glomerular Filtration Rate 137.9 mL/min (90-130); Glucose 63 mg/dL (65-115); Lipase 18 U/L (13-60); Osmolality Calculated 285 mOsm/kg (285-295); Sodium 138 mmol/L (136-145); Total Bilirubin 0.3 mg/dL (0.15-1.2); Total Protein 7.2 g/dL (6.6-8.7); Troponin(5th) Baseline 15 ng/L (0-15)
[2022-09-06 21:33] LABS: Anion Gap 25.5 (5-19); Potassium 4.5 mmol/L (3.5-5.1)
[2022-09-06 21:34] LABS: Alcohol Level 327 mg/dL (0-10)
[2022-09-06 22:02] VITALS: BP 117/82; PULSE 79; RESP 18; O2SAT 91
[2022-09-06 22:03] LABS: Basophils % 0.4 %; Eosinophils # 0.1 10^3/uL (0.0-0.8); Eosinophils % 0.7 %; Hematocrit 40.9 % (42.0-52.0); Hemoglobin 13.3 g/dL (11.7-16.6); Lymphocytes # 1.9 10^3/uL (0.8-4.8); Lymphocytes % 18.9 %; Mean Corpuscular HGB Conc 32.5 g/dL (30.0-36.0); Mean Corpuscular Hemoglobin 31.2 pg (28.0-34.0); Monocytes % 9.6 %; Neutrophils # 6.94 10^3/uL (1.8-7.7); Neutrophils % 69.9 %; Nucleated Red Blood Cells % 0 %; Platelet Count 370 10^3/cmm (130-400); Red Blood Count 4.26 10^6/uL (4.1-5.3); White Blood Count 9.9 10^3/uL (4.0-10.0)
[2022-09-06 22:24] LABS: Troponin 5 2HR 15.04 ng/L (0-15)
[2022-09-06 22:25] LABS: Troponin 5 2HR Delta 0.04 ABS# (0-10)
--- NOTE | 2022-09-12 12:22 | DCPLANNER ---
manager government called patient due to no primary care physician - patient sees Dr. Booker.
== END 2022-09-06 23:49 | disposition home or self-care (01) ==
PROVIDERS: Emergency Provider Emergency Medicine; PCP Internal Medicine
DX: R07.9 Chest pain, unspecified (principal); F10.129 Alcohol abuse with intoxication, unspecified; Y90.8 Blood alcohol level of 240 mg/100 ml or more; F17.210 Nicotine dependence, cigarettes, uncomplicated; J44.9 Chronic obstructive pulmonary disease, unspecified; I10 Essential (primary) hypertension
CPT/HCPCS: 36415; 71045; 80053; 80307; 83690; 84484; 85025; 93005; 99285

== ENCOUNTER 2022-11-24 20:36 | Emergency (ER) | payer MEDICAID, SELFPAY ==
[2022-11-24] VITALS (8 sets, daily range): BP systolic 113–138; BP diastolic 71–87; PULSE 76–98; RESP 14–21; TEMP 37.2; O2SAT 94–98; BMI 21.6
--- NOTE | 2022-11-24 21:08 | XRR_ITS ---
PROCEDURE INFORMATION: Exam: XR Chest Exam date and time: 11/24/2022 9:17 PM Age: 61 years old Clinical indication: Shortness of breath; Additional info: SOB TECHNIQUE: Imaging protocol: Radiologic exam of the chest. Views: 1 view. COMPARISON: CR (CHEST, ) 09/06/2022 8:38 PM FINDINGS: Tubes, catheters and devices: Overlying monitor leads and oxygen tubing noted. Lungs: Good inspiration versus hyperinflation. No consolidation. Pleural spaces: Unremarkable. No pleural effusion. No pneumothorax. Heart/Mediastinum: Unremarkable. No cardiomegaly. Bones/joints: Mild thoracic scoliosis. Several old rib fractures particularly on the right and old distal left clavicle fracture deformity noted, as seen with prior exam. Other findings: No significant change with prior exam. XR/XR chest 1V portable [id number] IMPRESSION: Stable appearance of the chest with exam. No acute findings.
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
[2022-11-24] MEDS: dexamethasone 10 mg/mL INJ IVP (21:40)
[2022-11-24] MEDS: ipratropium-albuterol 3 mL Neb INHALATION (21:45)
[2022-11-24] MEDS: ketorolac 30 mg/mL INJ 15 MG IVP (21:46)
--- NOTE | 2022-11-24 21:46 | ECG_ITS ---
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 Measurements Intervals [place] Rate: 81 P: 83 ND: 175 QRS: 85 QRSD: 78 T: 86 QT: 403 QTc: 469 Interpretive Statements SINUS RHYTHM Compared to ECG 09/06/2022 20:38:15 Myocardial infarct finding no longer present Electronically Signed On 11-25-2022 3:49:19 CDT by Yoko Restrepo M.D. [id number]
[2022-11-24 22:08] LABS: Basophils % 0.6 %; Eosinophils % 0.2 %; Hemoglobin 16.7 g/dL (11.7-16.6); Lymphocytes # 1.3 10^3/uL (0.8-4.8); Lymphocytes % 21.2 %; Mean Corpuscular HGB Conc 32.7 g/dL (30.0-36.0); Mean Corpuscular Hemoglobin 33.4 pg (28.0-34.0); Monocytes # 0.3 10^3/uL (0.2-0.9); Monocytes % 4.5 %; Neutrophils # 4.55 10^3/uL (1.8-7.7); Neutrophils % 72.9 %; Nucleated Red Blood Cells % 0 %; Platelet Count 254 10^3/cmm (130-400); Red Cell Distribution Width 14.8 % (12.1-15.1); White Blood Count 6.2 10^3/uL (4.0-10.0)
[2022-11-24 22:31] LABS: Lactic Sepsis W/Reflex 3.2 mmol/L (0.5-2.2)
[2022-11-24 22:41] LABS: Alanine Aminotransferase 19 U/L (0-41); Albumin Level 4.2 g/dL (3.5-5.2); Alkaline Phosphatase 118 U/L (40-130); Aspartate Amino Transferase 58 U/L (0-40); Blood Urea Nitrogen 17 mg/dL (6-20); Calcium 8.3 mg/dL (8.5-10.5); Carbon Dioxide 19 mmol/L (22-29); Chloride 90 mmol/L (98-107); Globulin 3.9 g/dL (1.3-4.6); Glomerular Filtration Rate 137.9 mL/min (90-130); Glucose 53 mg/dL (65-115); NT Pro B Type Natriuretic Pept 239 pg/mL (0-125); Osmolality Calculated 279 mOsm/kg (285-295); Sodium 135 mmol/L (136-145); Total Bilirubin 0.4 mg/dL (0.15-1.2); Total Protein 8.1 g/dL (6.6-8.7)
[2022-11-24 22:43] LABS: Anion Gap 30.3 (5-19); Potassium 4.3 mmol/L (3.5-5.1)
[2022-11-24 23:45] LABS: Alcohol Level 307 mg/dL (0-10)
[2022-11-24 23:53] LABS: Reflex Lactate Order REFLEX LACTIC ORDERD
[2022-11-24 23:55] LABS: Glucose Point of Care 214 mg/dL (70-110)
[2022-11-25] VITALS (7 sets, daily range): BP systolic 115–132; BP diastolic 71–87; PULSE 74–97; RESP 12–19; O2SAT 91–96
--- NOTE | 2022-11-25 01:22 | ECG_ITS ---
[facility] Test Date: 2022-11-25 Pat Name: Vasyl Reis Department: Room: Gender: Male Wood Box Maker: : 1960 Requested By: Robert Cooper Order Number: [id number] Velez MD: Yoko Restrepo M.D. Measurements Intervals [place] Rate: 94 P: 148 ID: [id number] QRS: 121 QRSD: 78 T: 133 QT: 373 QTc: 466 Interpretive Statements SINUS RHYTHM WITH OCCASIONAL VENTRICULAR PREMATURE COMPLEXES ARM LEADS REVERSED [INVERTED P AND QRS IN I] Compared to ECG 11/24/2022 21:46:35 Ventricular premature complex(es) now present Electronically Signed On 11-25-2022 3:48:45 CDT by Yoko Restrepo M.D. [id number]
[2022-11-25 01:23] LABS: Glucose Point of Care 245 mg/dL (70-110)
[2022-11-25 01:27] LABS: Lactic Acid level (Lactate) 2.9 mmol/L (0.5-2.2)
[2022-11-25] MEDS: LORazepam 2 mg/mL INJ 1 mL 1 MG IVP (01:35)
[2022-11-25 02:10] LABS: ABG PCO2 42.5 mmHg (35-45); ABG PH Result 7.39 (7.35-7.45); Arterial Blood Gas Hematocrit 43.7 % (42-52); Base Excess ABG 0.4 mmol/L (-2.0-2.0); Blood Gas Allen Test Pos; Blood Gas Operator Identificat glc; Blood Gas Sample Site Radial, right; Blood Gas Sample Type Arterial; HCO3 ABG 25.6 mmol/L (22-26); Oxygen Device NC; PO2 ABG 73.7 mmHg (80.0-100.0)
== END 2022-11-25 02:55 | disposition home or self-care (01) ==
PROVIDERS: Emergency Provider Emergency Medicine; PCP Internal Medicine
DX: J44.1 Chronic obstructive pulmonary disease with (acute) exacerbation (principal); F17.210 Nicotine dependence, cigarettes, uncomplicated; I10 Essential (primary) hypertension
CPT/HCPCS: 36415; 36416; 36600; 71045; 80053; 80307; 82803; 82962; 83605; 83880; 85025; 93005; 94640; 96374; 96375; 99285; J1100; J1885; J2060

== ENCOUNTER 2022-11-25 07:05 | Observation (INO) | payer MEDICAID, SELFPAY ==
[2022-11-25] VITALS (50 sets, daily range): BP systolic 144–173; BP diastolic 95–121; PULSE 70–101; RESP 7–29; TEMP 36.4–36.7; O2SAT 89–100
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
--- NOTE | 2022-11-25 07:36 | ECG_ITS ---
[facility] Test Date: 2022-11-25 Pat Name: Vasyl Reis Department: Room: Gender: Male Hybrid Tester: : 1960 Requested By: Shani Cm Order Number: [id number] Velez MD: Yoko Restrepo M.D. Measurements Intervals [place] Rate: 101 P: 0 VA: 0 QRS: 77 QRSD: 76 T: 79 QT: 360 QTc: 468 Interpretive Statements SINUS TACHYCARDIA Compared to ECG 11/25/2022 01:25:54 Sinus rhythm no longer present Ventricular premature complex(es) no longer present Electronically Signed On 11-25-2022 11:58:24 CDT by Yoko Restrepo M.D. [id number]
[2022-11-25] MEDS: metoprolol tartrate 25 mg Tablet PO ×3 (08:03→19:59)
[2022-11-25] MEDS: LORazepam 1 mg Tablet PO (08:03)
[2022-11-25] MEDS: ipratropium-albuterol 3 mL Neb INHALATION ×2 (08:28→19:46)
--- NOTE | 2022-11-25 08:43 | ECG_ITS ---
[facility] Test Date: 2022-11-25 Pat Name: Vasyl Reis Department: Room: Gender: Male Certified Paralegal: : 1960 Requested By: Shani Cm Order Number: [id number] Reading MD: Measurements Intervals [place] Rate: 151 P: 0 KS: 0 QRS: 80 QRSD: 84 T: 82 QT: 284 QTc: 451 Interpretive Statements SUPRAVENTRICULAR TACHYCARDIA CRITICAL TEST RESULT INTERPRETATION BASED ON A DEFAULT AGE OF 40 YEARS No previous ECG available for comparison [id number] f
--- NOTE | 2022-11-25 08:48 | XRR_ITS ---
PROCEDURE INFORMATION: Exam: XR Chest Exam date and time: 11/25/2022 9:07 AM Age: 61 years old Clinical indication: Pain; Shortness of breath; Angina pectoris; Additional info: Chest pain TECHNIQUE: Imaging protocol: Radiologic exam of the chest. Views: 1 view. COMPARISON: CR (CHEST, ) 11/24/2022 9:17 PM FINDINGS: Lungs: There is mild hyperinflation of lungs and upper lung zone emphysema. No confluent interstitial airspace opacities in the lungs. Pleural spaces: No pleural effusion. No pneumothorax. Heart/Mediastinum: Normal heart size. Normal mediastinum. Midline trachea. Bones/joints: Multiple old healed bilateral rib fractures are once again seen. Mild rightward scoliosis of the midthoracic spine is seen with mild degenerative disc disease changes. XR/XR chest 1V portable [id number] IMPRESSION: No confluent infiltrates in the lungs.
[2022-11-25 09:16] LABS: Basophils % 0.1 %; Hematocrit 40.9 % (42.0-52.0); Hemoglobin 13.9 g/dL (11.7-16.6); Lymphocytes # 0.3 10^3/uL (0.8-4.8); Mean Corpuscular Hemoglobin 33.6 pg (28.0-34.0); Mean Corpuscular Volume 98.8 fl (80-94); Mean Platelet Volume 9.7 fL (7.4-10.4); Monocytes # 0.3 10^3/uL (0.2-0.9); Neutrophils # 7.15 10^3/uL (1.8-7.7); Neutrophils % 91.5 %; Nucleated Red Blood Cells % 0 %; Platelet Count 245 10^3/cmm (130-400); Red Blood Count 4.14 10^6/uL (4.1-5.3); Red Cell Distribution Width 14.5 % (12.1-15.1); White Blood Count 7.8 10^3/uL (4.0-10.0)
--- NOTE | 2022-11-25 09:28 | PC.PHAR ---
pt states he takes care of his own medications-pt was discharged from [facility] on 08/10/22-pt states he was discharged with medications and has ran out of them-pt states he ran out of quetiapine 100mg hs a week ago-pt states he ran out of gabapentin 300mg tid a week ago-ran out of metoprolol tartrate 25mg bid 2 weeks ago-phospha 250 neutral bid a month ago-pt states he had trazodone 50mg hs before the retirement states he has been taking states he ran out a week ago-pts mar from when he was discharged from [facility] has the trazodone 50mg hs as dced on 07/03/22-pt states he is completely out of all his medications and inhalers (mar had trelegy and albuterol inhaler )states he needs refills on all his meds-
[2022-11-25] MEDS: metoprolol tartrate 1 mg/1 mL SDV 5 mL 5 MG IVP (09:32)
[2022-11-25] MEDS: sodium chloride 0.9% 1,000 ML 999 ML IV (09:32)
[2022-11-25 09:50] LABS: Troponin(5th) Baseline 11 ng/L (0-15)
[2022-11-25 09:51] LABS: Alanine Aminotransferase 17 U/L (0-41); Alkaline Phosphatase 118 U/L (40-130); Blood Urea Nitrogen 19 mg/dL (6-20); Calcium 8.3 mg/dL (8.5-10.5); Carbon Dioxide 28 mmol/L (22-29); Chloride 92 mmol/L (98-107); Globulin 3.2 g/dL (1.3-4.6); Glomerular Filtration Rate 115.4 mL/min (90-130); Glucose 233 mg/dL (65-115); Osmolality Calculated 288 mOsm/kg (285-295); Sodium 134 mmol/L (136-145); Total Bilirubin 0.6 mg/dL (0.15-1.2); Total Protein 7.2 g/dL (6.6-8.7)
[2022-11-25 09:55] LABS: Anion Gap 18.8 (5-19); Aspartate Amino Transferase 41 U/L (0-40); Potassium 4.8 mmol/L (3.5-5.1)
[2022-11-25 10:13] LABS: ABG PCO2 40.7 mmHg (35-45); ABG PH Result 7.46 (7.35-7.45); Alveolar-Arterial Oxygen Gradi 9.3 mmHg (5-10); Arterial Blood Gas Hematocrit 39.3 % (42-52); Base Excess ABG 4.9 mmol/L (-2.0-2.0); Blood Gas Allen Test Pos; Blood Gas Operator Identificat CAK; Blood Gas Sample Site Radial, left; Blood Gas Sample Type Arterial; Carboxyhemoglobin 3.7 %THgb (0.4-20.1); HCO3 ABG 29.1 mmol/L (22-26); HGB O2 Sat 92.5 % (95-100); Methemoglobin 0.4 % (0.4-1.5); Oxygen Device NC; Oxygen Saturation ABG 96.4; PO2 ABG 78.5 mmHg (80.0-100.0); Potassium Level - ABG 4.3 mmol/L (3.5-5.0); Total Hemoglobin 12.8 g/dL (14-18)
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
--- NOTE | 2022-11-25 11:06 | ECG_ITS ---
[facility] Test Date: 2022-11-25 Pat Name: Vasyl Reis Department: Room: Gender: Male Electronic Engraver: : 1960 Requested By: Shani Cm Order Number: [id number] Velez MD: Yoko Restrepo M.D. Measurements Intervals [place] Rate: 78 P: 73 AL: 206 QRS: 76 QRSD: 82 T: 80 QT: 426 QTc: 486 Interpretive Statements SINUS RHYTHM Compared to ECG 11/25/2022 07:43:00 SINUS TACHYCARDIA no longer present Electronically Signed On 11-25-2022 12:02:25 CDT by Yoko Restrepo M.D. [id number]
[2022-11-25 11:28] LABS: Procalcitonin 0.06 ng/mL (0-0.5)
[2022-11-25 12:53] LABS: Troponin 5 2HR 10.76 ng/L (0-15); Troponin 5 2HR Delta -0.24 ABS# (0-10)
--- NOTE | 2022-11-25 14:48 | ECG_ITS ---
[facility] Test Date: 2022-11-25 Pat Name: Vasyl Reis Department: Room: 268 Gender: Male Color Strainer: : 1960 Requested By: Shani Cm Order Number: [id number] Agustin MD: Yoko Restrepo M.D. Measurements Intervals [place] Rate: 81 P: 77 ND: 184 QRS: 79 QRSD: 77 T: 80 QT: 411 QTc: 477 Interpretive Statements SINUS RHYTHM WITH OCCASIONAL SUPRAVENTRICULAR PREMATURE COMPLEXES Compared to ECG 11/25/2022 11:06:24 No significant changes Electronically Signed On 11-25-2022 17:13:35 CDT by Yoko Restrepo M.D. [id number]
[2022-11-25] MEDS: enoxaparin 40 mg/0.4 mL Syringe SUBCUT (15:03)
[2022-11-25] MEDS: gabapentin 100 mg Capsule PO ×2 (15:03→19:59)
[2022-11-25] MEDS: nicotine 21 mg Patch 1 PATCH TRANSDERMA (15:03)
[2022-11-25] MEDS: sodium chlor 0.9% + KCl 20 mEq 20 MEQ/1,000 ML BAG 100 MEQ IV ×2 (15:04→23:58)
[2022-11-25 16:10] LABS: Troponin 5 6HR 13.97 ng/L (0-15); Troponin 5 6HR Delta 2.97 ng/L (0-12)
[2022-11-25] MEDS: doxycycline 100 mg Tablet PO (17:02)
[2022-11-25] MEDS: LORazepam 2 mg/mL INJ 1 mL IVP ×2 (17:02→23:54)
[2022-11-25] MEDS: pantoprazole DR 40 mg Tablet PO (17:02)
[2022-11-25] MEDS: docusate sodium 100 mg Capsule PO (17:02)
[2022-11-25 17:06] LABS: Glucose Point of Care 129 mg/dL (70-110)
[2022-11-25] MEDS: budesonide 0.5 mg/2 mL Neb INHALATION (19:46)
[2022-11-25] MEDS: LORazepam 2 mg Tablet PO (19:59)
[2022-11-25] MEDS: trazodone 50 mg Tablet PO (19:59)
[2022-11-25 20:34] LABS: Glucose Point of Care 153 mg/dL (70-110)
[2022-11-26] VITALS (8 sets, daily range): BP systolic 117–143; BP diastolic 74–97; PULSE 84–110; RESP 16–18; TEMP 36.4–36.8; O2SAT 91–96
[2022-11-26] MEDS: ipratropium-albuterol 3 mL Neb INHALATION ×2 (01:57→08:12)
[2022-11-26] MEDS: LORazepam 2 mg Tablet PO ×3 (03:00→12:37)
[2022-11-26 05:25] LABS: Basophils % 0.2 %; Eosinophils % 0.5 %; Hematocrit 38.9 % (42.0-52.0); Hemoglobin 12.9 g/dL (11.7-16.6); Lymphocytes # 1.4 10^3/uL (0.8-4.8); Lymphocytes % 24.9 %; Mean Corpuscular HGB Conc 33.2 g/dL (30.0-36.0); Mean Corpuscular Hemoglobin 33.2 pg (28.0-34.0); Mean Corpuscular Volume 100.3 fl (80-94); Monocytes # 0.5 10^3/uL (0.2-0.9); Monocytes % 9.1 %; Neutrophils # 3.58 10^3/uL (1.8-7.7); Neutrophils % 64.9 %; Nucleated Red Blood Cells % 0 %; Platelet Count 214 10^3/cmm (130-400); Red Blood Count 3.88 10^6/uL (4.1-5.3); Red Cell Distribution Width 14.6 % (12.1-15.1); White Blood Count 5.5 10^3/uL (4.0-10.0)
[2022-11-26 05:40] LABS: Estmated Average Glucose 88; Hemoglobin A1C 4.7 % (4.0-6.0)
[2022-11-26 05:47] LABS: Alanine Aminotransferase 13 U/L (0-41); Albumin Level 3.4 g/dL (3.5-5.2); Alkaline Phosphatase 84 U/L (40-130); Aspartate Amino Transferase 33 U/L (0-40); Blood Urea Nitrogen 12 mg/dL (6-20); Carbon Dioxide 26 mmol/L (22-29); Chloride 102 mmol/L (98-107); Globulin 2.6 g/dL (1.3-4.6); Glomerular Filtration Rate 137.9 mL/min (90-130); Glucose 118 mg/dL (65-115); Magnesium 1.2 mg/dL (1.7-2.3); Osmolality Calculated 287 mOsm/kg (285-295); Phosphorus 2.2 mg/dL (2.5-4.5); Sodium 138 mmol/L (136-145); Total Bilirubin 0.6 mg/dL (0.15-1.2)
[2022-11-26 05:51] LABS: Anion Gap 14.1 (5-19); Potassium 4.1 mmol/L (3.5-5.1)
[2022-11-26 06:21] LABS: Glucose Point of Care 143 mg/dL (70-110)
[2022-11-26] MEDS: budesonide 0.5 mg/2 mL Neb INHALATION (08:12)
[2022-11-26] MEDS: predniSONE 20 mg Tablet 40 MG PO (08:16)
[2022-11-26] MEDS: docusate sodium 100 mg Capsule PO (08:16)
[2022-11-26] MEDS: doxycycline 100 mg Tablet PO (08:16)
[2022-11-26] MEDS: multivitamin therapeutic Tablet 1 TAB PO (08:16)
[2022-11-26] MEDS: thiamine 100 mg Tablet PO (08:16)
[2022-11-26] MEDS: pantoprazole DR 40 mg Tablet PO (08:16)
[2022-11-26] MEDS: folic acid 1 mg Tablet PO (08:16)
[2022-11-26] MEDS: nicotine 21 mg Patch 1 PATCH TRANSDERMA (08:16)
[2022-11-26] MEDS: gabapentin 100 mg Capsule PO (08:16)
[2022-11-26] MEDS: acetaminophen 325 mg Tablet 650 MG PO (08:17)
[2022-11-26] MEDS: sodium chlor 0.9% + KCl 20 mEq 20 MEQ/1,000 ML BAG 100 MEQ IV (08:18)
[2022-11-26] MEDS: metoprolol tartrate 25 mg Tablet PO (08:21)
--- NOTE | 2022-11-26 09:12 | P.DS_ITS ---
Discharge Providers Date of Admission: 11/25/22 13:33 Date of Discharge: November 26, 2022 Attending Provider at Admission: Jacqueline Packer MD Attending Provider at Discharge: Kenneth Garcia MD Primary Care Provider: Laron Booker MD Diagnoses at Discharge Discharge Diagnosis (1) Acute exacerbation of chronic obstructive airways disease: Status: Acute (2) Paroxysmal supraventricular tachycardia: Status: Acute (3) Hyperglycemia, drug-induced: Status: Acute (4) Hypertension: Status: Chronic (5) Alcoholism: Status: Chronic (6) Nicotine dependence, cigarettes, with other nicotine-induced disorders: Status: Chronic Reason for Visit Reason for Visit: SOB Hospital Course Hospital Course Vasyl Reis is a 61-year-old female with a past medical history significant for COPD, tobacco use disorder, alcohol use disorder with abuse, and hypertension who presented to the emergency department with COPD exacerbation treated with antibiotics and steroids. Also found to be intoxicated with alcohol. He waited in the emergency room overnight due to transportation issues. Checked himself back into the emergency room as he thought his breathing was worse. He had some transient SVT. He was placed in observation. Patient did not desire alcohol detoxification or treatment. Symptoms improved. He remained on room air. He was discharged home in stable condition. He is to continue with his prednisone and antibiotic. Patient would benefit from alcohol tobacco cessation. Patient encouraged to follow-up with his primary care provider for further management. Physical Exam 2 Narrative: General: Patient is initially sleeping but awakes to stimulation. Head: Normocephalic. Atraumatic. EOM intact. Neck: No JVD. Cardiovascular: RRR. No gallops. No murmurs. No peripheral edema. Lungs: Breath sounds diminished, mildly coarse in bilateral lung pierre, no use of accessory muscles, no crackles. Skin: No jaundice. No rashes. Abdomen: Normal bowel sounds, abdomen soft and nontender. Extremities: No cyanosis or clubbing. Musculoskeletal: No swollen or erythematous joints. Neurological: Moves all 4 extremities. No myoclonus. Discharge Data Studies Completed and Pending Completed Studies During Hospitalization Category Date Time Status XR chest 1V portable [id number] Urgent Exams 11/25/22 08:48 Completed Pending at discharge Category Date Time Status Sputum Culture and Gram Stain Stat Lab 11/25/22 15:16 Received Radiology Impressions Chest X-Ray 11/25/22 08:48 IMPRESSION: No confluent infiltrates in the lungs. Laboratory Results WBC 5.5 10^3/uL (4.0-10.0) 11/26/22 05:10 RBC 3.88 10^6/uL (4.1-5.3) L 11/26/22 05:10 Hgb 12.9 g/dL (11.7-16.6) 11/26/22 05:10 Hct 38.9 % (42.0-52.0) L 11/26/22 05:10 MCV 100.3 fl (80-94) H 11/26/22 05:10 MCH 33.2 pg (28.0-34.0) 11/26/22 05:10 MCHC 33.2 g/dL (30.0-36.0) 11/26/22 05:10 RDW 14.6 % (12.1-15.1) 11/26/22 05:10 Plt Count 214 10^3/cmm (130-400) 11/26/22 05:10 MPV 10.0 fL (7.4-10.4) 11/26/22 05:10 Neut % (Auto) 64.9 % 11/26/22 05:10 Lymph % (Auto) 24.9 % 11/26/22 05:10 [place] % (Auto) 9.1 % 11/26/22 05:10 Eos % (Auto) 0.5 % 11/26/22 05:10 Baso % (Auto) 0.2 % 11/26/22 05:10 Neut # (Auto) 3.58 10^3/uL (1.8-7.7) 11/26/22 05:10 Lymph # (Auto) 1.4 10^3/uL (0.8-4.8) 11/26/22 05:10 [place] # (Auto) 0.5 10^3/uL (0.2-0.9) 11/26/22 05:10 Eos # (Auto) 0.0 10^3/uL (0.0-0.8) 11/26/22 05:10 Baso # (Auto) 0.0 10^3/uL (0.0-0.1) 11/26/22 05:10 Nucleated RBC % (auto) 0 % 11/26/22 05:10 Nucleated RBCs # 0.0 /100WBC 11/26/22 05:10 Specimen Type Arterial 11/25/22 10:01 Sample Site Radial, left 11/25/22 10:01 ABG pH 7.46 (7.35-7.45) H 11/25/22 10:01 ABG pCO2 40.7 mmHg (35-45) 11/25/22 10:01 ABG pO2 78.5 mmHg (80.0-100.0) L 11/25/22 10:01 ABG HCO3 29.1 mmol/L (22-26) H 11/25/22 10:01 ABG O2 Saturation 96.4 11/25/22 10:01 ABG Base Excess 4.9 mmol/L (-2.0-2.0) H 11/25/22 10:01 Vasyl Test Pos 11/25/22 10:01 A-a O2 Gradient 9.3 mmHg (5-10) 11/25/22 10:01 Hematocrit 39.3 % (42-52) L 11/25/22 10:01 Hgb O2 Saturation 92.5 % (95-100) L 11/25/22 10:01 Carboxyhemoglobin 3.7 %THgb (0.4-20.1) 11/25/22 10:01 Methemoglobin 0.4 % (0.4-1.5) 11/25/22 10:01 Total Hemoglobin 12.8 g/dL (14-18) L 11/25/22 10:01 Sodium 136.0 mmol/L (131-143) 11/25/22 10:01 Potassium 4.3 mmol/L (3.5-5.0) 11/25/22 10:01 Glucose 209.0 mg/dL (70-115) H 11/25/22 10:01 Ionized Calcium 1.0 mmol/L (1.1-1.4) L 11/25/22 10:01 O2 Delivery Device Nc 11/25/22 10:01 O2 Liters/Min 2.0 % 11/25/22 10:01 FiO2 28.0 % 11/25/22 10:01 Policy Checker ID Cak 11/25/22 10:01 Sodium 138 mmol/L (136-145) 11/26/22 05:10 Potassium 4.1 mmol/L (3.5-5.1) 11/26/22 05:10 Chloride 102 mmol/L (98-107) 11/26/22 05:10 Carbon Dioxide 26 mmol/L (22-29) 11/26/22 05:10 Anion Gap 14.1 (5-19) 11/26/22 05:10 BUN 12 mg/dL (6-20) 11/26/22 05:10 Creatinine 0.6 mg/dL (0.7-1.2) L 11/26/22 05:10 GFR Calculation 137.9 mL/min (90-130) H 11/26/22 05:10 Glucose 118 mg/dL (65-115) H 11/26/22 05:10 POC Glucose 143 mg/dL (70-110) H 11/26/22 06:15 Estimat Average Glucose 88 11/26/22 05:10 Hemoglobin A1c 4.7 % (4.0-6.0) 11/26/22 05:10 Calculated Osmolality 287 mOsm/kg (285-295) 11/26/22 05:10 Calcium 8.0 mg/dL (8.5-10.5) L 11/26/22 05:10 Phosphorus 2.2 mg/dL (2.5-4.5) L 11/26/22 05:10 Magnesium 1.2 mg/dL (1.7-2.3) L 11/26/22 05:10 Total Bilirubin 0.6 mg/dL (0.15-1.2) 11/26/22 05:10 AST 33 U/L (0-40) 11/26/22 05:10 ALT 13 U/L (0-41) 11/26/22 05:10 Alkaline Phosphatase 84 U/L (40-130) 11/26/22 05:10 Troponin T Baseline 11 ng/L (0-15) 11/25/22 09:05 Troponin T 120 Minute 10.76 ng/L (0-15) 11/25/22 11:00 Delta Troponin T -0.24 ABS# (0-10) L 11/25/22 11:00 Troponin T Hi Sens 6Hr 13.97 ng/L (0-15) 11/25/22 15:20 Troponin T Hi Sens 6Hr Delta 2.97 ng/L (0-12) 11/25/22 15:20 Total Protein 6.0 g/dL (6.6-8.7) L 11/26/22 05:10 Albumin 3.4 g/dL (3.5-5.2) L 11/26/22 05:10 Globulin 2.6 g/dL (1.3-4.6) 11/26/22 05:10 Procalcitonin 0.06 ng/mL (0-0.5) 11/25/22 09:05 Vitals Last Vital Signs Temp 98.2 F 11/26/22 07:07 Pulse 108 H 11/26/22 08:18 Resp 18 11/26/22 08:12 BP 119/74 11/26/22 07:07 Pulse Ox 93 11/26/22 08:12 O2 Del Method Room Air 11/26/22 08:12 O2 Flow Rate 2 11/25/22 19:46 Discharge Plan Discharge Patient Disposition: Home Condition: Stable Prescriptions: Continued Phospha 250 Neutral 250 mg Tablet 250 mg PO BID Qty: 6 0RF trazodone 50 mg tablet 50 mg PO BEDTIME quetiapine 100 mg Tablet 100 mg PO BEDTIME gabapentin 300 mg capsule 300 mg PO TID prednisone 20 mg tablet 40 mg PO DAILY 5 Days Qty: 10 0RF Rx Instructions: not filled as of 11/25/22 doxycycline monohydrate 100 mg Tablet 100 mg PO BID Qty: 20 0RF Rx Instructions: pt not filled as of 11/25/22 metoprolol tartrate 25 mg tablet 25 mg PO BID Qty: 60 0RF Discharge Orders: Discharge Order (Routine); Ordered 11/26/22 Ordered By: Kenneth Garcia Referrals: Laron Booker MD [Primary Care Provider] - 11/28/22 9:40 am Discharge Diet: Advance as tolerated and Usual diet Discharge Activity: Resume usual activity and Increase activity as tolerated Patient Instructions: Alcohol Abuse, Alcoholism, COPD (Chronic Obstructive Pulmonary Disease) (DC), Abuse of Alcohol (DC), COPD Stoplight, Opioid Safety Activity Restrictions/Additional Instructions: 1. Increase activity as tolerated. 2. Recommend seeking outpatient treatment for alcohol use disorder. 3. Smoking cessation. 4. Take medications as prescribed. 5. Follow up with PCP. Discharge Attestations Time Spent in Discharge Care*: greater than 30 min Status at Discharge: Cognitive status at discharge: cognitively intact , Behavioral status at discharge: cooperative , Quality Metrics Clinical Quality Measures [ No reported AMI, CVA or VTE this stay] Coding Level of Care Code Acute Code for Chg Fwd Diagnoses Acute exacerbation of chronic obstructive airways disease J44.1 Paroxysmal supraventricular tachycardia I47.1 Hyperglycemia, drug-induced R73.9; T50.905A Hypertension I10 Alcoholism F10.20 Nicotine dependence, cigarettes, with other nicotine-induced disorders F17.218
[2022-11-26] MEDS: magnesium sulfate premix 2 GM/50 ML PIGGYBACK IV (10:11)
== END 2022-11-26 14:44 | disposition home or self-care (01) ==
LOC: ER 09:39 → MEDSURG 13:34
PROVIDERS: Admitting Provider Hospitalist; Emergency Provider Physician Assistant; PCP Internal Medicine; Visit Provider Internal Medicine
DX: J44.1 Chronic obstructive pulmonary disease with (acute) exacerbation (principal); I47.1 Supraventricular tachycardia; R73.9 Hyperglycemia, unspecified; T50.905A Adverse effect of unspecified drugs, medicaments and biological substances, initial encounter; F10.20 Alcohol dependence, uncomplicated; I10 Essential (primary) hypertension
CPT/HCPCS: 36415; 36416; 36600; 71045; 80051; 80053; 82330; 82805; 82962; 83036; 83735; 84100; 84145; 84484; 85025; 87070; 87205; 93005; 94640; 96361; 96365; 96372; 96375; 99285; G0378; J1650; J2060; J3411; J3475; J3480; J3490; J7030; J7512; J7626

== ENCOUNTER 2023-08-14 11:59 | Emergency (ER) | payer MEDICAID, SELFPAY ==
[2023-08-14] VITALS (7 sets, daily range): BP systolic 119–123; BP diastolic 71–79; PULSE 73–89; RESP 16–18; TEMP 36.6; O2SAT 84–98
--- NOTE | 2023-08-14 12:12 | XR_ITS ---
WS: [id number] XR chest 1V 22015 REASON FOR EXAM: shortness of breath FINDINGS: The chest is unchanged compared to 11/25/2022. Moderate tortuosity of the thoracic aorta. Normal heart size. Calcified granulomas disease in both hemithoraces. No acute pulmonary parenchymal or pleural abnormality is identified. Mild dextroscoliosis of the thoracic spine. Moderate osteoarthritis of the shoulders. XR/XR chest 1V 98593 IMPRESSION: Stable chest without acute abnormality.
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
[2023-08-14 13:26] LABS: Influenza A by IFA negative (Negative); Influenza B by IFA negative (Negative)
[2023-08-14 13:31] LABS: SARS Covid-2 Antigen negative (Negative)
[2023-08-14 13:50] LABS: Basophils # 0.1 10^3/uL (0.0-0.1); Basophils % 1.1 %; Eosinophils # 0.3 10^3/uL (0.0-0.8); Eosinophils % 3.7 %; Hematocrit 46.5 % (37-53); Lymphocytes # 2.2 10^3/uL (0.8-4.8); Mean Corpuscular Hemoglobin 31.5 pg (27-33); Mean Corpuscular Volume 101.8 fl (82-101); Mean Platelet Volume 9.4 fL (7.4-10.4); Monocytes # 0.7 10^3/uL (0.2-0.9); Monocytes % 8.9 %; Neutrophils # 4.09 10^3/uL (1.8-7.7); Nucleated Red Blood Cells % 0 %; Platelet Count 310 10^3/cmm (157-399); Red Blood Count 4.57 10^6/uL (3.85-5.65); Red Cell Distribution Width 14.1 % (12.1-15.1)
[2023-08-14 14:18] LABS: Alanine Aminotransferase 22 U/L (0-41); Albumin Level 4.3 g/dL (3.5-5.2); Alkaline Phosphatase 71 U/L (40-130); Anion Gap 21.7 (5-19); Aspartate Amino Transferase 32 U/L (0-40); Blood Urea Nitrogen 11 mg/dL (8-23); Calcium 8.8 mg/dL (8.5-10.5); Carbon Dioxide 22 mmol/L (22-29); Chloride 103 mmol/L (98-107); Creatinine Clr Calc Pharmacy 104.1574; Globulin 3.3 g/dL (1.3-4.6); Glomerular Filtration Rate 137.4 mL/min (90-130); Glucose 53 mg/dL (65-115); Osmolality Calculated 291 mOsm/kg (285-295); Potassium 4.7 mmol/L (3.5-5.1); Sodium 142 mmol/L (136-145); Total Bilirubin 0.2 mg/dL (0.15-1.2); Total Protein 7.6 g/dL (6.6-8.7)
[2023-08-14 14:20] LABS: Lactic Sepsis W/Reflex 3.4 mmol/L (0.5-2.2)
[2023-08-14 14:21] LABS: Alcohol Level 316 mg/dL (0-10)
[2023-08-14 14:35] LABS: Glucose Point of Care 56 mg/dL (70-110)
[2023-08-14] MEDS: dexamethasone 10 mg/mL INJ IVP (14:45)
[2023-08-14] MEDS: sodium chloride 0.9% 1,000 ML 999 ML IV (14:47)
[2023-08-14] MEDS: folic acid 1 mg Tablet PO (14:47)
[2023-08-14 15:30] LABS: Glucose Point of Care 88 mg/dL (70-110)
[2023-08-14 15:32] LABS: Reflex Lactate Order REFLEX LACTIC ORDERD
[2023-08-14 16:30] LABS: Glucose Point of Care 189 mg/dL (70-110)
--- NOTE | 2023-08-14 16:32 | PC.NURSE ---
blood glucose 189, Dr. West notified
[2023-08-14] MEDS: methylPREDNISolone sod succ 125 mg/2 mL INJ IVP (16:36)
[2023-08-14] MEDS: albuterol 2.5 mg/3 mL Neb INHALATION (16:40)
[2023-08-14] MEDS: ipratropium-albuterol 3 mL Neb INHALATION (16:40)
[2023-08-14 16:52] LABS: ABG PCO2 46.7 mmHg (35-45); ABG PH Result 7.34 (7.35-7.45); Alveolar-Arterial Oxygen Gradi 5.3 mmHg (5-10); Arterial Blood Gas Hematocrit 41.3 % (42-52); Base Excess ABG -1.2 mmol/L (-2.0-2.0); Blood Gas Operator Identificat AMH; Blood Gas Sample Site Brachial, left; Blood Gas Sample Type Arterial; Carboxyhemoglobin 4.4 %THgb (0.4-20.1); HCO3 ABG 25.1 mmol/L (22-26); HGB O2 Sat 78.9 % (95-100); Ionized Calcium Level - ABG 1.2 mmol/L (1.1-1.4); Methemoglobin 0.8 % (0.4-1.5); Oxygen Device ROOM AIR; Oxygen Saturation ABG 83.3; PO2 ABG 51.3 mmHg (80.0-100.0); PO2 FiO2 Ratio Arterial Blood 0; Potassium Level - ABG 4.2 mmol/L (3.5-5.0); Total Hemoglobin 13.5 g/dL (14-18)
--- NOTE | 2023-08-14 18:11 | PC.NURSE ---
pt oxygen saturation fluctuating and decreasing despite breathing tx. pt decreased to 84%. Dr. West notified and 3L NC applied. respirations even and unlabored. pt states he thinks he has undiagnosed sleep apnea and does have COPD. pt oxgyen sat currently 96%.
== END 2023-08-14 19:32 | disposition home or self-care (01) ==
PROVIDERS: Emergency Provider Emergency Medicine; PCP Internal Medicine
DX: F10.229 Alcohol dependence with intoxication, unspecified (principal); Y90.8 Blood alcohol level of 240 mg/100 ml or more; J44.9 Chronic obstructive pulmonary disease, unspecified; E16.2 Hypoglycemia, unspecified; I10 Essential (primary) hypertension; F17.210 Nicotine dependence, cigarettes, uncomplicated; Z11.52 Encounter for screening for COVID-19
CPT/HCPCS: 36415; 36416; 36600; 71045; 80051; 80053; 80307; 82330; 82805; 82962; 83605; 85025; 86140; 87040; 87426; 87804; 94640; 96361; 96374; 96375; 99284; J1100; J2919; J3411; J7030; J7613

== ENCOUNTER 2023-08-19 19:57 | Emergency (ER) | payer MEDICAID, SELFPAY ==
[2023-08-19 20:04] VITALS: BP 141/76; PULSE 103; RESP 20; TEMP 36.7; O2SAT 90
--- NOTE | 2023-08-19 20:09 | ECG_ITS ---
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 Measurements Intervals [place] Rate: 107 P: 85 SD: 169 QRS: 84 QRSD: 82 T: 72 QT: 320 QTc: 427 Interpretive Statements SINUS TACHYCARDIA Compared to ECG 11/25/2022 15:07:13 Sinus rhythm no longer present Electronically Signed On 08-20-2023 17:16:54 CDT by Hermann Nava M.D. [email or web address] [email or web address] [email or web address]/[email or web address]/[id number] f
--- NOTE | 2023-08-19 20:09 | XRR_ITS ---
PROCEDURE INFORMATION: Exam: XR Chest Exam date and time: 08/19/2023 8:24 PM Age: 62 years old Clinical indication: Chest wall pain; Additional info: Chest pain TECHNIQUE: Imaging protocol: Radiologic exam of the chest. Views: 1 view. COMPARISON: CR XR chest 1V [id number] 08/14/2023 12:37 PM FINDINGS: Lungs: No focal consolidation. Pleural spaces: Unremarkable. No pleural effusion. No pneumothorax. Heart/Mediastinum: Unremarkable. No cardiomegaly. Bones/joints: Healing/healed fractures of the right 6, 5th and 7th ribs. XR/XR chest 1V portable [id number] IMPRESSION: No focal consolidation.
[2023-08-19 20:14] VITALS: O2SAT 82; O2SAT 90
[2023-08-19] MEDS: ketorolac 30 mg/mL INJ IVP (20:28)
[2023-08-19] MEDS: sodium chloride 0.9% 1,000 ML 999 ML IV (20:28)
[2023-08-19 20:36] LABS: Basophils # 0.1 10^3/uL (0.0-0.1); Eosinophils # 0.4 10^3/uL (0.0-0.8); Eosinophils % 6.4 %; Lymphocytes % 51.2 %; Mean Corpuscular HGB Conc 33.9 g/dL (30-55); Mean Corpuscular Hemoglobin 32.2 pg (27-33); Mean Platelet Volume 9.4 fL (7.4-10.4); Monocytes # 0.4 10^3/uL (0.2-0.9); Monocytes % 6.7 %; Neutrophils # 1.98 10^3/uL (1.8-7.7); Neutrophils % 34.4 %; Nucleated Red Blood Cells % 0 %; Platelet Count 490 10^3/cmm (157-399); Red Blood Count 4.63 10^6/uL (3.85-5.65); Red Cell Distribution Width 14.6 % (12.1-15.1); White Blood Count 5.78 10^3/uL (3.29-11.43)
--- NOTE | 2023-08-19 20:36 | ECG_ITS ---
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 Measurements Intervals [place] Rate: 94 P: 85 WV: 172 QRS: 81 QRSD: 82 T: 81 QT: 359 QTc: 449 Interpretive Statements SINUS RHYTHM Compared to ECG 11/25/2022 15:07:13 No significant changes Electronically Signed On 08-20-2023 17:24:00 CDT by Hermann Nava M.D. [id number]
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
[2023-08-19 20:46] LABS: INR 0.85 (0.8-1.2)
[2023-08-19 20:52] LABS: Troponin(5th) Baseline 25 ng/L (0-15)
[2023-08-19 21:20] LABS: Alanine Aminotransferase 13 U/L (0-41); Albumin Level 4.6 g/dL (3.5-5.2); Alkaline Phosphatase 79 U/L (40-130); Aspartate Amino Transferase 24 U/L (0-40); Blood Urea Nitrogen 10 mg/dL (8-23); Calcium 8.7 mg/dL (8.5-10.5); Carbon Dioxide 26 mmol/L (22-29); Chloride 101 mmol/L (98-107); Creatinine Clr Calc Pharmacy 89.2778; Globulin 3.8 g/dL (1.3-4.6); Glucose 83 mg/dL (65-115); Osmolality Calculated 296 mOsm/kg (285-295); Sodium 144 mmol/L (136-145); Total Bilirubin 0.2 mg/dL (0.15-1.2); Total Protein 8.4 g/dL (6.6-8.7)
[2023-08-19 21:21] LABS: Alcohol Level 378 mg/dL (0-10)
[2023-08-19 21:25] VITALS: BP 147/93; PULSE 90; RESP 16; O2SAT 100
[2023-08-19 21:29] LABS: NT Pro B Type Natriuretic Pept 322 pg/mL (0-125)
[2023-08-19 22:55] LABS: Troponin 5 2HR 22.17 ng/L (0-15)
[2023-08-19 22:57] LABS: Troponin 5 2HR Delta -2.83 ABS# (0-10)
[2023-08-19 23:10] VITALS: BP 139/94; PULSE 98; RESP 16; O2SAT 95
[2023-08-20 02:19] VITALS: BP 125/88; PULSE 72; RESP 16; O2SAT 97
[2023-08-20 04:40] VITALS: BP 160/94; PULSE 75; RESP 16; O2SAT 96
[2023-08-20 05:38] VITALS: BP 162/94; PULSE 78; RESP 16; O2SAT 96
[2023-08-20 06:00] VITALS: BP 162/94; PULSE 78; RESP 16; TEMP 36.7; O2SAT 96
== END 2023-08-20 06:01 | disposition home or self-care (01) ==
PROVIDERS: Emergency Provider Emergency Medicine; PCP Internal Medicine
DX: R07.89 Other chest pain (principal); F10.920 Alcohol use, unspecified with intoxication, uncomplicated; F17.210 Nicotine dependence, cigarettes, uncomplicated; J44.9 Chronic obstructive pulmonary disease, unspecified; I10 Essential (primary) hypertension
CPT/HCPCS: 36415; 71045; 80053; 80307; 83880; 84484; 85025; 85610; 93005; 96361; 96374; 99285; J1885; J7030

== ENCOUNTER 2023-09-20 18:32 | Inpatient (IN) | payer MEDICAID, SELFPAY ==
[2023-09-20] VITALS (8 sets, daily range): BP systolic 104–169; BP diastolic 67–103; PULSE 85–112; RESP 15–20; TEMP 36.6–36.7; O2SAT 87–94; BMI 18.4
--- NOTE | 2023-09-20 18:39 | XRR_ITS ---
PROCEDURE INFORMATION: Exam: XR Chest Exam date and time: 09/20/2023 6:49 PM Age: 62 years old Clinical indication: Shortness of breath; Patient HX: SOB TECHNIQUE: Imaging protocol: Radiologic exam of the chest. Views: 1 view. COMPARISON: CR (CHEST, ) 08/19/2023 8:24 PM FINDINGS: Lungs: Bibasilar interstitial infiltrate is seen with small effusion, [id number]. Hyperinflation suggests COPD/emphysematous change. No pneumothorax. Pleural spaces: See Lungs finding. Heart/Mediastinum: Unremarkable. No cardiomegaly. Bones/joints: Evidence for prior or healed rib fractures on the right. Mild thoracic scoliosis. XR/XR chest 1V portable [id number] IMPRESSION: Bibasilar interstitial infiltrate or pneumonia with small effusion, [id number]-right. Follow-up with treatment can be performed.
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
[2023-09-20 18:54] LABS: ABG PH Result 7.38 (7.35-7.45); Arterial Blood Gas Hematocrit 35.7 % (42-52); Base Excess ABG 2.8 mmol/L (-2.0-2.0); Blood Gas Allen Test Pos; Blood Gas Operator Identificat WALCI; Blood Gas Sample Site Radial, left; Blood Gas Sample Type Arterial; Carboxyhemoglobin 5.9 %THgb (0.4-20.1); HCO3 ABG 28.6 mmol/L (22-26); HGB O2 Sat 82.2 % (95-100); Methemoglobin 0.5 % (0.4-1.5); Oxygen Device NC; PO2 ABG 57.1 mmHg (80.0-100.0); Total Hemoglobin 11.6 g/dL (14-18)
[2023-09-20] MEDS: albuterol 2.5 mg/3 mL Neb INHALATION (18:57)
[2023-09-20 19:06] LABS: Basophils # 0.2 10^3/uL (0.0-0.1); Basophils % 1.6 %; Eosinophils # 0.1 10^3/uL (0.0-0.8); Lymphocytes # 1.6 10^3/uL (0.8-4.8); Mean Corpuscular HGB Conc 31.5 g/dL (30-55); Mean Corpuscular Hemoglobin 31.8 pg (27-33); Mean Platelet Volume 9.4 fL (7.4-10.4); Monocytes # 0.6 10^3/uL (0.2-0.9); Monocytes % 6.9 %; Neutrophils # 6.77 10^3/uL (1.8-7.7); Neutrophils % 73.1 %; Nucleated Red Blood Cells % 0 %; Platelet Count 610 10^3/cmm (157-399); Red Blood Count 3.96 10^6/uL (3.85-5.65); Red Cell Distribution Width 16.9 % (12.1-15.1); White Blood Count 9.27 10^3/uL (3.29-11.43)
[2023-09-20] MEDS: methylPREDNISolone sod succ 125 mg/2 mL INJ IV (19:11)
[2023-09-20 19:36] LABS: Alanine Aminotransferase 17 U/L (0-41); Albumin Level 3.5 g/dL (3.5-5.2); Alkaline Phosphatase 111 U/L (40-130); Aspartate Amino Transferase 28 U/L (0-40); Blood Urea Nitrogen 8 mg/dL (8-23); Calcium 8.6 mg/dL (8.5-10.5); Carbon Dioxide 24 mmol/L (22-29); Chloride 98 mmol/L (98-107); Creatinine Clr Calc Pharmacy 117.5981; Glomerular Filtration Rate 137.4 mL/min (90-130); Glucose 85 mg/dL (65-115); NT Pro B Type Natriuretic Pept 6090 pg/mL (0-125); Osmolality Calculated 282 mOsm/kg (285-295); Sodium 137 mmol/L (136-145); Total Bilirubin 0.3 mg/dL (0.15-1.2); Total Protein 7.5 g/dL (6.6-8.7)
[2023-09-20] MEDS: FUROsemide 10 mg/mL SDV 4mL 40 MG IVP (20:02)
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
[2023-09-20 21:38] LABS: C Reactive Protein 13.5 mg/L (0.0-4.9)
[2023-09-20 21:44] LABS: Procalcitonin 0.07 ng/mL (0-0.5)
[2023-09-20] MEDS: LORazepam 2 mg/mL INJ 1 mL IVP (21:45)
[2023-09-20] MEDS: enoxaparin 40 mg/0.4 mL Syringe SUBCUT (21:48)
[2023-09-20 22:01] LABS: Alcohol Level 129 mg/dL (0-10)
--- NOTE | 2023-09-20 22:11 | PC.NURSE ---
contacted regarding Solu medrol about pt recieving a dose of 125 mg in ER, MD gave orders to hold the 2200 dose and start back up with the 0400 in AM
[2023-09-20] MEDS: quetiapine 100 mg Tablet PO (22:41)
[2023-09-20] MEDS: trazodone 50 mg Tablet PO (22:41)
[2023-09-20] MEDS: cefTRIAXone 1,000 MG in sodium chloride 0.9% (plus) 50 ML 100 MG IV (22:42)
[2023-09-20] MEDS: azithromycin 500 MG in sodium chloride 0.9% 250 ML 250 MG IV (23:08)
[2023-09-21] VITALS (61 sets, daily range): BP systolic 90–107; BP diastolic 58–77; PULSE 72–127; RESP 14–29; TEMP 36.1–36.9; O2SAT 92–98
--- NOTE | 2023-09-21 00:35 | ECG_ITS ---
[facility] Test Date: 2023-09-21 Pat Name: Vasyl Reis Department: Room: 104 Gender: Male Dobie Worker: : 1960 Requested By: Kenneth Lal Order Number: [id number] Velez MD: Karen Villarreal M.D. Measurements Intervals [place] Rate: 128 P: 140 MA: 174 QRS: 75 QRSD: 78 T: 68 QT: 383 QTc: 560 Interpretive Statements SINUS TACHYCARDIA WITH OCCASIONAL VENTRICULAR PREMATURE COMPLEXES MODERATE ST DEPRESSION [0.05+ mV ST DEPRESSION] Compared to ECG 08/19/2023 20:36:40 Ventricular premature complex(es) now present ST (T wave) deviation now present Sinus rhythm no longer present Electronically Signed On 09-21-2023 18:59:57 CDT by Karen Villarreal M.D. [id number]
[2023-09-21] MEDS: methylPREDNISolone sod succ 40 mg/mL INJ IVP ×4 (03:25→22:08)
[2023-09-21 04:53] LABS: Anion Gap 17.8 (5-19); Blood Urea Nitrogen 9 mg/dL (8-23); Carbon Dioxide 27 mmol/L (22-29); Chloride 98 mmol/L (98-107); Creatinine Clr Calc Pharmacy 81.1111; Glomerular Filtration Rate 98.6 mL/min (90-130); Glucose 277 mg/dL (65-115); Magnesium 1.7 mg/dL (1.7-2.3); Osmolality Calculated 295 mOsm/kg (285-295); Phosphorus 4.8 mg/dL (2.5-4.5); Potassium 4.8 mmol/L (3.5-5.1); Sodium 138 mmol/L (136-145)
[2023-09-21 05:21] LABS: Thyroid Stimulating Hormone 1.29 uIU/mL (0.27-4.20)
[2023-09-21] MEDS: FUROsemide 10 mg/mL SDV 4mL 40 MG IVP (05:28)
[2023-09-21] MEDS: budesonide 0.5 mg/2 mL Neb INHALATION ×2 (07:53→20:30)
[2023-09-21] MEDS: thiamine 100 mg Tablet PO (08:26)
[2023-09-21] MEDS: gabapentin 300 mg Capsule PO ×3 (08:26→20:12)
[2023-09-21] MEDS: folic acid 1 mg Tablet PO (08:26)
[2023-09-21] MEDS: metoprolol tartrate 25 mg Tablet PO ×2 (08:26→20:12)
[2023-09-21] MEDS: multivitamin therapeutic Tablet 1 TAB PO (08:26)
--- NOTE | 2023-09-21 09:30 | USCV_ITS ---
Vasyl Reis Age: 62 Gender: M : 1960 Exam Date: 09/21/2023 13:12 Ordering Phys: Kenneth Garcia MD Technologist: Exam Location: [facility] [place] Indication: sob chest pain BP: 100 / 77 HR: 87 Rhythm: Sinus Technical Quality: Adequate MEASUREMENTS (Male / Female) Normal Values 2D ECHO LV Diastolic Diameter PLAX 3.3 cm 4.2 - 5.9 / 3.9 - 5.3 cm IVS Diastolic Thickness 1.0 cm 0.6 - 1.0 / 0.6 - 0.9 cm IVS Systolic Thickness 1.5 cm LVPW Diastolic Thickness 1.4 cm 0.6 - 1.0 / 0.6 - 0.9 cm LVPW Systolic Thickness 1.6 cm LV Ejection Fraction 2D Teich 59.8 % DOPPLER AV Peak Velocity 114.0 cm/s PV Peak Velocity 85.0 cm/s FINDINGS Left Ventricle Right Ventricle Right Atrium Left Atrium Mitral Valve Aortic Valve Tricuspid Valve Pulmonic Valve Pericardium Aorta IVC CONCLUSIONS Technically very limited quality echocardiogram with poor ultrasonic windows. Grossly LV systolic function is normal. Valvular stuctures are not well visualized. Hermann Nava MD (Electronically Signed) Final Date: 21 September 2023 16:47 S
--- NOTE | 2023-09-21 10:02 | PC.CHAP ---
Pastoral Care Encounter/Spiritual Assessment Type of Contact [] Declined home management supervisor visit [] Patient/Family/Request visit [] Outpatient visit [] Follow-up visit [] Physician referral [] Code/Alert [x] Routine visit [] Staff referral [] Actively dying [] Patient sleeping [] Family support [] [] Out of room [] Palliative care [] [] Receiving care in room [] Pre-surgical visit [] Trauma [] Long length of stay [] ICU visit [] Other: Relational/Emotional Strength [x] Patient feels connected with others/family/visitors/staff [] Distress [] Loneliness/isolation [] Abandonment Spirituality of Patient [x] Person of Keisha [] Attends Lutheran of their Keisha [x] Believes in Prayer [] Reads Bible or Holiness materials [] There are Spiritual issues to be addressed Pan Puller Interventions [x] Prayer [x] Active listening [] Non-anxious presence [] Spiritual/emotional support [] Crisis/trauma care [] Spiritual counseling [] Bereavement support [] Provided bereavement packet [] Provided Bible/devotional materials [] Provided toy/stuffed animal, coloring book to patient or family member [] Provided Communion [] Anointing/[place] [] Salvation [x] Completed spiritual assessment [] Other: Impact on Illness or Injury [] Angry [] Fearful [] Anxious [] Often cries [] Exhaustion [] Unable to work [] Unable to attend zoroastrian [] Unable to walk/stand [] Unable to read [] Unable to drive [] Unable to eat/drink [] Unable to sleep [] Unable to be with family [] Patient intubated [] Other: Summary patient very weak Time spent with patient 10 min
--- NOTE | 2023-09-21 10:06 | P.PN_ITS ---
Subjective 2 Subjective: Patient during mild signs of withdrawal with active tremors Currently on 3 L nasal cannula No active chest pain Eating breakfast Patient smokes 1 pack/day, drinks 4 beers along whiskey Vitals/I&O/Wt Last Vital Signs Temp 96.9 F L 09/21/23 07:32 Pulse 86 09/21/23 07:54 Resp 16 09/21/23 07:54 BP 107/77 09/21/23 07:32 Pulse Ox 94 09/21/23 07:54 O2 Del Method Nasal Cannula 09/21/23 07:54 O2 Flow Rate 3 09/21/23 07:54 09/20/23 09/21/23 09/21/23 22:59 06:59 14:59 Intake Total 480 / 480 300 / 780 Output Total 1125 / 1125 Balance -645 / -645 300 / -345 Weight last 48 hrs Weight 58.513 kg Weight 58.4 kg Weight 63.503 kg Physical Exam 2 Narrative: Awake and alert Active chest pain Cachectic, malnourished Unkept appearance No active chest pain Currently on 3 L No active wheezing mild crackles at base of the lungs Clinically does not look fluid overloaded S1, S2 Data 09/20/23 18:59 09/21/23 03:08 A&P Assessment and plan (1) Alcoholism: (2) Elevated brain natriuretic peptide (BNP) level: (3) Neuropathy, alcoholic: (4) COPD (chronic obstructive pulmonary disease): (5) Acute exacerbation of chronic obstructive airways disease: (6) Acute respiratory failure with hypoxemia: (7) Nicotine dependence, cigarettes, with other nicotine-induced disorders: Plan COPD exacerbation with CHF decompensation BNP 6000 Continue diuresis Currently on 3 L Judicious use of diuretics keep an eye on blood pressure Previous echo showed preserved ejection fraction No active chest pain Concern for pneumonia continue ceftriaxone and change azithromycin to p.o. regimen Alcohol abuse Continue CIWA protocol Continue thiamine folic acid Mild signs of withdrawal present Active smoker, counseled on smoking cessation Medical DPOA not assigned but stating that brother should be notified in case he is not able to make decision He is full code DVT prophylaxis on board Attestations 2 Medical Necessity Statement*: Continue medical management Diagnoses Alcoholism F10.20 Elevated brain natriuretic peptide (BNP) level R79.89 Neuropathy, alcoholic G62.1 Chronic obstructive pulmonary disease, unspecified COPD type J44.9 Acute exacerbation of chronic obstructive airways disease J44.1 Acute respiratory failure with hypoxemia J96.01 Nicotine dependence, cigarettes, with other nicotine-induced disorders F17.218
[2023-09-21] MEDS: LORazepam 2 mg Tablet PO ×2 (14:36→20:13)
[2023-09-21] MEDS: quetiapine 100 mg Tablet PO (20:13)
[2023-09-21] MEDS: trazodone 50 mg Tablet PO (20:13)
[2023-09-21] MEDS: enoxaparin 40 mg/0.4 mL Syringe SUBCUT (22:08)
[2023-09-21] MEDS: cefTRIAXone 1,000 MG in sodium chloride 0.9% (plus) 50 ML 100 MG IV (22:08)
[2023-09-22] VITALS (105 sets, daily range): BP systolic 97–117; BP diastolic 73–84; PULSE 74–113; RESP 12–41; TEMP 36.4; O2SAT 83–98; BMI 16.9
[2023-09-22] MEDS: methylPREDNISolone sod succ 40 mg/mL INJ IVP ×3 (03:23→15:40)
[2023-09-22] MEDS: LORazepam 2 mg/mL INJ 1 mL IVP (03:24)
[2023-09-22 04:32] LABS: Basophils % 0.1 %; Hematocrit 35.8 % (37-53); Lymphocytes # 0.5 10^3/uL (0.8-4.8); Lymphocytes % 3.9 %; Mean Corpuscular HGB Conc 31.8 g/dL (30-55); Mean Corpuscular Hemoglobin 31.2 pg (27-33); Mean Corpuscular Volume 98.1 fl (82-101); Mean Platelet Volume 9.5 fL (7.4-10.4); Monocytes # 0.5 10^3/uL (0.2-0.9); Monocytes % 3.6 %; Neutrophils # 12.13 10^3/uL (1.8-7.7); Neutrophils % 91.8 %; Nucleated Red Blood Cells % 0 %; Platelet Count 599 10^3/cmm (157-399); Red Blood Count 3.65 10^6/uL (3.85-5.65); Red Cell Distribution Width 17.2 % (12.1-15.1); White Blood Count 13.21 10^3/uL (3.29-11.43)
[2023-09-22 04:56] LABS: Anion Gap 13.6 (5-19); Blood Urea Nitrogen 16 mg/dL (8-23); Calcium 8.5 mg/dL (8.5-10.5); Carbon Dioxide 32 mmol/L (22-29); Chloride 95 mmol/L (98-107); Creatinine Clr Calc Pharmacy 72.2383; Glomerular Filtration Rate 86.1 mL/min (90-130); Glucose 167 mg/dL (65-115); Magnesium 1.7 mg/dL (1.7-2.3); Osmolality Calculated 287 mOsm/kg (285-295); Potassium 4.6 mmol/L (3.5-5.1); Sodium 136 mmol/L (136-145)
[2023-09-22] MEDS: FUROsemide 10 mg/mL SDV 4mL 40 MG IVP (05:36)
[2023-09-22] MEDS: budesonide 0.5 mg/2 mL Neb INHALATION (07:47)
[2023-09-22] MEDS: ipratropium-albuterol 3 mL Neb INHALATION (07:47)
[2023-09-22] MEDS: multivitamin therapeutic Tablet 1 TAB PO (08:57)
[2023-09-22] MEDS: gabapentin 300 mg Capsule PO ×2 (08:57→15:40)
[2023-09-22] MEDS: azithromycin 250 mg Tablet 500 MG PO (08:57)
[2023-09-22] MEDS: thiamine 100 mg Tablet PO (08:57)
[2023-09-22] MEDS: folic acid 1 mg Tablet PO (08:57)
[2023-09-22 09:41] LABS: ABG PCO2 48.3 mmHg (35-45); ABG PH Result 7.46 (7.35-7.45); Alveolar-Arterial Oxygen Gradi 4.8 mmHg (5-10); Arterial Blood Gas Hematocrit 36.2 % (42-52); Base Excess ABG 9.4 mmol/L (-2.0-2.0); Blood Gas Allen Test Pos; Blood Gas Operator Identificat CAK; Blood Gas Sample Site Radial, left; Blood Gas Sample Type Arterial; Carboxyhemoglobin 1.5 %THgb (0.4-20.1); HCO3 ABG 34.6 mmol/L (22-26); HGB O2 Sat 85.7 % (95-100); Ionized Calcium Level - ABG 1.2 mmol/L (1.1-1.4); Methemoglobin 0.5 % (0.4-1.5); Oxygen Device ROOM AIR; Oxygen Saturation ABG 87.4; PO2 ABG 54.1 mmHg (80.0-100.0); PO2 FiO2 Ratio Arterial Blood 0; Total Hemoglobin 11.8 g/dL (14-18)
--- NOTE | 2023-09-22 10:02 | P.DS_ITS ---
Discharge Providers Date of Admission: 09/20/23 19:45 Date of Discharge: September 22, 2023 Attending Provider at Admission: Kenneth Garcia MD Attending Provider at Discharge: Aspen Mijares MD Primary Care Provider: Laron Booker MD Diagnoses at Discharge Discharge Diagnosis (1) Alcoholism: Status: Chronic (2) Elevated brain natriuretic peptide (BNP) level: Status: Acute (3) Neuropathy, alcoholic: Status: Chronic (4) COPD (chronic obstructive pulmonary disease): Status: Chronic (5) Acute exacerbation of chronic obstructive airways disease: Status: Acute (6) Acute respiratory failure with hypoxemia: Status: Acute (7) Nicotine dependence, cigarettes, with other nicotine-induced disorders: Status: Chronic Reason for Visit Reason for Visit: SOB Hospital Course Hospital Course 62-year-old male with nicotine dependence, noncompliant, has stopped using oxygen, presented to hospital for worsening shortness of breath, he was diagnosed with mild CHF exacerbation, he endorsed orthopnea PND, echo showed grossly normal left ventricular systolic function, his BNP was high, he was given diuretics however clinically he did not look fluid overloaded, he was diagnosed with pneumonia required antibiotics, during hospitalization he has been requiring 3 to 4 L of oxygen, ABG which was done on room air showed hypoxia as well. At the time of discharge I will give him Spiriva, DuoNeb, Medrol pack, azithromycin, low-dose Lasix along potassium supplementation, Advair Please note patient is stating that his blood pressure normally stays in the 90s, at the time of discharge blood pressure is 97/74 mmHg, remained afebrile, Physical Exam Narrative: Malnourished Unkept appearance On 3 L Blood pressure 97/74 mmhg Nonfocal neuroexam Abdomen soft No sign of heart failure clinically Discharge Data Studies Completed and Pending Completed Studies During Hospitalization Category Date Time Status XR chest 1V portable [id number] Stat Exams 09/20/23 18:39 Completed CV. echo complete* [id number] Routine Ultrasound 09/21/23 09:30 Completed Pending at discharge Category Date Time Status Sputum Culture and Gram Stain Routine Lab 09/20/23 22:09 Uncollected Radiology Impressions Chest X-Ray 09/20/23 18:39 IMPRESSION: Bibasilar interstitial infiltrate or pneumonia with small effusion, [id number]. Follow-up with treatment can be performed. Laboratory Results WBC 13.21 10^3/uL (3.29-11.43) H 09/22/23 03:25 RBC 3.65 10^6/uL (3.85-5.65) L 09/22/23 03:25 Hgb 11.40 g/dL (11.27-16.99) 09/22/23 03:25 Hct 35.8 % (37-53) L 09/22/23 03:25 MCV 98.1 fl (82-101) 09/22/23 03:25 MCH 31.2 pg (27-33) 09/22/23 03:25 MCHC 31.8 g/dL (30-55) 09/22/23 03:25 RDW 17.2 % (12.1-15.1) H 09/22/23 03:25 Plt Count 599 10^3/cmm (157-399) H 09/22/23 03:25 MPV 9.5 fL (7.4-10.4) 09/22/23 03:25 Neut % (Auto) 91.8 % 09/22/23 03:25 Lymph % (Auto) 3.9 % 09/22/23 03:25 [place] % (Auto) 3.6 % 09/22/23 03:25 Eos % (Auto) 0.0 % 09/22/23 03:25 Baso % (Auto) 0.1 % 09/22/23 03:25 Neut # (Auto) 12.13 10^3/uL (1.8-7.7) H 09/22/23 03:25 Lymph # (Auto) 0.5 10^3/uL (0.8-4.8) L 09/22/23 03:25 [place] # (Auto) 0.5 10^3/uL (0.2-0.9) 09/22/23 03:25 Eos # (Auto) 0.0 10^3/uL (0.0-0.8) 09/22/23 03:25 Baso # (Auto) 0.0 10^3/uL (0.0-0.1) 09/22/23 03:25 Nucleated RBC % (auto) 0 % 09/22/23 03:25 Nucleated RBCs # 0.0 /100WBC 09/22/23 03:25 Specimen Type Arterial 09/22/23 09:30 Sample Site Radial, left 09/22/23 09:30 ABG pH 7.46 (7.35-7.45) H 09/22/23 09:30 ABG pCO2 48.3 mmHg (35-45) H 09/22/23 09:30 ABG pO2 54.1 mmHg (80.0-100.0) L 09/22/23 09:30 ABG PO2/FiO2 Ratio 0 09/22/23 09:30 ABG HCO3 34.6 mmol/L (22-26) H 09/22/23 09:30 ABG O2 Saturation 87.4 09/22/23 09:30 ABG Base Excess 9.4 mmol/L (-2.0-2.0) H 09/22/23 09:30 Vasyl Test Pos 09/22/23 09:30 A-a O2 Gradient 4.8 mmHg (5-10) L 09/22/23 09:30 Hematocrit 36.2 % (42-52) L 09/22/23 09:30 Hgb O2 Saturation 85.7 % (95-100) L 09/22/23 09:30 Carboxyhemoglobin 1.5 %THgb (0.4-20.1) 09/22/23 09:30 Methemoglobin 0.5 % (0.4-1.5) 09/22/23 09:30 Total Hemoglobin 11.8 g/dL (14-18) L 09/22/23 09:30 Sodium 138.0 mmol/L (131-143) 09/22/23 09:30 Potassium 4.0 mmol/L (3.5-5.0) 09/22/23 09:30 Glucose 162.0 mg/dL (70-115) H 09/22/23 09:30 Ionized Calcium 1.2 mmol/L (1.1-1.4) 09/22/23 09:30 O2 Delivery Device Room air 09/22/23 09:30 O2 Liters/Min 7.0 % 09/20/23 18:39 FiO2 21.0 % 09/22/23 09:30 Third Officer ID Cak 09/22/23 09:30 Sodium 136 mmol/L (136-145) 09/22/23 03:25 Potassium 4.6 mmol/L (3.5-5.1) 09/22/23 03:25 Chloride 95 mmol/L (98-107) L 09/22/23 03:25 Carbon Dioxide 32 mmol/L (22-29) H 09/22/23 03:25 Anion Gap 13.6 (5-19) 09/22/23 03:25 BUN 16 mg/dL (8-23) 09/22/23 03:25 Creatinine 0.9 mg/dL (0.7-1.2) 09/22/23 03:25 GFR Calculation 86.1 mL/min (90-130) L 09/22/23 03:25 Glucose 167 mg/dL (65-115) H 09/22/23 03:25 Calculated Osmolality 287 mOsm/kg (285-295) 09/22/23 03:25 Calcium 8.5 mg/dL (8.5-10.5) 09/22/23 03:25 Phosphorus 4.8 mg/dL (2.5-4.5) H 09/21/23 03:08 Magnesium 1.7 mg/dL (1.7-2.3) 09/22/23 03:25 Total Bilirubin 0.3 mg/dL (0.15-1.2) 09/20/23 18:59 AST 28 U/L (0-40) 09/20/23 18:59 ALT 17 U/L (0-41) 09/20/23 18:59 Alkaline Phosphatase 111 U/L (40-130) 09/20/23 18:59 C-Reactive Protein 13.5 mg/L (0.0-4.9) H 09/20/23 18:59 NT-Pro-B Natriuret Pep 6090 pg/mL (0-125) H 09/20/23 18:59 Total Protein 7.5 g/dL (6.6-8.7) 09/20/23 18:59 Albumin 3.5 g/dL (3.5-5.2) 09/20/23 18:59 Globulin 4.0 g/dL (1.3-4.6) 09/20/23 18:59 Procalcitonin 0.07 ng/mL (0-0.5) 09/20/23 18:59 TSH 1.29 uIU/mL (0.27-4.20) 09/21/23 03:08 Ethyl Alcohol 129 mg/dL (0-10) H 09/20/23 18:59 Vitals Last Vital Signs Temp 97.6 F 09/22/23 07:39 Pulse 87 09/22/23 07:45 Resp 15 09/22/23 07:45 BP 97/74 09/22/23 07:39 Pulse Ox 88 L 09/22/23 09:56 O2 Del Method Nasal Cannula 09/22/23 07:45 O2 Flow Rate 3 09/22/23 07:45 Discharge Plan Discharge Patient Disposition: Home Condition: Stable Prescriptions: New gabapentin 300 mg Capsule 300 mg PO TID Qty: 90 2RF azithromycin 250 mg Tablet 500 mg PO DAILY Qty: 3 0RF ipratropium-albuterol 0.5 mg-3 mg(2.5 mg base)/3 mL solution for nebulization 3 ml inhalation Q8H PRN (Reason: shortness of breath or wheezing) Qty: 180 3RF furosemide [Lasix] 20 mg tablet 20 mg PO DAILY PRN (Reason: weight gain) Qty: 60 0RF Rx Instructions: If you notice weight gain more than 3 pounds in a day or not able to lay flat fluticasone propion-salmeterol [Advair HFA] 115-21 mcg/actuation HFA aerosol inhaler 2 inh inhalation BID Qty: 12 5RF tiotropium bromide [Spiriva with HandiHaler] 18 mcg capsule, w/inhalation device 1 cap inhalation DAILY Qty: 90 4RF Rx Instructions: puncture 1 cap using device; one dose = 2 inhalations potassium chloride 10 mEq tablet extended release 10 meq PO DAILY PRN (Reason: Only take when you take place) Qty: 30 0RF Rx Instructions: Only when you take Lasix methylprednisolone [Medrol (To)] 4 mg tablets,dose pack See Rx Instructions .ROUTE .COMPLEX Qty: 21 0RF Rx Instructions: orally per package directions Continued Phospha 250 Neutral 250 mg Tablet 250 mg PO BID Qty: 6 0RF trazodone 50 mg tablet 50 mg PO BEDTIME quetiapine 100 mg Tablet 100 mg PO BEDTIME gabapentin 300 mg capsule 300 mg PO TID Discontinued metoprolol tartrate 25 mg tablet 25 mg PO BID Qty: 60 0RF Other Ambulatory Orders: DME: Nebulizer with Neb Kit (Order) Location: None Selected Ordered By: Louise Dyllan DME: Oxygen (Order) Location: None Selected Ordered By: Aspen Mijares Referrals: Ana Laura [Outside] Laron Booker MD [Primary Care Provider] - Patient Instructions: Opioid Safety Discharge Attestations Time Spent in Discharge Care*: greater than 30 min Status at Discharge: Cognitive status at discharge: cognitively intact , Behavioral status at discharge: cooperative , Quality Metrics Clinical Quality Measures [ No reported AMI, CVA or VTE this stay] Coding Level of Care Code Acute Code for Chg Fwd Diagnoses Alcoholism F10.20 Elevated brain natriuretic peptide (BNP) level R79.89 Neuropathy, alcoholic G62.1 Chronic obstructive pulmonary disease, unspecified COPD type J44.9 Acute exacerbation of chronic obstructive airways disease J44.1 Acute respiratory failure with hypoxemia J96.01 Nicotine dependence, cigarettes, with other nicotine-induced disorders F17.218
[2023-09-22 10:57] LABS: D Dimer 0.97 ug/mLFEU (0-0.59)
--- NOTE | 2023-09-22 19:18 | PC.NURSE ---
patient was discharge with home oxygen delievered by Ana Laura barrow picked patient up at main entrance at 1918. Patient was outside smoking when he signed discharge paperwork and nurse kyleigh sylvester rn went over discharge paperwork with him. Medications were sent to [facility] in [place]. Patient aware.
== END 2023-09-22 19:18 | disposition home or self-care (01) | DRG 291 ==
LOC: ER 20:19 → CSU 20:19
PROVIDERS: Admitting Provider Internal Medicine; Emergency Provider Emergency Medicine; PCP Internal Medicine; Visit Provider Internal Medicine
DX: I11.0 Hypertensive heart disease with heart failure (principal); J18.9 Pneumonia, unspecified organism; J96.01 Acute respiratory failure with hypoxia; F10.288 Alcohol dependence with other alcohol-induced disorder; I50.9 Heart failure, unspecified; F17.210 Nicotine dependence, cigarettes, uncomplicated; F32.A Depression, unspecified; F41.9 Anxiety disorder, unspecified; Z91.199 Patient's noncompliance with other medical treatment and regimen due to unspecified reason; G62.1 Alcoholic polyneuropathy; Z99.81 Dependence on supplemental oxygen
CPT/HCPCS: 36415; 36600; 71045; 80048; 80051; 80053; 80307; 82330; 82805; 83735; 83880; 84100; 84145; 84443; 85025; 85378; 86140; 93005; 93306; 94640; 94760; 96372; 96374; 96375; 96376; 99285; J0456; J0696; J1650; J1940; J2060; J2919; J7050; J7613; J7626; Q0144

== ENCOUNTER 2023-09-25 19:15 | Emergency (ER) | payer MEDICAID, SELFPAY ==
--- NOTE | 2023-09-25 19:21 | XRR_ITS ---
PROCEDURE INFORMATION: Exam: XR Chest Exam date and time: 09/25/2023 8:16 PM Age: 62 years old Clinical indication: Shortness of breath TECHNIQUE: Imaging protocol: Radiologic exam of the chest. Views: 1 view. COMPARISON: CR (CHEST, ) 09/20/2023 6:49 PM FINDINGS: Lungs: There is lung emphysema. There is patchy opacification in the lung bases which has mildly improved. No new areas of lung consolidation. Pleural spaces: There is a small left pleural effusion/pleural thickening. No pneumothorax. Heart/Mediastinum: Unremarkable. No cardiomegaly. Bones/joints: There are old right rib fractures. No acute fracture. XR/XR chest 1V portable [id number] IMPRESSION: There is patchy opacification in the lung bases which has mildly improved. No new areas of lung consolidation.
--- NOTE | 2023-09-25 19:22 | ECG_ITS ---
[facility] Test Date: 2023-09-25 Pat Name: Vasyl Reis Department: Room: Gender: Male Law Office Assistant: : 1960 Requested By: Halley Deluna Order Number: [id number] Agustin MD: Hermann Nava M.D. Measurements Intervals [place] Rate: 96 P: 83 MN: 160 QRS: 80 QRSD: 75 T: 77 QT: 396 QTc: 502 Interpretive Statements SINUS RHYTHM MODERATE T-WAVE ABNORMALITY, CONSIDER ANTERIOR ISCHEMIA [-0.1+ mV T-WAVE IN V3/V4] Compared to ECG 09/21/2023 00:35:44 T-wave abnormality now present Possible ischemia now present Sinus tachycardia no longer present Ventricular premature complex(es) no longer present ST (T wave) deviation no longer present Electronically Signed On 09-26-2023 21:34:35 CDT by Hermann Nava M.D. [id number]
[2023-09-25 19:31] VITALS: BP 106/68; PULSE 91; RESP 20; O2SAT 98; BMI 18.4
[2023-09-25 19:38] LABS: ABG PCO2 42.1 mmHg (35-45); ABG PH Result 7.51 (7.35-7.45); Alveolar-Arterial Oxygen Gradi 2.9 mmHg (5-10); Arterial Blood Gas Hematocrit 37.2 % (42-52); Base Excess ABG 9.2 mmol/L (-2.0-2.0); Blood Gas Allen Test Pos; Blood Gas Sample Site Radial, right; Blood Gas Sample Type Arterial; Carboxyhemoglobin 6.4 %THgb (0.4-20.1); HCO3 ABG 33.3 mmol/L (22-26); HGB O2 Sat 89.6 % (95-100); Ionized Calcium Level - ABG 1.1 mmol/L (1.1-1.4); Methemoglobin 0.6 % (0.4-1.5); Oxygen Device NC; Oxygen Saturation ABG 96.3; PO2 ABG 74.6 mmHg (80.0-100.0); Potassium Level - ABG 3.4 mmol/L (3.5-5.0); Total Hemoglobin 12.1 g/dL (14-18)
[2023-09-25 19:44] VITALS: PULSE 110; RESP 18; O2SAT 97
[2023-09-25] MEDS: albuterol 2.5 mg/3 mL Neb INHALATION (19:44)
[2023-09-25] MEDS: ipratropium-albuterol 3 mL Neb INHALATION (19:44)
[2023-09-25 19:50] VITALS: PULSE 94
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
[2023-09-25 20:13] LABS: Basophils % 0.3 %; Eosinophils # 0.1 10^3/uL (0.0-0.8); Eosinophils % 1.1 %; Lymphocytes # 1.5 10^3/uL (0.8-4.8); Lymphocytes % 18.6 %; Mean Corpuscular HGB Conc 32.2 g/dL (30-55); Mean Corpuscular Volume 99.3 fl (82-101); Mean Platelet Volume 9.7 fL (7.4-10.4); Monocytes # 0.7 10^3/uL (0.2-0.9); Monocytes % 8.2 %; Neutrophils # 5.63 10^3/uL (1.8-7.7); Neutrophils % 71.3 %; Nucleated Red Blood Cells % 0 %; Platelet Count 468 10^3/cmm (157-399); Red Blood Count 4.13 10^6/uL (3.85-5.65); Red Cell Distribution Width 16.9 % (12.1-15.1)
[2023-09-25] MEDS: methylPREDNISolone sod succ 125 mg/2 mL INJ IVP (20:32)
[2023-09-25 20:33] LABS: Troponin(5th) Baseline 9 ng/L (0-15)
[2023-09-25 20:34] LABS: Lactic Sepsis W/Reflex 2.4 mmol/L (0.5-2.2)
[2023-09-25 20:35] VITALS: BP 106/68; PULSE 106; RESP 30; O2SAT 95
[2023-09-25 20:35] LABS: Alcohol Level 18 mg/dL (0-10)
[2023-09-25 20:45] LABS: NT Pro B Type Natriuretic Pept 4502 pg/mL (0-125); Procalcitonin 0.03 ng/mL (0-0.5)
[2023-09-25 20:57] LABS: Alanine Aminotransferase 29 U/L (0-41); Alkaline Phosphatase 90 U/L (40-130); Anion Gap 18.9 (5-19); Aspartate Amino Transferase 35 U/L (0-40); Blood Urea Nitrogen 15 mg/dL (8-23); Carbon Dioxide 30 mmol/L (22-29); Chloride 91 mmol/L (98-107); Creatinine Clr Calc Pharmacy 117.5981; Globulin 2.9 g/dL (1.3-4.6); Glomerular Filtration Rate 137.4 mL/min (90-130); Glucose 123 mg/dL (65-115); Osmolality Calculated 284 mOsm/kg (285-295); Potassium 3.9 mmol/L (3.5-5.1); Sodium 136 mmol/L (136-145); Total Bilirubin 0.3 mg/dL (0.15-1.2); Total Protein 6.9 g/dL (6.6-8.7)
[2023-09-25] MEDS: ibuprofen 600 mg Tablet PO (21:47)
[2023-09-25 21:51] LABS: Reflex Lactate Order REFLEX LACTIC ORDERD
== END 2023-09-25 22:28 | disposition home or self-care (01) ==
PROVIDERS: Emergency Provider Emergency Medicine; PCP Internal Medicine
DX: J44.9 Chronic obstructive pulmonary disease, unspecified (principal); J96.11 Chronic respiratory failure with hypoxia; F17.210 Nicotine dependence, cigarettes, uncomplicated; I10 Essential (primary) hypertension
CPT/HCPCS: 36415; 36600; 71045; 80051; 80053; 80307; 82330; 82805; 83605; 83880; 84145; 84484; 85025; 86140; 87040; 93005; 94640; 96374; 99285; J2919; J7613

== ENCOUNTER 2023-10-22 00:47 | Emergency (ER) | payer MEDICAID, SELFPAY ==
[2023-10-22 00:47] VITALS: BP 91/51; PULSE 96; RESP 15; TEMP 36.4; O2SAT 83; BMI 19.8
--- NOTE | 2023-10-22 00:50 | XRR_ITS ---
PROCEDURE INFORMATION: Exam: XR Chest Exam date and time: 10/22/2023 1:01 AM Age: 62 years old Clinical indication: Angina and cough; Additional info: Chest pain TECHNIQUE: Imaging protocol: Radiologic exam of the chest. Views: 1 view. COMPARISON: CR (CHEST, ) 09/25/2023 8:16 PM FINDINGS: Lungs: No focal consolidation or other acute appearing pulmonary opacity. Bibasal atelectasis versus scarring. Pleural spaces: No pleural effusion or pneumothorax noted. Heart/Mediastinum: There is no cardiomegaly. Bones/joints: No acute osseous abnormality. Old healed right rib fractures. XR/XR chest 1V portable [id number] IMPRESSION: No acute cardiopulmonary disease.
--- NOTE | 2023-10-22 00:52 | ECG_ITS ---
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 Measurements Intervals [place] Rate: 89 P: 82 OR: 177 QRS: 85 QRSD: 85 T: 83 QT: 341 QTc: 417 Interpretive Statements SINUS RHYTHM Compared to ECG 09/25/2023 19:45:36 T-wave abnormality no longer present Possible ischemia no longer present Electronically Signed On 10-22-2023 23:22:01 CDT by Karen Villarreal M.D. [email or web address] or [id number]
[2023-10-22 00:56] VITALS: O2SAT 94
[2023-10-22] MEDS: sodium chloride 0.9% 1,000 ML 999 ML IV (01:06)
[2023-10-22] MEDS: methylPREDNISolone sod succ 125 mg/2 mL INJ IVP (01:06)
[2023-10-22 01:20] VITALS: PULSE 84; RESP 18; O2SAT 99
[2023-10-22] MEDS: albuterol 2.5 mg/3 mL Neb INHALATION (01:21)
[2023-10-22] MEDS: ipratropium-albuterol 3 mL Neb INHALATION (01:21)
[2023-10-22 01:26] LABS: Basophils % 0.1 %; Eosinophils % 0.5 %; Hematocrit 35.2 % (37-53); Lymphocytes # 2.1 10^3/uL (0.8-4.8); Lymphocytes % 25.5 %; Mean Corpuscular HGB Conc 32.1 g/dL (30-55); Mean Corpuscular Hemoglobin 32.9 pg (27-33); Mean Corpuscular Volume 102.6 fl (82-101); Mean Platelet Volume 9.9 fL (7.4-10.4); Monocytes # 0.7 10^3/uL (0.2-0.9); Monocytes % 8.3 %; Neutrophils % 65.4 %; Nucleated Red Blood Cells % 0 %; Platelet Count 305 10^3/cmm (157-399); Red Blood Count 3.43 10^6/uL (3.85-5.65); Red Cell Distribution Width 15.9 % (12.1-15.1); White Blood Count 8.27 10^3/uL (3.29-11.43)
[2023-10-22 01:27] LABS: Troponin(5th) Baseline 17 ng/L (0-15)
[2023-10-22 01:30] VITALS: BP 109/83; PULSE 88; PULSE 97; RESP 16; O2SAT 97
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
[2023-10-22 01:41] LABS: Alanine Aminotransferase 16 U/L (0-41); Albumin Level 4.1 g/dL (3.5-5.2); Alkaline Phosphatase 72 U/L (40-130); Anion Gap 18.7 (5-19); Aspartate Amino Transferase 21 U/L (0-40); Blood Urea Nitrogen 11 mg/dL (8-23); Calcium 8.7 mg/dL (8.5-10.5); Carbon Dioxide 24 mmol/L (22-29); Chloride 104 mmol/L (98-107); Creatinine Clr Calc Pharmacy 167.0124; Globulin 2.3 g/dL (1.3-4.6); Glomerular Filtration Rate 169.6 mL/min (90-130); Glucose 90 mg/dL (65-115); Osmolality Calculated 293 mOsm/kg (285-295); Potassium 4.7 mmol/L (3.5-5.1); Sodium 142 mmol/L (136-145); Total Bilirubin 0.2 mg/dL (0.15-1.2); Total Protein 6.4 g/dL (6.6-8.7)
[2023-10-22 01:43] LABS: Alcohol Level 303 mg/dL (0-10); NT Pro B Type Natriuretic Pept 576 pg/mL (0-125)
[2023-10-22 02:00] LABS: ABG PCO2 50.4 mmHg (35-45); ABG PH Result 7.32 (7.35-7.45); Arterial Blood Gas Hematocrit 33.3 % (42-52); Base Excess ABG -0.5 mmol/L (-2.0-2.0); Blood Gas Allen Test Pos; Blood Gas Sample Site Radial, left; Blood Gas Sample Type Arterial; HGB O2 Sat 93.7 % (95-100); Ionized Calcium Level - ABG 1.1 mmol/L (1.1-1.4); Methemoglobin 0.4 % (0.4-1.5); Oxygen Device NC; Potassium Level - ABG 4.2 mmol/L (3.5-5.0); Total Hemoglobin 10.9 g/dL (14-18)
[2023-10-22 02:07] VITALS: BP 146/89; PULSE 96; RESP 18; O2SAT 98
[2023-10-22 05:41] VITALS: BP 137/93; PULSE 110; RESP 16; O2SAT 92
--- NOTE | 2023-10-22 05:55 | PC.NURSE ---
Taken to waiting room in wheelchair with portable O2 tank, pt on 4L [place]. Medicaid ride arranged
== END 2023-10-22 05:55 | disposition home or self-care (01) ==
PROVIDERS: Emergency Provider Emergency Medicine; PCP Internal Medicine
DX: F10.920 Alcohol use, unspecified with intoxication, uncomplicated (principal); Y90.8 Blood alcohol level of 240 mg/100 ml or more; J44.1 Chronic obstructive pulmonary disease with (acute) exacerbation; J96.11 Chronic respiratory failure with hypoxia; F17.210 Nicotine dependence, cigarettes, uncomplicated
CPT/HCPCS: 36600; 71045; 80051; 80053; 80307; 82330; 82805; 83880; 84484; 85025; 93005; 94640; 96361; 96374; 99285; J2919; J7030; J7613

== ENCOUNTER 2023-11-17 14:54 | Emergency (ER) | payer MEDICAID, SELFPAY ==
[2023-11-17 14:59] VITALS: BP 102/63; PULSE 93; RESP 18; TEMP 36.7; O2SAT 94; BMI 19.8
--- NOTE | 2023-11-17 15:18 | CT_ITS ---
WS: [id number] CT HEAD NONCONTRAST HISTORY: falls TECHNIQUE: Contiguous axial imaging performed through the brain in 2.5 mm imaging. Bone and soft tiss ue windows. Sagittal and coronal reformats reviewed. All CT scans at [facility] use at least one of these dose optimization techniques: automated exposure control; mA and/or kV adjustment per pa tient size (includes targeted exams where dose is matched to clinical indication); or iterative recon struction. DLP: 1074.78 mGy.cm COMPARISON: 04/17/2022 No acute intracranial hemorrhage, midline shift or mass effect. Moderate atrophy and small vessel disease. No acute blood products. Ventricles: Normal size with no hydrocephalus. No inferior displacement of the cerebellar tonsils. Paranasal sinuses: As visualized are clear. Mastoid air cells: Well pneumatized. Calvarium and scalp: Skull is intact with no soft tissue edema or swelling. CT/CT head wo con* [id number] IMPRESSION: 1. No acute intracranial hemorrhage or edema. 2. Moderate atrophy and small vessel disease. Similar to the prior study of 04/17/2022.
[2023-11-17 15:26] LABS: Basophils # 0.1 10^3/uL (0.0-0.1); Basophils % 1.2 %; Eosinophils # 0.2 10^3/uL (0.0-0.8); Eosinophils % 2.7 %; Hematocrit 42.8 % (37-53); Lymphocytes # 2.2 10^3/uL (0.8-4.8); Lymphocytes % 32.7 %; Mean Corpuscular HGB Conc 32.2 g/dL (30-55); Mean Corpuscular Hemoglobin 32.9 pg (27-33); Mean Corpuscular Volume 101.9 fl (82-101); Mean Platelet Volume 8.9 fL (7.4-10.4); Monocytes # 0.5 10^3/uL (0.2-0.9); Monocytes % 7.6 %; Neutrophils # 3.71 10^3/uL (1.8-7.7); Neutrophils % 55.5 %; Nucleated Red Blood Cells % 0 %; Platelet Count 444 10^3/cmm (157-399); Red Cell Distribution Width 13.8 % (12.1-15.1); White Blood Count 6.69 10^3/uL (3.29-11.43)
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
[2023-11-17 15:48] LABS: Alanine Aminotransferase 12 U/L (0-41); Albumin Level 4.1 g/dL (3.5-5.2); Alkaline Phosphatase 91 U/L (40-130); Anion Gap 19.1 (5-19); Aspartate Amino Transferase 23 U/L (0-40); Blood Urea Nitrogen 10 mg/dL (8-23); Calcium 8.8 mg/dL (8.5-10.5); Carbon Dioxide 24 mmol/L (22-29); Chloride 100 mmol/L (98-107); Creatinine Clr Calc Pharmacy 167.0124; Globulin 2.9 g/dL (1.3-4.6); Glomerular Filtration Rate 169.6 mL/min (90-130); Glucose 74 mg/dL (65-115); Osmolality Calculated 286 mOsm/kg (285-295); Potassium 4.1 mmol/L (3.5-5.1); Sodium 139 mmol/L (136-145); Total Bilirubin 0.2 mg/dL (0.15-1.2)
[2023-11-17 15:52] LABS: INR 0.96 (0.8-1.2)
[2023-11-17 15:53] LABS: Partial Thromboplastin Time 30.7 SECONDS (23.9-36.7)
[2023-11-17 15:55] LABS: Alcohol Level 330 mg/dL (0-10)
[2023-11-17 16:10] LABS: Ammonia 26 umol/L (16-60)
[2023-11-17 16:30] VITALS: BP 125/84; PULSE 74; O2SAT 91
[2023-11-17 16:38] LABS: Charge for UA Resulting for Rev
[2023-11-17 16:42] LABS: Bilirubin Urine Negative (Negative); Blood Urine Negative (Negative); Glucose Urine UA Negative (Normal); Ketones Urine Negative (Negative); Leukocyte Esterase Urine Negative (Negative); Nitrate Urine Negative (Negative); Protein Urine Negative (Negative); Specific Gravity, Urine 1.008 (1.005-1.030); Urine Appearance Clear (CLEAR); Urine Color Yellow (Yellow)
[2023-11-17 18:00] VITALS: BP 125/84; PULSE 74; RESP 18; TEMP 36.7; O2SAT 91
== END 2023-11-17 18:01 | disposition home or self-care (01) ==
PROVIDERS: Emergency Provider Family Medicine; PCP Internal Medicine
DX: F10.120 Alcohol abuse with intoxication, uncomplicated (principal); Y90.8 Blood alcohol level of 240 mg/100 ml or more; G62.1 Alcoholic polyneuropathy; G31.2 Degeneration of nervous system due to alcohol; F17.210 Nicotine dependence, cigarettes, uncomplicated; J44.9 Chronic obstructive pulmonary disease, unspecified; I10 Essential (primary) hypertension
CPT/HCPCS: 36415; 70450; 80053; 80307; 81003; 81015; 82140; 85025; 85610; 85730; 99284

== ENCOUNTER 2024-04-12 21:28 | Emergency (ER) | payer MEDICAID, SELFPAY ==
[2024-04-12 21:28] VITALS: BP 127/90; PULSE 79; RESP 16; TEMP 36.7; O2SAT 95; BMI 18.4
--- NOTE | 2024-04-12 21:46 | XRR_ITS ---
PROCEDURE INFORMATION: Exam: XR Chest Exam date and time: 04/12/2024 10:03 PM Age: 63 years old Clinical indication: Injury or trauma; Fall; Blunt trauma (contusions or hematomas); Additional info: Fall with altered mental status TECHNIQUE: Imaging protocol: Radiologic exam of the chest. Views: 1 view. COMPARISON: CR (CHEST, ) 10/22/2023 1:01 AM FINDINGS: Lungs: No consolidation. Pleural spaces: No large pleural effusion. No pneumothorax. Heart/Mediastinum: No cardiomegaly. Bones/joints: Multiple chronic right-sided rib fracture deformities. No visible acute fracture. XR/XR chest 1V portable [id number] IMPRESSION: No acute findings.
--- NOTE | 2024-04-12 21:46 | CTR_ITS ---
PROCEDURE INFORMATION: Exam: CT Cervical Spine Without Contrast Exam date and time: 04/12/2024 10:13 PM Age: 63 years old Clinical indication: Injury or trauma; Fall; Blunt trauma; Additional info: Fall with AMS TECHNIQUE: Imaging protocol: Computed tomography of the cervical spine without contrast. Radiation optimization: All CT scans at this facility use at least one of these dose optimization techniques: automated exposure control; mA and/or kV adjustment per patient size (includes targeted exams where dose is matched to clinical indication); or iterative reconstruction. COMPARISON: CT cervical spin wo con* [id number] 11/14/2021 7:33 PM RADIATION DOSE METRICS: Total DLP (mGy-cm): 159.77 FINDINGS: Bones: Straightening of the normal cervical lordosis. Alignment is otherwise intact. Fusion of the posterior elements of C3 and C4 on the right. No evidence of acute fracture. Multilevel degenerative change. Lungs: Severe emphysematous changes in the pulmonary apices. Soft tissues: The soft tissues are within normal limits. CT/CT cervical spin wo con* [id number] IMPRESSION: No evidence of acute fracture.
--- NOTE | 2024-04-12 21:46 | CTR_ITS ---
PROCEDURE INFORMATION: Exam: CT Head Without Contrast Exam date and time: 04/12/2024 10:10 PM Age: 63 years old Clinical indication: Injury or trauma; Fall; Blunt trauma (contusions or hematomas); Additional info: Fall with head injury with AMS TECHNIQUE: Imaging protocol: Computed tomography of the head without contrast. Radiation optimization: All CT scans at this facility use at least one of these dose optimization techniques: automated exposure control; mA and/or kV adjustment per patient size (includes targeted exams where dose is matched to clinical indication); or iterative reconstruction. COMPARISON: CT head wo con* [id number] 11/17/2023 3:27 PM RADIATION DOSE METRICS: Total DLP (mGy-cm): 1084.29 FINDINGS: Brain: There is [id number] cerebral atrophy. There are [id number] deep white matter microangiopathic ischemic changes. No acute hemorrhage is identified. No mass or mass effect is identified. Cerebral ventricles: Moderately dilated ventricles secondary to atrophy. Paranasal sinuses: The paranasal sinuses are clear. Mastoid air cells: The mastoid air cells are clear. Bones: No acute osseous abnormalities are seen. Soft tissues: The soft tissues are within normal limits. CT/CT head wo con* [id number] IMPRESSION: 1. No acute intracranial pathology. 2. Senescent changes.
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
--- NOTE | 2024-04-12 21:51 | ECG_ITS ---
[facility] Test Date: 2024-04-12 Pat Name: Vasyl Reis Department: Room: Gender: Male Recovery Engineer: : 1960 Requested By: Mario Waller Order Number: [id number] Velez MD: Hermann Nava M.D. Measurements Intervals [place] Rate: 71 P: 81 AL: 197 QRS: 83 QRSD: 81 T: 83 QT: 435 QTc: 473 Interpretive Statements SINUS RHYTHM Compared to ECG 10/22/2023 00:53:04 No significant changes Electronically Signed On 04-14-2024 12:31:45 REGIONAL CLINICAL DIRECTOR by Hermann Nava M.D. [id number]
[2024-04-12] MEDS: sodium chloride 0.9% 1,000 ML 999 ML IV (21:56)
[2024-04-12 22:37] LABS: Basophils # 0.1 10^3/uL (0.0-0.1); Basophils % 0.9 %; Eosinophils # 0.3 10^3/uL (0.0-0.8); Eosinophils % 4.2 %; Hematocrit 40.2 % (37-53); Lymphocytes # 2.2 10^3/uL (0.8-4.8); Lymphocytes % 32.2 %; Mean Corpuscular HGB Conc 32.3 g/dL (30-55); Mean Corpuscular Hemoglobin 31.9 pg (27-33); Mean Corpuscular Volume 98.8 fl (82-101); Mean Platelet Volume 8.9 fL (7.4-10.4); Monocytes # 0.9 10^3/uL (0.2-0.9); Monocytes % 12.7 %; Neutrophils # 3.46 10^3/uL (1.8-7.7); Neutrophils % 49.7 %; Nucleated Red Blood Cells % 0 %; Platelet Count 430 10^3/cmm (157-399); Red Blood Count 4.07 10^6/uL (3.85-5.65); Red Cell Distribution Width 13.9 % (12.1-15.1); White Blood Count 6.95 10^3/uL (3.29-11.43)
[2024-04-12 22:53] LABS: Bilirubin Urine Negative (Negative); Blood Urine Negative (Negative); Glucose Urine UA Negative (Normal); Ketones Urine Negative (Negative); Leukocyte Esterase Urine Negative (Negative); Nitrate Urine Negative (Negative); Protein Urine Negative (Negative); Urine Appearance Clear (CLEAR); Urine Color Yellow (Yellow)
[2024-04-12 22:56] LABS: Troponin(5th) Baseline 14 ng/L (0-15)
[2024-04-12 22:57] LABS: Add Urine Microscopic? YES; Bacteria Urine None Seen /hpf; RBC Urine 0-2 /hpf (0-2); Squamous Epithelial Cell Urine 0-5 /hpf (0-5); WBC Urine 0-5 /hpf (0-5)
[2024-04-12 23:00] LABS: Amphetamines Screen Urine Negative (Negative); Barbiturates Screen Urine Negative (Negative); Benzodiazepines Screen Urine Negative (Negative); Cocaine Screen Urine Negative (Negative); Opiate Screen Urine Negative (Negative); PCP Screen Urine Negative (Negative); THC Screen Urine Negative (Negative)
[2024-04-12 23:06] LABS: Alanine Aminotransferase 10 U/L (0-41); Albumin Level 3.9 g/dL (3.5-5.2); Alcohol Level 203 mg/dL (0-10); Alkaline Phosphatase 76 U/L (40-130); Anion Gap 20.2 (5-19); Aspartate Amino Transferase 20 U/L (0-40); Blood Urea Nitrogen 10 mg/dL (8-23); C Reactive Protein 9.1 mg/L (0.0-4.9); Calcium 8.6 mg/dL (8.5-10.5); Carbon Dioxide 24 mmol/L (22-29); Chloride 101 mmol/L (98-107); Creatinine Clr Calc Pharmacy 116.1282; Globulin 2.4 g/dL (1.3-4.6); Glucose 73 mg/dL (65-115); Osmolality Calculated 290 mOsm/kg (285-295); Potassium 4.2 mmol/L (3.5-5.1); Sodium 141 mmol/L (136-145); Total Bilirubin 0.2 mg/dL (0.15-1.2); Total Protein 6.3 g/dL (6.6-8.7)
[2024-04-12 23:58] VITALS: BP 127/83; PULSE 77; RESP 16; O2SAT 90
--- NOTE | 2024-04-12 23:59 | PC.NURSE ---
BRETT [facility]UET[facility] ASSUMED CARE OF PT AT 2300
[2024-04-13] VITALS (23 sets, daily range): BP systolic 149–184; BP diastolic 93–114; PULSE 67–94; RESP 16–22; O2SAT 91–98
[2024-04-13] MEDS: metoprolol tartrate 25 mg Tablet PO (06:40)
== END 2024-04-13 06:49 | disposition home or self-care (01) ==
PROVIDERS: Emergency Provider Emergency Medicine; PCP Internal Medicine
DX: F10.920 Alcohol use, unspecified with intoxication, uncomplicated (principal); Y90.7 Blood alcohol level of 200-239 mg/100 ml; W19.XXXA Unspecified fall, initial encounter; F17.210 Nicotine dependence, cigarettes, uncomplicated; J44.9 Chronic obstructive pulmonary disease, unspecified; I10 Essential (primary) hypertension; E78.5 Hyperlipidemia, unspecified
CPT/HCPCS: 36415; 70450; 71045; 72125; 80053; 80306; 80307; 81001; 84484; 85025; 86140; 93005; 99285; J7030

== ENCOUNTER 2024-05-01 20:39 | Inpatient (IN) | payer MEDICAID, SELFPAY ==
[2024-05-01 20:40] VITALS: BP 120/76; PULSE 77; RESP 18; TEMP 36.4; O2SAT 91; BMI 22.0
[2024-05-01] MEDS: sodium chloride 0.9% 1,000 ML 999 ML IV (21:43)
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
[2024-05-02] VITALS (22 sets, daily range): BP systolic 108–155; BP diastolic 68–92; PULSE 65–124; RESP 15–20; TEMP 36.4–37.1; O2SAT 90–99
[2024-05-02 00:07] LABS: Basophils % 0.6 %; Eosinophils # 0.1 10^3/uL (0.0-0.8); Eosinophils % 1.7 %; Hematocrit 36.5 % (37-53); Lymphocytes # 1.8 10^3/uL (0.8-4.8); Lymphocytes % 33.1 %; Mean Corpuscular HGB Conc 32.9 g/dL (30-55); Mean Corpuscular Hemoglobin 32.5 pg (27-33); Mean Corpuscular Volume 98.9 fl (82-101); Mean Platelet Volume 10.2 fL (7.4-10.4); Monocytes # 0.6 10^3/uL (0.2-0.9); Monocytes % 11.2 %; Neutrophils # 2.87 10^3/uL (1.8-7.7); Neutrophils % 53.2 %; Nucleated Red Blood Cells % 0 %; Platelet Count 229 10^3/cmm (157-399); Red Blood Count 3.69 10^6/uL (3.85-5.65); Red Cell Distribution Width 15.8 % (12.1-15.1); White Blood Count 5.38 10^3/uL (3.29-11.43)
[2024-05-02 00:19] LABS: Amphetamines Screen Urine Negative (Negative); Barbiturates Screen Urine Negative (Negative); Benzodiazepines Screen Urine Negative (Negative); Cocaine Screen Urine Negative (Negative); Opiate Screen Urine Negative (Negative); PCP Screen Urine Negative (Negative); THC Screen Urine Negative (Negative)
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
--- NOTE | 2024-05-02 01:13 | PC.NURSE ---
96 Pt served with copy of rights @ 0005 by this RN and Security. Pt alert and oriented, pleasant and calm. Pt stated that he was not SI but does not believe he can live by himself anymore. Pt asked this nurse if he could go to a senior care after his hospitalization.
[2024-05-02 01:23] LABS: Acetaminophen < 5.0 ug/mL (10-30); Alanine Aminotransferase 13 U/L (0-41); Albumin Level 4.2 g/dL (3.5-5.2); Alcohol Level 259 mg/dL (0-10); Alkaline Phosphatase 80 U/L (40-130); Anion Gap 18.5 (5-19); Aspartate Amino Transferase 34 U/L (0-40); Blood Urea Nitrogen 11 mg/dL (8-23); Calcium 9.1 mg/dL (8.5-10.5); Carbon Dioxide 28 mmol/L (22-29); Chloride 99 mmol/L (98-107); Creatinine Clr Calc Pharmacy 143.0778; Globulin 3.1 g/dL (1.3-4.6); Glucose 109 mg/dL (65-115); Osmolality Calculated 294 mOsm/kg (285-295); Potassium 3.5 mmol/L (3.5-5.1); Salicylate < 0.3 mg/dL (3-10); Sodium 142 mmol/L (136-145); Total Bilirubin 0.3 mg/dL (0.15-1.2); Total Protein 7.3 g/dL (6.6-8.7)
[2024-05-02 03:19] LABS: Procalcitonin 0.06 ng/mL (0-0.5)
[2024-05-02] MEDS: ipratropium-albuterol 3 mL Neb INHALATION ×2 (03:20→07:28)
--- NOTE | 2024-05-02 03:52 | ECG_ITS ---
[facility] Date: 2024-05-02 Pat Name: Vasyl Reis Department: Room: 250 Gender: Male Lottery Sales Clerk: : 1960 Requested By: Kenneth Lal Order Number: [id number] Agustin MD: SELMA SULLIVAN Measurements Intervals [place] Rate: 100 P: 83 [place]: 176 QRS: 76 QRSD: 82 T: 85 QT: 364 QTc: 471 Interpretive Statements SINUS TACHYCARDIA NONSPECIFIC T-WAVE ABNORMALITY ABNORMAL RHYTHM ECG Compared to ECG 04/12/2024 22:02:01 T-wave abnormality now present Sinus rhythm no longer present Electronically Signed On 05-02-2024 23:12:18 UPSET WELDING MACHINE OPERATOR by SELMA SULLIVAN [email or web address]
[2024-05-02] MEDS: acetaminophen 500 mg Tablet 1000 MG PO (04:36)
[2024-05-02 06:03] LABS: Troponin(5th) Baseline 13 ng/L (0-15)
[2024-05-02] MEDS: folic acid 1 mg Tablet PO (08:28)
[2024-05-02] MEDS: thiamine 100 mg Tablet PO (08:28)
[2024-05-02] MEDS: multivitamin therapeutic Tablet 1 TAB PO (08:28)
[2024-05-02 08:30] LABS: Troponin 5 2HR 15.32 ng/L (0-15); Troponin 5 2HR Delta 2.32 ABS# (0-10)
[2024-05-02 11:38] LABS: Troponin 5 6HR 11.31 ng/L (0-15)
[2024-05-02 11:42] LABS: Troponin 5 6HR Delta -1.69 ng/L (0-12)
--- NOTE | 2024-05-02 12:01 | XRR_ITS ---
PROCEDURE INFORMATION: Exam: XR Right Wrist Exam date and time: 05/02/2024 1:04 PM Age: 63 years old Clinical indication: Injury or trauma; Fall; Blunt trauma (contusions or hematomas); Wrist; Right TECHNIQUE: Imaging protocol: Radiologic exam of the right wrist. Views: 1 or 2 views. COMPARISON: No relevant prior studies available. FINDINGS: Limitations: Study is limited two views of the right wrist. Bones/joints: Mild degenerative changes along the radial aspect of the wrist joint. There is deformity involving the mid shaft of the 4th metacarpal that appears chronic secondary to old fracture which should be confirmed with history. No acute fracture deformity or malalignment detected. Soft tissues: Unremarkable. XR/XR wrist RT 2V [id number] IMPRESSION: 1. Limited study. 2. Presumed old healed fracture 4th metacarpal which should be confirmed with history.
[2024-05-02] MEDS: pantoprazole 40 mg SDV IVP (12:59)
[2024-05-02] MEDS: acetaminophen 325 mg Tablet PO (12:59)
[2024-05-02] MEDS: folic acid 1 MG, multivitamin inj 10 ML, thiamine 100 MG in sodium chloride 0.9% 1,000 ML 252.8 MG IV (12:59)
--- NOTE | 2024-05-02 14:46 | W.PM.EVENTAC ---
Event Note Event Note: Admitted overnight. Laying comfortably in bed. Sitter at bedside. Complaining of pain in back at the wrist. States he consumes alcohol once or twice a week. Last consume alcohol day before yesterday. Likely consumes whiskey. Lives by himself in the property which he shares with his brother. Denies any active suicidal ideations. Plan: Placed on 96-hour hold last night. Will await psychiatry recommendations. Banana bag. [facility] protocol. Restart home medications including duloxetine, gabapentin, metoprolol, trazodone. Add Tylenol for pain. Check right wrist x-ray. Physical therapy.
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
[2024-05-02] MEDS: metoprolol tartrate 25 mg Tablet PO (17:57)
[2024-05-02] MEDS: gabapentin 300 mg Capsule PO ×2 (17:58→20:23)
[2024-05-02] MEDS: trazodone 50 mg Tablet PO (20:23)
[2024-05-03] MEDS: acetaminophen 325 mg Tablet PO ×2 (02:46→09:35)
[2024-05-03 04:00] VITALS: BP 137/83; PULSE 89; RESP 18; TEMP 36.6; O2SAT 96
--- NOTE | 2024-05-03 04:00 | XRR_ITS ---
PROCEDURE INFORMATION: Exam: XR Chest Exam date and time: 05/03/2024 5:14 AM Age: 63 years old Clinical indication: Smoker's cough TECHNIQUE: Imaging protocol: Radiologic exam of the chest. Views: 1 view. COMPARISON: CR (CHEST, ) 04/12/2024 10:03 PM FINDINGS: Lungs: Mild emphysematous COPD. Pleural spaces: Unremarkable. No pleural effusion. No pneumothorax. Heart/Mediastinum: Unremarkable. No cardiomegaly. Bones/joints: Unremarkable. Deformity from healed right rib fractures stable. Other findings: No acute findings. XR/XR chest 1V portable [id number] IMPRESSION: No acute intrathoracic pathology.
[2024-05-03 04:50] VITALS: PULSE 70
[2024-05-03 05:27] LABS: Basophils # 0.1 10^3/uL (0.0-0.1); Eosinophils # 0.2 10^3/uL (0.0-0.8); Eosinophils % 3.9 %; Hematocrit 30.8 % (37-53); Lymphocytes # 1.8 10^3/uL (0.8-4.8); Lymphocytes % 29.6 %; Mean Corpuscular HGB Conc 32.8 g/dL (30-55); Mean Corpuscular Hemoglobin 32.6 pg (27-33); Mean Corpuscular Volume 99.4 fl (82-101); Mean Platelet Volume 9.7 fL (7.4-10.4); Monocytes # 0.9 10^3/uL (0.2-0.9); Monocytes % 14.7 %; Neutrophils # 3.14 10^3/uL (1.8-7.7); Neutrophils % 50.5 %; Nucleated Red Blood Cells % 0 %; Platelet Count 310 10^3/cmm (157-399); Red Cell Distribution Width 15.7 % (12.1-15.1); White Blood Count 6.21 10^3/uL (3.29-11.43)
[2024-05-03 05:56] LABS: Alanine Aminotransferase 9 U/L (0-41); Albumin Level 3.3 g/dL (3.5-5.2); Alkaline Phosphatase 73 U/L (40-130); Anion Gap 14.7 (5-19); Aspartate Amino Transferase 21 U/L (0-40); Blood Urea Nitrogen 12 mg/dL (8-23); Calcium 8.6 mg/dL (8.5-10.5); Carbon Dioxide 28 mmol/L (22-29); Chloride 101 mmol/L (98-107); Creatinine Clr Calc Pharmacy 105.5107; Globulin 2.3 g/dL (1.3-4.6); Glucose 90 mg/dL (65-115); Magnesium 1.5 mg/dL (1.7-2.3); Osmolality Calculated 287 mOsm/kg (285-295); Phosphorus 3.8 mg/dL (2.5-4.5); Potassium 4.7 mmol/L (3.5-5.1); Sodium 139 mmol/L (136-145); Total Bilirubin 0.5 mg/dL (0.15-1.2); Total Protein 5.6 g/dL (6.6-8.7)
[2024-05-03 07:51] VITALS: BP 124/79; PULSE 96; RESP 18; TEMP 36.9; O2SAT 93
[2024-05-03] MEDS: ipratropium-albuterol 3 mL Neb INHALATION (09:09)
[2024-05-03 09:10] VITALS: PULSE 72; RESP 18; O2SAT 98
[2024-05-03] MEDS: pantoprazole 40 mg SDV IVP (09:34)
[2024-05-03] MEDS: folic acid 1 mg Tablet PO (09:35)
[2024-05-03] MEDS: duloxetine 60 mg Capsule PO (09:35)
[2024-05-03] MEDS: metoprolol tartrate 25 mg Tablet PO (09:36)
[2024-05-03] MEDS: multivitamin therapeutic Tablet 1 TAB PO (09:36)
[2024-05-03] MEDS: thiamine 100 mg Tablet PO (09:36)
[2024-05-03] MEDS: gabapentin 300 mg Capsule PO ×2 (09:36→13:49)
--- NOTE | 2024-05-03 10:24 | P.DS_ITS ---
Discharge Providers Date of Admission: 05/02/24 15:44 Date of Discharge: May 03, 2024 Attending Provider at Admission: Kenneth Garcia MD Attending Provider at Discharge: Aramis Canas MD Consults: Psychiatry: Dr. De Leon Primary Care Provider: Laron Booker MD Diagnoses at Discharge Discharge Diagnosis (1) Alcohol use disorder, severe, dependence: Status: Acute (2) Panic attacks: Status: Acute Reason for Visit Reason for Visit: ams Brief History: History as per HPI: Vasyl Reis is a 63 year old male with a past medical history significant f or alcohol use disorder with abuse and prior withdrawals, COPD, tobacco use disorder, hypertension, and multiple other comorbidities who presents to the emergency department via EMS with with alcohol intoxication, altered mental status, and suicidal ideation. Apparently EMS been called for wellness check. Per report, patient drink copious amounts of liquor upon EMS arrival. He reported to EMS he wanted to no longer wanted to continue living. This prompted them to bring him to the emergency department. Patient seen evaluated in the emergency department room 8. He currently endorses symptoms of recurrent falls, generalized weakness, chronic cough, states he does not want to live much longer. He denies being active suicidal ideation to me although he is intoxicated. For his recurrent falls, he states that he will wake up on the floor. He does not remember the mechanisms of falls. He is unsure about head trauma. He does report that his right wrist aches. He denies fevers, chills, nausea or emesis. Denies other alleviating or aggravating factors. Patient has a known history of alcohol use disorder with abuse. Labs dating back to 2017 have consistently shown alcohol intoxication. Patient does endorse history with alcohol withdrawal. Hospital Course Hospital Course Patient was admitted to the hospital further evaluation and management of toxic metabolic encephalopathy in setting of alcohol abuse. On admission there was concern for suicidal ideation hence he was placed on 96-hour hold. Psychiatry was consulted who rescinded his 96-hour hold. Patient during hospitalization declined any suicidal or homicidal ideations. His hospitalization was otherwise unremarkable. He has been discharged back home on oral Protonix along with continuation of his other home medications with advised to follow-up as an outpatient with his PCP and pain management. Physical Exam Narrative: General: Patient is awake. Appears poorly kept. Frail. Conversational. Head: Normocephalic. Atraumatic. EOM intact. Dry mucous membranes. Neck: No JVD. Cardiovascular: RRR. No gallops. No murmurs. Lungs: Adequate air movement without significant wheezing. Intermittent cough. No accessory muscle use. No respiratory distress. Skin: No jaundice. No rashes. Abdomen: Normal bowel sounds, abdomen soft and nontender. Genito Urinary: Genital exam not performed since complaints not related. Rectal: Rectal exam not performed since no symptoms indicated blood loss. Extremities: No cyanosis or clubbing. Musculoskeletal: No erythematous joints. Neurological: Moves all 4 extremities. No myoclonus. Discharge Data Studies Completed and Pending Completed Studies During Hospitalization Category Date Time Status XR chest 1V portable [id number] Routine Exams 05/03/24 04:00 Completed XR wrist RT 2V [id number] Routine Exams 05/02/24 12:01 Completed Pending at discharge Category Date Time Status Vitamin B1 (Thiamine),Blood Routine Lab 05/02/24 13:23 Received Radiology Impressions Wrist X-Ray 05/02/24 12:01 IMPRESSION: 1. Limited study. 2. Presumed old healed fracture 4th metacarpal which should be confirmed with history. Chest X-Ray 05/03/24 04:00 IMPRESSION: No acute intrathoracic pathology. Laboratory Results WBC 6.21 10^3/uL (3.29-11.43) 05/03/24 04:35 RBC 3.10 10^6/uL (3.85-5.65) L 05/03/24 04:35 Hgb 10.10 g/dL (11.27-16.99) L 05/03/24 04:35 Hct 30.8 % (37-53) L 05/03/24 04:35 MCV 99.4 fl (82-101) 05/03/24 04:35 MCH 32.6 pg (27-33) 05/03/24 04:35 MCHC 32.8 g/dL (30-55) 05/03/24 04:35 RDW 15.7 % (12.1-15.1) H 05/03/24 04:35 Plt Count 310 10^3/cmm (157-399) D 05/03/24 04:35 MPV 9.7 fL (7.4-10.4) 05/03/24 04:35 Neut % (Auto) 50.5 % 05/03/24 04:35 Lymph % (Auto) 29.6 % 05/03/24 04:35 Valencia % (Auto) 14.7 % 05/03/24 04:35 Eos % (Auto) 3.9 % 05/03/24 04:35 Baso % (Auto) 1.0 % 05/03/24 04:35 Neut # (Auto) 3.14 10^3/uL (1.8-7.7) 05/03/24 04:35 Lymph # (Auto) 1.8 10^3/uL (0.8-4.8) 05/03/24 04:35 Valencia # (Auto) 0.9 10^3/uL (0.2-0.9) 05/03/24 04:35 Eos # (Auto) 0.2 10^3/uL (0.0-0.8) 05/03/24 04:35 Baso # (Auto) 0.1 10^3/uL (0.0-0.1) 05/03/24 04:35 Nucleated RBC % (auto) 0 % 05/03/24 04:35 Nucleated RBCs # 0.0 /100WBC 05/03/24 04:35 Sodium 139 mmol/L (136-145) 05/03/24 04:35 Potassium 4.7 mmol/L (3.5-5.1) 05/03/24 04:35 Chloride 101 mmol/L (98-107) 05/03/24 04:35 Carbon Dioxide 28 mmol/L (22-29) 05/03/24 04:35 Anion Gap 14.7 (5-19) 05/03/24 04:35 BUN 12 mg/dL (8-23) 05/03/24 04:35 Creatinine 0.6 mg/dL (0.7-1.2) L 05/03/24 04:35 GFR Calculation 137.0 mL/min (90-130) H 05/03/24 04:35 Glucose 90 mg/dL (65-115) 05/03/24 04:35 Calculated Osmolality 287 mOsm/kg (285-295) 05/03/24 04:35 Calcium 8.6 mg/dL (8.5-10.5) 05/03/24 04:35 Phosphorus 3.8 mg/dL (2.5-4.5) 05/03/24 04:35 Magnesium 1.5 mg/dL (1.7-2.3) L 05/03/24 04:35 Total Bilirubin 0.5 mg/dL (0.15-1.2) 05/03/24 04:35 AST 21 U/L (0-40) 05/03/24 04:35 ALT 9 U/L (0-41) 05/03/24 04:35 Alkaline Phosphatase 73 U/L (40-130) 05/03/24 04:35 Troponin T Baseline 13 ng/L (0-15) 05/02/24 05:20 Troponin T 120 Minute 15.32 ng/L (0-15) H 05/02/24 07:59 Delta Troponin T 2.32 ABS# (0-10) 05/02/24 07:59 Troponin T Hi Sens 6Hr 11.31 ng/L (0-15) 05/02/24 11:11 Troponin T Hi Sens 6Hr Delta -1.69 ng/L (0-12) L 05/02/24 11:11 Total Protein 5.6 g/dL (6.6-8.7) L 05/03/24 04:35 Albumin 3.3 g/dL (3.5-5.2) L 05/03/24 04:35 Globulin 2.3 g/dL (1.3-4.6) 05/03/24 04:35 Procalcitonin 0.06 ng/mL (0-0.5) 05/02/24 00:53 Salicylates < 0.3 mg/dL (3-10) L 05/02/24 00:53 Urine Opiates Screen Negative ng/mL (Negative) 05/01/24 23:50 Acetaminophen < 5.0 ug/mL (10-30) L 05/02/24 00:53 Ur Barbiturates Screen Negative ng/mL (Negative) 05/01/24 23:50 Ur Phencyclidine Scrn Negative ng/mL (Negative) 05/01/24 23:50 Ur Amphetamines Screen Negative ng/mL (Negative) 05/01/24 23:50 U Benzodiazepines Scrn Negative ng/mL (Negative) 05/01/24 23:50 Urine Cocaine Screen Negative ng/mL (Negative) 05/01/24 23:50 U Marijuana (THC) Screen Negative ng/mL (Negative) 05/01/24 23:50 Ethyl Alcohol 259 mg/dL (0-10) H 05/02/24 00:53 Vitals Last Vital Signs Temp 98.5 F 05/03/24 07:51 Pulse 72 05/03/24 09:10 Resp 18 05/03/24 09:10 BP 124/79 05/03/24 07:51 Pulse Ox 98 05/03/24 09:10 O2 Del Method Nasal Cannula 05/03/24 09:10 O2 Flow Rate 2 05/03/24 09:10 Discharge Plan Discharge Patient Disposition: Home Condition: Stable Prescriptions: New multivitamin with folic acid [Thera] 400 mcg Tablet 1 tab PO DAILY Qty: 30 0RF pantoprazole [Protonix] 40 mg tablet,delayed release (DR/EC) 40 mg PO QAM Qty: 30 3RF Continued trazodone 50 mg tablet 50 mg PO BEDTIME gabapentin 300 mg capsule 300 mg PO TID ipratropium-albuterol 0.5 mg-3 mg(2.5 mg base)/3 mL solution for nebulization 3 ml inhalation Q8H PRN (Reason: shortness of breath or wheezing) Qty: 180 3RF furosemide [Lasix] 20 mg tablet 20 mg PO DAILY PRN (Reason: weight gain) Qty: 60 0RF Rx Instructions: If you notice weight gain more than 3 pounds in a day or not able to lay flat potassium chloride 10 mEq tablet extended release 10 meq PO DAILY PRN (Reason: Only take when you take place) Qty: 30 0RF Rx Instructions: Only when you take Lasix magnesium oxide 400 mg (241.3 mg magnesium) tablet 400 mg PO DAILY PRN (Reason: unknown) folic acid 1 mg tablet 1 mg PO DAILY albuterol sulfate [Ventolin HFA] 90 mcg/actuation HFA aerosol inhaler 1 puff INHALATION Q4H PRN (Reason: Shortness Of Breath Or Wheezing) metoprolol tartrate 25 mg tablet 25 mg PO BID duloxetine 60 mg capsule,delayed release(DR/EC) 60 mg PO DAILY Trelegy Ellipta 100-62.5-25 mcg blister with device 1 inh INHALATION DAILY Discharge Orders: Discharge Order (Routine); Ordered 05/03/24 Ordered By: Aramis Canas Referrals: Laron Booker MD [Primary Care Provider] - 05/12/24 9:20 am Marcus George MD [Physician] - 2 weeks (We have notified your physician's clinic of the need for a follow-up appointment to be scheduled. If you have not heard from them within the next 2 business days, please call them directly. ) Discharge Diet: Advance as tolerated Discharge Activity: Resume usual activity Patient Instructions: Pantoprazole (By mouth), Abuse of Alcohol (GEN), Opioid Safety Activity Restrictions/Additional Instructions: Follow-up with a primary care provider within next 1 week. You should have a referral to see pain management. Please try to avoid alcohol use. Discharge Attestations Time Spent in Discharge Care*: greater than 30 min Specific Discharge Activities: educating patient, discussing with pcp/other providers, discussing with geriatric case manager/social workers/dc planners, documenting/other paperwork and evaluating patient/reviewing data Status at Discharge: Cognitive status at discharge: cognitively intact , Behavioral status at discharge: cooperative , Functional status at discharge: independent ambulation , Overall status at discharge: patient is back to baseline Quality Metrics Clinical Quality Measures [ No reported AMI, CVA or VTE this stay] Coding Level of Care Code 06690 Total time (in minutes) for Discharge: 50 Diagnoses Alcohol use disorder, severe, dependence F10.20 Panic attacks F41.0
[2024-05-03 12:00] VITALS: BP 156/86; PULSE 72; RESP 16; TEMP 36.7; O2SAT 97
--- NOTE | 2024-05-03 18:30 | PC.NURSE ---
Dallin was discharged earlier today around 1530. He just called the nurses station stating he needed to go to a prison and he needed oxygen . Dallin was slurring his words. This nurse explained that if he needed help, he should call 911. Dallin then stated he felt like he didn't need help right now but he might call later. This nurse asked Dallin where he lived in case he wanted me to call for him and he wouldn't give it to me. This nurse also offered to call his brother to come check on him and he told me repeatedly to not do that. Dallin then hung up the phone.
[2024-05-06 09:54] LABS: Vitamin B1 (Thiamine),Blood 564 nmol/L (78-185)
== END 2024-05-03 15:34 | disposition home or self-care (01) | DRG 896 ==
LOC: ER 21:51 → MEDSURG 05-02 02:04
PROVIDERS: Admitting Provider Internal Medicine; Emergency Provider Emergency Medicine; PCP Internal Medicine; Visit Provider Student in an Organized Health Care Education/Training Program
DX: F10.129 Alcohol abuse with intoxication, unspecified (principal); G93.41 Metabolic encephalopathy; R45.851 Suicidal ideations; Y90.8 Blood alcohol level of 240 mg/100 ml or more; F41.0 Panic disorder [episodic paroxysmal anxiety]; J44.9 Chronic obstructive pulmonary disease, unspecified; G62.1 Alcoholic polyneuropathy; G31.2 Degeneration of nervous system due to alcohol; F17.210 Nicotine dependence, cigarettes, uncomplicated; F41.9 Anxiety disorder, unspecified; F32.A Depression, unspecified; Z91.81 History of falling
CPT/HCPCS: 36415; 71045; 73100; 80053; 80306; 80307; 83735; 84100; 84145; 84425; 84484; 85025; 93005; 94640; 97110; 97116; 97161; 97167; G0378; J2470; J3411; J3490; J7030

== ENCOUNTER 2024-05-19 10:57 | Emergency (ER) | payer MEDICAID, SELFPAY ==
[2024-05-19] VITALS (7 sets, daily range): BP systolic 90–116; BP diastolic 57–77; PULSE 66–91; RESP 16–18; TEMP 36.6; O2SAT 92–99
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
--- NOTE | 2024-05-19 11:16 | XR_ITS ---
WS: [id number] Portable AP upright chest, 05/19/2024 Clinical Data: sob Comparison: Portable chest, 05/03/2024 Findings: No nodules, masses or effusions are seen. The heart is normal. The pulmonary vascularity is not increased. No pneumonia or pneumothorax is seen. The aortic arch and descending thoracic aorta show calcification and tortuosity. There is a dextroscoliosis. There are old fourth through eighth posterior lateral rib fractures. XR/XR chest 1V portable [id number] Impression: Atherosclerosis.
[2024-05-19] MEDS: thiamine 100 mg/mL 2mL SDV IVP (11:18)
[2024-05-19 11:36] LABS: Basophils % 0.5 %; Eosinophils # 0.2 10^3/uL (0.0-0.8); Eosinophils % 2.4 %; Lymphocytes # 2.1 10^3/uL (0.8-4.8); Mean Corpuscular HGB Conc 33.5 g/dL (30-55); Mean Corpuscular Hemoglobin 32.6 pg (27-33); Mean Corpuscular Volume 97.4 fl (82-101); Mean Platelet Volume 9.6 fL (7.4-10.4); Monocytes % 15.9 %; Neutrophils % 47.9 %; Nucleated Red Blood Cells % 0 %; Platelet Count 436 10^3/cmm (157-399); Red Cell Distribution Width 15.6 % (12.1-15.1); White Blood Count 6.27 10^3/uL (3.29-11.43)
[2024-05-19 12:00] LABS: Alanine Aminotransferase 26 U/L (0-41); Albumin Level 3.7 g/dL (3.5-5.2); Alkaline Phosphatase 62 U/L (40-130); Anion Gap 13.5 (5-19); Aspartate Amino Transferase 27 U/L (0-40); Blood Urea Nitrogen 7 mg/dL (8-23); Calcium 8.4 mg/dL (8.5-10.5); Carbon Dioxide 31 mmol/L (22-29); Chloride 98 mmol/L (98-107); Globulin 2.8 g/dL (1.3-4.6); Glomerular Filtration Rate 218.7 mL/min (90-130); Glucose 78 mg/dL (65-115); Osmolality Calculated 285 mOsm/kg (285-295); Potassium 3.5 mmol/L (3.5-5.1); Sodium 139 mmol/L (136-145); Total Bilirubin 0.2 mg/dL (0.15-1.2); Total Protein 6.5 g/dL (6.6-8.7)
[2024-05-19 12:04] LABS: Alcohol Level 338 mg/dL (0-10)
--- NOTE | 2024-05-19 13:07 | PC.NURSE ---
Pt removed his IV himself and refused IV fluids, attempted to call contacts to find this pt a ride, no answer on either contact, JOSEE left
--- NOTE | 2024-05-19 13:07 | PC.PHAR ---
Pt was discharged from [facility] 08/10/22. Discharged from 05/03/24 with 2 new rx's Multivitamin thera M and Protonix 40mg.
[2024-05-19] MEDS: sodium chloride 0.9% 1,000 ML 999 ML IV (13:43)
--- NOTE | 2024-05-19 17:58 | PC.NURSE ---
Patient ambulated to the end of the hallway and back with this nurse without difficulty.
== END 2024-05-19 18:14 | disposition home or self-care (01) ==
PROVIDERS: Emergency Provider Emergency Medicine; PCP Internal Medicine
DX: F10.929 Alcohol use, unspecified with intoxication, unspecified (principal); Y90.8 Blood alcohol level of 240 mg/100 ml or more; F17.210 Nicotine dependence, cigarettes, uncomplicated; J44.9 Chronic obstructive pulmonary disease, unspecified; I10 Essential (primary) hypertension
CPT/HCPCS: 36415; 71045; 80053; 80307; 85025; 96361; 96374; 99284; J3411; J7030

== ENCOUNTER 2024-06-03 22:06 | Emergency (ER) | payer MEDICAID, SELFPAY ==
[2024-06-03 22:07] VITALS: BP 90/60; PULSE 95; RESP 16; TEMP 36.9; O2SAT 97; BMI 18.4
--- NOTE | 2024-06-03 22:24 | PC.NURSE ---
Patient assisted to room and onto bed with 2 assist. Patient was educated to not get up on his own and use call light if he needed anything. Call light within reach, 2 bed rails up at this time.
--- NOTE | 2024-06-03 22:51 | CTR_ITS ---
PROCEDURE INFORMATION: Exam: CT Neck With Contrast Exam date and time: 06/03/2024 11:05 PM Age: 63 years old Clinical indication: Mass, lump, or swelling in neck; Prior surgery; Surgery date: 6+ months; Surgery type: Facial surgery due to dog bite. C/O left sided dental pain with submandibular swelling. ; Additional info: Dental abscess, left neck and jaw swelling TECHNIQUE: Imaging protocol: Computed tomography of the neck with contrast. Radiation optimization: All CT scans at this facility use at least one of these dose optimization techniques: automated exposure control; mA and/or kV adjustment per patient size (includes targeted exams where dose is matched to clinical indication); or iterative reconstruction. Contrast material: OMNI 350; Contrast volume: 80 ml; Contrast route: INTRAVENOUS (IV); COMPARISON: CT neck w con* [id number] 05/30/2018 10:49 PM RADIATION DOSE METRICS: Total DLP (mGy-cm): 158.55 FINDINGS: Salivary glands: Normal. Glands are normal in size. Pharynx: Unremarkable. No significant tonsillar enlargement. Larynx: Unremarkable. Epiglottis is normal. Thyroid: Normal. No enlarged or calcified nodules. Trachea: Visualized trachea is unremarkable. Lungs: The visualized portions of the lung apices demonstrates advanced pulmonary emphysematous changes. Lymph nodes: Unremarkable. No lymphadenopathy. Bones/joints: There is a large rim enhancing fluid collection subjacent to the left mandibular body measuring 4.2 x 4.2 cm with surrounding inflammation and adjacent skin thickening. There is periapical lucency and erosion of the mandible associated with the left inferior molar likely the cause of the above-mentioned large facial abscess. There is mild periosteal reaction involving the left mandibular body related to above-mentioned abscess. No acute bony abnormality. Multilevel degenerative changes involve the spine Soft tissues: See Bones/joints finding. CT/CT neck w con* [id number] IMPRESSION: Large abscess subjacent to the left mandibular body with surrounding myositis and cellulitis related to a dental abscess involving the left lower posterior molar. There is mild periosteal reaction involving the left mandibular body concerning for osteomyelitis.
[2024-06-03] MEDS: iohexol 350 mg/mL 500 mL Btl (per mL) IV (23:13)
[2024-06-03] MEDS: dexamethasone 10 mg/mL INJ IM (23:18)
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
[2024-06-03 23:51] LABS: Basophils % 0.2 %; Eosinophils % 0.3 %; Hematocrit 35.4 % (37-53); Lymphocytes # 1.1 10^3/uL (0.8-4.8); Lymphocytes % 8.7 %; Mean Corpuscular HGB Conc 31.1 g/dL (30-55); Mean Corpuscular Hemoglobin 33.1 pg (27-33); Mean Corpuscular Volume 106.6 fl (82-101); Mean Platelet Volume 9.8 fL (7.4-10.4); Monocytes # 1.8 10^3/uL (0.2-0.9); Monocytes % 13.6 %; Neutrophils # 9.97 10^3/uL (1.8-7.7); Neutrophils % 76.8 %; Nucleated Red Blood Cells % 0 %; Platelet Count 258 10^3/cmm (157-399); Red Blood Count 3.32 10^6/uL (3.85-5.65); Red Cell Distribution Width 16.2 % (12.1-15.1); White Blood Count 12.99 10^3/uL (3.29-11.43)
[2024-06-04] VITALS (38 sets, daily range): BP systolic 83–116; BP diastolic 48–76; PULSE 53–90; RESP 12–29; O2SAT 91–100
[2024-06-04 00:07] LABS: Erythrocyte Sedimentation Rate 21 mm/hr (0-10)
[2024-06-04 00:13] LABS: Alanine Aminotransferase 12 U/L (0-41); Albumin Level 3.4 g/dL (3.5-5.2); Alkaline Phosphatase 82 U/L (40-130); Anion Gap 13.2 (5-19); Aspartate Amino Transferase 22 U/L (0-40); Blood Urea Nitrogen 18 mg/dL (8-23); C Reactive Protein 102.6 mg/L (0.0-4.9); Calcium 8.2 mg/dL (8.5-10.5); Carbon Dioxide 27 mmol/L (22-29); Chloride 98 mmol/L (98-107); Creatinine Clr Calc Pharmacy 87.0961; Globulin 3.1 g/dL (1.3-4.6); Glomerular Filtration Rate 98.3 mL/min (90-130); Glucose 95 mg/dL (65-115); Osmolality Calculated 278 mOsm/kg (285-295); Potassium 5.2 mmol/L (3.5-5.1); Sodium 133 mmol/L (136-145); Total Bilirubin 0.4 mg/dL (0.15-1.2); Total Protein 6.5 g/dL (6.6-8.7)
[2024-06-04] MEDS: VANCOMYCIN ADD-Vantage 1,000 MG in 0.9% NaCl ADD-Vantage 250 ML 250 MG IV (05:20)
[2024-06-04] MEDS: ketorolac 30 mg/mL INJ IVP (05:42)
[2024-06-04] MEDS: ondansetron 2 mg/ML SDV 2 mL 4 MG IVP (06:23)
[2024-06-04] MEDS: morphine 4 mg/mL SDV 1 mL IVP (06:23)
[2024-06-04] MEDS: sodium chloride 0.9% 500 ML 999 ML IV (06:42)
[2024-06-04] MEDS: sodium chloride 0.9% 1,905.09 ML 1905.09 ML IV (08:15)
[2024-06-04] MEDS: morphine 4 mg/mL SDV 1 mL 2 MG IVP (08:20)
[2024-06-04 08:41] LABS: Lactic Sepsis W/Reflex 0.6 mmol/L (0.5-2.2)
[2024-06-04] MEDS: HYDROMORPHONE HCL 0.5 MG/0.5 ML INJ IVP (11:42)
== END 2024-06-04 12:33 | disposition intermediate care facility (04) ==
PROVIDERS: Physician Assistant; Emergency Provider Family Medicine; PCP Internal Medicine
DX: M27.2 Inflammatory conditions of jaws (principal); F17.210 Nicotine dependence, cigarettes, uncomplicated; I10 Essential (primary) hypertension; J44.9 Chronic obstructive pulmonary disease, unspecified
CPT/HCPCS: 36415; 70491; 80053; 83605; 85025; 85651; 86140; 87040; 96361; 96365; 96375; 96376; 99285; J1100; J1171; J1885; J2270; J2405; J3370; J7030; J7040; J7050

== ENCOUNTER 2024-08-06 21:10 | Inpatient (IN) | payer MEDICAID, SELFPAY ==
[2024-08-06 21:16] VITALS: BP 125/77; PULSE 86; RESP 18; TEMP 36.6; O2SAT 95; BMI 17.1
--- NOTE | 2024-08-06 21:29 | ECG_ITS ---
[facility] 2024-[facility]-06 Pat Name: Vasyl Reis Department: Room: Gender: Male Avian Keeper: alysha : 1960 Requested By: Robert Cooper Order Number: [id number] Reading MD: SELMA SULLIVAN Measurements Intervals [place] Rate: 85 P: 66 DE: 204 QRS: 81 QRSD: 86 T: 81 QT: 381 QTc: 454 Interpretive Statements SINUS RHYTHM Compared to ECG 05/02/2024 03:52:31 Sinus tachycardia no longer present T-wave abnormality no longer present Electronically Signed On 08-08-2024 21:01:17 CDT by SELMA SULLIVAN [email or web address] [id number]
[2024-08-06] MEDS: nicotine 21 mg Patch 1 PATCH TRANSDERMA (21:36)
--- NOTE | 2024-08-06 21:55 | XRR_ITS ---
PROCEDURE INFORMATION: Exam: XR Chest Exam date and time: 08/06/2024 10:15 PM Age: 63 years old Clinical indication: Shortness of breath; SOB TECHNIQUE: Imaging protocol: Radiologic exam of the chest. Views: 1 view. COMPARISON: CR XR chest 1V portable [id number] 05/19/2024 11:30 AM FINDINGS: Lungs: Lungs are hyperinflated. Clear parenchyma. Pleural spaces: No pleural effusion. No pneumothorax. Heart/Mediastinum: Cardiac silhouette is normal in size for technique. Bones/joints: Old healed right-sided rib fractures are unchanged from prior. Thoracic dextroscoliosis noted. Severe subjective bony demineralization. XR/XR chest 1V portable [id number] IMPRESSION: Hyperinflated but clear lungs. No other acute cardiopulmonary abnormality.
[2024-08-06] MEDS: sodium chloride 0.9% 1,000 ML 999 ML IV (22:16)
[2024-08-06 22:25] VITALS: BP 117/86; PULSE 81; O2SAT 96
[2024-08-06 22:30] LABS: Basophils % 0.9 %; Eosinophils # 0.2 10^3/uL (0.0-0.8); Eosinophils % 3.6 %; Hematocrit 42.3 % (37-53); Lymphocytes # 1.6 10^3/uL (0.8-4.8); Lymphocytes % 35.1 %; Mean Corpuscular HGB Conc 35.2 g/dL (30-55); Mean Corpuscular Hemoglobin 31.6 pg (27-33); Mean Corpuscular Volume 89.6 fl (82-101); Mean Platelet Volume 9.9 fL (7.4-10.4); Monocytes # 0.7 10^3/uL (0.2-0.9); Monocytes % 16.7 %; Neutrophils # 1.91 10^3/uL (1.8-7.7); Neutrophils % 43.2 %; Nucleated Red Blood Cells % 0 %; Platelet Count 281 10^3/cmm (157-399); Red Blood Count 4.72 10^6/uL (3.85-5.65); Red Cell Distribution Width 14.4 % (12.1-15.1); White Blood Count 4.42 10^3/uL (3.29-11.43)
[2024-08-06 22:36] LABS: INR 0.88 (0.8-1.2)
[2024-08-06 23:00] VITALS: BP 126/78; PULSE 84; O2SAT 98
--- NOTE | 2024-08-06 23:10 | PC.NURSE ---
PT AMBULATED OUT INTO HALLWAY, PT HAD RIPPED IV OUT AND PT WAS DRIPPING BLOOD FROM LEFT HAND IV SITE. PRESSURE DRESSING APPLIED. PT ASSISTED BACK TO BED.
--- NOTE | 2024-08-06 23:16 | PC.NURSE ---
PT HAS CONTINUED TO REMOVE VS EQUIPMENT.
[2024-08-06 23:25] LABS: Alanine Aminotransferase 16 U/L (0-41); Albumin Level 3.8 g/dL (3.5-5.2); Alcohol Level 239 mg/dL (0-10); Alkaline Phosphatase 63 U/L (40-130); Anion Gap 15.5 (5-19); Aspartate Amino Transferase 29 U/L (0-40); Blood Urea Nitrogen 7 mg/dL (8-23); Calcium 7.8 mg/dL (8.5-10.5); Carbon Dioxide 23 mmol/L (22-29); Chloride 85 mmol/L (98-107); Creatine Phosphokinase 69 U/L (39-308); Creatinine Clr Calc Pharmacy 129.3998; Globulin 2.5 g/dL (1.3-4.6); Glucose 93 mg/dL (65-115); Lipase 36 U/L (13-60); Magnesium 1.4 mg/dL (1.7-2.3); Osmolality Calculated 246 mOsm/kg (285-295); Potassium 4.5 mmol/L (3.5-5.1); Total Bilirubin 0.4 mg/dL (0.15-1.2); Total Protein 6.3 g/dL (6.6-8.7)
[2024-08-06 23:27] LABS: Sodium 119 mmol/L (136-145)
[2024-08-07] VITALS (136 sets, daily range): BP systolic 91–144; BP diastolic 53–90; PULSE 77–116; RESP 12–31; TEMP 36.4–37; O2SAT 86–100; BMI 15.7
[2024-08-07] MEDS: sodium chloride 1 gm Tablet PO
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
[2024-08-07 02:24] LABS: Alcohol Level 159 mg/dL (0-10); Blood Urea Nitrogen 8 mg/dL (8-23); Calcium 8.1 mg/dL (8.5-10.5); Carbon Dioxide 20 mmol/L (22-29); Chloride 85 mmol/L (98-107); Creatinine Clr Calc Pharmacy 107.8332; Glucose 99 mg/dL (65-115); Osmolality Calculated 242 mOsm/kg (285-295)
[2024-08-07 02:29] LABS: Anion Gap 16.4 (5-19); Potassium 4.4 mmol/L (3.5-5.1); Sodium 117 mmol/L (136-145)
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
[2024-08-07] MEDS: magnesium sulfate premix 2 GM/50 ML PIGGYBACK IV (04:12)
[2024-08-07] MEDS: sodium chloride 3% 500 ML 45 ML IV (04:25)
[2024-08-07] MEDS: acetaminophen 325 mg Tablet 650 MG PO ×2 (04:33→08:31)
[2024-08-07 06:04] LABS: Blood Urea Nitrogen 8 mg/dL (8-23); Calcium 8.4 mg/dL (8.5-10.5); Carbon Dioxide 20 mmol/L (22-29); Chloride 90 mmol/L (98-107); Creatinine Clr Calc Pharmacy 119.3471; Glucose 97 mg/dL (65-115); Osmolality Calculated 254 mOsm/kg (285-295); Sodium 123 mmol/L (136-145)
[2024-08-07 06:05] LABS: Anion Gap 17.4 (5-19); Potassium 4.4 mmol/L (3.5-5.1)
[2024-08-07] MEDS: multivitamin therapeutic Tablet 1 TAB PO (08:32)
[2024-08-07] MEDS: duloxetine 60 mg Capsule PO (08:32)
[2024-08-07] MEDS: thiamine 100 mg Tablet PO (08:32)
[2024-08-07] MEDS: folic acid 1 mg Tablet PO (08:32)
[2024-08-07 09:14] LABS: Sodium 123 mmol/L (136-145)
--- NOTE | 2024-08-07 09:26 | CTR_ITS ---
PROCEDURE INFORMATION: Exam: CT Chest Without Contrast; Diagnostic Exam date and time: 08/07/2024 10:01 AM Age: 63 years old Clinical indication: Other: Weight loss; Dyspnea TECHNIQUE: Imaging protocol: Diagnostic computed tomography of the chest without contrast. Radiation optimization: All CT scans at this facility use at least one of these dose optimization techniques: automated exposure control; mA and/or kV adjustment per patient size (includes targeted exams where dose is matched to clinical indication); or iterative reconstruction. COMPARISON: CT angio chest PE protcl [id number] 04/18/2022 5:59 AM RADIATION DOSE METRICS: Total DLP (mGy-cm): 442.38 FINDINGS: Lungs: There is diffuse emphysema. There is minimal linear atelectasis or scarring at the lung bases. There are a few scattered calcified granulomas. No noncalcified pulmonary nodules are appreciated. There is bronchial wall thickening as well as a few opacified lower lobe bronchi bilaterally possibly related to mucous plugging or aspiration. Pleural spaces: There is trace pleural fluid on the right. Heart: Unremarkable. No cardiomegaly. No pericardial effusion. Lymph nodes: There are a few small mediastinal and hilar lymph nodes similar to that seen on prior exam. Vasculature: The thoracic aorta is normal in caliber. There is calcified plaque involving the aorta and coronary vessels. Bones/joints: Unremarkable. No acute fracture. Soft tissues: Unremarkable. COMMENTS: The presence of pulmonary emphysema on CT is an independent risk factor for lung cancer. In the absence of a history or active diagnosis of lung cancer, it is recommended that this patient with emphysema be evaluated for enrollment in a low dose CT lung cancer screening program. PROCEDURE INFORMATION: Exam: CT Abdomen And Pelvis Without Contrast Exam date and time: 08/07/2024 10:01 AM Age: 63 years old Clinical indication: Other: Weight loss; Dyspnea TECHNIQUE: Imaging protocol: Computed tomography of the abdomen and pelvis without contrast. Radiation optimization: All CT scans at this facility use at least one of these dose optimization techniques: automated exposure control; mA and/or kV adjustment per patient size (includes targeted exams where dose is matched to clinical indication); or iterative reconstruction. COMPARISON: CT angio chest PE protcl [id number] 04/18/2022 5:59 AM RADIATION DOSE METRICS: Total DLP (mGy-cm): 442.38 FINDINGS: Diaphragm: There may be a small hiatal hernia. Liver: Normal. No mass. Gallbladder and biliary ducts: There are gallstones within the gallbladder. No pericholecystic inflammatory change is noted. Pancreas: Normal. No ductal dilation. Spleen: Normal. No splenomegaly. Adrenal glands: Normal. No mass. Kidneys and ureters: Normal. No hydronephrosis. Stomach and bowel: Unremarkable. No obstruction. No mucosal thickening. Appendix: No evidence of appendicitis. Intraperitoneal space: Unremarkable. No free air. No significant fluid collection. Vasculature: The aorta is normal in caliber. There is calcified plaque involving the aorta and its branch vessels. Lymph nodes: Unremarkable. No enlarged lymph nodes. Urinary bladder: Unremarkable as visualized. Reproductive: Unremarkable as visualized. Bones/joints: Unremarkable. No acute fracture. Soft tissues: There is a tiny fat filled periumbilical hernia. CT/[place] [id number] IMPRESSION: 1. Emphysema. 2. Bronchial wall thickening as well as a few opacified lower lobe bronchi bilaterally. Findings could be related to mucous plugging or aspiration. No consolidation is identified. IMPRESSION: 1. Cholelithiasis.
--- NOTE | 2024-08-07 09:32 | USCV_ITS ---
Vasyl Reis Age: 63 Gender: M : 1960 Exam Date: 08/07/2024 14:38 Ordering Phys: Eze Croft MD Technologist: Cruzito George Exam Location: [facility] Indication: sob BP: 115 / 75 HR: Rhythm: Sinus Technical Quality: Suboptimal MEASUREMENTS (Male / Female) Normal Values 2D ECHO LV Diastolic Diameter PLAX 4.0 cm 4.2 - 5.9 / 3.9 - 5.3 cm IVS Diastolic Thickness 1.3 cm 0.6 - 1.0 / 0.6 - 0.9 cm IVS Systolic Thickness 1.1 cm LVPW Diastolic Thickness 1.6 cm 0.6 - 1.0 / 0.6 - 0.9 cm LVPW Systolic Thickness 1.5 cm LVOT Diameter 2.0 cm LV Ejection Fraction 2D Teich 59.2 % LA Diameter 3.1 cm Aorta at Sinotubular Diameter 2.6 cm IVC Diameter 1.5 cm M-MODE LA Ao Ratio MM 1.0 AV Cusp Separation MM 1.3 cm DOPPLER PV Peak Velocity 101.0 cm/s RV Ejection Time 0.3 s FINDINGS Left Ventricle Technically limited quality echocardiogram because of poor ultrasonic windows. LV systolic function is normal with EF of 55-60%. No regional wall motion abnormalities. Right Ventricle Grossly normal Right Atrium Not well visualized Left Atrium Not well visualized Mitral Valve Grossly normal Aortic Valve Grossly normal Tricuspid Valve Insufficient TR jet to calculate RVSP Pulmonic Valve Not well visualized Pericardium Normal Aorta Normal in size IVC Appears to be normal CONCLUSIONS Technically limited quality echocardiogram because of poor ultrasonic windows. LV systolic function is normal with EF of 55-60%. Hermann Nava MD (Electronically Signed) Final Date: 09 August 2024 20:27 S
[2024-08-07] MEDS: predniSONE 20 mg Tablet 40 MG PO (09:47)
[2024-08-07] MEDS: gabapentin 300 mg Capsule PO ×3 (09:47→20:09)
[2024-08-07] MEDS: cefTRIAXone 1,000 mg SDV 1000 MG IVP (09:47)
[2024-08-07] MEDS: metoprolol tartrate 25 mg Tablet PO ×2 (09:47→20:08)
[2024-08-07] MEDS: ipratropium-albuterol 3 mL Neb INHALATION ×2 (09:50→20:23)
[2024-08-07] MEDS: LORazepam 2 mg Tablet PO ×2 (10:27→20:09)
[2024-08-07] MEDS: AZITHROMYCIN ADD-Vantage 500 MG in 0.9% NaCl ADD-Vantage 250 ML 250 MG IV (10:27)
[2024-08-07 10:45] LABS: Erythrocyte Sedimentation Rate < 1 mm/hr (0-10)
[2024-08-07 11:15] LABS: HIV 1 & 2 Antibody Non-Reactive (Non-Reactiv); HIV 1 & 2 Antigen Non-Reactive (Non-Reactiv)
[2024-08-07 11:20] LABS: Hepatitis A Antibody IgM Non-Reactive (Nonreactive); Hepatitis B Core IgM Non-Reactive (Nonreactive); Hepatitis B Surface Antigen Non-Reactive (Nonreactive); Hepatitis C Virus Antibody Non-Reactive (Nonreactive)
[2024-08-07 11:21] LABS: NT Pro B Type Natriuretic Pept 186 pg/mL (0-125); Procalcitonin 0.04 ng/mL (0-0.5); Thyroid Stimulating Hormone 2.53 uIU/mL (0.27-4.20); Vitamin B12 377 pg/mL (232-1245)
[2024-08-07 11:26] LABS: Folate Level > 20.0 ng/mL (4.5-32.2)
[2024-08-07 11:32] LABS: Anion Gap 17.1 (5-19); Blood Urea Nitrogen 12 mg/dL (8-23); Carbon Dioxide 24 mmol/L (22-29); Chloride 89 mmol/L (98-107); Creatinine Clr Calc Pharmacy 85.2479; Glomerular Filtration Rate 114.6 mL/min (90-130); Glucose 78 mg/dL (65-115); Osmolality Calculated 259 mOsm/kg (285-295); Potassium 5.1 mmol/L (3.5-5.1); Sodium 125 mmol/L (136-145)
--- NOTE | 2024-08-07 11:39 | PC.SLP ---
RN requested to let patient sleep and to evaluate tomorrow on 08/08/24
[2024-08-07 11:42] LABS: Rapid Plasma Reagin Syphilis Nonreactive (Nonreactive)
[2024-08-07 13:24] LABS: Sodium 122 mmol/L (136-145)
--- NOTE | 2024-08-07 14:42 | P.PN_ITS ---
Subjective 2 Subjective: - Patient was seen this morning - He is alert oriented x 3, following al l commands - He does report about a 20 pound weight loss over the last year - Does report shortness of breath with e xertion that has been worsening recently - Does report a productive cough, wheezi ng, yellow/green sputum - Does report fatigue, malaise - Denies any lightheadedness, dizziness, no nausea, no vomiting Vitals/I&O/Wt Last Vital Signs Temp 98.6 F 08/07/24 13:10 Pulse 102 H 08/07/24 14:09 Resp 16 08/07/24 14:09 BP 115/75 08/07/24 13:10 Pulse Ox 95 08/07/24 14:09 O2 Del Method Nasal Cannula 08/07/24 10:40 O2 Flow Rate 2 08/07/24 14:09 08/06/24 08/07/24 08/07/24 22:59 06:59 14:59 Intake Total 0 / 0 1050 / 1050 831 / 831 Output Total 900 / 900 Balance 0 / 0 150 / 150 831 / 831 Weight last 48 hrs Weight 54.386 kg Weight 54.386 kg Weight 54.386 kg Weight 58.967 kg Physical Exam 2 Const: COMMON NORMALS: no acute distress and patient oriented x3 Resp: COMMON NORMALS: normal respiratory effort, No retractions and No use of accessory muscles AUSCULTATION: crackles and wheezes Cardio: COMMON NORMALS: regular rate, regular rhythm, S1 normal heart sound present and S2 normal heart sound present RATE: regular rate RHYTHM: r egular rhythm HEART SOUNDS: S1 normal heart sound present and S2 normal heart sound present GI: COMMON NORMALS: Normal to inspection, nondistended, normoactive bowel sounds present and non-tender Extremity: COMMON NORMALS: no clubbing, cyanosis or edema and no pedal edema Neuro: COMMON NORMALS: patient oriented x3, CN's II-XII intact bilaterally and moves all extremities Psych: COMMON NORMALS: mental status grossly normal Data 08/06/24 22:15 08/07/24 12:59 A&P Assessment and plan (1) Hyponatremia: (2) Alcohol intoxication: (3) Tobacco use disorder: (4) COPD (chronic obstructive pulmonary disease): (5) Toxic metabolic encephalopathy: (6) Hypomagnesemia: (7) Alcohol use disorder, severe, dependence: (8) Acute alcoholic intoxication: Qualifiers: Complication of substance-induced condition: with unspecified complication Qualified Code(s): F10.929 - Alcohol use, unspecified with intoxication, unspecified Plan Severe acute on chronic hypovolemic hyponatremia secondary to Beer Potomania -Possible component of duloxetine? - Status post IV fluid bolus consult-ED - Status post hypertonic saline serum sodium improved to 123, correction about 6 mEq, will hold off on any further doses of hypertonic saline - Trend sodium level q4h - Would benefit from alcohol cessation - Acute hypoxic respiratory failure - Secondary COPD, pneumonia - History of smoking Plan - DuoNeb - Budesonide - Prednisone 40 mg daily -Rocephin, Zithromycin - CT chest Hypomagnesia - Replace magnesium Acute on chronic alcohol intoxication Suspected early alcohol withdrawal Alcohol use disorder with abuse, severe - Thiamine, folic acid, vitamin - [facility] protocol - CT abdomen Tobacco use disorder - NRT ordered History of depression History of panic attacks Does complain of neuropathy, check B12, folic acid, RPR, TSH, DVT ppx: Low risk Code: Full code Plan for today monitor serum sodium every 4 hours, CT chest abdomen pelvis, Rocephin, Zithromycin, p.o. steroids, monitor mentation, acute hep panel, HIV PDMP PDMP Reviewed: Last Reviewed 08/07/24 14:48 by Eze Croft MD Attestations 2 Medical Necessity Statement*: Patient requires hospitalization, for hyponatremia, alcohol withdrawal, acute respiratory failure Diagnoses Hyponatremia E87.1 Alcohol intoxication F10.929 Tobacco use disorder F17.200 Chronic obstructive pulmonary disease, unspecified COPD type J44.9 Toxic metabolic encephalopathy G92.8 Hypomagnesemia E83.42 Alcohol use disorder, severe, dependence F10.20 Acute alcoholic intoxication F10.929 Complication of substance-induced condition: with unspecified complication
[2024-08-07 14:49] LABS: Anion Gap 17.1 (5-19); Blood Urea Nitrogen 15 mg/dL (8-23); Calcium 8.7 mg/dL (8.5-10.5); Carbon Dioxide 22 mmol/L (22-29); Chloride 89 mmol/L (98-107); Creatinine Clr Calc Pharmacy 119.3471; Glucose 165 mg/dL (65-115); Osmolality Calculated 261 mOsm/kg (285-295); Potassium 5.1 mmol/L (3.5-5.1); Sodium 123 mmol/L (136-145)
[2024-08-07 17:58] LABS: Sodium 126 mmol/L (136-145)
[2024-08-07] MEDS: morphine 4 mg/mL SDV 1 mL 2 MG IVP (20:09)
[2024-08-07] MEDS: budesonide 0.5 mg/2 mL Neb INHALATION (20:23)
[2024-08-07 21:23] LABS: Sodium 129 mmol/L (136-145)
[2024-08-08] VITALS (35 sets, daily range): BP systolic 125–153; BP diastolic 81–101; PULSE 70–94; RESP 10–26; TEMP 36.5–36.9; O2SAT 92–99
[2024-08-08 01:19] LABS: Sodium 129 mmol/L (136-145)
[2024-08-08 05:07] LABS: Basophils % 0.4 %; Eosinophils % 0.5 %; Hematocrit 40.4 % (37-53); Lymphocytes # 1.1 10^3/uL (0.8-4.8); Lymphocytes % 19.3 %; Mean Corpuscular HGB Conc 34.2 g/dL (30-55); Mean Corpuscular Hemoglobin 31.2 pg (27-33); Mean Corpuscular Volume 91.4 fl (82-101); Mean Platelet Volume 9.6 fL (7.4-10.4); Monocytes # 0.9 10^3/uL (0.2-0.9); Neutrophils # 3.44 10^3/uL (1.8-7.7); Neutrophils % 62.8 %; Nucleated Red Blood Cells % 0 %; Platelet Count 245 10^3/cmm (157-399); Red Blood Count 4.42 10^6/uL (3.85-5.65); Red Cell Distribution Width 14.5 % (12.1-15.1); White Blood Count 5.48 10^3/uL (3.29-11.43)
[2024-08-08 05:27] LABS: Alanine Aminotransferase 16 U/L (0-41); Albumin Level 3.9 g/dL (3.5-5.2); Alkaline Phosphatase 79 U/L (40-130); Anion Gap 15.3 (5-19); Aspartate Amino Transferase 26 U/L (0-40); Blood Urea Nitrogen 12 mg/dL (8-23); Calcium 8.6 mg/dL (8.5-10.5); Carbon Dioxide 26 mmol/L (22-29); Chloride 93 mmol/L (98-107); Creatinine Clr Calc Pharmacy 149.1838; Globulin 2.9 g/dL (1.3-4.6); Glomerular Filtration Rate 218.7 mL/min (90-130); Glucose 87 mg/dL (65-115); Magnesium 1.6 mg/dL (1.7-2.3); Osmolality Calculated 269 mOsm/kg (285-295); Potassium 4.3 mmol/L (3.5-5.1); Sodium 130 mmol/L (136-145); Total Bilirubin 0.6 mg/dL (0.15-1.2); Total Protein 6.8 g/dL (6.6-8.7)
[2024-08-08] MEDS: thiamine 100 mg Tablet PO (08:08)
[2024-08-08] MEDS: predniSONE 20 mg Tablet 40 MG PO (08:08)
[2024-08-08] MEDS: multivitamin therapeutic Tablet 1 TAB PO (08:09)
[2024-08-08] MEDS: gabapentin 300 mg Capsule PO ×3 (08:09→21:12)
[2024-08-08] MEDS: metoprolol tartrate 25 mg Tablet PO ×2 (08:09→21:12)
[2024-08-08] MEDS: duloxetine 60 mg Capsule PO (08:09)
[2024-08-08] MEDS: folic acid 1 mg Tablet PO (08:09)
[2024-08-08] MEDS: morphine 4 mg/mL SDV 1 mL 2 MG IVP ×3 (09:03→21:42)
[2024-08-08] MEDS: AZITHROMYCIN ADD-Vantage 500 MG in 0.9% NaCl ADD-Vantage 250 ML 250 MG IV (09:04)
[2024-08-08] MEDS: cefTRIAXone 1,000 mg SDV 1000 MG IVP (09:05)
[2024-08-08] MEDS: ipratropium-albuterol 3 mL Neb INHALATION ×2 (09:08→19:56)
[2024-08-08] MEDS: budesonide 0.5 mg/2 mL Neb INHALATION ×2 (09:08→19:57)
[2024-08-08] MEDS: acetaminophen 325 mg Tablet 650 MG PO (10:54)
[2024-08-08] MEDS: calcium carbonate 500 mg Chew Tablet 1000 MG PO (12:55)
[2024-08-08] MEDS: LORazepam 2 mg Tablet PO (13:32)
--- NOTE | 2024-08-08 14:49 | P.PN_ITS ---
Vitals/I&O/Wt Last Vital Signs Temp 97.7 F 08/08/24 07:31 Pulse 70 08/08/24 14:00 Resp 18 08/08/24 13:20 BP 135/91 08/08/24 13:20 Pulse Ox 95 08/08/24 13:20 O2 Del Method Nasal Cannula 08/08/24 13:20 O2 Flow Rate 2 08/08/24 13:20 08/07/24 08/08/24 08/08/24 22:59 06:59 14:59 Intake Total 280 / 1111 650 / 650 Output Total 1200 / 1550 1900 / 3450 Balance -920 / -439 -1900 / -2339 650 / 650 Weight last 48 hrs Weight 53.887 kg Weight 53.887 kg Weight 54.386 kg Weight 54.386 kg Weight 54.386 kg Weight 58.967 kg Physical Exam 2 Const: COMMON NORMALS: no acute distress and patient oriented x3 Resp: COMMON NORMALS: normal respiratory effort, No retractions, No use of accessory muscles and clear to auscultation bilaterally AUSCULTATION: clear to auscultation bilaterally Cardio: COMMON NORMALS: regular rate, regular rhythm, S1 normal heart sound present and S2 normal heart sound present RATE: regular rate RHYTHM: r egular rhythm HEART SOUNDS: S1 normal heart sound present and S2 normal heart sound present GI: COMMON NORMALS: Normal to inspection, nondistended, normoactive bowel sounds present and non-tender Extremity: COMMON NORMALS: no pedal edema Neuro: COMMON NORMALS: patient oriented x3 Psych: COMMON NORMALS: mental status grossly normal Data 08/08/24 04:54 08/08/24 04:54 A&P Assessment and plan (1) Hyponatremia: (2) Alcohol intoxication: (3) Tobacco use disorder: (4) COPD (chronic obstructive pulmonary disease): (5) Toxic metabolic encephalopathy: (6) Hypomagnesemia: (7) Alcohol use disorder, severe, dependence: (8) Acute alcoholic intoxication: Qualifiers: Complication of substance-induced condition: with unspecified complication Qualified Code(s): F10.929 - Alcohol use, unspecified with intoxication, unspecified Plan Severe acute on chronic hypovolemic hyponatremia secondary to Beer Potomania, 130 - duloxetine - Status post IV fluid bolus consult - Status post hypertonic saline serum sodium improved to 123, correction about 6 mEq, will hold off on any further doses of hypertonic saline - Would benefit from alcohol cessation - Acute hypoxic respiratory failure - Secondary COPD, pneumonia - History of smoking Plan - DuoNeb - Budesonide - Prednisone 40 mg daily -Rocephin, Zithromycin - CT chest CT/[place] [id number] IMPRESSION: 1. Emphysema. 2. Bronchial wall thickening as well as a few opacified lower lobe bronchi bilaterally. Findings could be related to mucous plugging or aspiration. No consolidation is identified. Hypomagnesia - Replace magnesium Acute on chronic alcohol intoxication Suspected early alcohol withdrawal Alcohol use disorder with abuse, severe - Thiamine, folic acid, vitamin - [facility] protocol - CT abdomen IMPRESSION: 1. Cholelithiasis. Tobacco use disorder - NRT ordered History of depression History of panic attacks Does complain of neuropathy, check B12, folic acid, RPR, TSH,WNL DVT ppx: Low risk Code: Full code Plan for today will move to medical floors, pt/ot PDMP PDMP Reviewed: Last Reviewed 08/07/24 14:48 by Eze Croft MD Attestations 2 Medical Necessity Statement*: patient requires hospitalization for acute hypoxic respiratory failure, copd, hyponatremia, alcohol intoxication Diagnoses Hyponatremia E87.1 Alcohol intoxication F10.929 Tobacco use disorder F17.200 Chronic obstructive pulmonary disease, unspecified COPD type J44.9 Toxic metabolic encephalopathy G92.8 Hypomagnesemia E83.42 Alcohol use disorder, severe, dependence F10.20 Acute alcoholic intoxication F10.929 Complication of substance-induced condition: with unspecified complication
[2024-08-08] MEDS: nicotine 14 mg Patch 1 PATCH TRANSDERMA (14:58)
[2024-08-08] MEDS: magnesium oxide 400 mg tablet PO (17:30)
[2024-08-08] MEDS: trazodone 50 mg Tablet PO (21:12)
[2024-08-09] VITALS (11 sets, daily range): BP systolic 112–135; BP diastolic 78–86; PULSE 76–98; RESP 16–18; TEMP 36.8; O2SAT 88–95
[2024-08-09] MEDS: morphine 4 mg/mL SDV 1 mL 2 MG IVP (05:31)
[2024-08-09 06:00] LABS: Basophils % 0.3 %; Eosinophils % 0.4 %; Hematocrit 41.2 % (37-53); Lymphocytes # 1.4 10^3/uL (0.8-4.8); Lymphocytes % 14.8 %; Mean Corpuscular HGB Conc 33.3 g/dL (30-55); Mean Corpuscular Hemoglobin 31.8 pg (27-33); Mean Corpuscular Volume 95.6 fl (82-101); Mean Platelet Volume 10.3 fL (7.4-10.4); Monocytes # 0.9 10^3/uL (0.2-0.9); Monocytes % 9.5 %; Neutrophils % 74.6 %; Nucleated Red Blood Cells % 0 %; Platelet Count 247 10^3/cmm (157-399); Red Blood Count 4.31 10^6/uL (3.85-5.65); Red Cell Distribution Width 14.9 % (12.1-15.1); White Blood Count 9.52 10^3/uL (3.29-11.43)
[2024-08-09 06:22] LABS: Alanine Aminotransferase 15 U/L (0-41); Albumin Level 3.7 g/dL (3.5-5.2); Alkaline Phosphatase 74 U/L (40-130); Anion Gap 12.3 (5-19); Aspartate Amino Transferase 23 U/L (0-40); Blood Urea Nitrogen 8 mg/dL (8-23); Calcium 9.1 mg/dL (8.5-10.5); Carbon Dioxide 28 mmol/L (22-29); Chloride 91 mmol/L (98-107); Globulin 3.1 g/dL (1.3-4.6); Glucose 89 mg/dL (65-115); Magnesium 1.6 mg/dL (1.7-2.3); Osmolality Calculated 262 mOsm/kg (285-295); Phosphorus 3.6 mg/dL (2.5-4.5); Potassium 4.3 mmol/L (3.5-5.1); Sodium 127 mmol/L (136-145); Total Bilirubin 0.6 mg/dL (0.15-1.2); Total Protein 6.8 g/dL (6.6-8.7)
[2024-08-09] MEDS: budesonide 0.5 mg/2 mL Neb INHALATION (08:08)
[2024-08-09] MEDS: ipratropium-albuterol 3 mL Neb INHALATION (08:08)
[2024-08-09] MEDS: nicotine 14 mg Patch 1 PATCH TRANSDERMA (08:43)
[2024-08-09] MEDS: AZITHROMYCIN ADD-Vantage 500 MG in 0.9% NaCl ADD-Vantage 250 ML 200 MG IV (08:43)
[2024-08-09] MEDS: gabapentin 300 mg Capsule PO ×2 (08:44→14:30)
[2024-08-09] MEDS: multivitamin therapeutic Tablet 1 TAB PO (08:44)
[2024-08-09] MEDS: metoprolol tartrate 25 mg Tablet PO (08:44)
[2024-08-09] MEDS: cefTRIAXone 1,000 mg SDV 1000 MG IVP (08:44)
[2024-08-09] MEDS: thiamine 100 mg Tablet PO (08:44)
[2024-08-09] MEDS: magnesium oxide 400 mg tablet PO (08:44)
[2024-08-09] MEDS: predniSONE 20 mg Tablet 40 MG PO (08:44)
[2024-08-09] MEDS: duloxetine 60 mg Capsule PO (08:44)
[2024-08-09] MEDS: sodium chloride 1 gm Tablet PO (08:44)
[2024-08-09] MEDS: folic acid 1 mg Tablet PO (08:44)
--- NOTE | 2024-08-09 08:56 | PC.NURSE ---
Sats 88% on room air. Pt placed on 2LNC. States he wears oxygen at home prn.
--- NOTE | 2024-08-09 10:08 | PC.CHAP ---
Pastoral Care Encounter/Spiritual Assessment Type of Contact [] Declined check airman visit [] Patient/Family/Request visit [] Outpatient visit [] Follow-up visit [] Physician referral [] Code/Alert [x] Routine visit [] Staff referral [] Actively dying [] Patient sleeping [] Family support [] [] Out of room [] Palliative care [] [] Receiving care in room [] Pre-surgical visit [] Trauma [] Long length of stay [] ICU visit [] Other: Relational/Emotional Strength [x] Patient feels connected with others/family/visitors/staff [] Distress [] Loneliness/isolation [] Abandonment Spirituality of Patient [x] Person of Keisha [] Attends Sikh of their Keisha [x] Believes in Prayer [] Reads Bible or Roman Catholic materials [] There are Spiritual issues to be addressed Deckhand Maintenance Interventions [x] Prayer [x] Active listening [] Non-anxious presence [x] Spiritual/emotional support [] Crisis/trauma care [] Spiritual counseling [] Bereavement support [] Provided bereavement packet [] Provided Bible/devotional materials [] Provided toy/stuffed animal, coloring book to patient or family member [] Provided Communion [] Anointing/Jenera [] Salvation [x] Completed spiritual assessment [] Other: Impact on Illness or Injury [] Angry [] Fearful [] Anxious [] Often cries [] Exhaustion [] Unable to work [] Unable to attend hindu [] Unable to walk/stand [] Unable to read [] Unable to drive [] Unable to eat/drink [] Unable to sleep [] Unable to be with family [] Patient intubated [] Other: Summary Time spent with patient 5 min
--- NOTE | 2024-08-09 11:22 | CT_ITS ---
WS: [id number] CT LUMBAR SPINE, noncontrast. HISTORY: Back pain, neuropathy TECHNIQUE: Contiguous 2.0 mm axial imaging are performed. Sagittal and coronal reformats are submitted and reviewed. All CT scans at [facility] use at least one of these dose optimization techniques: automated exposure control; mA and/or kV adjustment per patient size (includes targeted exams where dose is matched to clinical indication); or iterative reconstruction. IV contrast: None DLP: 333.57 mGy.cm COMPARISON: 08/07/2024, 11/14/2021 Mild increase in lumbar lordosis. 6 nonrib-bearing vertebral bodies. No fractures. Mild hypertrophic osteophytes in the lumbar vertebral bodies. Pedicles and transverse processes are intact. Small amount of air in the SI joints. No destructive sacral lesions. No significant foraminal stenosis. Mild disc bulging at L4-5 and L5-S1. Mild encroachment upon the subarticular recesses. Mild disc contact on the traversing S1 nerve roots. Very mild foraminal and subarticular recess stenosis at L5-S1. S1 is lumbarized. RIGHT pseudoarticulation L5-S1. Dense calcification in the abdominal aorta and the iliac arteries. CT/CT lumbar spine wo con* [id number] IMPRESSION: 1. 6 nonrib-bearing lumbar vertebral bodies with S1 being lumbarized. 2. Disc bulging at L5-S1 with contact on the S1 nerve roots. 3. No fractures.
[2024-08-09 13:14] LABS: Anion Gap 15.2 (5-19); Blood Urea Nitrogen 11 mg/dL (8-23); Calcium 8.9 mg/dL (8.5-10.5); Carbon Dioxide 26 mmol/L (22-29); Chloride 92 mmol/L (98-107); Glucose 172 mg/dL (65-115); Osmolality Calculated 271 mOsm/kg (285-295); Potassium 4.2 mmol/L (3.5-5.1); Sodium 129 mmol/L (136-145)
--- NOTE | 2024-08-09 14:21 | PM.DCS ---
Discharge Providers Date of Admission: 08/08/24 14:53 Date of Discharge: August 09, 2024 Attending Provider at Admission: Kenneth Garcia MD Attending Provider at Discharge: Eze Croft MD Primary Care Provider: Laron Booker MD Diagnoses at Discharge Discharge Diagnosis (1) Hyponatremia: Status: Acute (2) Alcohol intoxication: Status: Acute (3) Tobacco use disorder: Status: Acute (4) COPD (chronic obstructive pulmonary disease): Status: Acute (5) Toxic metabolic encephalopathy: Status: Acute (6) Hypomagnesemia: Status: Acute (7) Alcohol use disorder, severe, dependence: Status: Acute (8) Acute alcoholic intoxication: Status: Acute Qualifiers: Complication of substance-induced condition: with unspecified complication Qualified Code(s): F10.929 - Alcohol use, unspecified with intoxication, unspecified Reason for Visit Reason for Visit: ANXIETY Hospital Course Hospital Course This is a 63-year-old male with a past medical history of alcohol abuse, withdrawals, COPD, tobacco abuse, hypertension who presents to [facility] for alcohol intoxication and generalized weakness Patient was admitted to [facility] for acute alcohol intoxication, monitored in ICU, overall clinically improved, will be discharged home. I strongly recommend for patient to go to alcohol rehab however he declines, I have discussed with patient about alcohol cessation counseling, discussed morbidity and mortality associated, he voiced, all questions answered, For his deconditioning, lower extremity weakness, I strongly recommended for patient to go to inpatient rehab, or shelter facility, however patient has declined For acute on chronic hypovolemic hyponatremia with beer Potomania, patient was monitored in the ICU, managed on hypertonic saline, overall clinically improved, serum sodium at discharge 129. Patient denies headache, no blurry vision, no nausea, no vomiting For acute on chronic hypoxic respiratory failure secondary COPD, pneumonia, received inpatient IV antibiotics, IV steroids, overall clinically improved, discharged on p.o. antibiotics, Advair, Spiriva, prednisone burst, advised to quit smoking, follow-up with primary care On discharge, patient has deconditioning, alcoholism, protein calorie malnutrition, BMI 15.6. I have strongly recommended for him to go to shelter facility or rehab however patient declines, discussed morbidity and mortality, discussed risk of readmission, he voiced understanding, all question answered, declines going to alcohol rehab, declines going to rehab facility or shelter facility. Physical Exam Const: COMMON NORMALS: no acute distress and patient oriented x3 Resp: COMMON NORMALS: normal respiratory effort, No retractions, No use of accessory muscles and clear to auscultation bilaterally AUSCULTATION: clear to auscultation bilaterally Cardio: COMMON NORMALS: regular rate, regular rhythm, S1 normal heart sound present and S2 normal heart sound present RATE: regular rate RHYTHM: regular rhythm HEART SOUNDS: S1 normal heart sound present and S2 normal heart sound present GI: COMMON NORMALS: Normal to inspection, nondistended, normoactive bowel sounds present and non-tender Extremity: COMMON NORMALS: no clubbing, cyanosis or edema and no pedal edema Neuro: COMMON NORMALS: patient oriented x3 Psych: COMMON NORMALS: mental status grossly normal Discharge Data Studies Completed and Pending Completed Studies During Hospitalization Category Date Time Status CT chest abdomen pelvis [[place] [id number] Cat Scan 08/07/24 09:26 Completed ] Routine CT lumbar spine wo con* [id number] Routine Cat Scan 08/09/24 11:22 Completed XR chest 1V portable [id number] Stat Exams 08/06/24 21:55 Completed Pending at discharge Category Date Time Status Complete Blood Count w/Auto AM LABS Lab 08/10/24 04:00 Ordered Complete Blood Count w/Auto AM LABS Lab 08/11/24 04:00 Ordered Comprehensive Metabolic Panel AM LABS Lab 08/10/24 04:00 Ordered Comprehensive Metabolic Panel AM LABS Lab 08/11/24 04:00 Ordered Magnesium AM LABS Lab 08/10/24 04:00 Ordered Magnesium AM LABS Lab 08/11/24 04:00 Ordered Phosphorus AM LABS Lab 08/10/24 04:00 Ordered Phosphorus AM LABS Lab 08/11/24 04:00 Ordered Sputum Culture and Gram Stain Stat Lab 08/07/24 09:32 Uncollected CV. echo complete* [id number] Routine Ultrasound 08/07/24 09:32 Taken Radiology Impressions Chest X-Ray 08/06/24 21:55 IMPRESSION: Hyperinflated but clear lungs. No other acute cardiopulmonary abnormality. Chest/Abdomen/Pelvis CT 08/07/24 09:26 IMPRESSION: 1. Emphysema. 2. Bronchial wall thickening as well as a few opacified lower lobe bronchi bilaterally. Findings could be related to mucous plugging or aspiration. No consolidation is identified. IMPRESSION: 1. Cholelithiasis. Lumbar Spine CT 08/09/24 11:22 IMPRESSION: 1. 6 nonrib-bearing lumbar vertebral bodies with S1 being lumbarized. 2. Disc bulging at L5-S1 with contact on the S1 nerve roots. 3. No fractures. Laboratory Results WBC 9.52 10^3/uL (3.29-11.43) 08/09/24 05:07 RBC 4.31 10^6/uL (3.85-5.65) 08/09/24 05:07 Hgb 13.70 g/dL (11.27-16.99) 08/09/24 05:07 Hct 41.2 % (37-53) 08/09/24 05:07 MCV 95.6 fl (82-101) 08/09/24 05:07 MCH 31.8 pg (27-33) 08/09/24 05:07 MCHC 33.3 g/dL (30-55) 08/09/24 05:07 RDW 14.9 % (12.1-15.1) 08/09/24 05:07 Plt Count 247 10^3/cmm (157-399) 08/09/24 05:07 MPV 10.3 fL (7.4-10.4) 08/09/24 05:07 Neut % (Auto) 74.6 % 08/09/24 05:07 Lymph % (Auto) 14.8 % 08/09/24 05:07 [place] % (Auto) 9.5 % 08/09/24 05:07 Eos % (Auto) 0.4 % 08/09/24 05:07 Baso % (Auto) 0.3 % 08/09/24 05:07 Neut # (Auto) 7.10 10^3/uL (1.8-7.7) 08/09/24 05:07 Lymph # (Auto) 1.4 10^3/uL (0.8-4.8) 08/09/24 05:07 [place] # (Auto) 0.9 10^3/uL (0.2-0.9) 08/09/24 05:07 Eos # (Auto) 0.0 10^3/uL (0.0-0.8) 08/09/24 05:07 Baso # (Auto) 0.0 10^3/uL (0.0-0.1) 08/09/24 05:07 Nucleated RBC % (auto) 0 % 08/09/24 05:07 Nucleated RBCs # 0.0 /100WBC 08/09/24 05:07 ESR < 1 mm/hr (0-10) 08/07/24 10:38 PT 12.60 SECONDS (12.1-14.9) 08/06/24 22:15 INR 0.88 (0.8-1.2) 08/06/24 22:15 Sodium 129 mmol/L (136-145) L 08/09/24 12:48 Potassium 4.2 mmol/L (3.5-5.1) 08/09/24 12:48 Chloride 92 mmol/L (98-107) L 08/09/24 12:48 Carbon Dioxide 26 mmol/L (22-29) 08/09/24 12:48 Anion Gap 15.2 (5-19) 08/09/24 12:48 BUN 11 mg/dL (8-23) 08/09/24 12:48 Creatinine 0.6 mg/dL (0.7-1.2) L 08/09/24 12:48 GFR Calculation 137.0 mL/min (90-130) H 08/09/24 12:48 Glucose 172 mg/dL (65-115) H 08/09/24 12:48 Calculated Osmolality 271 mOsm/kg (285-295) L 08/09/24 12:48 Calcium 8.9 mg/dL (8.5-10.5) 08/09/24 12:48 Phosphorus 3.6 mg/dL (2.5-4.5) 08/09/24 05:07 Magnesium 1.6 mg/dL (1.7-2.3) L 08/09/24 05:07 Total Bilirubin 0.6 mg/dL (0.15-1.2) 08/09/24 05:07 AST 23 U/L (0-40) 08/09/24 05:07 ALT 15 U/L (0-41) 08/09/24 05:07 Alkaline Phosphatase 74 U/L (40-130) 08/09/24 05:07 Creatine Kinase 69 U/L (39-308) 08/06/24 22:54 C-Reactive Protein 3.0 mg/L (0.0-4.9) 08/07/24 10:38 NT-Pro-B Natriuret Pep 186 pg/mL (0-125) H 08/07/24 10:38 Total Protein 6.8 g/dL (6.6-8.7) 08/09/24 05:07 Albumin 3.7 g/dL (3.5-5.2) 08/09/24 05:07 Globulin 3.1 g/dL (1.3-4.6) 08/09/24 05:07 Lipase 36 U/L (13-60) 08/06/24 22:54 Vitamin B12 377 pg/mL (232-1245) 08/07/24 10:38 Folate > 20.0 ng/mL (4.5-32.2) 08/07/24 10:38 Procalcitonin 0.04 ng/mL (0-0.5) 08/07/24 10:38 TSH 2.53 uIU/mL (0.27-4.20) 08/07/24 10:38 Ethyl Alcohol 159 mg/dL (0-10) H 08/07/24 02:00 RPR Nonreactive (Nonreactive) 08/07/24 10:38 Hepatitis A IgM Ab Non-reactive (Nonreactive) 08/07/24 10:38 Hep Bs Antigen Non-reactive (Nonreactive) 08/07/24 10:38 Hep B Core IgM Ab Non-reactive (Nonreactive) 08/07/24 10:38 Hepatitis C Antibody Non-reactive (Nonreactive) 08/07/24 10:38 HIV 1&2 Ab & HIV 1 Ag Non-reactive (Non-Reactiv) 08/07/24 10:38 HIV 1&2 Antibody Non-reactive (Non-Reactiv) 08/07/24 10:38 Vitals Last Vital Signs Temp 98.2 F 08/09/24 11:01 Pulse 98 08/09/24 13:14 Resp 16 08/09/24 11:01 BP 112/78 08/09/24 11:01 Pulse Ox 88 L 08/09/24 11:35 O2 Del Method Nasal Cannula 08/09/24 11:01 O2 Flow Rate 2 08/09/24 11:35 Discharge Plan Discharge Patient Disposition: Home Condition: Serious Prescriptions: New sodium chloride 1,000 mg Tablet,Soluble 1,000 mg PO BID 3 Days Qty: 6 0RF thiamine mononitrate (vit B1) [Vitamin B-1 (mononitrate)] 100 mg Tablet 100 mg PO DAILY 30 Days Qty: 30 0RF levofloxacin 750 mg tablet 750 mg PO DAILY 5 Days Qty: 5 0RF prednisone 20 mg tablet 20 mg PO BID 5 Days Qty: 10 0RF tiotropium bromide [Spiriva with HandiHaler] 18 mcg capsule, w/inhalation device 1 cap inhalation DAILY 30 Days Qty: 30 0RF Rx Instructions: puncture 1 cap using device; one dose = 2 inhalations Continued trazodone 50 mg tablet 50 mg PO BEDTIME gabapentin 300 mg capsule 300 mg PO TID potassium chloride 10 mEq tablet extended release 10 meq PO DAILY PRN (Reason: Only take when you take place) Qty: 30 0RF Rx Instructions: Only when you take Lasix magnesium oxide 400 mg (241.3 mg magnesium) tablet 400 mg PO DAILY PRN (Reason: unknown) folic acid 1 mg tablet 1 mg PO DAILY metoprolol tartrate 25 mg tablet 25 mg PO BID duloxetine 60 mg capsule,delayed release(DR/EC) 60 mg PO DAILY multivitamin with folic acid [Thera] 400 mcg Tablet 1 tab PO DAILY Qty: 30 0RF pantoprazole [Protonix] 40 mg tablet,delayed release (DR/EC) 40 mg PO QAM Qty: 30 3RF fluticasone propion-salmeterol [Advair Diskus] 500-50 mcg/dose blister with device 1 ea INHALATION BID Qty: 60 0RF albuterol sulfate [Ventolin HFA] 90 mcg/actuation HFA aerosol inhaler 1 puff INHALATION Q4H PRN (Reason: Shortness Of Breath Or Wheezing) Qty: 8.5 0RF Discontinued tiotropium bromide [Spiriva with HandiHaler] 18 mcg capsule, w/inhalation device 18 mcg INHALATION DAILY Discharge Orders: Discharge Order (Routine); Ordered 08/09/24 Ordered By: Eze Croft Other Ambulatory Orders: DME: Oxygen (Order) Location: None Selected Ordered By: Eze Croft Referrals: Sirisha Olivera MD [Physician] - 1 week (We have notified your physician's clinic of the need for a follow-up appointment to be scheduled. If you have not heard from them within the next 2 business days, please call them directly. ) Laron Booker MD [Primary Care Provider] - 08/17/24 3:00 pm Discharge Diet: Cardiac Discharge Activity: Resume usual activity Patient Instructions: Alcohol Abuse, Prednisone (By mouth), Thiamine (By mouth), Levofloxacin (By mouth) (Levaquin, Levaquin Leva-minoo), Tiotropium (By breathing), Using Oxygen at Home (GEN), Opioid Safety Activity Restrictions/Additional Instructions: - Please abstain from alcohol consumption - Please abstain from smoking - Please take antibiotics as prescribed - For your weakness please follow-up with primary care provider as outpatient, follow-up with neurology - Drink protein shakes twice daily Discharge Attestations Time Spent in Discharge Care*: greater than 30 min Status at Discharge: Cognitive status at discharge: cognitively intact, Behavioral status at discharge: cooperative, Quality Metrics Clinical Quality Measures [ No reported AMI, CVA or VTE this stay] Coding Level of Care Code 35430 Diagnoses Hyponatremia E87.1 Alcohol intoxication F10.929 Tobacco use disorder F17.200 Chronic obstructive pulmonary disease, unspecified COPD type J44.9 Toxic metabolic encephalopathy G92.8 Hypomagnesemia E83.42 Alcohol use disorder, severe, dependence F10.20 Acute alcoholic intoxication F10.929 Complication of substance-induced condition: with unspecified complication
--- NOTE | 2024-08-09 15:20 | PC.NURSE ---
Discharge instructions provided to pt at this time. NO questions or concerns at this time. Awaiting ride home being arranged by case mgt.
[2024-08-09] MEDS: LORazepam 2 mg Tablet PO (15:28)
--- NOTE | 2024-08-09 15:33 | PC.NURSE ---
oxygen tank delivered from [facility], [place]
--- NOTE | 2024-08-09 16:46 | PC.NURSE ---
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 To transport via wheelchair with home oxygen and all belongings.
== END 2024-08-09 16:47 | disposition home or self-care (01) | DRG 896 ==
LOC: ER 21:41 → ICU 08-07 03:47 → MEDSURG 08-08 17:16
PROVIDERS: Admitting Provider Internal Medicine; Emergency Provider Emergency Medicine; PCP Internal Medicine; Visit Provider Family Medicine
DX: F10.229 Alcohol dependence with intoxication, unspecified (principal); G92.8 Other toxic encephalopathy; J96.21 Acute and chronic respiratory failure with hypoxia; E87.1 Hypo-osmolality and hyponatremia; Z68.1 Body mass index [BMI] 19.9 or less, adult; E46 Unspecified protein-calorie malnutrition; Y90.7 Blood alcohol level of 200-239 mg/100 ml; E83.42 Hypomagnesemia; J44.9 Chronic obstructive pulmonary disease, unspecified; I10 Essential (primary) hypertension; F32.A Depression, unspecified; F17.210 Nicotine dependence, cigarettes, uncomplicated; F41.9 Anxiety disorder, unspecified; G89.29 Other chronic pain; Z79.899 Other long term (current) drug therapy; Z91.51 Personal history of suicidal behavior; Z91.148 Patient's other noncompliance with medication regimen for other reason; Z88.0 Allergy status to penicillin
CPT/HCPCS: 36415; 71045; 71250; 72131; 74176; 80048; 80053; 80074; 80307; 82550; 82607; 82746; 83690; 83735; 83880; 84100; 84145; 84295; 84443; 85025; 85610; 85651; 86140; 86592; 87806; 92523; 92610; 93005; 93306; 94640; 94760; 96374; 96376; 97161; 97167; 97530; 99285; G0378; J0456; J0696; J2270; J3475; J7030; J7050; J7131; J7512; J7626; J9999

== ENCOUNTER 2024-08-21 11:04 | Inpatient (IN) | payer MEDICAID, SELFPAY ==
--- OUTSIDE RECORDS SUMMARY | 2023-06-15 11:00 | XMS_ITS ---
Author Organization [facility] [employer] Address [facility] [place], [place] [id number] Care Team Providers Care Formula Room Worker Name Role Phone Yvon SMITH, Trevor Unavailable [phone] Rico Booker MD Unavailable Unavaila ble Allergies Allergen (clinical drug ingredient) Drug/Non Drug Allergy documented on EMR Reaction Allergy Type Onset Date Status penicillin V penicillin V potassium Unknown Drug Allergy Active REASON FOR VISIT New patient evaluation Encounters Encounter Location Date Provider Diagnosis [facility] [address] [place], [place] [id number] 06/15/2023 Trevor Sanz 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 2022 opioid (OUD) risk tool score = . This places the patient in the low/high risk category. Plan urine toxicology screen today in anticipation of possibly starting opioid therapy at future visit as well as to assess for any prescribed, unprescribed, and / or illicit controlled substance(s). Plan Of Treatment Treatment Notes Assessment Notes Other group home (current) drug therapy Patient was given a copy of the Treatment Agreement, signed by patient on . 2022 opioid (OUD) risk tool score = . This places the patient in the low/high risk category. Plan urine toxicology screen today in anticipation of possibly starting opioid therapy at future visit as well as to assess for any prescribed, unprescribed, and / or illicit controlled substance(s). Progress Notes * Vasyl REIS WDOB:[birth year] (63 yo M)Acc No.[id number]:06/15/2023 Patient: Vasyl FUENTES Provider: Dayami Sanz :1960 A ge:62 Y S ex:Male Date:06/15/2023 Address:[address] [place], [place] [id number] Subjective: * Chief Complaints: * 1 . New patient evaluation. * HPI: C ervical Spine: 62 year old male presents with c/o pain f or * i n the neck. T horacic Spine: c/o pain f or * i n the mid back. L umbar Spine: c/o pain f or * i n the lower back. S acro-Iliac / Coccyx: c/o pain f or * * . P otential Work or Litigation Related Injury: No: p atient stated pain is not due to a work or litigation related injury. P hysician's referral: Physician's referral received: f ofelia Booker for alcoholic polyneuropathy; see scanned documents. P hysician/Clinic notes: Notes received from: Pineda baxter [facility]; see scanned documents. P revious Imaging/Studies: CT o f the head on 04/17/22; of the head, C-spine and L-spine on 11/14/21; of the pelvis on 08/28/20; of the T-spine and L-spine on 07/10/20; see scanned documents. X-rays o f the chest on 11/25/22; of the C-spine on 08/28/20; of the L-spine on 08/28/20; of the pelvis on 05/23/15; see scanned documents. P revious Therapy: Previous therapy: p hysical therapy for * with * benefit for weeks; home exercises for * with * benefit for weeks; chiropractic manipulation for * with * benefit for weeks; ice/heat therapy with * benefit for weeks; muscle relaxants for * with * benefit for weeks; anti-inflammatories for * with * benefit for weeks. Medication history: * . M edications: * Medical History: A lcoholic polyneuropathy, Respiratory failure with hypoxia, Gastritis, Alcohol abuse with intoxication, Alcohol dependence with withdrawal delirium, Anemia, Anxiety and depression disorders, Chronic pain syndrome, Atherosclerosis of [place] arteries of the extremities, COPD, Hypertension, Mood disorder, Wernicke's encephalopathy, Visual hallucinations, Chest pains. * Allergies: p enicillin V potassium. Objective: Therapeutic Interventions: Assessment: * Assessment: 1. 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 * * ASA Status Classification: s core: * ?? need sedation??. 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 for * with * benefit for weeks; home exercises for * with * benefit for weeks; chiropractic manipulation for * with * benefit for weeks; ice/heat therapy with * benefit for weeks; muscle relaxants for * with * benefit for weeks; anti-inflammatories for * with * benefit for weeks Medication history: * Potential Work or Litigation Related Injury No: patient stated pain is not d ue to a work or litigation related injury Previous Imaging/Studies CT of the head on 04/17/22; of the head, C-spine and L-spine on 11/14/21; of the pelvis on 08/28/20; of the T-spine and L-spine on 07/10/20; see scanned documents X-rays of the chest on 11/11 09/02; of the C-spine on 08/28/20; of the L-spine on 08/28/20; of the pelvis on 05/23/15; see scanned documents Physician's referral Physician's referra l received: from Dr. Rico Booker for alcoholic polyneuropathy; see scanned documents Physician/Clinic notes Notes received from: Warren rivera [facility]; see scanned documents
--- OUTSIDE RECORDS SUMMARY | 2024-07-01 06:20 | XMS_ITS ---
Author Organization [facility] Address [address] [place] [address] Care Team Providers Care Steward/Stewardess Economy Class Name Role Phone Rico Booker Primary Care Provider REASON FOR VISIT refills Encounters Encounter Location Date Provider Diagnosis [facility] [address] [place] [id number] 07/01/2024 Rico Booker Plan Of Treatment No Information Progress Notes * JUAREZ VasylDOB:1960 (63 yo M)Acc No.[id number]:07/01/2024 Progress Notes Patient: Vasyl FUENTES Provider: Pineda Booker MD :1960 A ge:63 Y S ex:Male Date:07/01/2024 [facility] Subjective: * Chief Complaints: * 1 . Refills. * Medical History: Objective: * Vitals: Assessment: Plan: * Treatment: Forms: * Billing Information: * Visit Code: * Procedure Codes: Care Plan Details* * Electronic signature of Oni Booker MD on 08/23/2024 at 11:05 AM CDT Sign off status: Pending * Provider: Pineda Booker MD Date: 07/01/2024 Generated for Daniel flaherty/Faidalmisg/eTransmitting on: 08/23/2024 11:05 AM CDT
--- OUTSIDE RECORDS SUMMARY | 2024-07-07 08:20 | XMS_ITS ---
Author Organization [facility] Address [address] [place] [address] Care Team Providers Care Mercerizing Range Controller Name Role Phone Rico Booker Primary Care Provider [phone] REASON FOR VISIT 3 WEEK F/U Encounters Encounter Location Date Provider Diagnosis [facility] [address] [place] [phone] 07/07/2024 Rico Booker Plan Of Treatment No Information Progress Notes * JUAREZ, VasylDOB:1960 (63 yo M)Acc No.[id number]:07/07/2024 Progress Notes Patient: Vasyl FUENTES Provider: Pineda Booker MD :1960 A ge:63 Y S ex:Male Date:07/07/2024 [facility] Subjective: * Chief Complaints: * 1 . 3 WEEK F/U. * Medical History: Objective: * Vitals: Assessment: Plan: * Treatment: Forms: * Billing Information: * Visit Code: * Procedure Codes: Care Plan Details* * Electronic signature of Oni Booker MD on 08/23/2024 at 11:04 AM CDT Sign off status: Pending * Provider: Pineda Booker MD Date: 0 07/07/2024 Generated for Daniel flaherty/Faidalmisg/eTransmitting on: 08/23/2024 11:04 AM CDT
--- OUTSIDE RECORDS SUMMARY | 2024-08-17 10:00 | XMS_ITS ---
Author Organization [facility] Address [address] [place] [address] Care Team Providers Care Frame Catcher Name Role Phone Rico Booker Primary Care Provider REASON FOR VISIT follow-up hospitalization Encounters Encounter Location Date Provider Diagnosis [facility] [address] [place] [id number] 08/17/2024 Rico Booker Plan Of Treatment No Information Progress Notes * Vasyl PIZARRODOB:1960 (63 yo M)Acc No.[id number]:08/17/2024 Progress Notes Patient: Vasyl FUENTES Provider: Pineda Booker MD :1960 A ge:63 Y S ex:Male Date:08/17/2024 [id number] Subjective: * Chief Complaints: * 1 . Follow-up hospitalization. * Medical History: Objective: * Vitals: Assessment: Plan: * Treatment: Forms: * Billing Information: * Visit Code: * Procedure Codes: Care Plan Details* * Electronic signature of Oni Booker MD on 08/23/2024 at 11:05 AM CDT Sign off status: Pending * Provider: Pineda Booker MD Date: 08/17/2024 Generated for Daniel flaherty/[place]/eTransmitting on: 08/23/2024 11:05 AM CDT
[2024-08-21] VITALS (12 sets, daily range): BP systolic 113–156; BP diastolic 69–85; PULSE 62–112; RESP 14–17; TEMP 36.9; O2SAT 94–100; BMI 18.4
--- NOTE | 2024-08-21 11:10 | XRR_ITS ---
PROCEDURE INFORMATION: Exam: XR Lumbosacral Spine Exam date and time: 08/21/2024 11:51 AM Age: 63 years old Clinical indication: Injury or trauma; Blunt trauma (contusions or hematomas); Injury details: PT had a fall 2 days ago. PT has a laceration above his eye and he is having R shoulder pain, head pain and back pain. TECHNIQUE: Imaging protocol: Radiologic exam of the lumbosacral spine. Views: 2 or 3 views. COMPARISON: CT abdomen pelvis w con* [id number] 09/14/2020 8:54 PM FINDINGS: Bones/joints: There is a mild to moderate chronic appearing L1 compression deformity. There is slight grade 1 retrolisthesis of L1 on L2, L2 on L3, L3 on L4, and L4 on L5. Otherwise alignment is maintained. There is [id number] multilevel degenerative disc disease. Soft tissues: Unremarkable. XR/XR lumbar spine 2-3V* [id number] IMPRESSION: Chronic appearing L1 compression deformity.
--- NOTE | 2024-08-21 11:10 | XRR_ITS ---
PROCEDURE INFORMATION: Exam: XR Thoracic Spine Exam date and time: 08/21/2024 11:51 AM Age: 63 years old Clinical indication: Injury or trauma; Blunt trauma (contusions or hematomas); PT had a fall 2 days ago. PT has a laceration above his eye and he is having R shoulder pain, head pain and back pain. TECHNIQUE: Imaging protocol: Radiologic exam of the thoracic spine. Views: 3 views. COMPARISON: CR (CHEST, ) 08/21/2024 11:38 AM FINDINGS: Bones/joints: There is dextroscoliosis measuring 17 degrees. There is a mild T6 compression deformity. Otherwise the vertebral body heights and alignment are maintained. There is mild multilevel degenerative disc disease. Multiple old bilateral rib fractures are identified. Soft tissues: Unremarkable. XR/XR thoracic spine 3V* [id number] IMPRESSION: Mild T6 compression deformity. Otherwise no evidence of acute fracture.
--- NOTE | 2024-08-21 11:10 | XRR_ITS ---
PROCEDURE INFORMATION: Exam: XR Chest Exam date and time: 08/21/2024 11:38 AM Age: 63 years old Clinical indication: Injury or trauma; Blunt trauma (contusions or hematomas); Injury details: PT had a fall 2 days ago. PT has a laceration above his eye and he is having R shoulder pain, head pain and back pain. TECHNIQUE: Imaging protocol: Radiologic exam of the chest. Views: 1 view. COMPARISON: [place] [id number] 08/07/2024 10:01 AM FINDINGS: Lungs: Unremarkable. No consolidation. Pleural spaces: Unremarkable. No pleural effusion. No pneumothorax. Heart/Mediastinum: Unremarkable. No cardiomegaly. Bones/joints: Multiple old appearing bilateral rib fractures are identified. XR/XR chest 1V portable [id number] IMPRESSION: 1. No evidence of acute pulmonary process. 2. Multiple old appearing bilateral rib fractures.
--- NOTE | 2024-08-21 11:10 | CTR_ITS ---
PROCEDURE INFORMATION: Exam: CT Head Without Contrast Exam date and time: 08/21/2024 11:31 AM Age: 63 years old Clinical indication: Injury or trauma; Fall; Blunt trauma (contusions or hematomas) TECHNIQUE: Imaging protocol: Computed tomography of the head without contrast. Radiation optimization: All CT scans at this facility use at least one of these dose optimization techniques: automated exposure control; mA and/or kV adjustment per patient size (includes targeted exams where dose is matched to clinical indication); or iterative reconstruction. COMPARISON: CT head wo con* [id number] 04/12/2024 10:10 PM RADIATION DOSE METRICS: Total DLP (mGy-cm): 1076.2 FINDINGS: Brain: [id number] periventricular white matter hypodensities are identified. There is no evidence of acute parenchymal hemorrhage, extra-axial collection, or acute infarction. There is no mass effect, midline shift, or downward herniation. Cerebral ventricles: No ventriculomegaly. Paranasal sinuses: There is mild paranasal sinus mucosal thickening. Mastoid air cells: Visualized mastoid air cells are well aerated. Bones: There is an old appearing right nasal bone fracture identified. Soft tissues: Unremarkable. CT/CT head wo con* [id number] IMPRESSION: 1. No evidence of acute intracranial process. 2. Mild to moderate white matter hypodensities. Differential considerations include chronic microvascular ischemic change, demyelinating disease, or gliosis from infectious/inflammatory source.
--- NOTE | 2024-08-21 11:10 | XRR_ITS ---
PROCEDURE INFORMATION: Exam: XR Right Shoulder Exam date and time: 08/21/2024 11:38 AM Age: 63 years old Clinical indication: Injury or trauma; Blunt trauma (contusions or hematomas); Right; Injury details: PT had a fall 2 days ago. PT has a laceration above his eye and he is having R shoulder pain, head pain and back pain. TECHNIQUE: Imaging protocol: Radiologic exam of the right shoulder. Views: 2 or more views. COMPARISON: [place] [id number] 08/07/2024 10:01 AM FINDINGS: Bones/joints: There is a partially displaced acute fracture through the inferior right scapula. The glenohumeral joint and acromioclavicular joint are intact. There is mild calcific tendinosis. Multiple old appearing right rib fractures are identified. Soft tissues: Normal. XR/XR shoulder RT min 2V* [id number] IMPRESSION: Partially displaced acute fracture through the right inferior scapula.
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
--- NOTE | 2024-08-21 11:23 | ECG_ITS ---
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 Measurements Intervals Sells Rate: 77 P: 77 IL: 209 QRS: 83 QRSD: 77 T: 82 QT: 380 QTc: 432 Interpretive Statements SINUS RHYTHM Compared to ECG 08/06/2024 21:29:22 No significant changes Electronically Signed On 08-21-2024 21:09:09 CDT by Karen Vlilarreal M.D. [email or web address]
--- NOTE | 2024-08-21 11:27 | PC.NURSE ---
Patient is refusing an IV, pt is refusing fluids and medication. Patient does not want to be poked again for his additional bloodwork. Pt was poked once by lab and they only got a red tube. Pt does not want to be poked again. Pt states that he wants food. Pt states that he will stay for the CT scan of his head. Informed charge nurse, Renée, she woke with patient.
[2024-08-21 11:46] LABS: Alanine Aminotransferase 13 U/L (0-41); Alcohol Level 250 mg/dL (0-10); Alkaline Phosphatase 74 U/L (40-130); Anion Gap 18.1 (5-19); Aspartate Amino Transferase 24 U/L (0-40); Blood Urea Nitrogen 9 mg/dL (8-23); Calcium 8.6 mg/dL (8.5-10.5); Carbon Dioxide 22 mmol/L (22-29); Chloride 91 mmol/L (98-107); Creatine Phosphokinase 80 U/L (39-308); Creatinine Clr Calc Pharmacy 174.1923; Globulin 2.9 g/dL (1.3-4.6); Glomerular Filtration Rate 218.7 mL/min (90-130); Glucose 88 mg/dL (65-115); Osmolality Calculated 262 mOsm/kg (285-295); Potassium 4.1 mmol/L (3.5-5.1); Sodium 127 mmol/L (136-145); Total Bilirubin 0.3 mg/dL (0.15-1.2); Total Protein 6.9 g/dL (6.6-8.7)
--- NOTE | 2024-08-21 12:10 | CTR_ITS ---
PROCEDURE INFORMATION: Exam: CT Chest Without Contrast; Diagnostic Exam date and time: 08/21/2024 12:26 PM Age: 63 years old Clinical indication: Pain and injury or trauma; Fall; Blunt trauma (contusions or hematomas); Right-sided; Additional info: Scapul FX TECHNIQUE: Imaging protocol: Diagnostic computed tomography of the chest without contrast. Radiation optimization: All CT scans at this facility use at least one of these dose optimization techniques: automated exposure control; mA and/or kV adjustment per patient size (includes targeted exams where dose is matched to clinical indication); or iterative reconstruction. COMPARISON: [place] [id number] 08/07/2024 10:01 AM RADIATION DOSE METRICS: Total DLP (mGy-cm): 269.62 FINDINGS: Lungs: There is advanced COPD. There is a calcified granuloma again identified in the right lower lobe. There is mild secretion identified in the left mainstem bronchus. There is mild multifocal bilateral pulmonary scarring. Pleural spaces: Unremarkable. No pneumothorax. No pleural effusion. Heart: Unremarkable. No cardiomegaly. No pericardial effusion. Coronary arteries: Moderate coronary artery calcifications are identified. Lymph nodes: Unremarkable. No enlarged lymph nodes. Vasculature: Unremarkable. No aortic aneurysm. Bones/joints: There is an acute appearing fracture through the anterior superior endplate of L2 which causes mild to moderate vertebral body height loss. There is also an acute fracture through the inferior right scapula. Multiple old bilateral rib fractures are identified. Soft tissues: Unremarkable. CT/CT chest wo con [id number] IMPRESSION: 1. Acute appearing fracture through the anterior superior endplate of L2 which causes mild to moderate vertebral body height loss. Again seen is an acute fracture through the inferior right scapula. 2. Advanced COPD.
[2024-08-21] MEDS: thiamine 100 mg/mL 2mL SDV IVP (14:14)
[2024-08-21] MEDS: sodium chloride 0.9% 1,000 ML 999 ML IV (14:14)
[2024-08-21] MEDS: morphine 4 mg/mL SDV 1 mL IVP ×2 (14:45→16:23)
[2024-08-21] MEDS: ondansetron 2 mg/ML SDV 2 mL 4 MG IVP (14:45)
--- NOTE | 2024-08-21 16:21 | CTR_ITS ---
PROCEDURE INFORMATION: Exam: CT Right Upper Extremity Without Contrast, Shoulder Exam date and time: 08/21/2024 4:37 PM Age: 63 years old Clinical indication: Injury or trauma; Fall; Blunt trauma (contusions or hematomas); Shoulder; Right; Additional info: Scapula fracture TECHNIQUE: Imaging protocol: Computed tomography of the right upper extremity without contrast. Exam focused on the shoulder. Radiation optimization: All CT scans at this facility use at least one of these dose optimization techniques: automated exposure control; mA and/or kV adjustment per patient size (includes targeted exams where dose is matched to clinical indication); or iterative reconstruction. COMPARISON: CR (CHEST, ) 08/21/2024 11:38 AM RADIATION DOSE METRICS: Total DLP (mGy-cm): 245.21 FINDINGS: Bones/joints: Acute displaced fracture of the inferior scapular body. Acute nondisplaced fracture of the medial border of the scapula (image 36 of series 4). Glenohumeral and AC joints are intact without fracture or subluxation. Multiple old rib fractures on the right. Soft tissues: Edema of the shoulder girdle musculature compatible with strain, particularly of the subscapularis and infraspinatus. No evidence of fluid collection or hematoma. Severe emphysematous changes. CT/CT shoulder RT wo con* [id number] IMPRESSION: 1. Acute displaced fracture of the inferior scapular body. 2. Acute nondisplaced fracture of the medial border of the scapula. 3. Severe emphysematous changes. The presence of pulmonary emphysema on CT is an independent risk factor for lung cancer. In the absence of a history or active diagnosis of lung cancer, it is recommended that this patient with emphysema be evaluated for enrollment in a low dose CT lung cancer screening program.
[2024-08-21] MEDS: thiamine 100 mg/mL 2mL SDV IM (16:22)
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
[2024-08-21] MEDS: LORazepam 1 MG/0.5 ML injection 2 MG IVP (16:57)
--- NOTE | 2024-08-21 17:01 | PC.NURSE ---
Attempted to place allergy band on patient, patient states that he is no longer allergic to penicillin. Pt states that a doctor gave him penicillin and he said he took the penicillin and had no reaction and was fine. Pt did not want the allergy band on and stated that he was no longer allergic. I told him that until we could confirm that he was no longer in fact allergic to penicillin, I would have to leave the allergy in the computer.
[2024-08-21] MEDS: metoprolol tartrate 25 mg Tablet PO (17:46)
[2024-08-21 18:59] LABS: Basophils # 0.1 10^3/uL (0.0-0.1); Basophils % 0.8 %; Eosinophils # 0.4 10^3/uL (0.0-0.8); Eosinophils % 5.4 %; Hematocrit 34.9 % (37-53); Lymphocytes # 1.6 10^3/uL (0.8-4.8); Lymphocytes % 25.3 %; Mean Corpuscular HGB Conc 33.8 g/dL (30-55); Mean Corpuscular Hemoglobin 31.2 pg (27-33); Mean Corpuscular Volume 92.3 fl (82-101); Mean Platelet Volume 9.2 fL (7.4-10.4); Monocytes # 0.5 10^3/uL (0.2-0.9); Monocytes % 8.4 %; Neutrophils # 3.86 10^3/uL (1.8-7.7); Neutrophils % 59.8 %; Nucleated Red Blood Cells % 0 %; Platelet Count 310 10^3/cmm (157-399); Red Blood Count 3.78 10^6/uL (3.85-5.65); Red Cell Distribution Width 14.5 % (12.1-15.1); White Blood Count 6.45 10^3/uL (3.29-11.43)
[2024-08-21 19:18] LABS: Anion Gap 17.7 (5-19); Blood Urea Nitrogen 8 mg/dL (8-23); Calcium 8.2 mg/dL (8.5-10.5); Carbon Dioxide 25 mmol/L (22-29); Chloride 98 mmol/L (98-107); Creatinine Clr Calc Pharmacy 174.1923; Glomerular Filtration Rate 218.7 mL/min (90-130); Glucose 127 mg/dL (65-115); Osmolality Calculated 282 mOsm/kg (285-295); Potassium 4.7 mmol/L (3.5-5.1); Sodium 136 mmol/L (136-145)
[2024-08-21] MEDS: heparin 5,000 unit/mL INJ 1 mL 5000 UNIT SUBCUT (20:33)
[2024-08-21] MEDS: trazodone 50 mg Tablet PO (20:33)
[2024-08-22] VITALS (10 sets, daily range): BP systolic 102–178; BP diastolic 66–98; PULSE 72–97; RESP 16–18; TEMP 36.5–36.8; O2SAT 91–100
[2024-08-22 00:05] LABS: Anion Gap 12.9 (5-19); Blood Urea Nitrogen 10 mg/dL (8-23); Calcium 8.6 mg/dL (8.5-10.5); Carbon Dioxide 28 mmol/L (22-29); Chloride 101 mmol/L (98-107); Creatinine Clr Calc Pharmacy 116.1282; Glucose 122 mg/dL (65-115); Osmolality Calculated 284 mOsm/kg (285-295); Potassium 4.9 mmol/L (3.5-5.1); Sodium 137 mmol/L (136-145)
[2024-08-22 04:03] LABS: Urine Random Sodium 49 mmol/L
[2024-08-22 04:53] LABS: Basophils # 0.1 10^3/uL (0.0-0.1); Basophils % 0.8 %; Eosinophils # 0.3 10^3/uL (0.0-0.8); Eosinophils % 5.2 %; Hematocrit 36.9 % (37-53); Lymphocytes # 1.3 10^3/uL (0.8-4.8); Lymphocytes % 19.6 %; Mean Corpuscular HGB Conc 32.2 g/dL (30-55); Mean Corpuscular Hemoglobin 31.6 pg (27-33); Mean Corpuscular Volume 97.9 fl (82-101); Monocytes # 0.7 10^3/uL (0.2-0.9); Monocytes % 11.3 %; Neutrophils # 4.01 10^3/uL (1.8-7.7); Neutrophils % 62.9 %; Nucleated Red Blood Cells % 0 %; Platelet Count 313 10^3/cmm (157-399); Red Blood Count 3.77 10^6/uL (3.85-5.65); Red Cell Distribution Width 14.6 % (12.1-15.1); White Blood Count 6.37 10^3/uL (3.29-11.43)
[2024-08-22 05:05] LABS: Alanine Aminotransferase 11 U/L (0-41); Albumin Level 3.4 g/dL (3.5-5.2); Alkaline Phosphatase 70 U/L (40-130); Anion Gap 13.2 (5-19); Aspartate Amino Transferase 27 U/L (0-40); Blood Urea Nitrogen 10 mg/dL (8-23); Calcium 8.4 mg/dL (8.5-10.5); Carbon Dioxide 28 mmol/L (22-29); Chloride 100 mmol/L (98-107); Creatinine Clr Calc Pharmacy 139.3538; Glucose 107 mg/dL (65-115); Osmolality Calculated 282 mOsm/kg (285-295); Potassium 5.2 mmol/L (3.5-5.1); Sodium 136 mmol/L (136-145); Total Bilirubin 0.4 mg/dL (0.15-1.2); Total Protein 6.4 g/dL (6.6-8.7)
[2024-08-22 05:09] LABS: Magnesium 1.6 mg/dL (1.7-2.3)
[2024-08-22] MEDS: acetaminophen 325 mg Tablet 650 MG PO (06:04)
[2024-08-22] MEDS: pantoprazole DR 40 mg Tablet PO (06:05)
[2024-08-22] MEDS: magnesium sulfate premix 4 GM/100 ML PREMIX IV (07:23)
[2024-08-22] MEDS: folic acid 1 mg Tablet PO (08:39)
[2024-08-22] MEDS: duloxetine 60 mg Capsule PO (08:39)
[2024-08-22] MEDS: multivitamin therapeutic Tablet 1 TAB PO (08:39)
[2024-08-22] MEDS: metoprolol tartrate 25 mg Tablet PO ×2 (08:39→17:35)
[2024-08-22] MEDS: thiamine 100 mg Tablet PO (08:39)
[2024-08-22 08:43] LABS: Anion Gap 15.5 (5-19); Blood Urea Nitrogen 8 mg/dL (8-23); Calcium 8.5 mg/dL (8.5-10.5); Carbon Dioxide 26 mmol/L (22-29); Chloride 98 mmol/L (98-107); Creatinine Clr Calc Pharmacy 174.1923; Glomerular Filtration Rate 218.7 mL/min (90-130); Glucose 113 mg/dL (65-115); Osmolality Calculated 279 mOsm/kg (285-295); Potassium 4.5 mmol/L (3.5-5.1); Sodium 135 mmol/L (136-145)
[2024-08-22] MEDS: heparin 5,000 unit/mL INJ 1 mL 5000 UNIT SUBCUT (08:44)
--- NOTE | 2024-08-22 09:00 | PC.NURSE ---
PT REFUSING TO CHANGE INTO [facility]OWN PRIOR TO TRANSFER TO [facility]. RECEIVING NURSE NOTIFIED.
--- NOTE | 2024-08-22 09:12 | PC.CHAP ---
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 [] Patient/Family/Request visit [] Outpatient visit [] Follow-up visit [] Physician referral [] Code/Alert [x] Routine visit [] Staff referral [] Actively dying [] Patient sleeping [] Family support [] [x] Out of room [] Palliative care [] [] Receiving care in room [] Pre-surgical visit [] Trauma [] Long length of stay [] ICU visit [] Other: Relational/Emotional Strength [] Patient feels connected with others/family/visitors/staff [] Distress [] Loneliness/isolation [] Abandonment Spirituality of Patient [] Person of Keisha [] Attends Advent of their Keisha [] Believes in Prayer [] Reads Bible or Mu-Ism materials [] There are Spiritual issues to be addressed [employer]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 Interventions [] Prayer [] Active listening [] Non-anxious presence [] Spiritual/emotional support [] Crisis/trauma care [] Spiritual counseling [] Bereavement support [] Provided bereavement packet [] Provided Bible/devotional materials [] Provided toy/stuffed animal, coloring book to patient or family member [] Provided Communion [] Anointing/[place] [] Salvation [] Completed spiritual assessment [] Other: Impact on Illness or Injury [] Angry [] Fearful [] Anxious [] Often cries [] Exhaustion [] Unable to work [] Unable to attend confucianism [] Unable to walk/stand [] Unable to read [] Unable to drive [] Unable to eat/drink [] Unable to sleep [] Unable to be with family [] Patient intubated [] Other: Summary Time spent with patient
[2024-08-22] MEDS: morphine 4 mg/mL SDV 1 mL IVP (12:12)
--- NOTE | 2024-08-22 12:34 | P.PN_ITS ---
Subjective 2 Subjective: Seen this morning. Patient states he is unable to walk or get out of bed. He has a TLSO brace in place. We are waiting on right shoulder sling. Vitals/I&O/Wt Last Vital Signs Temp 98.5 F 08/21/24 11:05 Pulse 85 08/22/24 10:19 Resp 16 08/22/24 12:12 BP 128/91 08/22/24 08:30 Pulse Ox 97 08/22/24 10:19 O2 Del Method Nasal Cannula 08/22/24 10:19 O2 Flow Rate 2 08/22/24 10:19 08/21/24 08/22/24 08/22/24 22:59 06:59 14:59 Intake Total 1800 / 1800 100 / 100 Output Total 500 / 500 Balance 1300 / 1300 100 / 100 Weight last 48 hrs Weight 63.503 kg Physical Exam 2 Narrative: General: Sitting up in bed on 4 L nasal cannula. Cardiovascular: RRR. No gallops. No murmurs. Lungs: Breath sound diminished in bilateral bases. No wheezing or rales., TLSO brace in place. Abdomen: Normal bowel sounds, abdomen soft and nontender. Extremities: No cyanosis or clubbing. Musculoskeletal: No swollen or erythematous joints. Neurological: Unable to move right arm secondary to pain. Does have a known inferior scapular fracture. Data 08/22/24 04:40 08/22/24 08:12 A&P Assessment and plan (1) Hyponatremia: (2) Alcohol intoxication: (3) Tobacco use disorder: (4) COPD (chronic obstructive pulmonary disease): (5) Toxic metabolic encephalopathy: (6) Hypomagnesemia: (7) Alcohol use disorder, severe, dependence: (8) Acute alcoholic intoxication: Plan #Fall #Right scapular fracture #L2 compression fracture #Severe acute on chronic hypovolemic hyponatremia secondary to Beer Potomania, 127 #Alcohol abuse #Alcohol intoxication #Tobacco use disorder #Hypoxia #Acute on chronic hypoxic respiratory failure/COPD #History of depression/panic attacks ? Patient has a history of emphysema. Requiring nasal cannula at this time. ? Patient most likely hypoventilating secondary to scapular fracture pain. ? Continue DuoNeb every 6 hours as needed ? Patient recently completed prednisone, Rocephin, azithromycin. ? Chest x-ray does not show any consolidation. - Nicotine patch ordered ? Continue thiamine folic acid, metoprolol tartrate 25 twice daily, duloxetine, gabapentin ? Continue Pulmicort twice daily ? Check CBC ? Right scapular fracture. Discussed with orthopedic surgery. Will request CT right shoulder at this time for further evaluation ? L2 compression fracture. Place TLSO brace. - Placed on CIOR protocol - Sodium 127. Patient does have chronic hyponatremia secondary to alcohol use. He did get 2 L normal saline bolus in ER. I will hold off on further fluids at this time. Check urine sodium, serum, urine osmolality. ? Avoid correction more than 6-8 in 24-hour period. In the past patient has required hypertonic saline. DVT prophylaxis: SCDs for now Will place on heparin SQ twice daily once CBC has been reviewed. Check PT OT Case management referral for possible SNF placement 08/22/2024 Sodium improved to 135. Magnesium 1.6. Will replete 4 g today. TLSO brace in place Right shoulder sling ordered. PT OT Currently patient is unable to ambulate on his own. PT will continue to work with the patient. He is on 2 L nasal cannula. Patient does have a right inferior scapular fracture. It does not involve the joint. CT shoulder reviewed. Safe discharge planning. I had a lengthy discussion with the patient regarding potentially going to a rehab facility for a few weeks however he is not interested in that at this time. Consult Dr. Liz for L2 compression fracture. Will await further recommendations. PDMP PDMP Reviewed: Not Reviewed Attestations 2 Medical Necessity Statement*: Observation admission for compression fracture, scapular fracture, alcohol intoxication. Diagnoses Hyponatremia E87.1 Alcohol intoxication F10.929 Tobacco use disorder F17.200 Chronic obstructive pulmonary disease, unspecified COPD type J44.9 Toxic metabolic encephalopathy G92.8 Hypomagnesemia E83.42 Alcohol use disorder, severe, dependence F10.20 Acute alcoholic intoxication F10.929 Complication of substance-induced condition: with unspecified complication
[2024-08-22 13:10] LABS: Anion Gap 13.9 (5-19); Blood Urea Nitrogen 9 mg/dL (8-23); Calcium 8.5 mg/dL (8.5-10.5); Carbon Dioxide 27 mmol/L (22-29); Chloride 95 mmol/L (98-107); Creatinine Clr Calc Pharmacy 139.3538; Glucose 124 mg/dL (65-115); Osmolality Calculated 272 mOsm/kg (285-295); Potassium 4.9 mmol/L (3.5-5.1); Sodium 131 mmol/L (136-145)
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
--- NOTE | 2024-08-22 13:42 | MR_ITS ---
WS: [id number] MRI THORACIC SPINE WITHOUT CONTRAST TECHNIQUE: Sagittal T1, T2 and STIR imaging. Axial T2 imaging. Noncontrast imaging obtained. CLINICAL INFORMATION: compression fx COMPARISON: None. FINDINGS: Moderate thoracic curve. Mild to moderate thoracic kyphosis. No acute compression fractures in the thoracic spine. Few Schmorl's nodes in the lower thoracic spine. Mild chronic anterior wedging in the midthoracic spine. No high- grade central canal stenosis. Cord signal is normal. Moderate facet arthropathy lower thoracic spine. Partially visualized chronic LEFT rib fractures with callus formation. MR/MR thoracic spin wo con* [id number] IMPRESSION: No acute thoracic spine findings
--- NOTE | 2024-08-22 13:42 | MR_ITS ---
WS: [id number] MRI LUMBAR SPINE NONCONTRAST TECHNIQUE: Sagittal T1, T2 and STIR imaging. Axial T1 and T2 imaging. CLINICAL INFORMATION: compression fx COMPARISON: None. FINDINGS: Some images significantly degraded by motion artifact Mild lumbar curve. Acute compression superior endplate L2 with paravertebral soft tissue edema. Loss of approximately 20% vertebral body height. No significant retropulsion. Edema extends into the RIGHT pedicle. No other acute appearing compression fractures. L1-L2: No significant disc bulging. Mild facet arthropathy. Spinal canal and foramen are patent. L2-L3: Mild annular bulging. Tiny annular fissure. Mild LEFT foraminal narrowing. Mild facet arthropathy. L3-L4: Mild annular bulging. Mild facet arthropathy. Small foraminal protrusions with mild foraminal narrowing. L4-L5: Slight retrolisthesis. Mild annular bulging. Mild RIGHT foraminal narrowing. Moderate facet arthropathy. L5-S1: Mild annular bulging. Slight effacement of the ventral thecal sac with impingement of traversing S1 nerve roots. Moderate facet arthropathy. Mild RIGHT greater than LEFT foraminal narrowing. Visualized pelvic bony structures: Normal. Paravertebral soft tissues: Normal. MR/MR lumbar spine wo con* [id number] IMPRESSION: 1. Acute compression superior endplate L2 with edema described above. No retro pulsion. Loss of approximately 20% vertebral body height. 2. No high-grade central canal stenosis. 3. Disc bulging L5-S1 with impingement on the traversing S1 nerve roots in the subarticular recess. Mild RIGHT foraminal narrowing.
[2024-08-22] MEDS: LORazepam 1 MG/0.5 ML injection 2 MG IVP (15:53)
--- NOTE | 2024-08-22 16:18 | PC.NURSE ---
Pt claims he came to the hospital with a wallet but there is no wallet to be found with patient belongings. Cigarette and lighters found and locked in pyxis along with clothes, shoes, flip phone, and necklace but no wallet was found.
[2024-08-22] MEDS: trazodone 50 mg Tablet PO (20:24)
[2024-08-22] MEDS: HYDROmorphone 0.5 MG/0.5 ML INJ IVP (20:24)
[2024-08-22] MEDS: LORazepam 2 mg Tablet PO (20:39)
[2024-08-23] VITALS (27 sets, daily range): BP systolic 82–160; BP diastolic 56–106; PULSE 62–109; RESP 11–24; TEMP 36.6; O2SAT 95–100
[2024-08-23] MEDS: acetaminophen 325 mg Tablet 650 MG PO ×2 (00:51→08:50)
[2024-08-23] MEDS: LORazepam 2 mg Tablet PO (00:51)
--- NOTE | 2024-08-23 02:44 | XRR_ITS ---
PROCEDURE INFORMATION: Exam: XR Chest Exam date and time: 08/23/2024 2:55 AM Age: 63 years old Clinical indication: Other: Confusion TECHNIQUE: Imaging protocol: Radiologic exam of the chest. Views: 1 view. COMPARISON: CT chest con [id number] 08/21/2024 12:26 PM FINDINGS: Lungs: Pulmonary emphysematous changes. The lungs are free of consolidation. Pleural spaces: Unremarkable. No pleural effusion. No pneumothorax. Heart/Mediastinum: Unremarkable. No cardiomegaly. Bones/joints: Multiple old bilateral rib fractures. Mild degenerative changes involve the spine. XR/XR chest 1V portable [id number] IMPRESSION: No acute abnormality.
[2024-08-23] MEDS: LORazepam 1 MG/0.5 ML injection (03:06)
--- NOTE | 2024-08-23 03:54 | CTR_ITS ---
PROCEDURE INFORMATION: Exam: CT Head Without Contrast Exam date and time: 08/23/2024 4:20 AM Age: 63 years old Clinical indication: Injury or trauma; Fall; Blunt trauma (contusions or hematomas); Consciousness not specified; Additional info: Fall- hit head TECHNIQUE: Imaging protocol: Computed tomography of the head without contrast. Radiation optimization: All CT scans at this facility use at least one of these dose optimization techniques: automated exposure control; mA and/or kV adjustment per patient size (includes targeted exams where dose is matched to clinical indication); or iterative reconstruction. COMPARISON: CT head wo con* [id number] 08/21/2024 11:31 AM RADIATION DOSE METRICS: Total DLP (mGy-cm): 1073.5 FINDINGS: Brain: Global parenchymal brain atrophy. Stable periventricular white matter hypoattenuation, nonspecific, however likely represents chronic microvascular disease. Intracranial calcified atherosclerotic disease. Cerebral ventricles: Compensatory dilation of the ventricles and CSF spaces. Paranasal sinuses: Postoperative change of the maxillary sinuses anteriorly. Mastoid air cells: Visualized mastoid air cells are well aerated. 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 Soft tissues: Unremarkable. Other findings: Left cerumen impaction. CT/CT head wo con* [id number] IMPRESSION: No acute intracranial findings.
--- NOTE | 2024-08-23 04:25 | PC.NURSE ---
Fall This RN was notified by auxiliary staff that pt was found sitting in a hallway floor. Upon arrival, pt was dressed and stating that he was trying to find a way outside. Pt was oriented to name and place, but did not know the date or time. Pt stated that he had fallen and hit his head. shipper and primary RN called to location, pt placed in wheel chair and escort back to room. No bleeding or obvious abnormalities noted. Pt stated take it easy when lifting him from the floor I broke my back yesterday . Physician notified. Verbal orders to transfer to ICU after CT scan for potential precedex gtt.
[2024-08-23] MEDS: LORazepam 1 MG/0.5 ML injection 2 MG IVP ×2 (04:49→09:29)
[2024-08-23] MEDS: metoprolol tartrate 25 mg Tablet PO ×2 (06:05→08:50)
[2024-08-23 06:37] LABS: Basophils # 0.1 10^3/uL (0.0-0.1); Basophils % 0.9 %; Eosinophils # 0.3 10^3/uL (0.0-0.8); Eosinophils % 3.9 %; Hematocrit 36.8 % (37-53); Lymphocytes # 1.1 10^3/uL (0.8-4.8); Lymphocytes % 16.5 %; Mean Corpuscular HGB Conc 33.2 g/dL (30-55); Mean Corpuscular Hemoglobin 31.7 pg (27-33); Mean Corpuscular Volume 95.6 fl (82-101); Mean Platelet Volume 9.3 fL (7.4-10.4); Monocytes # 0.7 10^3/uL (0.2-0.9); Monocytes % 11.1 %; Neutrophils # 4.44 10^3/uL (1.8-7.7); Neutrophils % 67.3 %; Nucleated Red Blood Cells % 0 %; Platelet Count 331 10^3/cmm (157-399); Red Blood Count 3.85 10^6/uL (3.85-5.65); Red Cell Distribution Width 14.2 % (12.1-15.1)
[2024-08-23] MEDS: pantoprazole DR 40 mg Tablet PO (06:45)
[2024-08-23] MEDS: HYDROmorphone 0.5 MG/0.5 ML INJ 1 MG IVP (06:50)
[2024-08-23 06:57] LABS: Anion Gap 16.2 (5-19); Blood Urea Nitrogen 9 mg/dL (8-23); Calcium 9.4 mg/dL (8.5-10.5); Carbon Dioxide 28 mmol/L (22-29); Chloride 91 mmol/L (98-107); Creatinine Clr Calc Pharmacy 120.4421; Glucose 99 mg/dL (65-115); Magnesium 1.6 mg/dL (1.7-2.3); Osmolality Calculated 271 mOsm/kg (285-295); Potassium 4.2 mmol/L (3.5-5.1); Sodium 131 mmol/L (136-145)
--- NOTE | 2024-08-23 07:56 | P.PN_ITS ---
Subjective 2 Subjective: Patient was found in the hallway last night and DTs likely. Currently he is in the ICU on Dilaudid and Ativan. Did not feel comfortable getting consent from him for surgery. Will hold off from doing any type of surgery until hospitalist feel it would be safe. Vitals/I&O/Wt Last Vital Signs Temp 97.8 F 08/23/24 04:00 Pulse 77 08/23/24 04:00 Resp 17 08/23/24 04:00 BP 145/93 08/23/24 04:00 Pulse Ox 96 08/23/24 04:00 O2 Del Method Nasal Cannula 08/23/24 04:00 O2 Flow Rate 4 08/23/24 04:00 08/22/24 08/23/24 08/23/24 22:59 06:59 14:59 Intake Total 720 / 820 Output Total 550 / 550 450 / 1000 Balance 170 / 270 -450 / -180 Weight last 48 hrs Weight 121 lb Weight 121 lb 4.068 oz Weight 140 lb Physical Exam 2 Narrative: Patient currently in ICU on Ativan and Dilaudid Data 08/23/24 06:23 08/23/24 06:23 A&P Assessment and plan (1) Closed lumbar vertebral fracture: Patient is currently comfortable in bed Will reevaluate when more stable Did not feel comfortable getting consent from him for surgery. Will hold off from doing any type of surgery until hospitalist feel it would be safe. PDMP PDMP Reviewed: Not Reviewed Attestations 2 Medical Necessity Statement*: Per primary service Coding Level of Care Code Acute Code for [facility] Fwd Diagnoses Closed lumbar vertebral fracture S32.009A Fracture healing: with routine healing Fracture morphology: wedge compression Lumbar vertebra fracture level: L2
[2024-08-23] MEDS: nicotine 21 mg Patch 1 PATCH TRANSDERMA (08:47)
[2024-08-23] MEDS: multivitamin therapeutic Tablet 1 TAB PO (08:50)
[2024-08-23] MEDS: folic acid 1 mg Tablet PO (08:50)
[2024-08-23] MEDS: thiamine 100 mg Tablet PO (08:50)
[2024-08-23] MEDS: duloxetine 60 mg Capsule PO (08:50)
[2024-08-23] MEDS: dexmedeTOMIDine 0.9 % NaCL 400 MCG/100 ML PREMIX IV (11:01)
--- OUTSIDE RECORDS SUMMARY | 2024-08-23 11:05 | XMS_ITS | Clinical Summary ---
Author Organization [facility] Address [address] [place] [address] Phone Care Team Providers Care Power Plant Operations Manager Name Role Phone Unavailable Primary Care Provider Unavailabl e Medications metoprolol tartrate (LOPRESSOR) 25 mg tablet Take 25 mg by mouth 2 times daily. Active gabapentin (NEURONTIN) 300 mg capsule Take 300 mg by mouth 3 times daily. Active traZODone (DESYREL) 50 mg tablet Take 50 mg by mouth daily at bedtime. Active albuterol sulfate HFA 90 mcg/actuation aerosol inhaler Take 2 Puffs by inhalation every 4 hours as needed for Shortness of Breath. Active DULoxetine (CYMBALTA) 60 mg Capsule, Delayed Release(E.C.) Take 60 mg by mouth daily. Active fluticasone-ume clidinium-vilan terol (Trelegy Ellipta) 100-62.5-25 mcg Disk with Device Take 1 Puff by inhalation daily. Active folic acid (FOLVITE) 1 mg tablet Take 1 mg by mouth daily. Active MAGNESIUM OXIDE ORAL Take 400 mg by mouth daily. Active pantoprazole (PROTONIX) [address] for susp in Packet Take 40 mg by mouth daily. Active multivitamin (DAILY-CRISELDA) tablet Take 1 Tablet by mouth daily. Active dextromethorpha n-guaiFENesin (ROBITUSSIN DM) 10-100 mg/5 mL solution Take 5 mL by mouth every 4 hours as needed for Cough. 5 Active oxyCODONE (ROXICODONE) 5 mg tabletIndicatio ns:Mandibular abscess Take 1 Tablet (5 mg) by mouth every 6 hours as needed for Pain, Moderate or Pain, Severe. Max Daily Amount: 20 mg Active sennosides-docu sate sodium (SENNA-S) 8.6-50 mg tablet Take 1 Tablet by mouth 2 times daily. Active thiamine mononitrate (VITAMIN B-1) 100 mg tablet Take 1 Tablet (100 mg) by mouth daily. Active amoxicillin-cla vulanate (AUGMENTIN) 875-125 mg tablet Take 1 Tablet by mouth every 12 hours. To be taken after the IV antibiotics 6 5 08/10/19 Active Problems Problem Noted Date Diagnosed Date Protein-calorie malnutrition, moderate Facial abscess 06/06/2024 Dental abscess 06/04/2024 Mandibular abscess 06/04/2024 Emphysema of lung 06/04/2024 Alcohol use disorder 06/04/2024 Chronic respiratory failure with hypoxia 025 Encounters Date Type Department Care Team Description 08/16/2024 External Device Data ST[facility] ABSTRACTION Provider, Abstract 08/09/2024 External Device Data [facility] ABSTRACTION Provider, Abstract 08/09/2024 External Device Data [facility] ABSTRACTION Provider, Abstract 07/26/2024 External Device Data [facility] ABSTRACTION Provider, Abstract 07/12/2024 External Device Data [facility] ABSTRACTION Provider, Abstract 07/05/2024 External Device Data [facility] ABSTRACTION Provider, Abstract 07/05/2024 External Device Data [facility] ABSTRACTION Provider, Abstract 07/05/2024 External Device Data [facility] ABSTRACTION Provider, Abstract 06/14/2024 Orders Only [facility] HIM [address] [place] [phone] Provider, Abstract 06/10/2024 [facility] [address] [place] [phone] Erik Ridley MD IV ABX- coordinate care 06/07/2024 External Device Data [facility] ABSTRACTION Provider, Abstract 06/07/2024 External Device Data [facility] ABSTRACTION Provider, Abstract 06/07/2024 External Device Data [facility] ABSTRACTION Provider, Abstract 06/05/2024 12:40 PM SOLE SKIVER Anesthesia Event [facility] Operating Room [address] [place] [phone] Ye Irene MD 06/05/2024 11:45 AM SOLE SKIVER - 06/05/2024 1:31 PM SOLE SKIVER Surgery [facility] Operating Room [address] [place] [address] Pritesh Kan DDS ABSCESS INCISION AND DRAINAGE 06/04/2024 2:41 PM SOLE SKIVER - 06/10/2024 3:59 PM SOLE SKIVER Hospital Encounter [facility] 6B Medical Surgical [address] [place] [address] Kenneth Krishnan MD Phelps, Jamie, MD Khatiwada, Abhaya, MD Dental abscess Discharge Disposition: Left Against Medical Advice 06/04/2024 Travel from Last 3 Months Social History Tobacco Use Types Packs/Day Years Used Date Smoking Tobacco: Every Day Cigarettes 1 50 Tobacco Cessation:Ready to Q uit: Not Asked; Counseling Given: Not Answered Feeling Safe Answer Date Recorded Are you in a relationship wi th someone who hurts you emotionally and/or physically? No 06/04/2024 Food Insecurity Answer Date Recorded Patient needs follow up regardin 08/09/2024 Transportation Needs Answer Date Record ed Patient needs follow up regardin 08/09/2024 Housing Stability Answer Date Recorded Social/Environmental Concerns Housing instabilit y 06/04/2024 Utility Needs Answer Date Recorded Patient needs follow up regardin 08/09/2024 Sex and Gender Information Value Date Recorded Sex Assigned at Not on file Legal Sex Male 1:32 AM SOLE SKIVER Gender Identity Not on file Sexual Orientation Not on file Last Filed Vital Signs Vital Sign Reading Time Taken Comments Blood Pressure 117/70 06/10/2024 7:48 AM SOLE SKIVER Pulse 67 06/10/2024 7:48 AM SOLE SKIVER Temperature 36.5 C (97.7 F) 06/10/2024 7:48 AM SOLE SKIVER Respiratory Rate 12 06/10/2024 7:48 AM SOLE SKIVER Oxygen Saturation 98% 06/10/2024 7:48 AM SOLE SKIVER Inhaled Oxygen Concentration - - Weight 67.1 kg (147 lb 14.9 oz) 06/06/2024 5:20 AM SOLE SKIVER Height 185.4 cm (6' 1 ) 06/04/2024 2:54 PM SOLE SKIVER Body Mass Index 19.52 06/04/2024 2:54 PM SOLE SKIVER Plan of Treatment Health Maintenance Due Date Last Done Comments DTAP/TDAP/TD VACCINES (1 - Tdap) 1981 COLORECTAL SCREENING 12/02/2007 Colorectal Cancer Screening 12/02/2007 FIT-DNA Q 3 years 12/02/2007 FIT/FOBT Q 1 year 12/02/2007 Flex Sig/CT Colonography Q 5 years 12/02/2007 Lung Cancer Screening 2012 ZOSTER VACCINE (1 of 2) 2012 RSV VACCINE (60+ or ) (1 - Risk 60-74 years 1-dose series) 2022 INFLUENZA VACCINE (#1) 2023 Procedures Procedure Name Priority Date/Time Associated Diagnosis Comments TELEMETRY REPORT 06/13/2024 3:26 PM SOLE SKIVER MAGNESIUM LEVEL Routine 06/10/2024 10:08 AM SOLE SKIVER BASIC METABOLIC PANEL Routine 06/10/2024 10:08 AM SOLE SKIVER CBC WITH DIFFERENTIAL Routine 06/10/2024 10:08 AM SOLE SKIVER MAGNESIUM LEVEL Routine 06/09/2024 4:09 AM SOLE SKIVER BASIC METABOLIC PANEL Routine 06/09/2024 4:09 AM SOLE SKIVER CBC WITH DIFFERENTIAL Routine 06/09/2024 4:09 AM SOLE SKIVER INSERT PICC LINE Routine 06/08/2024 3:10 PM SOLE SKIVER MAGNESIUM LEVEL Routine 06/08/2024 4:59 AM SOLE SKIVER BASIC METABOLIC PANEL Routine 06/08/2024 4:59 AM SOLE SKIVER CBC WITH DIFFERENTIAL Routine 06/08/2024 4:59 AM SOLE SKIVER HIV DETECTION W/REFLX CONFIRMATION Routine 06/08/2024 4:59 AM SOLE SKIVER HEMOGLOBIN A1C Routine 06/07/2024 3:53 AM SOLE SKIVER BASIC METABOLIC PANEL Routine 06/07/2024 3:53 AM SOLE SKIVER CBC WITH DIFFERENTIAL Routine 06/07/2024 3:53 AM SOLE SKIVER BASIC METABOLIC PANEL Routine 06/06/2024 4:26 AM SOLE SKIVER CBC WITH DIFFERENTIAL Routine 06/06/2024 4:26 AM SOLE SKIVER POC GLUCOSE Routine 06/05/2024 2:08 PM SOLE SKIVER PATHOLOGY Pathology 06/05/2024 1:51 PM SOLE SKIVER AFB CULTURE WITH STAIN Routine 1:17 PM SOLE SKIVER ANAEROBIC/AEROBIC CULTURE W GRAM STAIN Routine 06/05/2024 1:17 PM SOLE SKIVER FUNGUS CULTURE, OTHER Routine 06/05/2024 1:17 PM SOLE SKIVER PA ANES INSERT ENDOTRACHEAL AIRWAY Routine 06/05/2024 12:46 PM SOLE SKIVER PA REPAIR FISTULA OROMAXILLARY 06/05/2024 11:45 AM SOLE SKIVER TEETH MULTIPLE EXTRACTION 06/05/2024 11:45 AM SOLE SKIVER ABSCESS INCISION AND DRAINAGE 06/05/2024 11:45 AM SOLE SKIVER LACTIC ACID Stat 06/05/2024 6:07 AM SOLE SKIVER BASIC METABOLIC PANEL Routine 06/05/2024 6:07 AM SOLE SKIVER CBC WITH DIFFERENTIAL Routine 06/05/2024 6:07 AM SOLE SKIVER BLOOD CULTURE Routine 06/04/2024 5:06 PM SOLE SKIVER BLOOD CULTURE Routine 06/04/2024 5:06 PM SOLE SKIVER LACTIC ACID Stat 06/04/2024 5:05 PM SOLE SKIVER C-REACTIVE PROTEIN Routine 06/04/2024 5: 05 PM SOLE SKIVER SEDIMENTATION RATE Routine 06/04/2024 5: 05 PM SOLE SKIVER COMPREHENSIVE METABOLIC PANEL Routine 06/04/2024 5:05 PM SOLE SKIVER CBC WITH DIFFERENTIAL Routine 06/04/2024 5:05 PM SOLE SKIVER BLOOD CULTURE Routine 06/04/2024 5:05 PM SOLE SKIVER BLOOD CULTURE Routine 06/04/2024 5:05 PM SOLE SKIVER XR CHEST PA OR AP 1 VW Routine 4:17 PM SOLE SKIVER RT ASSESS AND TREAT Routine 06/04/2024 3 :55 PM SOLE SKIVER COMPREHENSIVE METABOLIC PANEL Routine 06/03/2024 11:57 AM SOLE SKIVER from Last 3 Months Results * TELEMETRY REPORT (06/13/2024 3:26 PM SOLE SKIVER) us Provider Scanning ECG ORDERABLES Final Result * (ABNORMAL) CBC WITH DIFFERENTIAL (06/10/2024 10:08 AM SOLE SKIVER) Only the most recent of7 resultswithin the time period is included. WBC 8.6 4.8 - 10.8 K/uL 06/10/2024 11:22 AM SOLE SKIVER [facility] RBC 3.35(L) 4.60 - 6.20 M/uL 06/10/2024 11:22 AM SOLE SKIVER [facility] HEMOGLOBIN 11.2(L) 14.0 - 18.0 g/dL 06/10/2024 11:22 AM [facility] HEMATOCRIT 34.0(L) 41.0 - 53.0 % 06/10/2024 11:22 AM SOLE SKIVER [facility] MCV 101.5 84.0 - 103.0 fL 06/10/2024 11:22 AM [facility] MCH 33.4 27.0 - 34.0 pg 06/10/2024 11:22 AM [facility] MCHC 32.9 30.0 - 35.0 g/dL 06/10/2024 11:22 AM [facility] Array Storm [facility] RDW 15.4(H) 11.0 - 14.5 % 06/10/2024 11:22 AM [facility] RDW-STDEV 57.5(H) 37.0 - 54.0 fL 06/10/2024 11:22 AM [facility] PLATELETS 590(H) 140 - 440 K/uL 06/10/2024 11:22 AM [facility] MPV 9.5 8.9 - 12.8 fL 06/10/2024 11:22 AM [facility] NEUTROPHILS 65 42 - 75 % 06/10/2024 11:22 AM [facility] LYMPHOCYTES 14(L) 24 - 44 % 06/10/2024 11:22 AM [facility] MONOCYTES 17(H) 2 - 10 % 06/10/2024 11:22 AM [facility] EOSINOPHILS 3 0 - 7 % 06/10/2024 11:22 AM [facility] BASOPHILS 0 0 - 1 % 06/10/2024 11:22 AM [facility] IMMATURE GRANULOCYTES 1 0 - 2 % 06/10/2024 11:22 AM [facility] NEUTROPHIL ABSOLUTE 5.58 2.00 - 8.00 K/uL 06/10/2024 11:22 AM [facility] LYMPHOCYTE ABSOLUTE 1.21 1.20 - 4.00 K/uL 06/10/2024 11:22 AM [facility] MONOCYTE ABSOLUTE 1.44(H) 0.10 - 0.60 K/uL 06/10/2024 11:22 AM [facility] EOSINOPHIL ABSOLUTE 0.21 0.00 - 0.70 K/uL 06/10/2024 11:22 AM [facility] BASOPHILS ABSOLUTE 0.03 0.00 - 0.20 K/uL 06/10/2024 11:22 AM [facility] IMMATURE GRANULOCYTES ABSOLUTE 0.08 0.00 - 0.10 K/uL 06/10/2024 11:22 AM [facility] Blood Venipuncture / Unknown 06/10/2024 10:08 AM SOLE SKIVER 06/10/2024 11:17 AM SOLE SKIVER Oswaldo Warner MD HEMATOLOGY ORDERABLES Final Result Performing Organization Address City/[facility]/ZIP Co de Phone Number [facility] CLIA # [id number] [address] [address] [place] [address] * (ABNORMAL) MAGNESIUM LEVEL (06/10/2024 10:08 AM SOLE SKIVER) Only the most recent of3 resultswithin the time period is included. MAGNESIUM 1.5(L) 1.6 - 2.4 mg/dL 06/10/2024 11:54 AM [facility] Blood Venipuncture / Unknown 06/10/2024 10:08 AM SOLE SKIVER 06/10/2024 11:16 AM SOLE SKIVER Oswaldo Warner MD CHEMISTRY ORDERABLES Final R esult Performing Organization Address [facility] Co de Phone Number [facility] CLIA # [id number] [address] [address] [place] [address] * (ABNORMAL) BASIC METABOLIC PANEL (06/10/2024 10:08 AM SOLE SKIVER) Only the most recent of6 resultswithin the time period is included. SODIUM 135(L) 136 - 145 mmol/L 06/10/2024 11:54 AM [facility] POTASSIUM 4.1 3.5 - 5.1 mmol/L 06/10/2024 11:54 AM [facility] CHLORIDE 97(L) 98 - 107 mmol/L 06/10/2024 11:54 AM [facility] CO2 28 22 - 29 mmol/L 06/10/2024 11:54 AM [facility] CALCIUM 9.0 8.8 - 10.2 mg/dL 06/10/2024 11:54 AM [facility] BUN 10 8 - 23 mg/dL 06/10/2024 11:54 AM [facility] CREATININE 0.56(L) 0.67 - 1.17 mg/dL 06/10/2024 11:54 AM [facility] GLUCOSE 106(H) 74 - 99 mg/dL 06/10/2024 11:54 AM [facility] GFR >60 >=60 mL/min/1. 73 sq meter 06/10/2024 11:54 AM [facility] Comment:eGFR calculated with 2020 CKD-EPI equation. Vegetarian diet, extremely high or low muscle mass, and may affect results. Cystatin C with Glomerular Filtration Rate is a suitable alternative for these patients. ANION GAP 10 9 - 20 mmol/L 06/10/2024 11:54 AM [facility] Blood Venipuncture / Unknown 06/10/2024 10:08 AM SOLE SKIVER 06/10/2024 11:16 AM SOLE SKIVER us Oswaldo Warner MD CHEMISTRY ORDERABLES Final R esult [facility] CLIA # [id number] [address] [place] [address] * INSERT PICC LINE (06/08/2024 3:10 PM SOLE SKIVER) Narrative Dalia Deluna RN - 06/08/2024 3:10 PM SOLE SKIVER Dalia Deluna RN 06/08/2024 3:11 PM VASCULAR ACCESS NOTE PICC PLACEMENT PATIENT NAME: Vasyl Reis DATE OF : 1960 CSN: [id number] DATE: 06/08/2024 Room: [address] [place] [address] Admit Date: 06/04/2024 Hospital day: LOS: 4 days LINE STATUS: PICC tip location in the SVC confirmed by Sherlock 3CG technology. PICC okay to use. Adult PICC Line 06/08/24 1450 Right: basilic vein 4 Fr 42 (Active) 06/08/24 1450 basilic vein Earliest Known Present: 06/08/24 Present on Admission: No Orientation: Right: Size: 4 Fr PICC Length (cm): 42 PICC Line Lot #: [id number] PICC Line Drilling Machine Runner: Number of Insertion Attempts: 1 Insertion: Patient Tolerance: tolerated well;appears comfortable Insertion: Pain Prevention: Power Injectable Compatable: Yes Earliest Known Removed: Removal Indication: Removal Interventions: *Procedural Assist *Insertion of PICC line, w/o subcut port 06/08/24 1450 Inserted Catheter Length (cm) 42 06/08/24 1450 PICC Length Prior to Insertion (cm) 42 cm 06/08/24 1450 PICC Line (WDL) WDL 06/08/24 1450 Extremity Circumference, Mid-Upper (cm) 26 06/08/24 1450 PICC Exposed Catheter Length (cm) 0 cm 06/08/24 1450 Patency flushes w/o difficulty;positive blood return 06/08/24 1450 Line Interventions system flushed;IV capped 06/08/24 1450 Dressing Type/Securement antimicrobial patch/disc;transparent dressing;secured w/ sterile tape strips;catheter securement device utilized 06/08/24 1450 Dressing Changed Date 06/08/24 06/08/24 1450 Tubing Changed Date 06/08/24 06/08/24 1450 Needleless Connector Changed Date 06/08/24 06/08/24 1450 Line Criteria FDC antibiotics 06/08/24 1450 Number of days: 0 PICC PROCEDURE Patient Identified with 2 identifiers Procedure explained and informed consent obtained Ultrasound assessment was performed to assess adequacy of vascular anatomy Adequate vessel was located Time out completed Insertion site cleansed for 30 seconds with Chlora-prep x2. Allowed to dry before initial needle stick. Max barrier process initiated 3ml of 1% lidocaine injected intradermally for comfort. Ultrasound utilized to guide venous access needle into vessel A guide wire was advanced through needle, needle then removed and dilator/sheath was advanced over guide wire. Guide wire removed Catheter was threaded to predetermined measurement Sherlock 3cg tip location system was used throughout catheter advancement procedure Inner 3cg wire was removed. Line secured with statlock. Blood return obtained on all lumens Each lumen of catheter flushed with 10ml of Normal Saline Secure port adhesive used Yes 1 attempts Neutral pressure cap(s) applied Antimicrobial cap(s) applied to neutral pressure cap Transparent antimicrobial dressing applied and date, time, and initial on dressing . Patient tolerated procedure well. Pre-Count supplies: Hypodermic needles: 1 Angiocath: 2 Scalpel: 1 Guidewire: 1 (intact: yes) Introducer wire: 1 (intact: yes) Post-Count supplies: Hypodermic needles: 1 Angiocath: 2 Scalpel: 1 Guidewire: 1 (intact: yes) Introducer wire: 1 (intact: yes) All supplies & equipment was accounted for & disposed of properly. Central line insertion checklist completed through [employer] flowsheet Catheter Associated Bloodstream Infection FAQs sheet was utilized & left at bedside. Dalia Deluna RN CARE AND MAINTENANCE NO BLOOD PRESSURES on arm with PICC line. Can remain in place for terminologist or short term vascular access as long as catheter insertion site & extremity remain asymptomatic Maximum infusion rate of 5ml/sec at 300psi for power injection of contrast media. Contrast Media should be warmed Power injection should only occur through lumens labeled power injectable Flush all lumens with 10ml normal saline after power injection Securely apply neutral OR positive pressure cap on lumens that are not in use Flush catheter with 10ml normal saline: 1. before blood draw 2. after every use 3. Between incompatible medications 4. and EVERY 12 HOURS (for all in-patients) Flush Catheter with 20ml of normal saline: 1. Prior to blood draw if infusing TPN 2. After all blood draw 3. After chemotherapy administration 4. After infusing TPN Flush catheter once weekly when not in use (in outpatient setting) Flush catheter using pulsating push-pause technique Always use 10ml or larger syringe Change dressing every 7 days using sterile technique Change dressing PRN using sterile technique when integrity of dressing is compromised, moisture, drainage, or blood is present, or for further assessment is needed. us Erik Ridley MD IV THERAPY ORDERABLES Final Resu lt * HIV DETECTION W/REFLX CONFIRMATION (06/08/2024 4:59 AM SOLE SKIVER) Pathologist [facility] HIV-1 AND 2 ABS AND HIV-1 AG Non-reacti ve Non-React corbin 06/08/2024 6:49 AM SOLE SKIVER [facility] Blood Venipuncture / Unknown 06/08/2024 4:59 AM SOLE SKIVER 06/08/2024 5:52 AM SOLE SKIVER Erik Ridley MD CHEMISTRY ORDERABLES Final Resul t Performing Organization Address [facility] de Phone Number [facility] CLIA # [id number] [address] [address] * HEMOGLOBIN A1C (06/07/2024 3:53 AM SOLE SKIVER) [facility] [address] HEMOGLOBIN A1C 4.8 <=5.6 % 06/08/2024 11:08 AM SOLE SKIVER [facility] EST. AVG GLUCOSE, A1C 91 mg/dL 06/08/2024 11:08 AM SOLE SKIVER [facility] Blood Venipuncture / Unknown 06/07/2024 3:53 AM SOLE SKIVER 06/07/2024 3:58 AM SOLE SKIVER Narrative [facility] - 06/08/2024 11:08 AM SOLE SKIVER HGB A1C INTERPRETATION NORMAL: <5.7% PRE-DIABETES: 5.7 - 6.4% DIABETES: 6.5% OR GREATER Erik Ridley MD CHEMISTRY ORDERABLES Final Resul t Performing Organization Address [facility] de Phone Number [facility] CLIA # [id number] [address] [address] * (ABNORMAL) POC GLUCOSE (06/05/2024 2:08 PM SOLE SKIVER) [facility] [address] GLUCOSE POC 117(H) 74 - 99 mg/dL 06/05/2024 2:08 PM SOLE SKIVER [facility] SPECIMEN SOURCE, GLUCOSE POC Capillary 06/05/2024 2:08 PM SOLE SKIVER [facility] Blood, whole 06/05/2024 2:08 PM SOLE SKIVER 06/05/2024 2:15 PM SOLE SKIVER Oswaldo Warner MD POINT OF CARE TESTING Final Result [facility] CLIA # [id number] [address] [place] [address] [place] [address] * PATHOLOGY (06/05/2024 1:51 PM SOLE SKIVER) CASE REPORT Surgical Pathology Report Case: [id number] Authorizing Provider: Pritesh Kan DDS Collected: 06/05/2024 01:51 PM Ordering Location: [facility] Received: 06/06/2024 08:03 AM Operating Room Pathologist: Luz Elena Chavez DO Specimen: Soft Tissue, left face abscess 11:45 AM SOLE SKIVER [facility] FINAL DIAGNOSIS A. Skin and soft tissue, left face abscess, incision and drainage - Benign skin and soft tissue with ulceration, necrosis and abscess formation Luz Elena Chavez DO [id number] 11:45 AM SOLE SKIVER [facility] at [address] SOLE SKIVER GROSS DESCRIPTION A. Received in a container of formalin labeled Smiley -left face abscess is an unoriented irregular piece of guerra skin measuring 1.9 x 1.1 x 0.4 cm. The margin is inked blue. The skin surface contains a guerra-brown to guerra-yellow centrally ulcerated diffusely necrotic lesion measuring 1.4 x 0.6 cm, which is 0.1 cm from the nearest margin. The specimen is serially sectioned and entirely submitted in A1. Mary Koo 11:45 AM SOLE SKIVER [facility] OPERATIVE PROCEDURE 1: ABSCESS INCISION AND DRAINAGE 2: TEETH MULTIPLE EXTRACTION 3: ORAL OR ANTRAL FISTULECTOMY 11:45 AM [facility] CLINICAL INFORMATION Left Face Abscess 11:45 AM [facility] COMMENT The [employer] voice-activated dictation system may have been used in the creation of this report. Inherent to this system is the possibility of errors in syntax, grammar, punctuation, or other areas that could impact interpretation. If there are interpretive questions about the report, please contact the performing pathologist. Unless gross only is specified in the diagnosis, the microscopic examination substantiates the above cited diagnosis. The performance characteristics of all immunohistochemical stains cited in this report (if any) were determined by the Diagnostic Immunohistochemistry Laboratory of [facility] in compliance with CLIA'88 regulations. Some of these tests rely on the use of analyte specific reagents and are subject to specific labeling requirements by the FDA. All controls show appropriate reactivity. This testing was developed by the Diagnostic Immunohistochemistry Laboratory of [facility]. It has not been cleared or approved by the FDA. The FDA has determined that such clearance or approval is not necessary. 11:45 AM [facility] Tissue (Soft Tissue) Collection / Unknown 06/05/2024 1:51 PM SOLE SKIVER 06/06/2024 8:03 AM SOLE SKIVER Comment:Left Face Abscess [id number] OR 4 Pritehs Kan DDJimena PATHOLOGY/CYTOLOGY ORDERABLES Final Result [facility] CLIA # [id number] [address] [place] [address] * AFB CULTURE WITH STAIN (06/05/2024 1:17 PM SOLE SKIVER) CULTURE No acid fast bacilli isolated. 07/18/2024 9:06 AM T [facility] AFB STAIN No acid fast bacilli observed 07/18/2024 9:06 AM [facility] Abscess (Face) Collection / Unknown 06/05/2024 1:17 PM SOLE SKIVER 06/05/2024 1:31 PM SOLE SKIVER Comment:Left Face Abscess OR 4 [id number] Narrative [facility] - 07/18/2024 9:06 AM CDT Culture is held for a minimum of 6 weeks. Pritesh Kan DDS MICROBIOLOGY - GENERAL ORDERA BLES Final Result Performing Organization Address [facility] Co de Phone Number [facility] CLIA # [id number] [address] [place] [address] * (ABNORMAL) ANAEROBIC/AEROBIC CULTURE W GRAM STAIN (06/05/2024 1:17 PM SOLE SKIVER) CULTURE ACTINOMYCES(A) 06/11/2024 11:34 AM SOLE SKIVER [facility] Comment:Susceptibility not r outinely performed CULTURE ANAEROBIC GRAM-NEGATIVE, STRAIGHT, CURVED, AND HELICAL RODS(A) 06/11/2024 11:34 AM SOLE SKIVER [facility] Comment: Culture results delayed due to: fastidious organisms(s) Other - Unable to further identify Anaerobe therapy recommendation: metronidazole. Alternatively: ampicillin/sulbactam or clindamycin. Susceptibility not routinely performed GRAM STAIN 4+ (Heavy) Gram positive cocci 06/11/2024 11:34 AM SOLE SKIVER [facility] GRAM STAIN 4+ (Heavy) Gram positive rods 06/11/2024 11:34 AM [facility] GRAM STAIN 4+ (Heavy) Polymorphonuclear WBC 06/11/2024 11:34 AM [facility] Abscess (Face) Collection / Unknown 06/05/2024 1:17 PM SOLE SKIVER 06/05/2024 1:31 PM SOLE SKIVER Comment:Left Face Abscess OR 4 [id number] Pritesh Kan DD MICROBIOLOGY - GENERAL ORDERA BLES Edited Result - Final Performing Organization Address [facility] [facility]/ZIP Co de Phone Number [facility] CLIA # [id number] [address] [place] [address] * FUNGUS CULTURE, OTHER (06/05/2024 1:17 PM SOLE SKIVER) CULTURE No fungus isolated. 07/04/2024 8:06 AM CDT [facility] Array Storm [facility] Abscess (Face) Collection / Unknown 06/05/2024 1:17 PM SOLE SKIVER 06/05/2024 1:31 PM SOLE SKIVER Comment:Left Face Abscess OR 4 [id number] Narrative [facility] - 07/04/2024 8:06 AM CDT Culture is held for a minimum of 4 weeks. us Pritesh Kan DDS MICROBIOLOGY - GENERAL ORDERA BLES Final Result [facility] CLIA # [id number] [address] [address] * PA ANES INSERT ENDOTRACHEAL AIRWAY (06/05/2024 12:46 PM SOLE SKIVER) Narrative Art Fallon CRNA - 06/05/2024 12:46 PM SOLE SKIVER Art Fallon CRNA 06/05/2024 12:56 PM Airway Date/Time: 06/05/2024 12:46 PM Location: OR Plan: routine intubation Patient Identity Confirmed by: Verbally with patient and armband Airway: not difficult Staffing Performed: LITHOGRAPHIC PROOFER APPRENTICE/CAA Authorized by: Ye Irene MD Performed by: Art Fallon CRNA Indications and Patient Condition: Indications for Airway Management: Anesthesia Sedation Level: general anesthesia Preoxygenated: yes Patient Position: Sniffing Mask Difficulty Assessment: 1 - vent by mask Plan to extubate at end of case: Yes Final Airway Details: Final Airway Type: Endotracheal airway ETT Cuffed: Yes Cuff Volume (mL): 10 Technique Used for Successful ETT Placement: Video laryngoscopy Devices/Methods Used in Placement: Intubating stylet Reason for advanced technique: other (neck abscess) Blade Size: 4 Insertion Site: Oral ETT Size (mm): 7.5 Video Laryngoscopy Devices: Sam Measured from: Teeth ETT to Teeth (cm): 22 Tube secured with: Tape Placement Verified by: auscultation, end tidal CO2 and chest rise Cormack-Lehane Classification: Grade I - full view of glottis Number of Attempts at Approach: 1 Additional Procedure Information: atraumatic Ye Irene MD PROCEDURE/MINOR SURGICAL ORDERA BLES Final Result * LACTIC ACID (06/05/2024 6:07 AM SOLE SKIVER) Only the most recent of2 resultswithin the time period is included. Pathologist [facility] LACTIC ACID 1.4 <=2.0 mmol/L 06/05/2024 6:37 AM SOLE SKIVER [facility] Blood Venipuncture / Unknown 06/05/2024 6:07 AM SOLE SKIVER 06/05/2024 6:11 AM SOLE SKIVER Frank Yoo MD CHEMISTRY ORDERABLES Final Resul t Performing Organization Address [facility]/ZIP Co de Phone Number [facility] CLIA # [id number] [address] [place], [place] [address] * BLOOD CULTURE (06/04/2024 5:06 PM SOLE SKIVER) Only the most recent of2 resultswithin the time period is included. [facility] [address] BLOOD CULTURE No growth 06/09/2024 6:56 PM SOLE SKIVER [facility] Blood (Peripheral) Venipuncture / Unknown 06/04/2024 5:06 PM SOLE SKIVER 06/04/2024 5:10 PM SOLE SKIVER Narrative [facility] - 06/09/2024 6:56 PM SOLE SKIVER Specimen processed with suboptimal blood volume collected. Frank Yoo MD MICROBIOLOGY - GENERAL ORDERABLE S Final Result Performing Organization Address City/[facility]/ZIP Co de Phone Number [facility] CLIA # [id number] [address] [place], [place] [address] * (ABNORMAL) SEDIMENTATION RATE (06/04/2024 5:05 PM SOLE SKIVER) ESR (SEDIMENTATION RATE) 41(H) 0 - 10 mm/Hr 06/04/2024 5:49 PM SOLE SKIVER [facility] Blood Venipuncture / Unknown 06/04/2024 5:05 PM SOLE SKIVER 06/04/2024 5:10 PM SOLE SKIVER Frank Yoo MD HEMATOLOGY ORDERABLES Final Resu lt Performing Organization Address [facility]/ZIP Co de Phone Number [facility] CLIA # [id number] [address] [address] [place] [address] * (ABNORMAL) C-REACTIVE PROTEIN (06/04/2024 5:05 PM SOLE SKIVER) Pathologist [facility] CRP 81.7(H) 0.0 - 5.0 mg/L 06/04/2024 5:57 PM SOLE SKIVER [facility] Blood Venipuncture / Unknown 06/04/2024 5:05 PM SOLE SKIVER 06/04/2024 5:20 PM SOLE SKIVER Frank Yoo MD CHEMISTRY ORDERABLES Final Resul t Performing Organization Address [facility] Co de Phone Number [facility] CLIA # [id number] [address] [address] * (ABNORMAL) COMPREHENSIVE METABOLIC PANEL (06/04/2024 5:05 PM SOLE SKIVER) Only the most recent of2 resultswithin the time period is included. Pathologist [facility] SODIUM 136 136 - 145 mmol/L 06/04/2024 5:57 PM [facility] POTASSIUM 5.7(H) 3.5 - 5.1 mmol/L 06/04/2024 5:57 PM [facility] CHLORIDE 103 98 - 107 mmol/L 06/04/2024 5:57 PM [facility] CO2 21(L) 22 - 29 mmol/L 06/04/2024 5:57 PM [facility] CALCIUM 7.9(L) 8.8 - 10.2 mg/dL 06/04/2024 5:57 PM [facility] BUN 15 8 - 23 mg/dL 06/04/2024 5:57 PM [facility] CREATININE 0.57(L) 0.67 - 1.17 mg/dL 06/04/2024 5:57 PM [facility] GLUCOSE 106(H) 74 - 99 mg/dL 06/04/2024 5:57 PM [facility] TOTAL PROTEIN 6.6 6.4 - 8.3 g/dL 06/04/2024 5:57 PM [facility] ALBUMIN 3.2(L) 3.5 - 5.2 g/dL 06/04/2024 5:57 PM [facility] BILIRUBIN TOTAL 0.5 0.2 - 1.0 mg/dL 06/04/2024 5:57 PM [facility] ALKALINE PHOSPHATASE 68 40 - 129 U/L 06/04/2024 5:57 PM [facility] AST 19 10 - 50 U/L 06/04/2024 5:57 PM [facility] ALT 11 <=50 U/L 06/04/2024 5:57 PM [facility] GFR >60 >=60 mL/min/1. 73 sq meter 06/04/2024 5:57 PM [facility] Comment:eGFR calculated with 2020 CKD-EPI equation. Vegetarian diet, extremely high or low muscle mass, and may affect results. Cystatin C with Glomerular Filtration Rate is a suitable alternative for these patients. ANION GAP 12 9 - 20 mmol/L 06/04/2024 5:57 PM [facility] Blood Venipuncture / Unknown 06/04/2024 5:05 PM SOLE SKIVER 06/04/2024 5:20 PM SOLE SKIVER us Frank Yoo MD CHEMISTRY ORDERABLES Final Resul t [id number] [address] [facility] [place] [address] * XR CHEST PA OR AP 1 VW (06/04/2024 4:17 PM SOLE SKIVER) Anatomical Region Laterality Modality Chest Computed Radiogr aphy 06/04/2024 4:17 PM SOLE SKIVER Impressions 06/04/2024 4:29 PM SOLE SKIVER IMPRESSION: See below. Exam: XR CHEST PA OR AP 1 VW Date/Time of Exam: 06/04/2024 4:17 PM Reason For Exam: Shortness of Breath SOB. Diagnosis: See Reason for Exam. Prior: None Findings: Cardiac silhouette is within normal limits. No acute focal consolidation, pleural effusion or pneumothorax. No acute osseous abnormality. Narrative Procedure Note Pritesh Vincent, DO - 06/04/2024 IMPRESSION: See below. Exam: XR CHEST PA OR AP 1 VW Date/Time of Exam: 06/04/2024 4:17 PM Reason For Exam: Shortness of Breath SOB. Diagnosis: See Reason for Exam. Prior: None Findings: Cardiac silhouette is within normal limits. No acute focal consolidation, pleural effusion or pneumothorax. No acute osseous abnormality. Frank Yoo MD DIAGNOSTIC IMAGING ORDERABLES Fi nal Result from Last 3 Months Insurance MEDICAID [place] Advance Directives For more information, please contact: [phone] * Full Code (Latest Code Status on File) Date Activated Date Inactivated Comments 06/04/2024 3:55 PM 06/10/2024 6:05 PM
--- OUTSIDE RECORDS SUMMARY | 2024-08-23 11:05 | XMS_ITS | Encounter Summary ---
Author Organization [employer] Address [address] [place] [address] Care Team Providers Care Biological Technical Officer Name Role Phone Unavailable Primary Care Provider Unavailabl e Encounter Details Date Type Department Care Team (Late st Contact Info) Description 08/16/2024 External Device Data [place] ABSTRACTION Provider, Abstract NO ADDRESS ON FILE Social History Tobacco Use Types Packs/Day Years Used Date Smoking Tobacco: Every Day Cigarettes 1 50 Feeling Safe Answer Date Recorded Are you [...] on file Legal Sex Male 1:32 AM [employer] Gender Identity Not on file Sexual Orientation Not on file documented as of this encounter Plan of Treatment Not on file documented as of this encounter Visit Diagnoses Not on filedocumented in this encounter
--- OUTSIDE RECORDS SUMMARY | 2024-08-23 11:05 | XMS_ITS | Patient Health Record ---
Author Organization [facility] Address [address] [address] Care Team Providers Care Rag Cutting Machine Operator Name Role Phone Rico Booker Primary Care Provider [phone] Allergies No Known Allergies Results Component Value Reference Range Notes Chest PA/Lat-23599 Reviewed date:12/28/2023 06:11:34 AM Interpretation: Performing Lab: Notes/Report: See Below For Report Chest PA/Lat Read See Below For Report Reason For Referral No Information Medications Medication SIG (Take, Route, Frequency, Duration) Notes Start Date End Date Status Albuterol Sulfate 108 (90 Base) MCG/ACT 1 puff as needed Inhalation every 4 hrs for 90 days Active DULoxetine HCl 60 mg TAKE ONE CAPSULE BY MOUTH DAILY for 90 Active Pregabalin 300 MG 1 capsule Orally Twi ce a day for 30 days 07/23/2023 Not-Taking Lyrica 75 MG 1 capsule Orally Twi ce a day for 30 days 09/24/2023 Not-Taking Metoprolol Tartrate 25 MG 1 tablet with food Orally Twice a day for 90 days Active Sennosides-Docusate Sodium 8.6-50 MG 1 tablet as needed Orally Twice a day Not-Taking Vitamin B 12 500 MCG 2 tablet Orally Onc e a day for 90 days Active Cefpodoxime Proxetil 200 MG 1 tablet with food Orally Twice a day Not-Taking traZODone HCl 50 mg TAKE ONE TABLET BY MOUTH AT BEDTIME for 30 Active Gabapentin 300 mg TAKE ONE CAPSULE BY MOUTH THREE TIMES DAILY for 30 Active Symbicort 160-4.5 MCG/ACT inhale 2 puffs into lungs TWICE DAILY for 30 Active Trelegy Ellipta 100-62.5-25 MCG/INH 1 puff Inhalation Once a day for 90 days 03/04/2025 Active Thiamine 50 MG 2 capsules Orally On ce a day Not-Taking Magnesium Oxide -Mg Supplement 400 (240 Mg) MG TAKE ONE TABLET BY MOUTH DAILY NEEDED for 90 Active Potassium Chloride ER 10 mEq TAKE ONE TABLET BY MOUTH DAILY NEEDED ONLY when you take lasix for 18 Active Spiriva HandiHaler 18 mcg inhale the contents of 1 capsule via handihaler every day for 30 Active QUEtiapine Fumarate ER 50 MG 1 tablet in the evening Orally Once a day for 90 days Active Advair Diskus 500-50 MCG/ACT 1 puff Inhalation Twice a day for 30 days 05/25/2024 Active Folic Acid 1 mg TAKE ONE TABLET BY MOUTH DAILY for 90 Active Furosemide 20 mg TAKE ONE TABLET BY MOUTH DAILY NEEDED FOR weight gain; if you notice weight gain more THAN 3 pounds in a day OR not able TO lay flat for 30 Active Social History Tobacco Use: Social History Observation Description Date Details (start date - stop date) Current Smoker NA - NA Alcohol Screen (Audit-C) Question Answer Notes Did you have a drink contain ing alcohol in the past year? Yes How often did you have a dri nk containing alcohol in the past year? 4 or more times a week (4 points) Points 4 Interpretation Positive PHQ-9 Question Answer Notes Little interest or pleasure in doing things Not at all Feeling down, depressed, or hopeless Several day s Trouble falling or staying asleep, or sleeping t oo much Nearly every day Feeling tired or having little energy Several da ys Poor appetite or overeating Several days Feeling bad about yourself, or that you are a failure, or have let yourself or your family down Not at all Trouble concentrating on thi ngs, such as reading the newspaper or watching television Not at all Moving or speaking so slowly that other people could have noticed. Or the opposite ? being so fidgety or restless that you have been moving around a lot more than usual Not at all Thoughts that you would be b erika off , or of hurting yourself in some way Not at all Total Score 6 Interpretation Mild Depression Tobacco Control (Standard) Question Answer Notes Tobacco use: Current smoker How often do you smoke cigarettes? Every day How many cigarettes a day do you smoke? 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 Problem 68241351 Essential (prima ry) hypertension (I10) Active confirmed Problem 77982499 Visual hallucinations (R44.1) Active confirmed Problem 306281938 Anemia, unspecif ied type (D64.9) Active confirmed Problem 85685478 Chest pain, unspecified type (R07.9) Active confirmed Problem 51706442 Chronic bronchit is, unspecified chronic bronchitis type (J42) Active confirmed Problem 13636800 Claudication (I73.9) Active confirmed Problem 912598536 Tooth infection (K04.7) Active confirmed Problem 6668816 Gastritis withou t bleeding, unspecified chronicity, unspecified gastritis type (K29.70) Active confirmed Vital Signs Heart Rate 109 /min 06/15/2024 Temperature 98.8 degrees Fahrenheit 06/15/2024 Blood pressure diastolic 70 mm Hg 06/15/2024 Oximetry 86 % 06/15/2024 Height-cm 180.34 cm 06/28/2024 Weight-kg 58.15 kg 06/15/2024 Height 71 in 06/28/2024 Blood pressure systolic 130 mm Hg 06/15/2024 Weight 128.2 lbs 06/15/2024 BMI 17.88 kg/m2 06/15/2024 Encounters Encounter Location Date Provider Diagnosis [facility] [address] [place] [address] 09/24/2023 Rico Booker Alcoholic polyneuropathy G62.1 and Chronic bronchitis, unspecified chronic bronchitis type J42 [facility] [address] [place] [address] 01/15/2024 Rico Booker Alcoholic polyneuropathy G62.1 ; Essential (primary) hypertension I10 and Chronic bronchitis, unspecified chronic bronchitis type J42 [facility] [address] [place] [address] 02/16/2024 Rico Booker Chronic bronchitis, unspecified chronic bronchitis type J42 ; Essential (primary) hypertension I10 ; Alcoholic polyneuropathy G62.1 and Depression screen Z13.31 [facility] [address] [place] [address] 02/17/2024 Rico Booker Chronic bronchitis, unspecified chronic bronchitis type J42 [facility] [address] [place] [address] 02/29/2024 Rico Booker Infected tooth K04.7 [facility] [address] [place] [address] 06/15/2024 Christopheva Booker Tooth infection K04. 7 and Depression screen Z13.31 [facility] [address] [place] [address] 06/28/2024 Rico Booker Tooth infection K04. 7 ; Chemotherapy follow-up examination Z09 ; Essential (primary) hypertension I10 and Chronic bronchitis, unspecified chronic bronchitis type J42 [facility] [address] [place] [address] 09/09/[address] [facility] [address] [place] [address] 09/17[facility]20[facility] [address] [place] [address] 11/17/2023 [facility] [address] [address] 11/19/2023 Rico [facility] [address] [place] [address] 11/20/2023 Rico Booker [facility] [address] [place] [address] 03/09/[address] [facility] [address] [place] [address] 05/25/2024 [facility] [address] [place] [address] 06/24/2024 [facility] [address] [place] [address] 06/24/2024 Rico Booker Assessments Encounter Date Diagnosis (ICD Code) Assessment Notes Treatment Notes Treatment Clinical Notes Section Notes 09/24/2023 Alcoholic polyneuropathy (ICD-10 - G62.1) 09/24/2023 Chronic bronchitis, unspecified chronic bronchitis type (ICD-10 - J42) 01/15/2024 Alcoholic polyneuropathy (ICD-10 - G62.1) 02/16/2024 Chronic bronchitis, unspecified chronic bronchitis type (ICD-10 - J42) I will give him some trelegy samples. His sats are 88 percent on RA. 02/17/2024 Chronic bronchitis, unspecified chronic bronchitis type (ICD-10 - J42) Pt came in for a O2 evaluation. We gave him a walk test where is sats were recorded at 88%. after 10 mins of rest his O2 was recorded at 96%. He is not a candidate for portable O2 at this time. He needs to use his inhaler that was given at the previous appt and we will recheck in a month. 02/29/2024 Infected tooth (ICD-10 - K04.7) 06/15/2024 Tooth infection (ICD-10 - K04.7) 06/28/2024 Chemotherapy follow-up examination (ICD-10 - Z09) 06/28/2024 Tooth infection (ICD-10 - K04.7) I have strongly encouraged him to follow up with the dentist. 06/28/2024 Essential (primary) hypertension (ICD-10 - I10) 06/15/2024 Depression screen (ICD-10 - Z13.31) 02/16/2024 Essential (primary) hypertension (ICD-10 - I10) 01/15/2024 Essential (primary) hypertension (ICD-10 - I10) 01/15/2024 Chronic bronchitis, unspecified chronic bronchitis type (ICD-10 - J42) 02/16/2024 Alcoholic polyneuropathy (ICD-10 - G62.1) 06/28/2024 Chronic bronchitis, unspecified chronic bronchitis type (ICD-10 - J42) 02/16/2024 Depression screen (ICD-10 - Z13.31) Plan Of Treatment No Information Insurance Providers Payer Name Payer Address Payer Phone Subscriber Number Group Number Insured Name Patient Relationship to Insured Coverage Start Date Coverage End Date [place] [address] [place] [address] [phone] [id number] Vasyl Reis Self - patient is the insured Medications Administered Medication Instructions Date of Administration Dosage Notes dexAMETHasone 01/29/2023 10 mg dexAMETHasone 09/24/2023 10 mg dexAMETHasone 01/15/2024 10 mg Rocephin 01/29/2023 1 g Rocephin 09/24/2023 1 g Rocephin 01/15/2024 1 g Rocephin 02/29/2024 1 g Medical (General) History Medical History History ICD Code Community acquired pneumonia of left nguyen g, unspecified part of lung J18.9 Alcohol-induced 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
--- OUTSIDE RECORDS SUMMARY | 2024-08-23 11:05 | XMS_ITS | Patient Health Record ---
Author Organization [facility] Address [address] [place], [place] [address] Care Team Providers Care Travel Agency Manager Name Role Phone Yvon SMITH, Trevor Unavailable [phone] Rico Booker MD Unavailable Unavaila ble Allergies Allergen (clinical drug ingredient) Drug/Non Drug Allergy documented on EMR Reaction Allergy Type Onset Date Status penicillin V penicillin V potassium Unknown Drug Allergy Active Reason For Referral No Information Problems Problem Type SNOMED Code ICD Code Onset Dates Problem Status W/U Status Risk Notes Problem Alcoholic polyneuropathy (1552477) 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 Plan Of Treatment No Information Insurance Providers Payer Name Payer Address Payer Phone Subscriber Number Group Number Insured Name Patient Relationship to Insured Coverage Start Date Coverage End Date [place] [employer] [address] [place] [address] [phone] [id number] Vasyl Reis Self - patient is the insured Medical (General) History Medical History History ICD Code Alcoholic polyneuropathy Respiratory failure with hypoxia Gastritis Alcohol abuse with intoxication Alcohol dependence with withdrawal delir ium Anemia Anxiety and depression disorders Chronic pain syndrome Atherosclerosis of douglas arteries of th e extremities COPD Hypertension Mood disorder Wernicke's encephalopathy Visual hallucinations Chest pains
[2024-08-23] MEDS: HYDROmorphone 0.5 MG/0.5 ML INJ IVP ×2 (11:14→20:19)
--- NOTE | 2024-08-23 11:20 | PC.NURSE ---
Pt aggitated. Attempting to get out of bed. He winces when his right arm is touched. He says his back hurts. Dr Guy notified and asked for pain medicatin order. Dilaudi 0.5 mg ordered and admin. Pt started getting drowsy. Repositioned in bed. He allowed sling to be palced on right arm and has left it on. He continues to refuse to wear back ( TLSO) brace.
[2024-08-23 12:15] LABS: Osmolality Serum 281 mOsm/kg (278-305)
--- NOTE | 2024-08-23 13:41 | P.PN_ITS ---
Subjective 2 Subjective: Seen this morning. Overnight patient wandered off and eloped from his room. He was found beside Maintenance Helper at which time he had also sustained a fall. CT head negative. Patient was found and brought back to his room. Magnesium 1.6 this morning. IV magnesium ordered. He was transferred to ICU for Precedex drip. At this time on Precedex. Patient is taken off his TLSO brace on the right shoulder sling. Vitals/I&O/Wt Last Vital Signs Temp 97.8 F 08/23/24 08:00 Pulse 64 08/23/24 12:30 Resp 17 08/23/24 12:30 BP 149/96 08/23/24 12:30 Pulse Ox 100 08/23/24 12:30 O2 Del Method Nasal Cannula 08/23/24 12:00 O2 Flow Rate 2 08/23/24 12:00 08/22/24 08/23/24 08/23/24 22:59 06:59 14:59 Intake Total 720 / 820 240.32 / 240.32 Output Total 550 / 550 450 / 1000 600 / 600 Balance 170 / 270 -450 / -180 -359.68 / -359.68 Weight last 48 hrs Weight 54.885 kg Weight 55 kg Physical Exam 2 Narrative: General: Sitting up in bed on 2 L nasal cannula.TLSO brace and right shoulder swelling at the bedside. Patient is currently not wearing it. Cardiovascular: RRR. No gallops. No murmurs. Lungs: Breath sound diminished in bilateral bases. No wheezing or rales., Abdomen: Normal bowel sounds, abdomen soft and nontender. Extremities: No cyanosis or clubbing. Musculoskeletal: No swollen or erythematous joints. Neurological: Unable to move right arm secondary to pain. Does have a known inferior scapular fracture. Data 08/23/24 06:23 08/23/24 06:23 A&P Assessment and plan (1) Hyponatremia: (2) Alcohol intoxication: (3) Tobacco use disorder: (4) COPD (chronic obstructive pulmonary disease): (5) Toxic metabolic encephalopathy: (6) Hypomagnesemia: (7) Alcohol use disorder, severe, dependence: (8) Acute alcoholic intoxication: Plan #Fall #Right scapular fracture #L2 compression fracture #Severe acute on chronic hypovolemic hyponatremia secondary to Beer Potomania, 127 #Alcohol abuse #Alcohol intoxication #Tobacco use disorder #Hypoxia #Acute on chronic hypoxic respiratory failure/COPD #History of depression/panic attacks ? Patient has a history of emphysema. Requiring nasal cannula at this time. ? Patient most likely hypoventilating secondary to scapular fracture pain. ? Continue DuoNeb every 6 hours as needed ? Patient recently completed prednisone, Rocephin, azithromycin. ? Chest x-ray does not show any consolidation. - Nicotine patch ordered ? Continue thiamine folic acid, metoprolol tartrate 25 twice daily, duloxetine, gabapentin ? Continue Pulmicort twice daily ? Check CBC ? Right scapular fracture. Discussed with orthopedic surgery. Will request CT right shoulder at this time for further evaluation ? L2 compression fracture. Place TLSO brace. - Placed on CIWA protocol - Sodium 127. Patient does have chronic hyponatremia secondary to alcohol use. He did get 2 L normal saline bolus in ER. I will hold off on further fluids at this time. Check urine sodium, serum, urine osmolality. ? Avoid correction more than 6-8 in 24-hour period. In the past patient has required hypertonic saline. DVT prophylaxis: SCDs for now Will place on heparin SQ twice daily once CBC has been reviewed. Check PT OT Case management referral for possible SNF placement 08/22/2024 Sodium improved to 135. Magnesium 1.6. Will replete 4 g today. TLSO brace in place Right shoulder sling ordered. PT OT Currently patient is unable to ambulate on his own. PT will continue to work with the patient. He is on 2 L nasal cannula. Patient does have a right inferior scapular fracture. It does not involve the joint. CT shoulder reviewed. Safe discharge planning. I had a lengthy discussion with the patient regarding potentially going to a rehab facility for a few weeks however he is not interested in that at this time. Consult Dr. Liz for L2 compression fracture. Will await further recommendations. 08/23/2024 Recommended patient to wear TLSO brace and right shoulder sling however he does not want to do that at this time. Continue Precedex drip. Patient is withdrawing from alcohol Continue CIWA protocol Once patient has completed the withdrawal pleurodesis we will plan to discharge home with scheduling outpatient surgery for L2 compression fracture. Consulted Dr. Liz. Appreciate recommendations. Patient is not a candidate for surgery at this time secondary to alcohol withdrawal. Replete magnesium Hyponatremia, chronic 131 today. Close to baseline. PDMP PDMP Reviewed: Not Reviewed Attestations 2 Medical Necessity Statement*: Plan to discharge home in next 24 to 48 hours. Once patient has improved from withdrawal standpoint. Diagnoses Hyponatremia E87.1 Alcohol intoxication F10.929 Tobacco use disorder F17.200 Chronic obstructive pulmonary disease, unspecified COPD type J44.9 Toxic metabolic encephalopathy G92.8 Hypomagnesemia E83.42 Alcohol use disorder, severe, dependence F10.20 Acute alcoholic intoxication F10.929 Complication of substance-induced condition: with unspecified complication
[2024-08-23] MEDS: magnesium sulfate premix 4 GM/100 ML PREMIX IV (14:33)
--- NOTE | 2024-08-23 19:33 | PC.NURSE ---
Shift summary; Pt is oriented to self, , year and president. This evening he stated he did not feel right, something is off. He required Ativan for CIWA this am. He was started on Precedex gtt, low rate of 0.3mcg/kg/hr. It helped some. What actually helped him most was getting Dilaudid this am for his pain. He does not report pain unless he is trying to move. he yelps and groans when his back or right arm is moved. He is unsteady on his feet, he shuffles , when he gets out of bed. Bed alarm set today for his safety. He has used the urinal several times this shift. Got up to BSC, no Bm noted. He has passed gas. He has ate at least half of each meal. Sinus r htyhm noted on m onitor. Pt is utilizing 2lpm/NC. VSS . he has been afebrile
[2024-08-23] MEDS: trazodone 50 mg Tablet PO (20:20)
[2024-08-24] VITALS (22 sets, daily range): BP systolic 75–156; BP diastolic 51–102; PULSE 59–78; RESP 10–22; TEMP 36.9–37.1; O2SAT 91–100
[2024-08-24 03:34] LABS: Basophils # 0.1 10^3/uL (0.0-0.1); Eosinophils # 0.3 10^3/uL (0.0-0.8); Eosinophils % 6.9 %; Hematocrit 35.9 % (37-53); Lymphocytes # 1.3 10^3/uL (0.8-4.8); Lymphocytes % 26.5 %; Mean Corpuscular HGB Conc 33.1 g/dL (30-55); Mean Corpuscular Hemoglobin 31.4 pg (27-33); Mean Corpuscular Volume 94.7 fl (82-101); Mean Platelet Volume 9.4 fL (7.4-10.4); Monocytes # 0.7 10^3/uL (0.2-0.9); Neutrophils # 2.54 10^3/uL (1.8-7.7); Neutrophils % 51.4 %; Nucleated Red Blood Cells % 0 %; Platelet Count 338 10^3/cmm (157-399); Red Blood Count 3.79 10^6/uL (3.85-5.65); Red Cell Distribution Width 14.2 % (12.1-15.1); White Blood Count 4.94 10^3/uL (3.29-11.43)
[2024-08-24 04:07] LABS: Alanine Aminotransferase 11 U/L (0-41); Albumin Level 3.5 g/dL (3.5-5.2); Alkaline Phosphatase 87 U/L (40-130); Anion Gap 17.4 (5-19); Aspartate Amino Transferase 17 U/L (0-40); Blood Urea Nitrogen 15 mg/dL (8-23); Calcium 8.8 mg/dL (8.5-10.5); Carbon Dioxide 26 mmol/L (22-29); Chloride 95 mmol/L (98-107); Creatinine Clr Calc Pharmacy 120.4421; Globulin 2.8 g/dL (1.3-4.6); Glucose 124 mg/dL (65-115); Magnesium 1.9 mg/dL (1.7-2.3); Osmolality Calculated 280 mOsm/kg (285-295); Potassium 4.4 mmol/L (3.5-5.1); Sodium 134 mmol/L (136-145); Total Bilirubin 0.2 mg/dL (0.15-1.2); Total Protein 6.3 g/dL (6.6-8.7)
[2024-08-24] MEDS: HYDROmorphone 0.5 MG/0.5 ML INJ IVP ×3 (08:06→19:47)
[2024-08-24] MEDS: metoprolol tartrate 25 mg Tablet PO ×2 (08:15→17:13)
[2024-08-24] MEDS: folic acid 1 mg Tablet PO (08:16)
[2024-08-24] MEDS: multivitamin therapeutic Tablet 1 TAB PO (08:16)
[2024-08-24] MEDS: heparin 5,000 unit/mL INJ 1 mL 5000 UNIT SUBCUT (08:16)
[2024-08-24] MEDS: thiamine 100 mg Tablet PO (08:16)
[2024-08-24] MEDS: nicotine 21 mg Patch 1 PATCH TRANSDERMA (08:16)
[2024-08-24] MEDS: duloxetine 60 mg Capsule PO (08:16)
[2024-08-24] MEDS: acetaminophen 325 mg Tablet 650 MG PO (11:25)
--- NOTE | 2024-08-24 13:42 | P.PN_ITS ---
Subjective 2 Subjective: Patient is on low-dose Precedex. Plan to wean off. Patient states he is interested in having back surgery and he cannot go home in this condition. I discussed with him regarding his emphysema/COPD. He states he is always feels short of breath which is his baseline. He states he knows he is high risk for any kind of procedure however he would like to go for surgery regardless. I told him I will discuss with the surgeon and we would have to assess whether he is a good candidate for surgical intervention. He is comfortable at this time. Vitals/I&O/Wt Last Vital Signs Temp 97.8 F 08/23/24 08:00 Pulse 77 08/24/24 10:49 Resp 18 08/24/24 10:49 BP 95/60 08/24/24 09:00 Pulse Ox 99 08/24/24 10:49 O2 Del Method Nasal Cannula 08/24/24 10:49 O2 Flow Rate 2 08/24/24 10:49 08/23/24 08/24/24 08/24/24 22:59 06:59 14:59 Intake Total 1020 / 1669.362 480 / 2149.362 480 / 480 Output Total 650 / 1450 450 / 1900 Balance 370 / 219.362 30 / 249.362 480 / 480 Weight last 48 hrs Weight 55.5 kg Weight 54.885 kg Weight 55 kg Physical Exam 2 Narrative: General: Sitting up in bed on 2 L nasal cannula.TLSO brace and right shoulder sling in place. Cardiovascular: RRR. No gallops. No murmurs. Lungs: Breath sound diminished in bilateral bases. No wheezing or rales., Abdomen: Normal bowel sounds, abdomen soft and nontender. Extremities: No cyanosis or clubbing. Musculoskeletal: No swollen or erythematous joints. Neurological: Unable to move right arm secondary to pain. Does have a known inferior scapular fracture. Data 08/24/24 03:10 08/24/24 03:10 A&P Assessment and plan (1) Hyponatremia: (2) Alcohol intoxication: (3) Tobacco use disorder: (4) COPD (chronic obstructive pulmonary disease): (5) Toxic metabolic encephalopathy: (6) Hypomagnesemia: (7) Alcohol use disorder, severe, dependence: (8) Acute alcoholic intoxication: Plan #Fall #Right scapular fracture #L2 compression fracture #Severe acute on chronic hypovolemic hyponatremia secondary to Beer Potomania, 127 #Alcohol abuse #Alcohol intoxication #Tobacco use disorder #Hypoxia #Acute on chronic hypoxic respiratory failure/COPD #History of depression/panic attacks ? Patient has a history of emphysema. Requiring nasal cannula at this time. ? Patient most likely hypoventilating secondary to scapular fracture pain. ? Continue DuoNeb every 6 hours as needed ? Patient recently completed prednisone, Rocephin, azithromycin. ? Chest x-ray does not show any consolidation. - Nicotine patch ordered ? Continue thiamine folic acid, metoprolol tartrate 25 twice daily, duloxetine, gabapentin ? Continue Pulmicort twice daily ? Check CBC ? Right scapular fracture. Discussed with orthopedic surgery. Will request CT right shoulder at this time for further evaluation ? L2 compression fracture. Place TLSO brace. - Placed on CIWA protocol - Sodium 127. Patient does have chronic hyponatremia secondary to alcohol use. He did get 2 L normal saline bolus in ER. I will hold off on further fluids at this time. Check urine sodium, serum, urine osmolality. ? Avoid correction more than 6-8 in 24-hour period. In the past patient has required hypertonic saline. DVT prophylaxis: SCDs for now Will place on heparin SQ twice daily once CBC has been reviewed. Check PT OT Case management referral for possible SNF placement 08/22/2024 Sodium improved to 135. Magnesium 1.6. Will replete 4 g today. TLSO brace in place Right shoulder sling ordered. PT OT Currently patient is unable to ambulate on his own. PT will continue to work with the patient. He is on 2 L nasal cannula. Patient does have a right inferior scapular fracture. It does not involve the joint. CT shoulder reviewed. Safe discharge planning. I had a lengthy discussion with the patient regarding potentially going to a rehab facility for a few weeks however he is not interested in that at this time. Consult Dr. Liz for L2 compression fracture. Will await further recommendations. 08/23/2024 Recommended patient to wear TLSO brace and right shoulder sling however he does not want to do that at this time. Continue Precedex drip. Patient is withdrawing from alcohol Continue CIWA protocol Once patient has completed the withdrawal pleurodesis we will plan to discharge home with scheduling outpatient surgery for L2 compression fracture. Consulted Dr. Liz. Appreciate recommendations. Patient is not a candidate for surgery at this time secondary to alcohol withdrawal. Replete magnesium Hyponatremia, chronic 131 today. Close to baseline. 08/24/2024 All labs are at patient's baseline. Hyponatremia slight 134 sodium consistent with patient's baseline Does have a known inferior scapular fracture. Right shoulder sling in place TLSO brace in place Wean off Precedex stable. Patient no longer withdrawing from alcohol. Does have L2 compression fracture. Conservative management recommended by orthopedic surgery at this time. Patient does have peripheral neuropathy and takes gabapentin at home. He is a high fall risk secondary to his alcohol use. I have discussed with him on several occasions regarding considering going to a assisted facility or rehab facility however patient has declined that offer. I have strongly recommended him to consider that for a few weeks as he has high risk of morbidity mortality, high risk of readmission. Patient does understand all of the above however does not want to pursue that option. Safe discharge planning May transfer to floor today. PDMP PDMP Reviewed: Not Reviewed Attestations 2 Medical Necessity Statement*: Possible discharge today versus tomorrow. Awaiting safe discharge planning. Diagnoses Hyponatremia E87.1 Alcohol intoxication F10.929 Tobacco use disorder F17.200 Chronic obstructive pulmonary disease, unspecified COPD type J44.9 Toxic metabolic encephalopathy G92.8 Hypomagnesemia E83.42 Alcohol use disorder, severe, dependence F10.20 Acute alcoholic intoxication F10.929 Complication of substance-induced condition: with unspecified complication
[2024-08-24 13:55] LABS: Osmolality Urine 377 mOsm/kg (50-1200)
--- NOTE | 2024-08-24 15:42 | P.PN_ITS ---
Subjective 2 Subjective: Patient in ICU. At this point complaining of pain in his back and shoulder. Vitals/I&O/Wt Last Vital Signs Temp 98.8 F 08/24/24 13:00 Pulse 68 08/24/24 14:00 Resp 13 08/24/24 14:00 BP 140/70 08/24/24 13:00 Pulse Ox 96 08/24/24 14:00 O2 Del Method Nasal Cannula 08/24/24 10:49 O2 Flow Rate 2 08/24/24 10:49 08/24/24 08/24/24 08/24/24 06:59 14:59 22:59 Intake Total 480 / 2149.362 730 / 730 Output Total 450 / 1900 Balance 30 / 249.362 730 / 730 Weight last 48 hrs Weight 122 lb 5.705 oz Weight 121 lb Physical Exam 2 Narrative: Full exam patient sitting in chair hands are shaking likely from delirium tremors. This point patient is in his TLSO brace. Data 08/24/24 03:10 08/24/24 03:10 A&P Assessment and plan (1) Closed lumbar vertebral fracture: Patient is still complaining of pain in his lumbar spine. However with his recent issues with delirium tremens and his COPD history at this point will defer from doing any type of surgery. Will see him in outpatient basis and reevaluate at that time. Follow-up orthopedic clinic in 2 weeks. PDMP PDMP Reviewed: Not Reviewed Attestations 2 Medical Necessity Statement*: Per primary service Coding Level of Care Code Acute Code for [facility] Fwd Diagnoses Closed lumbar vertebral fracture S32.009A Fracture healing: with routine healing Fracture morphology: wedge compression Lumbar vertebra fracture level: L2
[2024-08-24] MEDS: LORazepam 2 mg Tablet PO (17:15)
[2024-08-24] MEDS: trazodone 50 mg Tablet PO (19:47)
[2024-08-25] VITALS: BP 106/64; PULSE 80; RESP 18; TEMP 37; O2SAT 94
[2024-08-25] MEDS: HYDROmorphone 0.5 MG/0.5 ML INJ IVP (02:39)
[2024-08-25] MEDS: acetaminophen 325 mg Tablet 650 MG PO (02:43)
[2024-08-25 04:00] VITALS: BP 113/61; PULSE 74; RESP 97; TEMP 36.7; O2SAT 98
[2024-08-25] MEDS: LORazepam 2 mg Tablet PO (04:53)
[2024-08-25] MEDS: pantoprazole DR 40 mg Tablet PO (04:54)
--- NOTE | 2024-08-25 06:35 | PM.DCS ---
Discharge Providers Date of Admission: 08/21/24 17:15 Date of Discharge: August 25, 2024 Attending Provider at Admission: Rere Guy MD Attending Provider at Discharge: Rere Guy MD Primary Care Provider: Laron Booker MD Diagnoses at Discharge Discharge Diagnosis (1) Closed lumbar vertebral fracture: Status: Acute Qualifiers: Fracture healing: with routine healing Fracture morphology: wedge compression Lumbar vertebra fracture level: L2 Reason for Visit Reason for Visit: right shoulder pain; ETOH Hospital Course Hospital Course Patient was admitted to the hospital after a fall and he sustained a right scapular fracture, L2 compression fracture. He also had severe acute on chronic hypovolemic hyponatremia secondary to beer potomania. Patient has history of chronic alcohol abuse and was intoxicated at time of arrival to hospital. Patient required Precedex drip briefly and was on CIWA protocol. Once withdrawal resolved discussion was made with him regarding possible kyphoplasty however secondary to recent alcohol withdrawal requiring Precedex drip decision was deferred for now per spine surgeon to have patient follow-up as an outpatient. He will be set up with a TLSO brace and will be sent home in fair condition. Discussed with patient multiple times regarding going to a longterm facility or rehab facility which was recommended however patient declined that offer. I strongly recommended to him the above as he holds a high risk of readmission. Patient understands my concerns however does not want to pursue this option at this time. Recommended to place patient in right shoulder sling and TLSO brace at discharge. Patient will be discharged in fair condition. Lastly he is on home oxygen which was recently set up for him. Initially when brought to the hospital he was found at home smoking a cigarette with oxygen tank nearby however oxygen was not running at the time per report from nursing staff in ER. Patient does not have electricity or running water in his camper. However patient states he will not be going back to the same location and he is going to another location at time of discharge where he will have access to electricity and running water. therapeutic activities services worker on board. Physical Exam Narrative: General: Sitting up in bed on 2 L nasal cannula.TLSO brace and right shoulder sling in place. Cardiovascular: RRR. No gallops. No murmurs. Lungs: Breath sound diminished in bilateral bases. No wheezing or rales., Abdomen: Normal bowel sounds, abdomen soft and nontender. Extremities: No cyanosis or clubbing. Musculoskeletal: No swollen or erythematous joints. Neurological: Unable to move right arm secondary to pain. Does have a known inferior scapular fracture. Discharge Data Studies Completed and Pending Completed Studies During Hospitalization Category Date Time Status CT chest wo con [id number] Stat Cat Scan 08/21/24 12:[address] head wo con* [id number] Stat Cat Scan 08/21/24 11:[address] head wo con* [id number] Stat Cat Scan 08/23/24 03:[address] shoulder RT wo con* [id number] Stat Cat Scan 08/21/24 16:21 Completed CXRP [XR chest 1V portable [id number]] Stat Exams 08/23/24 02:44 Completed XR chest 1V portable [id number] Stat Exams 08/21/24 11:10 Completed XR lumbar spine 2-3V* [id number] Stat Exams 08/21/24 11:10 Completed XR shoulder RT min 2V* [id number] Stat Exams 08/21/24 11:10 Completed XR thoracic spine 3V* [id number] Stat Exams 08/21/24 11:10 Completed MR lumbar spine wo con* [id number] Routine MRI 08/22/24 13:42 Completed MR thoracic spin wo con* [id number] Routine MRI 08/22/24 13:42 Completed Radiology Impressions Lumbar Spine X-Ray 08/21/24 11:10 IMPRESSION: Chronic appearing L1 compression deformity. Shoulder X-Ray 08/21/24 11:10 IMPRESSION: Partially displaced acute fracture through the right inferior scapula. Thoracic Spine X-Ray 08/21/24 11:10 IMPRESSION: Mild T6 compression deformity. Otherwise no evidence of acute fracture. Chest CT 08/21/24 12:10 IMPRESSION: 1. Acute appearing fracture through the anterior superior endplate of L2 which causes mild to moderate vertebral body height loss. Again seen is an acute fracture through the inferior right scapula. 2. Advanced COPD. Shoulder CT 08/21/24 16:21 IMPRESSION: 1. Acute displaced fracture of the inferior scapular body. 2. Acute nondisplaced fracture of the medial border of the scapula. 3. Severe emphysematous changes. The presence of pulmonary emphysema on CT is an independent risk factor for lung cancer. In the absence of a history or active diagnosis of lung cancer, it is recommended that this patient with emphysema be evaluated for enrollment in a low dose CT lung cancer screening program. Lumbar Spine MRI 08/22/24 13:42 IMPRESSION: 1. Acute compression superior endplate L2 with edema described above. No retropulsion. Loss of approximately 20% vertebral body height. 2. No high-grade central canal stenosis. 3. Disc bulging L5-S1 with impingement on the traversing S1 nerve roots in the subarticular recess. Mild RIGHT foraminal narrowing. Thoracic Spine MRI 08/22/24 13:42 IMPRESSION: No acute thoracic spine findings Chest X-Ray 08/23/24 02:44 IMPRESSION: No acute abnormality. Head CT 08/23/24 03:54 IMPRESSION: No acute intracranial findings. Laboratory Results WBC 4.94 10^3/uL (3.29-11.43) 08/24/24 03:10 RBC 3.79 10^6/uL (3.85-5.65) L 08/24/24 03:10 Hgb 11.90 g/dL (11.27-16.99) 08/24/24 03:10 Hct 35.9 % (37-53) L 08/24/24 03:10 MCV 94.7 fl (82-101) 08/24/24 03:10 MCH 31.4 pg (27-33) 08/24/24 03:10 MCHC 33.1 g/dL (30-55) 08/24/24 03:10 RDW 14.2 % (12.1-15.1) 08/24/24 03:10 Plt Count 338 10^3/cmm (157-399) 08/24/24 03:10 MPV 9.4 fL (7.4-10.4) 08/24/24 03:10 Neut % (Auto) 51.4 % 08/24/24 03:10 Lymph % (Auto) 26.5 % 08/24/24 03:10 [place] % (Auto) 14.0 % 08/24/24 03:10 Eos % (Auto) 6.9 % 08/24/24 03:10 Baso % (Auto) 1.0 % 08/24/24 03:10 Neut # (Auto) 2.54 10^3/uL (1.8-7.7) 08/24/24 03:10 Lymph # (Auto) 1.3 10^3/uL (0.8-4.8) 08/24/24 03:10 [place] # (Auto) 0.7 10^3/uL (0.2-0.9) 08/24/24 03:10 Eos # (Auto) 0.3 10^3/uL (0.0-0.8) 08/24/24 03:10 Baso # (Auto) 0.1 10^3/uL (0.0-0.1) 08/24/24 03:10 Nucleated RBC % (auto) 0 % 08/24/24 03:10 Nucleated RBCs # 0.0 /100WBC 08/24/24 03:10 Sodium 134 mmol/L (136-145) L 08/24/24 03:10 Potassium 4.4 mmol/L (3.5-5.1) 08/24/24 03:10 Chloride 95 mmol/L (98-107) L 08/24/24 03:10 Carbon Dioxide 26 mmol/L (22-29) 08/24/24 03:10 Anion Gap 17.4 (5-19) 08/24/24 03:10 BUN 15 mg/dL (8-23) 08/24/24 03:10 Creatinine 0.5 mg/dL (0.7-1.2) L 08/24/24 03:10 GFR Calculation 169.0 mL/min (90-130) H 08/24/24 03:10 Glucose 124 mg/dL (65-115) H 08/24/24 03:10 Serum Osmolality 281 mOsm/kg (278-305) 08/21/24 18:53 Calculated Osmolality 280 mOsm/kg (285-295) L 08/24/24 03:10 Calcium 8.8 mg/dL (8.5-10.5) 08/24/24 03:10 Magnesium 1.9 mg/dL (1.7-2.3) 08/24/24 03:10 Total Bilirubin 0.2 mg/dL (0.15-1.2) 08/24/24 03:10 AST 17 U/L (0-40) 08/24/24 03:10 ALT 11 U/L (0-41) 08/24/24 03:10 Alkaline Phosphatase 87 U/L (40-130) 08/24/24 03:10 Creatine Kinase 80 U/L (39-308) 08/21/24 11:25 Total Protein 6.3 g/dL (6.6-8.7) L 08/24/24 03:10 Albumin 3.5 g/dL (3.5-5.2) 08/24/24 03:10 Globulin 2.8 g/dL (1.3-4.6) 08/24/24 03:10 Urine Osmolality 377 mOsm/kg (50-1200) 08/22/24 02:59 Ur Random Sodium 49 mmol/L 08/22/24 02:59 Ethyl Alcohol 250 mg/dL (0-10) H 08/21/24 11:25 Vitals Last Vital Signs Temp 98.1 F 08/25/24 04:00 Pulse 74 08/25/24 04:00 Resp 97 H 08/25/24 04:00 BP 113/61 08/25/24 04:00 Pulse Ox 98 08/25/24 04:00 O2 Del Method Room Air 08/25/24 04:00 O2 Flow Rate 2 08/24/24 10:49 Discharge Plan Discharge Patient Disposition: Home Condition: Stable Prescriptions: New multivitamin with folic acid [Thera] 400 mcg Tablet 1 tab PO DAILY Qty: 30 0RF hydrocodone-acetaminophen 5-325 mg tablet 1 tab PO Q8H PRN (Reason: pain) Qty: 10 0RF Continued trazodone 50 mg tablet 50 mg PO BEDTIME gabapentin 300 mg capsule 300 mg PO TID magnesium oxide 400 mg (241.3 mg magnesium) tablet 400 mg PO DAILY PRN (Reason: unknown) folic acid 1 mg tablet 1 mg PO DAILY metoprolol tartrate 25 mg tablet 25 mg PO BID duloxetine 60 mg capsule,delayed release(DR/EC) 60 mg PO DAILY multivitamin with folic acid [Thera] 400 mcg Tablet 1 tab PO DAILY Qty: 30 0RF pantoprazole [Protonix] 40 mg tablet,delayed release (DR/EC) 40 mg PO QAM Qty: 30 3RF fluticasone propion-salmeterol [Advair Diskus] 500-50 mcg/dose blister with device 1 ea INHALATION BID Qty: 60 0RF albuterol sulfate [Ventolin HFA] 90 mcg/actuation HFA aerosol inhaler 1 puff INHALATION Q4H PRN (Reason: Shortness Of Breath Or Wheezing) Qty: 8.5 0RF Discontinued potassium chloride 10 mEq tablet extended release 10 meq PO DAILY PRN (Reason: Only take when you take place) Qty: 30 0RF Rx Instructions: Only when you take Lasix Discharge Orders: Discharge Order (Routine); Ordered 08/25/24 Ordered By: Rere Guy Referrals: Virgil Liz DO [Physician, Orthopedics] - 1 week Referral Note: We have notified your physician's clinic of the need for a follow-up appointment to be scheduled. If you have not heard from them within the next 2 business days, please call them directly. Laron Booker MD [Primary Care Provider, Internal Medicine] - 09/01/24 3:00 pm Discharge Diet: Cardiac Discharge Activity: As per PT/OT instructions Patient Instructions: Hydrocodone/Acetaminophen (By mouth), Multivitamins with Minerals (By mouth) (Airborne, Basic's Women's..., Kyphoplasty (DC), Opioid Safety Activity Restrictions/Additional Instructions: Contine Back Brace and Shoulder Brace as instructed please follow up with Dr. Liz's clinic in 1 week to re-assess for potential back surgery. Again as discussed, we highly recommend longterm facility for rehab at discharge. If you do change your mind, you may reach out to your primary care doctor. Discharge Attestations Time Spent in Discharge Care*: greater than 30 min Status at Discharge: Cognitive status at discharge: cognitively intact, Behavioral status at discharge: cooperative, Quality Metrics Clinical Quality Measures [ No reported AMI, CVA or VTE this stay] Coding Level of Care Code Acute Code for [facility] Fwd Diagnoses Closed lumbar vertebral fracture S32.009A Fracture healing: with routine healing Fracture morphology: wedge compression Lumbar vertebra fracture level: L2
[2024-08-25 07:56] VITALS: PULSE 68; RESP 16; O2SAT 98
[2024-08-25 08:00] VITALS: BP 106/68; PULSE 80; RESP 16; RESP 22; TEMP 36.6; O2SAT 92
[2024-08-25] MEDS: duloxetine 60 mg Capsule PO (08:11)
[2024-08-25] MEDS: nicotine 21 mg Patch 1 PATCH TRANSDERMA (08:11)
[2024-08-25] MEDS: thiamine 100 mg Tablet PO (08:12)
[2024-08-25] MEDS: metoprolol tartrate 25 mg Tablet PO (08:12)
[2024-08-25] MEDS: folic acid 1 mg Tablet PO (08:12)
[2024-08-25] MEDS: multivitamin therapeutic Tablet 1 TAB PO (08:12)
[2024-08-25 09:32] VITALS: BP 106/68; PULSE 78; RESP 22; O2SAT 90
--- NOTE | 2024-08-25 09:39 | PC.NURSE ---
Patient discharged to home. Instructions provided regarding follow up needs, new medications and to wear sling. Locked/inventory items on medsurg return to patient prior to leaving. Patient verbalized understanding. Patient taken by wheelchair to private vehicle (ready transport)
== END 2024-08-25 09:41 | disposition home or self-care (01) | DRG 896 ==
LOC: ER 12:48 → ER IP 14:05 → MEDSURG 08-22 07:50 → ICU 08-23 07:03 → MEDSURG 08-23 11:02 → ER IP 08-23 11:02 → CSU 08-24 16:43
PROVIDERS: Admitting Provider Internal Medicine; Emergency Provider Emergency Medicine; PCP Internal Medicine; Visit Provider Internal Medicine
DX: F10.229 Alcohol dependence with intoxication, unspecified (principal); G92.8 Other toxic encephalopathy; J96.21 Acute and chronic respiratory failure with hypoxia; E87.1 Hypo-osmolality and hyponatremia; I47.10 Supraventricular tachycardia, unspecified; F10.239 Alcohol dependence with withdrawal, unspecified; Y90.8 Blood alcohol level of 240 mg/100 ml or more; G25.2 Other specified forms of tremor; G62.1 Alcoholic polyneuropathy; X58.XXXD Exposure to other specified factors, subsequent encounter; S42.101A Fracture of unspecified part of scapula, right shoulder, initial encounter for closed fracture; W01.0XXA Fall on same level from slipping, tripping and stumbling without subsequent striking against object, initial encounter; E86.1 Hypovolemia; F17.210 Nicotine dependence, cigarettes, uncomplicated; F41.0 Panic disorder [episodic paroxysmal anxiety]; F32.A Depression, unspecified; J43.9 Emphysema, unspecified; K59.00 Constipation, unspecified; I10 Essential (primary) hypertension; E83.42 Hypomagnesemia; G89.29 Other chronic pain; S32.020D Wedge compression fracture of second lumbar vertebra, subsequent encounter for fracture with routine healing; Z99.81 Dependence on supplemental oxygen; Z79.891 Long term (current) use of opiate analgesic; Z87.01 Personal history of pneumonia (recurrent)
CPT/HCPCS: 36415; 70450; 71045; 71250; 72072; 72100; 72146; 72148; 73030; 73200; 80048; 80053; 80307; 82550; 83735; 83930; 83935; 84300; 85025; 93005; 96372; 96374; 96376; 97110; 97161; 97167; 97530; 97760; J1171; J1644; J2060; J2270; J2405; J3411; J3475; J7030; J9999; L0460

== ENCOUNTER 2024-11-24 13:38 | Emergency (ER) | payer MEDICAID, SELFPAY ==
[2024-11-24 13:42] VITALS: BP 117/77; PULSE 88; RESP 17; TEMP 36.4; O2SAT 91; BMI 15.8
--- OUTSIDE RECORDS SUMMARY | 2024-11-24 13:49 | XMS_ITS | Patient Health Record ---
Author Organization [facility] Address [address] [place] [address] Care Team Providers Care Lead Caster Helper Name Role Phone Rico Booker Primary Care Provider [phone] Allergies No Known Allergies Results Component Value Reference Range Notes Chest PA/Lat-[id number] Reviewed date:12/28/2023 06:11:34 AM Interpretation: Performing Lab: Notes/Report: See Below For Report Chest PA/Lat Read See Below For Report Reason For Referral No Information Medications Medication SIG (Take, Route, Frequency, Duration) Notes Start Date End Date Status traZODone HCl 50 mg Tablet TAKE ONE TABLET BY MOUTH AT BEDTIME; Duration: 30 Active QUEtiapine Fumarate ER 50 mg Tablet Extended Release 24 Hour TAKE 1 TABLET BY MOUTH EVERY EVENING; Duration: 90 Active Gabapentin 300 mg Capsule TAKE ONE CAPSU LE BY MOUTH THREE TIMES DAILY; Duration: 30 Active predniSONE 10 MG Tablet 5 tablets once a day for 4 days, 4 tablets once a day for 4 days, 3 tablets once a day for 4 days, 2 tablets once a day for 4 days, 1 tablet once a day for 4 days Orally; Duration: 20 days 10/27/2024 Active Albuterol Sulfate 108 (90 Base) MCG/ACT Aerosol Powder Breath Activated 1 puff as needed Inhalation every 4 hrs; Duration: 90 days Active Magnesium Oxide -Mg Supplement 400 (240 Mg) MG Tablet TAKE ONE TABLET BY MOUTH DAILY NEEDED; Duration: 90 Active Trelegy Ellipta 100-62.5-25 MCG/INH Aerosol Powder Breath Activated 1 puff Inhalation Once a day; Duration: 90 days Active DULoxetine HCl 60 mg Capsule Delayed Release Particles TAKE ONE CAPSULE BY MOUTH DAILY; Duration: 90 Active Sennosides-Docusate Sodium 8.6-50 MG Tablet 1 tablet as needed Orally Twice a day Not-Taking Folic Acid 1 mg Tablet TAKE ONE TABLET B Y MOUTH DAILY; Duration: 90 Active Thiamine 50 MG Capsule 2 capsules Orally Once a day Not-Taking Furosemide 20 mg Tablet TAKE ONE TABLET BY MOUTH DAILY NEEDED FOR weight gain; if you notice weight gain more THAN 3 pounds in a day OR not able TO lay flat; Duration: 30 Active Potassium Chloride ER 10 mEq Tablet Extended Release TAKE ONE TABLET BY MOUTH DAILY NEEDED ONLY when you take lasix; Duration: 18 Active Lyrica 75 MG Capsule 1 capsule Orally Tw ice a day; Duration: 30 days 09/24/2023 Not-Taking Metoprolol Tartrate 25 MG Tablet 1 tablet with food Orally Twice a day; Duration: 90 days Active Pregabalin 300 MG Capsule 1 capsule Oral ly Twice a day; Duration: 30 days 07/23/2023 Not-Taking Vitamin B 12 500 MCG Tablet 2 tablet Orally Once a day; Duration: 90 days Active Cefpodoxime Proxetil 200 MG Tablet 1 tablet with food Orally Twice a day Not-Taking Social History Tobacco Use: Social History Observation Description Date Details (start date - stop date) Current Smoker NA - NA Social History Depression Screening Social Info Question Answer Notes depression screening findings Findings Positive (9+ without suicidality) Completed 10/27/24 PHQ-9 Little interest or pleasure in doing things More than half the days Feeling down, depressed, or hopeless More than h sushma the days Trouble falling or staying asleep, or sleeping t oo much Several days Feeling tired or having little energy More than half the days Poor appetite or overeating Several days Feeling bad about yourself, or that you are a failure, or have let yourself or your family down More than half the days Trouble concentrating on thi ngs, such as reading the newspaper or watching television Not at all Moving or speaking so slowly that other people could have noticed. Or the opposite ? being so fidgety or restless that you have been moving around a lot more than usual More than half the days Thoughts that you would be b erika off , or of hurting yourself in some way Not at all Total Score 12 Interpretation Moderate Depression Drugs/Alcohol: Social Info Question Answer Notes Alcohol Screen (Audit-C) Did you have a drink containing alcohol in the past year? Yes How often did you have a drink containing alcohol in the past year? 4 or more times a week (4 points) Points 4 Interpretation Positive Drugs Have you used drugs other than those for medical reasons in the past 12 months? No Tobacco Use: Social Info Question Answer Notes Tobacco Control (Standard) Tobacco use: Current smoker How often do you smoke cigarettes? Every day How many cigarettes a day do you smoke? 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 Problem Essential hypertension (78438899) Essential (primary) hypertension (I10) Active confirmed Problem Visual hallucinations (14555547) Visual hallucinations (R44.1) Active confirmed Problem Anemia (103484110) Anemia, unspecified type (D64.9) Active confirmed Problem Chest pain (10019664) Chest pain, unspecified type (R07.9) Active confirmed Problem Chronic bronchitis (48361277) Chronic bronchitis, unspecified chronic bronchitis type (J42) Active confirmed Problem Claudication (46258160) Claudication (I73.9) Active confirmed Problem Infection of tooth (disorder) (933016980) Tooth infection (K04.7) Active confirmed Problem Chronic obstructive pulmonary disease (55432354) COPD, moderate (J44.9) Active confirmed Problem Gastroduodenitis (225665084) Gastritis without bleeding, unspecified chronicity, unspecified gastritis type (K29.70) Active confirmed Vital Signs Heart Rate 77 /min 10/27/2024 Temperature 97.5 degrees Fahrenheit 10/27/2024 Blood pressure diastolic 45 mm Hg 10/27/2024 Oximetry 86 % 06/15/2024 Height-cm 180.34 cm 10/27/2024 Weight-kg 62.6 kg 10/27/2024 Height 71 in 10/27/2024 Blood pressure systolic 109 mm Hg 10/27/2024 Weight 138 lbs 10/27/2024 BMI 19.24 kg/m2 10/27/2024 Encounters Encounter Location Date Provider Diagnosis [facility] [address] [place] [address] 01/15/2024 Rico Booker Alcoholic polyneuropathy G62.1 ; Essential (primary) hypertension I10 and Chronic bronchitis, unspecified chronic bronchitis type J42 [facility] [address] [place] [address] 02/16/2024 Rico Booker Chronic bronchitis, unspecified chronic bronchitis type J42 ; Essential (primary) hypertension I10 ; Alcoholic polyneuropathy G62.1 and Depression screen Z13.31 [facility] [address] [place] [address] 02/17/2024 Rico Booker Chronic bronchitis, unspecified chronic bronchitis type J42 [facility] [address] [place] [address] 02/29/2024 Rico Booker Infected tooth K04.7 [facility] [address] [place] [address] 06/15/2024 Rico Booker Tooth infection K04. 7 and Depression screen Z13.31 [facility] [address] [place] [address] 06/28/2024 Rico Booker Tooth infection K04. 7 ; Chemotherapy follow-up examination Z09 ; Essential (primary) hypertension I10 and Chronic bronchitis, unspecified chronic bronchitis type J42 [facility] [address] [address] 10/27/2024 Rico Booker Depression screen Z13.31 ; Anxiety about knowledge deficit F41.1 ; COPD, moderate J44.9 and Alcoholic polyneuropathy G62.1 [facility] [address] [place] [address] 03/09/2024 Rico Booker [facility] [address] [place] [address] 05/25/2024 Rico Blanc [facility] [address] [place] [phone] 06/24/2024 Rico Booker [facility] [address] [address] 06/24/2024 Rico Booker Assessments Encounter Date Diagnosis (ICD Code) Assessment Notes Treatment Notes Treatment Clinical Notes Section Notes 01/15/2024 Alcoholic polyneuropathy (ICD-10 - G62.1) 02/16/2024 [...] 06/15/2024 Tooth infection (ICD-10 - K04.7) 06/28/2024 Tooth infection (ICD-10 - K04.7) I have strongly encouraged him to follow up with the dentist. 06/28/2024 Chemotherapy follow-up examination (ICD-10 - Z09) 10/27/2024 Depression screen (ICD-10 - Z13.31) 10/27/2024 Anxiety about knowledge deficit (ICD-10 - F41.1) 10/27/2024 COPD, moderate (ICD-10 - J44.9) 06/28/2024 Essential (primary) hypertension (ICD-10 - I10) 06/15/2024 Depression screen (ICD-10 - Z13.31) 02/16/2024 Essential (primary) hypertension (ICD-10 - I10) 01/15/2024 Essential (primary) hypertension (ICD-10 - I10) 01/15/2024 Chronic bronchitis, unspecified chronic bronchitis type (ICD-10 - J42) 02/16/2024 Alcoholic polyneuropathy (ICD-10 - G62.1) 06/28/2024 Chronic bronchitis, unspecified chronic bronchitis type (ICD-10 - J42) 10/27/2024 Alcoholic polyneuropathy (ICD-10 - G62.1) 02/16/2024 Depression screen (ICD-10 - Z13.31) Plan Of Treatment Next Appt Details Provider Name:Rico Booker, 12/05/2024 02:20:00 PM, [address], [address], Insurance Providers Payer Name Payer Address Payer Phone Subscriber Number Group Number Insured Name Patient Relationship to Insured Coverage Start Date Coverage End Date [place] [address] [place] [id number] Vasyl Reis Self - patient is the insured Medications Administered Medication Instructions Date of Administration Dosage Notes dexAMETHasone 09/24/2023 10 mg Rocephin 01/29/2023 1 g dexAMETHasone 01/29/2023 10 mg dexAMETHasone 01/15/2024 10 mg Rocephin 02/29/2024 1 g Rocephin 01/15/2024 1 g Rocephin 09/24/2023 1 g Medical (General) History Medical History [...]
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
[2024-11-24 14:46] LABS: Alanine Aminotransferase 46 U/L (0-41); Albumin Level 4.1 g/dL (3.5-5.2); Alkaline Phosphatase 77 U/L (40-130); Blood Urea Nitrogen 8 mg/dL (8-23); Calcium 8.4 mg/dL (8.5-10.5); Carbon Dioxide 20 mmol/L (22-29); Chloride 92 mmol/L (98-107); Creatinine Clr Calc Pharmacy 149.3073; Globulin 2.9 g/dL (1.3-4.6); Glucose 82 mg/dL (65-115); Osmolality Calculated 271 mOsm/kg (285-295); Sodium 132 mmol/L (136-145); Total Protein 7.0 g/dL (6.6-8.7)
[2024-11-24 14:57] LABS: Acetaminophen < 5.0 ug/mL (10-30); Salicylate < 0.3 mg/dL (3-10)
[2024-11-24 14:58] LABS: Anion Gap 24.6 (5-19); Aspartate Amino Transferase 87 U/L (0-40); Potassium 4.6 mmol/L (3.5-5.1)
[2024-11-24 15:50] LABS: Hematocrit 42.1 % (37-53); Hemoglobin 14.50 g/dL (11.27-16.99); Mean Corpuscular HGB Conc 34.4 g/dL (30-55); Mean Corpuscular Hemoglobin 32.3 pg (27-33); Mean Corpuscular Volume 93.8 fl (82-101); Nucleated Red Blood Cells % 0 %; Platelet Count 330 10^3/cmm (157-399); Red Blood Count 4.49 10^6/uL (3.85-5.65); White Blood Count 5.14 10^3/uL (3.29-11.43)
[2024-11-24 17:51] VITALS: BP 112/77; PULSE 85; O2SAT 97
[2024-11-24 20:50] VITALS: PULSE 96; RESP 16; O2SAT 95
[2024-11-24 21:23] LABS: Alcohol Level 220 mg/dL (0-10)
[2024-11-24 21:34] LABS: Alcohol Level 391 mg/dL (0-10)
[2024-11-25 08:00] VITALS: PULSE 106; O2SAT 92
--- NOTE | 2024-11-25 09:32 | PC.NURSE ---
pt waiting on ride home, patient states that he wears his O2 'more than usual'. this RN took off pts O2 to determine if he was eligible for a ride w/o ambulance. Pts was able to maintain O2 sat above 90 from the start of this RNs shift until d/c. Dr. Leni munoreayed pt to wait in the for ride since O2 was maintained w/o supplemental O2.
[2024-11-25 09:38] VITALS: BP 0/0; PULSE 110; O2SAT 95
== END 2024-11-25 09:39 | disposition home or self-care (01) ==
PROVIDERS: Emergency Provider Physician Assistant; PCP Internal Medicine
DX: F10.229 Alcohol dependence with intoxication, unspecified (principal); Y90.7 Blood alcohol level of 200-239 mg/100 ml; F17.210 Nicotine dependence, cigarettes, uncomplicated; J44.9 Chronic obstructive pulmonary disease, unspecified; I10 Essential (primary) hypertension
CPT/HCPCS: 36415; 80053; 80307; 85025; 94640; 99283; J9999